=== PATIENT | female | born 1945 | race Caucasian/White ===

== ENCOUNTER → 2018-02-05 12:29 | Outpatient (CLI) | payer MEDICARE, SELFPAY ==
--- NOTE | 2018-02-05 12:33 | BI_ITS ---
MAMMOGRAPHY - BILATERAL SCREENING REASON FOR EXAM: Female, 72 years old. Routine annual screening examination. PERTINENT HISTORY: Mother with breast cancer. TECHNIQUE: Digital bilateral breast shayne (3D mammographic acquisition) in the CC and MLO projections. 2-D mediolateral oblique (MLO) and craniocaudad (CC) views of both breasts were obtained. CAD: Full Field Digital Mammography with Computer Added Detection was performed. COMPARISON: Comparison is made with prior examination dated April 22, 2015 and May 05, 2013. FINDINGS: Breast Composition: There are scattered areas of fibroglandular density. There are no dominant masses or suspicious calcifications. The right breast is larger than the left. This is unchanged. Stable 4.3 mm x 3.8 mm well-defined nodule in the anterior superior lateral portion of the right breast. This most likely represents a small lymph node. No other significant abnormalities are identified. There has been no significant change since the prior study. BI/SCREENING MAMM (CAD), BILAT IMPRESSION: Stable bilateral screening mammogram. Yearly follow-up mammogram recommended. (A) ASSESSMENT CATEGORY: BIRADS Category 2: Benign. A letter regarding these results will be sent to the patient by the facility within 30 days. Approximately 10% of breast cancers are not detected by mammography. A normal mammogram should not delay biopsy of a clinically suspicious abnormality. [id number] Electronically Signed: Juan Pablo Boo MD at 15:08 EST Tel [phone], Service support ,
--- NOTE | 2018-02-05 12:41 | BD_ITS ---
STUDY: DUAL ENERGY X-RAY ABSORPTIOMETRY / DXA REASON FOR EXAM: Female, 72 years old. Early menopause. Loss of height. TECHNIQUE: Bone Mineral Density (BMD) measurements of lumbar spine and bilateral hips were obtained. COMPARISON: Comparison is made with prior study dated January 22, 2013. FINDINGS: Lumbar Spine (L1-L4): g/cm2 (1.239) / T-score (0.6) / Z-score (2.3) Findings are suggestive of normal bone density with a low fracture risk. Left Femur Total: g/cm2 (0.937) / T-score (-0.6) / Z-score (1.0) Left Femoral Neck: g/cm2 (0.818) / T-score (-1.6) / Z-score (0.2) Right Femur Total: g/cm2 (0.923) / T-score (-0.7) / Z-score (0.9) Right Femoral Neck: g/cm2 (0.828) / T-score (-1.5) / Z-score (0.2) The T-Scores on the most recent prior examination were: Lumbar Spine (L1-L4): There has been improvement of bone density since the previous examination. Left Femur Total: which represents a worsening of 5.1%. Right Femur Total: which represents a worsening of 8.0%. BD/Dexa Bone Density Study IMPRESSION: The patient is considered osteopenic as outlined below according to World Chintan Organization (WHO) criteria with a moderate fracture risk. There has been worsening of bone density since the previous examination. Reference Information: The T-score is the number of standard deviations above or below the standard which is normal for young adults at their peak bone mineral density. The World Health Organization (WHO) interprets the T-scores as follows: Above -1 Normal bone density Between -1 and -2.5 Osteopenia Equal to / or below -2.5 Osteoporosis As a practical clinical guideline, osteopenia may be graded as follows: Mild -1 through -1.5 Moderate -1.6 through -2.0 Severe -2.1 through -2.4 The Z-score is the number of standard deviations above or below age-matched controls. A Z-score of less than -1.5 would be considered abnormal. References: 1. NIH Osteoporosis and Related Bone Diseases http://www.osteo.org 2. International Society for Clinical Densitometry http://www.iscd.org 3. National Osteoporosis Foundation http://www.nof.org Electronically Signed: Juan Pablo Boo MD at 13:18 EST Tel [phone], Service support ,
== END ==
PROVIDERS: Family Provider Nurse Practitioner; PCP Nurse Practitioner; Referring Provider Nurse Practitioner; Visit Provider Nurse Practitioner
DX: Z12.31 Encounter for screening mammogram for malignant neoplasm of breast (principal); Z78.0 Asymptomatic menopausal state; M85.80 Other specified disorders of bone density and structure, unspecified site
CPT/HCPCS: 77063; 77067; 77080

== ENCOUNTER → 2019-04-07 09:50 | Outpatient (CLI) | payer MEDICARE, SELFPAY ==
--- NOTE | 2019-04-07 09:58 | RAD_ITS ---
STUDY: X-RAY - LEFT WRIST REASON FOR EXAM: Female, 73 years old. PAIN AND SWELLING OVER WRIST NAVICULAR AREA TECHNIQUE: 3 view(s) of the wrist were obtained. COMPARISON: None. FINDINGS: Normal visualized distal radius and ulna. Normal radiocarpal articulation. Normal distal radioulnar articulation. Normal carpal bones. There is degenerative arthrosis of the carpal articulations. Normal carpometacarpal articulation of the thumb. Normal second through fifth carpometacarpal articulations. Normal visualized metacarpal bones. Calcification of the triangular fibrocartilage. 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 Calcification of the triangle fibrocartilage. Electronically Signed: Juan Pablo Boo, at 10:21 EST , Service support ,
--- NOTE | 2019-04-07 09:58 | RAD_ITS ---
STUDY: X-RAY - LEFT HAND REASON FOR EXAM: Female, 73 years old. PAIN AND SWELLING OVER WRIST AREA TECHNIQUE: 3 view(s) of the hand. COMPARISON: None. FINDINGS: Normal radiocarpal articulation. Normal distal radioulnar joint. Chondrocalcinosis of the triangular fibrocartilage. Normal visualized carpal bones. Normal carpal articulations There is degenerative arthrosis of the carpometacarpal (CMC) articulation of the thumb. Normal second through fifth carpometacarpal joints. Normal metacarpi. Normal metacarpophalangeal joint of the thumb. Normal interphalangeal joint of the thumb. Normal proximal and distal phalanges of the thumb. Normal metacarpophalangeal joints of the second through fifth fingers. Normal proximal and distal interphalangeal joints of the second through fifth fingers. Normal phalanges of the second through fifth fingers. The soft tissue structures are unremarkable. RAD/Hand Min 3 Views IMPRESSION: Degenerative changes of the carpometacarpal joint. Calcification of the triangular fibrocartilage. Electronically Signed: Juan Pablo Boo, at 10:21 EST , Service support ,
== END ==
PROVIDERS: PCP Nurse Practitioner; Referring Provider Nurse Practitioner Gerontology; Visit Provider Nurse Practitioner Gerontology
DX: M25.532 Pain in left wrist (principal); M79.642 Pain in left hand
CPT/HCPCS: 73110; 73130

== ENCOUNTER → 2019-09-04 15:19 | Outpatient (CLI) | payer MEDICARE, SELFPAY ==
--- NOTE | 2019-09-04 15:21 | BI_ITS ---
MAMMOGRAPHY - BILATERAL SCREENING REASON FOR EXAM: Female, 74 years old. Routine annual screening examination. PERTINENT HISTORY: Mother with breast cancer. TECHNIQUE: Digital bilateral breast ava (3D mammographic acquisition) in the CC and MLO projections. 2-D mediolateral oblique (MLO) and craniocaudad (CC) views of both breasts were obtained. CAD: Full Field Digital Mammography with Computer Added Detection was performed. COMPARISON: Comparison is made with prior examination dated February 05, 2018 and April 22, 2015. FINDINGS: Breast Composition: There are scattered areas of fibroglandular density. There are no dominant masses or suspicious calcifications. Once again, the right breast is larger than the left. This is unchanged. Stable 4.3 mm x 3.8 mm well-defined nodule with a central fatty hilum in the anterior upper lateral portion of the right breast. This most like represents a small lymph node. No other significant abnormalities are identified. There has been no significant change since the prior study. BI/SCREEN MAMM (CAD) W/AVA BILAT IMPRESSION: Stable bilateral screening mammogram. Yearly follow-up mammogram recommended. (A) ASSESSMENT CATEGORY: BIRADS Category 2: Benign. A letter regarding these results will be sent to the patient by the facility within 30 days. Approximately 10% of breast cancers are not detected by mammography. A normal mammogram should not delay biopsy of a clinically suspicious abnormality. [id number] Electronically Signed: Juan Pablo Boo, at 9:56 EDT , Service support ,
== END ==
PROVIDERS: PCP Nurse Practitioner; Referring Provider Nurse Practitioner; Visit Provider Nurse Practitioner
DX: Z12.31 Encounter for screening mammogram for malignant neoplasm of breast (principal); Z80.3 Family history of malignant neoplasm of breast
CPT/HCPCS: 77063; 77067

== ENCOUNTER → 2020-09-07 07:03 | Outpatient (CLI) | payer MEDICARE, SELFPAY ==
--- NOTE | 2020-09-07 07:07 | BI_ITS ---
MAMMOGRAPHY - BILATERAL SCREENING REASON FOR EXAM: Female, 75 years old. Routine annual screening examination. PERTINENT HISTORY: Mother with breast cancer. TECHNIQUE: Digital bilateral breast ava (3D mammographic acquisition) in the CC and MLO projections. 2-D mediolateral oblique (MLO) and craniocaudad (CC) views of both breasts were obtained. CAD: Full Field Digital Mammography with Computer Added Detection was performed. COMPARISON: Comparison is made with prior study dated 09/04/2019 and 02/05/2018. FINDINGS: Breast Composition: There are scattered areas of fibroglandular density. There are no dominant masses or suspicious calcifications. Stable 4.3 mm x 3.8 mm well-defined nodule with a central fatty hilum in the anterior upper lateral portion of the right breast suggestive of a small lymph node. No other significant abnormalities are identified. There has been no significant change since the prior study. BI/SCRN MAMM (CAD)W/AVA BILAT IMPRESSION: Stable bilateral screening mammogram. Yearly follow-up mammogram recommended. (A) ASSESSMENT CATEGORY: BIRADS Category 2: Benign. A letter regarding these results will be sent to the patient by the facility within 30 days. Approximately 10% of breast cancers are not detected by mammography. A normal mammogram should not delay biopsy of a clinically suspicious abnormality. [id number] Electronically Signed: Juan Pablo Boo MD at 9:29 EDT , Service support ,
== END ==
PROVIDERS: PCP Nurse Practitioner; Referring Provider Nurse Practitioner; Visit Provider Nurse Practitioner
DX: Z12.31 Encounter for screening mammogram for malignant neoplasm of breast (principal)
CPT/HCPCS: 77063; 77067

== ENCOUNTER → 2020-12-16 12:14 | Outpatient (CLI) | payer MEDICARE, SELFPAY ==
--- NOTE | 2020-12-16 12:20 | BD_ITS ---
STUDY: DUAL ENERGY X-RAY ABSORPTIOMETRY / DXA REASON FOR EXAM: Female, 75 years old. 627.8Menopausal postmenopausalBONE DENSITY REASON FOR EXAM TECHNIQUE: Bone Mineral Density (BMD) measurements of lumbar spine and bilateral hips were obtained. COMPARISON: Comparison is made with prior examination dated 02/05/2018. FINDINGS: Lumbar Spine (L1-L4): g/cm2 (1.027) / T-score (-0.2) / Z-score (2.2) Findings are suggestive of normal bone density with a low fracture risk. Left Femur Total: g/cm2 (0.835) / T-score (-0.9) / Z-score (0.9) Left Femoral Neck: g/cm2 (0.662) / T-score (-1.7) / Z-score (0.4) Right Femur Total: g/cm2 (0.867) / T-score (-0.6) / Z-score (1.1) Right Femoral Neck: g/cm2 (0.640) / T-score (-1.9) / Z-score (0.2) The T-Scores on the most recent prior examination were: Lumbar Spine (L1-L4): There has been worsening of bone density since the previous examination. Left Femur Total: which represents a worsening of 4.3%. Right Femur Total: which represents an improvement of 0.9%. BD/Dexa Bone Density Study IMPRESSION: The patient is considered osteopenic as outlined below according to World Chintan Organization (WHO) criteria with a moderate fracture risk. There has been worsening of bone density since the previous examination. Reference Information: The T-score is the number of standard deviations above or below the standard which is normal for young adults at their peak bone mineral density. The World Health Organization (WHO) interprets the T-scores as follows: Above -1 Normal bone density Between -1 and -2.5 Osteopenia Equal to / or below -2.5 Osteoporosis As a practical clinical guideline, osteopenia may be graded as follows: Mild -1 through -1.5 Moderate -1.6 through -2.0 Severe -2.1 through -2.4 The Z-score is the number of standard deviations above or below age-matched controls. A Z-score of less than -1.5 would be considered abnormal. References: 1. NIH Osteoporosis and Related Bone Diseases www osteo.org 2. International Society for Clinical Densitometry www iscd.org 3. National Osteoporosis Foundation www nof.org Electronically Signed: Juan Pablo Boo MD at 8:51 EDT , Service support ,
== END ==
PROVIDERS: PCP Nurse Practitioner; Referring Provider Nurse Practitioner; Visit Provider Nurse Practitioner
DX: Z78.0 Asymptomatic menopausal state (principal); N95.9 Unspecified menopausal and perimenopausal disorder; M85.80 Other specified disorders of bone density and structure, unspecified site
CPT/HCPCS: 77080

== ENCOUNTER 2021-11-15 16:21 | Emergency (ER) | payer MEDICARE, SELFPAY ==
[2021-11-15 16:22] VITALS: BP 156/88; PULSE 101; RESP 18; TEMP 36.9; O2SAT 100; BMI 30.6
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
--- NOTE | 2021-11-15 16:35 | RAD_ITS ---
STUDY: XR Hand Min 3 Views REASON FOR EXAM: Female, 76 years old. pain TECHNIQUE: XR Hand Min 3 Views RIGHT COMPARISON: None. FINDINGS: Normal radiocarpal articulation. Normal distal radioulnar joint. Normal visualized carpal bones. There is degenerative joint disease of the carpal articulations. There is degenerative arthrosis of the carpometacarpal (CMC) articulation of the thumb. Normal second through fifth carpometacarpal joints. Normal metacarpi. Normal metacarpophalangeal joint of the thumb. Normal interphalangeal joint of the thumb. Normal proximal and distal phalanges of the thumb. Normal metacarpophalangeal joints of the second through fifth fingers. Normal proximal and distal interphalangeal joints of the second through fifth fingers. Normal phalanges of the second through fifth fingers. The soft tissue structures are unremarkable. 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 There is degenerative arthrosis of the carpometacarpal (CMC) articulation of the thumb. Electronically Signed: Armando Pollack MD at 17:01 EDT ,
[2021-11-15] MEDS: Cephalexin 250 MG Capsule 500 MG PO (17:04)
[2021-11-15] MEDS: Ibuprofen 600 MG Tablet PO (17:04)
[2021-11-15 17:33] VITALS: PULSE 105; RESP 16; O2SAT 99
== END 2021-11-15 17:33 | disposition home or self-care (01) ==
PROVIDERS: Emergency Provider Student in an Organized Health Care Education/Training Program; PCP Nurse Practitioner Family; Visit Provider Student in an Organized Health Care Education/Training Program
DX: L03.113 Cellulitis of right upper limb (principal); F03.90 Unspecified dementia, unspecified severity, without behavioral disturbance, psychotic disturbance, mood disturbance, and anxiety; Z79.899 Other long term (current) drug therapy
CPT/HCPCS: 73130; 99283

== ENCOUNTER 2022-06-04 17:46 | Emergency (ER) | payer MEDICARE, SELFPAY ==
[2022-06-04 17:47] VITALS: BP 90/55; PULSE 79; RESP 17; TEMP 35.9; O2SAT 97; BMI 29.0
[2022-06-04 17:53] VITALS: BP 90/55; PULSE 71; RESP 17; O2SAT 98
--- NOTE | 2022-06-04 18:00 | EKG12_ITS ---
Test Reason : POSS SYNCOPE Blood Pressure : / mmHG Vent. Rate : 074 BPM Atrial Rate : 074 BPM P-R Int : 160 ms QRS Dur : 072 ms QT Int : 406 ms P-R-T Axes : 033 -01 013 degrees QTc Int : 450 ms Normal sinus rhythm Inferior infarct , age undetermined Abnormal ECG Confirmed by JAYRO DON, KELLY ([id number]), editor at large CHARITO HAJI ([id number]) on 06/07/2022 10:01:19 AM Referred By: GABRIELA/ETHAN Confirmed By:AKIKO DIAL MD
--- NOTE | 2022-06-04 18:10 | CT_ITS ---
STUDY: CT BRAIN WITHOUT CONTRAST REASON FOR EXAM: Female, 77 years old. confusion Individualized dose optimization techniques were used for this CT. TECHNIQUE: Transaxial CT imaging of the brain was performed without administration of intravenous contrast material. COMPARISON: 05.16.16 FINDINGS: There are calcifications noted in the distal vertebral arteries. There are calcifications noted in the cavernous carotid arteries. This is consistent for atherosclerotic disease. Normal calvarium. Normal soft tissues. There is mild cerebral atrophy with widening of the extra-axial spaces and ventricular dilatation. There are areas of decreased attenuation within the white matter tracts of the supratentorial brain, consistent with microvascular disease changes. Normal basal ganglia and thalami. Normal brainstem. There is mild cerebellar atrophy. There is no intracranial hemorrhage. There are no findings of an acute ischemic infarction. Normal visualized paranasal sinuses. ASPECTS Score for Acute Strokes: 12/12 CT/Brain/Head without Contrast IMPRESSION: There are no acute findings. Chronic involutional changes of the brain. Electronically Signed: Armando Pollack MD at 18:59 EDT ,
--- NOTE | 2022-06-04 18:11 | EX.ED.DYSGE1 ---
HPI History of Present Illness Chief Complaint: Alt LOC Detail of Chief Complaint: Syncope/mental status change Informant: family Narrative Narrative: Patient presents to the emergency department via EMS with complaint of mental status change. Apparently they were at a birthday libertarian with family and while seated she was noted to be going in and out of consciousness.. On EMS arrival patient was hypotensive. Patient has not been ill recently. Patient is a very poor historian as she has history of dementia that she has been been diagnosed with for about 7 or 8 years. The history comes from and family members. Patient has never had an episode like this before. PFSH PFSH Medical History Dementia Hyperlipidemia Hypertension Kidney stones Non-smoker Home Medications Quinapril Hcl [Accupril] 10 mg PO DAILY 07/31/16 [History Last Taken 07/31/16] diazepam 2 mg tablet 2 mg PO QHS PRN PRN Muscle Spasm ##5 07/31/16 [Rx Last Taken Unknown] memantine 10 mg tablet 10 mg PO BID 07/31/16 [History Last Taken 07/31/16] cephalexin 250 mg/5 mL oral suspension 500 mg (10 mL) PO TID 7 days #210 mL 11/15/21 [Rx Last Taken Unknown] lisinopril 10 mg tablet 10 mg PO DAILY 06/04/22 [History Last Taken Unknown] Allergy/AdvReac Type Severity Reaction Status Date / Time No Known Allergies Allergy Verified 06/04/22 17:52 Surgical History History of hysterectomy Social History Smoking Status: Never smoker ROS ROS ED Review of Systems ROS Unobtainable: due to mental condition and due to mental status EXAM Physical Exam Const Vital Signs: 06/04/22 17:47 06/04/22 17:53 06/04/22 18:58 Temperature 96.7 F L Temperature Source Temporal Pulse Rate 79 71 93 Respiratory Rate 17 17 15 Blood Pressure 90/55 L 90/55 L 106/65 Blood Pressure Mean 66 66 78 Pulse Ox 97 98 98 Oxygen Delivery Method Room Air Room Air Room Air Positive well nourished and well developed General Appearance ED: well developed and NAD HEENT Reports TM's clear and moist mucous membranes normocephalic and atraumatic; Negative for trauma or tenderness Tympanic Membrane ED: Yes TM's clear Eyes PERRL and EOMs intact bilaterally General Eye ED: Negative for pale conjunctiva or scleral icterus Neck no lymphadenopathy, supple and no JVD General: Negative for tenderness Chest Wall inspection of chest normal and palpation of chest normal Chest: Negative for tenderness Resp normal respiratory effort and clear to auscultation bilaterally Effort and Inspection: Negative for respiratory distress or pain with movement Auscultation: Negative for rhonchi, wheezes or diminished lung sounds Cardio regular rate, regular rhythm, S1 normal heart sound, S2 normal heart sound and no murmurs Peripheral Pulses: pulses 2+ throughout GI normal to inspection, nondistended, normoactive bowel sounds, soft to palpation, non-tender, non-distended and no masses Back/Spine no CVA tenderness and no thoracic nor lumbar tenderness Extremity normal to inspection General Extremety ED: Negative for edema General Extremity: Negative for edema Neuro oriented x3, CN's II-XII intact bilaterally, no sensory deficits noted and gait normal Neuro Narrative: Patient is awake and alert to person. She attempts to follow commands. No focal deficits noted. Sensorium / Orientation: awake, alert, oriented to person, oriented to place and oriented to time Motor Exam: strength 5/5 throughout and strength abnormal Psych mental status grossly normal Skin no rashes or lesions noted and no wounds MDM MDM MDM Narrative Medical decision making narrative: Patient presents with near syncopal episode and hypotension while at a birthday libertarian. Prior to patient's episode she was blowing out some candles on a cake. Patient's not had an episode like this before. She is not a good historian therefore the history comes from the . EKG obtained on arrival showed a sinus rhythm with a rate of 74 bpm with no acute ST segment changes. CBC with differential was normal. Chemistries were normal. BUN 20 and creatinine 1.49. Troponin was normal at 12. CT scan of the brain without contrast showed chronic involutional changes with no acute findings. Urinalysis was normal. 1 department she was given a liter normal same fluid bolus and her blood pressure normalized. She was ambulated in the department and was able to ambulate without difficulty. Her and family believes she is back to her baseline. At this point etiology of her episode unclear although I suspect likely vagal reaction. I advised on pushing fluids and follow-up with primary care physician within next 3 to 5 days. Lab Data Attestation: I reviewed the patient's lab results. Labs: Laboratory Results - last 24 hr 06/04/22 06/04/22 06/04/22 17:50 17:50 18:21 WBC 9.3 RBC 4.88 Hgb 14.2 Hct 42.6 MCV 87.3 MCH 29.1 MCHC 33.3 RDW Std Deviation 42.7 RDW Coeff of Karen 13.4 Plt Count 186 MPV 8.9 Immature Gran % (Auto) 0.500 Neut % (Auto) 57.7 Lymph % (Auto) 32.4 [place] % (Auto) 8.1 Eos % (Auto) 0.9 Baso % (Auto) 0.4 Absolute Neuts (auto) 5.3 Absolute Lymphs (auto) 3.00 Nucleated RBC % 0 Sodium 140 Potassium 3.8 Chloride 110 H Carbon Dioxide 24.0 Anion Gap 6 BUN 20 H Creatinine 1.49 H Estim Creat Clear Calc 24.24 Est GFR (MDRD) Af Amer 44 L Est GFR (MDRD) Non-Af 36 L BUN/Creatinine Ratio 13.4 Glucose 183 H Calcium 9.3 Troponin I High Sens 12 Urine Color Yellow Urine Clarity Clear Urine pH 5.0 Ur Specific [place] 1.020 Urine Protein 30 H Urine Glucose (UA) Normal Urine Ketones Negative Urine Occult Blood 50 H Urine Nitrite Negative Urine Bilirubin Negative Urine Urobilinogen 1 H Ur Leukocyte Esterase Negative Urine RBC 0-5 SEEN Urine WBC 0 SEEN Ur Squamous Epith Cells 0 SEEN Urine Bacteria 0 SEEN Hyaline Casts 5-10 SEEN Urine Mucus RARE Radiography Diagnostic Testing: Clinical Impression(s) from Imaging Studies Brain CT 06/04/22 18:10 IMPRESSION: There are no acute findings. Chronic involutional changes of the brain. Electronically Signed: Armando Pollack MD at 18:59 EDT , EKG Initial EKG: Attestation: I personally reviewed and interpreted this EKG as follows: Comments: Sinus rhythm with a rate of 74 bpm with no acute ST segment changes noted. Discharge Plan Triage Chief Complaint: Alt LOC ED Provider: Ungur,Remus Dx/Rx/DC Orders Clinical Impression: Syncope, near, Transient hypotension, Acute renal insufficiency Instructions: ED Fainting, Vagal Reaction, ED Near-Fainting, Uncertain Cause Prescriptions: No Action memantine 10 MG tablet 10 mg PO BID Quinapril Hcl [Accupril] 10 MG tablet 10 mg PO DAILY diazepam 2 MG tablet 2 mg PO QHS PRN PRN (Reason: Muscle Spasm) Qty: 5 0RF cephalexin 250 mg/5 mL suspension for reconstitution 500 mg PO TID 7 Days Qty: 210 0RF lisinopril 10 mg tablet 10 mg PO DAILY Label Comments: TAKE 1 TABLET BY MOUTH ONCE DAILY Primary Care Provider: Marivel Cox Referrals: Marivel Cox, [facility] [Primary Care Provider] - 3-5 Days Disposition Disposition: Home, Self Care
[2022-06-04] MEDS: 0.9% Normal Saline 1,000 ML 1000 ML IV (18:12)
[2022-06-04 18:18] LABS: Absolute Neutrophil Count 5.3 X10^3/uL (2.0-7.7); Basophil# 0.04 X10^3/uL; Basophil% 0.4 % (0-1); Eosinophil# 0.08 X10^3/uL; Eosinophils% 0.9 % (0-5); Hematocrit 42.6 % (37-47); Hemoglobin 14.2 g/dL (12.0-15.0); Lymphocyte % 32.4 % (19-41); Mean Corp Hgb Conc 33.3 g/dL (32-36); Mean Corpuscular Hgb 29.1 pg (27.0-32.0); Mean Corpuscular Volume 87.3 fL (81-99); Mean Platelet Vol. 8.9 fl (6.2-12.0); Monocyte# 0.75 X10^3/uL; Monocyte% 8.1 % (0-10); NRBC Flagged by Analyzer 0 % (0-5); Neutrophil # 5.33 X10^3/uL (2.7-7.7); Neutrophil % 57.7 % (47-70); Platelet Count 186 K/mm3 (150-450); RBC Distribution Width CV 13.4 % (11.6-14.6); RBC Distribution Width SD 42.7 fl (35.1-43.9); Red Blood Count 4.88 M/mm3 (4.2-5.4); White Blood Count 9.3 K/mm3 (4.4-11.0)
[2022-06-04 18:29] LABS: Bacteria 0 SEEN /hpf (None Seen); Squamous Epithelial Cells - UA 0 SEEN /hpf (5-10); White Blood Cells 0 SEEN /hpf (0-5)
[2022-06-04 18:30] LABS: Color, Urine Yellow (Yellow); Glucose, Dipstick Normal (Normal); Ketone-Dipstick Negative (Negative); Leukocyte Esterase-Dipstick Negative /ul (Negative); Nitrite-Dipstick Negative (Negative); Occult Blood-Urine 50 /ul (Negative); Protein-Dipstick 30 mg/dl (Negative); Urine Bilirubin Dipstick Negative (Negative); Urine Clarity Clear (Clear); Urine Urobilinogen 1 mg/dl (Normal)
[2022-06-04 18:35] LABS: Anion Gap 6 (5-15); BUN 20 mg/dL (7-18); BUN/Creat Ratio 13.4 RATIO (10-20); Calcium,Total 9.3 mg/dL (8.5-10.1); Chloride 110 mmol/L (98-107); Creatinine, Serum 1.49 mg/dL (0.55-1.02); EST Glomerular Filtration Rate 36 mL/min (>60); Est Glom Filt Rate - Afr Amer 44 mL/min (>60); Estimated Creatinine Clearance 24.24 ml/min; Glucose 183 mg/dL (74-106); Potassium 3.8 mmol/L (3.5-5.1); Sodium Level 140 mmol/L (136-145); Troponin-I HS (w/2H Reflex) 12 pg/mL (3.0-54.0)
[2022-06-04 18:42] LABS: Hyaline Cast 5-10 SEEN /lpf (0-5)
[2022-06-04 18:43] LABS: Mucous, Urine RARE /hpf (<or=2+); Red Blood Cells-Urine 0-5 SEEN /hpf (0-5)
[2022-06-04 18:58] VITALS: BP 106/65; PULSE 93; RESP 15; O2SAT 98
[2022-06-04 19:53] VITALS: BP 140/62; PULSE 93; RESP 20; O2SAT 95
[2022-06-04 20:15] LABS: Reflex Troponin-HS? (from REC) Y
== END 2022-06-04 20:28 | disposition home or self-care (01) ==
PROVIDERS: Emergency Provider Emergency Medicine; PCP Nurse Practitioner Family; Visit Provider Emergency Medicine
DX: R55 Syncope and collapse (principal); E78.5 Hyperlipidemia, unspecified; I10 Essential (primary) hypertension; I95.89 Other hypotension; N28.9 Disorder of kidney and ureter, unspecified; R41.82 Altered mental status, unspecified; Z79.899 Other long term (current) drug therapy
CPT/HCPCS: 70450; 80048; 81001; 84484; 85025; 93005; 96360; 96361; 99285

== ENCOUNTER 2023-01-12 16:42 | Emergency (ER) | payer MEDICARE, SELFPAY ==
[2023-01-12 16:43] VITALS: PULSE 98; RESP 16; TEMP 37.2; O2SAT 100
[2023-01-12 16:58] VITALS: BP 137/78; PULSE 89; RESP 20; O2SAT 97
--- NOTE | 2023-01-12 17:18 | EKG12_ITS ---
Test Reason : WEAKNESS Blood Pressure : / mmHG Vent. Rate : 088 BPM Atrial Rate : 088 BPM P-R Int : 144 ms QRS Dur : 070 ms QT Int : 374 ms P-R-T Axes : 015 005 034 degrees QTc Int : 452 ms Sinus rhythm with Premature atrial complexes with Aberrant conduction Nonspecific ST abnormality Abnormal ECG Confirmed by JAYRO DON, KELLY ([id number]), supervising editor news reel LONG PEDRO [id number]) on 01/15/2023 8:28:36 AM Referred By: Confirmed By:AKIKO DIAL MD
--- NOTE | 2023-01-12 17:19 | EX.ED.DYSGE1 ---
HPI History of Present Illness Chief Complaint: Weakness Informant: spouse/S.O. Limited: dementia Narrative Narrative: Patient is a 77-year-old female with history of severe dementia, nonverbal as well as hypertension presenting for increased malaise and fatigue today. She seemed fine yesterday per and ate dinner like normal (they had pizza). He dropped her off this morning at her care center and there she had decreased activity and slept most the day. She is also noted to be coughing, sneezing having watery eye. She did not really eat breakfast or lunch today. As its the weekend coming up the wanted to bring her in and have her evaluated to make sure nothing more severe going on. No report of any fevers. While driving here she did have an episode of urinary incontinence the does not think the center took her to the bathroom like they are supposed to today. In addition she seems to point to her throat as if it was bothering her. PFSH PFSH Medical History Dementia Hyperlipidemia Hypertension Kidney stones Non-smoker Home Medications Quinapril Hcl [Accupril] 10 mg PO DAILY 07/31/16 [History Last Taken 07/31/16] diazepam 2 mg tablet 2 mg PO QHS PRN PRN Muscle Spasm ##5 07/31/16 [Rx Last Taken Unknown] memantine 10 mg tablet 10 mg PO BID 07/31/16 [History Last Taken 07/31/16] cephalexin 250 mg/5 mL oral suspension 500 mg (10 mL) PO TID 7 days #210 mL 11/15/21 [Rx Last Taken Unknown] lisinopril 10 mg tablet 10 mg PO DAILY 06/04/22 [History Last Taken Unknown] nirmatrelvir 300 mg (150 mg x2)-ritonavir 100 mg tablet,dose pack (Paxlovid) See Rx Instructions PO .COMPLEX #30 tabs 01/12/23 [Rx Last Taken Unknown] Allergy/AdvReac Type Severity Reaction Status Date / Time No Known Allergies Allergy Verified 01/12/23 16:43 Surgical History History of hysterectomy Social History Smoking Status: Never smoker ROS ROS ED Review of Systems ROS Unobtainable: other Details: Dementia, nonverbal Constitutional Constitutional ED: Denies fever(s) Respiratory/Chest Respiratory/Chest: Reports cough EXAM Physical Exam Const Vital Signs: 01/12/23 16:43 01/12/23 16:58 01/12/23 16:58 Temperature 98.9 F Temperature Source Temporal Pulse Rate 98 89 Respiratory Rate 16 20 H Respiratory Pattern Normal Blood Pressure 137/78 H Blood Pressure Mean 97 Pulse Ox 100 97 Oxygen Delivery Method Room Air Room Air 01/12/23 18:21 Temperature Temperature Source Pulse Rate 98 Respiratory Rate 16 Respiratory Pattern Blood Pressure 107/76 Blood Pressure Mean 86 Pulse Ox 97 Oxygen Delivery Method Positive well nourished and well developed General Appearance ED: well developed and NAD HEENT Reports TM's clear and moist mucous membranes Tympanic Membrane ED: Yes TM's clear Eyes PERRL and EOMs intact bilaterally Eyes Narrative: tearing of eyes Neck supple and no JVD Chest Wall inspection of chest normal and palpation of chest normal Resp normal respiratory effort and clear to auscultation bilaterally Cardio regular rate and regular rhythm GI normal to inspection, nondistended, normoactive bowel sounds and non-tender Back/Spine no CVA tenderness Extremity normal to inspection Neuro Neuro Narrative: at baseline , nonverbal Sensorium / Orientation: alert and orientation impaired Psych mental status grossly normal Skin no rashes or lesions noted and no wounds MDM MDM MDM Narrative Medical decision making narrative: Patient evaluated for 1 day of weakness and cough. She appears nontoxic and in no acute distress. Vital signs are normal. No increased work of breathing. Does have a mild shallow cough on evaluation. Differential includes viral illness, aspiration pneumonia, urinary tract infection or dehydration. CBC, CMP and chest x-ray obtained as well as COVID test. Patient is COVID-positive which likely explains her symptoms. CBC is normal and CMP shows a mildly elevated creatinine of 1.2 which appears to be at her baseline if not slightly improved. She is given a 500 cc bolus in the ER. Unable to provide a urine sample but given I have another source of her symptoms will not attempt another straight cath. Chest x-rays not show any acute infiltrate. Patient is ambulated with no desaturation. At this time I do not think she requires admission. She is a candidate for Paxlovid due to her age. is agreeable with giving it to her. She will need to crush it up as she does not take pills. He is counseled and side effects of Paxlovid and if she experiences signs of dehydration, dizziness, worsening symptoms difficulty breathing she should return to the emergency room. He verbalizes agreement understanding of this and will encourage fluids at home. Discussed using honey to help with cough. Can also use [id number] cough medicines as long as they do not contain a decongestant. Lab Data Attestation: I reviewed the patient's lab results. Labs: Laboratory Results - last 24 hr 01/12/23 17:28 WBC 8.9 RBC 5.08 Hgb 14.5 Hct 45.8 MCV 90.2 MCH 28.5 MCHC 31.7 L RDW Std Deviation 42.4 RDW Coeff of Karen 13.0 Plt Count 106 L MPV 8.8 Immature Gran % (Auto) 0.200 Neut % (Auto) 60.8 Lymph % (Auto) 21.8 [place] % (Auto) 16.5 H Eos % (Auto) 0.3 Baso % (Auto) 0.4 Absolute Neuts (auto) 5.4 Absolute Lymphs (auto) 1.95 Nucleated RBC % 0 Sodium 138 Potassium 3.9 Chloride 110 H Carbon Dioxide 25.0 Anion Gap 3 L BUN 20 H Creatinine 1.20 H Est GFR (MDRD) Af Amer 56 L Est GFR (MDRD) Non-Af 46 L BUN/Creatinine Ratio 16.7 Glucose 93 Calcium 8.7 Total Bilirubin 0.50 AST 12 L ALT 10 L Alkaline Phosphatase 83 Total Protein 7.0 Albumin 3.3 Globulin 3.7 Albumin/Globulin Ratio 0.9 Radiography Chest X-Ray - ED: 1 View, Read by ED Physician, Read by Radiologist and No Acute Disease Diagnostic Testing: Clinical Impression(s) from Imaging Studies Chest X-Ray 01/12/23 17:37 IMPRESSION: No active disease. Electronically Signed: Roberto Dey MD at 18:11 EST , Rhythm Strip Rhythm Strip: Sinus Rhythm Rate: 88 Ectopy: None EKG Initial EKG: Attestation: I personally reviewed and interpreted this EKG as follows: Interpretation: Sinus Rhythm Comments: Sinus rhythm at a rate of 88 bpm with PAC Normal axis Normal intervals Normal ST segments Discharge Plan Triage Chief Complaint: Weakness ED Provider: Lynn Weinberg Dx/Rx/DC Orders Clinical Impression: COVID-19, Weakness Instructions: Coronavirus Disease 2019 (COVID-19): Caring for Yourself or Others Prescriptions: New Paxlovid 300 mg (150 mg x 2)-100 mg tablets,dose pack See Rx Instructions .ROUTE .COMPLEX Qty: 30 0RF Rx Instructions: take TWO 150 mg tablets of nirmatrelvir with ONE 100 mg tablet of ritonavir twice daily for 5 days. Crush pills and mix with soft food. No Action memantine 10 MG tablet 10 mg PO BID Quinapril Hcl [Accupril] 10 MG tablet 10 mg PO DAILY diazepam 2 MG tablet 2 mg PO QHS PRN PRN (Reason: Muscle Spasm) Qty: 5 0RF cephalexin 250 mg/5 mL suspension for reconstitution 500 mg PO TID 7 Days Qty: 210 0RF lisinopril 10 mg tablet 10 mg PO DAILY Patient Comments: TAKE 1 TABLET BY MOUTH ONCE DAILY Primary Care Provider: Marivel Cox Referrals: Marivel Cox, [facility] MANAGER-C [Primary Care Provider] - Activity Restrictions/Additional Instructions: Encourage fluids. Ms. Machado does have a COVID-19 infection which likely cause of her symptoms. Because of the acute onset she is a candidate for the antiviral medicine, Paxlovid. You can crush up the pills and mix with applesauce or other food that she would like/tolerate. Encourage fluids to prevent dehydration. If she seems to be worsening her have difficulty breathing please return to the emergency room. She may continue taking her memantine.
[2023-01-12] MEDS: 0.9% Normal Saline (500mL Bag) 500 ML 999 ML IV (17:31)
[2023-01-12 17:35] LABS: Absolute Lymphocyte Count 1.95 X10^3/uL (0.83-4.51); Absolute Neutrophil Count 5.4 X10^3/uL (2.0-7.7); Basophil# 0.04 X10^3/uL; Basophil% 0.4 % (0-1); Eosinophil# 0.03 X10^3/uL; Eosinophils% 0.3 % (0-5); Hematocrit 45.8 % (37-47); Hemoglobin 14.5 g/dL (12.0-15.0); Lymphocyte # 1.95 X10^3/ul (0.83-4.51); Lymphocyte % 21.8 % (19-41); Mean Corp Hgb Conc 31.7 g/dL (32-36); Mean Corpuscular Hgb 28.5 pg (27.0-32.0); Mean Corpuscular Volume 90.2 fL (81-99); Mean Platelet Vol. 8.8 fl (6.2-12.0); Monocyte# 1.47 X10^3/uL; Monocyte% 16.5 % (0-10); NRBC Flagged by Analyzer 0 % (0-5); Neutrophil # 5.42 X10^3/uL (2.7-7.7); Neutrophil % 60.8 % (47-70); Platelet Count 106 K/mm3 (150-450); RBC Distribution Width SD 42.4 fl (35.1-43.9); Red Blood Count 5.08 M/mm3 (4.2-5.4); White Blood Count 8.9 K/mm3 (4.4-11.0)
--- NOTE | 2023-01-12 17:37 | RAD_ITS ---
STUDY: X-RAY CHEST REASON FOR EXAM: Female, 77 years old. cough TECHNIQUE: Single AP portable view of the chest. COMPARISON: None. FINDINGS: The lungs are clear and expanded. Slightly elevated right hemidiaphragm. Normal size heart. Normal mediastinum and carlos a. Normal visualized pulmonary arteries. Normal visualized aortic arch and descending thoracic aorta. There is a dextroscoliosis of the thoracic spine. Normal visualized ribs, clavicles, and shoulders. There is no demonstrated abnormality of the visualized soft tissue structures of the upper abdomen. RAD/Chest 1 View (Portable) IMPRESSION: No active disease. Electronically Signed: oRberto Dey MD at 18:11 EST ,
[2023-01-12 17:52] LABS: ALB/GLOB Ratio 0.9 RATIO (0.9-2.4); AST(SGOT) 12 U/L (15-37); Alanine Aminotransfer ALT/SGPT 10 U/L (13-56); Albumin, Serum 3.3 g/dL (3.2-5.0); Alkaline Phosphatase 83 U/L (45-117); Anion Gap 3 (5-15); BUN 20 mg/dL (7-18); BUN/Creat Ratio 16.7 RATIO (10-20); Calcium,Total 8.7 mg/dL (8.5-10.1); Chloride 110 mmol/L (98-107); EST Glomerular Filtration Rate 46 mL/min (>60); Est Glom Filt Rate - Afr Amer 56 mL/min (>60); Globulin 3.7 g/dL (2.2-4.2); Glucose 93 mg/dL (74-106); Potassium 3.9 mmol/L (3.5-5.1); Sodium Level 138 mmol/L (136-145)
[2023-01-12 18:17] VITALS: O2SAT 99
[2023-01-12 18:21] VITALS: BP 107/76; PULSE 98; RESP 16; O2SAT 97
[2023-01-12 19:19] VITALS: BP 107/76
== END 2023-01-12 19:20 | disposition home or self-care (01) ==
PROVIDERS: Emergency Provider Emergency Medicine; PCP Nurse Practitioner Family; Visit Provider Emergency Medicine
DX: U07.1 COVID-19 (principal); F03.90 Unspecified dementia, unspecified severity, without behavioral disturbance, psychotic disturbance, mood disturbance, and anxiety; R53.1 Weakness; I10 Essential (primary) hypertension; E78.5 Hyperlipidemia, unspecified
CPT/HCPCS: 71045; 80053; 85025; 87811; 90471; 93005; 96360; 99283; J7040; A4216

== ENCOUNTER 2023-05-23 10:42 | Emergency (ER) | payer MEDICARE, SELFPAY ==
[2023-05-23] VITALS (13 sets, daily range): BP systolic 114–147; BP diastolic 70–127; PULSE 61–84; RESP 12–18; TEMP 35.9–37; O2SAT 95–97; BMI 27.3
--- NOTE | 2023-05-23 11:10 | EDS_ITS ---
HPI History of Present Illness Chief Complaint: Cough Informant: spouse/S.O. Limited: dementia Onset/Context/Timing Onset: Yesterday Context: Gradual Onset Timing: Continuous Quality: Decreased activity Location: Generalized Worsened by: Nothing Relieved by: Nothing Narrative Narrative: Patient presents with cough that has been getting worse over the past couple days. states that the patient has not been as active today. denies any sputum production. denies any subjective fevers or chills. denies any nausea, vomiting, or diarrhea. Patient has a history of dementia and is nonverbal. denies any difficulty breathing. states he had a recent upper respiratory infection. PFSH PFS Medical History Dementia Hyperlipidemia Hypertension Kidney stones Non-smoker Home Medications memantine 10 mg tablet 10 mg PO BID 07/31/16 [History Last Taken 05/22/23] Allergy/AdvReac Type Severity Reaction Status Date / Time No Known Allergies Allergy Verified 05/23/23 10:46 Surgical History History of hysterectomy Social History Smoking Status: Never smoker ROS ROS ED Review of Systems ROS Unobtainable: due to mental status EXAM Physical Exam Const Vital Signs: 05/23/23 10:43 05/23/23 10:43 05/23/23 10:54 Temperature 96.7 F L 96.7 F L Temperature Source Temporal Temporal Pulse Rate 84 84 Respiratory Rate 16 16 Respiratory Effort Normal Blood Pressure 130/92 H 130/92 H Blood Pressure Mean 104 104 Pulse Ox 95 95 Oxygen Delivery Method Room Air Room Air Room Air Positive well nourished and well developed General Appearance ED: well developed and NAD HEENT Reports moist mucous membranes Neck supple and no JVD Resp normal respiratory effort Auscultation: diminished lung sounds diffuse Cardio regular rate and regular rhythm GI non-distended Palpation: soft Neuro CN's II-XII intact bilaterally Sensorium / Orientation: alert Motor Exam: strength 5/5 throughout MDM MDM MDM Narrative Medical decision making narrative: Differential diagnosis includes pneumonia, viral illness, upper respiratory tract infection, and urinary tract infection. Chest x-ray will be obtained to assess for pneumonia and bronchitis. COVID-19, influenza, and RSV PCR will be obtained to assess for viral infection. CBC will be obtained to assess for leukocytosis and anemia. Basic metabolic profile will be obtained to assess for electrolyte abnormality and renal function. Urinalysis will be obtained to assess for urinary tract infection and hematuria. Lab Data Attestation: I reviewed the patient's lab results. Lab results narrative: CBC was reviewed and was within normal limits. Basic metabolic profile was reviewed and was essentially within normal limits. Urinalysis was reviewed. There is no evidence of urinary tract infection or hematuria. COVID-19 PCR was reviewed and was negative. Influenza PCR was reviewed and was negative for influenza A and influenza B. RSV PCR was reviewed and was negative. Labs: Laboratory Results - last 24 hr 05/23/23 05/23/23 11:25 13:20 WBC 8.2 RBC 5.09 Hgb 14.5 Hct 45.2 MCV 88.8 MCH 28.5 MCHC 32.1 RDW Std Deviation 41.3 RDW Coeff of Karen 12.7 Plt Count 113 L MPV 8.9 Immature Gran % (Auto) 0.200 Neut % (Auto) 66.6 Lymph % (Auto) 21.9 [place] % (Auto) 10.3 H Eos % (Auto) 0.6 Baso % (Auto) 0.4 Absolute Neuts (auto) 5.4 Absolute Lymphs (auto) 1.79 Nucleated RBC % 0 Sodium 141 Potassium 3.9 Chloride 109 H Carbon Dioxide 26.0 Anion Gap 6 BUN 15 Creatinine 1.11 H Estim Creat Clear Calc 35.86 Est GFR (MDRD) Af Amer 61 Est GFR (MDRD) Non-Af 51 L BUN/Creatinine Ratio 13.5 Glucose 99 Calcium 9.0 Urine Color Yellow Urine Clarity Clear Urine pH 7.0 Ur Specific [place] 1.010 Urine Protein Negative Urine Glucose (UA) Normal Urine Ketones 5 H Urine Occult Blood 50 H Urine Nitrite Negative Urine Bilirubin Negative Urine Urobilinogen 1 H Ur Leukocyte Esterase Negative Urine RBC 0-5 SEEN Urine WBC 0 SEEN Ur Squamous Epith Cells 0-5 SEEN Urine Bacteria 0 SEEN Urine Mucus 0 SEEN Radiography Diagnostic Testing: Clinical Impression(s) from Imaging Studies Chest X-Ray 05/23/23 11:35 IMPRESSION: Normal x-ray examination of the chest. Electronically Signed: Juan Pablo Boo MD at 12:04 EDT , PA and lateral chest x-ray was obtained. There are 2 views. On my independent interpretation, lung gao are clear. There is normal cardiac silhouette. Bony thorax is normal. There is no acute process noted. Radiologist also interpreted the x-ray and agrees. Treatment and Re-Evaluation :: Patient was given IV fluids. Spouse was advised of the findings. Patient is feeling better on reevaluation. Patient and spouse were instructed to follow-up with patient's primary care physician in 5 to 7 days. Spouse was advised that this is most likely a viral illness. Spouse understood and was agreeable with the plan. All questions were answered. Discharge Plan Triage Chief Complaint: Cough ED Provider: Adolph Garcia Dx/Rx/DC Orders Clinical Impression: Dementia, Viral URI Instructions: ED URI, Viral, No Abx (Adult) Prescriptions: No Action memantine 10 MG tablet 10 mg PO BID Primary Care Provider: Marivel Cox Referrals: Marivel Cox, NICOLA-C [Primary Care Provider] - 5-7 Days Disposition Disposition: Home, Self Care
[2023-05-23] MEDS: 0.9% Normal Saline (1000mL) 1,000 ML 1000 ML IV (11:27)
--- NOTE | 2023-05-23 11:35 | RAD_ITS ---
STUDY: X-RAY CHEST REASON FOR EXAM: Female, 77 years old. Cough TECHNIQUE: AP and lateral views of the chest. COMPARISON: Comparison is made with prior study January 12, 2023. FINDINGS: The lungs are clear and expanded. There is no demonstrated pleural abnormality. Normal size heart. Normal mediastinum and carlos a. Normal visualized pulmonary arteries. There is atherosclerotic tortuosity of the aortic arch and descending thoracic aorta. There are mild degenerative changes of the visualized thoracic spine. Normal visualized ribs, clavicles, and shoulders. There is no demonstrated abnormality of the visualized soft tissue structures of the upper abdomen. RAD/Chest PA and Lateral IMPRESSION: Normal x-ray examination of the chest. Electronically Signed: Juan Pablo Boo MD at 12:04 EDT ,
[2023-05-23 11:36] LABS: Absolute Lymphocyte Count 1.79 X10^3/uL (0.83-4.51); Absolute Neutrophil Count 5.4 X10^3/uL (2.0-7.7); Basophil# 0.03 X10^3/uL; Basophil% 0.4 % (0-1); Eosinophil# 0.05 X10^3/uL; Eosinophils% 0.6 % (0-5); Hematocrit 45.2 % (37-47); Hemoglobin 14.5 g/dL (12.0-15.0); Lymphocyte # 1.79 X10^3/ul (0.83-4.51); Lymphocyte % 21.9 % (19-41); Mean Corp Hgb Conc 32.1 g/dL (32-36); Mean Corpuscular Hgb 28.5 pg (27.0-32.0); Mean Corpuscular Volume 88.8 fL (81-99); Mean Platelet Vol. 8.9 fl (6.2-12.0); Monocyte# 0.84 X10^3/uL; Monocyte% 10.3 % (0-10); NRBC Flagged by Analyzer 0 % (0-5); Neutrophil # 5.43 X10^3/uL (2.7-7.7); Neutrophil % 66.6 % (47-70); Platelet Count 113 K/mm3 (150-450); RBC Distribution Width CV 12.7 % (11.6-14.6); RBC Distribution Width SD 41.3 fl (35.1-43.9); Red Blood Count 5.09 M/mm3 (4.2-5.4); White Blood Count 8.2 K/mm3 (4.4-11.0)
[2023-05-23 11:46] LABS: Anion Gap 6 (5-15); BUN 15 mg/dL (7-18); BUN/Creat Ratio 13.5 RATIO (10-20); Chloride 109 mmol/L (98-107); Creatinine, Serum 1.11 mg/dL (0.55-1.02); EST Glomerular Filtration Rate 51 mL/min (>60); Est Glom Filt Rate - Afr Amer 61 mL/min (>60); Estimated Creatinine Clearance 35.86 ml/min; Glucose 99 mg/dL (74-106); Potassium 3.9 mmol/L (3.5-5.1); Sodium Level 141 mmol/L (136-145)
[2023-05-23 13:33] LABS: Bacteria 0 SEEN /hpf (None Seen); Mucous, Urine 0 SEEN /hpf (<or=2+); White Blood Cells 0 SEEN /hpf (0-5)
[2023-05-23 13:34] LABS: Color, Urine Yellow (Yellow); Glucose, Dipstick Normal (Normal); Ketone-Dipstick 5 mg/dl (Negative); Leukocyte Esterase-Dipstick Negative /ul (Negative); Nitrite-Dipstick Negative (Negative); Occult Blood-Urine 50 /ul (Negative); Protein-Dipstick Negative (Negative); Urine Bilirubin Dipstick Negative (Negative); Urine Clarity Clear (Clear); Urine Urobilinogen 1 mg/dl (Normal)
[2023-05-23 13:41] LABS: Red Blood Cells-Urine 0-5 SEEN /hpf (0-5); Squamous Epithelial Cells - UA 0-5 SEEN /hpf (5-10)
== END 2023-05-23 15:06 | disposition home or self-care (01) ==
PROVIDERS: Emergency Provider Emergency Medicine; PCP Nurse Practitioner Family; Visit Provider Emergency Medicine
DX: J06.9 Acute upper respiratory infection, unspecified (principal); F03.90 Unspecified dementia, unspecified severity, without behavioral disturbance, psychotic disturbance, mood disturbance, and anxiety; Z11.52 Encounter for screening for COVID-19; E78.5 Hyperlipidemia, unspecified; I10 Essential (primary) hypertension
CPT/HCPCS: 71046; 80048; 81001; 85025; 87631; 96360; 96361; 99282; A4216

== ENCOUNTER 2024-01-27 08:49 | Inpatient (IN) | payer MEDICARE, SELFPAY ==
[2024-01-27] VITALS (12 sets, daily range): BP systolic 110–170; BP diastolic 86–118; PULSE 64–97; RESP 16–22; TEMP 36.2–38.1; O2SAT 88–170; BMI 24.3
[2024-01-27 10:14] LABS: Absolute Lymphocyte Count 0.88 X10^3/uL (0.83-4.51); Absolute Neutrophil Count 10.4 X10^3/uL (2.0-7.7); Basophil# 0.04 X10^3/uL; Basophil% 0.3 % (0-1); Eosinophil# 0.06 X10^3/uL; Eosinophils% 0.5 % (0-5); Hematocrit 46.5 % (37-47); Hemoglobin 15.2 g/dL (12.0-15.0); Lymphocyte # 0.88 X10^3/ul (0.83-4.51); Lymphocyte % 7.2 % (19-41); Mean Corp Hgb Conc 32.7 g/dL (32-36); Mean Corpuscular Hgb 29.1 pg (27.0-32.0); Mean Corpuscular Volume 88.9 fL (81-99); Mean Platelet Vol. 8.5 fl (6.2-12.0); Monocyte# 0.71 X10^3/uL; Monocyte% 5.8 % (0-10); NRBC Flagged by Analyzer 0 % (0-5); Neutrophil % 85.8 % (47-70); Platelet Count 112 K/mm3 (150-450); RBC Distribution Width CV 12.8 % (11.6-14.6); RBC Distribution Width SD 41.7 fl (35.1-43.9); Red Blood Count 5.23 M/mm3 (4.2-5.4); White Blood Count 12.1 K/mm3 (4.4-11.0)
[2024-01-27 10:41] LABS: ALB/GLOB Ratio 1.1 RATIO (0.9-2.4); AST(SGOT) 15 U/L (15-37); Alanine Aminotransfer ALT/SGPT 13 U/L (13-56); Albumin, Serum 3.8 g/dL (3.2-5.0); Alkaline Phosphatase 100 U/L (45-117); Anion Gap 8 (5-15); BUN 21 mg/dL (7-18); BUN/Creat Ratio 20.4 RATIO (10-20); Calcium,Total 9.2 mg/dL (8.5-10.1); Chloride 109 mmol/L (98-107); Creatinine, Serum 1.03 mg/dL (0.55-1.02); EST Glomerular Filtration Rate 55 mL/min (>60); Est Glom Filt Rate - Afr Amer 67 mL/min (>60); Estimated Creatinine Clearance 36.06 ml/min; Globulin 3.6 g/dL (2.2-4.2); Glucose 104 mg/dL (74-106); Potassium 4.2 mmol/L (3.5-5.1); Protein, Total 7.4 g/dL (6.4-8.2); Sodium Level 139 mmol/L (136-145); Troponin-I HS 25 pg/mL (3.0-54.0)
[2024-01-27 11:19] LABS: Bacteria 0 SEEN /hpf (None Seen); Mucous, Urine 0 SEEN /hpf (<or=2+); Squamous Epithelial Cells - UA 0 SEEN /hpf (5-10); White Blood Cells 0 SEEN /hpf (0-5)
[2024-01-27 11:20] LABS: Color, Urine Yellow (Yellow); Glucose, Dipstick Normal (Normal); Ketone-Dipstick Negative (Negative); Leukocyte Esterase-Dipstick Negative /ul (Negative); Nitrite-Dipstick Negative (Negative); Occult Blood-Urine 150 /ul (Negative); Protein-Dipstick Negative (Negative); Specific Gravity, Urine 1.015 (1.002-1.030); Urine Bilirubin Dipstick Negative (Negative); Urine Clarity Clear (Clear); Urine Urobilinogen Normal (Normal); Urine pH 6.5 (5.0 - 8.0)
[2024-01-27 11:27] LABS: Red Blood Cells-Urine 0-5 SEEN /hpf (0-5)
[2024-01-27 12:57] LABS: CPK Total, Creatine Kinase 67 U/L (26-192)
[2024-01-27] MEDS: 0.9% Normal Saline (1000mL) 1,000 ML 75 ML IV (13:46)
[2024-01-27 14:08] LABS: Erythrocyte Sedimentation Rate 3 mm/hr (0-30)
[2024-01-27 14:23] LABS: Lactic Acid 0.9 mmol/L (0.4-1.9)
[2024-01-27 14:42] LABS: Procalcitonin 0.06 ng/mL (0.00-0.09)
[2024-01-27 15:03] LABS: CRP < 2.90 mg/L (0.0-3.0)
[2024-01-27] MEDS: Lactated Ringers 1,000 ML 75 ML IV (17:12)
[2024-01-27] MEDS: Acetaminophen 650 MG Suppository RC (21:49)
[2024-01-28 01:16] LABS: M R Staph aureus DNA By PCR Negative (Negative); Probe Check PASS; Specimen Processing Control PASS
[2024-01-28 02:02] VITALS: BP 135/119; PULSE 74; RESP 20; TEMP 37; O2SAT 93
[2024-01-28 07:13] LABS: Basophil# 0.03 X10^3/uL; Basophil% 0.4 % (0-1); Eosinophil# 0.14 X10^3/uL; Eosinophils% 1.6 % (0-5); Hematocrit 40.9 % (37-47); Hemoglobin 13.5 g/dL (12.0-15.0); Lymphocyte % 17.6 % (19-41); Mean Corpuscular Hgb 28.7 pg (27.0-32.0); Mean Platelet Vol. 8.7 fl (6.2-12.0); Monocyte# 0.82 X10^3/uL; Monocyte% 9.6 % (0-10); NRBC Flagged by Analyzer 0 % (0-5); Neutrophil # 5.99 X10^3/uL (2.7-7.7); Neutrophil % 70.4 % (47-70); Platelet Count 117 K/mm3 (150-450); RBC Distribution Width CV 12.7 % (11.6-14.6); RBC Distribution Width SD 39.9 fl (35.1-43.9); White Blood Count 8.5 K/mm3 (4.4-11.0)
[2024-01-28] MEDS: Polyethylene Glycol 3350 17 GM PACKET PO (07:51)
[2024-01-28] MEDS: Senna/Docusate Sodium 1 Tablet 2 TABLET PO ×2 (07:51→22:49)
[2024-01-28] MEDS: Aspirin 81 MG TAB.CHEW PO (07:51)
[2024-01-28] MEDS: Enoxaparin 40 MG/0.4 ML Syringe SC (07:51)
[2024-01-28 07:52] LABS: AST(SGOT) 17 U/L (15-37); Alanine Aminotransfer ALT/SGPT 11 U/L (13-56); Albumin, Serum 3.1 g/dL (3.2-5.0); Alkaline Phosphatase 86 U/L (45-117); Anion Gap 5 (5-15); BUN 14 mg/dL (7-18); BUN/Creat Ratio 16.9 RATIO (10-20); Calcium,Total 8.4 mg/dL (8.5-10.1); Chloride 112 mmol/L (98-107); Creatinine, Serum 0.83 mg/dL (0.55-1.02); EST Glomerular Filtration Rate 71 mL/min (>60); Est Glom Filt Rate - Afr Amer 86 mL/min (>60); Estimated Creatinine Clearance 44.75 ml/min; Globulin 3.2 g/dL (2.2-4.2); Glucose 89 mg/dL (74-106); Magnesium 1.8 mg/dL (1.6-2.6); Phosphorus 2.7 mg/dL (2.5-4.9); Potassium 3.6 mmol/L (3.5-5.1); Protein, Total 6.3 g/dL (6.4-8.2); Sodium Level 142 mmol/L (136-145)
[2024-01-28 08:02] VITALS: O2SAT 99
[2024-01-28] MEDS: Nystatin Powder 15gm Bottle 1 APPLIC TOPICAL ×2 (08:28→22:55)
[2024-01-28] MEDS: Ensure Plus High Protein 120 ML LIQUID PO ×2 (08:29→11:27)
[2024-01-28] MEDS: Menthol/Lanolin/Calamine/Znox 113 GM Tube 1 APPLIC TOPICAL ×2 (08:29→22:54)
[2024-01-28 09:11] VITALS: BP 144/88; PULSE 73; RESP 16; TEMP 36.8; O2SAT 96
[2024-01-28 11:15] VITALS: BP 124/78; PULSE 74; RESP 16; TEMP 36.8; O2SAT 97
[2024-01-28 16:48] VITALS: BP 125/89; PULSE 106; RESP 16; TEMP 36.6; O2SAT 97
[2024-01-28 20:15] VITALS: BP 158/79; PULSE 68; RESP 16; TEMP 37.5; O2SAT 94
[2024-01-28] MEDS: MELATONIN 10 MG TABLET PO (22:48)
[2024-01-28] MEDS: RisperiDONE 0.25 MG Tablet PO (22:52)
[2024-01-29 03:18] VITALS: BP 144/103; PULSE 68; RESP 16; TEMP 36.9; O2SAT 97
[2024-01-29 09:31] VITALS: BP 149/92; PULSE 73; RESP 16; TEMP 36.8; O2SAT 96
[2024-01-29] MEDS: Aspirin 81 MG TAB.CHEW PO (09:44)
[2024-01-29] MEDS: Menthol/Lanolin/Calamine/Znox 113 GM Tube 1 APPLIC TOPICAL (09:45)
[2024-01-29] MEDS: Polyethylene Glycol 3350 17 GM PACKET PO (09:45)
[2024-01-29] MEDS: Senna/Docusate Sodium 1 Tablet 2 TABLET PO (09:45)
[2024-01-29] MEDS: Enoxaparin 40 MG/0.4 ML Syringe SC (09:45)
[2024-01-29] MEDS: Nystatin Powder 15gm Bottle 1 APPLIC TOPICAL (09:45)
[2024-01-29 10:01] VITALS: O2SAT 94
[2024-01-29 12:56] VITALS: BP 127/92; PULSE 68; RESP 16; TEMP 36.4; O2SAT 95
[2024-01-29 15:08] VITALS: BP 101/80; PULSE 69; RESP 16; TEMP 36.4; O2SAT 100
== END 2024-01-29 18:10 | disposition left against medical advice (07) | DRG 865 ==
LOC: ED 15:06 → MS3 16:00
PROVIDERS: Admitting Provider Internal Medicine; Emergency Provider Emergency Medicine; PCP Nurse Practitioner Family; Visit Provider Internal Medicine
DX: B34.8 Other viral infections of unspecified site (principal); G92.8 Other toxic encephalopathy; D69.6 Thrombocytopenia, unspecified; N18.32 Chronic kidney disease, stage 3b; F03.C0 Unspecified dementia, severe, without behavioral disturbance, psychotic disturbance, mood disturbance, and anxiety; I12.9 Hypertensive chronic kidney disease with stage 1 through stage 4 chronic kidney disease, or unspecified chronic kidney disease; E78.5 Hyperlipidemia, unspecified; K59.09 Other constipation; D75.1 Secondary polycythemia; I25.10 Atherosclerotic heart disease of native coronary artery without angina pectoris; R31.29 Other microscopic hematuria; Z79.82 Long term (current) use of aspirin; Z79.899 Other long term (current) drug therapy; Z86.16 Personal history of COVID-19; Z53.29 Procedure and treatment not carried out because of patient's decision for other reasons
CPT/HCPCS: 36415; 70450; 71045; 74177; 80053; 81001; 82550; 83605; 83735; 84100; 84145; 84443; 84484; 85025; 85652; 86140; 87040; 87631; 87633; 87641; 93005; 97162; 97166; 97530; 97802; 99284; J7030; J7120; Q9967; A4216

== ENCOUNTER 2024-07-04 10:34 | Emergency (ER) | payer MEDICARE, SELFPAY ==
[2024-07-04 10:36] VITALS: BP 95/69; PULSE 57; RESP 16; TEMP 36.3; O2SAT 96; BMI 23.8
--- NOTE | 2024-07-04 11:01 | CT_ITS ---
PROCEDURE: BRAIN/HEAD WITHOUT CONTRAST (CTBR), 07/04/2024 REASON FOR EXAM: AMS COMPARISON: 01/27/2024 TECHNIQUE: CT head was performed without IV contrast. Multiplanar reformats were generated. RADIATION DOSE SUMMARY: CTDlvol: 44.99+ 44.99+ 44.99 mGy DLP: 2438.95 mGycm One or more dose reduction techniques were used (e.g., Automated exposure control, adjustment of the mA and/or kV according to patient size, use of iterative reconstruction technique). FINDINGS: Cerebrum: No visible acute hemorrhage, definite acute territorial infarct, or visible mass. Similar [id number] diffuse cerebral volume loss and patchy presumed chronic microvascular ischemic supratentorial white matter changes. Slight upward bowing of the corpus callosum. Cerebellum/brainstem: Unremarkable. Note slight limitation due to beam hardening artifact. Ventricles/extra-axial spaces: Lateral and 3rd ventriculomegaly is perhaps slightly disproportionate to the degree of cerebral volume loss however the appearance is similar to 01/27/2024. Visualized paranasal sinuses/mastoid air cells: Mucous retention cyst or polyp in the LEFT maxillary sinus.. Scalp/calvarium: Unremarkable. Other: Intracranial atherosclerosis.. CT/Brain/Head without Contrast IMPRESSION: 1. No visible acute intracranial findings. If there is persistent concern for a n acute intracranial process, consider MRI. 2. Similar chronic findings including a constellation which may be suggestive o f normal pressure/communicating hydrocephalus given the appropriate clinical context. 3. Additional description as above. Reading Location: [id number]
--- NOTE | 2024-07-04 11:02 | EX.ED.DYSGE1 ---
HPI <ABRAM Reinoso - Last Filed: 07/04/24 13:09> History of Present Illness Chief Complaint: Seizure Narrative Narrative: 79-year-old female with history of Alzheimer's dementia, minimally verbal at baseline presents after possible seizure activity. PFSH <ABRAM Reinoso - Last Filed: 07/04/24 13:09> PFSH Medical History Atherosclerosis of abdominal aorta Hiatal hernia Osteopenia Carotid stenosis CKD stage 3a, GFR 45-59 ml/min Thrombocytopenia COVID-19 Hypertension Kidney stones Non-smoker Hyperlipidemia Dementia Home Medications ?Medication ?Instructions ?Recorded ?Last Taken ?Type memantine 10 mg tablet 10 mg PO BID 07/31/16 05/22/23 History aspirin 81 mg capsule 81 mg PO DAILY 01/27/24 Unknown History cholecalciferol (vitamin D3) 10 10 mcg PO DAILY 01/27/24 Unknown History mcg (400 unit) tablet (Vitamin D3) Allergy/AdvReac Type Severity Reaction Status Date / Time No Known Allergies Allergy Verified 05/23/23 10:46 Surgical History Hx of cholecystectomy History of hysterectomy Social History (Updated 01/27/24 @ 15:[address] Karma Johnson, DO) household members: spouse housing: house other: severe dementia an is non-verbal at baseline Smoking Status: Never smoker alcohol intake: never substance use type: does not use ROS <ABRAM Reinoso - Last Filed: 07/04/24 13:09> ROS ED ROS Narrative Unable to obtain due to nonverbal dementia EXAM <ABRAM Reinoso - Last Filed: 07/04/24 13:09> Physical Exam Narrative Exam Narrative: CONST: Patient sitting in no acute distress and smiles when I look at her. EYES: Normal inspection. ENT: Normal inspection, moist mucous membranes. NECK: Normal inspection. RESP: No respiratory distress, CTAB. CVS: Regular rate and rhythm, no murmur, no gallop. ABD: Soft and nontender, no guarding or rebound, nondistended. SKIN: Color normal, no rash, warm, dry, intact. EXTREMITIES: Normal appearance, no pedal edema. NEURO: Alert, nonverbal (baseline). Spontaneously moving all extremities but does not follow commands. PSYCH: Normal affect. Const Vital Signs: 07/04/24 10:36 07/04/24 12:08 07/04/24 13:00 Temperature 97.4 F L Temperature Source Temporal Pulse Rate 57 L 67 89 Respiratory Rate 16 16 18 Blood Pressure 95/69 107/83 H 102/78 Blood Pressure Mean 77 91 86 Pulse Ox 96 98 98 Oxygen Delivery Method Room Air Room Air 07/04/24 13:05 Temperature 98.3 F Temperature Source Pulse Rate 89 Respiratory Rate 18 Blood Pressure 102/78 Blood Pressure Mean 86 Pulse Ox 98 Oxygen Delivery Method <Dr. Alonso Marin MD - Last Filed: 07/04/24 11:21> Physical Exam Const Vital Signs: 07/04/24 10:36 07/04/24 12:08 07/04/24 13:00 Temperature 97.4 F L Temperature Source Temporal Pulse Rate 57 L 67 89 Respiratory Rate 16 16 18 Blood Pressure 95/69 107/83 H 102/78 Blood Pressure Mean 77 91 86 Pulse Ox 96 98 98 Oxygen Delivery Method Room Air Room Air 07/04/24 13:05 Temperature 98.3 F Temperature Source Pulse Rate 89 Respiratory Rate 18 Blood Pressure 102/78 Blood Pressure Mean 86 Pulse Ox 98 Oxygen Delivery Method MDM <ABRAM Reinoso - Last Filed: 07/04/24 13:09> MDM MDM Narrative Medical decision making narrative: arrived and provided more history. He states his goes to [employer] Sunday through Sunday. She went around 7:30 AM as usual and he got a call that she had tried to sit down on a trash can and fell. There was no head injury. They were concerned maybe she had brief seizure activity. He states patient has no history of seizures and upon his arrival she is acting at her normal baseline. He has no acute concerns. Initially her BP was slightly low at 95/69 but she does not look ill. After IV fluids it is 102/78. Screening blood work and CT brain scan were obtained prior to the arriving. Labs are unremarkable. CT brain shows no acute findings. Patient is acting at her baseline and was able to ambulate and is comfortable taking her home. She was discharged in stable condition. I have personally performed a face to face assessment of the patient and have reviewed the LEI Note. I performed a substantive portion of the visit including all aspects of the following. My leija findings include: History is [79-year-old female history of dementia and she is nonverbal. Brought in by squad today. Possible seizure at home. Patient is unable to give any history. Awaiting family to get more information. Currently not here in the emergency department as of yet.] Exam is [well-appearing 79-year-old female. Vital signs initial blood pressure is 95/69. Pulse ox 96% she is afebrile. She does not look septic or toxic. She is in no distress. She smiles. She is pleasantly confused. H EENT exam pupils are unreactive light. Moist with membranes. No trauma. Neck nontender no lymphadenopathy. Back nontender. Lungs clear to auscultation bilaterally. Heart regular rhythm rate about 60 no murmur. Chest wall ribs nontender. Abdomen soft nontender. Moving all 4 extremities. Nontender. No deformity. No edema. No redness. Normal radial pulse. Neurologically her eyes are open she is awake she does not verbalize or answer any questions. She really did not follow many commands.] Medical Decison Making [79-year-old female unsure of the history as of yet waiting for family for further information. Exam benign.] Other additions or changes: [None] Lab Data Labs: Laboratory Results - last 24 hr 07/04/24 11:13 WBC 9.0 RBC 4.60 Hgb 13.6 Hct 40.1 MCV 87.2 MCH 29.6 MCHC 33.9 RDW Std Deviation 39.8 RDW Coeff of Karen 12.6 Plt Count 142 L MPV 8.9 Immature Gran % (Auto) 1.100 H Neut % (Auto) 70.6 H Lymph % (Auto) 20.0 Dale % (Auto) 6.8 Eos % (Auto) 1.2 Baso % (Auto) 0.3 Absolute Neuts (auto) 6.4 Absolute Lymphs (auto) 1.80 Nucleated RBC % 0 Sodium 140 Potassium 4.3 Chloride 105 Carbon Dioxide 25.9 Anion Gap 9 BUN 21 H Creatinine 1.06 Estim Creat Clear Calc 34.13 L Est GFR (MDRD) Non-Af 54 L BUN/Creatinine Ratio 19.7 Glucose 100 H Calcium 9.2 Radiography Diagnostic Testing: Clinical Impression(s) from Imaging Studies Brain CT 07/04/24 11:01 IMPRESSION: 1. No visible acute intracranial findings. If there is persistent concern for an acute intracranial process, consider MRI. 2. Similar chronic findings including a constellation which may be suggestive of normal pressure/communicating hydrocephalus given the appropriate clinical context. 3. Additional description as above. Reading Location: [id number] <Dr. Alonso Marin MD - Last Filed: 07/04/24 11:21> [facility] Narrative Medical decision making narrative: I have personally performed a face to face assessment of the patient and have reviewed the ELI Note. I performed a substantive portion of the visit including all aspects of the following. My leija findings include: History is [79-year-old female history of dementia and she is nonverbal. Brought in by squad today. Possible seizure at home. Patient is unable to give any history. Awaiting family to get more information. Currently not here in the emergency department as of yet.] Exam is [well-appearing 79-year-old female. Vital signs initial blood pressure is 95/69. Pulse ox 96% she is afebrile. She does not look septic or toxic. She is in no distress. She smiles. She is pleasantly confused. H EENT exam pupils are unreactive light. Moist with membranes. No trauma. Neck nontender no lymphadenopathy. Back nontender. Lungs clear to auscultation bilaterally. Heart regular rhythm rate about 60 no murmur. Chest wall ribs nontender. Abdomen soft nontender. Moving all 4 extremities. Nontender. No deformity. No edema. No redness. Normal radial pulse. Neurologically her eyes are open she is awake she does not verbalize or answer any questions. She really did not follow many commands.] Medical Decison Making [79-year-old female unsure of the history as of yet waiting for family for further information. Exam benign.] Other additions or changes: [None] History & Record Review Discussion w/independent historian: Patient Additional record(s) reviewed:: Prior inpatient record, Prior outpatient record, Prior ED visit and Prior labs Lab Data Attestation: I reviewed the patient's lab results. Labs: Laboratory Results - last 24 hr 07/04/24 11:13 WBC 9.0 RBC 4.60 Hgb 13.6 Hct 40.1 MCV 87.2 MCH 29.6 MCHC 33.9 RDW Std Deviation 39.8 RDW Coeff of Karen 12.6 Plt Count 142 L MPV 8.9 Immature Gran % (Auto) 1.100 H Neut % (Auto) 70.6 H Lymph % (Auto) 20.0 Dale % (Auto) 6.8 Eos % (Auto) 1.2 Baso % (Auto) 0.3 Absolute Neuts (auto) 6.4 Absolute Lymphs (auto) 1.80 Nucleated RBC % 0 Sodium 140 Potassium 4.3 Chloride 105 Carbon Dioxide 25.9 Anion Gap 9 BUN 21 H Creatinine 1.06 Estim Creat Clear Calc 34.13 L Est GFR (MDRD) Non-Af 54 L BUN/Creatinine Ratio 19.7 Glucose 100 H Calcium 9.2 Radiography Diagnostic Testing: Clinical Impression(s) from Imaging Studies Brain CT 07/04/24 11:01 IMPRESSION: 1. No visible acute intracranial findings. If there is persistent concern for an acute intracranial process, consider MRI. 2. Similar chronic findings including a constellation which may be suggestive of normal pressure/communicating hydrocephalus given the appropriate clinical context. 3. Additional description as above. Reading Location: [id number] Discharge Plan Triage Chief Complaint: Seizure ED Midlevel Provider: Eileen Moss ED Provider: Alonso Marin Dx/Rx/DC Orders Clinical Impression: Fall, Advanced dementia Prescriptions: No Action memantine 10 MG tablet 10 mg PO BID cholecalciferol (vitamin D3) [Vitamin D3] 10 mcg (400 unit) tablet 10 mcg PO DAILY aspirin 81 mg capsule 81 mg PO DAILY Primary Care Provider: Marivel Cox Referrals: Marivel Cox, NICOL[facility] [Primary Care Provider] - Activity Restrictions/Additional Instructions: Her blood work looks normal. Continue to monitor and if new or worsening symptoms occur come back for reevaluation. Print Language: Jordanian Disposition Disposition: Home, Self Care Discharge Date/Time: 07/04/24 13:06
[2024-07-04 11:26] LABS: Absolute Neutrophil Count 6.4 X10^3/uL (2.0-7.7); Basophil# 0.03 X10^3/uL; Basophil% 0.3 % (0-1); Eosinophil# 0.11 X10^3/uL; Eosinophils% 1.2 % (0-5); Hematocrit 40.1 % (37-47); Hemoglobin 13.6 g/dL (12.0-15.0); Mean Corp Hgb Conc 33.9 g/dL (32-36); Mean Corpuscular Hgb 29.6 pg (27.0-32.0); Mean Corpuscular Volume 87.2 fL (81-99); Mean Platelet Vol. 8.9 fl (6.2-12.0); Monocyte# 0.61 X10^3/uL; Monocyte% 6.8 % (0-10); NRBC Flagged by Analyzer 0 % (0-5); Neutrophil # 6.35 X10^3/uL (2.7-7.7); Neutrophil % 70.6 % (47-70); Platelet Count 142 K/mm3 (150-450); RBC Distribution Width CV 12.6 % (11.6-14.6); RBC Distribution Width SD 39.8 fl (35.1-43.9)
[2024-07-04] MEDS: 0.9% Normal Saline (1000mL) 1,000 ML 999 ML IV (11:42)
--- NOTE | 2024-07-04 11:44 | ED.RN ---
iv started by squad, no blood drawn. 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
[2024-07-04 11:46] LABS: Anion Gap 9 (5-15); BUN 21 mg/dL (4-19); BUN/Creat Ratio 19.7 RATIO (10-20); Calcium,Total 9.2 mg/dL (7.6-11.0); Carbon Dioxide 25.9 mmol/L (21.0-32.0); Chloride 105 mmol/L (98-108); Creatinine, Serum 1.06 mg/dL (0.70-1.20); EST Glomerular Filtration Rate 54 (>60); Estimated Creatinine Clearance 34.13 ml/min (50-250); Glucose 100 mg/dL (70-99); Potassium 4.3 mmol/L (3.3-5.1); Sodium Level 140 mmol/L (133-145)
[2024-07-04 12:08] VITALS: BP 107/83; PULSE 67; RESP 16; O2SAT 98
--- NOTE | 2024-07-04 12:08 | ED.RN ---
CONFUSION AND NON-VERBAL IS BASELINE FOR PT WITH DEMENTIA
[2024-07-04 13:00] VITALS: BP 102/78; PULSE 89; RESP 18; O2SAT 98
[2024-07-04 13:05] VITALS: BP 102/78; PULSE 89; RESP 18; TEMP 36.8; O2SAT 98
== END 2024-07-04 13:06 | disposition home or self-care (01) ==
PROVIDERS: Physician Assistant; Emergency Provider Emergency Medicine; PCP Nurse Practitioner Family; Visit Provider Emergency Medicine
DX: Z04.3 Encounter for examination and observation following other accident (principal); G30.9 Alzheimer's disease, unspecified; F02.80 Dementia in other diseases classified elsewhere, unspecified severity, without behavioral disturbance, psychotic disturbance, mood disturbance, and anxiety; N18.31 Chronic kidney disease, stage 3a; W17.89XA Other fall from one level to another, initial encounter; Y92.210 Daycare center as the place of occurrence of the external cause; I95.9 Hypotension, unspecified; I12.9 Hypertensive chronic kidney disease with stage 1 through stage 4 chronic kidney disease, or unspecified chronic kidney disease; E78.5 Hyperlipidemia, unspecified; Z79.82 Long term (current) use of aspirin; Z79.899 Other long term (current) drug therapy
CPT/HCPCS: 70450; 80048; 85025; 96360; 99285; A4216

== ENCOUNTER 2025-03-01 16:52 | Emergency (ER) | payer MEDICARE, SELFPAY ==
[2025-03-01 16:53] VITALS: BP 138/94; PULSE 104; RESP 18; TEMP 36.7; O2SAT 100
--- NOTE | 2025-03-01 17:10 | ED.VIS.FALL ---
HPI HPI - Fall History of Present Illness Chief Complaint: Fall Informant: spouse/S.O. Limited: dementia Occured/Mechanism Occurred: Today Mechanism/Context: Yes same level fall Usually ambulates: Without assistance Pain/Injury Location: Right periorbital area and right wrist Pain Location: head, face and upper extremity Worsened by: Nothing Relieved by: Nothing Associated Symptoms Associated Symptoms: Negative for Parasthesias, Weakness, Loss of function, Inability to ambulate or Loss of consciousness Narrative Narrative: Patient presents after a fall that occurred today. states that he did not witness the fall but found her laying on the floor. states patient hit the right side of her head and right wrist. states patient is acting normally. states that he helped her up and she was able to ambulate after the fall. denies any loss of consciousness. is unsure of her last tetanus. noted some swelling to the right side of her face. Tetanus Immunization: Unknown PFSH PFS Medical History Rhinovirus infection Toxic metabolic encephalopathy Constipation Erythrocytosis Microscopic hematuria Leukocytosis Fever Atherosclerosis of abdominal aorta Hiatal hernia Osteopenia Carotid stenosis CKD stage 3a, GFR 45-59 ml/min Thrombocytopenia COVID-19 Hypertension Kidney stones Non-smoker Hyperlipidemia Dementia Home Medications ?Medication ?Instructions ?Recorded ?Last Taken ?Type memantine 10 mg tablet 10 mg PO BID 07/31/16 05/22/23 History aspirin 81 mg capsule 81 mg PO DAILY 01/27/24 Unknown History cholecalciferol (vitamin D3) 10 10 mcg PO DAILY 01/27/24 Unknown History mcg (400 unit) tablet (Vitamin D3) Allergy/AdvReac Type Severity Reaction Status Date / Time No Known Allergies Allergy Verified 03/01/25 16:53 Surgical History Hx of cholecystectomy History of hysterectomy Social History household members: spouse housing: house other: severe dementia an is non-verbal at baseline Smoking Status: Never smoker alcohol intake: never substance use type: does not use ROS ROS ED Review of Systems ROS Unobtainable: due to mental status Respiratory/Chest Respiratory/Chest: Denies cough or dyspnea Gastrointestinal Gastrointestinal: Denies nausea or vomiting EXAM Physical Exam Const Vital Signs: 03/01/25 16:53 03/01/25 17:52 03/01/25 18:00 Temperature 98.1 F Temperature Source Temporal Pulse Rate 104 H 89 84 Respiratory Rate 18 20 H 20 H Blood Pressure 138/94 H Blood Pressure Mean 108 Pulse Ox 100 99 100 Oxygen Delivery Method Room Air Room Air Positive well nourished and well developed General Appearance ED: well developed and NAD HEENT Reports normocephalic HEENT Narrative: There is a 2 cm full-thickness linear laceration above the right eyebrow. There is mild gapping of the wound margins. There is no foreign body noted. There is no bony crepitance or step-off. There is mild bleeding noted. There is edema and ecchymosis of the right zygomatic area and infraorbital area. Eyes PERRL and EOMs intact bilaterally Neck full ROM and supple Neuro CN's II-XII intact bilaterally, moves all extremities, no focal motor deficits and no sensory deficits noted Sensorium / Orientation: alert and orientation impaired Motor Exam: strength 5/5 throughout MDM MDM MDM Narrative Medical decision making narrative: Differential diagnosis includes closed head injury, orbital fracture, contusion, and laceration. CT scan of the orbits will be obtained to assess for orbital fracture. Radiography Diagnostic Testing: Clinical Impression(s) from Imaging Studies CT Orbit Sella Inner 03/01/25 17:27 IMPRESSION: Right periorbital soft tissue hematoma. No acute fractures. Intact bilateral globes. Reading Location: [id number] CT scan of the orbits was obtained. There is a periorbital hematoma. There is no acute fracture. This was interpreted by the radiologist. I also independently reviewed the images and did not see any fracture. Treatment and Re-Evaluation Narrative: The wound was cleaned with chlorhexidine. The wound was closed with Dermabond skin adhesive. Patient tolerated the procedure well. Patient was instructed to keep the wound clean and dry. Patient was instructed to follow-up with her primary care physician in 7 to 10 days. was also given head injury instructions. was instructed to use ice to the right periorbital area. understood and was agreeable with plan. All questions were answered. Discharge Plan Triage Chief Complaint: Fall ED Provider: Adolph Garcia Dx/Rx/DC Orders Clinical Impression: Laceration of right eyebrow, Fall, Head injury, Periorbital hematoma of right eye Instructions: ED Head Injury (Adult), ED Hematoma, ED Laceration, Face: Skin Glue Prescriptions: No Action memantine 10 MG tablet 10 mg PO BID cholecalciferol (vitamin D3) [Vitamin D3] 10 mcg (400 unit) tablet 10 mcg PO DAILY aspirin 81 mg capsule 81 mg PO DAILY Primary Care Provider: Marivel Cox Referrals: Marivel Cox, [facility] [Primary Care Provider, Internal Medicine] - 5-7 Days Print Language: Uzbek Disposition Disposition: Home, Self Care
--- NOTE | 2025-03-01 17:27 | CT_ITS ---
PROCEDURE: ORB SELLA POST FOSSA EAR W/O 03/01/2025 REASON FOR EXAM: TRAUMA TECHNIQUE: Procedure Code: CTORB Modality: CT Procedure: ORB SELLA POST FOSSA EAR W/O One or more dose reduction techniques were used (e.g., Automated exposure control, adjustment of the mA and/or kV according to patient size, use of iterative reconstruction technique). RADIATION DOSE SUMMARY: DLP: 576.84 mGycm FINDINGS: Globes: Intact. Extraocular Muscles: Unremarkable. Bones and soft tissue: No fractures. There is a right periorbital soft tissue hematoma. The sinuses are clear. There are no acute intracranial abnormalities. CT/Orb Sella Post Fossa Ear w/o IMPRESSION: Right periorbital soft tissue hematoma. No acute fractures. Intact bilateral globes. Reading Location: [id number]
--- OUTSIDE RECORDS SUMMARY | 2025-03-01 17:36 | XMS RPT_ITS | CCD ---
Author Organization [facility] Care Team Providers Care Steel Erector Name Role Phone Mary Bethea Unavailable Refugio Moreno Unavailable Aldo Marin Unavailable Hitesh Robles Unavailable Dami Castillo Unavailable Slarb, Sherrill Unavailable Unavailable Cindy Vaughn Unavailable Unavailable Unavailable Unavailable Mary Bethea Unavailable Refugio Moreno Unavailable Aldo Marin Unavailable Hitesh Robles Unavailable Dami Castillo Unavailable Slarb, Sherrill Unavailable Unavailable Nikole Haile Unavailable Unavailable Cindy Vaughn Unavailable Unavailable Unavailable Unavailable Refugio Moreno Unavailable Alonso Mcelroy Unavailable Unavailable Unavailable Unavailable abiel Shultz Unavailable Aldo Marin Unavailable Alonso East Unavailable Unavailable Mary Bethea CNP Unavailable abiel Shultz Jr Unavailable Dr. Aldo Marin MD Unavailable Dr. Hitesh Robles Unavailable Dami Castillo Unavailable Slarb POST ACUTE CARE NURSE PRACTITIONER, Sherrill Unavailable Unavailable Alonso East LPN Unavailable Unavailable Cindy Vaughn Unavailable Unavailable Unavailable Unavailable Unavailable Unavailable Linda Pappas MA Unavailable Unavailable Mary Bethea Unavailable Mary Bethea Unavailable Kenny YATES Marivel Unavailable [phone] Kenny MILAN Marivel Unavailable [phone] Mary Bethea Unavailable Sarah Jamie Unavailable Yaritza Newberry MA Unavailable Unavailable NEYMAR Cox Primary Care Provider [phone] Dr. Ruddy Cabezas Attending Provider [phone] Marivel Cox CNP Attending Unavailable SylvesterMary velez Referring Unavailable Marivel Cox CNP Consulting Unavailable Joaquin Larose Attending Unavailable Karma Johnson Admitting Unavailable Karma Johnson Consulting Unavailable Marivel Cox Primary Care Unavailable Deisi Hart Consulting Unavailable Richie, Helen Consulting Unavailable Salena Brandt Consulting Unavailable Korina aLm Consulting Unavailable Evita Escobar Consulting Unavailable Mae, Kisha Consulting Unavailable Joaquin Larose Consulting Unavailable Alonso Marin Attending Unavailable Marivel Cox Primary Care Unavailable Joaquin Larose Attending Unavailable Karma Johnson Admitting Unavailable Karma Johnson Consulting Unavailable Marivel Cox Primary Care Unavailable Deisi Hart Consulting Unavailable Richie, Helen Consulting Unavailable Cherrie Brandtnifer Consulting Unavailable Carole, Korina Consulting Unavailable Shawn, Evita Consulting Unavailable Mae, Kisha Consulting Unavailable Karma Johnson Attending Unavailable Marivel Cox Primary Care Unavailable Allergies Allergy Classification Reported Allergen(s) Allergy Type Date of Onset Reaction(s) Facility HMG-CoA Reductase Inhibitors (statins) (3 sources) Simvastatin; Translations: [SIMVASTATIN (Powder)] Drug Allergy [facility]; [facility] Work Phone: (20 sources) simvastatin; Translations: [SIMVASTATIN (Powder)] Drug Allergy [facility] Work Phone: Comment on above: vomiting (1 source) Allergy to drug (finding) [facility]; [facility] Work Phone: (1 source) Allergy to drug (finding) [facility]; [facility] Work Phone: (1 source) Allergy to drug (finding) [facility]; [facility] Work Phone: (1 source) Allergy to drug (finding) [facility]; [facility] Work Phone: (1 source) Allergy to drug (finding) [facility]; [facility] Work Phone: (1 source) Allergy to drug (finding) [facility]; [facility] Work Phone: (1 source) Allergy to drug (finding) [facility]; [facility] Work Phone: (1 source) Allergy to drug (finding) [facility]; [facility] Work Phone: (1 source) Allergy to drug (finding) [facility]; [facility] Work Phone: (1 source) Allergy to drug (finding) [facility]; [facility] Work Phone: (1 source) Allergy to drug (finding) [facility]; [facility] Work Phone: NEGATED: Highlighted row has been ruled out!Unclassified (1 source) Allergy to drug (finding) 4 [facility]; [facility] Work Phone: NEGATED: Highlighted row has been ruled out!Unclassified (1 source) Allergy to drug (finding) 4 [facility]; [facility] Work Phone: NEGATED: Highlighted row has been ruled out!Unclassified (1 source) Allergy to drug (finding) 4 [facility]; [facility] Work Phone: NEGATED: Highlighted row has been ruled out! (1 source) drug allergy 4 [facility] Work Phone: NEGATED: Highlighted row has been ruled out! (1 source) drug allergy 4 [facility] Work Phone: NEGATED: Highlighted row has been ruled out! (1 source) drug allergy 4 [facility] Work Phone: NEGATED: Highlighted row has been ruled out! (1 source) drug allergy 4 [facility] Work Phone: NEGATED: Highlighted row has been ruled out! (1 source) Allergy to drug (finding) 4 [facility]; [facility] Work Phone: NEGATED: Highlighted row has been ruled out! (1 source) Allergy to drug (finding) 4 [facility]; [facility] Work Phone: NEGATED: Highlighted row has been ruled out! (1 source) Allergy to drug (finding) 4 [facility]; [facility] Work Phone: NEGATED: Highlighted row has been ruled out! (1 source) Allergy to drug (finding) 4 [facility]; [facility] Work Phone: NEGATED: Highlighted row has been ruled out! (1 source) Allergy to drug (finding) [facility]; [facility] Work Phone: NEGATED: Highlighted row has been ruled out! (1 source) Allergy to drug (finding) 4 [facility]; [facility] Work Phone: NEGATED: Highlighted row has been ruled out! (1 source) Allergy to drug (finding) [facility]; [facility] Work Phone: NEGATED: Highlighted row has been ruled out! (1 source) Allergy to drug (finding) [facility]; [facility] Work Phone: NEGATED: Highlighted row has been ruled out! (1 source) Allergy to drug (finding) 4 [facility]; [facility] Work Phone: NEGATED: Highlighted row has been ruled out! (1 source) Allergy to drug (finding) 4 [facility]; [facility] Work Phone: NEGATED: Highlighted row has been ruled out! (1 source) Allergy to drug (finding) 4 [facility]; [facility] Work Phone: NEGATED: Highlighted row has been ruled out! (1 source) Allergy to drug (finding) 4 [facility]; [facility] Work Phone: NEGATED: Highlighted row has been ruled out! (1 source) Allergy to drug (finding) 4 [facility]; [facility] Work Phone: NEGATED: Highlighted row has been ruled out! (1 source) Allergy to drug (finding) 4 [facility]; [facility] Work Phone: NEGATED: Highlighted row has been ruled out! (1 source) Allergy to drug (finding) 4 [facility]; [facility] Work Phone: NEGATED: Highlighted row has been ruled out! (1 source) Allergy to drug (finding) [facility]; [facility] Work Phone: NEGATED: Highlighted row has been ruled out! (1 source) Allergy to drug (finding) [facility]; [facility] Work Phone: NEGATED: Highlighted row has been ruled out! (1 source) Allergy to drug (finding) [facility]; [facility] Work Phone: NEGATED: Highlighted row has been ruled out! (1 source) Allergy to drug (finding) 4 [facility]; [facility] Work Phone: NEGATED: Highlighted row has been ruled out! (1 source) Allergy to drug (finding) [facility]; [facility] Work Phone: NEGATED: Highlighted row has been ruled out! (1 source) Allergy to drug (finding) [facility]; [facility] Work Phone: NEGATED: Highlighted row has been ruled out! (1 source) Allergy to drug (finding) 01-08-201 4 [facility]; [facility] Work Phone: Medications Current Medications Medication Drug Class(es) Dates Sig (Normalized) Sig (Original) memantine hydrochloride 10 mg oral tablet (20 sources) [id number]-qfwpoc-C-aspart ate Receptor Antagonist Start: 07-31-2016 take 10 mg by mouth twice daily Memantine Active 10 MG PO TWICE A DAY July 31, 2016 12:00am Comment on above: Mail order. raNITIdine 150 mg oral tablet (1 source) Histamine-2 Receptor Antagonist Start: 07-31-2016 Ranitidine (Zantac) 150 MG tablet Active 75 MG PO DAILY July 31, 2016 12:00am Completed/Discontinued Medications Medication Drug Class(es) Dates Sig (Normalized) Sig (Original) amoxicillin 875 mg oral tablet (20 sources) Penicillin-class Antibacterial Start: 04-29-2015 End: 03-15-2016 amoxicillin 875 mg / clavulanate 125 mg oral tablet (20 sources) Penicillin-class Antibacterial Start: 11-06-2014 End: 11-16-2014 Start: 11-06-2014 End: 11-16-2014 AUGMENTIN, 875-125MG (Oral T ablet) 1 (one) Tablet bid for 10days for 10 days Quantity: 20 {Tablet} Refills: 0 Ordered: 06-Nov-2014 Che Olivarez DO Start : 06-Nov-2014 End : 16-Nov-2014 Inactive aspirin 81 mg delayed release oral tablet (20 sources) Nonsteroidal Anti-inflammatory Drug Start: 2020 Start: 04-12-2016 End: 11-27-2016 azithromycin 250 mg oral tab let (20 sources) Macrolide Antimicrobial Start: 09-23-2008 End: 11-27-2008 Start: 02-05-2008 End: 06-09-2008 Start: 02-05-2008 End: 06-09-2008 ZITHROMAX Z-FRANCISCO J, 250MG (Oral Tablet) 1 Tablet tad for 0 days Quantity: 1 {Package(s)} Refills: 0 Ordered: 05-Feb-2008 Julissa Rodríguez Start : 05-Feb-2008 End : 09-Jun-2008 Inactive Comment on above: 1 francisco j as directed benzonatate 100 mg oral capsule (20 sources) Non-narcotic Antitussive Start: 10-21-19 14 End: 02-13-20 15 bifidobacterium infantis 4 mg oral capsule (20 sources) Start: 05-28-19 14 End: 02-13-20 15 celecoxib 200 mg oral capsule (20 sources) Nonsteroidal Anti-inflammatory Drug Start: 10-05-19 10 cephalexin 50 mg/ml oral suspension (3 sources) Cephalosporin Antibacterial Start: 11-16-19 End: 05-23-19 24 take 500 mg by mouth three times daily Cephalexin Discontinued 500 MG PO THREE TIMES A DAY 210 7 November 15, 2021 12:00am May 23, 2023 10:57am cholecalciferol 0.05 mg oral capsule (20 sources) Vitamin D Start: 05-14-19 19 Start: 05-13-2018 take 2 capsules by m outh once daily Vitamin D 2000 UNIT Oral Capsule 2 (two) Capsule daily for 0 days Quantity: 30 {Capsule} Refills: 0 Ordered: 13-May-2018 Juanis ROBERSON Che Start : 13-May-2018 Active Start: 04-11-2017 take 1 capsule by mo [facility] once daily Vitamin D 2000 UNIT Oral Capsule 1 (one) Capsule Capsule daily for 0 days Quantity: 30 {Capsule} Refills: 0 Ordered: 12-Jun-2017 Neema YATES, Denise Neema YATES, Denise Start : 11-Apr-2017 Active End: 03-15-2016 End: 03-15-2016 take 1 capsule by mouth once daily VITAMIN D3, 2000UNIT (Oral Capsule) 1 cap qd (2000 UNIT) End : 15-Mar-2016 Discontinued ciprofloxacin 500 mg oral ta blet (20 sources) Quinolone Antimicrobial Start: 03-15-2016 End: 03-22-2016 codeine phosphate 2 mg/ml / guaiFENesin 20 mg/ml / pseudoephedrine hydrochloride 6 mg/ml oral solution (20 sources) alpha-Adrenergic Agonist, Opioid Agonist Start: 05-27-2013 End: 11-06-2014 Start: 05-27-2013 End: 11-06-2014 CHERATUSSIN DAC, 30-10-100MG /5ML (Oral Solution) 1 (one) Teaspoon Teaspoon q6-8hrs prn for 0 days Quantity: 6 {Ounce} Refills: 0 Ordered: 06-Nov-2014 Nikole Haile RN Start : 27-May-2013 End : 06-Nov-2014 Inactive cyclobenzaprine hydrochlorid e 10 mg oral tablet (20 sources) Muscle Relaxant Start: 10-04-2009 desoximetasone 2.5 mg/ml top ical cream (20 sources) Corticosteroid Start: 06-09-2008 End: 11-27-2008 Start: 06-09-2008 End: 11-27-2008 TOPICORT, 0.25% (External Cr eam) 1 Cream bid for 0 days Quantity: 1 {Cream} Refills: 0 Ordered: 09-Jun-2008 ROSSI Gustafson LPN Start : 09-Jun-2008 End : 27-Nov-2008 Inactive diazePAM 2 mg oral tablet (20 sources) Benzodiazepine Start: 08-02-2016 End: 11-27-2016 take 1 tablet by mouth once at bedtime as needed Valium 2 MG Oral Tablet 1 (one) Tablet q hs prn for 0 days Quantity: 5 {Tablet} Refills: 0 Ordered: 27-Nov-2016 Sherrill Payton LPN Start : 02-Aug-2016 End : 27-Nov-2016 Discontinued Comments: #5 from ER Start: 07-31-2016 End: 05-23-2023 take 2 mg by mouth at bedtime as needed Diazepam Discontinued 2 MG PO AT BEDTIME NEEDED July 31, 2016 7:20pm May 23, 2023 10:57am Comment on above: #5 from ER esomeprazole 40 mg delayed r elease oral capsule (20 sources) Proton Pump Inhibitor Start: 03-24-2009 estradiol 0.025 mg vaginal i nsert (20 sources) Estrogen Start: 03-24-2009 Start: 03-24-2009 VAGIFEM, 25MCG (Vaginal Tablet) 1 (one) Tablet vaginally daily for 2 weeks then 2 x a week for 0 days Refills: 2 Ordered: 04-Oct-2009 Aide Betts Start : 24-Mar-2009 Inactive famotidine 10 mg oral tablet (20 sources) Histamine-2 Receptor Antagonist Start: 08-02-2016 Start: 07-07-2008 End: 11-27-2008 fluticasone propionate 0.05 mg/actuat metered dose nasal spray (20 sources) Corticosteroid Start: 11-26-2012 End: 11-26-2012 Start: 11-26-2012 End: 11-26-2012 FLONASE, 50MCG/ACT (Nasal Jon spension) 2 (two) Puff(s) daily for 0 days Quantity: 3 {Suspension} Refills: 0 Ordered: 26-Nov-2012 Fast Nidhi ROBERSON Start : 26-Nov-2012 End : 26-Nov-2012 Discontinued ketorolac tromethamine 10 mg oral tablet (20 sources) Nonsteroidal Anti-inflammatory Drug, Cyclooxygenase Inhibitor Start: 07-03-2011 End: 07-05-2011 lactobacillus rhamnosus gg [id number] unt oral capsule (20 sources) Start: 11-26-2009 End: 12-06-2009 Start: 11-26-2009 End: 12-06-2009 take 1 capsule by mouth twice daily CULTURELLE, 10B CELL (Oral Capsule) 1 (one) Capsule bid for 10 days Quantity: 20 {Capsule} Refills: 0 Ordered: 26-Nov-2009 Nidhi Neal DO Start : 26-Nov-2009 End : 06-Dec-2009 Inactive lactulose 667 mg/ml oral carmen ution (20 sources) Osmotic Laxative Start: 07-04-2011 End: 07-11-2011 Start: 07-04-2011 End: 07-11-2011 take 15-30 mL by mouth once daily LACTULOSE, 20GM/30ML (Oral Solution) uad Solution 15-30 ml qd for 7 days Refills: 0 Ordered: 04-Jul-2011 Mary Bethea CNP, CNP Denise Start : 04-Jul-2011 End : 11-Jul-2011 Inactive levoFLOXacin 500 mg oral tab let (20 sources) Quinolone Antimicrobial Start: 11-26-2009 End: 12-06-2009 lidocaine 0.05 mg/mg medicat ed patch (20 sources) Antiarrhythmic, Amide Local Anesthetic Start: 10-04-2009 Start: 10-04-2009 LIDODERM, 5% ( External Patch) 1 Patch on 12 hrs off 12 hrs for 0 days Quantity: 6 {Patch} Refills: 0 Ordered: 20-Oct-2009 Esther Pennington LPN Start : 04-Oct-2009 Inactive lisinopril 10 mg oral tablet (8 sources) Angiotensin Converting Enzyme Inhibitor Start: 05-08-2022 End: 05-23-2023 take 10 mg by mouth once daily Lisinopril Discontinued 10 MG PO DAILY June 04, 2022 12:00am May 23, 2023 10:57am loratadine 10 mg oral tablet (20 sources) Start: 10-20-2013 End: 02-12-2015 losartan potassium 25 mg oral tablet (20 sources) Angiotensin 2 Receptor Norma Start: 10-22-2012 End: 11-21-2012 Comment on above: enough till apt meclizine hydrochloride 12.5 mg oral tablet (20 sources) Antiemetic Start: 11-26-2012 End: 11-26-2012 meloxicam 15 mg oral tablet (20 sources) Nonsteroidal Anti-inflammatory Drug Start: 11-26-2012 End: 11-26-2012 metroNIDAZOLE 500 mg oral tablet (20 sources) Nitroimidazole Antimicrobial Start: 11-06-2014 End: 02-12-2015 mometasone furoate 0.05 mg/actuat metered dose nasal spray (20 sources) Corticosteroid Start: 10-20-2013 End: 02-12-2015 Start: 10-20-2013 End: 02-12-2015 take 2 puff(s) by inhalation once daily NASONEX, 50MCG/ACT (Nasal Suspension) 2 (two) Puff Puff daily for 0 days Quantity: 1 {Inhaler} Refills: 0 Ordered: 12-Feb-2015 Salena Barone Start : 20-Oct-2013 End : 12-Feb-2015 Discontinued Start: 10-20-2013 End: 02-12-2015 NASONEX, 50MCG/ACT (Nasal Suspension) 2 (two) Puff Puff daily for 0 days Quantity: 1 {Inhaler} Refills: 0 Ordered: 12-Feb-2015 Salena Barone Start : 20-Oct-2013 End : 12-Feb-2015 Discontinued multivitamin (20 sources) End: 03-15-2016 End: 03-15-2016 Multivitamin Oral Liquid for 0 days Refills: 0 Ordered: 15-Mar-2016 Sherrill Payton LPN End : 15-Mar-2016 Discontinued Multivitamin Oral Liquid (14 sources) End: 03-15-2016 Multivitamin Oral Liquid for 0 days Refills: 0 Ordered: 15-Mar-2016 Sherrill Payton LPN End : 15-Mar-2016 Discontinued naproxen 500 mg oral tablet (20 sources) Nonsteroidal Anti-inflammatory Drug Start: 11-26-2012 End: 11-26-2012 Comment on above: Take with food Nirmatrelvir-Ritonavir (Paxlovid) 300 mg (150 mg x 2)-100 mg tablets,dose pack (1 source) Start: 01-12-2023 End: 05-23-2023 Nirmatrelvir-Ritonavi r (Paxlovid) 300 mg (150 mg x 2)-100 mg tablets,dose pack Discontinued 0 PO .COMPLEX January 12, 2023 1:00am May 23, 2023 10:57am take TWO 150 mg tablets of nirmatrelvir with ONE 100 mg tablet of ritonavir twice daily for 5 days. Crush pills and mix with soft food. omeprazole 20 mg delayed release oral tablet (20 sources) Proton Pump Inhibitor Start: 11-26-2012 End: 08-02-2016 Comment on above: not covered by insur anc polyethylene glycol [id number] mg powder for oral solution (20 sources) Osmotic Laxative Start: 04-12-2016 End: 04-05-2021 Start: 04-12-2016 pravastatin sodium 80 mg ora l tablet (20 sources) HMG-CoA Reductase Inhibitor Start: 12-28-2021 End: 03-17-2022 Start: 2020 take 1 tablet by faith th once at bedtime Pravastatin Sodium 80 MG Oral Tablet 1 (one) Tablet q hs for 90 days Quantity: 90 {Tablet} Refills: 3 Ordered: 25-May-2020 Alonso East LPN Start : 25-May-2020 Active Comments: Mail order. Start: 06-06-2019 take 1 tablet by faith th once at bedtime Pravastatin Sodium 80 MG Oral Tablet 1 (one) Tablet q hs for 90 days Quantity: 90 {Tablet} Refills: 3 Ordered: 06-Jun-2019 Mary Bethea CNP, CNP, Mary E Start : 06-Jun-2019 Active Start: 05-24-2018 take 1 tablet by faith th once at bedtime Pravachol 80 MG Oral Tablet 1 (one) Tablet q hs for 90 days Quantity: 90 {Tablet} Refills: 3 Ordered: 24-May-2018 Mary Bethea CNP, CNP, Mary E Start : 24-May-2018 Active Start: 04-18-2017 take 1 tablet by faith th once at bedtime Pravachol 80 MG Oral Tablet 1 (one) Tablet q hs for 90 days Quantity: 90 {Tablet} Refills: 3 Ordered: 18-Apr-2017 Mary Bethea CNP, CNP, Mary E Start : 18-Apr-2017 Active Start: 07-31-2016 Comment on above: Mail order. predniSONE 10 mg oral tablet (20 sources) Corticosteroid Start: 9 End: 9 quinapril 10 mg oral tablet (20 sources) Angiotensin Converting Enzyme Inhibitor Start: 7 End: 4 take 1 tablet by mouth once daily Quinapril Hcl (Accupril) 10 MG tablet Discontinued 10 MG PO DAILY July 31, 2016 12:00am May 23, 2023 10:57am Start: 11-26-2012 End: 11-26-2012 Comment on above: Mail order. rosuvastatin calcium 10 mg o ral tablet (20 sources) HMG-CoA Reductase Inhibitor Start: 03-27-2012 End: 03-27-2012 simvastatin 40 mg oral table t (20 sources) HMG-CoA Reductase Inhibitor Start: 12-19-2006 End: 12-21-2006 sulfamethoxazole 800 mg / trimethoprim 160 mg oral tablet (20 sources) Dihydrofolate Reductase Inhibitor Antibacterial, Sulfonamide Antimicrobial Start: 07-07-2011 End: 07-14-2011 Start: 07-07-2011 End: 07-14-2011 take 1 tablet by mouth twice daily BACTRIM DS, 800-160MG (Oral Tablet) 1 Tablet bid for 7 days Quantity: 14 Refills: 0 Ordered: 07-Jul-2011 Mary Bethea CNP, CNP, Mary E Start : 07-Jul-2011 End : 14-Jul-2011 Inactive Problems Active Problems Problem Classification Problem Date Documented Date Episodic/Chronic Abdominal pain (20 sources) Abdominal pain; Translations: [Right sided abdominal pain] Resolved: 7 04-06-2017 Episodic Comment on above: suspect diverticular flare? Allergic reactions (20 sources) Contact dermatitis due to poison celeste; Translations: [Contact dermatitis due to poison celeste] Resolved: 9 11-27-2016 Episodic Calculus of urinary tract (20 sources) Calculus of kidney; Translations: [Calculus, kidney] Resolved: 7 11-27-2016 Episodic Comment on above: left with mild hydro Chronic kidney disease (20 sources) Chronic kidney disease stage 3; Translations: [Chronic kidney disease, stage 3] 01-31-2022 Chronic Coagulation and hemorrhagic disorders (20 sources) Platelet count below reference range; Translations: [Platelets decreased] 12-24-2020 Chronic Conditions associated with dizziness or vertigo (20 sources) Dizziness; Translations: [Dizziness and giddiness] Resolved: 3 12-18-2017 Episodic Comment on above: pos stiven iverson on l eft, will reevaluate in aweek if still present and repeat neuro will get CT Conditions associated with dizziness or vertigo (20 sources) Conditions associated with dizziness or vertigo Delirium dementia and amnestic and other cognitive disorders (20 sources) Alzheimer's disease; Translations: [Alzheimer's dementia] 09-06-2018 Chronic Comment on above: per [facility] note stay on cholesterol med, asa, acupril per [facility] note stay on cholesterol med, asa, acupril, Unable to write name now, helpful per [facility] note stay on cholesterol med, asa, acupril, Unable to write name now, helpfulMini mental 01-23-2020 Diseases of white blood cells (1 source) Elevated white blood cell count, unspecified; Translations: [Elevated white blood cell count, unspecified] Onset: 4 Chronic Disorders of lipid metabolism (20 sources) Other and unspecified hyperlipidemia; Translations: [Hyperlipidemia] Resolved: 0 12-18-2017 Chronic Comment on above: stable on pravastati n stable on pravastati n, not fasting today will get it fasting next time stable on pravastati n,get cholesterol Epilepsy; convulsions (1 source) Unspecified convulsions; Translations: [Unspecified convulsions] Onset: 5 Episodic Esophageal disorders (20 sources) Gastroesophageal reflux disease; Translations: [GERD (gastroesophageal reflux disease)] 12-18-2017 Chronic Comment on above: chronic stable-olivier nue present regimen, 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 Essential hypertension (20 sources) Hypertensive disorder; Translations: [Essential hypertension] 12-18-2017 Chronic Comment on above: stable on accupril stable on accupril, sinus rthym Gastrointestinal hemorrhage (20 sources) Rectal hemorrhage; Translations: [Rectal bleeding] Resolved: 1 11-27-2016 Episodic Headache, including migraine (20 sources) Headache; Translations: [Headache] Resolved: 7 04-06-2017 Episodic Immunizations and screening for infectious disease (20 sources) Need for prophylactic vaccination and inoculation against influenza; Translations: [Patient encounter status] 2020 Episodic Lymphadenitis (20 sources) Lymphadenopathy; Translations: [Lymphadenopathy] 01-31-2022 Episodic Malaise and fatigue (1 source) Asthenia; Translations: [Weakness] 01-20-2023 Episodic Neoplasms of unspecified nature or uncertain behavior (20 sources) Neoplastic disease; Translations: [Neoplasm of uncertain behavior of skin] Resolved: 7 04-06-2017 Episodic Nutritional deficiencies (20 sources) Vitamin D deficiency; Translations: [Vitamin D deficiency] 12-18-2017 Chronic Comment on above: stable on 2 2000IU V it D3 daily decreasing Vit D to 1 2000 daily Occlusion or stenosis of precerebral arteries (20 sources) Right carotid artery stenosis; Translations: [Occlusion and stenosis of bilateral carotid arteries] Resolved: 0 12-18-2017 Chronic Comment on above: See MRA Significant Rt ICA stenosis get dopplrs and see how much plaque See MRA Significant Rt ICA stenosis, saw Dr. Marin has rt cavernus stenosis then sent to neuro [facility]avis reviewed note with bilateral stnosis Alzheimers with early onset, to maintain choles, asa, BP with accupril Other bone disease and musculoskeletal deformities (20 sources) Osteopenia; Translations: [Osteopenia] 12-18-2017 Episodic Comment on above: taking Vit D Other circulatory disease (2 sources) Transient hypotension; Translations: [Hypotension, unspecified] 06-04-2022 Episodic Other circulatory disease (8 sources) Low blood pressure; Translations: [Hypotension due to hypovolemia] Resolved: 3 06-19-2022 Episodic Other connective tissue disease (20 sources) Muscle pain; Translations: [Myalgia and myositis] Resolved: 2 11-27-2016 Episodic Other connective tissue disease (20 sources) Radial styloid tenosynovitis; Translations: [De Quervain's disease (radial styloid tenosynovitis)] Resolved: 7 04-06-2017 Episodic Comment on above: both wrist. injected . talk about risk include hypopigmentation, atrophy and weakness. Other connective tissue disease (20 sources) Myalgia Episodic Other connective tissue disease (20 sources) Plantar fasciitis; Translations: [Plantar fasciitis] Resolved: 7 04-06-2017 Episodic Other connective tissue disease (20 sources) Spasm; Translations: [Muscle spasm] Resolved: 2 11-27-2016 Episodic Other connective tissue disease (20 sources) Pain of left hand; Translations: [Left hand pain] Resolved: 0 01-12-2020 Episodic Other diseases of kidney and ureters (2 sources) Acute renal insufficiency; Translations: [Disorder of kidney and ureter, unspecified] 06-04-2022 Episodic Other ear and sense organ disorders (20 sources) Impacted cerumen; Translations: [Cerumen impaction] Resolved: 7 11-27-2016 Episodic Other ear and sense organ disorders (20 sources) Excessive cerumen in ear canal ; Translations: [Ceruminosis, bilateral (Renamed from Excessive cerumen in both ear canals)] Resolved: 7 11-27-2016 Episodic Other female genital disorders (20 sources) Vaginal dryness; Translations: [Vaginal dryness] Resolved: 7 11-27-2016 Episodic Other gastrointestinal disorders (20 sources) Constipation; Translations: [Constipation] Resolved: 7 04-06-2017 Episodic Other gastrointestinal disorders (20 sources) H/O: gastrointestinal disease; Translations: [History of constipation] Resolved: 7 04-06-2017 Episodic Comment on above: went to ER for impac tion Other injuries and conditions due to external causes (20 sources) Injury of left hand; Translations: [Hand injury, left, initial encounter] Resolved: 0 01-12-2020 Episodic Other lower respiratory disease (20 sources) Chronic cough; Translations: [Chronic cough] Resolved: 7 11-27-2016 Episodic Other lower respiratory disease (20 sources) Wheezing; Translations: [Wheezing] Resolved: 1 11-27-2016 Episodic Other lower respiratory disease (20 sources) Rib pain; Translations: [Rib pain on left side] Resolved: 7 11-27-2016 Episodic Comment on above: posteriorwoke up wit h pain back scapular area Other nervous system disorders (20 sources) Word finding difficulty ; Translations: [Word finding difficulty] Resolved: 0 01-12-2020 Episodic Other non-traumatic joint disorders (20 sources) Pain of left wrist; Translations: [Left wrist pain] Resolved: 0 01-12-2020 Episodic Other non-traumatic joint disorders (16 sources) Shoulder pain; Translations: [Right shoulder pain] Resolved: 3 03-17-2022 Episodic Other non-traumatic joint disorders (2 sources) Pain in right shoulder; Translations: [Right shoulder pain] Resolved: 3 08-01-2022 Episodic Other nutritional; endocrine; and metabolic disorders (20 sources) Body mass index 25-29 - overweight; Translations: [BMI 27.0-27.9,adult] Resolved: 9 08-07-2017 Chronic Other nutritional; endocrine; and metabolic disorders (20 sources) Body mass index 30+ - obesity; Translations: [BMI 30.0-30.9,adult] Resolved: 3 01-23-2020 Chronic Other nutritional; endocrine; and metabolic disorders (20 sources) Body mass index 25-29 - overweight; Translations: [BMI 26.0-26.9,adult] Resolved: 9 11-27-2016 Episodic Other nutritional; endocrine; and metabolic disorders (20 sources) Overweight in adulthood with body mass index of 25 or more but less than 30; Translations: [BMI 26.0-26.9,adult] Resolved: 3 11-27-2016 Episodic Other upper respiratory disease (20 sources) Allergic rhinitis due to other allergen; Translations: [Allergic rhinitis] Resolved: 7 04-06-2017 Chronic Other upper respiratory infections (20 sources) Acute sinusitis; Translations: [Acute sinusitis, unspecified] Resolved: 0 12-18-2017 Episodic Otitis media and related conditions (20 sources) Dysfunction of eustachian tube; Translations: [Eustachian tube dysfunction (Renamed from Dysfunction of eustachian tube)] Resolved: 7 04-06-2017 Episodic Peripheral and visceral atherosclerosis (20 sources) Unspecified atherosclerosis; Translations: [Atheroma of artery] 12-18-2017 Chronic Comment on above: per MRA of head on started pravachol, monitor lipid , ASA Pneumonia (20 sources) Bacterial pneumonia; Translations: [Pneumonia, bacterial] Resolved: 1 11-27-2016 Episodic Residual codes; unclassified (20 sources) Postmenopausal state; Translations: [Postmenopausal (Renamed from Postmenopausal status)] 05-10-2018 Episodic Residual codes; unclassified (20 sources) Poor short-term memory ; Translations: [Short-term memory loss] Resolved: 0 05-10-2018 Episodic Comment on above: mild atrophic change s per CT stay on BP ASA and cholesterol med, gets renewed by Alfredo on ASAPer Dr. Moreno wanted her to have a driving test, but wont let her drive.Family asking if I can renew namendaseeing Tiffanie on namenda early dementia mild atrophic change s per CT stay on BP ASA and cholesterol med, gets renewed by Alfredo on ASAPer Dr. Moreno wanted her to have a driving test, but wont let her drive.Family asking if I can renew namenda, this was doneseeing Tiffanie on namenda early dementia Residual codes; unclassified (20 sources) Body Mass Index between 19-24, adult; Translations: [Finding of body mass index] Resolved: 7 11-27-2016 Episodic Residual codes; unclassified (19 sources) Needs influenza immunization; Translations: [Need for prophylactic vaccination and inoculation against influenza] 05-10-2018 Episodic Residual codes; unclassified (4 sources) Increased body mass index; Translations: [BMI 29.0-29.9,adult] 09-06-2018 Episodic Residual codes; unclassified (20 sources) Non-smoker; Translations: [Nonsmoker] 2020 Episodic Residual codes; unclassified (20 sources) Influenza vaccination declined; Translations: [Influenza vaccination declined (Renamed from Refused influenza vaccine)] Resolved: 2 12-24-2020 Episodic Skin and subcutaneous tissue infections (20 sources) Cellulitis; Translations: [Cellulitis] Resolved: 0 11-27-2016 Episodic Spondylosis; intervertebral disc disorders; other back problems (20 sources) Neck pain; Translations: [Pain in thoracic spine] Resolved: 7 04-06-2017 Episodic Superficial injury; contusion (20 sources) Insect bite of head and neck; Translations: [Insect bite, nonvenomous of face, neck, and scalp except eye, without mention of infection] Resolved: 9 11-27-2016 Episodic Syncope (10 sources) Near syncope; Translations: [Syncope and collapse] Resolved: 3 06-04-2022 Episodic Unclassified (20 sources) Breast neoplasm screening status; Translations: [Magnetic resonance imaging of brain abnormal] Resolved: 3 12-18-2017 Episodic Unclassified (20 sources) Atherosclerotic plaque Unclassified (20 sources) Word finding difficulty Unclassified (20 sources) Unclassified (20 sources) Nonsmoker; Translations: [Non-smoker] 12-18-2017 Unclassified (20 sources) Short-term memory loss Unclassified (20 sources) Carotid stenosis, symptomatic w/o infarct, right Unclassified (17 sources) CERUMEN IMPACTION (380.4) Unclassified (20 sources) screening 12-18-2017 Unclassified (20 sources) BMI 27.0-27.9,adult Unclassified (20 sources) Colon cancer screening; Translations: [Screening status] 12-18-2017 Unclassified (20 sources) Encounter for screening mammogram for breast cancer (Renamed from Encounter for screening mammogram for malignant neoplasm of breast) Unclassified (20 sources) Hypercholesteremia Unclassified (20 sources) Abdominal Pain,LLQ (789.04) Unclassified (20 sources) Muscle spasm (728.85) Unclassified (20 sources) Lesion-Unknown behavior (238.2) Unclassified (17 sources) Ceruminosis, bilateral (Renamed from Excessive cerumen in both ear canals) Unclassified (20 sources) Bilateral carotid artery stenosis Unclassified (17 sources) Postmenopausal (Renamed from Postmenopausal status) Unclassified (20 sources) BMI 28.0-28.9,adult Unclassified (17 sources) Eustachian tube dysfunction (Renamed from Dysfunction of eustachian tube) Unclassified (20 sources) screen Resolved: 0 11-27-2016 Unclassified (17 sources) BMI between 19-24,adult Unclassified (17 sources) History of constipation Unclassified (17 sources) Plantar Fascititis (728.71) Unclassified (20 sources) BMI 29.0-29.9,adult Unclassified (20 sources) Alzheimer's dementia Unclassified (5 sources) BMI 30.0-30.9,adult Unclassified (1 source) Other toxic encephalopathy; Translations: [Other toxic encephalopathy] Onset: 4 Urinary tract infections (20 sources) Urinary tract infectious disease; Translations: [Urinary tract infection, site not specified] Resolved: 12-18-2017 Episodic Past or Other Problems Problem Classification Problem Date Documented Da te Episodic/Chronic Administrative/social admission (17 sources) Medical examinations/report s status; Translations: [Well woman exam] Resolved: 07-27-2010 11-27-2016 Episodic Developmental disorders (17 sources) Word finding difficulty ; Translations: [Word finding difficulty] Resolved: 07-22-2019 12-18-2017 Chronic Fever of unknown origin (20 sources) Fever; Translations: [Fever] Onset: 01-29-2024 Resolved: 07-27-2010 11-27-2016 Episodic Genitourinary symptoms and ill-defined conditions (20 sources) Abnormal urine; Translations: [Hematuria, unspecified] Onset: 01-29-2024 Resolved: 11-27-2016 04-06-2017 Episodic Comment on above: mod leucocytes and m od blood Hemorrhoids (20 sources) Hemorrhoids; Translations: [Hemorrhoids] Resolved: 11-27-2016 04-06-2017 Episodic Occlusion or stenosis of precerebral arteries (9 sources) Bilateral carotid artery stenosis; Translations: [Bilateral carotid artery stenosis] Resolved: 07-22-2019 01-15-2018 Comment on above: get dopplrs and see how much plaque Other connective tissue disease (7 sources) Pain of left hand; Translations: [Left hand pain] Resolved: 07-22-2019 07-22-2019 Other gastrointestinal disorders (1 source) Constipation, unspecified; Translations: [Constipation, unspecified] Onset: 01-29-2024 Episodic Other hematologic conditions (1 source) Secondary polycythemia; Translations: [Secondary polycythemia] Onset: 01-29-2024 Episodic Other non-traumatic joint disorders (7 sources) Pain of left wrist; Translations: [Left wrist pain] Resolved: 07-22-2019 07-22-2019 Other upper respiratory infections (20 sources) Chronic sinusitis; Translations: [Sinusitis, chronic] Resolved: 11-27-2016 04-06-2017 Chronic Pneumonia (20 sources) Pneumonia Residual codes; unclassified (11 sources) History of total hysterectomy; Translations: [Hysterectomy, Total] Resolved: 11-27-2016 04-06-2017 Episodic Comment on above: NO cancer Residual codes; unclassified (14 sources) History of appendectomy; Translations: [Appendectomy] Resolved: 11-27-2016 04-06-2017 Episodic Unclassified (20 sources) H/O: section; Translations: [Body Mass Index between 19-24, adult] Resolved: 11-27-2016 04-06-2017 Episodic Comment on above: NO cancer mild atrophic change s per CT stay on BP ASA and cholesterol med, gets renewed by Alfredo on ASAPer Dr. Moreno wanted her to have a driving test, but wont let her drive.Family asking if I can renew namendaseeing Tiffanie on namenda early dementia Unclassified (17 sources) UTI symptoms Unclassified (20 sources) BMI 26.0-26.9,adult Unclassified (17 sources) Abnormal MRA, brain Unclassified (17 sources) Rib pain on left side (786.50) Unclassified (17 sources) De Quervain's disease (radial styloid tenosynovitis) (727.04) Unclassified (20 sources) Unspecified Diagnosis 12-18-2017 Unclassified (17 sources) Calculus, kidney (592.0) Unclassified (20 sources) thoracic pain Resolved: 11-27-2016 11-27-2016 Unclassified (17 sources) D&C Resolved: 11-27-2016 04-06-2017 Unclassified (17 sources) Insect bite, nonvenomous of face, neck, and scalp except eye, without mention of infection (910.4) Unclassified (17 sources) CONTACT DERMATITIS D/T POISON CELESTE, (692.6) Unclassified (17 sources) Well Woman Exam (V72.31) (Pap,Mammo,Routine Female) (Renamed from Well Woman V72.31 (p,m)) Unclassified (20 sources) Pregnancies (); Translations: [Pregnancies ()] 12-18-2017 Comment on above: 2 Unclassified (20 sources) Deliveries (Parity); Translations: [Deliveries (Parity)] 12-18-2017 Comment on above: 2 Unclassified (20 sources) Patient encounter status; Translations: [Colon cancer screening] 05-10-2018 Unclassified (14 sources) Non-smoker; Translations: [Nonsmoker] 05-10-2018 Unclassified (12 sources) Finding of body mass index; Translations: [BMI between 19-24,adult] Resolved: 11-27-2016 11-27-2016 Unclassified (1 source) Screening status; Translations: [Colon cancer screening] 07-22-2019 Unclassified (14 sources) Injury of left hand; Translations: [Hand injury, left, initial encounter] Resolved: 07-22-2019 07-22-2019 Unclassified (7 sources) Left hand pain Unclassified (7 sources) Left wrist pain Unclassified (8 sources) Annual Medicare Physical (Renamed from Medicare annual wellness visit, subsequent) Unclassified (20 sources) Total hysterectomy; Translations: [Hysterectomy, Total] Resolved: 11-27-2016 04-06-2017 Comment on above: NO cancer Unclassified (1 source) Encounter for hepatitis C virus screening test for high risk patient Urinary tract infections (20 sources) Urinary tract infections Viral infection (2 sources) Disease caused by 2019-nCoV; Translations: [COVID-19] Onset: 01-29-2024 01-12-2023 Episodic Results Test Name Value Interpretation Reference Range Facility Basic Metabolic Profile (BMP )on 07-04-2024 BUN/CRE 19.7 RATIO Normal - [facility] Comment on above: Performed By: #### L 100.0100, L500.2500 #### [facility] [address] [place], [address] Calcium [Mass/Vol] 9.2 mg/dL Normal 7.6-11.0 [facility] Comment on above: Performed By: #### L 100.0100, L500.2500 #### [facility] [address] [place], [address] Chloride [Moles/Vol] 105 mmol/L Normal 98-108 [facility] Comment on above: Performed By: #### L 100.0100, L500.2500 #### [facility] [address] [place], [address] CO2 [Moles/Vol] 25.9 mmol/L Normal 21.0-32.0 [facility] Comment on above: Performed By: #### L 100.0100, L500.2500 #### [facility] [address] [place], [address] Creatinine [Mass/Vol] 1.06 mg/dL Normal 0.70-1.20 [facility] Comment on above: Performed By: #### L 100.0100, L500.2500 #### [facility] [address] [place], [address] ECRCL 34.13 ml/min Low 50-250 [facility] Comment on above: Performed By: #### L 100.0100, L500.2500 #### [facility] [address] [place], [address] GAP 9 Normal 5-15 [facility] Comment on above: Performed By: #### L 100.0100, L500.2500 #### [facility] [address] [place], [address] GFR/1.73 sq M.predicted among non-blacks MDRD (S/P/Bld) [Vol rate/Area] 54 mL/min/{1.73_m2} Low >60 [facility] Comment on above: Result Comment: mL/m in/1.73m2 CKD-EPI Creatinine Equation (2020) Performed By: #### L 100.0100, L500.2500 #### [facility] [address] [place], [address] Glucose [Mass/Vol] 100 mg/dL High 70-99 [facility] Comment on above: Performed By: #### L 100.0100, L500.2500 #### [facility] [address] [place], [address] Potassium [Moles/Vol] 4.3 mmol/L Normal 3.3-5.1 [facility] Comment on above: Performed By: #### L 100.0100, L500.2500 #### [facility] [address] [place], [address] Sodium [Moles/Vol] 140 mmol/L Normal 133-145 [facility] Comment on above: Performed By: #### L 100.0100, L500.2500 #### [facility] [address] [place], [address] Urea nitrogen [Mass/Vol] 21 mg/dL High 4-19 [facility] Comment on above: Performed By: #### L 100.0100, L500.2500 #### [facility] [address] [place], [address] Brain/Head without Contrasto n 07-04-2024 Brain/Head without Contrast [facility] [address] [place] [address] Brain/Head without Contrast MR#: [id number] Acct: [id number] Name: ARIS CR Rep #: [id number] : 1945 F 79 From: Joaquin Streeter MD PCP: NEYMAR Law Status: REG ER Study: Brain/Head without Contrast Date of Exam: 04/29 Exam# [id number] Ordering Dr: Eileen Moss PROCEDURE: BRAIN/HEAD WITHOUT CONTRAST (CTBR), 07/04/2024 REASON FOR EXAM: AMS COMPARISON: 01/27/2024 TECHNIQUE: CT head was performed without IV contrast. Multiplanar reformats were generated. RADIATION DOSE SUMMARY: CTDlvol: 44.99+ 44.99+ 44.99 mGy DLP: 2438.95 mGycm One or more dose reduction techniques were used (e.g., Automated exposure control, adjustment of the mA and/or kV according to patient size, use of iterative reconstruction technique). FINDINGS: Cerebrum: No visible acute hemorrhage, definite acute territorial infarct, or visible mass. Similar [id number] diffuse cerebral volume loss and patchy presumed chronic microvascular ischemic supratentorial white matter changes. Slight upward bowing of the corpus callosum. Cerebellum/brainstem: Unremarkable. Note slight limitation due to beam hardening artifact. Ventricles/extra-axial spaces: Lateral and 3rd ventriculomegaly is perhaps slightly disproportionate to the degree of cerebral volume loss however the appearance is similar to 01/27/2024. Visualized paranasal sinuses/mastoid air cells: Mucous retention cyst or polyp in the LEFT maxillary sinus.. Scalp/calvarium: Unremarkable. Other: Intracranial atherosclerosis.. CT/Brain/Head without Contrast IMPRESSION: 1. No visible acute intracranial findings. If there is persistent concern for an acute intracranial process, consider MRI. 2. Similar chronic findings including a constellation which may be suggestive of normal pressure/communicating hydrocephalus given the appropriate clinical context. 3. Additional description as above. Reading Location: [id number] CC: NEYMAR Cox; ABRAM [employer] Writer: Signed Normal [facility] CBC W/Diff, Automatedon 05-0 Absolute Lymph 1.80 X10 3/uL Normal 0.83-4.51 [facility] Comment on above: Performed By: #### L 100.0100, L500.2500 #### [facility] [address] [place], [place], [id number] Absolute Neut 6.4 X10 3/uL Normal 2.0-7.7 [facility] Comment on above: Performed By: #### L 100.0100, L500.2500 #### [facility] [address] [place], [address] Basophils/100 WBC (Bld) 0.3 % Normal 0-1 [facility] Comment on above: Performed By: #### L 100.0100, L500.2500 #### [facility] [address] [place], [address] Eosinophils/100 WBC (Bld) 1.2 % Normal 0-5 [facility] Comment on above: Performed By: #### L 100.0100, L500.2500 #### [facility] [address] [place], [address] Erythrocyte distribution width (RBC) [Ratio] 12.6 % Normal 11.6-14.6 [facility] Comment on above: Performed By: #### L 100.0100, L500.2500 #### [facility] [address] [place], [address] Hematocrit (Bld) [Volume fraction] 40.1 % Normal 37-47 [facility] Comment on above: Performed By: #### L 100.0100, L500.2500 #### [facility] [address] [place], [address] Hemoglobin (Bld) [Mass/Vol] 13.6 g/dL Normal 12.0-15.0 [facility] Comment on above: Performed By: #### L 100.0100, L500.2500 #### [facility] [address] [place], [address] IG% 1.100 High 0.0-0.9 [facility] Comment on above: Result Comment: IG% - Immature Granulocytes (promyelocytes, myelocytes and metamyelocytes) > 1% indicates that a LEFT SHIFT is Present. Performed By: #### L 100.0100, L500.2500 #### [facility] [address] [place], [address] Lymphocytes/100 WBC (Bld) 20.0 % Normal 19-41 [facility] Comment on above: Performed By: #### L 100.0100, L500.2500 #### [facility] [address] [place], [address] MCH (RBC) [Entitic mass] 29.6 pg Normal 27.0-32.0 [facility] Comment on above: Performed By: #### L 100.0100, L500.2500 #### [facility] [address] [place], [address] MCHC (RBC) [Mass/Vol] 33.9 g/dL Normal 32-36 [facility] Comment on above: Performed By: #### L 100.0100, L500.2500 #### [facility] [address] [place], [address] MCV (RBC) [Entitic vol] 87.2 fL Normal 81-99 [facility] Comment on above: Performed By: #### L 100.0100, L500.2500 #### [facility] [address] [place], [address] Monocytes/100 WBC (Bld) 6.8 % Normal 0-10 [facility] Comment on above: Performed By: #### L 100.0100, L500.2500 #### [facility] [address] [place], [address] Neutrophils/100 WBC (Bld) 70.6 % High 47-70 [facility] Comment on above: Performed By: #### L 100.0100, L500.2500 #### [facility] [address] [place], [address] Nucleated RBC (Bld) [#/Vol] 0 10*3/uL Normal 0-5 [facility] Comment on above: Performed By: #### L 100.0100, L500.2500 #### [facility] [address] [place], [address] Platelet mean volume (Bld) [Entitic vol] 8.9 fL Normal 6.2-12.0 [facility] Comment on above: Performed By: #### L 100.0100, L500.2500 #### [facility] [address] [place], [address] Platelets (Bld) [#/Vol] 142 10*3/uL Low 150-450 [facility] Comment on above: Performed By: #### L 100.0100, L500.2500 #### [facility] [address] [place], [address] RBC (Bld) [#/Vol] 4.60 10*6/uL Normal 4.2-5.4 [facility] Comment on above: Performed By: #### L 100.0100, L500.2500 #### [facility] [address] [place], [address] RDW SD 39.8 fl Normal 35.1-43.9 [facility] Comment on above: Performed By: #### L 100.0100, L500.2500 #### [facility] [address] [place], [address] WBC (Bld) [#/Vol] 9.0 10*3/uL Normal 4.4-11.0 [facility] Comment on above: Performed By: #### L 100.0100, L500.2500 #### [facility] [address] [place], [address] Emergency Department Summary on 07-04-2024 Emergency Department Summary [facility] Medical Records Department [address] [place] [address] Emergency Department Summary 07/04/24 MR#: [id number] Acct: [id number] Name: ARIS CR Nguyễn Rep #: [id number] : 1945 79 From: Alonso Marin MD PCP: NEYMAR Law Status:DEP ER Location: ED HPI History of Present Illness Chief Complaint: Seizure Narrative Narrative: 79-year-old female with history of Alzheimer's dementia, minimally verbal at baseline presents after possible seizure activity. [facility] Medical History Atherosclerosis of abdominal aorta Hiatal hernia Osteopenia Carotid stenosis CKD stage 3a, GFR 45-59 ml/min Thrombocytopenia COVID-19 Hypertension Kidney stones Non-smoker Hyperlipidemia Dementia Home Medications ???Medication ???Instructions ???Recorded ???Last Taken ???Type memantine 10 mg tablet 10 mg PO BID 07/31/16 05/22/23 His tory aspirin 81 mg capsule 81 mg PO DAILY 01/27/24 Unknown Hi story cholecalciferol (vitamin D3) 10 10 mcg PO DAILY 01/27/24 Unknown H istory mcg (400 unit) tablet (Vitamin D3) Allergy/AdvReac Type Severity Reaction Status Date / Time No Known Allergies Allergy Verified 05/23/23 10:46 Surgical History Hx of cholecystectomy History of hysterectomy Social History (Updated 01/27/24 @ 15:[address] Karma Johnson DO) household members: spouse housing: house other: severe dementia an is non-verbal at baseline Smoking Status: Never smoker alcohol intake: never substance use type: does not use ROS ROS ED ROS Narrative Unable to obtain due to nonverbal dementia EXAM Physical Exam Narrative Exam Narrative: CONST: Patient sitting in no acute distress and smiles when I look at her. EYES: Normal inspection. ENT: Normal inspection, moist mucous membranes. NECK: Normal inspection. RESP: No respiratory distress, CTAB. CVS: Regular rate and rhythm, no murmur, no gallop. ABD: Soft and nontender, no guarding or rebound, nondistended. SKIN: Color normal, no rash, warm, dry, intact. EXTREMITIES: Normal appearance, no pedal edema. NEURO: Alert, nonverbal (baseline). Spontaneously moving all extremities but does not follow commands. PSYCH: Normal affect. Const Vital Signs: 07/04/24 10:36 07/04/24 12:08 07/04/24 13:00 Temperature 97.4 F L Temperature Source Temporal Pulse Rate 57 L 67 89 Respiratory Rate 16 16 18 Blood Pressure 95/69 107/83 H 102/78 Blood Pressure Mean 77 91 86 Pulse Ox 96 98 98 Oxygen Delivery Method Room Air Room Air 07/04/24 13:05 Temperature 98.3 F Temperature Source Pulse Rate 89 Respiratory Rate 18 Blood Pressure 102/78 Blood Pressure Mean 86 Pulse Ox 98 Oxygen Delivery Method Physical Exam Const Vital Signs: 07/04/24 10:36 07/04/24 12:08 07/04/24 13:00 Temperature 97.4 F L Temperature Source Temporal Pulse Rate 57 L 67 89 Respiratory Rate 16 16 18 Blood Pressure 95/69 107/83 H 102/78 Blood Pressure Mean 77 91 86 Pulse Ox 96 98 98 Oxygen Delivery Method Room Air Room Air 07/04/24 13:05 Temperature 98.3 F Temperature Source Pulse Rate 89 Respiratory Rate 18 Blood Pressure 102/78 Blood Pressure Mean 86 Pulse Ox 98 Oxygen Delivery Method MDM MDM MDM Narrative Medical decision making narrative: arrived and provided more history. He states his goes to [employer] daycare Sunday through Sunday. She went around 7:30 AM as usual and he got a call that she had tried to sit down on a trash can and fell. There was no head injury. They were concerned maybe she had brief seizure activity. He states patient has no history of seizures and upon his arrival she is acting at her normal baseline. He has no acute concerns. Initially her BP was slightly low at 95/69 but she does not look ill. After IV fluids it is 102/78. Screening blood work and CT brain scan were obtained prior to the arriving. Labs are unremarkable. CT brain shows no acute findings. Patient is acting at her baseline and was able to ambulate and is comfortable taking her home. She was discharged in stable condition. I have personally performed a face to face assessment of the patient and have reviewed the ELI Note. I performed a substantive portion of the visit including all aspects of the following. My leija findings include: History is [79-year-old female history of dementia and she is nonverbal. Brought in by squad today. Possible seizure at home. Patient is unable to give any history. Awaiting family to get more information. Currently not here in the emergency department as of yet.] Exam is (more content not included)... Normal [facility] Urinalysis, Completeon 07-04 BACTERIA Normal None Seen [facility] Comment on above: Order Comment: JASMINA CTOR TO SPECIFY Result Comment: Jono zuluaga via OM: Ordered Performed By: #### L 400.0001 #### [facility] [address] [place], [address] BILIRUBIN URINE Normal Negative [facility] Comment on above: Order Comment: COLLE CTOR TO SPECIFY Result Comment: Canc elled via OM: MD Ordered Performed By: #### L 400.0001 #### [facility] [address] [place], [address] Clarity (U) Normal Clear [facility] Comment on above: Order Comment: COLLE CTOR TO SPECIFY Result Comment: Canc elled via OM: MD Ordered Performed By: #### L 400.0001 #### [facility] [address] [place], [address] Color (U) Normal Yellow [facility] Comment on above: Order Comment: JASMINA CTOR TO SPECIFY Result Comment: Canc elled via OM: MD Ordered Performed By: #### L 400.0001 #### [facility] [address] [place], [address] EPI,SQUAMOUS Normal 5-10 [facility] Comment on above: Order Comment: JASMINA CTOR TO SPECIFY Result Comment: Canc elled via OM: MD Ordered Performed By: #### L 400.0001 #### [facility] [address] [place], [address] GLUCOSE, UR Normal Normal [facility] Comment on above: Order Comment: JASMINA CTOR TO SPECIFY Result Comment: Canc elled via OM: MD Ordered Performed By: #### L 400.0001 #### [facility] [address] [place], [address] KETONE UR Normal Negative [facility] Comment on above: Order Comment: JASMINA CTOR TO SPECIFY Result Comment: Canc elled via OM: MD Ordered Performed By: #### L 400.0001 #### [facility] [address] [place], [address] LEUK ESTERASE Normal Negative [facility] Comment on above: Order Comment: COLLE CTOR TO SPECIFY Result Comment: Canc elled via OM: MD Ordered Performed By: #### L 400.0001 #### [facility] [address] [place], [address] Mucus Ql (Urine sed) Normal [facility] Comment on above: Order Comment: JASMINA CTOR TO SPECIFY Result Comment: Canc elled via OM: MD Ordered Performed By: #### L 400.0001 #### [facility] [address] [place], [address] Nitrite Ql (U) Normal Negative [facility] Comment on above: Order Comment: JASMINA CTOR TO SPECIFY Result Comment: Canc elled via OM: MD Ordered Performed By: #### L 400.0001 #### [facility] [address] [place], [address] OCCULT BLOOD-UR Normal Negative [facility] Comment on above: Order Comment: JASMINA CTOR TO SPECIFY Result Comment: Canc elled via OM: MD Ordered Performed By: #### L 400.0001 #### [facility] [address] [place], [address] pH UR Normal 5.0 - 8.0 [facility] Comment on above: Order Comment: JASMINA CTOR TO SPECIFY Result Comment: Canc elled via OM: MD Ordered Performed By: #### L 400.0001 #### [facility] [address] [place], [address] PROT DIPSTX Normal Negative [facility] Comment on above: Order Comment: JASMINA CTOR TO SPECIFY Result Comment: Canc elled via OM: MD Ordered Performed By: #### L 400.0001 #### [facility] [address] [place], [address] RBC Normal 0-5 [facility] Comment on above: Order Comment: JASMINA CTOR TO SPECIFY Result Comment: Canc elled via OM: MD Ordered Performed By: #### L 400.0001 #### [facility] [address] [place], [address] SP.GR. DIPSTX Normal 1.002-1.03 0 [facility] Comment on above: Order Comment: COLLE CTOR TO SPECIFY Result Comment: Canc elled via OM: MD Ordered Performed By: #### L 400.0001 #### [facility] [address] [place], [address] UR Preservative Normal [facility] Comment on above: Order Comment: COLLE CTOR TO SPECIFY Result Comment: Canc elled via OM: MD Ordered Performed By: #### L 400.0001 #### [facility] [address] [place], [address] UROBILI Normal Normal [facility] Comment on above: Order Comment: COLLE CTOR TO SPECIFY Result Comment: Canc elled via OM: MD Ordered Performed By: #### L 400.0001 #### [facility] [address] [place], [address] WBC Normal 0-5 [facility] Comment on above: Order Comment: COLLE CTOR TO SPECIFY Result Comment: Canc elled via OM: MD Ordered Performed By: #### L 400.0001 #### [facility] [address] [place], [address] Culture, Blood (WB)on 2023 CUB Blood cultures x2 fr om two different sites No growth in 5 days. Normal [facility] Comment on above: Performed By: #### M 100.678 #### [facility] [address] [place], [address] CUB No growth in 5 days. Normal [facility] Comment on above: Performed By: #### M 100.678 #### [facility] [address] [place], [address] Discharge Instructionon 01-04 Discharge Instruction [facility] Medical Records Department [address] [place] [address] Instructions for Home/Discharge Instructions 01/29/24 1806 MR#: [id number] Acct: [id number] Name: ARIS CR Rep #: [id number] : 1945 78 From: Joaquin Larose DO PCP: NEYMAR Law Status:ADM IN Discharge Instructions Diet Discharge Diet: - (Mechanical soft diet, thin liquids) DC O2, CPAP, BIPAP needs Additional Home O2 Discharge instructions: No Dressing / Incision Discharge Activity: Return to Normal Activity Weight Bearing Status: Full weight bearing Follow Up Care Test Results: Test results from this visit will be discussed in further detail at your follow-up appointment, if applicable. Discharge Plan Admission Admit Date/Time: 01/27/24 14:32 Primary Reason for Your Visit: Rhinovirus infection, debility, dementia Attending Provider: Joaquin Larose Primary Care Provider: Marivel Cox Consulting Providers: Karma Johnson; Deisi Hart; Helen Quiroz; Salena Brandt; Korina Lam; Evita Escobar NP; Kisha Wall Discharge Orders/Prescriptions Prescriptions: Continued memantine 10 MG tablet 10 mg PO BID cholecalciferol (vitamin D3) [Vitamin D3] 10 mcg (400 unit) tablet 10 mcg PO DAILY aspirin 81 mg capsule 81 mg PO DAILY Referrals / Follow Up: Marivel Cox NP-C [Primary Care Provider] - Disposition Disposition (needs filled in before D/C Order can be placed): Against Medical Advice 01/29/241813 Joaquin Larose DO CC: NEYMAR Cox; NEYMAR Lam; NEYMAR Escobar; Dr. Deisi Hart DO; Dr. Salena Brandt MD; Dr. Helen Quiroz MD; Dr. Karma Johnson DO; ABRAM Silvestre Signed Normal [facility] CBC W/Diff, Automatedon - Absolute Lymph 1.50 X10 3/uL Normal 0.83-4.51 [facility] Comment on above: Performed By: #### L 501.5200, L501.9520, L100.0100, L500.4050, L501.2300 #### [facility] [address] [place], [address] Absolute Neut 6.0 X10 3/uL Normal 2.0-7.7 [facility] Comment on above: Performed By: #### L 501.5200, L501.9520, L100.0100, L500.4050, L501.2300 #### [facility] [address] [place], [address] Basophils/100 WBC (Bld) 0.4 % Normal 0-1 [facility] Comment on above: Performed By: #### L 501.5200, L501.9520, L100.0100, L500.4050, L501.2300 #### [facility] [address] [place], [address] Eosinophils/100 WBC (Bld) 1.6 % Normal 0-5 [facility] Comment on above: Performed By: #### L 501.5200, L501.9520, L100.0100, L500.4050, L501.2300 #### [facility] [address] [place], [address] Erythrocyte distribution width (RBC) [Ratio] 12.7 % Normal 11.6-14.6 [facility] Comment on above: Performed By: #### L 501.5200, L501.9520, L100.0100, L500.4050, L501.2300 #### [facility] [address] [place], [address] Hematocrit (Bld) [Volume fraction] 40.9 % Normal 37-47 [facility] Comment on above: Performed By: #### L 501.5200, L501.9520, L100.0100, L500.4050, L501.2300 #### [facility] [address] [place], [address] Hemoglobin (Bld) [Mass/Vol] 13.5 g/dL Normal 12.0-15.0 [facility] Comment on above: Performed By: #### L 501.5200, L501.9520, L100.0100, L500.4050, L501.2300 #### [facility] [address] [place], [address] IG% 0.400 Normal 0.0-0.9 [facility] Comment on above: Result Comment: IG% - Immature Granulocytes (promyelocytes, myelocytes and metamyelocytes) > 1% indicates that a LEFT SHIFT is Present. Performed By: #### L 501.5200, L501.9520, L100.0100, L500.4050, L501.2300 #### [facility] [address] [place], [address] Lymphocytes/100 WBC (Bld) 17.6 % Low 19-41 [facility] Comment on above: Performed By: #### L 501.5200, L501.9520, L100.0100, L500.4050, L501.2300 #### [facility] [address] [place], [address] MCH (RBC) [Entitic mass] 28.7 pg Normal 27.0-32.0 [facility] Comment on above: Performed By: #### L 501.5200, L501.9520, L100.0100, L500.4050, L501.2300 #### [facility] [address] [place], [address] MCHC (RBC) [Mass/Vol] 33.0 g/dL Normal 32-36 [facility] Comment on above: Performed By: #### L 501.5200, L501.9520, L100.0100, L500.4050, L501.2300 #### [facility] [address] [place], [address] MCV (RBC) [Entitic vol] 87.0 fL Normal 81-99 [facility] Comment on above: Performed By: #### L 501.5200, L501.9520, L100.0100, L500.4050, L501.2300 #### [facility] [address] [place], [address] Monocytes/100 WBC (Bld) 9.6 % Normal 0-10 [facility] Comment on above: Performed By: #### L 501.5200, L501.9520, L100.0100, L500.4050, L501.2300 #### [facility] [address] [place], [address] Neutrophils/100 WBC (Bld) 70.4 % High 47-70 [facility] Comment on above: Performed By: #### L 501.5200, L501.9520, L100.0100, L500.4050, L501.2300 #### [facility] [address] [place], [address] Nucleated RBC (Bld) [#/Vol] 0 10*3/uL Normal 0-5 [facility] Comment on above: Performed By: #### L 501.5200, L501.9520, L100.0100, L500.4050, L501.2300 #### [facility] [address] [place], [address] Platelet mean volume (Bld) [Entitic vol] 8.7 fL Normal 6.2-12.0 [facility] Comment on above: Performed By: #### L 501.5200, L501.9520, L100.0100, L500.4050, L501.2300 #### [facility] [address] [place], [address] Platelets (Bld) [#/Vol] 117 10*3/uL Low 150-450 [facility] Comment on above: Performed By: #### L 501.5200, L501.9520, L100.0100, L500.4050, L501.2300 #### [facility] [address] [place], [address] RBC (Bld) [#/Vol] 4.70 10*6/uL Normal 4.2-5.4 [facility] Comment on above: Performed By: #### L 501.5200, L501.9520, L100.0100, L500.4050, L501.2300 #### [facility] [address] [place], [address] RDW SD 39.9 fl Normal 35.1-43.9 [facility] Comment on above: Performed By: #### L 501.5200, L501.9520, L100.0100, L500.4050, L501.2300 #### [facility] [address] [place], [address] WBC (Bld) [#/Vol] 8.5 10*3/uL Normal 4.4-11.0 [facility] Comment on above: Performed By: #### L 501.5200, L501.9520, L100.0100, L500.4050, L501.2300 #### [facility] [address] [place], [address] Comprehensive Metabolic [facility] 01-28-2024 Albumin [Mass/Vol] 3.1 g/dL Low 3.2-5.0 [facility] Comment on above: Performed By: #### L 501.5200, L501.9520, L100.0100, L500.4050, L501.2300 #### [facility] [address] [place], [address] Albumin/Globulin [Mass ratio] 1.0 {ratio} Normal 0.9-2.4 [facility] Comment on above: Performed By: #### L 501.5200, L501.9520, L100.0100, L500.4050, L501.2300 #### [facility] [address] [place], [address] ALK P 86 U/L Normal 45-117 [facility] Comment on above: Performed By: #### L 501.5200, L501.9520, L100.0100, L500.4050, L501.2300 #### [facility] [address] [place], [address] ALT [Catalytic activity/Vol] 11 U/L Low 13-56 [facility] Comment on above: Performed By: #### L 501.5200, L501.9520, L100.0100, L500.4050, L501.2300 #### [facility] [address] [place], [address] AST [Catalytic activity/Vol] 17 U/L Normal 15-37 [facility] Comment on above: Performed By: #### L 501.5200, L501.9520, L100.0100, L500.4050, L501.2300 #### [facility] [address] [place], [address] Bilirubin [Mass/Vol] 0.90 mg/dL Normal 0.20-1.00 [facility] Comment on above: Result Comment: For patients on eltrombopag therapy, use of Dimension Tyndall TBIL is not recommended. Performed By: #### L 501.5200, L501.9520, L100.0100, L500.4050, L501.2300 #### [facility] [address] [place], [address] BUN/CRE 16.9 RATIO Normal 10-20 [facility] Comment on above: Performed By: #### L 501.5200, L501.9520, L100.0100, L500.4050, L501.2300 #### [facility] [address] [place], [address] CA,Total 8.4 mg/dL Low 8.5-10.1 [facility] Comment on above: Performed By: #### L 501.5200, L501.9520, L100.0100, L500.4050, L501.2300 #### [facility] [address] [place], [address] Chloride [Moles/Vol] 112 mmol/L High 98-107 [facility] Comment on above: Performed By: #### L 501.5200, L501.9520, L100.0100, L500.4050, L501.2300 #### [facility] [address] [place], [address] CO2 [Moles/Vol] 24.0 mmol/L Normal 21.0-32.0 [facility] Comment on above: Performed By: #### L 501.5200, L501.9520, L100.0100, L500.4050, L501.2300 #### [facility] [address] [place], [address] Creatinine [Mass/Vol] 0.83 mg/dL Normal 0.55-1.02 [facility] Comment on above: Result Comment: The validity of the calculated GFR GFRAA in patients over 70 years has not been determined. Clinical correlation is essential. Performed By: #### L 501.5200, L501.9520, L100.0100, L500.4050, L501.2300 #### [facility] [address] [place], [address] ECRCL 44.75 ml/min Normal [facility] Comment on above: Performed By: #### L 501.5200, L501.9520, L100.0100, L500.4050, L501.2300 #### [facility] [address] [place], [address] EST GFR - AA 86 mL/min Normal >60 [facility] Comment on above: Result Comment: Afri can Bhutanese GFR Calc Performed By: #### L 501.5200, L501.9520, L100.0100, L500.4050, L501.2300 #### [facility] [address] [place], [address] GAP 5 Normal 5-15 [facility] Comment on above: Performed By: #### L 501.5200, L501.9520, L100.0100, L500.4050, L501.2300 #### [facility] [address] [place], [address] GFR/1.73 sq M.predicted among non-blacks MDRD (S/P/Bld) [Vol rate/Area] 71 mL/min/{1.73_m2} Normal >60 [facility] Comment on above: Result Comment: Non- GFR Calc Performed By: #### L 501.5200, L501.9520, L100.0100, L500.4050, L501.2300 #### [facility] [address] [place], [address] Globulin (S) [Mass/Vol] 3.2 g/dL Normal 2.2-4.2 [facility] Comment on above: Performed By: #### L 501.5200, L501.9520, L100.0100, L500.4050, L501.2300 #### [facility] [address] [place], [address] Glucose [Mass/Vol] 89 mg/dL Normal 74-106 [facility] Comment on above: Performed By: #### L 501.5200, L501.9520, L100.0100, L500.4050, L501.2300 #### [facility] [address] [place], [address] Potassium [Moles/Vol] 3.6 mmol/L Normal 3.5-5.1 [facility] Comment on above: Performed By: #### L 501.5200, L501.9520, L100.0100, L500.4050, L501.2300 #### [facility] [address] [place], [address] Sodium [Moles/Vol] 142 mmol/L Normal 136-145 [facility] Comment on above: Performed By: #### L 501.5200, L501.9520, L100.0100, L500.4050, L501.2300 #### [facility] [address] [place], [address] T PROT 6.3 g/dL Low 6.4-8.2 [facility] Comment on above: Performed By: #### L 501.5200, L501.9520, L100.0100, L500.4050, L501.2300 #### [facility] [address] [place], [address] Urea nitrogen [Mass/Vol] 14 mg/dL Normal 7-18 [facility] Comment on above: Performed By: #### L 501.5200, L501.9520, L100.0100, L500.4050, L501.2300 #### [facility] [address] [place], [address] M R Staph Aureus DNA by PCRo n 01-28-2024 MRSA DNA ASSAY Negative Normal Negative [facility] Comment on above: Performed By: #### M 100.678 #### [facility] [address] [place], [address] Magnesiumon 01-28-2024 Magnesium [Mass/Vol] 1.8 mg/dL Normal 1.6-2.6 [facility] Comment on above: Performed By: #### L 501.5200, L501.9520, L100.0100, L500.4050, L501.2300 #### [facility] [address] [place], [address] Phosphoruson 01-28-2024 Phosphate [Mass/Vol] 2.7 mg/dL Normal 2.5-4.9 [facility] Comment on above: Performed By: #### L 501.5200, L501.9520, L100.0100, L500.4050, L501.2300 #### [facility] [address] [place], [address] Thyroid Stim Hormone (TSH)on 01-28-2024 TSH 1.570 uIU/mL Normal 0.358-3.74 0 [facility] Comment on above: Performed By: #### M 100.678 #### [facility] [address] [place], [address] 12 Lead EKGon 01-27-2024 12 Lead EKG [facility] [address] [place] [address] 12 Lead EKG 01/27/24 1002 MR#: [id number] Acct: [id number] Name: ARIS CR Rep #: [id number] : 1945 78 From: Reece Louis MD Attending Dr: Dr. Joaquin Larose DO Status: A DM IN Ordering Dr: Lynn Weinberg DO Date: 01/27/24 [place] [facility] [place]: F C Admitted: 01/27/24 Test Reason : Blood Pressure : */* mmHG Vent. Rate : 83 BPM Atrial Rate : 83 BPM P-R Int : 150 ms QRS Dur : 68 ms QT Int : 388 ms P-R-T Axes : 50 32 38 degrees QTcB Int : 455 ms Normal sinus rhythm Normal ECG Confirmed by Reece Louis ([id number]), supervising editor news reel CHARITO HAJI ([id number]) on 01/29/2024 10:28:42 AM Referred By: Confirmed By: Reece Louis 01/29/24 1028 Date Reece Louis MD CC: SALES REPRESENTATIVE [employer]-C Marivel Cox; Dr. Lynn Weinberg DO; Dr. Joaquin Larose DO Signed Normal [facility] Abdomen/Pelvis W IV Cont ONL Yon 01-27-2024 Abdomen/Pelvis W IV Cont ONLY [facility] Imaging Services [address] [place] [address] Abdomen/Pelvis W IV Cont ONLY MR#: [id number] Acct: [id number] Name: ARIS CR Rep #: [id number] : 1945 F 78 From: Cedric Felton MD PCP: NEYMAR Law Status: REG ER Study: Abdomen/Pelvis W IV Cont ONLY Date of Exam: Exam# [id number] Ordering Dr: Lynn Weinberg DO [id number] EXAM: CT ABDOMEN AND PELVIS WITH INTRAVENOUS CONTRAST CLINICAL INDICATION: fever, AMS, TECHNIQUE: Helically acquired images were obtained of the abdomen and pelvis with intravenous contrast. This CT exam was performed using one or more of the following dose reduction techniques: automated exposure control, adjustment of the mA and/or kV according to patient size, and/or use of iterative reconstruction technique. CONTRAST: IV 100mL Isovue-370 COMPARISON: CT Abdomen Pelvis dated 10/26/2015 FINDINGS: LOWER THORAX: Small sliding hiatal hernia. ABDOMEN: LIVER: Normal. Homogeneous. No focal mass. GALLBLADDER AND BILE DUCTS: Cholecystectomy clips are in place. No intra- or extrahepatic biliary ductal dilation. PANCREAS: Normal. No focal cystic or solid mass. SPLEEN: Normal. Normal size without focal cystic or solid mass. ADRENALS: Normal. No nodules. KIDNEYS AND URETERS: Normal. Normal renal size and position. No hydronephrosis. STOMACH AND BOWEL: Normal. No bowel distention. No focal inflammatory change. PELVIS: APPENDIX: No evidence of acute appendicitis. BLADDER: Normal. REPRODUCTIVE: Hysterectomy noted. 2.8 cm right adnexal cyst noted. ACR White Paper guidelines (Chin, et. al. JACR 2020;17(2):248-254) suggest no follow-up is necessary. ABDOMEN and PELVIS: INTRAPERITONEAL SPACE: Normal. No ascites or other fluid collection. No free air. BONES/JOINTS: No suspicious lytic or blastic abnormality. SOFT TISSUES: Normal. No discrete abdominal or pelvic wall hernia. VASCULATURE: Normal. Abdominal aorta is non-dilated. LYMPH NODES: Normal. No enlarged lymph nodes. CT/Abdomen/Pelvis W IV Cont ONLY IMPRESSION: No acute intra-abdominal or pelvic abnormality. Electronically Signed: Cedric Felton MD at 15:25 EST , CC: NEYMAR Cox; Dr. Lynn Weinberg DO Customs Entry Writer: Signed Normal [facility] Brain/Head without Contrasto n 01-27-2024 Brain/Head without Contrast [facility] Imaging Services [address] [place] [address] [id number] Brain/Head without Contrast MR#: [id number] Acct: [id number] Name: ARIS CR Rep #: [id number] : 1945 F 78 From: Cedric Felton MD PCP: NEYMAR Law Status: REG ER Study: Brain/Head without Contrast Date of Exam: 01/04 06/26 Exam# [id number] Ordering Dr: Lynn Weinberg DO [id number] EXAM: CT HEAD WITHOUT INTRAVENOUS CONTRAST CLINICAL INDICATION: AMS TECHNIQUE: Multiple axial images were obtained of the head without intravenous contrast. This CT exam was performed using one or more of the following dose reduction techniques: automated exposure control, adjustment of the mA and/or kV according to patient size, and/or use of iterative reconstruction technique. COMPARISON: CT Head dated 06/04/2022 FINDINGS: BRAIN AND EXTRA-AXIAL SPACES: No hemorrhage or mass effect. No acute ischemia. Areas of diminished white matter density noted within both cerebral hemispheres suggestive of chronic microvascular change. Prominence of the cortical sulci and ventricles related to volume loss change. Posterior fossa is normal. Basilar cisterns are normal. BONES/JOINTS: Normal calvarium. SINUSES: Trace fluid within the left maxillary sinus. Mild mucosal thickening within the ethmoid sinuses. MASTOID AIR CELLS: Normal. Clear. CT/Brain/Head without Contrast IMPRESSION: 1. No acute intracranial abnormality. 2. Chronic small vessel ischemic change and age-related atrophy. Electronically Signed: Cedric Felton MD at 10:54 EST , CC: NEYMAR Cox; Dr. Lynn Weinberg, Customs Entry Writer: Signed Normal [facility] CBC W/Diff, Automatedon 01-04 Absolute Lymph 0.88 X10 3/uL Normal 0.83-4.51 [facility] Comment on above: Performed By: #### L 400.0001 #### [facility] [address] [facility] [address] Absolute Neut 10.4 X10 3/uL High 2.0-7.7 [facility] Comment on above: Performed By: #### L 400.0001 #### [facility] [address] [facility] [address] Basophils/100 WBC (Bld) 0.3 % Normal 0-1 [facility] Comment on above: Performed By: #### L 400.0001 #### [facility] [address] [place], [address] Eosinophils/100 WBC (Bld) 0.5 % Normal 0-5 [facility] Comment on above: Performed By: #### L 400.0001 #### [facility] [address] [facility] [address] Erythrocyte distribution width (RBC) [Ratio] 12.8 % Normal 11.6-14.6 [facility] Comment on above: Performed By: #### L 400.0001 #### [facility] [address] [place], [address] Hematocrit (Bld) [Volume fraction] 46.5 % Normal 37-47 [facility] Comment on above: Performed By: #### L 400.0001 #### [facility] [address] [place], [address] Hemoglobin (Bld) [Mass/Vol] 15.2 g/dL High 12.0-15.0 [facility] Comment on above: Performed By: #### L 400.0001 #### [facility] [address] [place], [address] IG% 0.400 Normal 0.0-0.9 [facility] Comment on above: Result Comment: IG% - Immature Granulocytes (promyelocytes, myelocytes and metamyelocytes) > 1% indicates that a LEFT SHIFT is Present. Performed By: #### L 400.0001 #### [facility] [address] [facility] [place], [address] Lymphocytes/100 WBC (Bld) 7.2 % Low 19-41 [facility] Comment on above: Performed By: #### L 400.0001 #### [facility] [address] [facility] [place], [address] MCH (RBC) [Entitic mass] 29.1 pg Normal 27.0-32.0 [facility] Comment on above: Performed By: #### L 400.0001 #### [facility] [address] [place], [address] MCHC (RBC) [Mass/Vol] 32.7 g/dL Normal 32-36 [facility] Comment on above: Performed By: #### L 400.0001 #### [facility] [address] [place], [address] MCV (RBC) [Entitic vol] 88.9 fL Normal 81-99 [facility] Comment on above: Performed By: #### L 400.0001 #### [facility] [address] [place], [address] Monocytes/100 WBC (Bld) 5.8 % Normal 0-10 [facility] Comment on above: Performed By: #### L 400.0001 #### [facility] [address] [place], [address] Neutrophils/100 WBC (Bld) 85.8 % High 47-70 [facility] Comment on above: Performed By: #### L 400.0001 #### [facility] [address] [place], [address] Nucleated RBC (Bld) [#/Vol] 0 10*3/uL Normal 0-5 [facility] Comment on above: Performed By: #### L 400.0001 #### [facility] [address] [place], [address] Platelet mean volume (Bld) [Entitic vol] 8.5 fL Normal 6.2-12.0 [facility] Comment on above: Performed By: #### L 400.0001 #### [facility] [address] [place], [address] Platelets (Bld) [#/Vol] 112 10*3/uL Low 150-450 [facility] Comment on above: Performed By: #### L 400.0001 #### [facility] [address] [place], [address] RBC (Bld) [#/Vol] 5.23 10*6/uL Normal 4.2-5.4 [facility] Comment on above: Performed By: #### L 400.0001 #### [facility] [address] [place], [address] RDW SD 41.7 fl Normal 35.1-43.9 [facility] Comment on above: Performed By: #### L 400.0001 #### [facility] [address] [place], [address] WBC (Bld) [#/Vol] 12.1 10*3/uL High 4.4-11.0 [facility] Comment on above: Performed By: #### L 400.0001 #### [facility] [address] [place], [address] CPK Total, Creatine Kinaseon 01-27-2024 CPK TOTAL 67 U/L Normal 26-192 [facility] Comment on above: Performed By: #### M 100.678 #### [facility] [address] [place], [address] CRPon 01-27-2024 C-REACTIVE PROT < 2.90 Normal 0.0-3.0 [facility] Comment on above: Result Comment: C-Re active Protein (CRP) provides useful information for the diagnosis, therapy and monitoring of inflammatory processes and associated diseases. For the evaluation of Relative Risk for Cardiovascular Disease, a High Sensitivity CRP (HSCRP) should be ordered. Performed By: #### M 100.678 #### [facility] [address] [place], [address] Chest 1 View (Portable)on Chest 1 View (Portable) [facility] Imaging Services [address] [place] [address] Chest 1 View (Portable) MR#: [id number] Acct: [id number] Name: ARIS CR Rep #: [id number] : 1945 F 78 From: Cedric Felton MD PCP: NEYMAR Law Status: REG ER Study: Chest 1 View (Portable) Date of Exam: 01/27/24 Exam# [id number] Ordering Dr: Lynn Weinberg DO [id number] EXAM: XR CHEST, 1 VIEW CLINICAL INDICATION: AMS TECHNIQUE: Frontal view of the chest. COMPARISON: XR Chest dated 05/23/2023 FINDINGS: LUNGS AND PLEURAL SPACES: Normal. No consolidation or edema. No pneumothorax. No effusion. HEART: Normal heart size. MEDIASTINUM: No mediastinal or hilar mass. BONES/JOINTS: No acute abnormality. RAD/Chest 1 View (Portable) IMPRESSION: No acute cardiopulmonary abnormality. No interval change. Electronically Signed: Cedric Felton MD at 10:54 EST Reading Location ID and State: [facility] / [place] Tel , Service support , CC: NEYMAR Cox; Dr. Lynn Weinberg DO Customs Entry Writer: Signed Normal [facility] Comprehensive Metabolic Prof ilon 01-27-2024 Albumin [Mass/Vol] 3.8 g/dL Normal 3.2-5.0 [facility] Comment on above: Order Comment: АЛЕКСАНДР TER SPECIMEN Performed By: #### L 400.0001 #### [facility] [address] [facility] [place], [address] Albumin/Globulin [Mass ratio] 1.1 {ratio} Normal 0.9-2.4 [facility] Comment on above: Order Comment: АЛЕКСАНДР TER SPECIMEN Performed By: #### L 400.0001 #### [facility] [address] [place], [address] ALK P 100 U/L Normal 45-117 [facility] Comment on above: Order Comment: АЛЕКСАНДР TER SPECIMEN Performed By: #### L 400.0001 #### [facility] [address] [place], [address] ALT [Catalytic activity/Vol] 13 U/L Normal 13-56 [facility] Comment on above: Order Comment: АЛЕКСАНДР TER SPECIMEN Performed By: #### L 400.0001 #### [facility] [address] [place], [address] AST [Catalytic activity/Vol] 15 U/L Normal 15-37 [facility] Comment on above: Order Comment: АЛЕКСАНДР TER SPECIMEN Performed By: #### L 400.0001 #### [facility] [address] [place], [address] Bilirubin [Mass/Vol] 0.70 mg/dL Normal 0.20-1.00 [facility] Comment on above: Order Comment: АЛЕКСАНДР TER SPECIMEN Result Comment: For patients on eltrombopag therapy, use of Dimension [place] TBIL is not recommended. Performed By: #### L 400.0001 #### [facility] [address] [place], [address] BUN/CRE 20.4 RATIO High 10-20 [facility] Comment on above: Order Comment: АЛЕКСАНДР TER SPECIMEN Performed By: #### L 400.0001 #### [facility] [address] [place], [address] CA,Total 9.2 mg/dL Normal 8.5-10.1 [facility] Comment on above: Order Comment: АЛЕКСАНДР TER SPECIMEN Performed By: #### L 400.0001 #### [facility] [address] [place], [address] Chloride [Moles/Vol] 109 mmol/L High 98-107 [facility] Comment on above: Order Comment: АЛЕКСАНДР TER SPECIMEN Performed By: #### L 400.0001 #### [facility] [address] [place], [address] CO2 [Moles/Vol] 22.0 mmol/L Normal 21.0-32.0 [facility] Comment on above: Order Comment: АЛЕКСАНДР TER SPECIMEN Performed By: #### L 400.0001 #### [facility] [address] [place], [address] Creatinine [Mass/Vol] 1.03 mg/dL High 0.55-1.02 [facility] Comment on above: Order Comment: АЛЕКСАНДР TER SPECIMEN Result Comment: The validity of the calculated GFR GFRAA in patients over 70 years has not been determined. Clinical correlation is essential. Performed By: #### L 400.0001 #### [facility] [address] [place], [address] ECRCL 36.06 ml/min Normal [facility] Comment on above: Order Comment: АЛЕКСАНДР TER SPECIMEN Performed By: #### L 400.0001 #### [facility] [address] [place], [address] EST GFR - AA 67 mL/min Normal >60 [facility] Comment on above: Order Comment: АЛЕКСАНДР TER SPECIMEN Result Comment: Afri can Bhutanese GFR Calc Performed By: #### L 400.0001 #### [facility] [address] [place], [address] GAP 8 Normal 5-15 [facility] Comment on above: Order Comment: АЛЕКСАНДР TER SPECIMEN Performed By: #### L 400.0001 #### [facility] [address] [place], [address] GFR/1.73 sq M.predicted among non-blacks MDRD (S/P/Bld) [Vol rate/Area] 55 mL/min/{1.73_m2} Low >60 [facility] Comment on above: Order Comment: АЛЕКСАНДР TER SPECIMEN Result Comment: Non- GFR Calc Performed By: #### L 400.0001 #### [facility] [address] [place], [address] Globulin (S) [Mass/Vol] 3.6 g/dL Normal 2.2-4.2 [facility] Comment on above: Order Comment: АЛЕКСАНДР TER SPECIMEN Performed By: #### L 400.0001 #### [facility] [address] [place], [address] Glucose [Mass/Vol] 104 mg/dL Normal 74-106 [facility] Comment on above: Order Comment: АЛЕКСАНДР TER SPECIMEN Result Comment: Fast ing Glucose result from 100 to 125 mg/dL suggests IMPAIRED HOMEOSTASIS per A.D.A. criteria. Performed By: #### L 400.0001 #### [facility] [address] [place], [address] Potassium [Moles/Vol] 4.2 mmol/L Normal 3.5-5.1 [facility] Comment on above: Order Comment: АЛЕКСАНДР TER SPECIMEN Performed By: #### L 400.0001 #### [facility] [address] [place], [address] Sodium [Moles/Vol] 139 mmol/L Normal 136-145 [facility] Comment on above: Order Comment: АЛЕКСАНДР TER SPECIMEN Performed By: #### L 400.0001 #### [facility] [address] [place], [address] T PROT 7.4 g/dL Normal 6.4-8.2 [facility] Comment on above: Order Comment: АЛЕКСАНДР TER SPECIMEN Performed By: #### L 400.0001 #### [facility] [address] [place], [address] Urea nitrogen [Mass/Vol] 21 mg/dL High 7-18 [facility] Comment on above: Order Comment: АЛЕКСАНДР TER SPECIMEN Performed By: #### L 400.0001 #### [facility] [address] [place], [address] Emergency Department Summary on 01-27-2024 Emergency Department Summary [facility] Medical Records Department [address] [place] [address] Emergency Department Summary 01/27/24 MR#: [id number] Acct: [id number] Name: ARIS CR Rep #: [id number] : 1945 78 From: Lynn Weinberg DO PCP: NEYMAR Law Status:REG ER Location: ED HPI History of Present Illness Chief Complaint: Alt LOC Informant: spouse/S.O. Limited: dementia Narrative Narrative: Patient is a 78-year-old female with history of dementia/Alzheimer's disease and prior history of hypertension presenting for generalized weakness. Patient is minimally verbal at baseline which states is been going on for years. He notes over the past few days she has been having more irregular and less urination. This morning she was much more tired than normal and fell asleep in the chair which is not abnormal for her but when her went to get her up she would not get up. She would not eat her normal breakfast. He was concerned and brought her to the emergency room. He notes her cheeks maybe look a little more flushed than normal. No report of any vomiting, change in bowel movements, fever or other acute symptoms. No report of any recent falls. No other complaints or concerns at this time. PFSH PFS Medical History Atherosclerosis of abdominal aorta Hiatal hernia Osteopenia Carotid stenosis CKD stage 3a, GFR 45-59 ml/min Thrombocytopenia COVID-19 Hypertension Kidney stones Non-smoker Hyperlipidemia Dementia Home Medications ???Medication ???Instructions ???Recorded ???Last Taken ???Type memantine 10 mg tablet 10 mg PO BID 07/31/16 05/22/23 History aspirin 81 mg capsule 81 mg PO DAILY 01/27/24 Unknown History cholecalciferol (vitamin D3) 10 10 mcg PO DAILY 01/27/24 Unknown History mcg (400 unit) tablet (Vitamin D3) Allergy/AdvReac Type Severity Reaction Status Date / Time No Known Allergies Allergy Verified 05/23/23 10:46 Family History unable to obtain Surgical History Hx of cholecystectomy History of hysterectomy Social History (Updated 01/27/24 @ 15:[address] Karma Johnson, ) household members: spouse housing: house other: severe dementia an is non-verbal at baseline Smoking Status: Never smoker alcohol intake: never substance use type: does not use ROS ROS ED Review of Systems ROS Unobtainable: due to mental status EXAM Physical Exam Const Vital Signs: 01/27/24 08:51 01/27/24 08:54 01/27/24 11:30 Temperature 98.6 F 97.1 F L 99.4 F H Temperature Source Oral Temporal Axillary Pulse Rate 78 87 81 Respiratory Rate 16 16 18 Blood Pressure 110/98 H 170/89 H 136/96 H Blood Pressure Mean 102 116 109 Pulse Ox 98 170 98 Oxygen Delivery Method Room Air Room Air Room Air 01/27/24 12:00 01/27/24 13:00 01/27/24 14:00 Temperature 99.4 F H 100.5 F H 100.5 F H Temperature Source Oral Axillary Axillary Pulse Rate 82 87 86 Respiratory Rate 16 18 18 Blood Pressure 143/111 H 140/118 H 136/86 H Blood Pressure Mean 121 125 102 Pulse Ox 98 98 98 Oxygen Delivery Method Room Air Room Air Room Air Positive well nourished and well developed General Appearance ED: well developed and NAD HEENT Reports TM's clear and moist mucous membranes HEENT Narrative: Cerumen with partial obstruction of the tympanic membrane on the right. Negative for trauma Tympanic Membrane ED: Yes TM's clear Eyes PERRL and EOMs intact bilaterally Neck supple Chest Wall inspection of chest normal and palpation of chest normal Resp normal respiratory effort and clear to auscultation bilaterally Cardio regular rate and regular rhythm GI normal to inspection, nondistended, normoactive bowel sounds, non-tender and non-distended Extremity normal to inspection General Extremety ED: Negative for edema General Extremity: Negative for edema Neuro Neuro Narrative: Patient nonverbal, does not follow all directions but overall cooperative. Sensorium / Orientation: alert Motor Exam: general weakness Psych Psych Narrative: Calm, agreeable Mood Affect: Negative for depressed or anxious Skin no rashes or lesions noted and no wounds Skin Narrative: Slightly flushed cheeks. MDM MDM MDM Narrative Medical decision making narrative: Patient valuated for increased weakness. She has a history of was also pretty advanced dementia and is nonverbal/minimally verbal at baseline. Vital signs initially normal but repeat does show hypertension. Differential includes encephalopathy, urinary tract infection, dehydration, JARRETT, intracranial hemorrhage, stroke, ACS, electrolyte abnormality. Will obtain workup and including CT of the brain, EKG, troponin (more content not included)... Normal [facility] Erythrocyte Sed Rateon 01-26 SED RATE 3 mm/hr Normal 0-30 [facility] Comment on above: Performed By: #### M 100.678 #### [facility] [address] [place], [address] H AND P Exam - [facility] 01-27-2024 H&P Exam - Hospitalist [facility] Medical Records Department [address] [place] [address] H P Exam - Hospitalist 01/27/24 1320 MR#: [id number] Acct: [id number] Name: ARIS CR Rep #: [id number] : 1945 78 From: Karmacarlos Johnson DO PCP: NEYMAR Law Status:REG ER Location: ED HPI - General General Date of Admission: 01/27/24 Date of Service: 01/27/24 Chief Complaint: Altered MS and decreased PO intake HPI Narrative ARIS CR, is a 78 F who presented to the emergency department with her due to generalized malaise and worsening fatigue. Patient has baseline dementia and lives at home with her . She goes to [employer] 5 days a week for adult daycare. At baseline she is nonverbal but is able to ambulate independently and will still pick out her close and get dressed independently. She cannot toilet independently anymore however. states she was in her normal state of health yesterday. He states she got up early this morning and got dressed and went out and sat in the chair and fell asleep at about 5 AM. At about 6 AM she woke up and was unable to get out of the chair independently. She seemed weaker and less arousable. reports that she has been having less urination that is a bit more irregular. After she woke up she would not eat her normal breakfast so he brought her to the emergency department. Prior to today there were no issues. She has not had any cough, shortness of breath, nausea, vomiting, diarrhea. She has chronic constipation issues. No known fever or chills at home. Her cheeks do appear flushed on exam but otherwise her exam is fairly benign. Vital signs on presentation showed temperature 98.6, heart rate 78, blood pressure 110/98, respiratory 16 oxygen saturation was 98% on room air. She did spike a temperature 1 in the emergency department with a Tmax of 100.5 degrees. CBC shows a mild leukocytosis with a white count of 12.1. Hemoglobin is slightly up from baseline of 15.2 with her baseline being between 14 and 15. Platelet count is chronically low and stable on presentation 112,000. She does have a left shift with an 85.8% neutrophilia and a lymphopenia. Her chemistry panel shows maybe mild dehydration with an elevated BUN from baseline however creatinine is stable with CKD stage IIIb. Blood glucose level is normal. Lactic acid was 0.9. Liver function was unremarkable. Her initial troponin was 25. CRP was less than 2.9. Sed rate was normal at 3. A procalcitonin was 0.06. Her UA is not consistent with infection. She does have some microscopic hematuria on her UA and does appear mildly dry with a specific gravity of 1.015. No bacteria or white cells were noted. Chest x-ray shows no acute abnormality. EKG was unremarkable for any acute findings. CT of the brain shows chronic small vessel ischemic changes and age-related atrophy with no acute intracranial abnormality and CT of the abdomen pelvis was pending on admission. COVID/flu/RSV was negative. [facility] Medical History Atherosclerosis of abdominal aorta Hiatal hernia Osteopenia Carotid stenosis CKD stage 3a, GFR 45-59 ml/min Thrombocytopenia COVID-19 Hypertension Kidney stones Non-smoker Hyperlipidemia Dementia Home Medications ???Medication ???Instructions ???Recorded ???Last Taken ???Type memantine 10 mg tablet 10 mg PO BID 07/31/16 05/22/23 History aspirin 81 mg capsule 81 mg PO DAILY 01/27/24 Unknown History cholecalciferol (vitamin D3) 10 10 mcg PO DAILY 01/27/24 Unknown History mcg (400 unit) tablet (Vitamin D3) Allergy/AdvReac Type Severity Reaction Status Date / Time No Known Allergies Allergy Verified 05/23/23 10:46 Family History unable to obtain unable to obtain Surgical History Hx of cholecystectomy History of hysterectomy Social History (Updated 01/27/24 @ 15:[address] Karma Johnson DO) household members: spouse housing: house other: severe dementia an is non-verbal at baseline Smoking Status: Never smoker alcohol intake: never substance use type: does not use ROS Review of Systems ROS Unobtainable: due to mental condition Vital Signs Vital Signs Vital Signs: 01/27/24 08:51 01/27/24 08:54 01/27/24 11:30 Temperature 98.6 F 97.1 F L 99.4 F H Temperature Source Oral Temporal Axillary Pulse Rate 78 87 81 Respiratory Rate 16 16 18 Blood Pressure 110/98 H 170/89 H 136/96 H Blood Pressure Mean 102 116 109 Pulse Ox 98 170 98 Oxygen Delivery Method Room Air Room Air Room Air 01/27/24 12:00 Temperature 99.4 F H Temperature Source Oral Pulse Rate 82 Respiratory Rate 16 Blood Pressure 143/111 H Blood Pressure Mean 121 Pulse Ox 98 Oxygen Delivery Method Room (more content not included)... Normal [facility] [id number] 01-27-2024 TROPONIN-I HS 25 pg/mL Normal 3.0-54.0 [facility] Comment on above: Order Comment: АЛЕКСАНДР BALDERAS SPECIMEN Result Comment: Adonis warner Note: New Test Units and Gender Specific Reference Ranges. For more information see Policy Stat Procedure [place] High Sensitivity Troponin (TNIH) and attachments. Performed By: #### L 400.0001 #### [facility] [address] [place], [address] Lactic Acidon 01-27-2024 Lactate [Moles/Vol] 0.9 mmol/L Normal 0.4-1.9 [facility] Comment on above: Order Comment: Y Performed By: #### M 100.678 #### [facility] [address] [place], [address] [id number] 01-27-2024 M100.678 Pending SARS-CoV-2 (COVID 19) Negative INFLUENZA A Negative INFLUENZA B Negative RSV PCR Negative Normal [facility] Comment on above: Performed By: #### M 100.678 #### [facility] [address] [place], [address] Procalcitoninon 01-27-2024 Procalcitonin 0.06 ng/mL Normal 0.00-0.09 [facility] Comment on above: Result Comment: A procalcitonin (PCT) level above 2.0 ng/mL on the first day of ICU admission is associated with a high risk for progression to severe sepsis and/or septic shock. A PCT level below 0.5 ng/mL on the first day of ICU admission is associated with a low risk for progression to severe and/or septic shock. Note: Concentrations <0.5 ng/mL do not exclude an infection on account of localized infections (without systemic signs) which can be associated with such low concentrations, or a systemic infection in its initial stages (<6 hours). Furthermore, increased procalcitonin can occur without infection. PCT concentrations between 0.5 and 2.0 ng/mL should be interpreted taking into account the patient's history. It is recommended to retest PCT within 6-24 hours if any concentrations <2 ng/mL are obtained. Performed By: #### M 100.678 #### [facility] [address] [place], [address] RESPIRATORY PANEL MOLECULARo n 01-27-2024 RP PANEL Normal Reference Ran ge = Not Detected Resp path DNA+RNA Pnl Resp KADEN+probe Nucleic acid amplification test method Resp path DNA+RNA Pnl Resp KADEN+probe Copy of report sent to Infection Control Printer [id number] 01/27/24 [id number] CFORMAN. ADENOVIRUS Not Detected INFLUENZA A Not Detected INFLUENZA A (SUBTYPE H1) Not Detected INFLUENZA A (SUBTYPE H3) Not Detected INFLUENZA B Not Detected HUMAN METAPHNEUMO Not Detected PARAINFLUENZA 1 Not Detected PARAINFLUENZA 2 Not Detected PARAINFLUENZA 3 Not Detected PARAINFLUENZA 4 Not Detected RHINOVIRUS A Positive for RHINOVIRUS by NAAT technology A RSV A Not Detected RSV B Not Detected RHINOVIRUS Normal [facility] Comment on above: Performed By: #### L 400.0001 #### [facility] [address] [place], [address] Urinalysis, Completeon 01-26 RBC 0-5 SEEN Normal 0-5 [facility] Comment on above: Order Comment: АЛЕКСАНДР TER SPECIMEN Performed By: #### L 400.0001 #### [facility] [address] [place], [address] BACTERIA 0 SEEN Normal None Seen [facility] Comment on above: Order Comment: АЛЕКСАНДР TER SPECIMEN Performed By: #### L 400.0001 #### [facility] [address] [place], [address] EPI,SQUAMOUS 0 SEEN Normal 5-10 [facility] Comment on above: Order Comment: АЛЕКСАНДР TER SPECIMEN Performed By: #### L 400.0001 #### [facility] [address] [place], [place], [id number] Mucus Ql (Urine sed) 0 SEEN Normal [facility] Comment on above: Order Comment: АЛЕКСАНДР TER SPECIMEN Performed By: #### L 400.0001 #### [facility] [address] [place], [address] WBC 0 SEEN Normal 0-5 [facility] Comment on above: Order Comment: АЛЕКСАНДР TER SPECIMEN Performed By: #### L [id number] #### [facility] [address] [place], [place], [id number] Absolute lymphocyte countOrd ered By: Adolph Garcia on 05-23-2023 Lymphocytes Auto (Unsp spec) [#/Vol] 1.79 10*3/uL 0.83-4.51 [facility] Automated lymphocyte count a s percentage of total leukocytesOrdered By: Adolph Garcia on 05-23-2023 Lymphocytes/100 WBC Auto (Unsp spec) 21.9 % 19-41 [facility] Basophil percentageOrdered B y: Adolph Garcia on 05-23-2023 Basophil percentage 0 SEEN /hpf 0-5 [facility] Basophils/100 WBC (Bld) 0.4 % 0-1 [facility] Chloride [Moles/Vol] 109 mmol/L 98-107 [facility] Eosinophils/100 WBC (Bld) 0.6 % 0-5 [facility] Glucose [Mass/Vol] 99 mg/dL 74-106 [facility] Hemoglobin (Bld) [Mass/Vol] 14.5 g/dL 12.0-15.0 [facility] Monocytes/100 WBC (Bld) 10.3 % 0-10 [facility] Neutrophils (Bld) [#/Vol] 5.4 10*3/uL 2.0-7.7 [facility] Neutrophils/100 WBC (Bld) 66.6 % 47-70 [facility] Potassium [Moles/Vol] 3.9 mmol/L 3.5-5.1 [facility] Sodium [Moles/Vol] 141 mmol/L 136-145 [facility] WBC (Bld) [#/Vol] 8.2 10*3/uL 4.4-11.0 [facility] Bilirubin Test strip Ql (U)O rdered By: Adolph Garcia on 05-23-2023 Bilirubin Ql (U) Negative Negative [facility] Determination of erythrocyte mean corpuscular volume (MCV)Ordered By: Adolph Garcia on 05-23-2023 MCV (RBC) [Entitic vol] 88.8 fL 81-99 [facility] Erythrocyte distribution wid th ratioOrdered By: Adolph Garcia on 05-23-2023 Erythrocyte distribution width (RBC) [Ratio] 12.7 % 11.6-14.6 [facility] Erythrocyte distribution wid th standard deviationOrdered By: Adolph Garcia on 05-23-2023 Erythrocyte distribution width (RBC) [Entitic vol] 41.3 fL 35.1-43.9 [facility] Hematocrit Auto (Bld) [Volum e fraction]Ordered By: Adolph Garcia on 05-23-2023 Hematocrit (Bld) [Volume fraction] 45.2 % 37-47 [facility] Immature granulocytes/100 WB C Auto (Bld)Ordered By: Adolph Garcia on 05-23-2023 Immature granulocytes/100 WBC (Bld) 0.200 % 0.0-0.9 [facility] Comment on above: IG% - Immature Granu locytes (promyelocytes, myelocytes and metamyelocytes) > 1% indicates that a LEFT SHIFT is Present. Ketones Test strip Ql (U)Ord ered By: Adolph Garcia on 05-23-2023 Ketones Ql (U) 5 mg/dl Negative [facility] - Chemistry and C hemistry - challengeOrdered By: Adolph Garcia on 05-23-2023 CO2 [Moles/Vol] 26.0 mmol/L 21.0-32.0 [facility] Urea nitrogen/Creatinine [Mass ratio] 13.5 mg/mg 10-20 [facility] - Hematology and Cell countsOrdered By: Adolph Garcia on 05-23-2023 MCH (RBC) [Entitic mass] 28.5 pg 27.0-32.0 [facility] MCHC (RBC) [Mass/Vol] 32.1 g/dL 32-36 [facility] Nucleated RBC/100 WBC (Bld) [Ratio] 0 % 0-5 [facility] Platelet mean volume (Bld) [Entitic vol] 8.9 fL 6.2-12.0 [facility] Platelets (Bld) [#/Vol] 113 10*3/uL 150-450 [facility] - Microbiology an d Antimicrobial susceptibilityOrdered By: Adolph Garcia on 05-23-2023 SARS-CoV-2 (COVID-19) RNA KADEN+probe Ql (Unsp spec) [facility] Mucus LM Ql (Urine sed)Order ed By: Adolph Garcia on 05-23-2023 Mucus Ql (Urine sed) 0 SEEN /hpf [facility] Nitrite Test strip Ql (U)Ord ered By: Adolph Garcia on 05-23-2023 Nitrite Ql (U) Negative Negative [facility] No Panel InformationOrdered By: Adolph Garcia on 05-23-2023 Urine RBC 0-5 SEEN /hpf 0-5 [facility] Estimated Creatinine Clearance Calc 35.86 ml/min [facility] Estimated GFR (MDRD) Amer 61 mL/min >60 [facility] Comment on above: GFR Calc Estimated GFR (MDRD) Non-Af Amer 51 mL/min >60 [facility] Comment on above: Non- GFR Calc Protein Test strip Ql (U)Ord ered By: Adolph Garcia on 05-23-2023 Protein Ql (U) Negative Negative [facility] RBC Auto (Bld) [#/Vol]Ordere d By: Adolph Garcia on 05-23-2023 RBC (Bld) [#/Vol] 5.09 10*6/uL 4.2-5.4 [facility] Serum or plasma calcium aleksandra urement (mass/volume)Ordered By: Adolph Garcia on 05-23-2023 Calcium [Mass/Vol] 9.0 mg/dL 8.5-10.1 [facility] Serum or plasma creatinine m easurement (mass/volume)Ordered By: Adolph Garcia on 05-23-2023 Creatinine [Mass/Vol] 1.11 mg/dL 0.55-1.02 [facility] Comment on above: The validity of the calculated GFR & GFRAA in patients over 70 years has not been determined. Clinical correlation is essential. Serum or plasma urea nitroge n measurement (mass/volume)Ordered By: Adolph Garcia on 05-23-2023 Urea nitrogen [Mass/Vol] 15 mg/dL 7-18 [facility] Squamous epithelial cells de tection in urine sediment by light microscopyOrdered By: Adolph Garcia on 05-23-2023 Epithelial cells.squamous LM Ql (Urine sed) 0-5 SEEN /hpf 5-10 [facility] Thin prep Papanicolaou smear with manual screeningOrdered By: Adolph Garcia on 05-23-2023 Thin prep Papanicolaou smear with manual screening 6 5-15 [facility] Urine blood detectionOrdered By: Adolph Garcia on 05-23-2023 RBC Ql (U) 50 /ul Negative [facility] Urine clarityOrdered By: Jayshree Garcia on 05-23-2023 Clarity (U) Clear Clear [facility] Urine color determinationOrd ered By: Adolph Garcia on 05-23-2023 Color (U) Yellow Yellow [facility] Urine glucose detectionOrder ed By: Adolph Garcia on 05-23-2023 Glucose Ql (U) Normal mg/dl Normal [facility] Urine leukocyte esterase det ection by dipstickOrdered By: Adolph Garcia on 05-23-2023 Leukocyte esterase Test strip Ql (U) Negative Negative [facility] Urine pHOrdered By: Adolph minor on 05-23-2023 pH (U) 7.0 [pH] 5.0 - 8.0 [facility] Urine sediment bacteria coun t by microscopy (number/high power field)Ordered By: Adolph Garcia on 05-23-2023 Bacteria LM.HPF (Urine sed) [#/Area] 0 /[HPF] None Seen [facility] Urine specific gravity measu rementOrdered By: Adolph Garcia on 05-23-2023 Specific gravity (U) [Rel density] 1.010 1.002-1.03 0 [facility] Urine urobilinogen measureme ntOrdered By: Adolph Garcia on 05-23-2023 Urobilinogen Ql (U) 1 mg/dl Normal [facility] Absolute lymphocyte countOrd ered By: Dr. Mayers on 06-04-2022 Lymphocytes Auto (Unsp spec) [#/Vol] 3.00 10*3/uL 0.83-4.51 [facility] Basophil percentageOrdered B y: Dr. Mayers on 06-04-2022 Basophil percentage 0 SEEN /hpf 0-5 [facility] Basophils/100 WBC (Bld) 0.4 % 0-1 [facility] Chloride [Moles/Vol] 110 mmol/L 98-107 [facility] Eosinophils/100 WBC (Bld) 0.9 % 0-5 [facility] Glucose [Mass/Vol] 183 mg/dL 74-106 [facility] Comment on above: Fasting Glucose resu lt greater than or equal to 126 mg/dL suggests DIABETES MELLITUS per A.D.A. criteria. Neutrophils (Bld) [#/Vol] 5.3 10*3/uL 2.0-7.7 [facility] Neutrophils/100 WBC (Bld) 57.7 % 47-70 [facility] Potassium [Moles/Vol] 3.8 mmol/L 3.5-5.1 [facility] Sodium [Moles/Vol] 140 mmol/L 136-145 [facility] WBC (Bld) [#/Vol] 9.3 10*3/uL 4.4-11.0 [facility] Bilirubin Test strip Ql (U)O rdered By: Dr. Mayers on 06-04-2022 Bilirubin Ql (U) Negative Negative [facility] Blood erythrocytes count (nu mber/volume)Ordered By: Dr. Mayers on 06-04-2022 RBC (Bld) [#/Vol] 4.88 10*6/uL 4.2-5.4 [facility] Blood hemoglobin measurement (mass/volume)Ordered By: Dr. Mayers on 06-04-2022 Hemoglobin (Bld) [Mass/Vol] 14.2 g/dL 12.0-15.0 [facility] Blood lymphocytes/100 leukoc ytesOrdered By: Dr. Mayers on 06-04-2022 Lymphocytes/100 WBC (Bld) 32.4 % 19-41 [facility] Blood monocytes/100 leukocyt esOrdered By: Dr. Mayers on 06-04-2022 Monocytes/100 WBC (Bld) 8.1 % 0-10 [facility] Blood platelet mean volumeOr dered By: Dr. Mayers on 06-04-2022 Platelet mean volume (Bld) [Entitic vol] 8.9 fL 6.2-12.0 [facility] Determination of erythrocyte mean corpuscular volume (MCV)Ordered By: Dr. Mayers on 06-04-2022 MCV (RBC) [Entitic vol] 87.3 fL 81-99 [facility] Hematocrit Auto (Bld) [Volum e fraction]Ordered By: Dr. Mayers on 06-04-2022 Hematocrit (Bld) [Volume fraction] 42.6 % 37-47 [facility] Hyaline casts LM.LPF (Urine sed) [#/Area]Ordered By: Dr. Mayers on 06-04-2022 Hyaline casts (Urine sed) [#/Area] 5 /[LPF] 0-5 [facility] Ketones Test strip Ql (U)Ord ered By: Dr. Mayers on 06-04-2022 Ketones Ql (U) Negative Negative [facility] - Chemistry and C hemistry - challengeOrdered By: Dr. Mayers on 06-04-2022 CO2 [Moles/Vol] 24.0 mmol/L 21.0-32.0 [facility] Urea nitrogen/Creatinine [Mass ratio] 13.4 mg/mg 10-20 [facility] - Hematology and Cell countsOrdered By: Dr. Mayers on 06-04-2022 Erythrocyte distribution width (RBC) [Entitic vol] 42.7 fL 35.1-43.9 [facility] Erythrocyte distribution width (RBC) [Ratio] 13.4 % 11.6-14.6 [facility] Immature granulocytes/100 WBC (Bld) 0.500 % 0.0-0.9 [facility] Comment on above: IG% - Immature Granu locytes (promyelocytes, myelocytes and metamyelocytes) > 1% indicates that a LEFT SHIFT is Present. MCH (RBC) [Entitic mass] 29.1 pg 27.0-32.0 [facility] Nucleated RBC/100 WBC (Bld) [Ratio] 0 % 0-5 [facility] MCHC Auto (RBC) [Mass/Vol]Or dered By: Dr. Mayers on 06-04-2022 MCHC (RBC) [Mass/Vol] 33.3 g/dL 32-36 [facility] Mucus LM Ql (Urine sed)Order ed By: Dr. Mayers on 06-04-2022 Mucus Ql (Urine sed) RARE /hpf [facility] Nitrite Test strip Ql (U)Ord ered By: Dr. Mayers on 06-04-2022 Nitrite Ql (U) Negative Negative [facility] No Panel InformationOrdered By: Dr. Mayers on 06-04-2022 Estimated Creatinine Clearance Calc 24.24 ml/min [facility] Estimated GFR (MDRD) Amer 44 mL/min >60 [facility] Comment on above: GFR Calc Estimated GFR (MDRD) Non-Af Amer 36 mL/min >60 [facility] Comment on above: Non- GFR Calc Troponin I High Sensitivity 12 pg/mL 3.0-54.0 [facility] Comment on above: Please Note: New Nan t Units and Gender Specific Reference Ranges. For more information see Policy Stat Procedure [place] High Sensitivity Troponin (TNIH) and attachments. Platelets bldOrdered By: Dr. Mayers on 06-04-2022 Platelets (Bld) [#/Vol] 186 10*3/uL 150-450 [facility] Protein Test strip Ql (U)Ord ered By: Dr. Mayers on 06-04-2022 Protein Ql (U) 30 mg/dl Negative [facility] Serum or plasma calcium aleksandra urement (mass/volume)Ordered By: Dr. Mayers on 06-04-2022 Calcium [Mass/Vol] 9.3 mg/dL 8.5-10.1 [facility] Serum or plasma creatinine m easurement (mass/volume)Ordered By: Dr. Mayers on 06-04-2022 Creatinine [Mass/Vol] 1.49 mg/dL 0.55-1.02 [facility] Comment on above: The validity of the calculated GFR & GFRAA in patients over 70 years has not been determined. Clinical correlation is essential. Serum or plasma urea nitroge n measurement (mass/volume)Ordered By: Dr. Mayers on 06-04-2022 Urea nitrogen [Mass/Vol] 20 mg/dL 7-18 [facility] Squamous epithelial cells de tection in urine sediment by light microscopyOrdered By: Dr. Mayers on 06-04-2022 Epithelial cells.squamous LM Ql (Urine sed) 0 SEEN /hpf 5-10 [facility] Thin prep Papanicolaou smear with manual screeningOrdered By: Dr. Mayers on 06-04-2022 Thin prep Papanicolaou smear with manual screening 6 5-15 [facility] Urine blood detectionOrdered By: Dr. Mayers on 06-04-2022 RBC Ql (U) 50 /ul Negative [facility] RBC Ql (U) 0-5 SEEN /hpf 0-5 [facility] Urine clarityOrdered By: Dr. Mayers on 06-04-2022 Clarity (U) Clear Clear [facility] Urine color determinationOrd ered By: Dr. Mayers on 06-04-2022 Color (U) Yellow Yellow [facility] Urine glucose detectionOrder ed By: Dr. Mayers on 06-04-2022 Glucose Ql (U) Normal mg/dl Normal [facility] Urine leukocyte esterase det ection by dipstickOrdered By: Dr. Mayers on 06-04-2022 Leukocyte esterase Test strip Ql (U) Negative Negative [facility] Urine pHOrdered By: Dr. Deyvi uriarte on 06-04-2022 pH (U) 5.0 [pH] 5.0 - 8.0 [facility] Urine sediment bacteria coun t by microscopy (number/high power field)Ordered By: Dr. Mayers on 06-04-2022 Bacteria LM.HPF (Urine sed) [#/Area] 0 /[HPF] None Seen [facility] Urine specific gravity measu rementOrdered By: Dr. Mayers on 06-04-2022 Specific gravity (U) [Rel density] 1.020 1.002-1.03 0 [facility] Urobilinogen Auto test strip Ql (U)Ordered By: Dr. Mayers on 06-04-2022 Urobilinogen Ql (U) 1 mg/dl Normal [facility] CBC, PLATELETS & AUT DIFF (1 1856)Ordered By: Supervisor [employer] on 01-31-2022 Basophils (Bld) [#/Vol] 0.0 10*3/uL Normal 0.0-0.2 [facility]; [facility] Work Phone: Basophils/100 WBC (Bld) 1 % Normal [facility]; [facility] Work Phone: Eosinophils (Bld) [#/Vol] 0.2 10*3/uL Normal 0.0-0.4 [facility]; [facility] Work Phone: Eosinophils/100 WBC (Bld) 2 % Normal [facility]; [facility] Work Phone: Erythrocyte distribution width (RBC) [Ratio] 13.6 % Normal 11.7-15.4 [facility]; [facility] Work Phone: Hematocrit (Bld) [Volume fraction] 45.9 % Normal 34.0-46.6 [facility]; [facility] Work Phone: Hemoglobin (Bld) [Mass/Vol] 14.8 g/dL Normal 11.1-15.9 [facility]; [facility] Work Phone: Immature granulocytes (Bld) [#/Vol] 0.0 10*3/uL Normal 0.0-0.1 [facility]; [facility] Work Phone: Immature granulocytes/100 WBC (Bld) 0 % Normal [facility]; [facility] Work Phone: Lymphocytes (Bld) [#/Vol] 2.0 10*3/uL Normal 0.7-3.1 [facility]; [facility] Work Phone: Lymphocytes/100 WBC (Bld) 28 % Normal [facility]; [facility] Work Phone: MCH (RBC) [Entitic mass] 28.1 pg Normal 26.6-33.0 [facility]; [facility] Work Phone: MCHC (RBC) [Mass/Vol] 32.2 g/dL Normal 31.5-35.7 [facility]; [facility] Work Phone: MCV (RBC) [Entitic vol] 87 fL Normal 79-97 [facility]; [facility] Work Phone: Monocytes (Bld) [#/Vol] 0.6 10*3/uL Normal 0.1-0.9 [facility]; [facility] Work Phone: Monocytes/100 WBC (Bld) 8 % Normal [facility]; [facility] Work Phone: Neutrophils (Bld) [#/Vol] 4.3 10*3/uL Normal 1.4-7.0 [facility]; [facility] Work Phone: Neutrophils/100 WBC (Bld) 61 % Normal [facility]; [facility] Work Phone: Platelets (Bld) [#/Vol] 183 10*3/uL Normal 150-450 [facility]; [facility] Work Phone: RBC (Bld) [#/Vol] 5.27 10*6/uL Normal 3.77-5.28 [facility]; [facility] Work Phone: WBC (Bld) [#/Vol] 7.1 10*3/uL Normal 3.4-10.8 [facility]; [facility] Work Phone: METABOLIC PANEL, COMPREHENSI VE ([id number])Ordered By: Supervisor [employer] on 01-31-2022 Albumin [Mass/Vol] 4.3 g/dL Normal 3.7-4.7 [facility]; [facility] Work Phone: Albumin/Globulin [Mass ratio] 1.5 {ratio} Normal 1.2-2.2 [facility]; [facility] Work Phone: ALP [Catalytic activity/Vol] 96 U/L Normal 44-121 [facility]; [facility] Work Phone: ALT [Catalytic activity/Vol] 8 U/L Normal 0-32 [facility]; [facility] Work Phone: AST [Catalytic activity/Vol] 12 U/L Normal 0-40 [facility]; [facility] Work Phone: Bilirubin [Mass/Vol] 0.3 mg/dL Normal 0.0-1.2 [facility]; [facility] Work Phone: Calcium [Mass/Vol] 9.7 mg/dL Normal 8.7-10.3 [facility]; [facility] Work Phone: Chloride [Moles/Vol] 106 mmol/L Normal 96-106 [facility]; [facility] Work Phone: CO2 [Moles/Vol] 22 mmol/L Normal 20-29 [facility]; [facility] Work Phone: Creatinine [Mass/Vol] 1.10 mg/dL Abnormal 0.57-1.00 [facility]; [facility] Work Phone: Globulin (S) [Mass/Vol] 2.8 g/dL Normal 1.5-4.5 [facility]; [facility] Work Phone: Glucose [Mass/Vol] 86 mg/dL Normal 70-99 [facility]; [facility] Work Phone: Potassium [Moles/Vol] 4.6 mmol/L Normal 3.5-5.2 [facility]; [facility] Work Phone: Protein [Mass/Vol] 7.1 g/dL Normal 6.0-8.5 [facility]; [facility] Work Phone: Sodium [Moles/Vol] 143 mmol/L Normal 134-144 [facility]; [facility] Work Phone: Urea nitrogen [Mass/Vol] 18 mg/dL Normal 8-27 [facility]; [facility] Work Phone: Urea nitrogen/Creatinine [Mass ratio] 16 mg/mg Normal 12-28 [facility]; [facility] Work Phone: METABOLIC PANEL, COMPREHENSIVE ([id number]) 52 mL/min/1.73 Abnormal [facility]; [facility] Work Phone: CBC, Platelets & Auto Diff ( [phone])Ordered By: Supervisor [employer] on 09-16-2021 Basophils (Bld) [#/Vol] 0.0 10*3/uL Normal 0.0-0.2 [facility]; [facility] Work Phone: Basophils/100 WBC (Bld) 0 % Normal [facility]; [facility] Work Phone: Eosinophils (Bld) [#/Vol] 0.2 10*3/uL Normal 0.0-0.4 [facility]; [facility] Work Phone: Eosinophils/100 WBC (Bld) 2 % Normal [facility]; [facility] Work Phone: Erythrocyte distribution width (RBC) [Ratio] 13.0 % Normal 11.7-15.4 [facility]; [facility] Work Phone: Hematocrit (Bld) [Volume fraction] 43.4 % Normal 34.0-46.6 [facility]; [facility] Work Phone: Hemoglobin (Bld) [Mass/Vol] 14.6 g/dL Normal 11.1-15.9 [facility]; [facility] Work Phone: Immature granulocytes (Bld) [#/Vol] 0.0 10*3/uL Normal 0.0-0.1 [facility]; [facility] Work Phone: Immature granulocytes/100 WBC (Bld) 1 % Normal [facility]; [facility] Work Phone: Lymphocytes (Bld) [#/Vol] 2.1 10*3/uL Normal 0.7-3.1 [facility]; [facility] Work Phone: Lymphocytes/100 WBC (Bld) 27 % Normal [facility]; [facility] Work Phone: MCH (RBC) [Entitic mass] 29.2 pg Normal 26.6-33.0 [facility]; [facility] Work Phone: MCHC (RBC) [Mass/Vol] 33.6 g/dL Normal 31.5-35.7 [facility] Work Phone: MCV (RBC) [Entitic vol] 87 fL Normal 79-97 [facility]; [facility] Work Phone: Monocytes (Bld) [#/Vol] 0.7 10*3/uL Normal 0.1-0.9 [facility]; [facility] Work Phone: Monocytes/100 WBC (Bld) 9 % Normal [facility]; [facility] Work Phone: Neutrophils (Bld) [#/Vol] 4.7 10*3/uL Normal 1.4-7.0 [facility]; [facility] Work Phone: Neutrophils/100 WBC (Bld) 61 % Normal [facility]; [facility] Work Phone: Platelets (Bld) [#/Vol] 156 10*3/uL Normal 150-450 [facility]; [facility] Work Phone: RBC (Bld) [#/Vol] 5.00 10*6/uL Normal 3.77-5.28 [facility]; [facility] Work Phone: WBC (Bld) [#/Vol] 7.7 10*3/uL Normal 3.4-10.8 [facility]; [facility] Work Phone: LIPID PANEL ([id number])Ordered B y: Supervisor Gas Meter Repair on 09-16-2021 Cholesterol [Mass/Vol] 155 mg/dL Normal 100-199 [facility]; [facility] Work Phone: Cholesterol in HDL [Mass/Vol] 42 mg/dL Normal [facility]; [facility] Work Phone: Triglyceride [Mass/Vol] 89 mg/dL Normal 0-149 [facility]; [facility] Work Phone: LIPID PANEL ([id number]) 17 mg/dL Normal 5-40 [facility]; [facility] Work Phone: LIPID PANEL ([id number]) 96 mg/dL Normal 0-99 [facility]; [facility] Work Phone: LIPID PANEL (43180) 2.3 {ratio} Normal 0.0-3.2 [facility] Internal Medicine; [facility] Medicine Work Phone: Metabolic Panel, Comprehensi ve ([id number])Ordered By: Supervisor Gas Meter Repair on 09-16-2021 Albumin [Mass/Vol] 4.0 g/dL Normal 3.7-4.7 [facility] Internal Medicine; [facility] Work Phone: Albumin/Globulin [Mass ratio] 1.5 {ratio} Normal 1.2-2.2 [facility]; [facility] Work Phone: ALP [Catalytic activity/Vol] 83 U/L Normal 44-121 [facility]; [facility] Work Phone: ALT [Catalytic activity/Vol] 11 U/L Normal 0-32 [facility]; [facility] Work Phone: AST [Catalytic activity/Vol] 18 U/L Normal 0-40 [facility]; [facility] Work Phone: Bilirubin [Mass/Vol] 0.3 mg/dL Normal 0.0-1.2 [facility] Internal Medicine; [facility] Internal [facility] Work Phone: Calcium [Mass/Vol] 9.0 mg/dL Normal 8.7-10.3 [facility] Internal Medicine; [facility] Internal Medicine Work Phone: Chloride [Moles/Vol] 107 mmol/L Abnormal 96-106 [facility]; [facility] Work Phone: CO2 [Moles/Vol] 20 mmol/L Normal 20-29 [facility]; [facility] Internal Medicine Work Phone: Creatinine [Mass/Vol] 1.27 mg/dL Abnormal 0.57-1.00 [facility] Internal Medicine; [facility] Internal Medicine Work Phone: Globulin (S) [Mass/Vol] 2.6 g/dL Normal 1.5-4.5 [facility]; [facility] Work Phone: Glucose [Mass/Vol] 91 mg/dL Normal 65-99 [facility]; [facility] Work Phone: Potassium [Moles/Vol] 4.5 mmol/L Normal 3.5-5.2 [facility] prehensive Internal Medicine; [facility] Work Phone: Protein [Mass/Vol] 6.6 g/dL Normal 6.0-8.5 [facility]; [facility] Work Phone: Sodium [Moles/Vol] 142 mmol/L Normal 134-144 [facility]; [facility] Work Phone: Urea nitrogen [Mass/Vol] 21 mg/dL Normal 8-27 [facility]; [facility] Work Phone: Urea nitrogen/Creatinine [Mass ratio] 17 mg/mg Normal 12-28 [facility] Internal [facility]; [facility] Internal [facility] Work Phone: Metabolic Panel, Comprehensive ([id number]) 44 mL/min/1.73 Abnormal Comprehens [facility] Internal [facility]; [facility] Internal Medicine Work Phone: TSH ([id number])Ordered By: Syste m Nurses' Registry Director on 09-16-2021 TSH Qn 2.020 {uIU/mL} Normal 0.450-4.50 0 [facility] Internal Medicine; [facility] Internal [facility] Work Phone: Metabolic Panel, Comprehensi ve ([id number])Ordered By: Supervisor [employer] Meter Rep[employer] on 12-24-2020 Albumin [Mass/Vol] 4.4 g/dL Normal 3.7-4.7 [facility] Internal Medicine; [facility] Internal Medicine Work Phone: Albumin/Globulin [Mass ratio] 1.7 {ratio} Normal 1.2-2.2 [facility] Internal [facility]; [facility] Internal [facility] Work Phone: ALP [Catalytic activity/Vol] 88 U/L Normal 44-121 [facility]; [facility] Work Phone: ALT [Catalytic activity/Vol] 14 U/L Normal 0-32 [facility]; [facility] Work Phone: AST [Catalytic activity/Vol] 15 U/L Normal 0-40 [facility]; [facility] Work Phone: Bilirubin [Mass/Vol] 0.2 mg/dL Normal 0.0-1.2 [facility] Internal Medicine; [facility] Internal [facility] Work Phone: Calcium [Mass/Vol] 9.2 mg/dL Normal 8.7-10.3 [facility] Internal Medicine; [facility] Internal Medicine Work Phone: Chloride [Moles/Vol] 106 mmol/L Normal 96-106 [facility] Internal Medicine; [facility] Internal Medicine Work Phone: CO2 [Moles/Vol] 21 mmol/L Normal 20-29 [facility] Internal Medicine; [facility] Internal [facility] Work Phone: Creatinine [Mass/Vol] 1.14 mg/dL Abnormal 0.57-1.00 [facility] Internal [facility]; [facility] Internal Medicine Work Phone: GFR/1.73 sq M.predicted among blacks CKD-EPI (S/P/Bld) [Vol rate/Area] 55 mL/min/1.73 Abnormal [facility]; [facility] Work Phone: GFR/1.73 sq M.predicted among non-blacks CKD-EPI (S/P/Bld) [Vol rate/Area] 47 mL/min/1.73 Abnormal [facility] Internal [facility]; [facility] Work Phone: Globulin (S) [Mass/Vol] 2.6 g/dL Normal 1.5-4.5 [facility] Internal [facility]; [facility] Internal [facility] Work Phone: Glucose [Mass/Vol] 85 mg/dL Normal 65-99 [facility] Internal [facility]; [facility] Internal [facility] Work Phone: Potassium [Moles/Vol] 4.6 mmol/L Normal 3.5-5.2 [facility] Internal Medicine; [facility] Internal Medicine Work Phone: Protein [Mass/Vol] 7.0 g/dL Normal 6.0-8.5 [facility] Internal Medicine; [facility] Internal Medicine Work Phone: Sodium [Moles/Vol] 142 mmol/L Normal 134-144 [facility]; [facility] Work Phone: Urea nitrogen [Mass/Vol] 17 mg/dL Normal 8-27 [facility]; [facility] Work Phone: Urea nitrogen/Creatinine [Mass ratio] 15 mg/mg Normal 12-28 [facility]; [facility] Work Phone: CALCIFEDIOL ([id number])Ordered B y: Supervisor [employer] Meter Rep[employer] on 09-07-2020 25-hydroxyvitamin D [Mass/Vol] 50.0 ng/mL Normal 30.0-100.0 [facility]; [facility] Work Phone: CBC, PLATELETS & MANUAL DIFF ([id number])Ordered By: Supervisor [employer] Meter Repair on 09-07-2020 Basophils (Bld) [#/Vol] 0.0 10*3/uL Normal 0.0-0.2 [facility]; [facility] Work Phone: Basophils/100 WBC (Bld) 0 % Normal [facility]; [facility] Work Phone: Eosinophils (Bld) [#/Vol] 0.1 10*3/uL Normal 0.0-0.4 [facility]; [facility] Work Phone: Eosinophils/100 WBC (Bld) 1 % Normal [facility]; [facility] Work Phone: Erythrocyte distribution width (RBC) [Ratio] 13.7 % Normal 11.7-15.4 [facility]; [facility] Work Phone: Hematocrit (Bld) [Volume fraction] 47.4 % Abnormal 34.0-46.6 [facility]; [facility] Work Phone: Hemoglobin (Bld) [Mass/Vol] 15.5 g/dL Normal 11.1-15.9 [facility]; [facility] Work Phone: Immature granulocytes (Bld) [#/Vol] 0.0 10*3/uL Normal 0.0-0.1 [facility]; [facility] Work Phone: Immature granulocytes/100 WBC (Bld) 0 % Normal [facility]; [facility] Work Phone: Lymphocytes (Bld) [#/Vol] 1.7 10*3/uL Normal 0.7-3.1 [facility]; [facility] Work Phone: Lymphocytes/100 WBC (Bld) 25 % Normal [facility]; [facility] Work Phone: MCH (RBC) [Entitic mass] 27.9 pg Normal 26.6-33.0 [facility]; [facility] Work Phone: MCHC (RBC) [Mass/Vol] 32.7 g/dL Normal 31.5-35.7 [facility] prehensive Internal Medicine; [facility] Work Phone: MCV (RBC) [Entitic vol] 85 fL Normal 79-97 [facility]; [facility] Work Phone: Monocytes (Bld) [#/Vol] 0.5 10*3/uL Normal 0.1-0.9 [facility]; [facility] Work Phone: Monocytes/100 WBC (Bld) 7 % Normal [facility]; [facility] Work Phone: Neutrophils (Bld) [#/Vol] 4.5 10*3/uL Normal 1.4-7.0 [facility]; [facility] Work Phone: Neutrophils/100 WBC (Bld) 67 % Normal [facility]; [facility] Work Phone: Platelets (Bld) [#/Vol] 137 10*3/uL Abnormal 150-450 [facility]; [facility] Work Phone: RBC (Bld) [#/Vol] 5.55 10*6/uL Abnormal 3.77-5.28 [facility] ehensive Internal Medicine; [facility] Work Phone: WBC (Bld) [#/Vol] 6.8 10*3/uL Normal 3.4-10.8 [facility]; [facility] Work Phone: LIPID PANEL ([id number])Ordered B y: Supervisor Gas Meter Repair on 09-07-2020 Cholesterol [Mass/Vol] 168 mg/dL Normal 100-199 [facility]; [facility] Internal [facility] Work Phone: Cholesterol in HDL [Mass/Vol] 42 mg/dL Normal [facility] Internal [facility]; [facility] Work Phone: Triglyceride [Mass/Vol] 129 mg/dL Normal 0-149 [facility]; [facility] Internal Medicine Work Phone: LIPID PANEL ([id number]) 23 mg/dL Normal 5-40 [facility] Internal [facility]; [facility] Work Phone: LIPID PANEL (25953) 103 mg/dL Abnormal 0-99 [facility] Internal Medicine; [facility] Internal Medicine Work Phone: LIPID PANEL (60490) 2.5 {ratio} Normal 0.0-3.2 [facility] Internal Medicine; [facility] Internal Medicine Work Phone: METABOLIC PANEL, COMPREHENSI VE ([id number])Ordered By: Supervisor Gas Meter Repair on 09-07-2020 Albumin [Mass/Vol] 4.3 g/dL Normal 3.7-4.7 [facility] Internal Medicine; [facility] Internal Medicine Work Phone: Albumin/Globulin [Mass ratio] 1.4 {ratio} Normal 1.2-2.2 [facility]; [facility] Internal [facility] Work Phone: ALP [Catalytic activity/Vol] 108 U/L Normal 48-121 [facility]; [facility] Work Phone: ALT [Catalytic activity/Vol] 10 U/L Normal 0-32 [facility]; [facility] Work Phone: AST [Catalytic activity/Vol] 15 U/L Normal 0-40 [facility] Internal [facility]; [facility] Internal [facility] Work Phone: Bilirubin [Mass/Vol] 0.4 mg/dL Normal 0.0-1.2 [facility] Internal Medicine; [facility] Work Phone: Calcium [Mass/Vol] 9.4 mg/dL Normal 8.7-10.3 [facility] Internal [facility]; [facility] Internal Medicine Work Phone: Chloride [Moles/Vol] 105 mmol/L Normal 96-106 [facility]; [facility] Work Phone: CO2 [Moles/Vol] 21 mmol/L Normal 20-29 [facility]; [facility] Work Phone: Creatinine [Mass/Vol] 1.25 mg/dL Abnormal 0.57-1.00 [facility] Internal [facility]; [facility] Work Phone: GFR/1.73 sq M.predicted among blacks CKD-EPI (S/P/Bld) [Vol rate/Area] 49 mL/min/1.73 Abnormal [facility]; [facility] Work Phone: GFR/1.73 sq M.predicted among non-blacks CKD-EPI (S/P/Bld) [Vol rate/Area] 42 mL/min/1.73 Abnormal [facility]; [facility] Work Phone: Globulin (S) [Mass/Vol] 3.0 g/dL Normal 1.5-4.5 [facility]; [facility] Work Phone: Glucose [Mass/Vol] 103 mg/dL Abnormal 65-99 [facility] Internal [facility]; [facility] Work Phone: Potassium [Moles/Vol] 4.6 mmol/L Normal 3.5-5.2 [facility]; [facility] Work Phone: Protein [Mass/Vol] 7.3 g/dL Normal 6.0-8.5 [facility]; [facility] Work Phone: Sodium [Moles/Vol] 140 mmol/L Normal 134-144 [facility]; [facility] Work Phone: Urea nitrogen [Mass/Vol] 19 mg/dL Normal 8-27 [facility]; [facility] Work Phone: Urea nitrogen/Creatinine [Mass ratio] 15 mg/mg Normal 12-28 [facility]; [facility] Work Phone: HEPATITIS C ANTIBODY ([id number]) Ordered By: Supervisor Gas Meter Repair on 2020 HCV Ab Signal/Cutoff IA [Rel units/Vol] {ratio} Normal 0.0-0.9 [facility]; [facility] Work Phone: Comment on above: Negative: < 0.8 Inde terminate: 0.8 - 0.9 Positive: > 0.9 . The CDC recommends that a positive HCV antibody result be followed up with a HCV Nucleic Acid Amplification test (953741). PATIENT NOT FASTINGP ERFORMED BY: VENTURA [facility] [id number] HCV Ab Signal/Cutoff IA [Rel units/Vol] {ratio} Normal 0.0-0.9 [facility]; [facility] Work Phone: LIPID PANEL ([id number])Ordered B y: Supervisor Gas Meter Repair on 01-09-2020 Cholesterol [Mass/Vol] 230 mg/dL Abnormal 100-199 [facility] Internal Medicine Work Phone: Comment on above: PATIENT WAS FASTINGP ERFORMED BY: VENTURA [employer]reyna EngTechNowVidant [facility] [id number] Cholesterol in HDL [Mass/Vol] 42 mg/dL Normal [facility] Work Phone: Comment on above: PATIENT WAS FASTINGP ERFORMED BY: VENTURA [employer] [facility]carereyna EngTechNowV[facility] [id number] Cholesterol in LDL/Cholesterol in HDL [Mass ratio] 4.0 {ratio} Abnormal 0.0-3.2 [facility] Work Phone: Comment on above: LDL/HDL Ratio Men Wo men 1/2 Avg.Risk 1.0 1.5 Avg.Risk 3.6 3.2 2X Avg.Risk 6.2 5.0 3X Avg.Risk 8.0 6.1 PATIENT WAS FASTINGP ERFORMED BY: VENTURA [employer]70 M87[facility] [id number] Triglyceride [Mass/Vol] 111 mg/dL Normal 0-149 [facility] Work Phone: Comment on above: PATIENT WAS FASTINGP ERFORMED BY: VENTURA [employer]70 M87[facility] [id number] LIPID PANEL ([id number]) 168 mg/dL Abnormal 0-99 [facility] Work Phone: Comment on above: PATIENT WAS FASTINGP ERFORMED BY: VENTURA [employer] [id number] [address]e RoadDublin [place] [id number] LIPID PANEL (47059) 20 mg/dL Normal 5-40 [facility] Internal Medicine Work Phone: Comment on above: PATIENT WAS FASTINGP ERFORMED BY: VENTURA [facility] [id number] [address] RoadDublin [place] [id number] LIPID PANEL (42566) 4.0 {ratio} Abnormal 0.0-3.2 [facility]; [facility] Work Phone: Metabolic Panel, Comprehensi ve ([id number])Ordered By: Supervisor Gas Meter Repair on 01-09-2020 Albumin [Mass/Vol] 4.4 g/dL Normal 3.7-4.7 [facility] Internal Medicine Work Phone: Comment on above: PATIENT WAS FASTINGP ERFORMED BY: VENTURA [facility] [id number] [address]e RoadDublin [place] [id number] Albumin/Globulin [Mass ratio] 1.6 {ratio} Normal 1.2-2.2 [facility] Internal Medicine Work Phone: Comment on above: PATIENT WAS FASTINGP ERFORMED BY: VENTURA [facility] [id number] [address]e RoadDublin [place] [id number] ALP [Catalytic activity/Vol] 107 [iU]/L Normal 39-117 [facility] Work Phone: Comment on above: PATIENT WAS FASTINGP ERFORMED BY: [facility] [id number] [address]Dublin [place] [id number] ALP [Catalytic activity/Vol] 107 U/L Normal 39-117 [facility]; [facility] Work Phone: ALT [Catalytic activity/Vol] 11 [iU]/L Normal 0-32 [facility] Work Phone: Comment on above: PATIENT WAS FASTINGP ERFORMED BY: [facility] [id number] [address]Dublin [place] [id number] ALT [Catalytic activity/Vol] 11 U/L Normal 0-32 [facility] Internal Medicine; [facility] Internal Medicine Work Phone: AST [Catalytic activity/Vol] 13 [iU]/L Normal 0-40 [facility] Internal Medicine Work Phone: Comment on above: PATIENT WAS FASTINGP ERFORMED BY: CB [facility] [id number] [address]e RoadDublin [place] [id number] AST [Catalytic activity/Vol] 13 U/L Normal 0-40 [facility] Internal Medicine; [facility] Internal Medicine Work Phone: Bilirubin [Mass/Vol] 0.3 mg/dL Normal 0.0-1.2 [facility] Work Phone: Comment on above: PATIENT WAS FASTINGP ERFORMED BY: CB [facility] [id number] [address]Dublin [place] [id number] Calcium [Mass/Vol] 9.4 mg/dL Normal 8.7-10.3 [facility] Internal Medicine Work Phone: Comment on above: PATIENT WAS FASTINGP ERFORMED BY: [facility] [id number] [address]Dublin [place] [id number] Chloride [Moles/Vol] 104 mmol/L Normal 96-106 [facility] Internal Medicine Work Phone: Comment on above: PATIENT WAS FASTINGP ERFORMED BY: [facility] [id number] [address]Dublin [place] [id number] CO2 [Moles/Vol] 21 mmol/L Normal 20-29 [facility] Internal Medicine Work Phone: Comment on above: PATIENT WAS FASTINGP ERFORMED BY: CB [facility] [id number] [address]Dublin [place] [id number] Creatinine [Mass/Vol] 1.33 mg/dL Abnormal 0.57-1.00 [facility] Internal Medicine Work Phone: Comment on above: PATIENT WAS FASTINGP ERFORMED BY: CB [facility] [id number] [address]Dublin [place] [id number] GFR/1.73 sq M predicted among blacks CKD-EPI (S/P/Bld) [Vol rate/Area] 46 mL/min/1.73 Abnormal [facility] Work Phone: Comment on above: PATIENT WAS FASTINGP ERFORMED BY: VENTURA [facility] [id number] [address]Dublin [place] [id number] GFR/1.73 sq M predicted among non-blacks CKD-EPI (S/P/Bld) [Vol rate/Area] 40 mL/min/1.73 Abnormal [facility] Work Phone: Comment on above: PATIENT WAS FASTINGP ERFORMED BY: VENTURA [facility] [id number] [address]Dublin [place] [id number] Globulin (S) [Mass/Vol] 2.8 g/dL Normal 1.5-4.5 [facility] Internal Medicine Work Phone: Comment on above: PATIENT WAS FASTINGP ERFORMED BY: VENTURA [facility] [id number] Foot[address] Roadblin [place] [id number] Glucose [Mass/Vol] 111 mg/dL Abnormal 65-99 [facility] Internal Medicine Work Phone: Comment on above: PATIENT WAS FASTINGP ERFORMED BY: VENTURA [facility] [id number] [facility] Centerin [place] [id number] Potassium [Moles/Vol] 4.4 mmol/L Normal 3.5-5.2 [facility] Internal Medicine Work Phone: Comment on above: PATIENT WAS FASTINGP ERFORMED BY: [facility] [id number] [address] RoadDublin [place] [id number] Protein [Mass/Vol] 7.2 g/dL Normal 6.0-8.5 [facility] Internal Medicine Work Phone: Comment on above: PATIENT WAS FASTINGP ERFORMED BY: [facility] [id number] [address] RoadDublin [place] [id number] Sodium [Moles/Vol] 139 mmol/L Normal 134-144 [facility] Internal Medicine Work Phone: Comment on above: PATIENT WAS FASTINGP ERFORMED BY: [facility] [id number] [address]Dublin [place] [id number] Urea nitrogen [Mass/Vol] 19 mg/dL Normal 8-27 [facility] Work Phone: Comment on above: PATIENT WAS FASTINGP ERFORMED BY: VENTURA Salter6370 [facility] [id number] Urea nitrogen/Creatinine [Mass ratio] 14 mg/mg Normal 12-28 [facility] Work Phone: Comment on above: PATIENT WAS FASTINGP ERFORMED BY: [facility] Wqcvin9414 [facility] [id number] CALCIFEDIOL ([id number])Ordered B y: Supervisor Gas Meter Repair on 01-24-2019 25-Hydroxyvitamin D2+25-Hydroxyvitamin D3 [Mass/Vol] 70.4 ng/mL Normal 30.0-100.0 [facility] Work Phone: Comment on above: Vitamin D deficiency has been defined by the [place] [facility] and an Endocrine Society practice guideline as alevel of serum 25-OH vitamin D less than 20 ng/mL (1,2).The Endocrine Society went on to further define vitamin Dinsufficiency as a level between 21 and 29 ng/mL (2).1. IOM ([place] of Medicine). 2010. Dietary reference intakes for calcium and D. [place]: The National Academies Press.2. Radu MF, Mary NC, Samy UMANA, et al. Evaluation, treatment, and prevention of vitamin D deficiency: an Endocrine Society clinical practice guideline. JCEM. 2010; 96(7):1911-30. PATIENT WAS FASTINGP ERFORMED BY: [employer] Jnncuc3362 [facility] [id number] CBC, Platelets & Auto Diff ( [id number])Ordered By: Supervisor Gas Meter Repair on 01-24-2019 Basophils (Bld) [#/Vol] 0.0 {x10E3/uL} Normal 0.0-0.2 [facility] Work Phone: Comment on above: PATIENT WAS FASTINGP ERFORMED BY: VENTURA [employer] Mrorop8010 [facility] [id number] Basophils (Bld) [#/Vol] 0.0 10*3/uL Normal 0.0-0.2 [facility]; [facility] Work Phone: Basophils/100 WBC (Bld) 0 % Normal [facility] Work Phone: Comment on above: PATIENT WAS FASTINGP ERFORMED BY: VENTURA [facility] Crppbq9694 [address] RoadDublin [place] [id number] Eosinophils (Bld) [#/Vol] 0.1 {x10E3/uL} Normal 0.0-0.4 [facility] Work Phone: Comment on above: PATIENT WAS FASTINGP ERFORMED BY: [facility] Gvehsm2624 [address] [place] [id number] Eosinophils (Bld) [#/Vol] 0.1 10*3/uL Normal 0.0-0.4 [facility]; [facility] Work Phone: Eosinophils/100 WBC (Bld) 1 % Normal [facility] Work Phone: Comment on above: PATIENT WAS FASTINGP ERFORMED BY: [facility] Zvreii[address] [facility] [id number] Erythrocyte distribution width (RBC) [Ratio] 14.0 % Normal 12.3-15.4 [facility] Work Phone: Comment on above: PATIENT WAS FASTINGP ERFORMED BY: [facility] Czjxqz5[address] [facility] Centerin [place] [id number] Hematocrit (Bld) [Volume fraction] 44.1 % Normal 34.0-46.6 [facility] Work Phone: Comment on above: PATIENT WAS FASTINGP ERFORMED BY: [facility] Yemwkr9598 [address] RoadAtrium Health Harrisburgin [place] [id number] Hemoglobin (Bld) [Mass/Vol] 15.1 g/dL Normal 11.1-15.9 [facility] Work Phone: Comment on above: PATIENT WAS FASTINGP ERFORMED BY: [facility] Nemgda3623 [address] RoadDublin [place] [id number] Immature granulocytes (Bld) [#/Vol] 0.0 {x10E3/uL} Normal 0.0-0.1 [facility] Work Phone: Comment on above: PATIENT WAS FASTINGP ERFORMED BY: VENTURA LabM[facility]6370 [facility] [id number] Immature granulocytes (Bld) [#/Vol] 0.0 10*3/uL Normal 0.0-0.1 [facility]; [facility] Work Phone: Immature granulocytes/100 WBC (Bld) 0 % Normal [facility] Work Phone: Comment on above: PATIENT WAS FASTINGP ERFORMED BY: VENTURA [facility] Zfxnbm2347 [facility] [id number] Lymphocytes (Bld) [#/Vol] 1.7 {x10E3/uL} Normal 0.7-3.1 [facility] Work Phone: Comment on above: PATIENT WAS FASTINGP ERFORMED BY: VENTURA [facility] Txndnb6138 [facility] [id number] Lymphocytes (Bld) [#/Vol] 1.7 10*3/uL Normal 0.7-3.1 [facility]; [facility] Work Phone: Lymphocytes/100 WBC (Bld) 22 % Normal [facility] Work Phone: Comment on above: PATIENT WAS FASTINGP ERFORMED BY: VENTURA [facility] Edbqys6269 [facility] [id number] MCH (RBC) [Entitic mass] 30.1 pg Normal 26.6-33.0 [facility] Internal Medicine Work Phone: Comment on above: PATIENT WAS FASTINGP ERFORMED BY: LabMcl[facility]6370 [facility] [id number] MCHC (RBC) [Mass/Vol] 34.2 g/dL Normal 31.5-35.7 [facility] Internal Medicine Work Phone: Comment on above: PATIENT WAS FASTINGP ERFORMED BY: LabMcl[facility] Region6370 [facility] [id number] MCV (RBC) [Entitic vol] 88 fL Normal 79-97 [facility] Work Phone: Comment on above: PATIENT WAS FASTINGP ERFORMED BY: VENTURA LabCoreyna GalvanAilijp7849 [address] RoadDublin [place] [id number] Monocytes (Bld) [#/Vol] 0.7 {x10E3/uL} Normal 0.1-0.9 [facility] Work Phone: Comment on above: PATIENT WAS FASTINGP ERFORMED BY: VENTURA [facility] Uurste9592 [address]Dublin [place] [id number] Monocytes (Bld) [#/Vol] 0.7 10*3/uL Normal 0.1-0.9 [facility]; [facility] Work Phone: Monocytes/100 WBC (Bld) 9 % Normal [facility] Work Phone: Comment on above: PATIENT WAS FASTINGP ERFORMED BY: VENTURA LabLizette GalvanEjberq6506 [address]Dublin [place] [id number] Neutrophils (Bld) [#/Vol] 5.2 {x10E3/uL} Normal 1.4-7.0 [facility] Work Phone: Comment on above: PATIENT WAS FASTINGP ERFORMED BY: VENTURA LabLizette GalvanEezewi6086 [address] RoadDublin [place] [id number] Neutrophils (Bld) [#/Vol] 5.2 10*3/uL Normal 1.4-7.0 [facility]; [facility] Work Phone: Neutrophils/100 WBC (Bld) 68 % Normal [facility] Work Phone: Comment on above: PATIENT WAS FASTINGP ERFORMED BY: VENTURA [facility] Qvsrqt2821 [address] RoadDublin [place] [id number] Platelets (Bld) [#/Vol] 140 {x10E3/uL} Abnormal 150-450 [facility] Work Phone: Comment on above: PATIENT WAS FASTINGP ERFORMED BY: VENTURA [facility] Gcvqld6707 [address] RoadDublin [place] [id number] Platelets (Bld) [#/Vol] 140 10*3/uL Abnormal 150-450 [facility]; [facility] Work Phone: RBC (Bld) [#/Vol] 5.02 {x10E6/uL} Normal 3.77-5.28 [facility] Work Phone: Comment on above: PATIENT WAS FASTINGP ERFORMED BY: CB [facility] Ntkdjz9486 [address] RoadDuin [place] [id number] RBC (Bld) [#/Vol] 5.02 10*6/uL Normal 3.77-5.28 [facility] Internal Medicine; [facility] Work Phone: WBC (Bld) [#/Vol] 7.8 {x10E3/uL} Normal 3.4-10.8 [facility] Internal Medicine Work Phone: Comment on above: PATIENT WAS FASTINGP ERFORMED BY: VENTURA LabTracsisrp Vfulyw[address] [facility]StatFirst[facility] [id number] WBC (Bld) [#/Vol] 7.8 10*3/uL Normal 3.4-10.8 [facility] Internal Medicine; [facility] Work Phone: LIPID PANEL ([id number])Ordered B y: Supervisor Gas Meter Repair on 01-24-2019 Cholesterol [Mass/Vol] 181 mg/dL Normal 100-199 [facility] Internal Medicine Work Phone: Comment on above: PATIENT WAS FASTINGP ERFORMED BY: VENTURA LabTracsisrp Gcbymk8[address] [facility] PharmStatFirst[facility] [id number] Cholesterol in HDL [Mass/Vol] 44 mg/dL Normal [facility] Work Phone: Comment on above: PATIENT WAS FASTINGP ERFORMED BY: CB [facility] Rjhncm7[address] AHS PharmStatDuin [place] [id number] Cholesterol in LDL [Mass/Vol] 117 mg/dL Abnormal 0-99 [facility] Work Phone: Comment on above: PATIENT WAS FASTINGP ERFORMED BY: CB LabTracsisrp Urmcwq3825 [address] [facility] PharmStatAtrium Health Harrisburgin [place] [id number] Cholesterol in LDL/Cholesterol in HDL [Mass ratio] 2.7 {ratio} Normal 0.0-3.2 [facility] Work Phone: Comment on above: LDL/HDL Ratio Men Wo men 1/2 Avg.Risk 1.0 1.5 Avg.Risk 3.6 3.2 2X Avg.Risk 6.2 5.0 3X Avg.Risk 8.0 6.1 PATIENT WAS FASTINGP ERFORMED BY: CB [facility] Mqeqer2692 [address]Dublin [place] [id number] Cholesterol in VLDL [Mass/Vol] 20 mg/dL Normal 5-40 [facility] Work Phone: Comment on above: PATIENT WAS FASTINGP ERFORMED BY: CB [facility] Bicwfx5837 [address] RoadDublin [place] [id number] Triglyceride [Mass/Vol] 101 mg/dL Normal 0-149 [facility] Work Phone: Comment on above: PATIENT WAS FASTINGP ERFORMED BY: CB [facility] Qpdqet9[address] [facility] Hospitalblin [place] [id number] Metabolic Panel, Comprehensi ve ([id number])Ordered By: Supervisor Gas Meter Repair on 01-24-2019 Albumin [Mass/Vol] 4.7 g/dL Normal 3.5-4.8 [facility] Internal Medicine Work Phone: Comment on above: PATIENT WAS FASTINGP ERFORMED BY: CB [facility] Krjjzw8553 [address] RoadDublin [place] [id number] Albumin/Globulin [Mass ratio] 2.0 {ratio} Normal 1.2-2.2 [facility] Work Phone: Comment on above: PATIENT WAS FASTINGP ERFORMED BY: CB [facility] Oepiym8430 [address] RoadDublin [place] [id number] ALP [Catalytic activity/Vol] 105 [iU]/L Normal 39-117 [facility] Work Phone: Comment on above: PATIENT WAS FASTINGP ERFORMED BY: CB [facility] Radfpk2692 [address]Dublin [place] [id number] ALP [Catalytic activity/Vol] 105 U/L Normal 39-117 [facility]; [facility] Work Phone: ALT [Catalytic activity/Vol] 16 [iU]/L Normal 0-32 [facility] Work Phone: Comment on above: PATIENT WAS FASTINGP ERFORMED BY: CB [facility] Tswcqw4036 [address] RoadDublin [place] [id number] ALT [Catalytic activity/Vol] 16 U/L Normal 0-32 [facility]; [facility] Internal Medicine Work Phone: AST [Catalytic activity/Vol] 20 [iU]/L Normal 0-40 [facility] Internal Medicine Work Phone: Comment on above: PATIENT WAS FASTINGP ERFORMED BY: CB [facility] Yyenru0982 [address] RoadDublin [place] [id number] AST [Catalytic activity/Vol] 20 U/L Normal 0-40 [facility] Internal Medicine; [facility] Internal Medicine Work Phone: Bilirubin [Mass/Vol] 0.4 mg/dL Normal 0.0-1.2 [facility]erens[facility] Internal [facility] Work Phone: Comment on above: PATIENT WAS FASTINGP ERFORMED BY: CB [facility] Wfggbm6060 [address]Dublin [place] [id number] Calcium [Mass/Vol] 9.6 mg/dL Normal 8.7-10.3 [facility] Internal Medicine Work Phone: Comment on above: PATIENT WAS FASTINGP ERFORMED BY: CB [facility] Qlmdyu6354 [address]Dublin [place] [id number] Chloride [Moles/Vol] 105 mmol/L Normal 96-106 [facility]erens[facility] Internal Medicine Work Phone: Comment on above: PATIENT WAS FASTINGP ERFORMED BY: CB [facility] Dwsvjo7240 [address]Dublin [place] [id number] CO2 [Moles/Vol] 19 mmol/L Abnormal 20-29 [facility] Internal Medicine Work Phone: Comment on above: PATIENT WAS FASTINGP ERFORMED BY: CB [facility] Leiiag2308 [address] RoadDublin [place] [id number] Creatinine [Mass/Vol] 1.09 mg/dL Abnormal 0.57-1.00 [facility] Work Phone: Comment on above: PATIENT WAS FASTINGP ERFORMED BY: CB [facility] Bppmmf2836 [address] RoadDublin [place] [id number] GFR/1.73 sq M predicted among blacks CKD-EPI (S/P/Bld) [Vol rate/Area] 59 mL/min/1.73 Abnormal [facility] Work Phone: Comment on above: PATIENT WAS FASTINGP ERFORMED BY: CB [facility] Fdhgkx3084 [address] RoadDublin [place] [id number] GFR/1.73 sq M predicted among non-blacks CKD-EPI (S/P/Bld) [Vol rate/Area] 51 mL/min/1.73 Abnormal [facility] Work Phone: Comment on above: PATIENT WAS FASTINGP ERFORMED BY: [facility] Knwwcm6241 [address]Dublin [place] [id number] Globulin (S) [Mass/Vol] 2.4 g/dL Normal 1.5-4.5 [facility] Internal Medicine Work Phone: Comment on above: PATIENT WAS FASTINGP ERFORMED BY: [facility] Xwyvmq6861 [address]Dublin [place] [id number] Glucose [Mass/Vol] 88 mg/dL Normal 65-99 [facility] Internal Medicine Work Phone: Comment on above: PATIENT WAS FASTINGP ERFORMED BY: [facility] Rchmmv6010 [address]Dublin [place] [id number] Potassium [Moles/Vol] 4.6 mmol/L Normal 3.5-5.2 [facility] Internal Medicine Work Phone: Comment on above: PATIENT WAS FASTINGP ERFORMED BY: CB [facility] Myswgg7342 [address]Dublin [place] [id number] Protein [Mass/Vol] 7.1 g/dL Normal 6.0-8.5 [facility] Internal Medicine Work Phone: Comment on above: PATIENT WAS FASTINGP ERFORMED BY: CB [facility] Banhld0905 [address] RoadDublin [place] [id number] Sodium [Moles/Vol] 144 mmol/L Normal 134-144 [facility] Internal Medicine Work Phone: Comment on above: PATIENT WAS FASTINGP ERFORMED BY: [employer] Kvemik0953 [facility] [id number] Urea nitrogen [Mass/Vol] 15 mg/dL Normal 8-27 [facility] Work Phone: Comment on above: PATIENT WAS FASTINGP ERFORMED BY: [employer] Cdclyp8366 [facility] [id number] Urea nitrogen/Creatinine [Mass ratio] 14 mg/mg Normal 12-28 [facility] Work Phone: Comment on above: PATIENT WAS FASTINGP ERFORMED BY: [employer] Zlndsb7842 [facility] [id number] CALCIFEDIOL ([id number])Ordered B y: Supervisor Gas Meter Repair on 05-10-2018 25-Hydroxyvitamin D2+25-Hydroxyvitamin D3 mass conc 33.5 ng/mL Normal 30.0-100.0 [facility] Work Phone: Comment on above: Vitamin D deficiency has been defined by the [place] ofMedicine and an Endocrine Society practice guideline as alevel of serum 25-OH vitamin D less than 20 ng/mL (1,2).The Endocrine Society went on to further define vitamin Dinsufficiency as a level between 21 and 29 ng/mL (2).1. IOM ([place] of Medicine). 2010. Dietary reference intakes for calcium and D. [place]: The National Academies Press.2. Radu MF, Mary [place], Samy UMANA, et al. Evaluation, treatment, and prevention of vitamin D deficiency: an Endocrine Society clinical practice guideline. JCEM. 2010; 96(7):1911-30. PATIENT NOT FASTINGP ERFORMED BY: [employer] Jhscqq8645 [facility] [id number] CBC, Platelets & Auto Diff ( [id number])Ordered By: Supervisor Gas Meter Repair on 05-10-2018 Basophils #/vol (Bld) 0.0 {x10E3/uL} Normal 0.0-0.2 [facility] Work Phone: Comment on above: PATIENT NOT FASTINGP ERFORMED BY: VENTURA Galvanlin6370 [facility] [id number] Basophils (Bld) [#/Vol] 0.0 10*3/uL Normal 0.0-0.2 [facility]; [facility] Work Phone: Basophils/100 WBC (Bld) 0 % Normal [facility] Work Phone: Comment on above: PATIENT NOT FASTINGP ERFORMED BY: VENTURA Galvanlin6370 [facility] [id number] Eosinophils #/vol (Bld) 0.2 {x10E3/uL} Normal 0.0-0.4 [facility] Work Phone: Comment on above: PATIENT NOT FASTINGP ERFORMED BY: VENTURA Galvanlin6370 [facility] [id number] Eosinophils (Bld) [#/Vol] 0.2 10*3/uL Normal 0.0-0.4 [facility]; [facility] Work Phone: Eosinophils/100 WBC (Bld) 2 % Normal [facility] Work Phone: Comment on above: PATIENT NOT FASTINGP ERFORMED BY: VENTURA Galvanlin6370 [facility] [id number] Erythrocyte distribution width Ratio (RBC) 14.3 % Normal 12.3-15.4 [facility] Work Phone: Comment on above: PATIENT NOT FASTINGP ERFORMED BY: VENTURA [place] Sdsjij4495 [facility] [id number] Hematocrit Volume Fraction (Bld) 45.8 % Normal 34.0-46.6 [facility] Work Phone: Comment on above: PATIENT NOT FASTINGP ERFORMED BY: VENTURA Galvanlin6370 [facility] [id number] Hemoglobin mass conc (Bld) 15.3 g/dL Normal 11.1-15.9 [facility] Work Phone: Comment on above: PATIENT NOT FASTINGP ERFORMED BY: LabCoHackensack University Medical CenterYfyumf4865 [address] [facility] [id number] Immature granulocytes #/vol (Bld) 0.0 {x10E3/uL} Normal 0.0-0.1 [facility] Work Phone: Comment on above: PATIENT NOT FASTINGP ERFORMED BY: LabMcl[facility] Region6370 [address] [facility] [id number] Immature granulocytes (Bld) [#/Vol] 0.0 10*3/uL Normal 0.0-0.1 [facility]; [facility] Work Phone: Immature granulocytes/100 WBC (Bld) 0 % Normal [facility] Work Phone: Comment on above: PATIENT NOT FASTINGP ERFORMED BY: [facility] Gdutlj6247 [facility] [id number] Lymphocytes #/vol (Bld) 2.2 {x10E3/uL} Normal 0.7-3.1 [facility] Work Phone: Comment on above: PATIENT NOT FASTINGP ERFORMED BY: LabMclaren [facility] Region6370 [facility] [id number] Lymphocytes (Bld) [#/Vol] 2.2 10*3/uL Normal 0.7-3.1 [facility]; [facility] Work Phone: Lymphocytes/100 WBC (Bld) 27 % Normal [facility] Work Phone: Comment on above: PATIENT NOT FASTINGP ERFORMED BY: LabMclaren [facility] Region6370 [facility] [id number] MCH Entitic mass (RBC) 28.7 pg Normal 26.6-33.0 [facility]thens[facility] Internal Medicine Work Phone: Comment on above: PATIENT NOT FASTINGP ERFORMED BY: LabM[facility]6370 [facility] [id number] MCHC mass conc (RBC) 33.4 g/dL Normal 31.5-35.7 Comp [facility] centerensive Internal Medicine Work Phone: Comment on above: PATIENT NOT FASTINGP ERFORMED BY: VENTURA [facility] Aeukzk3563 [address] RoadDublin [place] [id number] MCV Entitic volume (RBC) 86 fL Normal 79-97 [facility] Work Phone: Comment on above: PATIENT NOT FASTINGP ERFORMED BY: VENTURA [facility] Mslxyf8441 [address] RoadDublin [place] [id number] Monocytes #/vol (Bld) 0.7 {x10E3/uL} Normal 0.1-0.9 [facility] Work Phone: Comment on above: PATIENT NOT FASTINGP ERFORMED BY: VENTURA [facility] Uhakfi8173 [address]e RoadAtrium Health Harrisburgin [place] [id number] Monocytes (Bld) [#/Vol] 0.7 10*3/uL Normal 0.1-0.9 [facility]; [facility] Work Phone: Monocytes/100 WBC (Bld) 9 % Normal [facility] Work Phone: Comment on above: PATIENT NOT FASTINGP ERFORMED BY: VENTURA [facility] Hbnhem4280 [address] RoadDuin [place] [id number] Neutrophils #/vol (Bld) 5.1 {x10E3/uL} Normal 1.4-7.0 [facility] Work Phone: Comment on above: PATIENT NOT FASTINGP ERFORMED BY: VENTURA [facility] Ldtlmg5880 [address] RoadDublin [place] [id number] Neutrophils (Bld) [#/Vol] 5.1 10*3/uL Normal 1.4-7.0 [facility]; [facility] Work Phone: Neutrophils/100 WBC (Bld) 62 % Normal [facility] Work Phone: Comment on above: PATIENT NOT FASTINGP ERFORMED BY: VENTURA [facility] Uuirwd0434 [address] RoadDublin [place] [id number] Platelets #/vol (Bld) 154 {x10E3/uL} Normal 150-379 [facility] Work Phone: Comment on above: PATIENT NOT FASTINGP ERFORMED BY: VENTURA LabMclaren Caro Region6370 [facility] [id number] Platelets (Bld) [#/Vol] 154 10*3/uL Normal 150-379 [facility]; [facility] Work Phone: RBC #/vol (Bld) 5.34 {x10E6/uL} Abnormal 3.77-5.28 Comp [facility] centerensive Internal Medicine Work Phone: Comment on above: PATIENT NOT FASTINGP ERFORMED BY: [facility] Yfbcyf6328 [facility] [id number] RBC (Bld) [#/Vol] 5.34 10*6/uL Abnormal 3.77-5.28 Compr ensive Internal Medicine; [facility] Work Phone: WBC #/vol (Bld) 8.2 {x10E3/uL} Normal 3.4-10.8 Compr [facility] Internal Medicine Work Phone: Comment on above: PATIENT NOT FASTINGP ERFORMED BY: GianfrancoMclaren Caro Region6370 [facility] [id number] WBC (Bld) [#/Vol] 8.2 10*3/uL Normal 3.4-10.8 Compre [facility] Internal Medicine; [facility] Work Phone: Metabolic Panel, Comprehensi ve ([id number])Ordered By: Supervisor Gas Meter Repair on 05-10-2018 Albumin mass conc 4.6 g/dL Normal 3.5-4.8 Compreh [facility] Internal Medicine Work Phone: Comment on above: PATIENT NOT FASTINGP ERFORMED BY: [facility]6370 [facility] [id number] Albumin/Globulin mass ratio 1.9 {ratio} Normal 1.2-2.2 [facility] Work Phone: Comment on above: PATIENT NOT FASTINGP ERFORMED BY: GianfrancoMclaren Caro Region6370 [facility] [id number] ALP [Catalytic activity/Vol] 107 U/L Normal 39-117 [facility]; [facility] Work Phone: ALP enzyme act/vol 107 [iU]/L Normal 39-117 [facility] Internal Medicine Work Phone: Comment on above: PATIENT NOT FASTINGP ERFORMED BY: VENTURA [facility] Cxsulc2128 [address]Dublin [place] [id number] ALT [Catalytic activity/Vol] 14 U/L Normal 0-32 [facility]; [facility] Internal Medicine Work Phone: ALT enzyme act/vol 14 [iU]/L Normal 0-32 [facility] Internal Medicine Work Phone: Comment on above: PATIENT NOT FASTINGP ERFORMED BY: VENTURA [facility] Tftvrx9273 [address] RoadDublin [place] [id number] AST [Catalytic activity/Vol] 16 U/L Normal 0-40 [facility]; [facility] Internal Medicine Work Phone: AST enzyme act/vol 16 [iU]/L Normal 0-40 [facility] Internal Medicine Work Phone: Comment on above: PATIENT NOT FASTINGP ERFORMED BY: [facility] Cjnjxb3510 [address]Dublin [place] [id number] Bilirubin mass conc 0.4 mg/dL Normal 0.0-1.2 Compr ensive Internal Medicine Work Phone: Comment on above: PATIENT NOT FASTINGP ERFORMED BY: VENTURA [facility] Hhwgow1118 [address] RoadDublin [place] [id number] Calcium mass conc 9.6 mg/dL Normal 8.7-10.3 Compreh ensive Internal Medicine Work Phone: Comment on above: PATIENT NOT FASTINGP ERFORMED BY: [facility] Tqhvow7569 [address] RoadDublin [place] [id number] Chloride molar conc 109 mmol/L Abnormal 96-106 Compr ensive Internal Medicine Work Phone: Comment on above: PATIENT NOT FASTINGP ERFORMED BY: CB [facility] Zpiokj8442 [address]Dublin [place] [id number] CO2 molar conc 18 mmol/L Abnormal 20-29 Comprehens mehdi Internal Medicine Work Phone: Comment on above: PATIENT NOT FASTINGP ERFORMED BY: [facility] Atxbfs6814 [address]Dublin [place] [id number] Creatinine mass conc 1.19 mg/dL Abnormal 0.57-1.00 Comp rehensive Internal Medicine Work Phone: Comment on above: PATIENT NOT FASTINGP ERFORMED BY: [facility] Bpwane8881 [address] RoadDublin [place] [id number] GFR/1.73 sq M predicted among blacks CKD-EPI vol rate/area (S/P/Bld) 53 mL/min/1.73 Abnormal [facility] Work Phone: Comment on above: PATIENT NOT FASTINGP ERFORMED BY: [facility] Rcrgxv8966 [address] [facility] [place] [id number] GFR/1.73 sq M predicted among non-blacks CKD-EPI vol rate/area (S/P/Bld) 46 mL/min/1.73 Abnormal Comprehensiv e Internal Medicine Work Phone: Comment on above: PATIENT NOT FASTINGP ERFORMED BY: [facility]6370 [address] [facility]in [place] [id number] Globulin mass conc (S) 2.4 g/dL Normal 1.5-4.5 Co mprehensive Internal Medicine Work Phone: Comment on above: PATIENT NOT FASTINGP ERFORMED BY: [facility] Rgyojr0194 [address] [facility] [place] [id number] Glucose mass conc 87 mg/dL Normal 65-99 Compreh ensive Internal Medicine Work Phone: Comment on above: PATIENT NOT FASTINGP ERFORMED BY: [facility] Nehthc3119 [address] [facility] [place] [id number] Potassium molar conc 5.0 mmol/L Normal 3.5-5.2 Comp rehensive Internal Medicine Work Phone: Comment on above: PATIENT NOT FASTINGP ERFORMED BY: [facility] Cjkxau5371 [address] [place] [id number] Protein mass conc 7.0 g/dL Normal 6.0-8.5 Compreh ensive Internal Medicine Work Phone: Comment on above: PATIENT NOT FASTINGP ERFORMED BY: VENTURA [facility] Dolusm6628 [facility] [id number] Sodium molar conc 147 mmol/L Abnormal 134-144 Compreh ensive Internal Medicine Work Phone: Comment on above: PATIENT NOT FASTINGP ERFORMED BY: VENTURA [facility] Ddtyzd3198 [facility] [id number] Urea nitrogen mass conc 18 mg/dL Normal 8-27 [facility] Work Phone: Comment on above: PATIENT NOT FASTINGP ERFORMED BY: [facility] Oeemox3359 [facility] [id number] Urea nitrogen/Creatinine mass ratio 15 mg/mg Normal 12-28 [facility] Work Phone: Comment on above: PATIENT NOT FASTINGP ERFORMED BY: LabCoHackensack University Medical CenterGzltqh7790 [facility] [id number] TSH ([id number])Ordered By: Navigating Cancere m Nurses' Registry Director on 05-10-2018 Thyrotropin Qn 2.300 {uIU/mL} Normal 0.450-4.50 0 [facility] Work Phone: Comment on above: PATIENT NOT FASTINGP ERFORMED BY: [facility] Adwcii1658 [facility] [id number] CBC, Platelets & Auto Diff ( [id number])Ordered By: Supervisor Gas Meter Repair on 08-07-2017 Basophils (Bld) [#/Vol] 0.0 {x10E3/uL} Normal 0.0-0.2 [facility] Work Phone: Comment on above: PATIENT NOT FASTINGP ERFORMED BY: [facility] Icftdm8017 [facility] [id number] Basophils (Bld) [#/Vol] 0.0 10*3/uL Normal 0.0-0.2 [facility]; [facility] Work Phone: Basophils Auto #/vol (Bld) 0.0 {x10E3/uL} Normal 0.0-0.2 [facility] Work Phone: Basophils/100 WBC (Bld) 0 % Normal [facility] Work Phone: Comment on above: PATIENT NOT FASTINGP ERFORMED BY: VENTURA LabLizette GalvanCqmwfr2396 [facility] [id number] Basophils/100 WBC Auto (Bld) 0 % Normal [facility] Work Phone: Eosinophils (Bld) [#/Vol] 0.1 {x10E3/uL} Normal 0.0-0.4 [facility] Work Phone: Comment on above: PATIENT NOT FASTINGP ERFORMED BY: VENTURA [facility]Faisal Zxznyk4431 [facility] [id number] Eosinophils (Bld) [#/Vol] 0.1 10*3/uL Normal 0.0-0.4 [facility]; [facility] Work Phone: Eosinophils Auto #/vol (Bld) 0.1 {x10E3/uL} Normal 0.0-0.4 [facility] Work Phone: Eosinophils/100 WBC (Bld) 2 % Normal [facility] Work Phone: Comment on above: PATIENT NOT FASTINGP ERFORMED BY: VENTURA LabLizette GalvanRoggqz6227 [facility] [id number] Eosinophils/100 WBC Auto (Bld) 2 % Normal [facility] Work Phone: Erythrocyte distribution width (RBC) [Ratio] 13.8 % Normal 12.3-15.4 [facility] Work Phone: Comment on above: PATIENT NOT FASTINGP ERFORMED BY: VENTURA [facility] Dxjpsz0696 [facility] [id number] Erythrocyte distribution width Auto Ratio (RBC) 13.8 % Normal 12.3-15.4 [facility] Work Phone: Hematocrit (Bld) [Volume fraction] 43.6 % Normal 34.0-46.6 [facility] Work Phone: Comment on above: PATIENT NOT FASTINGP ERFORMED BY: VENTURA [facility] Ztnyac0462 [facility] [id number] Hematocrit Auto Volume Fraction (Bld) 43.6 % Normal 34.0-46.6 [facility] Work Phone: Hemoglobin mass conc (Bld) 14.6 g/dL Normal 11.1-15.9 [facility] Work Phone: Comment on above: PATIENT NOT FASTINGP ERFORMED BY: VENTURA [facility] Tzrxys1543 [address] [facility] [id number] Immature granulocytes #/vol (Bld) 0.0 {x10E3/uL} Normal 0.0-0.1 [facility] Work Phone: Comment on above: PATIENT NOT FASTINGP ERFORMED BY: [facility] Rxdxkm5035 [address] [facility] [id number] Immature granulocytes (Bld) [#/Vol] 0.0 10*3/uL Normal 0.0-0.1 [facility]; [facility] Work Phone: Immature granulocytes/100 WBC (Bld) 0 % Normal [facility] Work Phone: Comment on above: PATIENT NOT FASTINGP ERFORMED BY: LabCoHackensack University Medical CenterZjomlb1641 [address] [facility] [id number] Lymphocytes (Bld) [#/Vol] 2.1 {x10E3/uL} Normal 0.7-3.1 [facility] Work Phone: Comment on above: PATIENT NOT FASTINGP ERFORMED BY: [facility] Srzldh0515 [address] [facility] [id number] Lymphocytes (Bld) [#/Vol] 2.1 10*3/uL Normal 0.7-3.1 [facility]; [facility] Work Phone: Lymphocytes Auto #/vol (Bld) 2.1 {x10E3/uL} Normal 0.7-3.1 [facility] Work Phone: Lymphocytes/100 WBC (Bld) 30 % Normal [facility] Work Phone: Comment on above: PATIENT NOT FASTINGP ERFORMED BY: [facility] Xwlomc1314 [facility] [id number] Lymphocytes/100 WBC Auto (Bld) 30 % Normal [facility] Work Phone: MCH (RBC) [Entitic mass] 28.5 pg Normal 26.6-33.0 [facility] Internal Medicine Work Phone: Comment on above: PATIENT NOT FASTINGP ERFORMED BY: [facility]6370 [facility] [id number] MCH Auto Entitic mass (RBC) 28.5 pg Normal 26.6-33.0 [facility] Internal Medicine Work Phone: MCHC (RBC) [Mass/Vol] 33.5 g/dL Normal 31.5-35.7 [facility] Internal Medicine Work Phone: Comment on above: PATIENT NOT FASTINGP ERFORMED BY: VENTURA [facility]6370 [facility] [id number] MCHC Auto mass conc (RBC) 33.5 g/dL Normal 31.5-35.7 [facility] Internal Medicine Work Phone: MCV (RBC) [Entitic vol] 85 fL Normal 79-97 [facility] Internal Medicine Work Phone: Comment on above: PATIENT NOT FASTINGP ERFORMED BY: [facility]6370 [facility] [id number] MCV Auto Entitic volume (RBC) 85 fL Normal 79-97 [facility] Internal Medicine Work Phone: Monocytes (Bld) [#/Vol] 0.6 {x10E3/uL} Normal 0.1-0.9 [facility] Internal Medicine Work Phone: Comment on above: PATIENT NOT FASTINGP ERFORMED BY: LabM[facility]6370 [facility] [id number] Monocytes (Bld) [#/Vol] 0.6 10*3/uL Normal 0.1-0.9 [facility] Internal Medicine; [facility] Work Phone: Monocytes Auto #/vol (Bld) 0.6 {x10E3/uL} Normal 0.1-0.9 [facility] Internal Medicine Work Phone: Monocytes/100 WBC (Bld) 9 % Normal [facility] Work Phone: Comment on above: PATIENT NOT FASTINGP ERFORMED BY: VENTURA GianfrancoLizette GalvanAomhmf6680 [facility] [id number] Monocytes/100 WBC Auto (Bld) 9 % Normal [facility] Work Phone: Neutrophils (Bld) [#/Vol] 4.1 {x10E3/uL} Normal 1.4-7.0 [facility] Work Phone: Comment on above: PATIENT NOT FASTINGP ERFORMED BY: VENTURA LabLizette GalvanVotrbg5510 [facility] [id number] Neutrophils (Bld) [#/Vol] 4.1 10*3/uL Normal 1.4-7.0 [facility]; [facility] Work Phone: Neutrophils Auto #/vol (Bld) 4.1 {x10E3/uL} Normal 1.4-7.0 [facility] Work Phone: Neutrophils/100 WBC (Bld) 59 % Normal [facility] Work Phone: Comment on above: PATIENT NOT FASTINGP ERFORMED BY: VENTURA GianfrancoLizette GalvanOkknmt4302 [facility] [id number] Neutrophils/100 WBC Auto (Bld) 59 % Normal [facility] Work Phone: Platelets (Bld) [#/Vol] 159 {x10E3/uL} Normal 150-379 [facility] Work Phone: Comment on above: PATIENT NOT FASTINGP ERFORMED BY: VENTURA LabCoHackensack University Medical CenterSrcyoi8157 [facility] [id number] Platelets (Bld) [#/Vol] 159 10*3/uL Normal 150-379 [facility]; [facility] Work Phone: Platelets Auto #/vol (Bld) 159 {x10E3/uL} Normal 150-379 [facility] Work Phone: RBC (Bld) [#/Vol] 5.12 {x10E6/uL} Normal 3.77-5.28 Co [facility] healthensive Internal Medicine Work Phone: Comment on above: PATIENT NOT FASTINGP ERFORMED BY: VENTURA [facility] Xuzirz4380 [address] [facility] [id number] RBC (Bld) [#/Vol] 5.12 10*6/uL Normal 3.77-5.28 [facility]; [facility] Work Phone: RBC Auto #/vol (Bld) 5.12 {x10E6/uL} Normal 3.77-5.28 [facility] Work Phone: WBC (Bld) [#/Vol] 6.9 {x10E3/uL} Normal 3.4-10.8 [facility] Internal Medicine Work Phone: Comment on above: PATIENT NOT FASTINGP ERFORMED BY: VENTURA [facility] Qlgcsz0857 [facility] [id number] WBC (Bld) [#/Vol] 6.9 10*3/uL Normal 3.4-10.8 [facility] Internal Medicine; [facility] Work Phone: WBC Auto #/vol (Bld) 6.9 {x10E3/uL} Normal 3.4-10.8 [facility] Work Phone: MICROALBUMINOrdered By: Syst em Nurses' Registry Director on 08-07-2017 Albumin DL <= 20 mg/L mass conc (U) 4.0 ug/mL Normal [facility] Work Phone: Comment on above: PATIENT NOT FASTINGP ERFORMED BY: VENTURA [facility] Iakeqa6357 [address] [facility] [id number] Albumin/Creatinine mass ratio (U) 4.6 {mg/g_creat} Normal 0.0-30.0 [facility] Work Phone: Comment on above: PATIENT NOT FASTINGP ERFORMED BY: VENTURA [facility] Lvowtw9795 [facility] [id number] Creatinine mass conc (U) 86.1 mg/dL Normal [facility] Work Phone: Comment on above: PATIENT NOT FASTINGP ERFORMED BY: CB [facility] Wnvyym6835 [address]Dublin [place] [id number] Metabolic Panel, Comprehensi ve ([id number])Ordered By: Supervisor Gas Meter Repair on 08-07-2017 Albumin mass conc 4.2 g/dL Normal 3.5-4.8 Compreh [facility] Internal Medicine Work Phone: Comment on above: PATIENT NOT FASTINGP ERFORMED BY: CB [facility] Hlhndz5465 [address]Dublin [place] [id number] Albumin/Globulin mass ratio 1.6 {ratio} Normal 1.2-2.2 [facility] Work Phone: Comment on above: PATIENT NOT FASTINGP ERFORMED BY: CB [facility] Iuoclg2571 [address] RoadDublin [place] [id number] ALP [Catalytic activity/Vol] 90 U/L Normal 39-117 [facility]; [facility] Work Phone: ALP enzyme act/vol 90 [iU]/L Normal 39-117 [facility] Internal Medicine Work Phone: Comment on above: PATIENT NOT FASTINGP ERFORMED BY: CB [facility] Ldqklg9270 [address]Dublin [place] [id number] ALT [Catalytic activity/Vol] 10 U/L Normal 0-32 [facility]; [facility] Work Phone: ALT enzyme act/vol 10 [iU]/L Normal 0-32 [facility] Internal Medicine Work Phone: Comment on above: PATIENT NOT FASTINGP ERFORMED BY: CB [facility] Unormd1083 [address]Dublin [place] [id number] AST [Catalytic activity/Vol] 15 U/L Normal 0-40 [facility]; [facility] Work Phone: AST enzyme act/vol 15 [iU]/L Normal 0-40 [facility] Internal Medicine Work Phone: Comment on above: PATIENT NOT FASTINGP ERFORMED BY: CB [facility] Arbyth8001 [address]Dublin [place] [id number] Bilirubin [Mass/Vol] mg/dL Normal 0.0-1.2 Comp rehensive Internal Medicine; [facility] Work Phone: Bilirubin mass conc mg/dL Normal 0.0-1.2 Compr ensive Internal Medicine Work Phone: Comment on above: PATIENT NOT FASTINGP ERFORMED BY: VENTURA [facility] Efqczu5487 [address]Dublin [place] [id number] Calcium mass conc 9.2 mg/dL Normal 8.7-10.3 Compreh ensive Internal Medicine Work Phone: Comment on above: PATIENT NOT FASTINGP ERFORMED BY: VENTURA [facility] Hpfdnu9142 [address]Dublin [place] [id number] Chloride molar conc 105 mmol/L Normal 96-106 Compr ensive Internal Medicine Work Phone: Comment on above: PATIENT NOT FASTINGP ERFORMED BY: VENTURA [facility] Coqijd9972 [address] RoadDuin [place] [id number] CO2 molar conc 23 mmol/L Normal 18-29 Comprehens mehdi Internal Medicine Work Phone: Comment on above: Effective August 13, 2017 Carbon Dioxide, Total reference interval will be changing to: Age Male Female 0 days - 30 days 16 - 29 16 - 29 31 days - 1 year 15 - 25 15 - 25 2 years - 5 years 17 - 26 17 - 26 6 years - 12 years 19 - 27 19 - 27 >12 years 20 - 29 20 - 29 PATIENT NOT FASTINGP ERFORMED BY: VENTURA [facility] Jratxq4321 [address] [facility] [id number] Creatinine mass conc 1.08 mg/dL Abnormal 0.57-1.00 Comp [facility] centerensive Internal Medicine Work Phone: Comment on above: PATIENT NOT FASTINGP ERFORMED BY: CB [facility] Onmucz3638 [address] RoadDublin [place] [id number] GFR/1.73 sq M predicted among blacks CKD-EPI vol rate/area (S/P/Bld) 60 mL/min/1.73 Normal [facility] Work Phone: Comment on above: PATIENT NOT FASTINGP ERFORMED BY: VENTURA [facility] Bsywrr5086 [address] [facility] [place] [id number] GFR/1.73 sq M predicted among non-blacks CKD-EPI vol rate/area (S/P/Bld) 52 mL/min/1.73 Abnormal Comprehensiv e Internal Medicine Work Phone: Comment on above: PATIENT NOT FASTINGP ERFORMED BY: CB [facility] Nmuola7941 [address] RoadAtrium Health Harrisburgin [place] [id number] Globulin (S) [Mass/Vol] 2.7 g/dL Normal 1.5-4.5 [facility] Work Phone: Comment on above: PATIENT NOT FASTINGP ERFORMED BY: VENTURA [facility] Oqnpty7224 [address] [facility]in [place] [id number] Globulin Calculated mass conc (S) 2.7 g/dL Normal 1.5-4.5 [facility] Work Phone: Glucose mass conc 103 mg/dL Abnormal 65-99 Compreh ensive Internal Medicine Work Phone: Comment on above: PATIENT NOT FASTINGP ERFORMED BY: VENTURA [facility] Hdawen3003 [address] [facility] [id number] Potassium molar conc 4.6 mmol/L Normal 3.5-5.2 Comp rehensive Internal Medicine Work Phone: Comment on above: PATIENT NOT FASTINGP ERFORMED BY: VENTURA [facility] Dnptft2543 [facility] [id number] Protein mass conc 6.9 g/dL Normal 6.0-8.5 Compreh ensive Internal Medicine Work Phone: Comment on above: PATIENT NOT FASTINGP ERFORMED BY: CB [facility] Pcgorp4538 [address] [facility]in [place] [id number] Sodium molar conc 141 mmol/L Normal 134-144 Compreh ensive Internal Medicine Work Phone: Comment on above: PATIENT NOT FASTINGP ERFORMED BY: VENTURA [facility] Svvthn7156 [address] [facility]in [place] [id number] Urea nitrogen mass conc 18 mg/dL Normal 8-27 [facility] Work Phone: Comment on above: PATIENT NOT FASTINGP ERFORMED BY: VENTURA [facility] Dxfoll2674 [address]Dublin [place] [id number] Urea nitrogen/Creatinine mass ratio 17 mg/mg Normal 12-28 [facility] Work Phone: Comment on above: PATIENT NOT FASTINGP ERFORMED BY: VENTURA [facility] Jktfpy6832 [address] RoadDublin [place] [id number] Microscopic ExaminationOrder ed By: Supervisor Gas Meter Repair on 08-07-2017 Bacteria LM.HPF #/area (Urine sed) None seen Normal [facility] Work Phone: Comment on above: PATIENT NOT FASTINGP ERFORMED BY: VENTURA [facility] Opwlms6047 [address] RoadDublin [place] [id number] Epithelial cells LM.HPF #/area (Urine sed) 0-10 Normal 0 - 10 [facility] Work Phone: Comment on above: PATIENT NOT FASTINGP ERFORMED BY: VENTURA [facility] Kqwgmz0395 [address] RoadDublin [place] [id number] Mucus LM Ql (Urine sed) Present Normal [facility] Work Phone: Mucus Ql (Urine sed) Present Normal Comp rehensive Internal Medicine Work Phone: Comment on above: PATIENT NOT FASTINGP ERFORMED BY: CB [facility] Pipkmu8336 [address]Dublin [place] [id number] RBC LM.HPF #/area (Urine sed) 0-2 Normal 0 - 2 [facility] Work Phone: Comment on above: PATIENT NOT FASTINGP ERFORMED BY: CB [facility] Lugxws6120 [address] [place] [id number] WBC LM.HPF #/area (Urine sed) 0-5 Normal 0 - 5 [facility] Work Phone: Comment on above: PATIENT NOT FASTINGP ERFORMED BY: CB [facility] Lkiwsj0842 [address] [place] [id number] TSH ([id number])Ordered By: Valeria m Nurses' Registry Director on 08-07-2017 Thyrotropin Qn 1.730 {uIU/mL} Normal 0.450-4.50 0 [facility] Work Phone: Comment on above: PATIENT NOT FASTINGP ERFORMED BY: VENTURA [facility] Bipwbf3966 [address] RoadDublin [place] [id number] URINALYSIS ([id number])Ordered By : Supervisor Gas Meter Repair on 08-07-2017 Appearance Nom (U) Clear Normal Compre hensive Internal Medicine Work Phone: Comment on above: PATIENT NOT FASTINGP ERFORMED BY: VENTURA [facility] Rhufqc0105 [address]Dublin [place] [id number] Bilirubin Ql (U) Negative Normal Comprehe nsive Internal Medicine Work Phone: Comment on above: PATIENT NOT FASTINGP ERFORMED BY: VENTURA [facility] Rtlnwz4631 [address]Dublin [place] [id number] Bilirubin Ql (U) Negative Normal Comprehe nsive Internal Medicine; [facility] Work Phone: Color Nom (U) Yellow Normal Comprehensi ve Internal Medicine Work Phone: Comment on above: PATIENT NOT FASTINGP ERFORMED BY: VENTURA [facility] Mejgto3804 [address] RoadDublin [place] [id number] Glucose Ql (U) Negative Normal Comprehens mehdi Internal Medicine Work Phone: Comment on above: PATIENT NOT FASTINGP ERFORMED BY: VENTURA [facility] Zavrgo8328 [address]Dublin [place] [id number] Glucose Ql (U) Negative Normal Comprehens mehdi Internal Medicine; [facility] Work Phone: Hemoglobin Ql (U) 1+ Abnormal Compreh ensive Internal Medicine Work Phone: Comment on above: PATIENT NOT FASTINGP ERFORMED BY: VENTURA [facility] Uzgwdn8588 [address] [place] [id number] Hemoglobin Test strip Ql (U) 1+ Abnormal [facility] Work Phone: Ketones Ql (U) Negative Normal Comprehens mehdi Internal Medicine Work Phone: Comment on above: PATIENT NOT FASTINGP ERFORMED BY: VENTURA [facility] Oscwef6497 [address] [place] [id number] Ketones Ql (U) Negative Normal Comprehens mehdi Internal Medicine; [facility] Work Phone: Leukocyte esterase Test strip Ql (U) Negative Normal [facility] Work Phone: Comment on above: PATIENT NOT FASTINGP ERFORMED BY: VENTURA GianfrancoLizette GalvanPgpjad4494 [address] RoadDublin [place] [id number] Leukocyte esterase Test strip Ql (U) Negative Normal [facility]; [facility] Work Phone: Microscopic observation LM Nom (Urine sed) See below: Normal [facility] Work Phone: Comment on above: Microscopic was roma cated and was performed. PATIENT NOT FASTINGP ERFORMED BY: VENTURA Galvanlin6370 [address]Dublin [place] [id number] Nitrite Ql (U) Negative Normal Comprehens mehdi Internal Medicine Work Phone: Comment on above: PATIENT NOT FASTINGP ERFORMED BY: VENTURA Galvanlin6370 [address] [place] [id number] Nitrite Ql (U) Negative Normal Comprehens mehdi Internal Medicine; [facility] Work Phone: Nitrite Test strip Ql (U) Negative Normal [facility] Work Phone: pH (U) 6.0 [pH] Normal 5.0-7.5 [facility] Work Phone: Comment on above: PATIENT NOT FASTINGP ERFORMED BY: VENTURA Galvanlin6370 [address]bl[address] [place] [id number] pH Test strip (U) 6.0 [pH] Normal 5.0-7.5 Compreh ensive Internal Medicine Work Phone: Protein Ql (U) Negative Normal Comprehens mehdi Internal Medicine Work Phone: Comment on above: PATIENT NOT FASTINGP ERFORMED BY: VENTURA GianfrancoLizette GalvanKvroum0680 [address]Dublin [place] [id number] Protein Ql (U) Negative Normal Comprehens mehdi Internal Medicine; [facility] Work Phone: Protein Test strip Ql (U) Negative Normal [facility] Work Phone: Specific gravity Relative Density (U) 1.016 1 Normal 1.005-1.03 0 [facility] Work Phone: Comment on above: PATIENT NOT FASTINGP ERFORMED BY: [employer]6370 [facility] [id number] Urobilinogen (U) [Mass/Vol] 0.2 mg/dL Normal 0.2-1.0 [facility]; [facility] Work Phone: Urobilinogen Test strip mass conc (U) 0.2 mg/dL Normal 0.2-1.0 Comprehensiv e Internal Medicine Work Phone: Comment on above: PATIENT NOT FASTINGP ERFORMED BY: MyRoll[address] [facility] HospitalCoScheduleVidant Pung[facility] [id number] CALCIFEDIOL ([id number])Ordered B y: Supervisor Gas Meter Repair on 04-10-2017 25-Hydroxyvitamin D2+25-Hydroxyvitamin D3 mass conc 26.4 ng/mL Abnormal 30.0-100.0 [facility] Work Phone: Comment on above: Vitamin D deficiency has been defined by the [place] ofMedicine and an Endocrine Society practice guideline as alevel of serum 25-OH vitamin D less than 20 ng/mL (1,2).The Endocrine Society went on to further define vitamin Dinsufficiency as a level between 21 and 29 ng/mL (2).1. IOM ([place] of Medicine). 2010. Dietary reference intakes for calcium and D. [place]: The National Academies Press.2. Radu MF, Mary [place], Samy UMANA, et al. Evaluation, treatment, and prevention of vitamin D deficiency: an Endocrine Society clinical practice guideline. JCEM. 2010; 96(7):1911-30. PATIENT WAS FASTINGP ERFORMED BY: [employer]6370 [facility] [id number] CBC, Platelets & Auto Diff ( [id number])Ordered By: Supervisor Gas Meter Repair on 04-10-2017 Basophils (Bld) [#/Vol] 0.0 {x10E3/uL} Normal 0.0-0.2 [facility] Work Phone: Comment on above: PATIENT WAS FASTINGP ERFORMED BY: VENTURA [employer] Leeeqa5935 [facility] [id number] Basophils (Bld) [#/Vol] 0.0 10*3/uL Normal 0.0-0.2 [facility]; [facility] Work Phone: Basophils Auto #/vol (Bld) 0.0 {x10E3/uL} Normal 0.0-0.2 [facility] Work Phone: Basophils/100 WBC (Bld) 0 % Normal [facility] Work Phone: Comment on above: PATIENT WAS FASTINGP ERFORMED BY: VENTURA Next Heathcarereyna GalvanPxekgv9680 [facility] [id number] Basophils/100 WBC Auto (Bld) 0 % Normal [facility] Work Phone: Eosinophils (Bld) [#/Vol] 0.1 {x10E3/uL} Normal 0.0-0.4 [facility] Work Phone: Comment on above: PATIENT WAS FASTINGP ERFORMED BY: VENTURA Next Heathcarereyna Lylaxo0837 [facility] [id number] Eosinophils (Bld) [#/Vol] 0.1 10*3/uL Normal 0.0-0.4 [facility]; [facility] Work Phone: Eosinophils Auto #/vol (Bld) 0.1 {x10E3/uL} Normal 0.0-0.4 [facility] Work Phone: Eosinophils/100 WBC (Bld) 1 % Normal [facility] Work Phone: Comment on above: PATIENT WAS FASTINGP ERFORMED BY: Next HeathcareDonald Ville [id number] [facility] [id number] Eosinophils/100 WBC Auto (Bld) 1 % Normal [facility] Work Phone: Erythrocyte distribution width (RBC) [Ratio] 14.4 % Normal 12.3-15.4 [facility] Work Phone: Comment on above: PATIENT WAS FASTINGP ERFORMED BY: LabMclaren [facility] Region6370 [facility] [id number] Erythrocyte distribution width Auto Ratio (RBC) 14.4 % Normal 12.3-15.4 [facility] Work Phone: Hematocrit (Bld) [Volume fraction] 43.6 % Normal 34.0-46.6 [facility] Work Phone: Comment on above: PATIENT WAS FASTINGP ERFORMED BY: LabCoHackensack University Medical CenterKzfvmw1751 [facility] [id number] Hematocrit Auto Volume Fraction (Bld) 43.6 % Normal 34.0-46.6 [facility] Work Phone: Hemoglobin mass conc (Bld) 14.9 g/dL Normal 11.1-15.9 [facility] Work Phone: Comment on above: PATIENT WAS FASTINGP ERFORMED BY: [facility]6370 [facility] [id number] Immature granulocytes #/vol (Bld) 0.0 {x10E3/uL} Normal 0.0-0.1 [facility] Work Phone: Comment on above: PATIENT WAS FASTINGP ERFORMED BY: [facility]6370 [facility] [id number] Immature granulocytes (Bld) [#/Vol] 0.0 10*3/uL Normal 0.0-0.1 [facility]; [facility] Work Phone: Immature granulocytes/100 WBC (Bld) 0 % Normal [facility] Work Phone: Comment on above: PATIENT WAS FASTINGP ERFORMED BY: LabCo Hequyb9478 [address] [facility] [id number] Lymphocytes (Bld) [#/Vol] 2.2 {x10E3/uL} Normal 0.7-3.1 [facility] Work Phone: Comment on above: PATIENT WAS FASTINGP ERFORMED BY: LabMcl[facility] Region6370 [facility] [id number] Lymphocytes (Bld) [#/Vol] 2.2 10*3/uL Normal 0.7-3.1 [facility]; [facility] Work Phone: Lymphocytes Auto #/vol (Bld) 2.2 {x10E3/uL} Normal 0.7-3.1 [facility] Work Phone: Lymphocytes/100 WBC (Bld) 33 % Normal [facility] Internal Medicine Work Phone: Comment on above: PATIENT WAS FASTINGP ERFORMED BY: Next HeathcareChinle Comprehensive Health Care FacilityGdohnk6786 [facility] [id number] Lymphocytes/100 WBC Auto (Bld) 33 % Normal [facility] Work Phone: MCH (RBC) [Entitic mass] 28.5 pg Normal 26.6-33.0 [facility] Internal [facility] Work Phone: Comment on above: PATIENT WAS FASTINGP ERFORMED BY: Next HeathcareHackensack University Medical CenterScnjaj4314 [facility] [id number] MCH Auto Entitic mass (RBC) 28.5 pg Normal 26.6-33.0 [facility] Internal [facility] Work Phone: MCHC (RBC) [Mass/Vol] 34.2 g/dL Normal 31.5-35.7 [facility] Internal Medicine Work Phone: Comment on above: PATIENT WAS FASTINGP ERFORMED BY: [employer] Tffots2599 [facility] [id number] MCHC Auto mass conc (RBC) 34.2 g/dL Normal 31.5-35.7 [facility] Internal [facility] Work Phone: MCV (RBC) [Entitic vol] 84 fL Normal 79-97 [facility] Internal [facility] Work Phone: Comment on above: PATIENT WAS FASTINGP ERFORMED BY: Next HeathcareHackensack University Medical CenterLtzayg8797 [facility] [id number] MCV Auto Entitic volume (RBC) 84 fL Normal 79-97 [facility] Internal [facility] Work Phone: Monocytes (Bld) [#/Vol] 0.6 {x10E3/uL} Normal 0.1-0.9 [facility] Work Phone: Comment on above: PATIENT WAS FASTINGP ERFORMED BY: VENTURA Next HeathcareHackensack University Medical CenterElktpf8325 [facility] [id number] Monocytes (Bld) [#/Vol] 0.6 10*3/uL Normal 0.1-0.9 [facility]; [facility] Work Phone: Monocytes Auto #/vol (Bld) 0.6 {x10E3/uL} Normal 0.1-0.9 [facility] Work Phone: Monocytes/100 WBC (Bld) 8 % Normal [facility] Work Phone: Comment on above: PATIENT WAS FASTINGP ERFORMED BY: VENTURA Next Heathcarereyna GalvanGmwbdz[address] [place] [address] [id number] Monocytes/100 WBC Auto (Bld) 8 % Normal [facility] Work Phone: Neutrophils (Bld) [#/Vol] 3.8 {x10E3/uL} Normal 1.4-7.0 [facility] Work Phone: Comment on above: PATIENT WAS FASTINGP ERFORMED BY: VENTURA Galvanlin6370 [facility] [id number] Neutrophils (Bld) [#/Vol] 3.8 10*3/uL Normal 1.4-7.0 [facility]; [facility] Work Phone: Neutrophils Auto #/vol (Bld) 3.8 {x10E3/uL} Normal 1.4-7.0 [facility] Work Phone: Neutrophils/100 WBC (Bld) 58 % Normal [facility] Work Phone: Comment on above: PATIENT WAS FASTINGP ERFORMED BY: VENTURA Next HeathcareDonald V[place] [id number] [facility] [id number] Neutrophils/100 WBC Auto (Bld) 58 % Normal [facility] Work Phone: Platelets (Bld) [#/Vol] 147 {x10E3/uL} Abnormal 150-379 [facility] Work Phone: Comment on above: PATIENT WAS FASTINGP ERFORMED BY: [facility]6370 [facility] [id number] Platelets (Bld) [#/Vol] 147 10*3/uL Abnormal 150-379 [facility]; [facility] Work Phone: Platelets Auto #/vol (Bld) 147 {x10E3/uL} Abnormal 150-379 [facility] Work Phone: RBC (Bld) [#/Vol] 5.22 {x10E6/uL} Normal 3.77-5.28 [facility] Internal Medicine Work Phone: Comment on above: PATIENT WAS FASTINGP ERFORMED BY: [facility]6370 [facility] [id number] RBC (Bld) [#/Vol] 5.22 10*6/uL Normal 3.77-5.28 [facility]; [facility] Work Phone: RBC Auto #/vol (Bld) 5.22 {x10E6/uL} Normal 3.77-5.28 [facility] Work Phone: WBC (Bld) [#/Vol] 6.7 {x10E3/uL} Normal 3.4-10.8 [facility] Internal Medicine Work Phone: Comment on above: PATIENT WAS FASTINGP ERFORMED BY: [facility]6370 [facility] [id number] WBC (Bld) [#/Vol] 6.7 10*3/uL Normal 3.4-10.8 [facility] Internal Medicine; [facility] Work Phone: WBC Auto #/vol (Bld) 6.7 {x10E3/uL} Normal 3.4-10.8 [facility] Work Phone: Lipid Panel ([id number])Ordered B y: Supervisor Gas Meter Repair on 04-10-2017 Cholesterol in HDL mass conc 57 mg/dL Normal [facility] Work Phone: Comment on above: PATIENT WAS FASTINGP ERFORMED BY: VENTURA LabCoreyna Ppgrfv8937 [address] RoadDublin [place] [id number] Cholesterol in LDL mass conc 128 mg/dL Abnormal 0-99 [facility] Work Phone: Comment on above: PATIENT WAS FASTINGP ERFORMED BY: VENTURA LabCoreyna Rxaoqc8451 [address] RoadDublin [place] [id number] Cholesterol in LDL/Cholesterol in HDL mass ratio 2.2 {ratio_units} Normal 0.0-3.2 [facility] Work Phone: Comment on above: LDL/HDL Ratio Men Wo men 1/2 Avg.Risk 1.0 1.5 Avg.Risk 3.6 3.2 2X Avg.Risk 6.2 5.0 3X Avg.Risk 8.0 6.1 PATIENT WAS FASTINGP ERFORMED BY: VENTURA LabCoreyna GalvanCtlpom6552 [address]e RoadDublin [place] [id number] Cholesterol in VLDL mass conc 14 mg/dL Normal 5-40 [facility] Work Phone: Comment on above: PATIENT WAS FASTINGP ERFORMED BY: VENTURA LabCoreyna Wlehiw2034 [address] RoadDublin [place] [id number] Cholesterol mass conc 199 mg/dL Normal 100-199 Com prehensive Internal Medicine Work Phone: Comment on above: PATIENT WAS FASTINGP ERFORMED BY: VENTURA LabLizette GalvanQwqakx6386 [address] RoadDublin [place] [id number] Triglyceride mass conc 70 mg/dL Normal 0-149 Co cox monettehensive Internal Medicine Work Phone: Comment on above: PATIENT WAS FASTINGP ERFORMED BY: VENTURA [facility] Cmoykn7604 [address] RoadDublin [place] [id number] Metabolic Panel, Comprehensi ve ([id number])Ordered By: Supervisor Gas Meter Repair on 04-10-2017 Albumin mass conc 4.3 g/dL Normal 3.5-4.8 Compreh ensive Internal Medicine Work Phone: Comment on above: PATIENT WAS FASTINGP ERFORMED BY: VENTURA [facility] Mwtvhe3077 [address] RoadDublin [place] [id number] Albumin/Globulin mass ratio 1.5 {ratio} Normal 1.2-2.2 [facility] Internal Medicine Work Phone: Comment on above: PATIENT WAS FASTINGP ERFORMED BY: VENTURA Porfirioreyna GalvanEglzto5003 [address] RoadDublin [place] [id number] ALP [Catalytic activity/Vol] 104 U/L Normal 39-117 [facility]; [facility] Internal [facility] Work Phone: ALP enzyme act/vol 104 [iU]/L Normal 39-117 [facility] Internal Medicine Work Phone: Comment on above: PATIENT WAS FASTINGP ERFORMED BY: VENTURA [facility] Cmdcum1782 [address] RoadDublin [place] [id number] ALT [Catalytic activity/Vol] 14 U/L Normal 0-32 [facility]; [facility] Internal [facility] Work Phone: ALT enzyme act/vol 14 [iU]/L Normal 0-32 [facility] Internal Medicine Work Phone: Comment on above: PATIENT WAS FASTINGP ERFORMED BY: VENTURA GianfrancoRusk Rehabilitation Center Zunjmp0557 [address] RoadAtrium Health Harrisburgin [place] [id number] AST [Catalytic activity/Vol] 21 U/L Normal 0-40 [facility]; [facility] Internal Medicine Work Phone: AST enzyme act/vol 21 [iU]/L Normal 0-40 [facility] Internal Medicine Work Phone: Comment on above: PATIENT WAS FASTINGP ERFORMED BY: VENTURA MedelRusk Rehabilitation Center Axiqiy35[address] [facility] Centerin [place] [id number] Bilirubin mass conc 0.5 mg/dL Normal 0.0-1.2 [facility] Internal Medicine Work Phone: Comment on above: PATIENT WAS FASTINGP ERFORMED BY: VENTURA LabCo Cmjnqd4782 [address]e RoadDublin [place] [id number] Calcium mass conc 9.3 mg/dL Normal 8.7-10.3 [facility] Internal Medicine Work Phone: Comment on above: PATIENT WAS FASTINGP ERFORMED BY: VENTURA LabR[facility] Irwvsy5627 [address]e RoadDublin [place] [id number] Chloride molar conc 102 mmol/L Normal 96-106 Compr ehensive Internal Medicine Work Phone: Comment on above: PATIENT WAS FASTINGP ERFORMED BY: VENTURA Salter6370 [facility] [id number] CO2 molar conc 23 mmol/L Normal 18-29 Comprehens mehdi Internal Medicine Work Phone: Comment on above: PATIENT WAS FASTINGP ERFORMED BY: LabCo Itxdwa7854 [facility] [id number] Creatinine mass conc 1.10 mg/dL Abnormal 0.57-1.00 Comp [facility] centerensive Internal Medicine Work Phone: Comment on above: PATIENT WAS FASTINGP ERFORMED BY: VENTURA Monroy Epwnwf4943 [facility] [id number] GFR/1.73 sq M predicted among blacks CKD-EPI vol rate/area (S/P/Bld) 59 mL/min/1.73 Abnormal [facility] Work Phone: Comment on above: PATIENT WAS FASTINGP ERFORMED BY: GianfrancoRusk Rehabilitation Center Butumk9399 [facility] [id number] GFR/1.73 sq M predicted among non-blacks CKD-EPI vol rate/area (S/P/Bld) 51 mL/min/1.73 Abnormal Comprehensiv e Internal Medicine Work Phone: Comment on above: PATIENT WAS FASTINGP ERFORMED BY: LabRusk [facility] Center Ldlwvf8298 [facility] [id number] Globulin (S) [Mass/Vol] 2.8 g/dL Normal 1.5-4.5 [facility] Work Phone: Comment on above: PATIENT WAS FASTINGP ERFORMED BY: LabRusk [facility] Center Mlmufx9858 [facility] [id number] Globulin Calculated mass conc (S) 2.8 g/dL Normal 1.5-4.5 [facility] Work Phone: Glucose mass conc 97 mg/dL Normal 65-99 Compreh ensive Internal Medicine Work Phone: Comment on above: PATIENT WAS FASTINGP ERFORMED BY: VENTURA LabLizette GalvanIbhmlz3758 [address] [facility] [id number] Potassium molar conc 4.2 mmol/L Normal 3.5-5.2 Comp rehensive Internal Medicine Work Phone: Comment on above: PATIENT WAS FASTINGP ERFORMED BY: VENTURA LabLizette GalvanHhrkit1731 [facility] [id number] Protein mass conc 7.1 g/dL Normal 6.0-8.5 Compreh ensive Internal Medicine Work Phone: Comment on above: PATIENT WAS FASTINGP ERFORMED BY: VENTURA Salter6370 [facility] [id number] Sodium molar conc 142 mmol/L Normal 134-144 Compreh ensive Internal Medicine Work Phone: Comment on above: PATIENT WAS FASTINGP ERFORMED BY: VENTURA Salter6370 [facility] [id number] Urea nitrogen mass conc 19 mg/dL Normal 8-27 [facility] Work Phone: Comment on above: PATIENT WAS FASTINGP ERFORMED BY: VENTURA Salter6370 [facility] [id number] Urea nitrogen/Creatinine mass ratio 17 mg/mg Normal 12-28 [facility] Work Phone: Comment on above: PATIENT WAS FASTINGP ERFORMED BY: VENTURA Galvanlin6370 [facility] [id number] TSH ([id number])Ordered By: Syste m Nurses' Registry Director on 04-10-2017 Thyrotropin Qn 2.100 {uIU/mL} Normal 0.450-4.50 0 [facility] Work Phone: Comment on above: PATIENT WAS FASTINGP ERFORMED BY: VENTURA Galvanlin6370 [facility] [id number] Serum Creatinine AND GFROrde red By: Supervisor Gas Meter Repair on 05-16-2016 Creatinine mass conc 1.06 mg/dL Abnormal 0.55-1.02 Comp rehensive Internal Medicine Work Phone: Comment on above: The validity of the calculated GFR AND GFRAA in patients over70 years has not been determined. Clinical correlation isessential. [facility] [address]em[address] [place], [place], [address] EST GFR - AA 66 mL/min Normal Comprehensiv e Internal Medicine Work Phone: Comment on above: GFR Calc GFR/1.73 sq M predicted among non-blacks MDRD vol rate/area (S/P/Bld) 55 mL/min/{1.73_m2} Abnormal Comprehe nsive Internal Medicine Work Phone: Comment on above: Non- GFR Calc [facility] [address] [place], [place], [address] Serum Creatinine AND GFR 66 mL/min Normal [facility] Work Phone: Comment on above: GFR Calc [facility] X[address] [place], [place], [address] URINE WANDER CULTURE-IDENTIFICA [place] ([id number])Ordered By: Supervisor Gas Meter Repair on 03-22-2016 Bacteria identified Cx Nom (U) NG36 Normal [facility] Work Phone: Comment on above: No growth in 36 - 48 hours. PERFORMED BY: [facility]onV[facility] [id number] Information: SRC:UC Bacteria identified Cx Nom (U) Final report Normal [facility] Work Phone: Comment on above: PERFORMED BY: [facility]onV[facility] [id number] Information: SRC: Urinalysis, Office ([id number])Or dered By: Alessandro Daley on 03-22-2016 Bilirubin Ql (U) Negative Normal Comprehe nsive Internal Medicine Work Phone: Glucose Test strip mass conc (U) Negative Normal [facility] Work Phone: Hemoglobin Ql (U) Hemolyzed Moderate Normal [facility] Work Phone: Hemoglobin Test strip Ql (U) Hemolyzed Moderate Normal [facility] Work Phone: Ketones Ql (U) Negative Normal Comprehens mehdi Internal Medicine Work Phone: Leukocyte esterase Test strip Ql (U) Negative Normal [facility] Work Phone: Nitrite Ql (U) Negative Normal Comprehens mehdi [facility] Work Phone: Nitrite Test strip Ql (U) Negative Normal [facility] Work Phone: pH (U) 6 [pH] Abnormal [facility] Work Phone: pH Test strip (U) 6 [pH] Abnormal Compreh ensive Internal Medicine Work Phone: Protein Ql (U) Negative Normal Comprehens mehdi Internal Medicine Work Phone: Protein Test strip Ql (U) Negative Normal [facility] Work Phone: Specific gravity Relative Density (U) 1.030 1 Abnormal Comprehensi ve Internal Medicine Work Phone: Urobilinogen mass/time (24H U) Normal Normal [facility] Work Phone: Urinalysis, Office ([id number])on 03-22-2016 Bilirubin Ql (U) Negative Normal Comprehe nsive Internal Medicine; [facility] Work Phone: Glucose Test strip (U) [Mass/Vol] Negative Normal [facility]; [facility] Work Phone: Ketones Ql (U) Negative Normal Comprehens mehdi [facility]; [facility] Work Phone: Leukocyte esterase Test strip Ql (U) Negative Normal [facility]; [facility] Work Phone: Nitrite Ql (U) Negative Normal Comprehens mehdi [facility]; [facility] Work Phone: Protein Ql (U) Negative Normal Comprehens mehdi [facility]; [facility] Work Phone: CBC, Platelets & Auto Diff ( [id number])Ordered By: Supervisor Gas Meter Repair on 03-16-2016 Basophils (Bld) [#/Vol] 0.0 {x10E3/uL} Normal 0.0-0.2 [facility] Work Phone: Comment on above: PATIENT WAS FASTINGP ERFORMED BY: VENTURA DoubleBeamLizette Jznyzs7267 [facility] [id number] Basophils (Bld) [#/Vol] 0.0 10*3/uL Normal 0.0-0.2 [facility]; [facility] Work Phone: Basophils Auto #/vol (Bld) 0.0 {x10E3/uL} Normal 0.0-0.2 [facility] Work Phone: Basophils/100 WBC (Bld) 0 % Normal [facility] Work Phone: Comment on above: PATIENT WAS FASTINGP ERFORMED BY: VENTURA Galvanlin6370 [facility] [id number] Basophils/100 WBC Auto (Bld) 0 % Normal [facility] Work Phone: Eosinophils (Bld) [#/Vol] 0.1 {x10E3/uL} Normal 0.0-0.4 [facility] Work Phone: Comment on above: PATIENT WAS FASTINGP ERFORMED BY: VENTURA Galvanlin6370 [facility] [id number] Eosinophils (Bld) [#/Vol] 0.1 10*3/uL Normal 0.0-0.4 [facility]; [facility] Work Phone: Eosinophils Auto #/vol (Bld) 0.1 {x10E3/uL} Normal 0.0-0.4 [facility] Work Phone: Eosinophils/100 WBC (Bld) 1 % Normal [facility] Work Phone: Comment on above: PATIENT WAS FASTINGP ERFORMED BY: VENTURA [facility] Centerreyna [address] [id number] Eosinophils/100 WBC Auto (Bld) 1 % Normal [facility] Work Phone: Erythrocyte distribution width (RBC) [Ratio] 13.7 % Normal 12.3-15.4 [facility] Work Phone: Comment on above: PATIENT WAS FASTINGP ERFORMED BY: [facility] [id number] Erythrocyte distribution width Auto Ratio (RBC) 13.7 % Normal 12.3-15.4 [facility] Work Phone: Hematocrit (Bld) [Volume fraction] 44.2 % Normal 34.0-46.6 [facility] Work Phone: Comment on above: PATIENT WAS FASTINGP ERFORMED BY: [place] [id number] [facility] [id number] Hematocrit Auto Volume Fraction (Bld) 44.2 % Normal 34.0-46.6 [facility] Work Phone: Hemoglobin mass conc (Bld) 15.3 g/dL Normal 11.1-15.9 [facility] Work Phone: Comment on above: PATIENT WAS FASTINGP ERFORMED BY: [place] [id number] [facility] [id number] Immature granulocytes #/vol (Bld) 0.0 {x10E3/uL} Normal 0.0-0.1 [facility] Work Phone: Comment on above: PATIENT WAS FASTINGP ERFORMED BY: [place] [id number] [facility] [id number] Immature granulocytes (Bld) [#/Vol] 0.0 10*3/uL Normal 0.0-0.1 [facility]; [facility] Work Phone: Immature granulocytes/100 WBC (Bld) 0 % Normal [facility] Work Phone: Comment on above: PATIENT WAS FASTINGP ERFORMED BY: LabMclaren Car[facility] Region6370 [facility] [id number] Lymphocytes (Bld) [#/Vol] 2.1 {x10E3/uL} Normal 0.7-3.1 [facility] Work Phone: Comment on above: PATIENT WAS FASTINGP ERFORMED BY: [place] [id number] [facility] [id number] Lymphocytes (Bld) [#/Vol] 2.1 10*3/uL Normal 0.7-3.1 [facility]; [facility] Work Phone: Lymphocytes Auto #/vol (Bld) 2.1 {x10E3/uL} Normal 0.7-3.1 [facility] Work Phone: Lymphocytes/100 WBC (Bld) 30 % Normal [facility] Work Phone: Comment on above: PATIENT WAS FASTINGP ERFORMED BY: VENTURA [place] [id number] [facility] [id number] Lymphocytes/100 WBC Auto (Bld) 30 % Normal [facility] Work Phone: MCH (RBC) [Entitic mass] 29.2 pg Normal 26.6-33.0 [facility] Internal Medicine Work Phone: Comment on above: PATIENT WAS FASTINGP ERFORMED BY: VENTURA [place] [id number] [facility] [id number] MCH Auto Entitic mass (RBC) 29.2 pg Normal 26.6-33.0 [facility] Internal Medicine Work Phone: MCHC (RBC) [Mass/Vol] 34.6 g/dL Normal 31.5-35.7 [facility] Internal Medicine Work Phone: Comment on above: PATIENT WAS FASTINGP ERFORMED BY: VENTURA [place] [id number] [facility] [id number] MCHC Auto mass conc (RBC) 34.6 g/dL Normal 31.5-35.7 [facility] Internal Medicine Work Phone: MCV (RBC) [Entitic vol] 84 fL Normal 79-97 [facility] Internal Medicine Work Phone: Comment on above: PATIENT WAS FASTINGP ERFORMED BY: [place] [id number] [facility] [id number] MCV Auto Entitic volume (RBC) 84 fL Normal 79-97 [facility] Internal Medicine Work Phone: Monocytes (Bld) [#/Vol] 0.7 {x10E3/uL} Normal 0.1-0.9 [facility] Work Phone: Comment on above: PATIENT WAS FASTINGP ERFORMED BY: VENTURA [employer] Ixyxqm4357 [facility] [id number] Monocytes (Bld) [#/Vol] 0.7 10*3/uL Normal 0.1-0.9 [facility]; [facility] Work Phone: Monocytes Auto #/vol (Bld) 0.7 {x10E3/uL} Normal 0.1-0.9 [facility] Medicine Work Phone: Monocytes/100 WBC (Bld) 10 % Normal [facility] Work Phone: Comment on above: PATIENT WAS FASTINGP ERFORMED BY: VENTURA Next Heathcarereyna GalvanZmoxdc2589 [facility] [id number] Monocytes/100 WBC Auto (Bld) 10 % Normal [facility] Work Phone: Neutrophils (Bld) [#/Vol] 4.1 {x10E3/uL} Normal 1.4-7.0 [facility] Work Phone: Comment on above: PATIENT WAS FASTINGP ERFORMED BY: VENTURA DoubleBeamLizette GalvanDpasyf7787 [facility] [id number] Neutrophils (Bld) [#/Vol] 4.1 10*3/uL Normal 1.4-7.0 [facility]; [facility] Work Phone: Neutrophils Auto #/vol (Bld) 4.1 {x10E3/uL} Normal 1.4-7.0 [facility] Work Phone: Neutrophils/100 WBC (Bld) 59 % Normal [facility] Work Phone: Comment on above: PATIENT WAS FASTINGP ERFORMED BY: Next HeathcareDonald [place] [id number] [facility] [id number] Neutrophils/100 WBC Auto (Bld) 59 % Normal [facility] Work Phone: Platelets (Bld) [#/Vol] 143 {x10E3/uL} Abnormal 150-379 [facility] Work Phone: Comment on above: PATIENT WAS FASTINGP ERFORMED BY: Next HeathcareHackensack University Medical CenterPzlxto6865 [facility] [id number] Platelets (Bld) [#/Vol] 143 10*3/uL Abnormal 150-379 [facility]; [facility] Work Phone: Platelets Auto #/vol (Bld) 143 {x10E3/uL} Abnormal 150-379 [facility] Work Phone: RBC (Bld) [#/Vol] 5.24 {x10E6/uL} Normal 3.77-5.28 [facility] Internal Medicine Work Phone: Comment on above: PATIENT WAS FASTINGP ERFORMED BY: [employer] Whunxm9499 [facility] [id number] RBC (Bld) [#/Vol] 5.24 10*6/uL Normal 3.77-5.28 [facility]; [facility] Work Phone: RBC Auto #/vol (Bld) 5.24 {x10E6/uL} Normal 3.77-5.28 [facility] Work Phone: WBC (Bld) [#/Vol] 7.0 {x10E3/uL} Normal 3.4-10.8 [facility] Internal Medicine Work Phone: Comment on above: PATIENT WAS FASTINGP ERFORMED BY: LabMclaren Caro Region6370 [facility] [id number] WBC (Bld) [#/Vol] 7.0 10*3/uL Normal 3.4-10.8 [facility] Internal Medicine; [facility] Work Phone: WBC Auto #/vol (Bld) 7.0 {x10E3/uL} Normal 3.4-10.8 [facility] Work Phone: Lipid Panel ([id number])Ordered B y: Supervisor Gas Meter Repair on 03-16-2016 Cholesterol in HDL mass conc 53 mg/dL Normal [facility] Work Phone: Comment on above: PATIENT WAS FASTINGP ERFORMED BY: VENTURA LabCoreyna Poojvr7114 [address] RoadDublin [place] [id number] Cholesterol in LDL mass conc 186 mg/dL Abnormal 0-99 [facility] Work Phone: Comment on above: PATIENT WAS FASTINGP ERFORMED BY: VENTURA LabLizette GalvanFgsiwm8638 [address] Roadblin [place] [id number] Cholesterol in LDL/Cholesterol in HDL mass ratio 3.5 {ratio_units} Abnormal 0.0-3.2 [facility] Work Phone: Comment on above: LDL/HDL Ratio Men Wo men 1/2 Avg.Risk 1.0 1.5 Avg.Risk 3.6 3.2 2X Avg.Risk 6.2 5.0 3X Avg.Risk 8.0 6.1 PATIENT WAS FASTINGP ERFORMED BY: VENTURA LabLizette GalvanTaepzc7848 [address]e RoadDuin [place] [id number] Cholesterol in VLDL mass conc 16 mg/dL Normal 5-40 [facility] Work Phone: Comment on above: PATIENT WAS FASTINGP ERFORMED BY: VENTURA LabLizette GalvanQeocom7[address] RoadDublin [place] [id number] Cholesterol mass conc 255 mg/dL Abnormal 100-199 Com prehensive Internal Medicine Work Phone: Comment on above: PATIENT WAS FASTINGP ERFORMED BY: VENTURA LabLizette GalvanGrnmyl[address] [facility] HospitalDublin [place] [id number] Triglyceride mass conc 82 mg/dL Normal 0-149 Co cox monettehensive Internal Medicine Work Phone: Comment on above: PATIENT WAS FASTINGP ERFORMED BY: VENTURA [facility] Bozawb[address] [facility] HospitalDublin [place] [id number] Metabolic Panel, Comprehensi ve ([id number])Ordered By: Supervisor Gas Meter Repair on 03-16-2016 Albumin mass conc 4.5 g/dL Normal 3.6-4.8 Compreh ensive Internal Medicine Work Phone: Comment on above: PATIENT WAS FASTINGP ERFORMED BY: VENTURA [facility] Qcyhrt[address] [facility] [place] [id number] Albumin/Globulin mass ratio 1.7 {ratio} Normal 1.1-2.5 [facility] Internal Medicine Work Phone: Comment on above: PATIENT WAS FASTINGP ERFORMED BY: VENTURA GianfrancoLizette GalvanMfxtmc6640 [address] Roadblin [place] [id number] ALP [Catalytic activity/Vol] 97 U/L Normal 39-117 [facility]; [facility] Internal Medicine Work Phone: ALP enzyme act/vol 97 [iU]/L Normal 39-117 [facility] Internal Medicine Work Phone: Comment on above: PATIENT WAS FASTINGP ERFORMED BY: VENTURA Galvanlin[address] [facility] [id number] ALT [Catalytic activity/Vol] 14 U/L Normal 0-32 [facility]; [facility] Internal Medicine Work Phone: ALT enzyme act/vol 14 [iU]/L Normal 0-32 [facility] Internal Medicine Work Phone: Comment on above: PATIENT WAS FASTINGP ERFORMED BY: VENTURA Galvanlin6370 [address]e RoadFirstHealth [facility] [id number] AST [Catalytic activity/Vol] 16 U/L Normal 0-40 [facility] Internal Medicine; [facility] Internal Medicine Work Phone: AST enzyme act/vol 16 [iU]/L Normal 0-40 [facility] Internal Medicine Work Phone: Comment on above: PATIENT WAS FASTINGP ERFORMED BY: VENTURA [facility] Rfpteq0647 [address] RoadAtrium Health Harrisburgin [place] [id number] Bilirubin mass conc 0.5 mg/dL Normal 0.0-1.2 [facility] Internal Medicine Work Phone: Comment on above: PATIENT WAS FASTINGP ERFORMED BY: VENTURA LabCo Zddnix5992 [address] Roadblin [place] [id number] Calcium mass conc 9.0 mg/dL Normal 8.7-10.3 [facility] Internal Medicine Work Phone: Comment on above: PATIENT WAS FASTINGP ERFORMED BY: VENTURA LabCo Fgimte8746 [facility] [id number] Chloride molar conc 103 mmol/L Normal 96-106 Compr ehensive Internal Medicine Work Phone: Comment on above: PATIENT WAS FASTINGP ERFORMED BY: VENTURA Porfirio Hnrdzg3958 [facility] [id number] CO2 molar conc 21 mmol/L Normal 18-29 Comprehens mehdi Internal Medicine Work Phone: Comment on above: PATIENT WAS FASTINGP ERFORMED BY: VENTURA [facility]6370 [facility] [id number] Creatinine mass conc 1.01 mg/dL Abnormal 0.57-1.00 Comp rehensive Internal Medicine Work Phone: Comment on above: PATIENT WAS FASTINGP ERFORMED BY: VENTURA [facility]6370 [facility] [id number] GFR/1.73 sq M predicted among blacks CKD-EPI vol rate/area (S/P/Bld) 66 mL/min/1.73 Normal [facility] Work Phone: Comment on above: PATIENT WAS FASTINGP ERFORMED BY: VENTURA [facility]6370 [facility] [id number] GFR/1.73 sq M predicted among non-blacks CKD-EPI vol rate/area (S/P/Bld) 57 mL/min/1.73 Abnormal Comprehensiv e Internal Medicine Work Phone: Comment on above: PATIENT WAS FASTINGP ERFORMED BY: VENTURA [facility]6370 [facility] [id number] Globulin (S) [Mass/Vol] 2.6 g/dL Normal 1.5-4.5 [facility] Work Phone: Comment on above: PATIENT WAS FASTINGP ERFORMED BY: LabMclaren [facility] Region6370 [facility] [id number] Globulin Calculated mass conc (S) 2.6 g/dL Normal 1.5-4.5 [facility] Work Phone: Glucose mass conc 85 mg/dL Normal 65-99 Compreh ensive Internal Medicine Work Phone: Comment on above: PATIENT WAS FASTINGP ERFORMED BY: VENTURA Galvanlin[address] [facility]in [place] [id number] Potassium molar conc 4.3 mmol/L Normal 3.5-5.2 Comp rehensive Internal Medicine Work Phone: Comment on above: PATIENT WAS FASTINGP ERFORMED BY: VENTURA Salter[address] [facility] [id number] Protein mass conc 7.1 g/dL Normal 6.0-8.5 Compreh ensive Internal Medicine Work Phone: Comment on above: PATIENT WAS FASTINGP ERFORMED BY: VENTURA Salter6370 [facility] [id number] Sodium molar conc 141 mmol/L Normal 134-144 Compreh ensive Internal Medicine Work Phone: Comment on above: PATIENT WAS FASTINGP ERFORMED BY: VENTURA Salter6370 [facility] [id number] Urea nitrogen mass conc 24 mg/dL Normal 8-27 [facility] Work Phone: Comment on above: PATIENT WAS FASTINGP ERFORMED BY: VENTURA Salter6370 [facility] [id number] Urea nitrogen/Creatinine mass ratio 24 mg/mg Normal 11- [facility] Work Phone: Comment on above: PATIENT WAS FASTINGP ERFORMED BY: VENTURA Salter6370 [facility] [id number] TSH ([id number])Ordered By: Thaddeuse m Nurses' Registry Director on 03-16-2016 Thyrotropin Qn 1.990 {uIU/mL} Normal 0.450-4.50 0 [facility] Work Phone: Comment on above: PATIENT WAS FASTINGP ERFORMED BY: VENUTRA Galvanlin6370 [facility] [id number]; OV next week MICROALBUMINOrdered By: Syst em Nurses' Registry Director on 03-15-2016 Albumin DL <= 20 mg/L mass conc (U) 8.6 ug/mL Normal [facility] Work Phone: Comment on above: today; PATIENT NOT F ASTINGPERFORMED BY: [facility] Aepktz[address] [facility] [id number] Information: SRC: Albumin/Creatinine mass ratio (U) 7.4 {mg/g_creat} Normal 0.0-30.0 [facility] Work Phone: Comment on above: today; PATIENT NOT F ASTINGPERFORMED BY: [facility] Rsfexa[address] [facility] [id number] Information: SRC:UC Creatinine mass conc (U) 116.7 mg/dL Normal [facility] Work Phone: Comment on above: today; PATIENT NOT F ASTINGPERFORMED BY: [facility] Gvuuov1666 [facility] [id number] Information: SRC: URINE WANDER CULTURE-IDENTIF[place] ([id number])Ordered By: Supervisor Gas Meter Repair on 03-15-2016 Bacteria identified Cx Nom (U) Final report Abnormal [facility] Work Phone: Comment on above: PATIENT NOT FASTINGP ERFORMED BY: CB [facility] Jomixp7452 [facility] [id number] Bacteria identified Cx Nom (U) BETAGB Abnormal [facility] Work Phone: Comment on above: Beta hemolytic Strep tococcus, group B10,000-25,000 colony forming units per mLPenicillin and ampicillin are drugs of choice for treatment ofbeta-hemolytic streptococcal infections. Susceptibility testing ofpenicillins and other beta-lactam agents approved by the FDA fortreatment of beta-hemolytic streptococcal infections need not beperformed routinely because nonsusceptible isolates are extremelyrare in any beta-hemolytic streptococcus and have not been reportedfor Streptococcus pyogenes (group A). (CLSI 2011) PATIENT NOT FASTINGP ERFORMED BY: CB [facility] Wlxhzl1027 [facility] [id number] Bacteria identified Cx Nom (U) Lactobacillus species Normal Comprehens mehdi Internal Medicine Work Phone: Comment on above: 10,000-25,000 colony forming units per mLSusceptibility not normally performed on this organism. PATIENT NOT FASTINGP ERFORMED BY: LabCoHackensack University Medical CenterFmwtgr[address] [facility] [id number] Urinalysis, Office ([id number])Or dered By: Sherrill Payton on 03-15-2016 Bilirubin Ql (U) Negative Normal Comprehe nsive Internal Medicine Work Phone: Comment on above: today Bilirubin Ql (U) Negative Normal Comprehe nsive Internal Medicine; [facility] Work Phone: Glucose Test strip (U) [Mass/Vol] Negative Normal [facility]; [facility] Work Phone: Glucose Test strip mass conc (U) Negative Normal [facility] Work Phone: Comment on above: today Hemoglobin Ql (U) Non Hemolyzed Moderate Normal [facility] Work Phone: Comment on above: today Hemoglobin Test strip Ql (U) Non Hemolyzed Moderate Normal Comprehen sive Internal Medicine Work Phone: Ketones Ql (U) Negative Normal Comprehens mehdi Internal Medicine Work Phone: Comment on above: today Ketones Ql (U) Negative Normal Comprehens mehdi Internal Medicine; [facility] Work Phone: Leukocyte esterase Test strip Ql (U) Moderate Normal [facility] Work Phone: Comment on above: today Nitrite Ql (U) Negative Normal Comprehens mehdi Internal Medicine Work Phone: Comment on above: today Nitrite Ql (U) Negative Normal Comprehens mehdi Internal Medicine; [facility] Work Phone: Nitrite Test strip Ql (U) Negative Normal [facility] Work Phone: pH (U) 6.5 [pH] Normal [facility] Work Phone: Comment on above: today pH Test strip (U) 6.5 [pH] Normal Compreh ensive Internal Medicine Work Phone: Protein Ql (U) Negative Normal Comprehens mehdi Internal Medicine Work Phone: Comment on above: today Protein Ql (U) Negative Normal Comprehens mehdi Internal Medicine; [facility] Work Phone: Protein Test strip Ql (U) Negative Normal [facility] Work Phone: Specific gravity Relative Density (U) 1.020 1 Normal Comprehensi ve Internal Medicine Work Phone: Comment on above: today Urobilinogen mass/time (24H U) Normal Normal [facility] Work Phone: Comment on above: today URINE WANDER CULTURE-SUMI COL C OUNT ([id number])Ordered By: Supervisor Gas Meter Repair on 04-27-2015 Bacteria identified Cx Nom (U) Final report Abnormal [facility] Work Phone: Comment on above: PATIENT NOT FASTINGP ERFORMED BY: VENTURA [employer] Blrxsg5506 [facility] [id number] Information: SRC:UR [id number] Bacteria identified Cx Nom (U) BETAGB Abnormal [facility] Work Phone: Comment on above: Beta hemolytic Strep tococcus, group B25,000-50,000 colony forming units per mLPenicillin and ampicillin are drugs of choice for treatment ofbeta-hemolytic streptococcal infections. Susceptibility testing ofpenicillins and other beta-lactam agents approved by the FDA fortreatment of beta-hemolytic streptococcal infections need not beperformed routinely because nonsusceptible isolates are extremelyrare in any beta-hemolytic streptococcus and have not been reportedfor Streptococcus pyogenes (group A). (CLSI 2011) PATIENT NOT FASTINGP ERFORMED BY: [employer] Ynubyi8396 [facility] [id number] Information: SRC:URC K15699 CBC W/Diff, AutomatedOrdered By: Supervisor Gas Meter Repair on 04-22-2015 Absolute Lymph 1.45 {X10_3/ul} Normal 0.83-4.51 Compr ehensive Internal Medicine Work Phone: Absolute Neut 3.7 {X10_3/uL} Normal 2.0-7.7 Compreh ensive Internal Medicine Work Phone: Comment on above: [facility] [address] [place], [address] Basophils/100 WBC (Bld) 0.5 % Normal 0-1 [facility] Work Phone: Comment on above: [facility] [address] [place], [address] Basophils/100 WBC Auto (Bld) 0.5 % Normal 0-1 [facility] Work Phone: Eosinophils/100 WBC (Bld) 2.4 % Normal 0-5 [facility] Work Phone: Comment on above: [place] [address] [place], [address] Eosinophils/100 WBC Auto (Bld) 2.4 % Normal 0-5 [facility] Work Phone: Erythrocyte distribution width (RBC) [Ratio] 13.1 % Normal 11.6-14.6 [facility] Work Phone: Comment on above: [place] [address] [place], [address] Erythrocyte distribution width Auto Ratio (RBC) 13.1 % Normal 11.6-14.6 [facility] Work Phone: Hematocrit (Bld) [Volume fraction] 42.8 % Normal 37-47 [facility] Work Phone: Comment on above: [place] [address] [place], [address] Hematocrit Auto Volume Fraction (Bld) 42.8 % Normal 37-47 [facility] Work Phone: Hemoglobin mass conc (Bld) 14.7 g/dL Normal 12.0-15.0 [facility] Work Phone: Comment on above: [place] [address] [place], [address] IM GRAN % 0.200 % Normal 0.0-0.9 [facility] Work Phone: Comment on above: IG% - Immature Granu locytes (promyelocytes, myelocytes andmetamyelocytes) > 1% indicates that a LEFT SHIFT is Present. [facility] [address] [place], [address] Lymphocytes (Bld) [#/Vol] 1.45 {X10_3/ul} Normal 0.83-4.51 [facility] Work Phone: Comment on above: [facility] [address] [place], [address] Lymphocytes/100 WBC (Bld) 24.5 % Normal 19-41 [facility] Work Phone: Comment on above: [place] [address] [place], [address] Lymphocytes/100 WBC Auto (Bld) 24.5 % Normal 19-41 [facility] Work Phone: MCH (RBC) [Entitic mass] 29.7 pg Normal 27.0-32.0 [facility] Work Phone: Comment on above: [place] [address] [place], [address] MCH Auto Entitic mass (RBC) 29.7 pg Normal 27.0-32.0 [facility] Work Phone: MCHC (RBC) [Mass/Vol] 34.3 {g/gl} Normal 32-36 [facility] Internal Medicine Work Phone: Comment on above: [facility] [address] [place], [address] MCHC Auto mass conc (RBC) 34.3 {g/gl} Normal 32-36 [facility] Work Phone: MCV (RBC) [Entitic vol] 86.5 fL Normal 81-99 [facility] Work Phone: Comment on above: [facility] [address] [place], [address] MCV Auto Entitic volume (RBC) 86.5 fL Normal 81-99 [facility] Work Phone: Monocytes/100 WBC Auto (Bld) 9.5 % Normal 0-10 [facility] Work Phone: Comment on above: [facility] [address] [place], [address] Neutrophils/100 WBC (Bld) 62.9 % Normal 47-70 [facility] Work Phone: Comment on above: [facility] [address] [place], [address] Neutrophils/100 WBC Auto (Bld) 62.9 % Normal 47-70 [facility] Work Phone: Platelet mean volume (Bld) [Entitic vol] 8.6 fL Normal 6.2-12.0 Comprehensiv e Internal Medicine Work Phone: Comment on above: [facility] [address] [place], [address] Platelet mean volume Auto Entitic volume (Bld) 8.6 fL Normal 6.2-12.0 [facility] Work Phone: Platelets (Bld) [#/Vol] 151 10*3/uL Normal 150-450 [facility] Work Phone: Comment on above: [facility] [address] [place], [address] Platelets Auto #/vol (Bld) 151 10*3/uL Normal 150-450 [facility] Work Phone: RBC (Bld) [#/Vol] 4.95 {M/mm3} Normal 4.2-5.4 [facility] Internal Medicine Work Phone: Comment on above: [facility] [address] [place], [address] RBC Auto #/vol (Bld) 4.95 {M/mm3} Normal 4.2-5.4 Co mprehensive Internal Medicine Work Phone: RDW SD 40.1 fL Normal 35.1-43.9 [facility] Work Phone: Comment on above: [facility] [address] [place], [place], [id number] WBC (Bld) [#/Vol] 5.9 10*3/uL Normal 4.4-11.0 Compre [facility] Internal Medicine Work Phone: Comment on above: [facility] [address] [place], [place], [id number] WBC Auto #/vol (Bld) 5.9 10*3/uL Normal 4.4-11.0 [facility] prehensive Internal Medicine Work Phone: Comprehensive Metabolic Prof ilOrdered By: Supervisor Gas Meter Repair on 04-22-2015 Comprehensive metabolic 2000 panel 144 mmol/L Normal 136-145 Comprehensi ve Internal Medicine Work Phone: Comment on above: [facility] [address] [place], [place], [id number] Comprehensive metabolic 2000 panel 1.0 {RATIO} Normal 0.9-2.4 Comprehensi ve Internal Medicine Work Phone: Comment on above: [facility] [address] [place], [place], [id number] Comprehensive metabolic 2000 panel 19.0 {RATIO} Normal 10-20 Comprehensi ve Internal Medicine Work Phone: Comment on above: [facility] [address] [place], [place], [phone] Comprehensive metabolic 2000 panel 95 mg/dL Normal 70-110 Comprehensi ve Internal Medicine Work Phone: Comment on above: [facility] [address] [place], [place], [id number] Comprehensive metabolic 2000 panel 58 mL/min Abnormal Comprehensi ve Internal Medicine Work Phone: Comment on above: Non- GFR Calc [facility] [address] [place], [place], [address] Comprehensive metabolic 2000 panel 7.1 g/dL Normal 6.4-8.2 Comprehensi ve Internal Medicine Work Phone: Comment on above: [facility] [address] [place], [place], [phone] Comprehensive metabolic 2000 panel 3.6 g/dL Normal 3.4-5.0 Comprehensi ve Internal Medicine Work Phone: Comment on above: [facility] [address] [place], [place], [phone] Comprehensive metabolic 2000 panel 3.5 g/dL Normal 2.3-3.5 Comprehensi ve Internal Medicine Work Phone: Comment on above: [facility] [address] [place], [place], [phone] Comprehensive metabolic 2000 panel 8.8 mg/dL Normal 8.5-10.1 Comprehensi ve Internal Medicine Work Phone: Comment on above: [facility] [address] [place], [place], [phone] Comprehensive metabolic 2000 panel 18 U/L Normal 15-37 Comprehensi ve Internal Medicine Work Phone: Comment on above: [facility] [address] [place], [place], [address] Comprehensive metabolic 2000 panel 71 mL/min Normal Comprehensi ve Internal Medicine Work Phone: Comment on above: GFR Calc [facility] [address] [place], [place], [phone] Comprehensive metabolic 2000 panel 1.00 mg/dL Normal 0.55-1.20 Comprehensi ve Internal Medicine Work Phone: Comment on above: The validity of the calculated GFR AND GFRAA in patients over70 years has not been determined. Clinical correlation isessential. [facility] [address] [place], [address] Comprehensive metabolic 2000 panel 19 mg/dL Abnormal 7-18 Comprehensi ve Internal Medicine Work Phone: Comment on above: [facility] [address] [place], [address] Comprehensive metabolic 2000 panel 95 U/L Normal 50-136 Comprehensi ve Internal Medicine Work Phone: Comment on above: [facility] [address] [place], [address] Comprehensive metabolic 2000 panel 19 U/L Normal 12-78 Comprehensi ve Internal Medicine Work Phone: Comment on above: [facility] [address] [place], [place], [phone] Comprehensive metabolic 2000 panel 0.30 mg/dL Normal 0.20-1.00 Comprehensi ve Internal Medicine Work Phone: Comment on above: [facility] [address] [place], [place], [address] Comprehensive metabolic 2000 panel 4.2 mmol/L Normal 3.5-5.1 Comprehensi ve Internal Medicine Work Phone: Comment on above: [facility] [address] [place], [place], [address] Comprehensive metabolic 2000 panel 7 1 Normal 5-15 Comprehensi ve Internal Medicine Work Phone: Comment on above: [facility] [address] [place], [address] Comprehensive metabolic 2000 panel 28.0 mmol/L Normal 21.0-32.0 Comprehensi ve Internal Medicine Work Phone: Comment on above: [facility] [address] [place], [address] Comprehensive metabolic 2000 panel 109 mmol/L Abnormal 98-107 Comprehensi ve Internal Medicine Work Phone: Comment on above: [facility] [address] [place], [place], [id number] Lipid ProfileOrdered By: aKrri tem Nurses' Registry Director on 04-22-2015 Cholesterol in HDL mass conc 50 mg/dL Normal Comprehensive Internal Medicine Work Phone: Comment on above: Reference Range HDL <40 mg/dL Low HDL Cholesterol HDL >or= 60 mg/dL High HDL Cholesterol [facility] [address] [place], [place], [id number] Cholesterol in LDL [Mass/Vol] 145 mg/dL Abnormal 0-130 [facility] Medicine Work Phone: Comment on above: [facility] [address] [place], [place], [id number] Cholesterol in LDL mass conc 145 mg/dL Abnormal 0-130 [facility] Work Phone: Cholesterol in VLDL mass conc 43 mg/dL Abnormal 5-40 [facility] Medicine Work Phone: Comment on above: [facility] [address] [place], [place], [id number] Cholesterol mass conc 238 mg/dL Abnormal [facility] prehensive Internal Medicine Work Phone: Comment on above: <200 mg/dL Desirable 200-240 mg/dL Borderline >240 mg/dL High Risk [facility] [address] [place], [place], [id number] Triglyceride mass conc 213 mg/dL Abnormal Co [facility] Work Phone: Comment on above: Serum Triglycerides Reference Interval Normal <150 mg/dL Borderline high 150 - 199 mg/dL High 200 - 499 mg/dL Very High > or = 500 mg/dL [facility] [address] [place], [place], [id number] Thyroid Stim Hormone (TSH)Or dered By: Supervisor Gas Meter Repair on 04-22-2015 Thyrotropin Qn 1.00 {uIU/mL} Normal 0.358-3.74 Compreh ensive Internal Medicine Work Phone: Comment on above: [facility] [address] [place], [place], [address] Urinalysis, CompleteOrdered By: Supervisor Gas Meter Repair on 04-22-2015 BACTERIA 1+ Normal [facility] Work Phone: Comment on above: How was Urine Obtain ed? [facility] [address] [place], [place], [address] CLARITY Sl. Cloudy Normal [facility] Medicine Work Phone: Comment on above: How was Urine Obtain ed? [facility] [address] [place], [place], [address] COLOR Yellow Normal [facility] Medicine Work Phone: Comment on above: How was Urine Obtain ed? [facility] [address] [place], [address] LEUK ESTERASE 500 /ul Abnormal Comprehensi ve Internal Medicine Work Phone: Comment on above: How was Urine Obtain ed? [facility] [address] [place], [place], [id number] MUCUS, URINE 0 SEEN Normal Comprehensiv e Internal Medicine Work Phone: Comment on above: How was Urine Obtain ed? [facility] [address] [place], [address] NITRITE UR Negative Normal [facility] Work Phone: Comment on above: How was Urine Obtain ed? [facility] [address] [place], [place], [id number] OCCULT BLOOD-UR 50 /ul Abnormal Comprehen sive Internal Medicine Work Phone: Comment on above: How was Urine Obtain ed? [facility] [address] [place], [place], [id number] pH UR 7.0 1 Normal 5.0 - 8.0 [facility] Medicine Work Phone: Comment on above: How was Urine Obtain ed? [facility] [address] [place], [address] Protein mass conc (U) Negative Normal Com prehensive Internal Medicine Work Phone: Comment on above: How was Urine Obtain ed? [facility] [address] [place], [address] RBC (U) [#/Vol] 0-5 SEEN Normal 0-5 Comprehsharp [facility] Internal Medicine Work Phone: Comment on above: How was Urine Obtain ed? [facility] [address] [place], [address] RBC Test strip #/vol (U) 0-5 SEEN Normal 0-5 [facility] Medicine Work Phone: SP.GR. DIPSTX 1.015 1 Normal 1.002-1.03 0 [facility] Medicine Work Phone: Comment on above: How was Urine Obtain ed? [facility] [address] [place], [address] SQUAM EPI 0-5 SEEN Normal 5-10 [facility] Internal Medicine Work Phone: Comment on above: How was Urine Obtain ed? [facility] [address] [place], [address] UROBILI Normal Normal [facility] Medicine Work Phone: Comment on above: How was Urine Obtain ed? [facility] [address] [place], [address] WBC 25-50 SEEN Normal 0-5 [facility] Internal Medicine Work Phone: Comment on above: How was Urine Obtain ed? [facility] [address] [place], [id number] Vitamin W03Blwctyh By: Valeria Barraza on 04-22-2015 Cobalamin (Vitamin B12) mass conc 420 pg/mL Normal 211-911 [facility] Medicine Work Phone: Comment on above: [facility] [address] [place], [address] Vitamin D,25 HydroxyOrdered By: Supervisor Gas Meter Repair on 04-22-2015 Vitamin D 25-OH 26.5 ng/mL Normal Comprehen [facility] Internal Medicine Work Phone: Comment on above: Vitamin D 25(OH) Sta tus Range Deficiency <20 ng/mL (50nmol/L) Insuffciency 20 - 30 ng/mL (50 - 75 nmol/L) Sufficiency 30 - 100 ng/mL (75 - 250 nmol/L) Toxicity >100 ng/mL (>250 nmol/L) Vitamin D,25 Hydroxy 26.5 ng/mL Normal Comp rehensive Internal Medicine Work Phone: Comment on above: Vitamin D 25(OH) Sta tus Range Deficiency <20 ng/mL (50nmol/L) Insuffciency 20 - 30 ng/mL (50 - 75 nmol/L) Sufficiency 30 - 100 ng/mL (75 - 250 nmol/L) Toxicity >100 ng/mL (>250 nmol/L) [facility] [address] [place], [place], [id number] Basic Metabolic Profile (BMP )Ordered By: Supervisor Gas Meter Repair on 02-12-2015 Basic metabolic 2000 panel 5 1 Normal 5-15 [facility] Medicine Work Phone: Comment on above: [facility] [address] [place], [place], [phone] Basic metabolic 2000 panel 0.94 mg/dL Normal 0.55-1.20 [facility] Medicine Work Phone: Comment on above: The validity of the calculated GFR AND GFRAA in patients over70 years has not been determined. Clinical correlation isessential. [facility] [address] [place], [place], [phone] Basic metabolic 2000 panel 17 mg/dL Normal 7-18 Comprehensive Internal Medicine Work Phone: Comment on above: [facility] [address] [place], [place], [address] Basic metabolic 2000 panel 28.0 mmol/L Normal 21.0-32.0 [facility] Medicine Work Phone: Comment on above: [facility] [address] [place], [place], [address] Basic metabolic 2000 panel 111 mmol/L Abnormal 98-107 [facility] Medicine Work Phone: Comment on above: [facility] [address] [place], [place], [address] Basic metabolic 2000 panel 62 mL/min Normal [facility] Medicine Work Phone: Comment on above: Non- GFR Calc [facility] [address] [place], [place], [address] Basic metabolic 2000 panel 4.0 mmol/L Normal 3.5-5.1 [facility] Medicine Work Phone: Comment on above: [facility] [address] [place], [place], [address] Basic metabolic 2000 panel 144 mmol/L Normal 136-145 [facility] Medicine Work Phone: Comment on above: [facility] [address] [place], [address] Basic metabolic 2000 panel 9.2 mg/dL Normal 8.5-10.1 [facility] Medicine Work Phone: Comment on above: [facility] [address] [place], [address] Basic metabolic 2000 panel 18.0 {RATIO} Normal 10-20 [facility] Medicine Work Phone: Comment on above: [facility] [address] [place], [place], [address] Basic metabolic 2000 panel 76 mL/min Normal [facility] Medicine Work Phone: Comment on above: GFR Calc [facility] [address] [place], [place], [address] Basic metabolic 2000 panel 99 mg/dL Normal 70-110 [facility] Medicine Work Phone: Comment on above: [facility] [address] [place], [place], [address] URINE WANDER CULTURE (SUMI COL COUNT) ([id number])Ordered By: Supervisor Gas Meter Repair on 03-12-2013 Bacteria identified Cx Nom (U) Lactobacillus species Normal Comprehens mehdi Internal Medicine Work Phone: Comment on above: 50,000-100,000 colon y forming units per mLSusceptibility not normally performed on this organism. PATIENT NOT FASTINGP ERFORMED BY: [facility] [id number] Information: SRC: URINE Bacteria identified Cx Nom (U) Final report Normal [facility] Medicine Work Phone: Comment on above: PATIENT NOT FASTINGP ERFORMED BY: [email or web address] [id number] [facility] LimitedUofL [facility] [id number] Information: SRC: URINE Urinalysis, Office ([id number])Or dered By: Salena Barone on 03-12-2013 Bilirubin Ql (U) Negative Normal Comprehe nsive Internal Medicine Work Phone: Bilirubin Ql (U) Negative Normal Comprehe nsive Internal Medicine; [facility] Work Phone: Glucose Test strip (U) [Mass/Vol] Negative Normal [facility]; [facility] Work Phone: Glucose Test strip mass conc (U) Negative Normal [facility] Work Phone: Hemoglobin Ql (U) Hemolyzed Small Normal Co mprehensive Internal Medicine Work Phone: Hemoglobin Test strip Ql (U) Hemolyzed Small Normal [facility] Work Phone: Ketones Ql (U) Negative Normal Comprehens mehdi Internal Medicine Work Phone: Ketones Ql (U) Negative Normal Comprehens mehdi Internal Medicine; [facility] Work Phone: Leukocyte esterase Test strip Ql (U) Small Normal [facility] Work Phone: Nitrite Ql (U) Negative Normal Comprehens mehdi Internal Medicine Work Phone: Nitrite Ql (U) Negative Normal Comprehens mehdi Internal Medicine; [facility] Work Phone: Nitrite Test strip Ql (U) Negative Normal [facility] Work Phone: pH (U) 5.0 [pH] Normal [facility] Work Phone: pH Test strip (U) 5.0 [pH] Normal Compreh ensive Internal Medicine Work Phone: Protein Ql (U) Negative Normal Comprehens mehdi Internal Medicine Work Phone: Protein Ql (U) Negative Normal Comprehens mehdi Internal Medicine; [facility] Work Phone: Protein Test strip Ql (U) Negative Normal [facility] Work Phone: Specific gravity Relative Density (U) 1.020 1 Normal Comprehensi ve Internal Medicine Work Phone: Urobilinogen mass/time (24H U) Normal Normal [facility] Work Phone: CMPOrdered By: System Manage r on 01-22-2013 Albumin mass conc 3.9 g/dL Normal 3.4-5.0 Compreh ensive Internal Medicine Work Phone: Albumin/Globulin mass ratio 1.2 {RATIO} Normal 0.9-2.4 [facility] Work Phone: ALP enzyme act/vol 82 U/L Normal 50-136 [facility]pre [facility] Work Phone: ALT enzyme act/vol 24 U/L Normal 12-78 Compre [facility] Work Phone: AST enzyme act/vol 15 U/L Normal 15-37 [facility] Work Phone: Bilirubin mass conc 0.50 mg/dL Normal 0.00-1.00 Compr ehensive Internal Medicine Work Phone: Calcium mass conc 8.7 mg/dL Normal 8.5-10.1 Compreh ensive Internal Medicine Work Phone: Chloride molar conc 108 mmol/L Abnormal 98-107 Compr ehensive Internal Medicine Work Phone: CO2 molar conc 27.0 mmol/L Normal 21.0-32.0 Comprehen sive Internal Medicine Work Phone: Creatinine mass conc 0.9 mg/dL Normal 0.6-1.0 Comp rehensive Internal Medicine Work Phone: GFR/1.73 sq M predicted among non-blacks MDRD vol rate/area (S/P/Bld) 67 mL/min/{1.73_m2} Normal Comprehe nsive Internal Medicine Work Phone: Globulin Calculated mass conc (S) 3.3 g/dL Normal 2.7-4.2 [facility] Work Phone: Globulin mass conc (S) 3.3 g/dL Normal 2.7-4.2 Co mprehensive Internal Medicine Work Phone: Glucose mass conc 81 mg/dL Normal 70-110 Compreh ensive Internal Medicine Work Phone: Potassium molar conc 4.4 mmol/L Normal 3.5-5.1 Comp rehensive Internal Medicine Work Phone: Protein mass conc 7.2 g/dL Normal 6.4-8.2 Compreh ensive Internal Medicine Work Phone: Sodium molar conc 142 mmol/L Normal 136-145 Compreh ensive Internal Medicine Work Phone: Urea nitrogen mass conc 20 mg/dL Abnormal 7-18 Comprehensive [facility] Medicine Work Phone: Urea nitrogen/Creatinine mass ratio 22.2 {RATIO} Abnormal 10-20 [facility] Work Phone: CMP 7 1 Normal 5-15 [facility] Work Phone: CMP 81 mL/min Normal [facility] Work Phone: CMP 3.3 g/dL Normal 2.7-4.2 [facility] Work Phone: CMP 7.2 g/dL Normal 6.4-8.2 [facility] Medicine Work Phone: TSHOrdered By: System [employer] r on 01-22-2013 Thyrotropin Qn 1.55 {uIU/mL} Normal 0.358-3.74 [facility] Work Phone: UACOrdered By: System [employer] r on 01-22-2013 RBC (U) [#/Vol] 5-10 SEEN Normal 0-5 Comprehen [facility] Internal Medicine Work Phone: Comment on above: How was Urine Obtain ed? CLEAN CATCH WBC (U) [#/Vol] 10-25 SEEN Normal 0-5 Comprehsharp [facility] Internal Medicine Work Phone: Comment on above: How was Urine Obtain ed? CLEAN CATCH UAC 5-10 SEEN Normal 0-5 [facility] Internal Medicine Work Phone: UAC Clear Normal [facility] Work Phone: Comment on above: How was Urine Obtain ed? CLEAN CATCH UAC 0 SEEN Normal [facility] Work Phone: Comment on above: How was Urine Obtain ed? CLEAN CATCH UAC 2+ Normal [facility] Medicine Work Phone: Comment on above: How was Urine Obtain ed? CLEAN CATCH UAC 0-5 SEEN Normal 5-10 [facility] Medicine Work Phone: Comment on above: How was Urine Obtain ed? CLEAN CATCH UAC 10-25 SEEN Normal 0-5 [facility] Work Phone: UAC Yellow Normal [facility] Work Phone: Comment on above: How was Urine Obtain ed? CLEAN CATCH UAC 500 /ul Abnormal [facility] Work Phone: Comment on above: How was Urine Obtain ed? CLEAN CATCH UAC 50 /ul Abnormal [facility] Work Phone: Comment on above: How was Urine Obtain ed? CLEAN CATCH UAC Negative Normal [facility] Work Phone: Comment on above: How was Urine Obtain ed? CLEAN CATCH UAC Normal Normal [facility] Work Phone: Comment on above: How was Urine Obtain ed? CLEAN CATCH UAC 6.0 1 Normal 5.0 - 8.0 [facility] Work Phone: Comment on above: How was Urine Obtain ed? CLEAN CATCH UAC 1.020 1 Normal 1.002-1.03 0 [facility] Work Phone: Comment on above: How was Urine Obtain ed? CLEAN CATCH VITDOrdered By: System Manag er on 01-22-2013 VITD 22.8 mg/mL Normal [facility] Work Phone: Comment on above: Vitamin D 25(OH) Sta tus RangeDeficiency <20 ng/mL (50nmol/L)Insuffciency 20 - 30 ng/mL (50 - 75 nmol/L)Sufficiency 30 - 100 ng/mL (75 - 250 nmol/L)Toxicity >100 ng/mL (>250 nmol/L) BILAT SCRN DIGITAL & CADOrde red By: Supervisor Gas Meter Repair on 03-28-2012 BILAT SCRN DIGITAL & CAD See Note Normal [facility] Work Phone: Comment on above: MAMMOGRAPHY - BILATE RAL SCREENING REASON FOR EXAM: Female, 66 years old. Routine annual screeningexamination. PERTINENT HISTORY: Non-contributory. TECHNIQUE: Digital examination. Mediolateral oblique (MLO) andcraniocaudad (CC) views of both breasts were obtained. CAD: CAD wasperformed on this study. COMPARISON: Comparison is made with prior studies dated July 27ndDecember 05, 2007. FINDINGS:The breast composition is heterogeneously dense. There are no dominant masses or suspicious calcifications. No other significant abnormalities are identified. There has been nosignificant change since the prior study. IMPRESSION:Stable bilateral screening mammogram. Yearly follow-up recommended. (A) ASSESSMENT CATEGORY:BIRADS Category 2: Benign finding(s). A letter regarding these resultswill be sent to the patient by the facility within 30 days. Approximately 10% of breast cancers are not detected by mammography. Anormal mammogram should not delay biopsy of a clinically suspiciousabnormality. Signed:uJan Pablo Patel M.D.March 28, 2012 at 8:40:10 AM [id number] Signed GP/GP If you are the referring physician and would like to consult with theradiologist who provided this interpretation, please contact Jan Figueroa at [phone]. If this radiologist is unavailable, youwill be directed to another radiologist to assist. If you are a patient with a question regarding this report, pleasecontactyour referring physician directly. Professional Interpretation Provided By: [employer], Phone , These documents contain legally protected and confidential healthinformation intended only for the use of the individual or entity namedabove. If you are not the intended recipient, you are hereby notifiedthatany disclosure, copying, distribution, or other use of these documents isstrictly prohibited. If you have received this information in error,pleasenotify the sender immediately and arrange for the return or destructionofthese documents. Dictated on 03/28/12 0657 by Lea Patel MDranscribed on 03/28/12 0845 by ITS IMPORTSign by Juan Pablo Patel MD on 03/28/12 0846 Sign by: Juan Pablo Patel MD CMPOrdered By: System Manage r on 02-13-2012 Albumin mass conc 3.9 g/dL Normal 3.4-5.0 Compreh ensive Internal Medicine Work Phone: Albumin/Globulin mass ratio 1.1 {RATIO} Normal 0.9-2.4 [facility] Work Phone: ALP enzyme act/vol 72 U/L Normal 50-136 Compre hensive Internal Medicine Work Phone: ALT enzyme act/vol 28 U/L Normal 12-78 Compre hensive Internal Medicine Work Phone: Anion gap 3 molar conc 7 mmol/L Normal 5-15 Co mprehensive Internal Medicine Work Phone: Anion gap [Moles/Vol] 7 mmol/L Normal 5-15 Com prehensive Internal Medicine Work Phone: AST enzyme act/vol 20 U/L Normal 15-37 Compre hensive Internal Medicine Work Phone: Bilirubin mass conc 0.40 mg/dL Normal 0.00-1.00 Compr ehensive Internal Medicine Work Phone: Calcium mass conc 8.8 mg/dL Normal 8.5-10.1 Compreh ensive Internal Medicine Work Phone: Chloride molar conc 106 mmol/L Normal 98-107 Compr ehensive Internal Medicine Work Phone: CO2 molar conc 27.0 mmol/L Normal 21.0-32.0 Comprehen [facility] Internal Medicine Work Phone: Creatinine mass conc 1.0 mg/dL Normal 0.6-1.0 Comp [facility] Internal [facility] Work Phone: GFR/1.73 sq M predicted among blacks MDRD vol rate/area (S/P/Bld) 72 mL/min/{1.73_m2} Normal Comprehensiv e Internal Medicine Work Phone: GFR/1.73 sq M.predicted MDRD (S/P/Bld) [Vol rate/Area] 59 mL/min/{1.73_m2} Abnormal Comprehensiv e Internal Medicine Work Phone: GFR/1.73 sq M.predicted MDRD vol rate/area 59 mL/min/{1.73_m2} Abnormal Comprehensiv e Internal Medicine Work Phone: Globulin (S) [Mass/Vol] 3.5 g/dL Normal 2.7-4.2 [facility] Work Phone: Globulin Calculated mass conc (S) 3.5 g/dL Normal 2.7-4.2 [facility] Work Phone: Glucose mass conc 82 mg/dL Normal 70-110 Compreh ensive Internal Medicine Work Phone: Potassium molar conc 3.9 mmol/L Normal 3.5-5.1 Comp [facility] Internal [facility] Work Phone: Protein mass conc 7.4 g/dL Normal 6.4-8.2 Compreh ensive Internal Medicine Work Phone: Sodium molar conc 140 mmol/L Normal 136-145 Compreh ensive Internal Medicine Work Phone: Urea nitrogen mass conc 17 mg/dL Normal 7-18 [facility] Work Phone: Urea nitrogen/Creatinine mass ratio 17.0 {RATIO} Normal 10-20 [facility] Work Phone: CBCMDOrdered By: Briseyda lazar on 07-07-2011 Eosinophils/100 WBC (Bld) 3 % Normal 0-5 [facility] Work Phone: Eosinophils/100 WBC Auto (Bld) 3 % Normal 0-5 [facility] Work Phone: Erythrocyte distribution width (RBC) [Ratio] 13.4 % Normal 11.6-14.6 [facility] Work Phone: Erythrocyte distribution width Auto Ratio (RBC) 13.4 % Normal 11.6-14.6 [facility] Work Phone: Hematocrit (Bld) [Volume fraction] 42.9 % Normal 37-47 [facility] Work Phone: Hematocrit Auto Volume Fraction (Bld) 42.9 % Normal 37-47 [facility] Work Phone: Hemoglobin mass conc (Bld) 14.7 g/dL Normal 12.0-16.0 [facility] Work Phone: Lymphocytes/100 WBC (Bld) 26 % Normal 19-41 [facility] Work Phone: Lymphocytes/100 WBC Auto (Bld) 26 % Normal 19-41 [facility] Work Phone: MCH (RBC) [Entitic mass] 29.8 pg Normal 27.0-32.0 [facility] Work Phone: MCH Auto Entitic mass (RBC) 29.8 pg Normal 27.0-32.0 [facility] Internal Medicine Work Phone: MCHC (RBC) [Mass/Vol] 34.2 g/dL Normal 32-36 Com prehensive Internal Medicine Work Phone: MCHC Auto mass conc (RBC) 34.2 g/dL Normal 32-36 [facility] Work Phone: MCV (RBC) [Entitic vol] 87.3 fL Normal 81-99 [facility] Work Phone: MCV Auto Entitic volume (RBC) 87.3 fL Normal 81-99 [facility] Work Phone: Neutrophils (Bld) [#/Vol] 4.7 3/uL Normal 2.0-7.7 [facility] Work Phone: Neutrophils Auto #/vol (Bld) 4.7 3/uL Normal 2.0-7.7 [facility] Work Phone: Platelets (Bld) [#/Vol] 172 10*3/uL Normal 150-450 [facility] Work Phone: Platelets Auto #/vol (Bld) 172 10*3/uL Normal 150-450 [facility] Work Phone: RBC (Bld) [#/Vol] NORM C+C Normal Compreh ensive Internal Medicine Work Phone: RBC (Bld) [#/Vol] 4.91 {M/mm3} Normal 4.2-5.4 Compr ehensive Internal Medicine Work Phone: RBC Auto #/vol (Bld) 4.91 {M/mm3} Normal 4.2-5.4 Co mprehensive Internal Medicine Work Phone: RBC Auto #/vol (Bld) NORM C+C Normal Comp rehensive Internal Medicine Work Phone: WBC (Bld) [#/Vol] 7.1 10*3/uL Normal 4.4-11.0 Compre hensive Internal Medicine Work Phone: WBC Auto #/vol (Bld) 7.1 10*3/uL Normal 4.4-11.0 Com prehensive Internal Medicine Work Phone: CBCMD ADEQUATE Normal [facility] Work Phone: CBCMD 8 % Normal 0-10 [facility] Work Phone: CBCMD 63 % Normal 47-70 [facility] Work Phone: CBCMD 100 1 Normal [facility] Work Phone: CMPOrdered By: System Manage r on 07-07-2011 Albumin mass conc 4.2 g/dL Normal 3.4-5.0 Compreh ensive Internal Medicine Work Phone: Albumin/Globulin mass ratio 1.2 {RATIO} Normal 0.9-2.4 [facility] Work Phone: ALP enzyme act/vol 93 U/L Normal 50-136 Compre [facility] [facility] Work Phone: ALT enzyme act/vol 27 U/L Normal 12-78 [facility] Internal Medicine Work Phone: Anion gap 3 molar conc 11 mmol/L Normal 5-15 Co mprehensive Internal Medicine Work Phone: Anion gap [Moles/Vol] 11 mmol/L Normal 5-15 Com prehensive Internal Medicine Work Phone: AST enzyme act/vol 21 U/L Normal 15-37 Compre [facility] Work Phone: Bilirubin mass conc 0.60 mg/dL Normal 0.00-1.00 Compr ensive Internal Medicine Work Phone: Calcium mass conc 9.2 mg/dL Normal 8.5-10.1 Compreh ensive Internal Medicine Work Phone: Chloride molar conc 105 mmol/L Normal 98-107 Compr ensive Internal Medicine Work Phone: CO2 molar conc 28.0 mmol/L Normal 21.0-32.0 Comprehen [facility] Internal Medicine Work Phone: Creatinine mass conc 0.9 mg/dL Normal 0.6-1.0 Comp [facility] Work Phone: GFR/1.73 sq M predicted among blacks MDRD vol rate/area (S/P/Bld) 81 mL/min/{1.73_m2} Normal Comprehensiv e Internal Medicine Work Phone: GFR/1.73 sq M.predicted MDRD (S/P/Bld) [Vol rate/Area] 67 mL/min/{1.73_m2} Normal Comprehensiv e Internal Medicine Work Phone: GFR/1.73 sq M.predicted MDRD vol rate/area 67 mL/min/{1.73_m2} Normal Comprehensiv e Internal Medicine Work Phone: Globulin (S) [Mass/Vol] 3.4 g/dL Normal 2.7-4.2 [facility] Work Phone: Globulin Calculated mass conc (S) 3.4 g/dL Normal 2.7-4.2 [facility] Work Phone: Glucose mass conc 82 mg/dL Normal 70-110 Compreh ensive Internal Medicine Work Phone: Potassium molar conc 4.3 mmol/L Normal 3.5-5.1 Comp rehensive Internal Medicine Work Phone: Protein mass conc 7.6 g/dL Normal 6.4-8.2 Compreh ensive Internal Medicine Work Phone: Sodium molar conc 144 mmol/L Normal 136-145 Compreh ensive Internal Medicine Work Phone: Urea nitrogen mass conc 19 mg/dL Abnormal 7-18 [facility] Work Phone: Urea nitrogen/Creatinine mass ratio 21.1 {RATIO} Abnormal 10-20 [facility] Work Phone: UAOrdered By: Supervisor Gas Meter Repair on 07-07-2011 UA 2+ Abnormal [facility] Work Phone: UA YELLOW Normal [facility] Work Phone: UA CLEAR Normal [facility] Work Phone: UA Negative Normal [facility] Work Phone: UA 1.010 1 Normal 1.002-1.03 0 [facility] Work Phone: UA 6.0 1 Normal 5.0-8.0 [facility] Work Phone: UA 0.2 EU/dl Normal 0.2 - 1.0 [facility] Work Phone: UA 1+ Abnormal [facility] Work Phone: ABDOMEN/PELVIS WITHOUT CONTO rdered By: Supervisor [employer] M[employer] on 07-03-2011 ABDOMEN/PELVIS WITHOUT CONT See Note Normal [facility] Work Phone: Comment on above: PROCEDURE: CT ABDOME N AND PELVIS WITHOUT CONTRAST REASON FOR EXAM: Female, 66 years old. Left flank pain. Hematuria. TECHNIQUE: Transaxial images were obtained from the dome of thediaphragmto the symphysis pubis without oral contrast, and without intravenouscontrast. Multiplanar coronal and sagittal images were reformatted.Thisexamination is limited for the evaluation of solid organs and vascularstructures due to the lack of intravenous contrast. COMPARISON: Comparison is made with prior study dated January. FINDINGS:The visualized lung bases are unremarkable. There are atheroscleroticcalcifications of visualized coronary arteries. Normal unenhanced liver. There are surgical clips in the gallbladderfossaconsistent with a prior cholecystectomy. Normal unenhanced spleen.Normalpancreas. Normal bilateral adrenal glands. Normal size of the right kidney. There is no right renal mass. Thereareno right renal calculi. There is no right hydronephrosis. Normalvisualized right ureter. Normal size of the left kidney. There is no left renal mass. There arenoleft renal calculi. There is mild hydronephrosis of the left kidney. Isuspect a 2-mm calcification at the left ureterovesical junction. Normal visualized stomach. Normal small intestine. Normal colon. Thepatient is status-post appendectomy. There is no demonstrated peritoneal fluid. Normal abdominal aorta. Normal inferior vena cava. Normalretroperitoneum. Normal urinary bladder. There is no pelvic mass lesion orlymphadenopathy.There is no pelvic fluid. There is absence of the uterus consistent witha prior hysterectomy. There is a small umbilical hernia containing fat. Normal osseousstructures. IMPRESSION:Findings are suggestive of a 2-mm calcification at the leftureterovesicaljunction. Signed:Juan Pablo Patel M.D.July 03, 2011 at 11:11:03 AM EDTElectronically Signed GP/GP Professional Interpretation Provided By: [facility] [employer], , To consult with a radiologist regarding this report, please call our [id number] line @ Dictated on 07/03/11 1028 by Ema DON,Danaribed on 07/03/11 1130 by ITS IMPORTSign by Ema DON,Juan Pablo on 07/03/11 1131 Sign by: Juan Pablo Patel MD Urinalysis, Office ([id number])Or dered By: Nikole Haile on 07-03-2011 Bilirubin Ql (U) Negative Normal Comprehe nsive Internal Medicine Work Phone: Bilirubin Ql (U) Negative Normal Comprehe nsive Internal Medicine; [facility] Work Phone: Glucose Test strip (U) [Mass/Vol] Negative Normal [facility]; [facility] Work Phone: Glucose Test strip mass conc (U) Negative Normal [facility] Work Phone: Hemoglobin Ql (U) Hemolyzed Large Normal Co mprehensive Internal Medicine Work Phone: Hemoglobin Test strip Ql (U) Hemolyzed Large Normal [facility] Work Phone: Ketones Ql (U) Negative Normal Comprehens mehdi Internal Medicine Work Phone: Ketones Ql (U) Negative Normal Comprehens me[facility]di Internal Medicine; [facility] Work Phone: Leukocyte esterase Test strip Ql (U) Small Normal [facility] Work Phone: Nitrite Ql (U) Negative Normal Comprehens me[facility]di Internal Medicine Work Phone: Nitrite Ql (U) Negative Normal Comprehens [facility]di Internal Medicine; [facility] Work Phone: Nitrite Test strip Ql (U) Negative Normal [facility] Work Phone: pH (U) 7.0 [pH] Normal [facility] Work Phone: pH Test strip (U) 7.0 [pH] Normal Compreh ensive Internal Medicine Work Phone: Protein Ql (U) Negative Normal Comprehens mehdi Internal Medicine Work Phone: Protein Ql (U) Negative Normal Comprehens mehdi Internal Medicine; [facility] Work Phone: Protein Test strip Ql (U) Negative Normal [facility] Work Phone: Specific gravity Relative Density (U) 1.010 1 Normal Comprehensi ve Internal Medicine Work Phone: Urobilinogen mass/time (24H U) Normal Normal [facility] Work Phone: DEXA BONE DENSITY STUDY (HP) Ordered By: Supervisor Gas Meter Repair on 08-16-2010 DEXA BONE DENSITY STUDY (HP) See Note Normal [facility] Work Phone: Comment on above: CLINICAL:Female, 65 years old. The patient is postmenopausal. EXAMINATION:DUAL ENERGY X-RAY ABSORPTIOMETRY / DEXA. TECHNIQUE:Bone Mineral Density (BMD) measurements of lumbar spine and bilateralhipswere obtained. COMPARISON:Comparison is made with prior study dated May 02, 2001. FINDINGS: Lumbar Spine (L1-L4): g/cm2 (1.218) / T-score (0.3) / Z-score (1.8)Left Femur Total: g/cm2 (0.857) / T-score (- 1.3) / Z-score (0.1)Right Femur Total: g/cm2 (0.802) / T-score (-1.7) / Z-score (0.9) Since prior study, there has been an improvement of 1.9% in the bonedensity. IMPRESSION:The patient is considered osteopenic, as outlined above, according toWorldHealth Organization (WHO) criteria. Fracture risk is moderate. Reference Information:The T-score is the number of standard deviations above or below thestandard which is normal for young adults at their peak bone mineraldensity. The World Health Organization (WHO) interprets the T-scores asfollows: Above -1 Normal bone densityBetween -1 and -2.5 OsteopeniaEqual to / or below -2.5 Osteoporosis As a practical clinical guideline, osteopenia may be graded as follows:Mild -1 through -1.5Moderate -1.6 through -2.0Severe -2.1 through -2.4 The Z-score is the number of standard deviations above or below age-matchedcontrols. A Z-score of less than -1.5 would be considered abnormal. References:1. NIH Osteoporosis and Related Bone Diseases http://www.osteo.org2. International Society for Clinical Densitometry http://www.iscd.org3. National Osteoporosis Foundation http://www.nof.org Dictated on 08/16/10 1110 by Dana Patel MDribed on 08/17/10950 by ITS IMPORTSign by Juan Pablo Patel MD on 08/17/10950 Sign by: Juan Pablo Patel MD BILAT SCRN DIGITAL & CADOrde red By: Supervisor Gas Meter Rep[employer] on 07-27-2010 BILAT SCRN DIGITAL & CAD See Note Normal [facility] Work Phone: Comment on above: MAMMOGRAPHY - BILATE RAL SCREENING INDICATION:Female, 65 years old. Routine annual screening examination. PERTINENT HISTORY:Non-contributory. TECHNIQUE:Digital examination. Mediolateral oblique (MLO) and craniocaudad (CC)viewsof both breasts were obtained. CAD:Performed. COMPARISON:Comparison is made [facility] FINDINGS:The breast composition is almost entirely fatty replaced. There are no masses or suspicious microcalcifications. No other significant abnormalities are identified. There has been nosignificant change since the prior study. IMPRESSION:Normal bilateral screening mammogram. One year follow-up recommended. (1) ASSESSMENT CATEGORY:BIRADS Category 2: Benign finding(s). A letter regarding these resultswillbe sent to the patient by the facility within 30 days. Approximately 10% of breast cancers are not detected by mammography. Anormal mammogram should not delay biopsy of a clinically suspiciousabnormality. Dictated on 07/27/10 0854 by Dana Patel MDribed on 08/02/10 075 by ITS IMPORTSign by Juan Pablo Patel MD on 08/02/10 0751 Sign by: Juan Pablo Patel MD C-REACTIVE PROTEIN ([id number])Or dered By: Supervisor Gas Meter Repair on 11-26-2009 CRP mass conc 0.7 mg/L Normal 0.0-4.9 Comprehensi Internal Medicine Work Phone: Comment on above: PATIENT NOT FASTINGP ERFORMED BY: LabCoHackensack University Medical CenterMkoxfg4871 [facility] [id number] CBC WITH MANUAL DIFF ([id number]) Ordered By: Supervisor Gas Meter Rep[employer] on 11-26-2009 Basophils (Bld) [#/Vol] 0.0 {x10E3/uL} Normal 0.0-0.2 [facility] Work Phone: Comment on above: PATIENT NOT FASTINGP ERFORMED BY: VENTURA [facility] Uvugky3407 [facility] [id number] Information: [id number] Basophils (Bld) [#/Vol] 0.0 10*3/uL Normal 0.0-0.2 [facility]; [facility] Work Phone: Basophils Auto #/vol (Bld) 0.0 {x10E3/uL} Normal 0.0-0.2 [facility] Work Phone: Basophils/100 WBC (Bld) 0 % Normal 0-3 [facility] Work Phone: Comment on above: PATIENT NOT FASTINGP ERFORMED BY: LabCo Romgcn6361 [facility] [id number] Information: [id number] Basophils/100 WBC Auto (Bld) 0 % Normal 0-3 [facility] Work Phone: Eosinophils (Bld) [#/Vol] 0.1 {x10E3/uL} Normal 0.0-0.4 [facility] Work Phone: Comment on above: PATIENT NOT FASTINGP ERFORMED BY: LabCoHackensack University Medical CenterSpdyrh4874 [facility] [id number] Information: [id number] Eosinophils (Bld) [#/Vol] 0.1 10*3/uL Normal 0.0-0.4 [facility]; [facility] Work Phone: Eosinophils Auto #/vol (Bld) 0.1 {x10E3/uL} Normal 0.0-0.4 [facility] Work Phone: Eosinophils/100 WBC (Bld) 1 % Normal 0-7 [facility] Work Phone: Comment on above: PATIENT NOT FASTINGP ERFORMED BY: VENTURA DoubleBeamMclaren Caro Region6370 [facility] [id number] Information: [id number] Eosinophils/100 WBC Auto (Bld) 1 % Normal 0-7 [facility] Work Phone: Erythrocyte distribution width (RBC) [Ratio] 13.6 % Normal 11.7-15.0 [facility] Work Phone: Comment on above: PATIENT NOT FASTINGP ERFORMED BY: DoubleBeamMichael [place] 3160270 [facility] [id number] Information: [id number] Erythrocyte distribution width Auto Ratio (RBC) 13.6 % Normal 11.7-15.0 [facility] Work Phone: Hematocrit (Bld) [Volume fraction] 41.7 % Normal 34.0-44.0 [facility] Work Phone: Comment on above: PATIENT NOT FASTINGP ERFORMED BY: DoubleBeam[place] 3160270 [facility] [id number] Information: [id number] Hematocrit Auto Volume Fraction (Bld) 41.7 % Normal 34.0-44.0 [facility] Work Phone: Hemoglobin mass conc (Bld) 14.1 g/dL Normal 11.5-15.0 [facility] Work Phone: Comment on above: PATIENT NOT FASTINGP ERFORMED BY: Double[place]am[place] 3160270 [facility] [id number] Information: [id number] Immature granulocytes #/vol (Bld) 0.0 {x10E3/uL} Normal 0.0-0.1 [facility] Work Phone: Comment on above: PATIENT NOT FASTINGP ERFORMED BY: VENTURA PorfirioHackensack University Medical CenterLuypvl0556 [facility] [id number] Information: [id number] Immature granulocytes (Bld) [#/Vol] 0.0 10*3/uL Normal 0.0-0.1 [facility]; [facility] Work Phone: Immature granulocytes/100 WBC (Bld) 0 % Normal 0-1 [facility] Work Phone: Comment on above: PATIENT NOT FASTINGP ERFORMED BY: VENTURA [address] [id number] Information: [id number] Lymphocytes (Bld) [#/Vol] 1.8 {x10E3/uL} Normal 0.7-4.5 [facility] Work Phone: Comment on above: PATIENT NOT FASTINGP ERFORMED BY: VENTURA [address] [id number] Information: [id number] Lymphocytes (Bld) [#/Vol] 1.8 10*3/uL Normal 0.7-4.5 [facility]; [facility] Work Phone: Lymphocytes Auto #/vol (Bld) 1.8 {x10E3/uL} Normal 0.7-4.5 [facility] Work Phone: Lymphocytes/100 WBC (Bld) 24 % Normal 14-46 [facility] Work Phone: Comment on above: PATIENT NOT FASTINGP ERFORMED BY: VENTURA [place] [id number] [facility] [id number] Information: [id number] Lymphocytes/100 WBC Auto (Bld) 24 % Normal 14-46 [facility] Work Phone: MCH (RBC) [Entitic mass] 28.9 pg Normal 27.0-34.0 [facility] Work Phone: Comment on above: PATIENT NOT FASTINGP ERFORMED BY: VENTURA GianfrancoLizette GalvanGrweir1411 [facility] [id number] Information: [id number] MCH Auto Entitic mass (RBC) 28.9 pg Normal 27.0-34.0 [facility] Internal Medicine Work Phone: MCHC (RBC) [Mass/Vol] 33.8 g/dL Normal 32.0-36.0 [facility] Internal Medicine Work Phone: Comment on above: PATIENT NOT FASTINGP ERFORMED BY: VENTURA [place] [id number] [facility] [id number] Information: [id number] MCHC Auto mass conc (RBC) 33.8 g/dL Normal 32.0-36.0 [facility] Internal Medicine Work Phone: MCV (RBC) [Entitic vol] 86 fL Normal 80-98 [facility] Work Phone: Comment on above: PATIENT NOT FASTINGP ERFORMED BY: VENTURA [facility] HospitalFaisalHackensack University Medical CenterFahjnm6952 [facility] [id number] Information: [id number] MCV Auto Entitic volume (RBC) 86 fL Normal 80-98 [facility] Work Phone: Monocytes (Bld) [#/Vol] 0.7 {x10E3/uL} Normal 0.1-1.0 [facility] Internal Medicine Work Phone: Comment on above: PATIENT NOT FASTINGP ERFORMED BY: VENTURA [facility]6370 [facility] [id number] Information: [id number] Monocytes (Bld) [#/Vol] 0.7 10*3/uL Normal 0.1-1.0 [facility]; [facility] Work Phone: Monocytes Auto #/vol (Bld) 0.7 {x10E3/uL} Normal 0.1-1.0 [facility] Work Phone: Monocytes/100 WBC (Bld) 9 % Normal 4-13 [facility] Work Phone: Comment on above: PATIENT NOT FASTINGP ERFORMED BY: VENTURA GianfrancoLizette GalvanSbonld2955 [facility] [id number] Information: [id number] Monocytes/100 WBC Auto (Bld) 9 % Normal 4-13 [facility] Work Phone: Neutrophils (Bld) [#/Vol] 4.9 {x10E3/uL} Normal 1.8-7.8 [facility] Work Phone: Comment on above: PATIENT NOT FASTINGP ERFORMED BY: VENTURA GianfrancoLizette GalvanQfddqy1032 [facility] [id number] Information: [id number] Neutrophils (Bld) [#/Vol] 4.9 10*3/uL Normal 1.8-7.8 [facility]; [facility] Work Phone: Neutrophils Auto #/vol (Bld) 4.9 {x10E3/uL} Normal 1.8-7.8 [facility] Work Phone: Neutrophils/100 WBC (Bld) 66 % Normal 40-74 [facility] Work Phone: Comment on above: PATIENT NOT FASTINGP ERFORMED BY: VENTURA [facility]6370 [facility] [id number] Information: [id number] Neutrophils/100 WBC Auto (Bld) 66 % Normal 40-74 [facility] Work Phone: Platelets (Bld) [#/Vol] 153 {x10E3/uL} Normal 140-415 [facility] Work Phone: Comment on above: PATIENT NOT FASTINGP ERFORMED BY: VENTURA [facility]6370 [facility] [id number] Information: [id number] Platelets (Bld) [#/Vol] 153 10*3/uL Normal 140-415 [facility]; [facility] Work Phone: Platelets Auto #/vol (Bld) 153 {x10E3/uL} Normal 140-415 [facility] Work Phone: RBC (Bld) [#/Vol] 4.88 {x10E6/uL} Normal 3.80-5.10 [facility] Internal Medicine Work Phone: Comment on above: PATIENT NOT FASTINGP ERFORMED BY: VENTURA [employer]70 [facility] [id number] Information: [id number] RBC (Bld) [#/Vol] 4.88 10*6/uL Normal 3.80-5.10 [facility] Internal Medicine; [facility] Work Phone: RBC Auto #/vol (Bld) 4.88 {x10E6/uL} Normal 3.80-5.10 [facility] Work Phone: WBC (Bld) [#/Vol] 7.4 {x10E3/uL} Normal 4.0-10.5 [facility] Internal Medicine Work Phone: Comment on above: PATIENT NOT FASTINGP ERFORMED BY: [employer]6370 [facility] [id number] Information: [id number] WBC (Bld) [#/Vol] 7.4 10*3/uL Normal 4.0-10.5 [facility] Internal Medicine; [facility] Work Phone: WBC Auto #/vol (Bld) 7.4 {x10E3/uL} Normal 4.0-10.5 [facility] Work Phone: CHEST, PA AND LATERAL (MT)Or dered By: Supervisor Gas Meter Repair on 11-26-2009 CHEST, PA AND LATERAL (MT) See Note Normal [facility] Work Phone: Comment on above: Exam Number: [id number] CLINICAL:This is a 64-year-old female patient with history of back pain. X-RAY EXAMINATION - CHEST TECHNIQUE:PA and lateral views of the chest. COMPARISON:Comparison is made with prior study dated October 06, 2009. FINDINGS: The lungs are clear and expanded. There is no demonstrated pleuralabnormality. There is cardiomegaly. Normal mediastinum and hilar regions. Normal visualized pulmonary arteries. Normal visualized aortic archand descending thoracic aorta. Normal osseous structures. IMPRESSION:Cardiomegaly. Reported By: JUAN PABLO PATEL METABOLIC PANEL, COMPREHENSI VE ([id number])Ordered By: Supervisor Gas Meter Repair on 11-26-2009 Albumin mass conc 4.5 g/dL Normal 3.6-4.8 [facility] Internal Medicine Work Phone: Comment on above: PATIENT NOT FASTINGP ERFORMED BY: CB [facility] Sjocjw0223 [address] [facility] PharmStatFirstHealth [facility] [id number] Albumin/Globulin mass ratio 2.0 {ratio} Normal 1.1-2.5 [facility] Internal Medicine Work Phone: Comment on above: PATIENT NOT FASTINGP ERFORMED BY: CB [facility] Nqvmbe2589 [address] [facility] PharmStatFirstHealth [facility] [id number] ALP [Catalytic activity/Vol] 92 U/L Normal 25-165 [facility]; [facility] Internal Medicine Work Phone: ALP enzyme act/vol 92 [iU]/L Normal 25-165 [facility] Internal Medicine Work Phone: Comment on above: PATIENT NOT FASTINGP ERFORMED BY: CB [facility] Ksafjm4898 [address] [facility] PharmStatFirstHealth [facility] [id number] ALT [Catalytic activity/Vol] 28 U/L Normal 0-40 [facility]; [facility] Internal Medicine Work Phone: ALT enzyme act/vol 28 [iU]/L Normal 0-40 [facility] Internal Medicine Work Phone: Comment on above: PATIENT NOT FASTINGP ERFORMED BY: CB [facility] Jitcei5476 [address] [facility] PharmStatFirstHealth [facility] [id number] AST [Catalytic activity/Vol] 27 U/L Normal 0-40 [facility]; [facility] Internal Medicine Work Phone: AST enzyme act/vol 27 [iU]/L Normal 0-40 Compre hensive Internal Medicine Work Phone: Comment on above: PATIENT NOT FASTINGP ERFORMED BY: VENTURA [facility] Javfab6526 [address]e RoadDublin [place] [id number] Bilirubin mass conc 0.4 mg/dL Normal 0.0-1.2 Compr [facility] Internal Medicine Work Phone: Comment on above: PATIENT NOT FASTINGP ERFORMED BY: CB [facility] Athzuz7453 Foote RoadDublin [place] [id number] Calcium mass conc 9.4 mg/dL Normal 8.6-10.2 Compreh ensive Internal Medicine Work Phone: Comment on above: PATIENT NOT FASTINGP ERFORMED BY: CB [facility] Xtxeqw9045 Foote RoadDublin [place] [id number] Chloride molar conc 104 mmol/L Normal 97-108 Compr [facility] Internal Medicine Work Phone: Comment on above: PATIENT NOT FASTINGP ERFORMED BY: CB [facility] Ciexxg6316 Foote RoadDuin [place] [id number] CO2 molar conc 22 mmol/L Normal 20-32 Comprehens mehdi Internal Medicine Work Phone: Comment on above: PATIENT NOT FASTINGP ERFORMED BY: CB [facility] Vogwke4596 [address] RoadAtrium Health Harrisburgin [place] [id number] Creatinine mass conc 0.96 mg/dL Normal 0.57-1.00 Comp [facility] Internal Medicine Work Phone: Comment on above: PATIENT NOT FASTINGP ERFORMED BY: CB [facility] Yqmtdq3229 [address] [facility] [id number] GFR/1.73 sq M predicted among blacks MDRD vol rate/area (S/P/Bld) mL/min/{1.73_m2} Normal [facility] Work Phone: Comment on above: Note: Persistent red uction for 3 months or more in an eGFR<60 mL/min/1.73 m2 defines CKD. Patients with eGFR values>/=60 mL/min/1.73 m2 may also have CKD if evidence of persistentproteinuria is present. Additional information may be found atwww.kdoqi.org. PATIENT NOT FASTINGP ERFORMED BY: VENTURA Porfirio Gqqwpm9352 [address] [facility]in [place] [id number] GFR/1.73 sq M.predicted MDRD (S/P/Bld) [Vol rate/Area] 59 mL/min/{1.73_m2} Abnormal Comprehensiv e Internal Medicine Work Phone: Comment on above: PATIENT NOT FASTINGP ERFORMED BY: VENTURA LabFaisal Xrzqcq8949 [address] [facility] [id number] GFR/1.73 sq M.predicted MDRD vol rate/area 59 mL/min/{1.73_m2} Abnormal Comprehensiv e Internal Medicine Work Phone: Comment on above: PATIENT NOT FASTINGP ERFORMED BY: VENTURA Porfirio [id number] [facility] [id number] Globulin (S) [Mass/Vol] 2.3 g/dL Normal 1.5-4.5 [facility] Work Phone: Comment on above: PATIENT NOT FASTINGP ERFORMED BY: VENTURA [facility] [id number] [facility] [id number] Globulin Calculated mass conc (S) 2.3 g/dL Normal 1.5-4.5 [facility] Work Phone: Glucose mass conc 81 mg/dL Normal 65-99 Compreh ensive Internal Medicine Work Phone: Comment on above: PATIENT NOT FASTINGP ERFORMED BY: VENTURA LabFaisal Adtphp5089 [facility] [id number] Potassium molar conc 4.2 mmol/L Normal 3.5-5.2 Comp rehensive Internal Medicine Work Phone: Comment on above: PATIENT NOT FASTINGP ERFORMED BY: VENTURA [employer] [id number] [facility] [id number] Protein mass conc 6.8 g/dL Normal 6.0-8.5 Compreh ensive Internal Medicine Work Phone: Comment on above: PATIENT NOT FASTINGP ERFORMED BY: VENTURA [employer] Wyqejr9784 [facility] [id number] Sodium molar conc 140 mmol/L Normal 135-145 Compreh [facility] Internal Medicine Work Phone: Comment on above: PATIENT NOT FASTINGP ERFORMED BY: VENTURA [facility] [id number] [facility] ResourcesFirst[facility] [id number] Urea nitrogen mass conc 17 mg/dL Normal 5-26 [facility] Work Phone: Comment on above: PATIENT NOT FASTINGP ERFORMED BY: CB [facility] Wditak4759 [facility] PharmStatFirst[facility] [id number] Urea nitrogen/Creatinine mass ratio 18 mg/mg Normal 8-27 [facility] Work Phone: Comment on above: PATIENT NOT FASTINGP ERFORMED BY: VENTURA [facility] [id number] [facility] PharmStatFirst[facility] [id number] SED RATE ERYTHROCYTE ([id number]) Ordered By: Supervisor Gas Meter Repair on 11-26-2009 ESR Velocity (Bld) 2 mm/h Normal 0-30 Compre [facility] Internal Medicine Work Phone: Comment on above: PATIENT NOT FASTINGP ERFORMED BY: VENTURA [facility] Rijwue4355 [facility]StatFirst[facility] [id number] CBCD,SMEAR DIFFOrdered By: Scott ragsdaletem Nurses' Registry Director on 10-06-2009 Erythrocyte distribution width (RBC) [Ratio] 13.3 % Normal 11.6-14.6 [facility] Internal Medicine Work Phone: Erythrocyte distribution width Auto Ratio (RBC) 13.3 % Normal 11.6-14.6 [facility] Work Phone: Hematocrit (Bld) [Volume fraction] 41.1 % Normal 37-47 [facility] Work Phone: Hematocrit Auto Volume Fraction (Bld) 41.1 % Normal 37-47 [facility] Work Phone: Hemoglobin mass conc (Bld) 14.2 g/dL Normal 12.0-16.0 [facility] Work Phone: Lymphocytes/100 WBC (Bld) 12 % Abnormal 19-41 [facility] Work Phone: Lymphocytes/100 WBC Auto (Bld) 12 % Abnormal 19-41 [facility] Work Phone: MCH (RBC) [Entitic mass] 29.9 pg Normal 27.0-32.0 [facility] Work Phone: MCH Auto Entitic mass (RBC) 29.9 pg Normal 27.0-32.0 [facility] Work Phone: MCHC (RBC) [Mass/Vol] 34.6 g/dL Normal 32-36 [facility] Internal Medicine Work Phone: MCHC Auto mass conc (RBC) 34.6 g/dL Normal 32-36 [facility] Internal Medicine Work Phone: MCV (RBC) [Entitic vol] 86.4 fL Normal 81-99 [facility] Work Phone: MCV Auto Entitic volume (RBC) 86.4 fL Normal 81-99 [facility] Internal Medicine Work Phone: Monocytes/100 WBC (Bld) 3 % Normal 0-10 [facility] Work Phone: Monocytes/100 WBC Auto (Bld) 3 % Normal 0-10 [facility] Work Phone: Neutrophils (Bld) [#/Vol] 8.0 3/uL Abnormal 2.0-7.7 [facility] Work Phone: Neutrophils Auto #/vol (Bld) 8.0 3/uL Abnormal 2.0-7.7 [facility] Work Phone: Platelets (Bld) [#/Vol] SeeNote Normal [facility] Work Phone: Comment on above: Result: ADEQUATE Platelets (Bld) [#/Vol] 140 10*3/uL Abnormal 150-450 [facility] Work Phone: Platelets Auto #/vol (Bld) 140 10*3/uL Abnormal 150-450 [facility] Work Phone: RBC (Bld) [#/Vol] 4.75 {M/mm3} Normal 4.2-5.4 [facility] Internal Medicine Work Phone: RBC Auto #/vol (Bld) 4.75 {M/mm3} Normal 4.2-5.4 Co [facility] Work Phone: WBC (Bld) [#/Vol] 10.1 10*3/uL Normal 4.4-11.0 [facility] Work Phone: WBC Auto #/vol (Bld) 10.1 10*3/uL Normal 4.4-11.0 Co [facility] Work Phone: CBCD,SMEAR DIFF 85 % Abnormal 47-70 [facility] Work Phone: CBCD,SMEAR DIFF 100 1 Normal [facility] Work Phone: CHEST WITH CONTRASTOrdered B y: Supervisor Gas Meter Repair on 10-06-2009 CHEST WITH CONTRAST See Note Normal [facility] Work Phone: Comment on above: Exam Number: [id number] CLINICAL:This is a 63-year-old female patient with history of dyspnea andelevated d-dimer. CT CHEST WITH CONTRAST TECHNIQUE:High resolution transaxial imaging was performed followingintravenous administration of 75ml of Isovue 370 contrast material.Multiplanar coronal and sagittal images were reformatted. COMPARISON:Comparison is made with prior study dated September 16, 2003. FINDINGS:Normal visualized trachea and bronchi. The lungs are well expanded. There is evidence of a patchy infiltrate in the right lower lobe aswell is in the right middle lobe. Normal pleura. Normal heart and pericardium. Normal enhancement of the pulmonary arteries. There are nodemonstrated pulmonary emboli. Normal thoracic aorta and visualized great vessels. There is noaortic dissection. Normal mediastinum. Normal hilar regions. Normal chest wall structures. Normal osseous structures. Normal visualized upper abdomen. IMPRESSION:No pulmonary emboli. Patchy right lower lobe and right middle lobe infiltrate. Reported By: JUAN PABLO PATEL Exam Number: [id number] CLINICAL:Fever and back pain. X-RAY EXAMINATION - CHEST TECHNIQUE:PA and lateral views of the chest. COMPARISON:September 16, 2003 FINDINGS:.There is a poor degree of inspiration. This is associated withprominence of the transverse diameter of the heart and crowding oflung markings. There is increased density in both lung bases mostlikely representing atelectasis. Early infiltrate is not entirelyruled out. No area of consolidation , pleural effusion, or vascularcongestion is seen. There are mild degenerative changes of the spine IMPRESSION:There is increased density in both lung bases on for expiratorystudy. This may represent bibasilar atelectasis. Early pneumoniais not entirely excluded. Reported By: JUN KWOK M.D. Result: ADEQUATE Result: NORM C+C COMP METABOLICOrdered By: Sy stem Nurses' Registry Director on 10-06-2009 Albumin mass conc 3.6 g/dL Normal 3.4-5.0 Compreh ensive Internal Medicine Work Phone: Albumin/Globulin mass ratio 1.2 {RATIO} Normal 0.9-2.4 [facility] Internal Medicine Work Phone: ALP enzyme act/vol 109 U/L Normal 50-136 [facility] Internal Medicine Work Phone: ALT enzyme act/vol 27 U/L Normal 12-78 [facility] Internal Medicine Work Phone: Anion gap 3 molar conc 8 mmol/L Normal 5-15 Co mprehensive Internal Medicine Work Phone: Anion gap [Moles/Vol] 8 mmol/L Normal 5-15 Com prehensive Internal Medicine Work Phone: AST enzyme act/vol 13 U/L Abnormal 15-37 [facility] Internal Medicine Work Phone: Bilirubin mass conc 0.70 mg/dL Normal 0.00-1.00 Compr ensive Internal Medicine Work Phone: Calcium mass conc 8.8 mg/dL Normal 8.5-10.1 Compreh ensive Internal Medicine Work Phone: Chloride molar conc 104 mmol/L Normal 98-107 Compr ensive Internal Medicine Work Phone: CO2 molar conc 27.0 mmol/L Normal 21.0-32.0 Comprehen [facility] Internal Medicine Work Phone: Creatinine mass conc 1.0 mg/dL Normal 0.6-1.0 Comp [facility] Work Phone: GFR/1.73 sq M predicted among blacks MDRD vol rate/area (S/P/Bld) 73 mL/min/{1.73_m2} Normal Comprehensiv e Internal Medicine Work Phone: GFR/1.73 sq M.predicted MDRD (S/P/Bld) [Vol rate/Area] 60 mL/min/{1.73_m2} Normal Comprehensiv e Internal Medicine Work Phone: GFR/1.73 sq M.predicted MDRD vol rate/area 60 mL/min/{1.73_m2} Normal Comprehensiv e Internal Medicine Work Phone: Globulin (S) [Mass/Vol] 3.1 g/dL Normal 2.7-4.2 [facility] Work Phone: Globulin Calculated mass conc (S) 3.1 g/dL Normal 2.7-4.2 [facility] Work Phone: Glucose mass conc 92 mg/dL Normal 70-110 Compreh ensive Internal Medicine Work Phone: Potassium molar conc 4.1 mmol/L Normal 3.5-5.1 Comp rehensive Internal Medicine Work Phone: Protein mass conc 6.7 g/dL Normal 6.4-8.2 Compreh ensive Internal Medicine Work Phone: Sodium molar conc 139 mmol/L Normal 136-145 Compreh ensive Internal Medicine Work Phone: Urea nitrogen mass conc 15 mg/dL Normal 7-18 [facility] Work Phone: Urea nitrogen/Creatinine mass ratio 15.0 {RATIO} Normal 10-20 [facility] Work Phone: D BILIOrdered By: Briseyda Man ager on 10-06-2009 Bilirubin.direct mass conc 0.16 mg/dL Normal 0.00-0.30 [facility] Work Phone: D-DIMER QUANTOrdered By: Karri tem Nurses' Registry Director on 10-06-2009 D-DIMER QUANT 234 ng/mL Abnormal Comprehensi ve Internal Medicine Work Phone: Comment on above: D-Dimer ELEVATED: Ad ditional studies and clinicalassessments are indicated to conclude diagnosis of:Deep Vein Thrombosis (DVT) or Pulmonary Embolism (PE)CRITICAL VALUE REPEATED AND VERIFIED. CALLED TO RZWFAXE07/04/10 JADYN ABAD.RESULTS READ BACK BY COLIN FARIAS . COMP METABOLICOrdered By: Sy stem Nurses' Registry Director on 10-14-2007 Albumin mass conc 3.8 g/dL Normal 3.4-5.0 [facility] ensive Internal Medicine Work Phone: Albumin/Globulin mass ratio 1.2 {RATIO} Normal 0.9-2.4 [facility] Internal Medicine Work Phone: ALP enzyme act/vol 93 U/L Normal 50-136 [facility] Internal Medicine Work Phone: ALT enzyme act/vol 37 U/L Normal 30-65 [facility] Internal Medicine Work Phone: Anion gap 3 molar conc 4 mmol/L Abnormal 5-15 Co mprehensive Internal Medicine Work Phone: Anion gap [Moles/Vol] 4 mmol/L Abnormal 5-15 Com prehensive Internal Medicine Work Phone: AST enzyme act/vol 21 U/L Normal 15-37 [facility] Internal Medicine Work Phone: Bilirubin mass conc 0.45 mg/dL Normal 0.00-1.00 [facility] Internal Medicine Work Phone: Calcium mass conc 9.2 mg/dL Normal 8.5-10.1 Compreh [facility] Work Phone: Chloride molar conc 107 mmol/L Normal 98-107 [facility] Internal Medicine Work Phone: CO2 molar conc 32.1 mmol/L Abnormal 21.0-32.0 Comprehsharp [facility] Internal Medicine Work Phone: Creatinine mass conc 1.0 mg/dL Normal 0.6-1.0 [facility] Internal Medicine Work Phone: Globulin (S) [Mass/Vol] 3.1 g/dL Normal 2.7-4.2 [facility] Internal Medicine Work Phone: Globulin Calculated mass conc (S) 3.1 g/dL Normal 2.7-4.2 [facility] Work Phone: Glucose mass conc 87 mg/dL Normal 70-110 Compreh ensive Internal Medicine Work Phone: Potassium molar conc 4.0 mmol/L Normal 3.5-5.1 Comp rehensive Internal Medicine Work Phone: Protein mass conc 6.9 g/dL Normal 6.4-8.2 Compreh ensive Internal Medicine Work Phone: Sodium molar conc 143 mmol/L Normal 136-145 Compreh ensive Internal Medicine Work Phone: Urea nitrogen mass conc 20 mg/dL Abnormal 7-18 [facility] Work Phone: Urea nitrogen/Creatinine mass ratio 20.0 {RATIO} Normal 10-20 [facility] Work Phone: LIPIDOrdered By: Briseyda lazar on 10-14-2007 Cholesterol in HDL mass conc 50 mg/dL Normal [facility] Work Phone: Comment on above: Reference Range HDL <40 mg/dL Low HDL Cholesterol HDL >or= 60 mg/dL High HDL Cholesterol Cholesterol in LDL mass conc 109 mg/dL Normal 0-130 [facility] Work Phone: Cholesterol in VLDL mass conc 10 mg/dL Normal 5-40 [facility] Work Phone: Cholesterol mass conc 169 mg/dL Normal Com prehensive Internal Medicine Work Phone: Comment on above: <200 mg/dL Desirable 200-240 mg/dL Borderline >240 mg/dL High Risk Triglyceride mass conc 52 mg/dL Normal Co mprehensive Internal Medicine Work Phone: Comment on above: Serum Triglycerides Reference Interval Normal <150 mg/dL Borderline high 150 - 199 mg/dL High 200 - 499 mg/dL Very High > or = 500 mg/dL ROUTINE UAOrdered By: Supervisor Gas Meter Repair on 10-14-2007 Clarity (U) SeeNote Normal [facility] Work Phone: Comment on above: Result: SL CLOUDY Color (U) YELLOW Normal [facility] Work Phone: Glucose mass conc SeeNote Normal Compreh ensive Internal Medicine Work Phone: Comment on above: Result: NEGATIVE Protein mass conc SeeNote Normal Compreh ensive Internal Medicine Work Phone: Comment on above: Result: NEGATIVE ROUTINE UA SeeNote Normal [facility] Work Phone: Comment on above: Result: NEGATIVE Result: SL CLOUDY ROUTINE UA YELLOW Normal [facility] Work Phone: ROUTINE UA 0.2 EU/dl Normal 0.2 - 1.0 [facility] Work Phone: ROUTINE UA >=1.030 Normal 1.002-1.03 0 [facility] Work Phone: ROUTINE UA 5.5 1 Normal 5.0-8.0 [facility] Work Phone: ROUTINE UA 2+ Abnormal [facility] Work Phone: CBC WITH MANUAL DIFF ([id number]) Ordered By: Nidhi Neal on 03-28-2007 Basophils (Bld) [#/Vol] 0.0 {x10E3/uL} Normal 0.0-0.2 [facility] Work Phone: Comment on above: PATIENT WAS FASTINGC linical Information: ADD DRAW FEE [id number] ADD J [id number] PERFORMED BY: OKpandaox [facility] PharmStatFirst[facility] [id number] Basophils (Bld) [#/Vol] 0.0 10*3/uL Normal 0.0-0.2 [facility]; [facility] Work Phone: Basophils Auto #/vol (Bld) 0.0 {x10E3/uL} Normal 0.0-0.2 [facility] Work Phone: Basophils/100 WBC (Bld) 0 % Normal 0-3 [facility] Work Phone: Comment on above: PATIENT WAS FASTINGC linical Information: ADD DRAW FEE [id number] ADD J [id number] PERFORMED BY: Carmolex,lin6370 [facility] PharmStatFirst[facility] [id number] Basophils/100 WBC Auto (Bld) 0 % Normal 0-3 [facility] Work Phone: Eosinophils (Bld) [#/Vol] 0.1 {x10E3/uL} Normal 0.0-0.4 [facility] Work Phone: Comment on above: PATIENT WAS FASTINGC linical Information: ADD DRAW FEE [id number] [place] J [id number] PERFORMED BY: [employer]70 [facility] [facility]StatFirst[facility] [id number] Eosinophils (Bld) [#/Vol] 0.1 10*3/uL Normal 0.0-0.4 [facility]; [facility] Work Phone: Eosinophils Auto #/vol (Bld) 0.1 {x10E3/uL} Normal 0.0-0.4 [facility] Work Phone: Eosinophils/100 WBC (Bld) 1 % Normal 0-7 [facility] Work Phone: Comment on above: PATIENT WAS FASTINGC linical Information: ADD DRAW FEE [id number] ADD J [id number] PERFORMED BY: [employer]70 [facility] [facility]Stat[facility] [id number] Eosinophils/100 WBC Auto (Bld) 1 % Normal 0-7 [facility] Work Phone: Erythrocyte distribution width (RBC) [Ratio] 13.4 % Normal 11.7-15.0 [facility] Work Phone: Comment on above: PATIENT WAS FASTINGC linical Information: ADD DRAW FEE [id number] ADD J [id number] PERFORMED BY: [employer]70 [address] [facility]StatFirst[facility] [id number] Erythrocyte distribution width Auto Ratio (RBC) 13.4 % Normal 11.7-15.0 [facility] Work Phone: Hematocrit (Bld) [Volume fraction] 41.7 % Normal 34.0-44.0 [facility] Work Phone: Comment on above: PATIENT WAS FASTINGC linical Information: ADD DRAW FEE [id number] ADD J [id number] PERFORMED BY: [employer]70 [facility] [facility]Stat[facility] [id number] Hematocrit Auto Volume Fraction (Bld) 41.7 % Normal 34.0-44.0 [facility] Work Phone: Hemoglobin mass conc (Bld) 14.6 g/dL Normal 11.5-15.0 [facility] Work Phone: Comment on above: PATIENT WAS FASTINGC linical Information: ADD DRAW FEE [id number] ADD J [id number] PERFORMED BY: [employer] [id number] [facility] [id number] Lymphocytes (Bld) [#/Vol] 1.4 {x10E3/uL} Normal 0.7-4.5 [facility] Work Phone: Comment on above: PATIENT WAS FASTINGC linical Information: ADD DRAW FEE [id number] ADD J [id number] PERFORMED BY: VENTURA [employer] [place] [address] [id number] Lymphocytes (Bld) [#/Vol] 1.4 10*3/uL Normal 0.7-4.5 [facility]; [facility] Work Phone: Lymphocytes Auto #/vol (Bld) 1.4 {x10E3/uL} Normal 0.7-4.5 [facility] Work Phone: Lymphocytes/100 WBC (Bld) 26 % Normal [facility] Work Phone: Comment on above: PATIENT WAS FASTINGC linical Information: ADD DRAW FEE [id number] ADD J [id number] PERFORMED BY: [employer] Dbptpc4629 [facility] [id number] Lymphocytes/100 WBC Auto (Bld) 26 % Normal 14-46 [facility] Work Phone: MCH (RBC) [Entitic mass] 30.7 pg Normal 27.0-34.0 [facility] Work Phone: Comment on above: PATIENT WAS FASTINGC linical Information: ADD DRAW FEE [id number] ADD J [id number] PERFORMED BY: [employer] B[address]pt[address] [place] [address] [id number] MCH Auto Entitic mass (RBC) 30.7 pg Normal 27.0-34.0 [facility] Work Phone: MCHC (RBC) [Mass/Vol] 35.0 g/dL Normal 32.0-36.0 [facility] Internal Medicine Work Phone: Comment on above: PATIENT WAS FASTINGC linical Information: ADD DRAW FEE [id number] ADD J [id number] PERFORMED BY: VENTURA [employer]70 [facility] [id number] MCHC Auto mass conc (RBC) 35.0 g/dL Normal 32.0-36.0 [facility] Work Phone: MCV (RBC) [Entitic vol] 88 fL Normal 80-98 [facility] Work Phone: Comment on above: PATIENT WAS FASTINGC linical Information: ADD DRAW FEE [id number] ADD J [id number] PERFORMED BY: VENTURA [employer] [place] [facility] PharmStatFirst[facility] [id number] MCV Auto Entitic volume (RBC) 88 fL Normal 80-98 [facility] Work Phone: Monocytes (Bld) [#/Vol] 0.4 {x10E3/uL} Normal 0.1-1.0 [facility] Internal Medicine Work Phone: Comment on above: PATIENT WAS FASTINGC linical Information: ADD DRAW FEE [id number] ADD J [id number] PERFORMED BY: VENTURA [employer]70 [facility] [id number] Monocytes (Bld) [#/Vol] 0.4 10*3/uL Normal 0.1-1.0 [facility]; [facility] Work Phone: Monocytes Auto #/vol (Bld) 0.4 {x10E3/uL} Normal 0.1-1.0 [facility] Work Phone: Monocytes/100 WBC (Bld) 8 % Normal 4-13 [facility] Work Phone: Comment on above: PATIENT WAS FASTINGC linical Information: ADD DRAW FEE [id number] ADD J [id number] PERFORMED BY: [employer]70 [facility] [id number] Monocytes/100 WBC Auto (Bld) 8 % Normal 4-13 [facility] Work Phone: Neutrophils (Bld) [#/Vol] 3.4 {x10E3/uL} Normal 1.8-7.8 [facility] Work Phone: Comment on above: PATIENT WAS FASTINGC linical Information: ADD DRAW FEE [id number] ADD J [id number] PERFORMED BY: VENTURA [employer]6370 [address] 365netVidant Pungo Hospital [id number] Neutrophils (Bld) [#/Vol] 3.4 10*3/uL Normal 1.8-7.8 [facility]; [facility] Work Phone: Neutrophils Auto #/vol (Bld) 3.4 {x10E3/uL} Normal 1.8-7.8 [facility] Work Phone: Neutrophils/100 WBC (Bld) 65 % Normal 40-74 [facility] Work Phone: Comment on above: PATIENT WAS FASTINGC linical Information: ADD DRAW FEE [id number] ADD J [id number] PERFORMED BY: VENTURA [employer]70 [address] [facility] PharmStatFirst[facility] [id number] Neutrophils/100 WBC Auto (Bld) 65 % Normal 40-74 [facility] Work Phone: Platelets (Bld) [#/Vol] 161 {x10E3/uL} Normal 140-415 [facility] Work Phone: Comment on above: PATIENT WAS FASTINGC linical Information: ADD DRAW FEE [id number] ADD J [id number] PERFORMED BY: VENTURA [employer]70 [address] [facility]StatFirst[facility] [id number] Platelets (Bld) [#/Vol] 161 10*3/uL Normal 140-415 [facility]; [facility] Work Phone: Platelets Auto #/vol (Bld) 161 {x10E3/uL} Normal 140-415 [facility] Internal Medicine Work Phone: RBC (Bld) [#/Vol] 4.76 {x10E6/uL} Normal 3.80-5.10 [facility] Internal Medicine Work Phone: Comment on above: PATIENT WAS FASTINGC linical Information: ADD DRAW FEE [id number] ADD J [id number] PERFORMED BY: VENTURA DoubleBeamLizette GalvanHrwfoo2340 [address] [facility]StatFirst[facility] [id number] RBC (Bld) [#/Vol] 4.76 10*6/uL Normal 3.80-5.10 [facility]; [facility] Work Phone: RBC Auto #/vol (Bld) 4.76 {x10E6/uL} Normal 3.80-5.10 [facility] Work Phone: WBC (Bld) [#/Vol] 5.3 {x10E3/uL} Normal 4.0-10.5 [facility] prehensive Internal Medicine Work Phone: Comment on above: PATIENT WAS FASTINGC linical Information: ADD DRAW FEE [id number] ADD J [id number] PERFORMED BY: VENTURA DoubleBeamLizette GalvanCfmyjb3660 [address] [facility]StatFirst[facility] [id number] WBC (Bld) [#/Vol] 5.3 10*3/uL Normal 4.0-10.5 [facility] Internal Medicine; [facility] Work Phone: WBC Auto #/vol (Bld) 5.3 {x10E3/uL} Normal 4.0-10.5 [facility] Work Phone: LIPID PANEL ([id number])Ordered B y: Nidhi Fast on 03-28-2007 Cholesterol in HDL mass conc 49 mg/dL Normal 40-59 [facility] Work Phone: Comment on above: PATIENT WAS FASTINGP ERFORMED BY: VENTURA DoubleBeamLizette GalvanGwgqkx4949 [facility] [facility]Stat[facility] [id number] Cholesterol in LDL mass conc 103 mg/dL Abnormal 0-99 [facility] Work Phone: Comment on above: PATIENT WAS FASTINGP ERFORMED BY: VENTURA [employer] Heathcarereyna [id number] [address] 365netVidant Pung[facility] Hospital [id number] Cholesterol in LDL/Cholesterol in HDL mass ratio SPRCS Normal [facility] Work Phone: Comment on above: If initial LDL-abdirahman sterol result is >100 mg/dL, assess forrisk factors. PATIENT WAS FASTINGP ERFORMED BY: VENTURA DoubleBeamLizette Ifotba3239 Foote RoadDublin [place] [id number] Cholesterol in LDL/Cholesterol in HDL mass ratio 2.1 {ratio_units} Normal 0.0-3.2 [facility] Work Phone: Comment on above: PATIENT WAS FASTINGP ERFORMED BY: CB [facility] Eldwpl4411 [address] [facility] [place] [id number] Cholesterol in VLDL mass conc 19 mg/dL Normal 5-40 [facility] Work Phone: Comment on above: PATIENT WAS FASTINGP ERFORMED BY: VENTURA [facility] [id number] [address] [facility] [id number] Cholesterol mass conc 171 mg/dL Normal 100-199 Com prehensive Internal Medicine Work Phone: Comment on above: PATIENT WAS FASTINGP ERFORMED BY: VENTURA [facility] [id number] [address] [facility] [id number] Triglyceride mass conc 94 mg/dL Normal 0-149 [facility] Work Phone: Comment on above: PATIENT WAS FASTINGP ERFORMED BY: VENTURA [facility] [id number] [facility] [id number] METABOLIC PANEL, COMPREHENSI VE ([id number])Ordered By: Nidhi Neal on 03-28-2007 Albumin mass conc 4.4 g/dL Normal 3.6-4.8 Compreh [facility] Internal Medicine Work Phone: Comment on above: PATIENT WAS FASTINGP ERFORMED BY: CB [facility] [id number] [address] [facility] [id number] Albumin/Globulin mass ratio 1.7 {ratio} Normal 1.1-2.5 [facility] Work Phone: Comment on above: PATIENT WAS FASTINGP ERFORMED BY: CB [facility] [id number] [address] [facility] [place] [id number] ALP [Catalytic activity/Vol] 87 U/L Normal 25-165 [facility]; [facility] Work Phone: ALP enzyme act/vol 87 [iU]/L Normal 25-165 [facility] Work Phone: Comment on above: PATIENT WAS FASTINGP ERFORMED BY: VENTURA [facility] Owierq[address] [place] [id number] ALT [Catalytic activity/Vol] 25 U/L Normal 0-40 [facility]; [facility] Internal Medicine Work Phone: ALT enzyme act/vol 25 [iU]/L Normal 0-40 [facility] Internal Medicine Work Phone: Comment on above: PATIENT WAS FASTINGP ERFORMED BY: VENTURA [facility] Inufzc7352 [address] [place] [id number] AST [Catalytic activity/Vol] 22 U/L Normal 0-40 [facility]; [facility] Internal Medicine Work Phone: AST enzyme act/vol 22 [iU]/L Normal 0-40 [facility] Internal Medicine Work Phone: Comment on above: PATIENT WAS FASTINGP ERFORMED BY: VENTURA Galvanlin6370 [address] [facility] [id number] Bilirubin mass conc 0.3 mg/dL Normal 0.1-1.2 Compr ensive Internal Medicine Work Phone: Comment on above: PATIENT WAS FASTINGP ERFORMED BY: VENTURA LabCoreyna GalvanYnlgjd9314 [address] [facility] [place] [id number] Calcium mass conc 9.7 mg/dL Normal 8.5-10.6 Compreh [facility] Work Phone: Comment on above: PATIENT WAS FASTINGP ERFORMED BY: VENTURA LabCoreyna GalvanTchlem9938 [address] [facility] [id number] Chloride molar conc 107 mmol/L Normal 96-109 Compr ensive Internal Medicine Work Phone: Comment on above: PATIENT WAS FASTINGP ERFORMED BY: VENTURA [facility] Urndkv6840 [address] [place] [id number] CO2 molar conc 25 mmol/L Normal 20-32 Comprehens mehdi Internal Medicine Work Phone: Comment on above: PATIENT WAS FASTINGP ERFORMED BY: VENTURA [facility] Zzbjvj8892 [address] [place] [id number] Creatinine mass conc 1.0 mg/dL Normal 0.5-1.5 Comp rehensive Internal Medicine Work Phone: Comment on above: PATIENT WAS FASTINGP ERFORMED BY: VENTURA LabLizette Salter6370 [facility] [id number] Globulin (S) [Mass/Vol] 2.6 g/dL Normal 1.5-4.5 [facility] Work Phone: Comment on above: PATIENT WAS FASTINGP ERFORMED BY: CB [facility] Oxcpdc8083 [facility] [id number] Globulin Calculated mass conc (S) 2.6 g/dL Normal 1.5-4.5 [facility] Work Phone: Glucose mass conc 90 mg/dL Normal 65-99 Compreh ensive Internal Medicine Work Phone: Comment on above: PATIENT WAS FASTINGP ERFORMED BY: VENTURA LabLizette GalvanPpihrx2578 [facility] [id number] Potassium molar conc 4.5 mmol/L Normal 3.5-5.5 Comp rehensive Internal Medicine Work Phone: Comment on above: PATIENT WAS FASTINGP ERFORMED BY: VENTURA [facility] [id number] [facility] [id number] Protein mass conc 7.0 g/dL Normal 6.0-8.5 Compreh ensive Internal Medicine Work Phone: Comment on above: PATIENT WAS FASTINGP ERFORMED BY: VENTURA [facility] [id number] [facility] [id number] Sodium molar conc 144 mmol/L Normal 135-148 Compreh ensive Internal Medicine Work Phone: Comment on above: PATIENT WAS FASTINGP ERFORMED BY: VENTURA [facility] [id number] [address] [facility] [id number] Urea nitrogen mass conc 18 mg/dL Normal 5-26 [facility] Work Phone: Comment on above: PATIENT WAS FASTINGP ERFORMED BY: VENTURA [facility] Feozuh6[address] [facility] [id number] Urea nitrogen/Creatinine mass ratio 18 mg/mg Normal 8-27 [facility] Work Phone: Comment on above: PATIENT WAS FASTINGP ERFORMED BY: VENTURA [facility] Ipjdie6955 [facility] [id number] Microscopic ExaminationOrder ed By: Supervisor Gas Meter Repair on 03-28-2007 Bacteria LM.HPF #/area (Urine sed) None seen Normal [facility] Work Phone: Comment on above: PATIENT WAS FASTINGP ERFORMED BY: VENTURA [facility] Jbawma2932 [facility] [id number] Crystals LM Nom (Urine sed) Calcium Oxalate Normal [facility] Work Phone: Comment on above: Amorphous Sediment PATIENT WAS FASTINGP ERFORMED BY: VENTURA [facility] Ammzlg5615 [facility] [id number] Epithelial cells LM.HPF #/area (Urine sed) /[HPF] Abnormal 0 - 10 [facility] Work Phone: Comment on above: PATIENT WAS FASTINGP ERFORMED BY: VENTURA LabKsreyna GalvanOmsmfz1380 [facility] [id number] Mucus LM Ql (Urine sed) Present Abnormal [facility] Work Phone: Mucus Ql (Urine sed) Present Abnormal Comp rehensive Internal Medicine Work Phone: Comment on above: PATIENT WAS FASTINGP ERFORMED BY: VENTURA LabLizette GalvanWvzdka7820 [facility] [id number] RBC LM.HPF #/area (Urine sed) 4-10 Abnormal 0 - 3 [facility] Work Phone: Comment on above: PATIENT WAS FASTINGP ERFORMED BY: VENTURA [facility] Barkju7100 [facility] [id number] Unidentified crystals LM Ql (Urine sed) Present Abnormal [facility] Work Phone: Comment on above: PATIENT WAS FASTINGP ERFORMED BY: VENTURA [facility] Uujyza0904 [facility] [id number] WBC LM.HPF #/area (Urine sed) 11-30 Abnormal 0 - 5 [facility] Work Phone: Comment on above: PATIENT WAS FASTINGP ERFORMED BY: VENTURA [facility] Nxwhbz4080 [address] [facility] [place] [id number] TSH ([id number])Ordered By: Nidhi Fast on 03-28-2007 Thyrotropin Qn 1.507 {uIU/mL} Normal 0.350-5.50 0 [facility] Work Phone: Comment on above: PATIENT WAS FASTINGP ERFORMED BY: VENTURA [facility] Ebiogf1889 [address] [place] [id number] URINALYSIS W/O MICRO ([id number]) Ordered By: Nidhi Fast on 03-28-2007 Appearance Nom (U) Cloudy Abnormal Compre hensive Internal Medicine Work Phone: Comment on above: PATIENT WAS FASTINGP ERFORMED BY: VENTURA [facility] Pindhq8077 [address] [facility]At[facility]in [place] [id number] Bilirubin Ql (U) Negative Normal Comprehe nsive Internal Medicine Work Phone: Comment on above: PATIENT WAS FASTINGP ERFORMED BY: VENTURA [facility] Ltlvkf8038 [address] RoadAt[facility] [place]burgin [place] [id number] Bilirubin Ql (U) Negative Normal Comprehe nsive Internal Medicine; [facility] Work Phone: Color Nom (U) Yellow Normal Comprehensi ve Internal Medicine Work Phone: Comment on above: PATIENT WAS FASTINGP ERFORMED BY: VENTURA [facility] Fnxqtn9389 [address]Duin [place] [id number] Glucose Ql (U) Negative Normal Comprehens mehdi Internal Medicine Work Phone: Comment on above: PATIENT WAS FASTINGP ERFORMED BY: [facility] Ftxdog1183 [address] [place] [id number] Glucose Ql (U) Negative Normal Comprehens mehdi Internal Medicine; [facility] Work Phone: Hemoglobin Ql (U) Negative Normal Compreh ensive Internal Medicine Work Phone: Comment on above: PATIENT WAS FASTINGP ERFORMED BY: VENTURA [facility] Xeetep3572 [address] [place] [id number] Hemoglobin Ql (U) Negative Normal Compreh ensive Internal Medicine; [facility] Work Phone: Hemoglobin Test strip Ql (U) Negative Normal [facility] Work Phone: Ketones Ql (U) Negative Normal Comprehens mehdi Internal Medicine Work Phone: Comment on above: PATIENT WAS FASTINGP ERFORMED BY: VENTURA LabLizette Meeuhi3143 [address] [place] [id number] Ketones Ql (U) Negative Normal Comprehens mehdi Internal Medicine; [facility] Work Phone: Leukocyte esterase Test strip Ql (U) 1+ Abnormal [facility] Work Phone: Comment on above: PATIENT WAS FASTINGP ERFORMED BY: VENTURA LabLizette GalvanFozxbh1510 [address] [place] [id number] Microscopic observation LM Nom (Urine sed) See below: Normal [facility] Work Phone: Comment on above: PATIENT WAS FASTINGP ERFORMED BY: VENTURA Galvanlin6370 [address] [place] [id number] Nitrite Ql (U) Negative Normal Comprehens mehdi Internal Medicine Work Phone: Comment on above: PATIENT WAS FASTINGP ERFORMED BY: VENTURA LabLizette GalvanAzuwsu[address] [place] [id number] Nitrite Ql (U) Negative Normal Comprehens mehdi Internal Medicine; [facility] Work Phone: Nitrite Test strip Ql (U) Negative Normal [facility] Work Phone: pH (U) 6.5 [pH] Normal 5.0-7.5 [facility] Work Phone: Comment on above: PATIENT WAS FASTINGP ERFORMED BY: VENTURA [facility] Umtmdy7901 [address] [place] [id number] pH Test strip (U) 6.5 [pH] Normal 5.0-7.5 Compreh ensive Internal Medicine Work Phone: Protein Ql (U) Negative Normal Comprehens mehdi Internal Medicine Work Phone: Comment on above: PATIENT WAS FASTINGP ERFORMED BY: VENTURA [facility] Kahkbf1125 [address] [place] [id number] Protein Ql (U) Negative Normal Comprehens mehdi Internal Medicine; [facility] Work Phone: Protein Test strip Ql (U) Negative Normal [facility] Work Phone: Specific gravity Relative Density (U) 1.024 1 Normal 1.005-1.03 0 [facility] Work Phone: Comment on above: PATIENT WAS FASTINGP ERFORMED BY: MyRoll6370 [address] [place] [id number] Urobilinogen (U) [Mass/Vol] 0.2 mg/dL Normal 0.0-1.9 [facility]; [facility] Work Phone: Urobilinogen Test strip mass conc (U) 0.2 mg/dL Normal 0.0-1.9 Comprehensiv e Internal Medicine Work Phone: Comment on above: PATIENT WAS FASTINGP ERFORMED BY: MyRoll[address] [place] [id number] ABDOMEN W/WO CONTRASTOrdered By: Supervisor Gas Meter Repair on 01-17-2007 ABDOMEN W/WO CONTRAST See Note Normal Com prehensive Internal Medicine Work Phone: Comment on above: Exam Number: [id number] CT ABDOMEN WITHOUT AND WITH CONTRAST-MULTIPHASE IMAGING CLINICAL STATEMENTRenal lesion, hypoechoic abnormality right kidney on sonogram. Images of the January 02, 2007 prior ultrasound study were reviewed1.2-cm hypoechoic site anterior medially on the right mid kidney. Forthe current study oral contrast was given with scanning through thekidneys prior to intravenous enhancement, during arterial phaseenhancement, and lateral portal imaging of the full abdomen and repeatexpiratory phase imaging of the kidneys. There is no mass or cyst inrenal parenchyma corresponding to the site, questioned on sonogram. There are a few small peripelvic cysts in both kidneys. The bilateralrenal pelves are mildly distended tapering smoothly to normal caliberureters with no evidence or obstruction. Outside the urinary tract pancreas and adrenal glands are notenlarged. The liver and spleen have normal contours and enhancement.The gallbladder is absent. Biliary ducts are not dilated. Oralcontrast reached the left colon. IMPRESSIONAlthough there are peripelvic cysts in the kidney no abnormality isseen corresponding to the area of concern on sonography. A lobarinfectious process might produce sonolucency on a transient basis. Prior cholecystectomy. Reported By: MIRNA BIRCH M.D. KIDNEYOrdered By: Briseyda mullenr on 01-02-2007 KIDNEY See Note Normal [facility] Work Phone: Comment on above: Exam Number: [id number] ULTRASOUND OF THE KIDNEYS CLINICAL INFORMATIONHematuria. Bilateral renal ultrasound was performed. Comparison is made to astudy of August 10, 2004. The right kidney has dimensions ofapproximately 10 X 4.5 X 4.8 cm in longitudinal, AP and transversedimensions. There is no hydronephrosis. Cortical thickness andechogenicity appear to be within normal limits. Medially within thekidney in the cortex there is a hypoechoic area measuringapproximately 1.1 X 1.4 X 1.2 cm. There appears to be some low levelinternal echoes within this. There is not good through transmissionof sound. There appears to be some calcification in the periphery ofthis structure. This cannot be reliably characterized as a benigncyst. The left kidney measures 9.9 X 4.9 X 4.7 cm. There is nohydronephrosis. Cortical thickness and echogenicity are normal. Limited images of the urinary bladder were grossly normal. IMPRESSIONUnremarkable appearance of the left kidney. Right kidneydemonstrates a hypoechoic area appearing to contain calcium in theperiphery. This cannot be characterized as a benign cyst based onsonographic features and given the history of hematuria, recommendfurther evaluation with pre and postcontrast CT scanning. Reported By: MARY BROUSSARD M.D. CBCD,SMEAR DIFFOrdered By: Sctot ystem Nurses' Registry Director on 12-03-2006 Eosinophils/100 WBC (Bld) 1 % Normal 0-5 [facility] Work Phone: Eosinophils/100 WBC Auto (Bld) 1 % Normal 0-5 [facility] Work Phone: Erythrocyte distribution width (RBC) [Ratio] 12.6 % Normal 11.6-14.6 [facility] Work Phone: Erythrocyte distribution width Auto Ratio (RBC) 12.6 % Normal 11.6-14.6 [facility] Work Phone: Hematocrit (Bld) [Volume fraction] 40.3 % Normal 37-47 [facility] Work Phone: Hematocrit Auto Volume Fraction (Bld) 40.3 % Normal 37-47 [facility] Internal Medicine Work Phone: Hemoglobin mass conc (Bld) 14.0 g/dL Normal 12.0-16.0 [facility] Work Phone: Lymphocytes/100 WBC (Bld) 31 % Normal 19-41 [facility] Work Phone: Lymphocytes/100 WBC Auto (Bld) 31 % Normal 19-41 [facility] Internal Medicine Work Phone: MCH (RBC) [Entitic mass] 29.9 pg Normal 27.0-32.0 [facility] Internal Medicine Work Phone: MCH Auto Entitic mass (RBC) 29.9 pg Normal 27.0-32.0 [facility] Work Phone: MCHC (RBC) [Mass/Vol] 34.8 g/dL Normal 32-36 [facility] prehensive Internal Medicine Work Phone: MCHC Auto mass conc (RBC) 34.8 g/dL Normal 32-36 [facility] Internal Medicine Work Phone: MCV (RBC) [Entitic vol] 86.0 fL Normal 81-99 [facility] Internal Medicine Work Phone: MCV Auto Entitic volume (RBC) 86.0 fL Normal 81-99 [facility] Internal Medicine Work Phone: Monocytes/100 WBC (Bld) 3 % Normal 0-10 [facility] Work Phone: Monocytes/100 WBC Auto (Bld) 3 % Normal 0-10 [facility] Work Phone: Platelets (Bld) [#/Vol] 168 10*3/uL Normal 150-450 [facility] Work Phone: Platelets (Bld) [#/Vol] SeeNote Normal [facility] Work Phone: Comment on above: Result: ADEQUATE Platelets Auto #/vol (Bld) 168 10*3/uL Normal 150-450 [facility] Internal Medicine Work Phone: RBC (Bld) [#/Vol] 4.69 {M/mm3} Normal 4.2-5.4 [facility] Work Phone: RBC Auto #/vol (Bld) 4.69 {M/mm3} Normal 4.2-5.4 [facility] Work Phone: WBC (Bld) [#/Vol] 4.9 10*3/uL Normal 4.4-11.0 [facility] Internal Medicine Work Phone: WBC Auto #/vol (Bld) 4.9 10*3/uL Normal 4.4-11.0 [facility] Work Phone: CBCD,SMEAR DIFF 100 1 Normal [facility]sharp [facility] Internal [facility] Work Phone: CBCD,SMEAR DIFF 65 % Normal 47-70 [facility]prehsharp [facility] Internal [facility] Work Phone: COMP METABOLICOrdered By: Sy stem Nurses' Registry Director on 12-03-2006 Albumin mass conc 4.0 g/dL Normal 3.4-5.0 Compreh [facility] Internal Medicine Work Phone: Albumin/Globulin mass ratio 1.3 {RATIO} Normal 0.9-2.4 [facility] Internal Medicine Work Phone: ALP enzyme act/vol 94 U/L Normal 50-136 [facility] Internal Medicine Work Phone: ALT enzyme act/vol 38 [iU]/L Normal 30-65 [facility] Internal Medicine Work Phone: Anion gap 3 molar conc 6 mmol/L Normal 5-15 [facility] Internal Medicine Work Phone: Anion gap [Moles/Vol] 6 mmol/L Normal 5-15 Com [facility] Work Phone: AST enzyme act/vol 24 U/L Normal 15-37 [facility] Internal Medicine Work Phone: Bilirubin mass conc 0.85 mg/dL Normal 0.00-1.00 Compr ensive Internal Medicine Work Phone: Calcium mass conc 9.1 mg/dL Normal 8.5-10.1 Compreh ensive Internal Medicine Work Phone: Chloride molar conc 104 mmol/L Normal 98-107 Compr ensive Internal Medicine Work Phone: CO2 molar conc 28.8 mmol/L Normal 21.0-32.0 Comprehen [facility] Internal Medicine Work Phone: Comment on above: Please Note Refer ence Interval Change Creatinine mass conc 0.9 mg/dL Normal 0.6-1.0 Comp [facility]eren[facility] Internal [facility] Work Phone: Globulin (S) [Mass/Vol] 3.2 g/dL Normal 2.7-4.2 [facility] Work Phone: Comment on above: Please Note Refer ence Interval Change Globulin Calculated mass conc (S) 3.2 g/dL Normal 2.7-4.2 [facility] Work Phone: Comment on above: Please Note Refer ence Interval Change Glucose mass conc 82 mg/dL Normal 70-110 Compreh ensive Internal Medicine Work Phone: Potassium molar conc 3.9 mmol/L Normal 3.5-5.1 [facility] Work Phone: Protein mass conc 7.2 g/dL Normal 6.4-8.2 Compreh ensive Internal Medicine Work Phone: Sodium molar conc 139 mmol/L Normal 136-145 Compreh ensive Internal Medicine Work Phone: Urea nitrogen mass conc 21 mg/dL Abnormal 7-18 [facility] Work Phone: Urea nitrogen/Creatinine mass ratio 23.3 {RATIO} Abnormal 10-20 [facility] Work Phone: LIPIDOrdered By: Briseyda lazar on 12-03-2006 Cholesterol in HDL mass conc 47 mg/dL Normal [facility] Work Phone: Comment on above: Reference Range HDL <40 mg/dL Low HDL Cholesterol HDL >or= 60 mg/dL High HDL Cholesterol Cholesterol in LDL mass conc 210 mg/dL Abnormal 0-130 [facility] Work Phone: Cholesterol in VLDL mass conc 11 mg/dL Normal 5-40 [facility] Work Phone: Cholesterol mass conc 268 mg/dL Abnormal Com prehensive Internal Medicine Work Phone: Comment on above: <200 mg/dL Desirable 200-240 mg/dL Borderline >240 mg/dL High Risk Triglyceride mass conc 57 mg/dL Normal Co mprehensive Internal Medicine Work Phone: Comment on above: Serum Triglycerides Reference Interval Normal <150 mg/dL Borderline high 150 - 199 mg/dL High 200 - 499 mg/dL Very High > or = 500 mg/dL ROUTINE UAOrdered By: Supervisor Gas Meter Repair on 12-03-2006 Clarity (U) TURBID Normal [facility] Work Phone: Color (U) YELLOW Normal [facility] Work Phone: Glucose mass conc SeeNote Normal Compreh ensive Internal Medicine Work Phone: Comment on above: Result: NEGATIVE Protein mass conc SeeNote Normal Compreh ensive Internal Medicine Work Phone: Comment on above: Result: NEGATIVE ROUTINE UA SeeNote Normal [facility] Work Phone: Comment on above: Result: NEGATIVE Result: ADEQUATE Result: NORM C&C ROUTINE UA TURBID Normal [facility] Work Phone: ROUTINE UA YELLOW Normal [facility] Work Phone: ROUTINE UA TRACE Abnormal [facility] Work Phone: ROUTINE UA 1+ Abnormal [facility] Work Phone: ROUTINE UA 5.0 1 Normal 5.0-8.0 [facility] Work Phone: ROUTINE UA >=1.030 Normal 1.002-1.03 0 [facility] Work Phone: ROUTINE UA 0.2 EU/dl Normal 0.2 - 1.0 [facility] Work Phone: TSHOrdered By: System Manage r on 10-01-2007 Thyrotropin Qn 1.42 {uIU/mL} Normal 0.34-4.82 Compreh ensive Internal Medicine Work Phone: Vital Signs Date Time Vital Sign Value Performing Clinician Facility 05-23-2023 14:53-0400 Body temperature 98.6 [degF] [facility] 05-23-2023 14:53-0400 Diastolic blood pressure 95 mm[Hg] [facility] 05-23-2023 14:53-0400 Heart rate 70 /min [facility] 05-23-2023 14:53-0400 Respiratory rate 18 /min [facility] 05-23-2023 14:53-0400 SaO2% (BldA) [Mass fraction] 96 % [facility] 05-23-2023 14:53-0400 Systolic blood pressure 123 mm[Hg] [facility] 05-23-2023 10:43-0400 Body height 152.4 cm [facility] 05-23-2023 10:43-0400 Body mass index (BMI) [Ratio] 27.3 kg/m2 [facility] 05-23-2023 10:43-0400 Body weight 63.45 kg [facility] 08-01-2022 08:03-0400 Body height 154.94 cm Sherrill Fito NAVARRO [facility]; [facility] Work Phone: 08-01-2022 08:03-0400 Body mass index (BMI) [Ratio] 27.82 kg/m2 Sherrill Slarb [employer] NURSE PRACTITIONER [facility]; [facility] Work Phone: 08-01-2022 08:03-0400 Body surface area Derived from formula 1.66 m2 Sherrill Slarb [employer] NURSE PRACTITIONER [facility]; [facility] Work Phone: 08-01-2022 08:03-0400 Body temperature 97.1 [degF] Sherrill Chanarb [employer] NURSE PRACTITIONER [facility]; [facility] Work Phone: 08-01-2022 08:03-0400 Body weight 66.79 kg Sherrill Slarb [employer] AC[employer] NURSE PRACTITIONER [facility]; [facility] Work Phone: 08-01-2022 08:03-0400 Diastolic blood pressure 74 mm[Hg] Sherrill Slarb [employer] ACUTE [employer] NURSE PRACTITIONER [facility]; [facility] Work Phone: 08-01-2022 08:03-0400 Heart rate 63 /min Sherrill Slarb [employer] ACUTE [employer] NURSE PRACTITIONER [facility]; [facility] Work Phone: 08-01-2022 08:03-0400 Respiratory rate 16 /min Sherrill Slarb [employer] AC[employer] NURSE PRACTITIONER [facility]; [facility] Work Phone: 08-01-2022 08:03-0400 SaO2% (BldA) [Mass fraction] 98 % Sherrill Slarb [employer] NURSE PRACTITIONER [facility]; [facility] Work Phone: 08-01-2022 08:03-0400 Systolic blood pressure 116 mm[Hg] Sherrill Slarb [employer] ACUTE [employer] NURSE PRACTITIONER [facility]; [facility] Work Phone: 06-07-2022 09:27-0400 Body height 154.94 cm Sherrill Slarb [employer] AC[employer] NURSE PRACTITIONER [facility]; [facility] Work Phone: 06-07-2022 09:27-0400 Body mass index (BMI) [Ratio] 28.39 kg/m2 Sherrill Slarb [employer] ACUTE C[employer] NURSE PRACTITIONER Comprehensive [facility]; [facility] Work Phone: 06-07-2022 09:27-0400 Body surface area Derived from formula 1.67 m2 Sherrill Slarb POST ACUTE C[employer] NURSE PRACTITIONER [facility]; [facility] Work Phone: 06-07-2022 09:27-0400 Body temperature 97.6 [degF] Sherrill Slarb POST ACUTE C[employer] NURSE PRACTITIONER [facility]; [facility] Work Phone: 06-07-2022 09:27-0400 Body weight 68.15 kg Sherrill Slarb POST ACUTE CARE NURSE PRACTITIONER [facility]; [facility] Work Phone: 06-07-2022 09:27-0400 Diastolic blood pressure 72 mm[Hg] Sherrill Slarb POST ACUTE CARE NURSE PRACTITIONER [facility]; [facility] Work Phone: 06-07-2022 09:27-0400 Heart rate 76 /min Sherrill Slarb POST ACUTE CARE NURSE PRACTITIONER [facility]; [facility] Work Phone: 06-07-2022 09:27-0400 Respiratory rate 16 /min Sherrill Slarb POST ACUTE CARE NURSE PRACTITIONER [facility]; [facility] Work Phone: 06-07-2022 09:27-0400 SaO2% (BldA) [Mass fraction] 99 % Sherrill Slarb [employer] ACUTE CARE NURSE PRACTITIONER [facility]; [facility] Work Phone: 06-07-2022 09:27-0400 Systolic blood pressure 112 mm[Hg] Sherrill Slarb POST ACUTE CARE NURSE PRACTITIONER [facility]; [facility] Work Phone: 06-04-2022 19:53-0400 Diastolic blood pressure 62 mm[Hg] SALES REPRESENTATIVE [employer] Marivel Cox Work Phone: [facility] 06-04-2022 19:53-0400 Heart rate 93 /min SALES REPRESENTATIVE [employer] Marivel Cox Work Phone: [facility] 06-04-2022 19:53-0400 Respiratory rate 20 /min SALES REPRESENTATIVE [employer] Marivel Plunkettam Work Phone: [facility] 06-04-2022 19:53-0400 SaO2% (BldA) [Mass fraction] 95 % SALES REPRESENTATIVE [employer] Marivel Cox Work Phone: [facility] 06-04-2022 19:53-0400 Systolic blood pressure 140 mm[Hg] SALES REPRESENTATIVE [employer] Marivel Plunkettam Work Phone: [facility] 06-04-2022 17:47-0400 Body height 154.94 cm SALES REPRESENTATIVE [employer] Marivel Plunkettam Work Phone: [facility] 06-04-2022 17:47-0400 Body mass index (BMI) [Ratio] 29 kg/m2 SALES REPRESENTATIVE [employer] Marivel Plunkettam Work Phone: [facility] 06-04-2022 17:47-0400 Body temperature 96.7 [degF] SALES REPRESENTATIVE [employer] Marivel Cox Work Phone: [facility] 06-04-2022 17:47-0400 Body weight 69.7 kg NICOLA-C Marivel Kenny Work Phone: [facility] 03-17-2022 08:30-0500 Body height 154.94 cm Yaritza Newberry MA [facility]; [facility] Work Phone: 03-17-2022 08:30-0500 Body mass index (BMI) [Ratio] 30.47 kg/m2 Yaritza Newberry MA [facility]; [facility] Work Phone: 03-17-2022 08:30-0500 Body surface area Derived from formula 1.72 m2 Yaritza Newberry MA [facility]; [facility] Work Phone: 03-17-2022 08:30-0500 Body temperature 96 [degF] Yaritza Newberry MA [facility]; [facility] Work Phone: 03-17-2022 08:30-0500 Body weight 73.14 kg Yaritza Newberry MA [facility]; [facility] Work Phone: 03-17-2022 08:30-0500 Diastolic blood pressure 82 mm[Hg] Yaritza Newberry MA [facility]; [facility] Work Phone: 03-17-2022 08:30-0500 Heart rate 68 /min Yaritza Newberry MA [facility]; [facility] Work Phone: 03-17-2022 08:30-0500 Respiratory rate 18 /min Yaritza Newberry MA [facility]; [facility] Work Phone: 03-17-2022 08:30-0500 SaO2% (BldA) [Mass fraction] 93 % Yaritza Newberry MA [facility]; [facility] Work Phone: 03-17-2022 08:30-0500 Systolic blood pressure 120 mm[Hg] Yaritza Newberry MA [facility]; [facility] Work Phone: 01-31-2022 08:03-0500 Body height 154.94 cm Sherrill Slarb POST ACUTE CARE NURSE PRACTITIONER [facility]; [facility] Work Phone: 01-31-2022 08:03-0500 Body mass index (BMI) [Ratio] 30.47 kg/m2 Sherrill Slarb POST ACUTE CARE NURSE PRACTITIONER [facility]; [facility] Work Phone: 01-31-2022 08:03-0500 Body surface area Derived from formula 1.72 m2 Sherrill Slarb POST ACUTE CARE NURSE PRACTITIONER [facility]; [facility] Work Phone: 01-31-2022 08:03-0500 Body temperature 97.6 [degF] Sherrill Slarb POST ACUTE CARE NURSE PRACTITIONER [facility]; [facility] Work Phone: 01-31-2022 08:03-0500 Body weight 73.14 kg Sherrill Slarb POST ACUTE CARE NURSE PRACTITIONER [facility]; [facility] Work Phone: 01-31-2022 08:03-0500 Diastolic blood pressure 72 mm[Hg] Sherrill Slarb POST ACUTE CARE NURSE PRACTITIONER [facility]; [facility] Work Phone: 01-31-2022 08:03-0500 Heart rate 77 /min Sherrill Slarb POST ACUTE CARE NURSE PRACTITIONER [facility]; [facility] Work Phone: 01-31-2022 08:03-0500 Respiratory rate 16 /min Sherrill Slarb POST ACUTE CARE NURSE PRACTITIONER [facility]; [facility] Work Phone: 01-31-2022 08:03-0500 SaO2% (BldA) [Mass fraction] 94 % Sherrill Slarb POST ACUTE CARE NURSE PRACTITIONER [facility]; [facility] Work Phone: 01-31-2022 08:03-0500 Systolic blood pressure 118 mm[Hg] Sherrill Slarb POST ACUTE CARE NURSE PRACTITIONER [facility]; [facility] Work Phone: 11-15-2021 17:33-0400 Heart rate 105 /min [facility] Work Phone: 11-15-2021 17:33-0400 Respiratory rate 16 /min [facility] Work Phone: 11-15-2021 17:33-0400 SaO2% (BldA) [Mass fraction] 99 % [facility] Work Phone: 11-15-2021 16:22-0400 Body height 154.94 cm [facility] Work Phone: 11-15-2021 16:22-0400 Body mass index (BMI) [Ratio] 30.6 kg/m2 [facility] Work Phone: 11-15-2021 16:22-0400 Body temperature 98.5 [degF] [facility] Work Phone: 11-15-2021 16:22-0400 Body weight 73.48 kg [facility] Work Phone: 11-15-2021 16:22-0400 Diastolic blood pressure 88 mm[Hg] [facility] Work Phone: 11-15-2021 16:22-0400 Systolic blood pressure 156 mm[Hg] [facility] Work Phone: 09-23-2021 10:28-0400 Body height 154.94 cm Sherrill Slarb POST ACUTE CARE NURSE PRACTITIONER [facility]; [facility] Work Phone: 09-23-2021 10:28-0400 Body mass index (BMI) [Ratio] 30.44 kg/m2 Sherrill Slarb POST ACUTE CARE NURSE PRACTITIONER [facility]; [facility] Work Phone: 09-23-2021 10:28-0400 Body surface area Derived from formula 1.72 m2 Sherrill Slarb POST ACUTE CARE NURSE PRACTITIONER [facility]; [facility] Work Phone: 09-23-2021 10:28-0400 Body temperature 97.1 [degF] Sherrill Slarb POST ACUTE CARE NURSE PRACTITIONER [facility]; [facility] Work Phone: 09-23-2021 10:28-0400 Body weight 73.09 kg Sherrill Slarb POST ACUTE CARE NURSE PRACTITIONER [facility]; [facility] Work Phone: 09-23-2021 10:28-0400 Diastolic blood pressure 68 mm[Hg] Sherrill Slarb POST ACUTE CARE NURSE PRACTITIONER [facility]; [facility] Work Phone: 09-23-2021 10:28-0400 Heart rate 72 /min Sherrill Slarb POST ACUTE CARE NURSE PRACTITIONER [facility]; [facility] Work Phone: 09-23-2021 10:28-0400 Respiratory rate 16 /min Sherrill Slarb POST ACUTE CARE NURSE PRACTITIONER [facility]; [facility] Work Phone: 09-23-2021 10:28-0400 SaO2% (BldA) [Mass fraction] 97 % Sherrill Slarb POST ACUTE CARE NURSE PRACTITIONER [facility]; [facility] Work Phone: 09-23-2021 10:28-0400 Systolic blood pressure 114 mm[Hg] Sherrill Slarb POST ACUTE CARE NURSE PRACTITIONER [facility]; [facility] Work Phone: 04-05-2021 08:26-0500 Body height 154.94 cm Linda Pappas MA [facility]; [facility] Work Phone: 04-05-2021 08:26-0500 Body mass index (BMI) [Ratio] 30.87 kg/m2 Linda Pappas MA [facility]; [facility] Work Phone: 04-05-2021 08:26-0500 Body surface area Derived from formula 1.73 m2 Linda Pappas MA [facility]; [facility] Work Phone: 04-05-2021 08:26-0500 Body temperature 96.9 [degF] Linda Pappas MA [facility]; [facility] Work Phone: 04-05-2021 08:26-0500 Body weight 74.12 kg Linda Pappas MA [facility]; [facility] Work Phone: 04-05-2021 08:26-0500 Diastolic blood pressure 84 mm[Hg] Linda Pappas MA [facility]; [facility] Work Phone: 04-05-2021 08:26-0500 Heart rate 79 /min Linda Pappas MA [facility]; [facility] Work Phone: 04-05-2021 08:26-0500 Respiratory rate 16 /min Linda Pappas MA [facility]; [facility] Work Phone: 04-05-2021 08:26-0500 SaO2% (BldA) [Mass fraction] 97 % Linda Pappas MA [facility]; [facility] Work Phone: 04-05-2021 08:26-0500 Systolic blood pressure 128 mm[Hg] Linda Pappas MA [facility]; [facility] Work Phone: 12-24-2020 07:48-0400 Body height 154.94 cm Alonso East LPN [facility]; [facility] Work Phone: 12-24-2020 07:48-0400 Body mass index (BMI) [Ratio] 30.12 kg/m2 Alonso East LPN [facility]; [facility] Work Phone: 12-24-2020 07:48-0400 Body surface area Derived from formula 1.72 m2 Alonso East LPN [facility]; [facility] Work Phone: 12-24-2020 07:48-0400 Body temperature 98.6 [degF] Alonso East LPN [facility]; [facility] Work Phone: 12-24-2020 07:48-0400 Body weight 72.3 kg Alonso East LPN [facility]; [facility] Work Phone: 12-24-2020 07:48-0400 Diastolic blood pressure 78 mm[Hg] Alonso East LPN [facility]; [facility] Work Phone: 12-24-2020 07:48-0400 Heart rate 83 /min Alonso East LPN [facility]; [facility] Work Phone: 12-24-2020 07:48-0400 Respiratory rate 16 /min Alonso East LPN [facility]; [facility] Work Phone: 12-24-2020 07:48-0400 SaO2% (BldA) [Mass fraction] 97 % Alonso East LPN [facility]; [facility] Work Phone: 12-24-2020 07:48-0400 Systolic blood pressure 124 mm[Hg] Alonso East LPN [facility]; [facility] Work Phone: 09-17-2020 10:23-0400 Body height 154.94 cm Alonso East LPN [facility]; [facility] Work Phone: 09-17-2020 10:23-0400 Body mass index (BMI) [Ratio] 29.29 kg/m2 Alonso East LPN [facility]; [facility] Work Phone: 09-17-2020 10:23-0400 Body surface area Derived from formula 1.7 m2 Alonso East LPN [facility]; [facility] Work Phone: 09-17-2020 10:23-0400 Body temperature 97.8 [degF] Alonso East LPN [facility]; [facility] Work Phone: 09-17-2020 10:23-0400 Body weight 70.31 kg Alonso East LPN [facility]; [facility] Work Phone: 09-17-2020 10:23-0400 Diastolic blood pressure 78 mm[Hg] Alonso East LPN [facility]; [facility] Work Phone: 09-17-2020 10:23-0400 Heart rate 88 /min Alonso East LPN [facility]; [facility] Work Phone: 09-17-2020 10:23-0400 Respiratory rate 16 /min Alonso East LPN [facility]; [facility] Work Phone: 09-17-2020 10:23-0400 SaO2% (BldA) [Mass fraction] 96 % Alonso East LPN [facility]; [facility] Work Phone: 09-17-2020 10:23-0400 Systolic blood pressure 130 mm[Hg] Alonso East LPN [facility]; [facility] Work Phone: 2020 07:58-0400 BMI (Body Mass Index) 29.86 kg/m2 Mary Bethea CNP Work Phone: [facility]; [facility] Work Phone: 2020 07:58-0400 Body Temperature 97.1 [degF] Mary Bethea CNP Work Phone: [facility]; [facility] Work Phone: 2020 07:58-0400 Body weight 71.69 kg Mary Bethea CNP Work Phone: [facility]; [facility] Work Phone: 2020 07:58-0400 BP Diastolic 78 mm[Hg] Mary Bethea CNP Work Phone: [facility]; [facility] Work Phone: Comment on above: Patient Position: Supine; Cuff Location: Right Arm; Cuff Size: Standard 2020 07:58-0400 BP Systolic 122 mm[Hg] Mary Bethea CNP Work Phone: [facility]; [facility] Work Phone: Comment on above: Patient Position: Supine; Cuff Location: Right Arm; Cuff Size: Standard 2020 07:58-0400 BSA (Body Surface Area) 1.71 m2 Mary Bethea CNP Work Phone: [facility]; [facility] Work Phone: 2020 07:58-0400 Height 154.94 cm Mary Bethea CNP Work Phone: [facility]; [facility] Work Phone: 2020 07:58-0400 Pulse (Heart Rate) 91 /min Mary Bethea CNP Work Phone: [facility]; [facility] Work Phone: Comment on above: Pattern: Regular 2020 07:58-0400 Respiratory Rate 16 /min Mary Bethea CNP Work Phone: [facility]; [facility] Work Phone: 01-23-2020 07:26-0500 BMI (Body Mass Index) 30.43 kg/m2 Alonso East LPN [facility] Work Phone: 01-23-2020 07:26-0500 Body Temperature 97.9 [degF] Alonso East LPN [facility] Work Phone: Comment on above: Method: Infrared 01-23-2020 07:26-0500 Body weight 73.05 kg Alonso East LPN [facility] Work Phone: 01-23-2020 07:26-0500 BP Diastolic 80 mm[Hg] Alonso East LPN [facility] Work Phone: Comment on above: Patient Position: Sitting; Cuff Location : Left Arm; Cuff Size: Standard 01-23-2020 07:26-0500 BP Systolic 130 mm[Hg] Alonso East LPN [facility] Work Phone: Comment on above: Patient Position: Sitting; Cuff Location : Left Arm; Cuff Size: Standard 01-23-2020 07:26-0500 BSA (Body Surface Area) 1.72 m2 Alonso East LPN [facility] Work Phone: 01-23-2020 07:26-0500 Height 154.94 cm Alonso East LPN [facility] Work Phone: 01-23-2020 07:26-0500 Pulse (Heart Rate) 94 /min Alonso East LPN [facility] Work Phone: Comment on above: Pattern: Regular 01-23-2020 07:26-0500 Pulse Oximetry 96 % Mary Bethea [facility] Work Phone: Comment on above: Room air 01-23-2020 07:26-0500 Respiratory Rate 16 /min Alonso East LPN [facility] Work Phone: Comment on above: Pattern: Unlabored 01-23-2020 07:26-0500 SaO2% (BldA) [Mass fraction] 96 % Alonso East LPN [facility]; [facility] Work Phone: 07-22-2019 07:47-0400 BMI (Body Mass Index) 29.86 kg/m2 Alonso East LPN [facility] Work Phone: 07-22-2019 07:47-0400 Body Temperature 97.4 [degF] Alonso East LPN [facility] Work Phone: Comment on above: Method: Temporal 07-22-2019 07:47-0400 Body weight 71.67 kg Alonso East LPN [facility] Work Phone: 07-22-2019 07:47-0400 BP Diastolic 76 mm[Hg] Alonso East LPN [facility] Work Phone: Comment on above: Patient Position: Sitting; Cuff Location : Left Arm; Cuff Size: Standard 07-22-2019 07:47-0400 BP Systolic 122 mm[Hg] Alonso East LPN [facility] Work Phone: Comment on above: Patient Position: Sitting; Cuff Location : Left Arm; Cuff Size: Standard 07-22-2019 07:47-0400 BSA (Body Surface Area) 1.71 m2 Alonso East LPN [facility] Work Phone: 07-22-2019 07:47-0400 Height 154.94 cm Alonso East LPN [facility] Work Phone: 07-22-2019 07:47-0400 Pulse (Heart Rate) 87 /min Alonso East LPN [facility] Work Phone: Comment on above: Pattern: Regular 07-22-2019 07:47-0400 Pulse Oximetry 97 % Mary Bethea [facility] Work Phone: Comment on above: Room air 07-22-2019 07:47-0400 Respiratory Rate 16 /min Alonso East LPN [facility] Work Phone: Comment on above: Pattern: Unlabored 07-22-2019 07:47-0400 SaO2% (BldA) [Mass fraction] 97 % Alonso East LPN [facility]; [facility] Work Phone: 04-07-2019 09:14-0500 BMI (Body Mass Index) 29.48 kg/m2 Juana Haro RN [facility] Work Phone: 04-07-2019 09:14-0500 Body weight 70.76 kg Juana Haro RN [facility] Work Phone: 04-07-2019 09:14-0500 BP Diastolic 80 mm[Hg] Juana Haro RN [facility] Work Phone: Comment on above: Patient Position: Sitting; Cuff Location : Left Arm; Cuff Size: Large 04-07-2019 09:14-0500 BP Systolic 124 mm[Hg] Juana Haro RN [facility] Work Phone: Comment on above: Patient Position: Sitting; Cuff Location : Left Arm; Cuff Size: Large 04-07-2019 09:14-0500 BSA (Body Surface Area) 1.7 m2 Juana Haro RN [facility] Work Phone: 04-07-2019 09:14-0500 Height 154.94 cm Juana Haro RN [facility] Work Phone: 04-07-2019 09:14-0500 Pulse (Heart Rate) 83 /min Juana Haro RN [facility] Work Phone: Comment on above: Pattern: Regular 04-07-2019 09:14-0500 Pulse Oximetry 94 % Sylvesteragustin [facility] Work Phone: Comment on above: Room air 04-07-2019 09:14-0500 Respiratory Rate 18 /min Juana Haro RN [facility] Work Phone: Comment on above: Pattern: Unlabored 04-07-2019 09:14-0500 SaO2% (BldA) [Mass fraction] 94 % Juana Haro RN [facility]; [facility] Work Phone: 01-24-2019 06:52-0500 BMI (Body Mass Index) 29.48 kg/m2 Nikole Haile RN [facility] Work Phone: 01-24-2019 06:52-0500 Body Temperature 98 [degF] Nikole Haile RN [facility] Work Phone: 01-24-2019 06:52-0500 Body weight 70.76 kg Nikole L Long RN [facility] Work Phone: 01-24-2019 06:52-0500 BP Diastolic 76 mm[Hg] Nikole Haile RN [facility] Work Phone: Comment on above: Patient Position: Sitting; Cuff Location : Left Arm; Cuff Size: Standard 01-24-2019 06:52-0500 BP Systolic 124 mm[Hg] Nikole Haile RN [facility] Work Phone: Comment on above: Patient Position: Sitting; Cuff Location : Left Arm; Cuff Size: Standard 01-24-2019 06:52-0500 BSA (Body Surface Area) 1.7 m2 Nikole Haile RN [facility] Work Phone: 01-24-2019 06:52-0500 Height 154.94 cm Nikole Haile RN [facility] Work Phone: 01-24-2019 06:52-0500 Pulse (Heart Rate) 72 /min Nikole Haile RN [facility] Work Phone: Comment on above: Pattern: Regular 01-24-2019 06:52-0500 Pulse Oximetry 99 % Mary Bethea [facility] Work Phone: Comment on above: Room air 01-24-2019 06:52-0500 Respiratory Rate 16 /min Nikole Haile RN [facility] Work Phone: Comment on above: Pattern: Unlabored 01-24-2019 06:52-0500 SaO2% (BldA) [Mass fraction] 99 % Nikole Haile RN [facility]; [facility] Work Phone: 09-06-2018 07:36-0400 BMI (Body Mass Index) 29.48 kg/m2 Nikole Haile RN [facility] Work Phone: 09-06-2018 07:36-0400 Body Temperature 97.3 [degF] Nikole Haile RN [facility] Work Phone: Comment on above: Method: Temporal 09-06-2018 07:36-0400 Body weight 70.76 kg Nikole Haile RN [facility] Work Phone: 09-06-2018 07:36-0400 BP Diastolic 68 mm[Hg] Nikole Haile RN [facility] Work Phone: Comment on above: Patient Position: Sitting; Cuff Location : Left Arm; Cuff Size: Standard 09-06-2018 07:36-0400 BP Systolic 130 mm[Hg] Nikole Haile RN [facility] Work Phone: Comment on above: Patient Position: Sitting; Cuff Location : Left Arm; Cuff Size: Standard 09-06-2018 07:36-0400 BSA (Body Surface Area) 1.7 m2 Nikole Haile RN [facility] Work Phone: 09-06-2018 07:36-0400 Height 154.94 cm Nikole Haile RN [facility] Work Phone: 09-06-2018 07:36-0400 Pulse (Heart Rate) 82 /min Nikole Haile RN [facility] Work Phone: Comment on above: Pattern: Regular 09-06-2018 07:36-0400 Pulse Oximetry 96 % Mary Bethea [facility] Work Phone: Comment on above: Room air 09-06-2018 07:36-0400 Respiratory Rate 16 /min Nikole Haile RN [facility] Work Phone: Comment on above: Pattern: Unlabored 09-06-2018 07:36-0400 SaO2% (BldA) [Mass fraction] 96 % Nikole Haile RN [facility]; [facility] Work Phone: 05-10-2018 09:49-0500 BMI (Body Mass Index) 28.72 kg/m2 Cindy Vaughn [facility] Work Phone: 05-10-2018 09:49-0500 Body Temperature 98.1 [degF] Cindy Vaughn [facility] Work Phone: Comment on above: Method: Temporal 05-10-2018 09:49-0500 Body weight 68.95 kg Cindy Vaughn [facility] Work Phone: 05-10-2018 09:49-0500 BP Diastolic 88 mm[Hg] Cindy Vaughn [facility] Work Phone: Comment on above: Patient Position: Sitting; Cuff Location : Left Arm; Cuff Size: Standard 05-10-2018 09:49-0500 BP Systolic 148 mm[Hg] Cindy Vaughn [facility] Work Phone: Comment on above: Patient Position: Sitting; Cuff Location : Left Arm; Cuff Size: Standard 05-10-2018 09:49-0500 BSA (Body Surface Area) 1.68 m2 Cindy Vaughn [facility] Work Phone: 05-10-2018 09:49-0500 Height 154.94 cm Cindy Vaughn [facility] Work Phone: 05-10-2018 09:49-0500 Pulse (Heart Rate) 76 /min Cindy Vaughn [facility] Work Phone: Comment on above: Pattern: Regular 05-10-2018 09:49-0500 Pulse Oximetry 98 % Mary Bethea [facility] Work Phone: Comment on above: Room air 05-10-2018 09:49-0500 Respiratory Rate 16 /min Cindy Vaughn [facility] Work Phone: Comment on above: Pattern: Unlabored 05-10-2018 09:49-0500 SaO2% (BldA) [Mass fraction] 98 % Cindy Vaughn [facility] Internal Medicine; [facility] Work Phone: 05-10-2018 09:49-0500 Weight 68.95 kg Mary Bethea [facility] Internal Medicine Work Phone: 01-15-2018 10:10-0500 BMI (Body Mass Index) 27.78 kg/m2 Cindy Vaughn [facility] Internal Medicine Work Phone: 01-15-2018 10:10-0500 Body Temperature 98 [degF] Cindy Vaughn [facility] Internal Medicine Work Phone: Comment on above: Method: Temporal 01-15-2018 10:10-0500 Body weight 66.68 kg Cindy Vaughn [facility] Internal Medicine Work Phone: 01-15-2018 10:10-0500 BP Diastolic 80 mm[Hg] Cindy Vaughn [facility] Internal Medicine Work Phone: Comment on above: Patient Position: Sitting; Cuff Location : Left Arm; Cuff Size: Standard 01-15-2018 10:10-0500 BP Systolic 138 mm[Hg] Cindy Vaughn [facility] Internal Medicine Work Phone: Comment on above: Patient Position: Sitting; Cuff Location : Left Arm; Cuff Size: Standard 01-15-2018 10:10-0500 BSA (Body Surface Area) 1.66 m2 Cindy Vaughn [facility] Internal Medicine Work Phone: 01-15-2018 10:10-0500 Height 154.94 cm Cindy Vaughn [facility] Internal Medicine Work Phone: 01-15-2018 10:10-0500 Pulse (Heart Rate) 73 /min Cindy Vaughn [facility] Internal Medicine Work Phone: Comment on above: Pattern: Regular 01-15-2018 10:10-0500 Pulse Oximetry 98 % Mary Bethea [facility] Internal Medicine Work Phone: Comment on above: Room air 01-15-2018 10:10-0500 Respiratory Rate 16 /min Cindy Vaughn [facility] Internal Medicine Work Phone: Comment on above: Pattern: Unlabored 01-15-2018 10:10-0500 SaO2% (BldA) [Mass fraction] 98 % Cindy Vaughn [facility] Internal Medicine; [facility] Work Phone: 01-15-2018 10:10-0500 Weight 66.68 kg Mary Bethea [facility] Internal Medicine Work Phone: 12-18-2017 08:17-0400 BMI (Body Mass Index) 28.37 kg/m2 Cindy Vaughn [facility] Internal Medicine Work Phone: 12-18-2017 08:17-0400 Body Temperature 97.5 [degF] Cindy Vaughn [facility] Internal Medicine Work Phone: Comment on above: Method: Temporal 12-18-2017 08:170400 Body weight 68.1 kg Cindy Vaughn [facility] Internal Medicine Work Phone: 12-18-2017 08:17-0400 BP Diastolic 82 mm[Hg] Cindy Vaughn [facility] Internal Medicine Work Phone: Comment on above: Patient Position: Sitting; Cuff Location : Left Arm; Cuff Size: Standard 12-18-2017 08:17-0400 BP Systolic 138 mm[Hg] Cindy Vaughn [facility] Internal Medicine Work Phone: Comment on above: Patient Position: Sitting; Cuff Location : Left Arm; Cuff Size: Standard 12-18-2017 08:17-0400 BSA (Body Surface Area) 1.67 m2 Cindy Vaughn [facility] Internal Medicine Work Phone: 12-18-2017 08:170400 Height 154.94 cm Cindy Vaughn [facility] Internal Medicine Work Phone: 12-18-2017 08:17-0400 Pulse (Heart Rate) 78 /min Cindy Vaughn [facility] Internal Medicine Work Phone: Comment on above: Pattern: Regular 12-18-2017 08:17-0400 Pulse Oximetry 97 % Mary Bethea [facility] Internal Medicine Work Phone: Comment on above: Room air 12-18-2017 08:17-0400 Respiratory Rate 16 /min Cindy Vaughn [facility] Internal Medicine Work Phone: Comment on above: Pattern: Unlabored 12-18-2017 08:17-0400 SaO2% (BldA) [Mass fraction] 97 % Cindy Vaughn [facility] Internal Medicine; [facility] Work Phone: 12-18-2017 08:17-0400 Weight 68.1 kg Mary Bethea [facility] Internal Medicine Work Phone: 08-07-2017 09:05-0400 BMI (Body Mass Index) 27.59 kg/m2 Sherrill Payton LPN [facility] Internal Medicine Work Phone: 08-07-2017 09:05-0400 Body Temperature 97.8 [degF] Sherrill Payton LPN [facility] Internal Medicine Work Phone: 08-07-2017 09:05-0400 Body weight 66.23 kg Sherrill Payton LPN [facility] Internal Medicine Work Phone: 08-07-2017 09:05-0400 BP Diastolic 78 mm[Hg] Sherrill Payton POST ACUTE C[employer] NURSE PRACTITIONER [facility] Work Phone: Comment on above: Patient Position: Sitting; Cuff Location : Left Arm; Cuff Size: Standard 08-07-2017 09:05-0400 BP Systolic 126 mm[Hg] Sherrill Payton [employer] ACUTE CARE NURSE PRACTITIONER [facility] Work Phone: Comment on above: Patient Position: Sitting; Cuff Location : Left Arm; Cuff Size: Standard 08-07-2017 09:05-0400 BSA (Body Surface Area) 1.65 m2 Sherrill Payton [employer] ACUTE CARE NURSE PRACTITIONER [facility] Work Phone: 08-07-2017 09:05-0400 Height 154.94 cm Sherrill Payton [employer] ACUTE CARE NURSE PRACTITIONER [facility] Work Phone: 08-07-2017 09:05-0400 Pulse (Heart Rate) 82 /min Sherrillagustin Payton POST ACUTE CARE NURSE PRACTITIONER [facility] Internal Medicine Work Phone: Comment on above: Pattern: Regular 08-07-2017 09:05-0400 Pulse Oximetry 98 % Mary Bethea [facility] Work Phone: Comment on above: Room air 08-07-2017 09:05-0400 Respiratory Rate 18 /min Sherrill Payton POST ACUTE CARE NURSE PRACTITIONER [facility] Work Phone: Comment on above: Pattern: Unlabored 08-07-2017 09:05-0400 SaO2% (BldA) [Mass fraction] 98 % Sherrill Fito [place] [facility]; [facility] Work Phone: 08-07-2017 09:05-0400 Weight 66.23 kg Mary Bethea [facility] Internal Medicine Work Phone: 06-12-2017 09:20-0400 BMI (Body Mass Index) 27.02 kg/m2 Nikole Haile RN [facility] Internal Medicine Work Phone: 06-12-2017 09:20-0400 Body Temperature 97.6 [degF] Nikole Haile RN [facility] Work Phone: Comment on above: Method: Temporal 06-12-2017 09:20-0400 Body weight 64.86 kg Nikole Haile RN [facility] Work Phone: 06-12-2017 09:20-0400 BP Diastolic 78 mm[Hg] Nikole Haile RN [facility] Work Phone: Comment on above: Patient Position: Sitting; Cuff Location : Left Arm; Cuff Size: Standard 06-12-2017 09:20-0400 BP Systolic 122 mm[Hg] Nikole Haile RN [facility] Work Phone: Comment on above: Patient Position: Sitting; Cuff Location : Left Arm; Cuff Size: Standard 06-12-2017 09:20-0400 BSA (Body Surface Area) 1.64 m2 Nikole Haile RN [facility] Work Phone: 06-12-2017 09:20-0400 Height 154.94 cm Nikole Haile RN [facility] Work Phone: 06-12-2017 09:20-0400 Pulse (Heart Rate) 84 /min Nikole Haile RN [facility] Work Phone: Comment on above: Pattern: Regular 06-12-2017 09:20-0400 Pulse Oximetry 97 % Neema [facility] Internal Medicine Work Phone: Comment on above: Room air 06-12-2017 09:20-0400 Respiratory Rate 16 /min Nikole Haile RN [facility] Work Phone: Comment on above: Pattern: Unlabored 06-12-2017 09:20-0400 SaO2% (BldA) [Mass fraction] 97 % Nikole Haile RN [facility]; [facility] Work Phone: 06-12-2017 09:20-0400 Weight 64.86 kg Mary Bethea [facility] Internal Medicine Work Phone: 04-06-2017 09:08-0500 BMI (Body Mass Index) 27.02 kg/m2 Sherrill Payton LPN [facility] Internal Medicine Work Phone: 04-06-2017 09:08-0500 Body Temperature 97.7 [degF] Sherrill Slarb [employer] ACUTE CARE NURSE PRACTITIONER [facility] Work Phone: 04-06-2017 09:08-0500 Body weight 64.86 kg Sherrill Payton [employer] ACUTE CARE NURSE PRACTITIONER [facility] Work Phone: 04-06-2017 09:08-0500 BP Diastolic 80 mm[Hg] Sherrill Payton [employer] ACUTE CARE NURSE PRACTITIONER [facility] Work Phone: Comment on above: Patient Position: Sitting; Cuff Location : Left Arm; Cuff Size: Standard 04-06-2017 09:08-0500 BP Systolic 118 mm[Hg] Sherrill Payton [employer] ACUTE CARE NURSE PRACTITIONER [facility] Work Phone: Comment on above: Patient Position: Sitting; Cuff Location : Left Arm; Cuff Size: Standard 04-06-2017 09:08-0500 BSA (Body Surface Area) 1.64 m2 Sherrill Payton LPN [facility] Work Phone: 04-06-2017 09:08-0500 Height 154.94 cm Sherrill Payton [employer] ACUTE CARE NURSE PRACTITIONER [facility] Work Phone: 04-06-2017 09:08-0500 Pulse (Heart Rate) 83 /min Sherrill Payton [employer] ACUTE CARE NURSE PRACTITIONER [facility] e Internal Medicine Work Phone: Comment on above: Pattern: Regular 04-06-2017 09:08-0500 Pulse Oximetry 98 % Mary Bethea [facility] Internal Medicine Work Phone: Comment on above: Room air 04-06-2017 09:08-0500 Respiratory Rate 17 /min Sherrill Payton LPN [facility] Work Phone: Comment on above: Pattern: Unlabored 04-06-2017 09:08-0500 SaO2% (BldA) [Mass fraction] 98 % Sherrill Zayasrb [employer] ACUTE CARE NURSE PRACTITIONER [facility]; [facility] Work Phone: 04-06-2017 09:08-0500 Weight 64.86 kg Mary Bethea [facility] Internal Medicine Work Phone: 11-27-2016 09:07-0400 BMI (Body Mass Index) 27.21 kg/m2 Sherrill Zayasrb POST ACUTE CARE NURSE PRACTITIONER Compre[facility] Internal Medicine Work Phone: 11-27-2016 09:07-0400 Body Temperature 97.6 [degF] Sherrill Payton [employer] ACUTE CARE NURSE PRACTITIONER [facility] Work Phone: 11-27-2016 09:07-0400 Body weight 65.32 kg Sherrill Payton [employer] ACUTE CARE NURSE PRACTITIONER [facility] Work Phone: 11-27-2016 09:07-0400 BP Diastolic 76 mm[Hg] Sherrill Chanarb [employer] ACUTE CARE NURSE PRACTITIONER [facility] Work Phone: Comment on above: Patient Position: Sitting; Cuff Location : Left Arm; Cuff Size: Standard 11-27-2016 09:07-0400 BP Systolic 118 mm[Hg] Sherrill Chanarb [employer] ACUTE CARE NURSE PRACTITIONER [facility] Work Phone: Comment on above: Patient Position: Sitting; Cuff Location : Left Arm; Cuff Size: Standard 11-27-2016 09:07-0400 BSA (Body Surface Area) 1.64 m2 Sherrill Chanarb [employer] ACUTE CARE NURSE PRACTITIONER [facility] Work Phone: 11-27-2016 09:07-0400 Height 154.94 cm Sherrill Payton [employer] ACUTE CARE NURSE PRACTITIONER [facility] Work Phone: 11-27-2016 09:07-0400 Pulse (Heart Rate) 86 /min Sherrill Payton LPN [facility] Medicine Work Phone: Comment on above: Pattern: Regular 11-27-2016 09:07-0400 Pulse Oximetry 97 % Mary Bethea [facility] Internal Medicine Work Phone: Comment on above: Room air 11-27-2016 09:07-0400 Respiratory Rate 16 /min Sherrill Payton [employer] ACUTE CARE NURSE PRACTITIONER [facility] Work Phone: Comment on above: Pattern: Unlabored 11-27-2016 09:07-0400 SaO2% (BldA) [Mass fraction] 97 % Sherrill Chanarb POST ACUTE CARE NURSE PRACTITIONER [facility]; [facility] Work Phone: 11-27-2016 09:07-0400 Weight 65.32 kg Mary Bethea [facility] Internal Medicine Work Phone: 08-02-2016 09:10-0400 BMI (Body Mass Index) 27.21 kg/m2 Sherrill Chanarb POST ACUTE CARE NURSE PRACTITIONER [facility] Internal Medicine Work Phone: 08-02-2016 09:10-0400 Body Temperature 97.5 [degF] Sherrill Chanarb [employer] ACUTE CARE NURSE PRACTITIONER [facility] Work Phone: 08-02-2016 09:10-0400 Body weight 65.32 kg Sherrill Zayasrb POST ACUTE CARE NURSE PRACTITIONER [facility] Work Phone: 08-02-2016 09:10-0400 BP Diastolic 74 mm[Hg] Sherrill Slarb POST ACUTE CARE NURSE PRACTITIONER [facility] Work Phone: Comment on above: Patient Position: Sitting; Cuff Location : Left Arm; Cuff Size: Standard 08-02-2016 09:10-0400 BP Systolic 116 mm[Hg] Sherrill Fito [employer] ACUTE CARE NURSE PRACTITIONER [facility] Work Phone: Comment on above: Patient Position: Sitting; Cuff Location : Left Arm; Cuff Size: Standard 08-02-2016 09:10-0400 BSA (Body Surface Area) 1.64 m2 Sherrlil Zayasrb POST ACUTE CARE NURSE PRACTITIONER [facility] Work Phone: 08-02-2016 09:10-0400 Height 154.94 cm Sherrill Chanarb POST ACUTE CARE NURSE PRACTITIONER [facility] Work Phone: 08-02-2016 09:10-0400 Pulse (Heart Rate) 77 /min Sherrill Payton LPN [facility] Medicine Work Phone: Comment on above: Pattern: Regular 08-02-2016 09:10-0400 Pulse Oximetry 96 % Mary Bethea [facility] Internal Medicine Work Phone: Comment on above: Room air 08-02-2016 09:10-0400 Respiratory Rate 17 /min Sherrill Chanarb POST ACUTE CARE NURSE PRACTITIONER [facility] Work Phone: Comment on above: Pattern: Unlabored 08-02-2016 09:10-0400 SaO2% (BldA) [Mass fraction] 96 % Sherrill Payton POST ACUTE CARE NURSE PRACTITIONER [facility]; [facility] Work Phone: 08-02-2016 09:10-0400 Weight 65.32 kg Mary Bethea [facility] Internal Medicine Work Phone: 04-12-2016 08:57-0500 BMI (Body Mass Index) 26.45 kg/m2 Sherrill Payton POST ACUTE CARE NURSE PRACTITIONER [facility] Internal Medicine Work Phone: 04-12-2016 08:57-0500 Body Temperature 97.6 [degF] Sherrill Slarb POST ACUTE CARE NURSE PRACTITIONER [facility] Work Phone: 04-12-2016 08:57-0500 Body weight 63.5 kg Sherrill Payton POST ACUTE CARE NURSE PRACTITIONER [facility] Work Phone: 04-12-2016 08:57-0500 BP Diastolic 76 mm[Hg] Sherrill Zayasrb POST ACUTE CARE NURSE PRACTITIONER [facility] Work Phone: Comment on above: Patient Position: Sitting; Cuff Location : Left Arm; Cuff Size: Standard 04-12-2016 08:57-0500 BP Systolic 116 mm[Hg] Sherrill Fito [place] [facility] Internal Medicine Work Phone: Comment on above: Patient Position: Sitting; Cuff Location : Left Arm; Cuff Size: Standard 04-12-2016 08:57-0500 BSA (Body Surface Area) 1.62 m2 Sherrill Slafreida [place] [facility] Work Phone: 04-12-2016 08:57-0500 Height 154.94 cm Sherrill Zayasfreida [place] [facility] Work Phone: 04-12-2016 08:57-0500 Pulse (Heart Rate) 76 /min Sherrill Zayasfreida [place] [facility] Medicine Work Phone: Comment on above: Pattern: Regular 04-12-2016 08:57-0500 Pulse Oximetry 99 % Mary Bethea [facility] Internal Medicine Work Phone: Comment on above: Room air 04-12-2016 08:57-0500 Respiratory Rate 17 /min Sherrillagustin Payton POST ACUTE CARE NURSE PRACTITIONER [facility] Work Phone: Comment on above: Pattern: Unlabored 04-12-2016 08:57-0500 SaO2% (BldA) [Mass fraction] 99 % Sherrill Chanarb POST ACUTE CARE NURSE PRACTITIONER [facility]; [facility] Work Phone: 04-12-2016 08:57-0500 Weight 63.5 kg Mary Bethea [facility] Work Phone: 03-22-2016 10:37-0500 BMI (Body Mass Index) 26.07 kg/m2 Sherrill Zayasrb POST ACUTE CARE NURSE PRACTITIONER [facility] Internal Medicine Work Phone: 03-22-2016 10:37-0500 Body Temperature 97.6 [degF] Sherrill Zayasrb POST ACUTE CARE NURSE PRACTITIONER [facility] Work Phone: 03-22-2016 10:37-0500 Body weight 62.6 kg Sherrill Zayasrb POST ACUTE CARE NURSE PRACTITIONER [facility] Work Phone: 03-22-2016 10:37-0500 BP Diastolic 76 mm[Hg] Sherrill Zayasrb POST ACUTE CARE NURSE PRACTITIONER [facility] Work Phone: Comment on above: Patient Position: Sitting; Cuff Location : Left Arm; Cuff Size: Standard 03-22-2016 10:37-0500 BP Systolic 118 mm[Hg] Sherrill Payton POST ACUTE CARE NURSE PRACTITIONER [facility] Work Phone: Comment on above: Patient Position: Sitting; Cuff Location : Left Arm; Cuff Size: Standard 03-22-2016 10:37-0500 BSA (Body Surface Area) 1.61 m2 Sherrill Payton POST ACUTE CARE NURSE PRACTITIONER [facility] Work Phone: 03-22-2016 10:37-0500 Height 154.94 cm Sherrill Payton POST ACUTE CARE NURSE PRACTITIONER [facility] Work Phone: 03-22-2016 10:37-0500 Pulse (Heart Rate) 66 /min Sherrill Payton POST ACUTE CARE NURSE PRACTITIONER [facility] e Internal Medicine Work Phone: Comment on above: Pattern: Regular 03-22-2016 10:37-0500 Pulse Oximetry 99 % Mary Bethea [facility] Work Phone: Comment on above: Room air 03-22-2016 10:37-0500 Respiratory Rate 17 /min Sherrill Payton POST ACUTE CARE NURSE PRACTITIONER [facility] Work Phone: Comment on above: Pattern: Unlabored 03-22-2016 10:37-0500 SaO2% (BldA) [Mass fraction] 99 % Sherrill Fito [place] [facility]; [facility] Work Phone: 03-22-2016 10:37-0500 Weight 62.6 kg Mary Bethea [facility] Work Phone: 03-15-2016 08:19-0500 BMI (Body Mass Index) 24.94 kg/m2 Sherrill Chanarb POST ACUTE CARE NURSE PRACTITIONER Compre[facility] Internal Medicine Work Phone: 03-15-2016 08:19-0500 Body Temperature 97.8 [degF] Sherrill Chanarb POST ACUTE CARE NURSE PRACTITIONER [facility] Work Phone: 03-15-2016 08:19-0500 Body weight 59.88 kg Sherrill Chanarb POST ACUTE CARE NURSE PRACTITIONER [facility] Work Phone: 03-15-2016 08:19-0500 BP Diastolic 78 mm[Hg] Sherrill Slarb POST ACUTE CARE NURSE PRACTITIONER [facility] Work Phone: Comment on above: Patient Position: Sitting; Cuff Location : Left Arm; Cuff Size: Standard 03-15-2016 08:19-0500 BP Systolic 118 mm[Hg] Sherrill Slarb POST ACUTE CARE NURSE PRACTITIONER [facility] Work Phone: Comment on above: Patient Position: Sitting; Cuff Location : Left Arm; Cuff Size: Standard 03-15-2016 08:19-0500 BSA (Body Surface Area) 1.58 m2 Sherrill Chanarb POST ACUTE CARE NURSE PRACTITIONER [facility] Work Phone: 03-15-2016 08:19-0500 Height 154.94 cm Sherrill Slarb POST ACUTE CARE NURSE PRACTITIONER [facility] Work Phone: 03-15-2016 08:19-0500 Pulse (Heart Rate) 81 /min Sherrill Chanarb POST ACUTE CARE NURSE PRACTITIONER Comprehens[facility] e Internal Medicine Work Phone: Comment on above: Pattern: Regular 03-15-2016 08:19-0500 Pulse Oximetry 98 % Mray Bethea [facility] Internal Medicine Work Phone: Comment on above: Room air 03-15-2016 08:19-0500 Respiratory Rate 18 /min Sherrill Slarb POST ACUTE CARE NURSE PRACTITIONER [facility] Work Phone: Comment on above: Pattern: Unlabored 03-15-2016 08:19-0500 SaO2% (BldA) [Mass fraction] 98 % Sherrill [facility]; [facility] Work Phone: 03-15-2016 08:19-0500 Weight 59.88 kg Mary Bethea [facility] Internal Medicine Work Phone: 04-05-2015 16:20-0500 BMI (Body Mass Index) 24.94 kg/m2 [facility] Internal Medicine Work Phone: 04-05-2015 16:20-0500 Body Temperature 98.1 [degF] Salena Barone [facility] Internal Medicine Work Phone: Comment on above: Method: Temporal 04-05-2015 16:20-0500 Body weight 59.88 kg Salena Barone [facility] Internal Medicine Work Phone: 04-05-2015 16:20-0500 BP Diastolic 84 mm[Hg] Salena Barone [facility] Internal Medicine Work Phone: Comment on above: Patient Position: Sitting; Cuff Location : Left Arm; Cuff Size: Standard 04-05-2015 16:20-0500 BP Systolic 126 mm[Hg] Salena Barone [facility] Internal Medicine Work Phone: Comment on above: Patient Position: Sitting; Cuff Location : Left Arm; Cuff Size: Standard 04-05-2015 16:20-0500 BSA (Body Surface Area) 1.58 m2 Salena Barone [facility] Internal Medicine Work Phone: 04-05-2015 16:20-0500 Height 154.94 cm Salena Barone [facility] Internal Medicine Work Phone: 04-05-2015 16:20-0500 Pulse (Heart Rate) 71 /min Salena Carnesensiv e Internal Medicine Work Phone: Comment on above: Pattern: Regular 04-05-2015 16:20-0500 Pulse Oximetry 97 % Mary Bethea [facility] Internal Medicine Work Phone: Comment on above: Room air 04-05-2015 16:20-0500 Respiratory Rate 16 /min Salena Lizabeth [facility] Internal Medicine Work Phone: Comment on above: Pattern: Unlabored 04-05-2015 16:20-0500 SaO2% (BldA) [Mass fraction] 97 % Salena Lizabeth [facility] Internal Medicine; [facility] Work Phone: 04-05-2015 16:20-0500 Weight 59.88 kg Mary Bethea [facility] Internal Medicine Work Phone: 02-12-2015 07:26-0500 BMI (Body Mass Index) 24.11 kg/m2 Salena humphrey Internal Medicine Work Phone: 02-12-2015 07:26-0500 Body Temperature 96.9 [degF] Salena Barone [facility] Internal Medicine Work Phone: Comment on above: Method: Temporal 02-12-2015 07:26-0500 Body weight 57.88 kg Salena Lizabeth [facility] Internal Medicine Work Phone: 02-12-2015 07:26-0500 BP Diastolic 84 mm[Hg] Salena Lizabeth [facility] Internal Medicine Work Phone: Comment on above: Patient Position: Sitting; Cuff Location : Left Arm; Cuff Size: Standard 02-12-2015 07:26-0500 BP Systolic 138 mm[Hg] Salena Lizabeth [facility] Internal Medicine Work Phone: Comment on above: Patient Position: Sitting; Cuff Location : Left Arm; Cuff Size: Standard 02-12-2015 07:26-0500 BSA (Body Surface Area) 1.56 m2 Salena Lizabeth [facility] Internal Medicine Work Phone: 02-12-2015 07:26-0500 Height 154.94 cm Salena Barone [facility] Internal Medicine Work Phone: 02-12-2015 07:26-0500 Pulse (Heart Rate) 75 /min Salena Barone [facility] Internal Medicine Work Phone: Comment on above: Pattern: Regular 02-12-2015 07:26-0500 Pulse Oximetry 97 % Mary Bethea [facility] Internal Medicine Work Phone: Comment on above: Room air 02-12-2015 07:26-0500 Respiratory Rate 16 /min Salena Barone [facility] Work Phone: Comment on above: Pattern: Unlabored 02-12-2015 07:26-0500 SaO2% (BldA) [Mass fraction] 97 % Salena Barone [facility] Medicine; [facility] Work Phone: 02-12-2015 07:26-0500 Weight 57.88 kg Mary Bethea [facility] Internal Medicine Work Phone: 11-06-2014 08:39-0400 BMI (Body Mass Index) 24.11 kg/m2 Nikole Haile RN [facility] Internal Medicine Work Phone: 11-06-2014 08:39-0400 Body Temperature 98.6 [degF] Nikole Haile RN [facility] Work Phone: Comment on above: Method: Temporal 11-06-2014 08:39-0400 Body weight 57.88 kg Nikole Haile RN [facility] Work Phone: 11-06-2014 08:39-0400 BP Diastolic 78 mm[Hg] Nikole Haile RN [facility] Work Phone: Comment on above: Patient Position: Sitting; Cuff Location : Left Arm; Cuff Size: Standard 11-06-2014 08:39-0400 BP Systolic 144 mm[Hg] Nikole Haile RN Comprehensive Internal Medicine Work Phone: Comment on above: Patient Position: Sitting; Cuff Location : Left Arm; Cuff Size: Standard 11-06-2014 08:39-0400 BSA (Body Surface Area) 1.56 m2 Nikole Haile RN [facility] Work Phone: 11-06-2014 08:39-0400 Height 154.94 cm Nikole Haile RN [facility] Work Phone: 11-06-2014 08:39-0400 Pulse (Heart Rate) 65 /min Nikole Haile RN [facility] Internal Medicine Work Phone: Comment on above: Pattern: Regular 11-06-2014 08:39-0400 Pulse Oximetry 97 % Mary Bethea [facility] Internal Medicine Work Phone: Comment on above: Room air 11-06-2014 08:39-0400 Respiratory Rate 16 /min Nikole Haile RN [facility] Internal Medicine Work Phone: Comment on above: Pattern: Unlabored 11-06-2014 08:39-0400 SaO2% (BldA) [Mass fraction] 97 % Nikole Haile RN [facility] Internal Medicine; [facility] Work Phone: 11-06-2014 08:39-0400 Weight 57.88 kg Mary Bethea [facility] Internal Medicine Work Phone: 10-20-2013 10:55-0400 BMI (Body Mass Index) 24.56 kg/m2 Korina Mcelroy [facility] Internal Medicine Work Phone: 10-20-2013 10:55-0400 Body Temperature 98.1 [degF] Korina Mcelroy [facility] Internal Medicine Work Phone: Comment on above: Method: Oral 10-20-2013 10:55-0400 Body weight 58.97 kg Korina Mcelroy [facility] Internal Medicine Work Phone: 10-20-2013 10:55-0400 BP Diastolic 78 mm[Hg] Korina Mcelroy [facility] Internal Medicine Work Phone: Comment on above: Patient Position: Sitting; Cuff Location : Left Arm; Cuff Size: Standard 10-20-2013 10:55-0400 BP Systolic 120 mm[Hg] Korina Mcelroy [facility] Internal Medicine Work Phone: Comment on above: Patient Position: Sitting; Cuff Location : Left Arm; Cuff Size: Standard 10-20-2013 10:55-0400 BSA (Body Surface Area) 1.57 m2 Korina Mcelroy [facility] Internal Medicine Work Phone: 10-20-2013 10:55-0400 Height 154.94 cm Korina Mcelroy [facility] Internal Medicine Work Phone: 10-20-2013 10:55-0400 Pulse (Heart Rate) 71 /min Korina Mcelroy [facility] Internal Medicine Work Phone: Comment on above: Pattern: Regular 10-20-2013 10:55-0400 Pulse Oximetry 97 % Mary Bethea [facility] Internal Medicine Work Phone: Comment on above: Room air 10-20-2013 10:55-0400 Respiratory Rate 18 /min Korina Mcelroy [facility] Internal Medicine Work Phone: Comment on above: Pattern: Unlabored 10-20-2013 10:55-0400 SaO2% (BldA) [Mass fraction] 97 % Korina Mcelroy [facility] Medicine; [facility] Work Phone: 10-20-2013 10:55-0400 Weight 58.97 kg Mary Bethea [facility] Internal Medicine Work Phone: 05-27-2013 08:04-0400 BMI (Body Mass Index) 26.87 kg/m2 Esther Pennington RAMON [facility] Work Phone: 05-27-2013 08:04-0400 Body Temperature 97.9 [degF] Esther Pennington RAMON [facility] Work Phone: Comment on above: Method: Oral 05-27-2013 08:04-0400 Body weight 64.5 kg Esther Pennington RAMON [facility] Work Phone: 05-27-2013 08:04-0400 BP Diastolic 80 mm[Hg] Esther Pennington RAMON [facility] Internal Medicine Work Phone: Comment on above: Patient Position: Sitting; Cuff Location : Left Arm; Cuff Size: Standard 05-27-2013 08:04-0400 BP Systolic 128 mm[Hg] Esther Pennington RAMON [facility] Work Phone: Comment on above: Patient Position: Sitting; Cuff Location : Left Arm; Cuff Size: Standard 05-27-2013 08:04-0400 BSA (Body Surface Area) 1.63 m2 Esther Briscoecriss NAVARRO [facility] Work Phone: 05-27-2013 08:04-0400 Height 154.94 cm Esther Pennington RAMON [facility] Internal Medicine Work Phone: 05-27-2013 08:04-0400 Pulse (Heart Rate) 72 /min Esther Pennington LPN [facility] Internal Medicine Work Phone: Comment on above: Pattern: Regular 05-27-2013 08:04-0400 Pulse Oximetry 98 % Mary Bethea [facility] Internal Medicine Work Phone: Comment on above: Room air 05-27-2013 08:04-0400 Respiratory Rate 16 /min Esther Pennington RAMON [facility] Internal Medicine Work Phone: 05-27-2013 08:04-0400 SaO2% (BldA) [Mass fraction] 98 % Esther Pennington RAMON [facility] Internal Medicine; [facility] Internal Medicine Work Phone: 05-27-2013 08:04-0400 Weight 64.5 kg Mary Bethea [facility] Internal Medicine Work Phone: 03-12-2013 08:09-0500 BMI (Body Mass Index) 26.64 kg/m2 Salena Barone [facility] Internal Medicine Work Phone: 03-12-2013 08:09-0500 Body Temperature 96.9 [degF] Salena Barone [facility] Internal Medicine Work Phone: 03-12-2013 08:09-0500 Body weight 63.96 kg Salena Barone [facility] Internal Medicine Work Phone: 03-12-2013 08:09-0500 BP Diastolic 78 mm[Hg] Salena Barone [facility] Internal Medicine Work Phone: Comment on above: Patient Position: Sitting; Cuff Location : Left Arm; Cuff Size: Standard 03-12-2013 08:09-0500 BP Systolic 126 mm[Hg] Salena Barone [facility] Internal Medicine Work Phone: Comment on above: Patient Position: Sitting; Cuff Location : Left Arm; Cuff Size: Standard 03-12-2013 08:09-0500 BSA (Body Surface Area) 1.63 m2 Salena Barone [facility] Internal Medicine Work Phone: 03-12-2013 08:09-0500 Height 154.94 cm Salena Barone [facility] Internal Medicine Work Phone: 03-12-2013 08:09-0500 Pulse (Heart Rate) 68 /min Salena Barone [facility] Work Phone: Comment on above: Pattern: Regular 03-12-2013 08:09-0500 Respiratory Rate 16 /min Salena Barone [facility] Internal Medicine Work Phone: Comment on above: Pattern: Unlabored 03-12-2013 08:09-0500 Weight 63.96 kg Mary Bethea [facility] Internal Medicine Work Phone: 11-26-2012 11:42-0400 BMI (Body Mass Index) 27.59 kg/m2 Salena Barone [facility] Internal Medicine Work Phone: 11-26-2012 11:42-0400 Body Temperature 96.8 [degF] Salena Barone [facility] Internal Medicine Work Phone: 11-26-2012 11:42-0400 Body weight 66.23 kg Salena Barone [facility] Internal Medicine Work Phone: 11-26-2012 11:42-0400 BP Diastolic 90 mm[Hg] [facility] Work Phone: Comment on above: Patient Position: Sitting; Cuff Location : Left Arm; Cuff Size: Large 11-26-2012 11:42-0400 BP Systolic 120 mm[Hg] Salena Barone [facility] Internal Medicine Work Phone: Comment on above: Patient Position: Sitting; Cuff Location : Left Arm; Cuff Size: Large 11-26-2012 11:42-0400 BSA (Body Surface Area) 1.65 m2 Salena Barone [facility] Internal Medicine Work Phone: 11-26-2012 11:42-0400 Height 154.94 cm [facility] Work Phone: 11-26-2012 11:42-0400 Pulse (Heart Rate) 56 /min Salena Barone [facility] Internal Medicine Work Phone: Comment on above: Pattern: Regular 11-26-2012 11:42-0400 Respiratory Rate 16 /min Salena Barone [facility] Internal Medicine Work Phone: Comment on above: Pattern: Unlabored 11-26-2012 11:42-0400 Weight 66.23 kg Mary Bethea [facility] Internal Medicine Work Phone: 06-14-2012 07:59-0400 BMI (Body Mass Index) 27.96 kg/m2 Esther Pennington [employer]SE [employer]ACTITION[employer] [facility] Internal Medicine Work Phone: 06-14-2012 07:59-0400 Body Temperature 98 [degF] Esther Pennington [employer]SE [employer]ACTITION[employer] [facility] Internal Medicine Work Phone: Comment on above: Method: Oral 06-14-2012 07:59-0400 Body weight 67.13 kg Esther Pennington [employer] N[employer]SE [employer]ACTITIONER [facility] Internal Medicine Work Phone: 06-14-2012 07:59-0400 BP Diastolic 80 mm[Hg] Esther Pennington [employer] N[employer]SE PRACTITIONER [facility] Internal Medicine Work Phone: Comment on above: Patient Position: Sitting; Cuff Location : Left Arm; Cuff Size: Standard 06-14-2012 07:59-0400 BP Systolic 138 mm[Hg] Esther Pennington [employer] NURSE [employer]ACTITIONER [facility] Internal Medicine Work Phone: Comment on above: Patient Position: Sitting; Cuff Location : Left Arm; Cuff Size: Standard 06-14-2012 07:59-0400 BSA (Body Surface Area) 1.66 m2 Esther Pennington [employer] NURSE [employer]ACTITIONER [facility] Internal Medicine Work Phone: 06-14-2012 07:59-0400 Height 154.94 cm Esther Pennington LPN [facility] Internal Medicine Work Phone: 06-14-2012 07:59-0400 Pulse (Heart Rate) 86 /min Esther Pennington [employer]SE [employer]ACTITION[employer] [facility] Internal Medicine Work Phone: Comment on above: Pattern: Regular 06-14-2012 07:59-0400 Pulse Oximetry 98 % Mary Bethea [facility] Work Phone: Comment on above: Room air 06-14-2012 07:59-0400 Respiratory Rate 16 /min Esther Pennington LPN [facility] Work Phone: 06-14-2012 07:59-0400 SaO2% (BldA) [Mass fraction] 98 % Esther Tyler RAMON [facility]; [facility] Work Phone: 06-14-2012 07:59-0400 Weight 67.13 kg Mary Bethea [facility] Work Phone: 05-24-2012 10:13-0400 BMI (Body Mass Index) 27.96 kg/m2 Esther Pennington RAMON [facility] Work Phone: 05-24-2012 10:13-0400 Body Temperature 98.7 [degF] Esther Pennington RAMON [facility] Work Phone: Comment on above: Method: Oral 05-24-2012 10:130400 Body weight 67.13 kg Esther Pennington RAMON [facility] Work Phone: 05-24-2012 10:13-0400 BP Diastolic 80 mm[Hg] Esther Pennington LPN [facility] Work Phone: Comment on above: Patient Position: Sitting; Cuff Location : Left Arm; Cuff Size: Standard 05-24-2012 10:13-0400 BP Systolic 128 mm[Hg] Esther Pennington RAMON [facility] Work Phone: Comment on above: Patient Position: Sitting; Cuff Location : Left Arm; Cuff Size: Standard 05-24-2012 10:13-0400 BSA (Body Surface Area) 1.66 m2 Esther Pennington RAMON [facility] Work Phone: 05-24-2012 10:13-0400 Height 154.94 cm Esther Pennington RAMON [facility] Work Phone: 05-24-2012 10:13-0400 Pulse (Heart Rate) 88 /min Esther Pennington LPN [facility] Work Phone: Comment on above: Pattern: Regular 05-24-2012 10:13-0400 Respiratory Rate 17 /min Esther Gorge RAMON [facility] Work Phone: 05-24-2012 10:13-0400 Weight 67.13 kg Mary Bethea [facility] Work Phone: 01-17-2012 09:08-0500 BMI (Body Mass Index) 27.96 kg/m2 Nikole Haile RN [facility] Internal Medicine Work Phone: 01-17-2012 09:08-0500 Body Temperature 97.7 [degF] Niokle Haile RN [facility] Internal Medicine Work Phone: Comment on above: Method: Oral 01-17-2012 09:08-0500 Body weight 67.13 kg Nikole Haile RN [facility] Internal Medicine Work Phone: 01-17-2012 09:08-0500 BP Diastolic 78 mm[Hg] Nikole Haile RN [facility] Work Phone: Comment on above: Patient Position: Sitting; Cuff Location : Left Arm; Cuff Size: Standard 01-17-2012 09:08-0500 BP Systolic 124 mm[Hg] Nikole Haile RN [facility] Work Phone: Comment on above: Patient Position: Sitting; Cuff Location : Left Arm; Cuff Size: Standard 01-17-2012 09:08-0500 BSA (Body Surface Area) 1.66 m2 Nikole Haile RN [facility] Work Phone: 01-17-2012 09:08-0500 Height 154.94 cm Nikole Haile RN [facility] Work Phone: 01-17-2012 09:08-0500 Pulse (Heart Rate) 72 /min Nikole Haile RN [facility] Work Phone: Comment on above: Pattern: Regular 01-17-2012 09:08-0500 Respiratory Rate 16 /min Nikole Haile RN [facility] Work Phone: Comment on above: Pattern: Unlabored 01-17-2012 09:08-0500 Weight 67.13 kg Mary Bethea [facility] Internal Medicine Work Phone: 10-26-2011 07:07-0400 BMI (Body Mass Index) 27.96 kg/m2 Salena Lizabeth [facility] Internal Medicine Work Phone: 10-26-2011 07:07-0400 Body Temperature 97.9 [degF] Salena Lizabeth [facility] Internal Medicine Work Phone: 10-26-2011 07:07-0400 Body weight 67.13 kg Salena Lizabeth [facility] Internal Medicine Work Phone: 10-26-2011 07:07-0400 BP Diastolic 84 mm[Hg] Salena Lizabeth [facility] Internal Medicine Work Phone: Comment on above: Patient Position: Sitting; Cuff Location : Left Arm; Cuff Size: Standard 10-26-2011 07:07-0400 BP Systolic 120 mm[Hg] Salena Lizabeth [facility] Internal Medicine Work Phone: Comment on above: Patient Position: Sitting; Cuff Location : Left Arm; Cuff Size: Standard 10-26-2011 07:07-0400 BSA (Body Surface Area) 1.66 m2 Salena Lizabeth [facility] Internal Medicine Work Phone: 10-26-2011 07:07-0400 Height 154.94 cm Salena Barone [facility] Internal Medicine Work Phone: 10-26-2011 07:07-0400 Pulse (Heart Rate) 84 /min Salena Lizabeth [facility] Internal Medicine Work Phone: Comment on above: Pattern: Regular 10-26-2011 07:07-0400 Respiratory Rate 16 /min Salena Barone [facility] Internal Medicine Work Phone: Comment on above: Pattern: Unlabored 10-26-2011 07:07-0400 Weight 67.13 kg Mary Bethea [facility] Internal Medicine Work Phone: 10-10-2011 10:52-0400 BMI (Body Mass Index) 27.02 kg/m2 Esther Pennington LPN [facility] Work Phone: 10-10-2011 10:52-0400 Body Temperature 97.8 [degF] Esther Pennington LPN [facility] Work Phone: Comment on above: Method: Oral 10-10-2011 10:52-0400 Body weight 64.86 kg Esther Pennington LPN [facility] Work Phone: 10-10-2011 10:52-0400 BP Diastolic 70 mm[Hg] Esther Pennington LPN [facility] Work Phone: Comment on above: Patient Position: Sitting; Cuff Location : Left Arm; Cuff Size: Standard 10-10-2011 10:52-0400 BP Systolic 120 mm[Hg] Esther Pennington LPN [facility] Work Phone: Comment on above: Patient Position: Sitting; Cuff Location : Left Arm; Cuff Size: Standard 10-10-2011 10:52-0400 BSA (Body Surface Area) 1.64 m2 Esther Pennington LPN [facility] Work Phone: 10-10-2011 10:52-0400 Height 154.94 cm Esther Pennington LPN [facility] Work Phone: 10-10-2011 10:52-0400 Pulse (Heart Rate) 74 /min Esther Pennington LPN [facility] Work Phone: Comment on above: Pattern: Regular 10-10-2011 10:52-0400 Pulse Oximetry 98 % Mary Bethea [facility] Work Phone: Comment on above: Room air 10-10-2011 10:52-0400 Respiratory Rate 17 /min Esther Pennington LPN [facility] Work Phone: 10-10-2011 10:52-0400 SaO2% (BldA) [Mass fraction] 98 % Esther Pennington LPN [facility]; [facility] Work Phone: 10-10-2011 10:52-0400 Weight 64.86 kg Mary Bethea [facility] Work Phone: 07-03-2011 08:52-0400 BMI (Body Mass Index) 27.02 kg/m2 Maria Victoria Armendariz RN [facility] Internal Medicine Work Phone: 07-03-2011 08:52-0400 Body Temperature 97.1 [degF] Maria Victoria Armendariz RN [facility] Work Phone: Comment on above: Method: Oral 07-03-2011 08:52-0400 Body weight 64.86 kg Maria Victoria Armendariz RN [facility] Work Phone: 07-03-2011 08:52-0400 BP Diastolic 70 mm[Hg] Maria Victoria Armendariz RN [facility] Work Phone: Comment on above: Patient Position: Sitting; Cuff Location : Left Arm; Cuff Size: Large 07-03-2011 08:52-0400 BP Systolic 120 mm[Hg] Maria Victoria Armendariz RN [facility] Work Phone: Comment on above: Patient Position: Sitting; Cuff Location : Left Arm; Cuff Size: Large 07-03-2011 08:52-0400 BSA (Body Surface Area) 1.64 m2 Maria Victoria Armendariz RN [facility] Work Phone: 07-03-2011 08:52-0400 Height 154.94 cm Maria iVctoria Armendariz RN [facility] Work Phone: 07-03-2011 08:52-0400 Pulse (Heart Rate) 88 /min Maria Victoria Armendariz RN [facility] Work Phone: Comment on above: Pattern: Regular 07-03-2011 08:52-0400 Respiratory Rate 20 /min Maria Victoria Armendariz RN [facility] Work Phone: Comment on above: Pattern: Unlabored 07-03-2011 08:52-0400 Weight 64.86 kg Mary Bethea [facility] Work Phone: 06-29-2011 07:03-0400 BMI (Body Mass Index) 27.02 kg/m2 Nikole Haile RN [facility] Internal Medicine Work Phone: 06-29-2011 07:03-0400 Body Temperature 98 [degF] Nikole Haile RN [facility] Work Phone: Comment on above: Method: Oral 06-29-2011 07:03-0400 Body weight 64.86 kg Nikole Haile RN [facility] Work Phone: 06-29-2011 07:03-0400 BP Diastolic 66 mm[Hg] Nikole Haile RN [facility] Work Phone: Comment on above: Patient Position: Sitting; Cuff Location : Left Arm; Cuff Size: Standard 06-29-2011 07:03-0400 BP Systolic 122 mm[Hg] Nikole Haile RN [facility] Work Phone: Comment on above: Patient Position: Sitting; Cuff Location : Left Arm; Cuff Size: Standard 06-29-2011 07:03-0400 BSA (Body Surface Area) 1.64 m2 Nikole Haile RN [facility] Work Phone: 06-29-2011 07:03-0400 Height 154.94 cm Nikole Haile RN [facility] Work Phone: 06-29-2011 07:03-0400 Pulse (Heart Rate) 68 /min Nikole Haile RN [facility] Work Phone: Comment on above: Pattern: Regular 06-29-2011 07:03-0400 Respiratory Rate 16 /min Nikole Haile RN [facility] Work Phone: Comment on above: Pattern: Unlabored 06-29-2011 07:03-0400 Weight 64.86 kg Mary Bethea [facility] Internal Medicine Work Phone: 07-27-2010 08:24-0400 BMI (Body Mass Index) 27.02 kg/m2 Salena Barone [facility] Internal Medicine Work Phone: 07-27-2010 08:24-0400 Body Temperature 96.3 [degF] Salena Barone [facility] Internal Medicine Work Phone: 07-27-2010 08:24-0400 Body weight 64.86 kg Salena Barone [facility] Internal Medicine Work Phone: 07-27-2010 08:24-0400 BP Diastolic 80 mm[Hg] Salena Barone [facility] Internal Medicine Work Phone: Comment on above: Patient Position: Sitting; Cuff Location : Left Arm; Cuff Size: Standard 07-27-2010 08:24-0400 BP Systolic 118 mm[Hg] Salena Barone [facility] Internal Medicine Work Phone: Comment on above: Patient Position: Sitting; Cuff Location : Left Arm; Cuff Size: Standard 07-27-2010 08:24-0400 BSA (Body Surface Area) 1.64 m2 Salena Barone [facility] Internal Medicine Work Phone: 07-27-2010 08:24-0400 Height 154.94 cm Salena Barone [facility] Internal Medicine Work Phone: 07-27-2010 08:24-0400 Pulse (Heart Rate) 68 /min Salena Barone [facility] Internal Medicine Work Phone: Comment on above: Pattern: Regular 07-27-2010 08:24-0400 Respiratory Rate 16 /min Salena Barone [facility] Internal Medicine Work Phone: Comment on above: Pattern: Unlabored 07-27-2010 08:24-0400 Weight 64.86 kg Mary Bethea [facility] Internal Medicine Work Phone: 11-26-2009 10:27-0400 Body Temperature 97.7 [degF] [facility] Internal Medicine Work Phone: Comment on above: Method: Oral 11-26-2009 10:27-0400 Body weight 66.45 kg [facility] Internal Medicine Work Phone: 11-26-2009 10:27-0400 BP Diastolic 88 mm[Hg] [facility] Internal Medicine Work Phone: Comment on above: Patient Position: Sitting; Cuff Location : Left Arm; Cuff Size: Standard 11-26-2009 10:27-0400 BP Systolic 120 mm[Hg] [facility] Internal Medicine Work Phone: Comment on above: Patient Position: Sitting; Cuff Location : Left Arm; Cuff Size: Standard 11-26-2009 10:27-0400 Pulse (Heart Rate) 76 /min Aide Betts [facility] Internal Medicine Work Phone: Comment on above: Pattern: Regular 11-26-2009 10:27-0400 Respiratory Rate 18 /min Aide Betts [facility] Internal Medicine Work Phone: Comment on above: Pattern: Unlabored 11-26-2009 10:27-0400 Weight 66.45 kg Mary Bethea [facility] Internal Medicine Work Phone: 10-20-2009 08:00-0400 Body Temperature 97.1 [degF] Esther Gorge NAVARRO [facility] Internal Medicine Work Phone: Comment on above: Method: Oral 10-20-2009 08:00-0400 Body weight 67.27 kg Esther Gorge NAVARRO [facility] Internal Medicine Work Phone: 10-20-2009 08:00-0400 BP Diastolic 72 mm[Hg] Esther Gorge NAVARRO [facility] Work Phone: Comment on above: Patient Position: Sitting; Cuff Location : Left Arm; Cuff Size: Standard 10-20-2009 08:00-0400 BP Systolic 120 mm[Hg] Esther Gorge NAVARRO [facility] Work Phone: Comment on above: Patient Position: Sitting; Cuff Location : Left Arm; Cuff Size: Standard 10-20-2009 08:00-0400 Pulse (Heart Rate) 76 /min Esther Gorge NAVARRO [facility] Internal Medicine Work Phone: Comment on above: Pattern: Regular 10-20-2009 08:00-0400 Pulse Oximetry 98 % Mary Bethea [facility] Internal Medicine Work Phone: Comment on above: Room air 10-20-2009 08:00-0400 Respiratory Rate 16 /min Esther Gorge NAVARRO [facility] Internal Medicine Work Phone: Comment on above: Pattern: Unlabored 10-20-2009 08:00-0400 SaO2% (BldA) [Mass fraction] 98 % Esther Pennington LPN [facility]; [facility] Work Phone: 10-20-2009 08:00-0400 Weight 67.27 kg Mary Bethea [facility] Internal Medicine Work Phone: 10-06-2009 08:39-0400 Pulse Oximetry 97 % Mary Bethea [facility] Internal Medicine Work Phone: Comment on above: Room air 10-06-2009 08:39-0400 SaO2% (BldA) [Mass fraction] 97 % Mary Bethea [facility] Work Phone: [facility]; [facility] Work Phone: 10-06-2009 08:07-0400 Body Temperature 99.2 [degF] Esther Pennington [employer] NURSE [employer]ACTITIONER [facility] Work Phone: Comment on above: Method: Oral 10-06-2009 08:07-0400 Body weight 67.27 kg Esther Pennington RAMON [facility] Work Phone: 10-06-2009 08:07-0400 BP Diastolic 84 mm[Hg] Esther Pennington POST ACUTE CARE NURSE PRACTITIONER [facility] Work Phone: Comment on above: Patient Position: Sitting; Cuff Location : Left Arm; Cuff Size: Standard 10-06-2009 08:07-0400 BP Systolic 112 mm[Hg] Esther Pennington POST ACUTE CARE NURSE PRACTITIONER [facility] Work Phone: Comment on above: Patient Position: Sitting; Cuff Location : Left Arm; Cuff Size: Standard 10-06-2009 08:07-0400 Pulse (Heart Rate) 74 /min Esther Pennington POST ACUTE CARE NURSE PRACTITIONER [facility] Work Phone: Comment on above: Pattern: Regular 10-06-2009 08:07-0400 Respiratory Rate 18 /min Esther Pennington POST ACUTE CARE NURSE PRACTITIONER [facility] Work Phone: Comment on above: Pattern: Unlabored 10-06-2009 08:07-0400 Weight 67.27 kg Mary Bethea [facility] Work Phone: 10-04-2009 08:00-0400 Body Temperature 95.6 [degF] Aide [employer] [facility] Work Phone: Comment on above: Method: Oral 10-04-2009 08:00-0400 Body weight 67.27 kg Aide [facility] Internal Medicine Work Phone: 10-04-2009 08:00-0400 BP Diastolic 78 mm[Hg] [facility] Medicine Work Phone: Comment on above: Patient Position: Sitting; Cuff Location : Left Arm; Cuff Size: Standard 10-04-2009 08:00-0400 BP Systolic 122 mm[Hg] [facility] Medicine Work Phone: Comment on above: Patient Position: Sitting; Cuff Location : Left Arm; Cuff Size: Standard 10-04-2009 08:00-0400 Pulse (Heart Rate) 72 /min [facility] Internal Medicine Work Phone: Comment on above: Pattern: Regular 10-04-2009 08:00-0400 Respiratory Rate 18 /min [facility] Internal Medicine Work Phone: Comment on above: Pattern: Unlabored 10-04-2009 08:00-0400 Weight 67.27 kg Mary Bethea [facility] Work Phone: 03-24-2009 08:12-0500 Body Temperature 97.3 [degF] Salena Barone [facility] Work Phone: 03-24-2009 08:12-0500 Body weight 68.04 kg Salena Barone [facility] Work Phone: 03-24-2009 08:12-0500 BP Diastolic 84 mm[Hg] Salena Barone [facility] Work Phone: Comment on above: Patient Position: Sitting; Cuff Location : Left Arm; Cuff Size: Standard 03-24-2009 08:12-0500 BP Systolic 130 mm[Hg] Salena Barone [facility] Work Phone: Comment on above: Patient Position: Sitting; Cuff Location : Left Arm; Cuff Size: Standard 03-24-2009 08:12-0500 Pulse (Heart Rate) 80 /min Salena Barone [facility] Internal Medicine Work Phone: Comment on above: Pattern: Regular 03-24-2009 08:12-0500 Respiratory Rate 16 /min Salena Barone [facility] Work Phone: Comment on above: Pattern: Unlabored 03-24-2009 08:12-0500 Weight 68.04 kg Mary Bethea [facility] Work Phone: 11-30-2008 08:23-0400 BMI (Body Mass Index) 27.02 kg/m2 Esther Pennington LPN [facility] Work Phone: 11-30-2008 08:23-0400 Body weight 64.86 kg Esther Pennington LPN [facility] Work Phone: 11-30-2008 08:23-0400 BP Diastolic 78 mm[Hg] Esther Pennington POST ACUTE CARE NURSE PRACTITIONER [facility] Work Phone: Comment on above: Patient Position: Sitting; Cuff Location : Left Arm; Cuff Size: Standard 11-30-2008 08:23-0400 BP Systolic 118 mm[Hg] Esther Pennington LPN [facility] Work Phone: Comment on above: Patient Position: Sitting; Cuff Location : Left Arm; Cuff Size: Standard 11-30-2008 08:23-0400 BSA (Body Surface Area) 1.64 m2 Esther Pennington LPN [facility] Work Phone: 11-30-2008 08:23-0400 Head Circumference 0 cm Mary Bethea [facility] Work Phone: 11-30-2008 08:23-0400 Head Occipital-frontal circumference 0 cm Esther Pennington POST ACUTE CARE NURSE PRACTITIONER [facility]; [facility] Work Phone: 11-30-2008 08:23-0400 Height 154.94 cm Esther Pennington POST ACUTE CARE NURSE PRACTITIONER [facility] Work Phone: 11-30-2008 08:23-0400 Pulse (Heart Rate) 72 /min Esther Pennington LPN [facility] Work Phone: Comment on above: Pattern: Regular 11-30-2008 08:23-0400 Respiratory Rate 16 /min Esther Pennington [facility] Work Phone: Comment on above: Pattern: Unlabored 11-30-2008 08:23-0400 Weight 64.86 kg Mary Bethea [facility] Work Phone: 11-27-2008 07:54-0400 Body weight 0 kg ROSSI Gustafson [facility] Work Phone: 11-27-2008 07:54-0400 BP Diastolic 72 mm[Hg] ROSSI Gustafson [facility] Work Phone: Comment on above: Patient Position: Sitting; Cuff Location : Left Arm; Cuff Size: Standard 11-27-2008 07:54-0400 BP Systolic 114 mm[Hg] ROSSI Gustafson [facility] Work Phone: Comment on above: Patient Position: Sitting; Cuff Location : Left Arm; Cuff Size: Standard 11-27-2008 07:54-0400 Head Circumference 0 cm Mary Alvaradoagustin [facility] Work Phone: 11-27-2008 07:54-0400 Head Occipital-frontal circumference 0 cm ROSSI Gustafson [facility]; [facility] Work Phone: 11-27-2008 07:54-0400 Height 0 cm ROSSI Gustafson POST ACUTE CARE NURSE PRACTITIONER [facility] Work Phone: 11-27-2008 07:54-0400 Pulse (Heart Rate) 74 /min ROSSI Gustafson [facility] Work Phone: Comment on above: Pattern: Regular 11-27-2008 07:54-0400 Respiratory Rate 16 /min ROSSI Gustafson [facility] Work Phone: Comment on above: Pattern: Unlabored 11-27-2008 07:54-0400 Weight 0 kg Mary Bethea [facility] Work Phone: 09-23-2008 09:11-0400 BMI (Body Mass Index) 27.02 kg/m2 Salena [facility] Internal [facility] Work Phone: 09-23-2008 09:11-0400 Body Temperature 97.5 [degF] Salena Barone [facility] Work Phone: Comment on above: Method: Undefined 09-23-2008 09:11-0400 Body weight 64.86 kg Salena Barone [facility] Work Phone: 09-23-2008 09:11-0400 BP Diastolic 70 mm[Hg] Salena Barone [facility] Work Phone: Comment on above: Patient Position: Sitting; Cuff Location : Right Arm; Cuff Size: Standard 09-23-2008 09:11-0400 BP Systolic 116 mm[Hg] Salena Barone [facility] Work Phone: Comment on above: Patient Position: Sitting; Cuff Location : Right Arm; Cuff Size: Standard 09-23-2008 [id number]:110400 BSA (Body Surface Area) 1.64 m2 Salena Benitezfrancheska [facility] Work Phone: 09-23-2008 09:11-0400 Head Circumference 0 cm Mary Bethea [facility] Work Phone: 09-23-2008 09:11-0400 Head Occipital-frontal circumference 0 cm Salena Lizabeth [facility]; [facility] Work Phone: 09-23-2008 09:11-0400 Height 154.94 cm Salena Benitezfrancheska [facility] Work Phone: 09-23-2008 09:11-0400 Pulse (Heart Rate) 80 /min [facility]ena [facility]spinorissa [facility] Work Phone: Comment on above: Pattern: Regular 09-23-2008 09:11-0400 Respiratory Rate 16 /min Salena Benitezfrancheska [facility] Work Phone: Comment on above: Pattern: Undefined 09-23-2008 09:11-0400 Weight 64.86 kg Mary Bethea [facility] Work Phone: 07-07-2008 07:53-0400 Body Temperature 98.8 [degF] Maria Victoria Armendariz RN [facility] Work Phone: Comment on above: Method: Oral 07-07-2008 07:53-0400 Body weight 0 kg Maria Victoria Armendariz RN [facility] Work Phone: 07-07-2008 07:53-0400 BP Diastolic 82 mm[Hg] Maria Victoria Armendariz RN [facility] Work Phone: Comment on above: Patient Position: Sitting; Cuff Location : Left Arm; Cuff Size: Standard 07-07-2008 07:53-0400 BP Systolic 122 mm[Hg] Maria Victoria Armendariz RN [facility] Work Phone: Comment on above: Patient Position: Sitting; Cuff Location : Left Arm; Cuff Size: Standard 07-07-2008 07:53-0400 Head Circumference 0 cm Mary Alvaradoantonio [facility] Work Phone: 07-07-2008 07:53-0400 Head Occipital-frontal circumference 0 cm Maria Victoria Armendariz RN [facility]; [facility] Work Phone: 07-07-2008 07:53-0400 Height 0 cm Maria Victoria Armendariz RN [facility] Work Phone: 07-07-2008 07:53-0400 Pulse (Heart Rate) 76 /min Maria Victoria Armendariz RN [facility] Work Phone: Comment on above: Pattern: Regular 07-07-2008 07:53-0400 Respiratory Rate 16 /min Maria Victoria Armendariz RN [facility] Work Phone: Comment on above: Pattern: Unlabored 07-07-2008 07:53-0400 Weight 0 kg Mary Phanagustin [facility] Work Phone: 06-09-2008 08:13-0400 Body Temperature 97.9 [degF] Julissa Rodríguez [facility] Work Phone: Comment on above: Method: Oral 06-09-2008 08:13-0400 Body weight 0 kg Julissa Rodríguez [facility] Work Phone: 06-09-2008 08:13-0400 BP Diastolic 68 mm[Hg] Julissa Rodríguez [facility] Work Phone: Comment on above: Patient Position: Sitting; Cuff Location : Left Arm; Cuff Size: Standard 06-09-2008 08:13-0400 BP Systolic 116 mm[Hg] [facility] Internal Medicine Work Phone: Comment on above: Patient Position: Sitting; Cuff Location : Left Arm; Cuff Size: Standard 06-09-2008 08:13-0400 Head Circumference 0 cm [facility] Internal Medicine Work Phone: 06-09-2008 08:13-0400 Head Occipital-frontal circumference 0 cm [facility] Internal [facility]; [facility] Work Phone: 06-09-2008 08:13-0400 Height 0 cm [facility] Medicine Work Phone: 06-09-2008 08:13-0400 Pulse (Heart Rate) 64 /min [facility] Medicine Work Phone: Comment on above: Pattern: Regular 06-09-2008 08:13-0400 Respiratory Rate 18 /min [facility] Medicine Work Phone: Comment on above: Pattern: Unlabored 06-09-2008 08:13-0400 Weight 0 kg [facility] Internal Medicine Work Phone: 02-05-2008 08:00-0500 Body Temperature 98.8 [degF] [facility] Internal Medicine Work Phone: Comment on above: Method: Oral 02-05-2008 08:00-0500 Body weight 64.41 kg [facility] Work Phone: 02-05-2008 08:00-0500 BP Diastolic 70 mm[Hg] [facility] Work Phone: Comment on above: Patient Position: Sitting; Cuff Location : Left Arm; Cuff Size: Standard 02-05-2008 08:00-0500 BP Systolic 108 mm[Hg] [facility] Medicine Work Phone: Comment on above: Patient Position: Sitting; Cuff Location : Left Arm; Cuff Size: Standard 02-05-2008 08:00-0500 Head Circumference 0 cm [facility] Medicine Work Phone: 02-05-2008 08:00-0500 Head Occipital-frontal circumference 0 cm Tania Lambert [facility]; [facility] Work Phone: 02-05-2008 08:00-0500 Height 0 cm Tania Lambert [facility] Work Phone: 02-05-2008 08:00-0500 Pulse (Heart Rate) 87 /min Tania Lambert [facility] Work Phone: Comment on above: Pattern: Regular 02-05-2008 08:00-0500 Pulse Oximetry 96 % Mary Bethea [facility] Work Phone: Comment on above: Room air 02-05-2008 08:00-0500 Respiratory Rate 18 /min Tania Lambert [facility] Work Phone: Comment on above: Pattern: Unlabored 02-05-2008 08:00-0500 SaO2% (BldA) [Mass fraction] 96 % Tania Lambert [facility]; [facility] Work Phone: 02-05-2008 08:00-0500 Weight 64.41 kg Mary Bethea [facility] Work Phone: 10-18-2007 09:55-0400 Body Temperature 97.2 [degF] Salena Espinorissa [facility] Work Phone: Comment on above: Method: Undefined 10-18-2007 09:55-0400 Body weight 64.41 kg Salena Benitezfrancheska [facility] Work Phone: 10-18-2007 09:55-0400 BP Diastolic 70 mm[Hg] Salena Barone [facility] Work Phone: Comment on above: Patient Position: Sitting; Cuff Location : Left Arm; Cuff Size: Large 10-18-2007 09:55-0400 BP Systolic 104 mm[Hg] Salena Flfrancheska [facility] Work Phone: Comment on above: Patient Position: Sitting; Cuff Location : Left Arm; Cuff Size: Large 10-18-2007 09:55-0400 Head Circumference 0 cm Mary Bethea [facility] Work Phone: 10-18-2007 09:55-0400 Head Occipital-frontal circumference 0 cm Salena Barone [facility]; [facility] Work Phone: 10-18-2007 09:55-0400 Height 0 cm Salena Barone [facility] Work Phone: 10-18-2007 09:55-0400 Pulse (Heart Rate) 60 /min Salena Barone [facility] Work Phone: Comment on above: Pattern: Regular 10-18-2007 09:55-0400 Respiratory Rate 16 /min Salena Barone [facility] Work Phone: Comment on above: Pattern: Undefined 10-18-2007 09:55-0400 Weight 64.41 kg Mary Bethea [facility] Work Phone: 04-05-2007 11:02-0500 Body Temperature 98.5 [degF] Maria Victoria Armendariz RN [facility] Work Phone: Comment on above: Method: Oral 04-05-2007 11:02-0500 Body weight 63.96 kg Maria Victoria Armendariz RN [facility] Work Phone: 04-05-2007 11:02-0500 BP Diastolic 82 mm[Hg] Maria Victoria Armendariz RN [facility] Work Phone: Comment on above: Patient Position: Sitting; Cuff Location : Left Arm; Cuff Size: Standard 04-05-2007 11:02-0500 BP Systolic 112 mm[Hg] Maria Victoria Armendariz RN [facility] Work Phone: Comment on above: Patient Position: Sitting; Cuff Location : Left Arm; Cuff Size: Standard 04-05-2007 11:02-0500 Head Circumference 0 cm Mary Bethea [facility] Work Phone: 04-05-2007 11:02-0500 Head Occipital-frontal circumference 0 cm Maria Victoria Armendariz RN [facility]; [facility] Work Phone: 04-05-2007 11:02-0500 Height 0 cm Maria Victoria Armendariz RN [facility] Work Phone: 04-05-2007 11:02-0500 Pulse (Heart Rate) 72 /min Maria Victoria Armendariz RN [facility] Work Phone: Comment on above: Pattern: Regular 04-05-2007 11:02-0500 Respiratory Rate 16 /min Maria Victoria Armendariz RN [facility] Work Phone: Comment on above: Pattern: Unlabored 04-05-2007 11:02-0500 Weight 63.96 kg Neema [facility] Work Phone: 12-19-2006 14:09-0400 BMI (Body Mass Index) 27.74 kg/m2 Salena Barone [facility] Work Phone: 12-19-2006 14:090400 Body Temperature 98.2 [degF] Salena Barone [facility] Work Phone: Comment on above: Method: Oral 12-19-2006 14:0400 Body weight 67.13 kg Salena Barone [facility] Work Phone: 12-19-2006 14:09-0400 BP Diastolic 74 mm[Hg] Salena Barone [facility] Work Phone: Comment on above: Patient Position: Sitting; Cuff Location : Left Arm; Cuff Size: Large 12-19-2006 14:090400 BP Systolic 110 mm[Hg] Salena Barone [facility] Work Phone: Comment on above: Patient Position: Sitting; Cuff Location : Left Arm; Cuff Size: Large 12-19-2006 14:090400 BSA (Body Surface Area) 1.67 m2 Salena Barone [facility] Work Phone: 12-19-2006 14:090400 Head Circumference 0 cm Neema [facility] Work Phone: 12-19-2006 14:090400 Head Occipital-frontal circumference 0 cm Salena Herrera Internal [facility]; [facility] Work Phone: 12-19-2006 14:09-0400 Height 155.57 cm Salena Barone [facility] Work Phone: 12-19-2006 14:09-0400 Pulse (Heart Rate) 68 /min Salena Barone [facility] Work Phone: Comment on above: Pattern: Regular 12-19-2006 14:09-0400 Respiratory Rate 16 /min Salena Barone [facility] Work Phone: Comment on above: Pattern: Unlabored 12-19-2006 14:09-0400 Weight 67.13 kg Mary Bethea [facility] Work Phone: 11-30-2006 07:33-0400 Body Temperature 98.1 [degF] Salena Barone [facility] Work Phone: Comment on above: Method: Oral 11-30-2006 07:33-0400 Body weight 67.13 kg Salena Barone [facility] Work Phone: 11-30-2006 07:33-0400 BP Diastolic 84 mm[Hg] Salena Barone [facility] Work Phone: Comment on above: Patient Position: Sitting; Cuff Location : Right Arm; Cuff Size: Standard 11-30-2006 07:33-0400 BP Systolic 116 mm[Hg] Salena Barone [facility] Work Phone: Comment on above: Patient Position: Sitting; Cuff Location : Right Arm; Cuff Size: Standard 11-30-2006 07:33-0400 Head Circumference 0 cm Mary Bethea [facility] Work Phone: 11-30-2006 07:33-0400 Head Occipital-frontal circumference 0 cm Salena Barone [facility]; [facility] Work Phone: 11-30-2006 07:33-0400 Height 0 cm Salena Barone [facility] Work Phone: 11-30-2006 07:33-0400 Pulse (Heart Rate) 64 /min Salena Barone [facility] Work Phone: Comment on above: Pattern: Regular 11-30-2006 07:33-0400 Respiratory Rate 16 /min Salena Espinorissa [facility] Work Phone: Comment on above: Pattern: Unlabored 11-30-2006 07:33-0400 Weight 67.13 kg Mary Bethea [facility] Work Phone: 04-19-2006 08:08-0500 Body Temperature 98.7 [degF] ROSSI Gustafson LPN [facility] Work Phone: Comment on above: Method: Oral 04-19-2006 08:08-0500 Body weight 0 kg ROSSI Gustafson LPN [facility] Work Phone: 04-19-2006 08:08-0500 BP Diastolic 80 mm[Hg] ROSSI Gustafson LPN [facility] Work Phone: Comment on above: Patient Position: Sitting; Cuff Location : Left Arm; Cuff Size: Standard 04-19-2006 08:08-0500 BP Systolic 110 mm[Hg] ROSSI Gustafson LPN [facility] Work Phone: Comment on above: Patient Position: Sitting; Cuff Location : Left Arm; Cuff Size: Standard 04-19-2006 08:08-0500 Head Circumference 0 cm Mary Bethea [facility] Work Phone: 04-19-2006 08:08-0500 Head Occipital-frontal circumference 0 cm ROSSI Gustafson LPN [facility]; [facility] Work Phone: 04-19-2006 08:08-0500 Height 0 cm ROSSI Gustafson LPN [facility] Work Phone: 04-19-2006 08:08-0500 Pulse (Heart Rate) 70 /min ROSSI Gustafson LPN [facility] Work Phone: Comment on above: Pattern: Regular 04-19-2006 08:08-0500 Respiratory Rate 20 /min ROSSI Gustafson LPN [facility] Work Phone: Comment on above: Pattern: Unlabored 04-19-2006 08:08-0500 Weight 0 kg Mary Bethea [facility] Work Phone: Encounters Encounter Date Encounter Type Care Provider Facility Start: 07-04-2024 End: 07-04-2024 Emergency department patient visit Alonso Marin Facility:[facility] Start: 01-27-2024 ambulatory Joaquin Ornelas y:[facility] Start: 01-27-2024 End: 01-29-2024 Evaluation and management of inpatient Joaquin Larose Facility:[facility] Start: 01-27-2024 ambulatory Karma Johnson [facility] Start: 05-23-2023 End: 05-23-2023 Emergency department patient visit [facility] Work Phone: Start: 08-01-2022 End: 08-01-2022 Office outpatient visit 15 minutes Marivel Cox CNP Work Phone: [facility] Start: 08-01-2022 Marivel Cox CNP Work Phone: [facility] Start: 06-07-2022 End: 06-19-2022 Office consultation new/estab patient 40 min Marivel Cox CNP Work Phone: [facility] Start: 06-05-2022 ambulatory Marivel Cox CNP [facility] Start: 06-04-2022 End: 06-04-2022 Emergency department patient visit SALES REPRESENTATIVE [employer]C Marivel Cox Work Phone: [facility]-Emergency Department Start: 05-08-2022 End: 05-08-2022 Marivel Cox CNP Work Phone: [facility] Start: 03-17-2022 End: 03-17-2022 Patient encounter procedure SALES REPRESENTATIVE [employer]-Nguyễn Cox Work Phone: [facility] Start: 03-17-2022 End: 03-22-2022 Office outpatient visit 15 minutes Marivel Cox CNP Work Phone: [facility] Start: 03-17-2022 Marivel Cox CNP Work Phone: [facility] Start: 01-31-2022 End: 01-31-2022 Office outpatient visit 15 minutes Marivel Cox CNP Work Phone: [facility] Start: 01-31-2022 Marivel Plunkettam DIRECTOR HOUSEKEEPING Work Phone: [facility] Start: 11-15-2021 End: 11-15-2021 Emergency department patient visit [facility]Emergency Department Start: 09-23-2021 End: 10-03-2021 Office outpatient visit 25 minutes Marivel Kenny DIRECTOR HOUSEKEEPING Work Phone: [facility] Start: 09-23-2021 Marivel Kenny DIRECTOR HOUSEKEEPING Work Phone: [facility] Start: 04-05-2021 End: 04-05-2021 Office outpatient visit 25 minutes Mary Bethea DIRECTOR HOUSEKEEPING Work Phone: [facility] Start: 04-05-2021 Mary Bethea DIRECTOR HOUSEKEEPING Work Phone: [facility] Start: 12-24-2020 End: 12-24-2020 Office outpatient visit 25 minutes Mary Bethea DIRECTOR HOUSEKEEPING Work Phone: [facility] Start: 09-17-2020 End: 09-17-2020 Office outpatient visit 25 minutes Mary Bethea DIRECTOR HOUSEKEEPING Work Phone: [facility] Start: 08-06-2020 End: 08-06-2020 Mary Bethea DIRECTOR HOUSEKEEPING Work Phone: [facility] Start: 2020 End: 2020 Patient encounter procedure Alonso East LPN [facility]; [facility] Work Phone: Start: 2020 End: 2020 Periodic preventive med est patient 65yrs& older Mary Bethea [facility] Start: 01-23-2020 End: 01-23-2020 Office outpatient visit 25 minutes Mary Bethea [facility] Start: 09-08-2019 End: 09-08-2019 Annotation/Addendum Mary Bethea [facility] Start: 09-08-2019 End: 09-08-2019 Mary Bethea DIRECTOR HOUSEKEEPING Work Phone: [facility] Start: 07-22-2019 End: 07-22-2019 Office outpatient visit 25 minutes Mary Bethea [facility] Start: 04-07-2019 End: 04-07-2019 Office outpatient visit 15 minutes Mary Phanagustin [facility] Start: 01-24-2019 End: 01-24-2019 Patient encounter procedure Marivel Cox DIRECTOR HOUSEKEEPING Work Phone: [facility] Start: 01-24-2019 End: 01-24-2019 Periodic preventive med est patient 65yrs& older Mary Phanagustin [facility] Start: 09-06-2018 End: 09-06-2018 Office outpatient visit 25 minutes Mary [facility] Start: 09-06-2018 Review Mary Alvaradoantonio Joshua [facility] Start: 05-24-2018 End: 05-24-2018 Annotation/Addendum Mary Bethea [facility] Start: 05-24-2018 End: 05-24-2018 Mary Bethea DIRECTOR HOUSEKEEPING Work Phone: [facility] Start: 05-10-2018 End: 05-10-2018 Office outpatient visit 25 minutes Mary [facility] Start: 02-06-2018 End: 02-06-2018 Annotation/Addendum Sylvesteragustin [facility] Start: 02-06-2018 End: 02-06-2018 Mary Phanagustin DIRECTOR HOUSEKEEPING Work Phone: [facility] Start: 01-15-2018 End: 01-15-2018 Office outpatient visit 25 minutes Jennyantonio [facility] Start: 12-18-2017 End: 12-18-2017 Office outpatient visit 25 minutes Sylvesteragustin [facility] Start: 08-07-2017 End: 08-07-2017 Office outpatient visit 25 minutes Mary [facility] Start: 06-12-2017 End: 06-12-2017 Office outpatient visit 25 minutes Sylvesteragustin [facility] Start: 04-11-2017 End: 04-11-2017 Annotation/Addendum Mary Phanagustin [facility] Start: 04-11-2017 End: 04-11-2017 Mary Phanagustin DIRECTOR HOUSEKEEPING Work Phone: [facility] Start: 04-06-2017 End: 04-06-2017 Office outpatient visit 15 minutes Mary [facility] Start: 11-27-2016 End: 11-27-2016 Office outpatient visit 25 minutes Mary [facility] Start: 08-02-2016 End: 08-02-2016 Office outpatient visit 25 minutes Mary Bethea [facility] Start: 06-20-2016 End: 06-20-2016 Annotation/Addendum Mary Bethea [facility] Start: 06-20-2016 End: 06-20-2016 Mary Bethea DIRECTOR HOUSEKEEPING Work Phone: [facility] Start: 04-25-2016 End: 04-25-2016 Annotation/Addendum Mary Bethea [facility] Start: 04-25-2016 End: 04-25-2016 Mary Bethea DIRECTOR HOUSEKEEPING Work Phone: [facility] Start: 04-12-2016 End: 04-12-2016 Office outpatient visit 25 minutes Mary Phanagustin [facility] Start: 03-27-2016 End: 03-27-2016 Annotation/Addendum Mary Bethea [facility] Start: 03-27-2016 End: 03-27-2016 Mary Bethea DIRECTOR HOUSEKEEPING Work Phone: [facility] Start: 03-22-2016 End: 03-22-2016 Office outpatient visit 25 minutes Mary Bethea [facility] Start: 03-15-2016 End: 03-15-2016 Office outpatient visit 25 minutes Mary Bethea [facility] Start: 04-29-2015 End: 04-29-2015 Lab Order Mary Bethea [facility] Start: 04-29-2015 End: 04-29-2015 Mary Bethea DIRECTOR HOUSEKEEPING Work Phone: [facility] Start: 04-26-2015 End: 04-26-2015 Lab Order Mary Bethea [facility] Start: 04-26-2015 End: 04-26-2015 Mary Bethea DIRECTOR HOUSEKEEPING Work Phone: [facility] Start: 04-05-2015 End: 04-05-2015 Office outpatient visit 25 minutes Mary Alvaradorocagustin [facility] Start: 02-12-2015 End: 02-15-2015 Office outpatient visit 40 minutes Mary Alvaradorocagustin [facility] Start: 11-06-2014 End: 11-06-2014 Office outpatient visit 15 minutes Mary Bethea [facility] Start: 10-20-2013 End: 10-20-2013 Office outpatient visit 25 minutes Mary Bethea [facility] Start: 05-27-2013 End: 05-27-2013 Office outpatient visit 15 minutes Mary Bethea [facility] Start: 03-14-2013 End: 03-14-2013 Phone Encounter Mary Bethea [facility] Start: 03-14-2013 End: 03-14-2013 Mary Bethea DIRECTOR HOUSEKEEPING Work Phone: [facility] Start: 03-12-2013 End: 03-12-2013 Patient encounter Mary Bethea [facility] Start: 03-12-2013 End: 03-12-2013 Mary Bethea DIRECTOR HOUSEKEEPING Work Phone: [facility] Start: 01-22-2013 End: 01-22-2013 Phone Encounter Mary Bethea [facility] Start: 01-22-2013 End: 01-22-2013 Mary Bethea DIRECTOR HOUSEKEEPING Work Phone: [facility] Start: 11-26-2012 End: 11-26-2012 Patient encounter Mary Bethea [facility] Start: 11-26-2012 End: 11-26-2012 Mary Bethea DIRECTOR HOUSEKEEPING Work Phone: [facility] Start: 06-14-2012 End: 06-14-2012 Office outpatient visit 15 minutes Mary Bethea [facility] Start: 05-24-2012 End: 05-24-2012 Patient encounter Mary Bethea [facility] Start: 05-24-2012 End: 05-24-2012 Mary Bethea DIRECTOR HOUSEKEEPING Work Phone: [facility] Start: 03-27-2012 End: 03-27-2012 Phone Encounter Mary Bethea [facility] Start: 03-27-2012 End: 03-27-2012 Mary Bethea DIRECTOR HOUSEKEEPING Work Phone: [facility] Start: 01-17-2012 End: 01-17-2012 Patient encounter Mary Bethea [facility] Start: 01-17-2012 End: 01-17-2012 Mary Bethea DIRECTOR HOUSEKEEPING Work Phone: [facility] Start: 10-26-2011 End: 10-27-2011 Patient encounter Mary Bethea [facility] Start: 10-26-2011 End: 10-27-2011 Mary Behtea DIRECTOR HOUSEKEEPING Work Phone: [facility] Start: 10-10-2011 End: 10-10-2011 Office outpatient visit 15 minutes Mary Bethea [facility] Start: 07-07-2011 End: 07-07-2011 Patient encounter Mary Bethea [facility] Start: 07-07-2011 End: 07-07-2011 Mary Bethea DIRECTOR HOUSEKEEPING Work Phone: [facility] Start: 07-03-2011 End: 07-03-2011 Office outpatient visit 25 minutes Mary Bethea [facility] Start: 06-29-2011 End: 06-29-2011 Patient encounter Mary Bethea [facility] Start: 06-29-2011 End: 06-29-2011 Mary Bethea DIRECTOR HOUSEKEEPING Work Phone: [facility] Start: 07-27-2010 End: 07-27-2010 Patient encounter Sherrill Fito [facility] Start: 07-27-2010 End: 07-27-2010 Mary Bethea DIRECTOR HOUSEKEEPING Work Phone: [facility] Start: 07-15-2010 End: 07-15-2010 Phone Encounter Mary Bethea [facility] Start: 07-15-2010 End: 07-15-2010 Mary Bethea DIRECTOR HOUSEKEEPING Work Phone: [facility] Start: 11-26-2009 End: 11-28-2009 Patient encounter Mary Bethea [facility] Start: 11-26-2009 End: 11-28-2009 Mary Bethea DIRECTOR HOUSEKEEPING Work Phone: [facility] Start: 10-20-2009 End: 10-20-2009 Office outpatient visit 15 minutes Mary Bethea [facility] Start: 10-06-2009 End: 10-06-2009 Patient encounter Mary Bethea [facility] Start: 10-06-2009 End: 10-06-2009 Mary Bethea DIRECTOR HOUSEKEEPING Work Phone: [facility] Start: 10-06-2009 End: 10-06-2009 Office outpatient visit 25 minutes Mary Bethea [facility] Start: 10-04-2009 End: 10-04-2009 Office outpatient visit 25 minutes Mary Bethea [facility] Start: 07-14-2009 End: 07-14-2009 Historical Summary Mary Bethea [facility] Start: 07-14-2009 End: 07-14-2009 Mary Bethea DIRECTOR HOUSEKEEPING Work Phone: [facility] Start: 03-24-2009 End: 03-25-2009 Patient encounter Mary Bethea [facility] Start: 03-24-2009 End: 03-25-2009 Mary Bethea DIRECTOR HOUSEKEEPING Work Phone: [facility] Start: 11-30-2008 End: 11-30-2008 Patient encounter Mary Bethea [facility] Start: 11-30-2008 End: 11-30-2008 Mary Bethea DIRECTOR HOUSEKEEPING Work Phone: [facility] Start: 11-27-2008 End: 11-27-2008 Patient encounter Mary Bethea [facility] Start: 11-27-2008 End: 11-27-2008 Mary Bethea DIRECTOR HOUSEKEEPING Work Phone: [facility] Start: 09-23-2008 End: 09-23-2008 Patient encounter Mary Bethea [facility] Start: 09-23-2008 End: 09-23-2008 Mary Bethea DIRECTOR HOUSEKEEPING Work Phone: [facility] Start: 07-07-2008 End: 07-07-2008 Office outpatient visit 15 minutes Mary Bethea [facility] Start: 06-09-2008 End: 06-09-2008 Office outpatient visit 15 minutes Mary Bethea [facility] Start: 02-05-2008 End: 02-05-2008 Office outpatient visit 15 minutes Mary Bethea [facility] Start: 10-18-2007 End: 10-20-2007 Patient encounter Mary Bethea [facility] Start: 10-18-2007 End: 10-20-2007 Mary Bethea DIRECTOR HOUSEKEEPING Work Phone: [facility] Start: 04-05-2007 End: 04-08-2007 Patient encounter Mary Bethea [facility] Start: 04-05-2007 End: 04-08-2007 Mary Bethea DIRECTOR HOUSEKEEPING Work Phone: [facility] Start: 12-21-2006 End: 12-21-2006 Refill Request Mary Bethea [facility] Start: 12-21-2006 End: 12-21-2006 Mary Bethea DIRECTOR HOUSEKEEPING Work Phone: [facility] Start: 12-19-2006 End: 12-20-2006 Patient encounter Mary Bethea [facility] Start: 12-19-2006 End: 12-20-2006 Mary Bethea DIRECTOR HOUSEKEEPING Work Phone: [facility] Start: 11-30-2006 End: 11-30-2006 Office outpatient visit 40 minutes Mary Bethea [facility] Start: 11-29-2006 End: 11-29-2006 Historical Summary Mary Bethea [facility] Start: 11-29-2006 End: 11-29-2006 Mary Bethea DIRECTOR HOUSEKEEPING Work Phone: [facility] Start: 04-19-2006 End: 04-19-2006 Office outpatient visit 25 minutes Mary Bethea [facility] Start: 11-23-2005 End: 11-23-2005 Historical Summary Mary Behtea [facility] Start: 11-23-2005 End: 11-23-2005 Mary Bethea DIRECTOR HOUSEKEEPING Work Phone: [facility] Patient encounter procedure Alonso East LPN [facility] Work Phone: Patient encounter procedure Alonso East LPN [facility]; [facility] Work Phone: Patient encounter procedure Linda Pappas MA [facility] Work Phone: Patient encounter procedure Sherrill Slarb POST ACUTE CARE NURSE PRACTITIONER [facility] Work Phone: Patient encounter procedure Sherrill Slarb POST ACUTE CARE NURSE PRACTITIONER [facility] Work Phone: Patient encounter procedure Yaritza Newberry MA [facility]; [facility] Work Phone: Patient encounter procedure Sherrill Slarb POST ACUTE CARE NURSE PRACTITIONER [facility]; [facility] Work Phone: Patient encounter procedure Sherrill Slarb POST ACUTE CARE NURSE PRACTITIONER [facility]; [facility] Work Phone: Procedures Date Procedure Procedure Detail Performing Clinician Start: 05-23-2023 SARS-CoV-2, Influenza & RSV (PCR) Start: 05-23-2023 Plain chest X-ray Start: 06-04-2022 End: 06-04-2022 Procedure Note: See Note; NOTES: [facility] Medical Records Department [address] [place] [address] Emergency Department Summary 06/04/22 MR#: [id number] Acct: [id number] Name: ARIS CR Rep #: [id number] : 1945 77 From: Marilyn Mayers DO PCP: NEYMAR Law Status:DEP ER Location: ED HPI History of Present Illness Chief Complaint: Alt LOC Detail of Chief Complaint: Syncope/mental status change Informant: family Narrative Narrative: Patient presents to the emergency department via EMS with complaint of mental status change. Apparently they were at a birthday democrat with family and while seated she was noted to be going in and out of consciousness.. On EMS arrival patient was hypotensive. Patient has not been ill recently. Patient is a very poor historian as she has history of dementia that she has been been diagnosed with for about 7 or 8 years. The history comes from and family members. Patient has never had an episode like this before. PFSH PFSH Medical History Dementia Hyperlipidemia Hypertension Kidney stones Non-smoker Home Medications Quinapril Hcl [Accupril] 10 mg PO DAILY 07/31/16 [History Last Taken 07/31/16] diazepam 2 mg tablet 2 mg PO QHS PRN PRN Muscle Spasm ##5 07/31/16 [Rx Last Taken Unknown] memantine 10 mg tablet 10 mg PO BID 07/31/16 [History Last Taken 07/31/16] cephalexin 250 mg/5 mL oral suspension 500 mg (10 mL) PO TID 7 days #210 mL 11/15/21 [Rx Last Taken Unknown] lisinopril 10 mg tablet 10 mg PO DAILY 06/04/22 [History Last Taken Unknown] Allergy/AdvReac Type Severity Reaction Status Date / Time No Known Allergies Allergy Verified 06/04/22 17:52 Surgical History History of hysterectomy Social History Smoking Status: Never smoker ROS ROS ED Review of Systems ROS Unobtainable: due to mental condition and due to mental status EXAM Physical Exam Const Vital Signs: 06/04/22 17:47 06/04/22 17:53 06/04/22 18:58 Temperature 96.7 F L Temperature Source Temporal Pulse Rate 79 71 93 Respiratory Rate 17 17 15 Blood Pressure 90/55 L 90/55 L 106/65 Blood Pressure Mean 66 66 78 Pulse Ox 97 98 98 Oxygen Delivery Method Room Air Room Air Room Air Positive well nourished and well developed General Appearance ED: well developed and NAD HEENT Reports TM's clear and moist mucous membranes normocephalic and atraumatic; Negative for trauma or tenderness Tympanic Membrane ED: Yes TM's clear Eyes PERRL and EOMs intact bilaterally General Eye ED: Negative for pale conjunctiva or scleral icterus Neck no lymphadenopathy, supple and no JVD General: Negative for tenderness Chest Wall inspection of chest normal and palpation of chest normal Chest: Negative for tenderness Resp normal respiratory effort and clear to auscultation bilaterally Effort and Inspection: Negative for respiratory distress or pain with movement Auscultation: Negative for rhonchi, wheezes or diminished lung sounds Cardio regular rate, regular rhythm, S1 normal heart sound, S2 normal heart sound and no murmurs Peripheral Pulses: pulses 2+ throughout GI normal to inspection, nondistended, normoactive bowel sounds, soft to palpation, non-tender, non- distended and no masses Back/Spine no CVA tenderness and no thoracic nor lumbar tenderness Extremity normal to inspection General Extremety ED: Negative for edema General Extremity: Negative for edema Neuro oriented x3, CN's II-XII intact bilaterally, no sensory deficits noted and gait normal Neuro Narrative: Patient is awake and alert to person. She attempts to follow commands. No focal deficits noted. Sensorium / Orientation: awake, alert, oriented to person, oriented to place and oriented to time Motor Exam: strength 5/5 throughout and strength abnormal Psych mental status grossly normal Skin no rashes or lesions noted and no wounds MDM MDM MDM Narrative Medical decision making narrative: Patient presents with near syncopal episode and hypotension while at a birthday democrat. Prior to patient's episode she was blowing out some candles on a cake. Patient's not had an episode like this before. She is not a good historian therefore the history comes from the . EKG obtained on arrival showed a sinus rhythm with a rate of 74 bpm with no acute ST segment changes. CBC with differential was normal. Chemistries were normal. BUN 20 and creatinine 1.49. Troponin was normal at 12. CT scan of the brain without contrast showed chronic involutional changes with no acute findings. Urinalysis was normal. 1 department she was given a liter normal same fluid bolus and her blood pressure normalized. She was ambulated in the department and was able to ambulate without difficulty. Her and family believes she is back to her baseline. At this point etiology of her episode unclear although I suspect likely vagal reaction. I advised on pushing fluids and follow-up with primary care physician within next 3 to 5 days. Lab Data Attestation: I reviewed the patient's lab results. Labs: Laboratory Results - last 24 hr 06/04/22 06/04/22 06/04/22 17:50 17:50 18:21 WBC 9.3 RBC 4.88 Hgb 14.2 Hct 42.6 MCV 87.3 MCH 29.1 MCHC 33.3 RDW Std Deviation 42.7 RDW Coeff of Karen 13.4 Plt Count 186 MPV 8.9 Immature Gran % (Auto) 0.500 Neut % (Auto) 57.7 Lymph % (Auto) 32.4 [place] % (Auto) 8.1 Eos % (Auto) 0.9 Baso % (Auto) 0.4 Absolute Neuts (auto) 5.3 Absolute Lymphs (auto) 3.00 Nucleated RBC % 0 Sodium 140 Potassium 3.8 Chloride 110 H Carbon Dioxide 24.0 Anion Gap 6 BUN 20 H Creatinine 1.49 H Estim Creat Clear Calc 24.24 Est GFR (MDRD) Af Amer 44 L Est GFR (MDRD) Non-Af 36 L BUN/Creatinine Ratio 13.4 Glucose 183 H Calcium 9.3 Troponin I High Sens 12 Urine Color Yellow Urine Clarity Clear Urine pH 5.0 Ur Specific [place] 1.020 Urine Protein 30 H Urine Glucose (UA) Normal Urine Ketones Negative Urine Occult Blood 50 H Urine Nitrite Negative Urine Bilirubin Negative Urine Urobilinogen 1 H Ur Leukocyte Esterase Negative Urine RBC 0-5 SEEN Urine WBC 0 SEEN Ur Squamous Epith Cells 0 SEEN Urine Bacteria 0 SEEN Hyaline Casts 5-10 SEEN Urine Mucus RARE Radiography Diagnostic Testing: Clinical Impression(s) from Imaging Studies Brain CT 06/04/22 18:10 IMPRESSION: There are no acute findings. Chronic involutional changes of the brain. Electronically Signed: Armando Pollack MD at 18:59 EDT , EKG Initial EKG: Attestation: I personally reviewed and interpreted this EKG as follows: Comments: Sinus rhythm with a rate of 74 bpm with no acute ST segment changes noted. Discharge Plan Triage Chief Complaint: Alt LOC ED Provider: Marilyn Mayers Dx/Rx/DC Orders Clinical Impression: Syncope, near, Transient hypotension, Acute renal insufficiency Instructions: ED Fainting, Vagal Reaction, ED Near-Fainting, Uncertain Cause Prescriptions: No Action memantine 10 MG tablet 10 mg PO BID Quinapril Hcl [Accupril] 10 MG tablet 10 mg PO DAILY diazepam 2 MG tablet 2 mg PO QHS PRN PRN (Reason: Muscle Spasm) Qty: 5 0RF cephalexin 250 mg/5 mL suspension for reconstitution 500 mg PO TID 7 Days Qty: 210 0RF lisinopril 10 mg tablet 10 mg PO DAILY Label Comments: TAKE 1 TABLET BY MOUTH ONCE DAILY Primary Care Provider: Marivel Cox Referrals: Marivel Cox, NICOLA-C [Primary Care Provider] - 3-5 Days Disposition Disposition: Home, Self Care What to do if you have Problems For any increased pain, shortness of breath, bleeding, nausea or vomiting, chest pain, or any unexpected problems, contact your Primary Care Provider. Call [facility] ([phone]) or report to the closest Emergency Room. Call 911 if necessary. 06/04/222307 <Electronically signed by Marilyn Mayers DO> Cosigner Signature (if applicable): CC: NEYMAR Cox Signed Marivel Cox [facility] Work Phone: Start: 06-04-2022 CT of head without contrast NEYMAR Cox Work Phone: Start: 06-04-2022 End: 06-04-2022 Procedure Note: See Note; NOTES: [facility] Imaging Services [address] [place] [address] Brain/Head without Contrast MR#: [id number] Acct: [id number] Name: ARIS CR Rep #: [id number] : 1945 F 77 From: Armando Mascorro PCP: NEYMAR Law Status: REG ER Study: Brain/Head without Contrast Date of Exam: 04/27 Exam# [id number] Ordering Dr: Marilyn Mayers DO STUDY: CT BRAIN WITHOUT CONTRAST REASON FOR EXAM: Female, 77 years old. confusion Individualized dose optimization techniques were used for this CT. TECHNIQUE: Transaxial CT imaging of the brain was performed without administration of intravenous contrast material. COMPARISON: 05.16.16 FINDINGS: There are calcifications noted in the distal vertebral arteries. There are calcifications noted in the cavernous carotid arteries. This is consistent for atherosclerotic disease. Normal calvarium. Normal soft tissues. There is mild cerebral atrophy with widening of the extra-axial spaces and ventricular dilatation. There are areas of decreased attenuation within the white matter tracts of the supratentorial brain, consistent with microvascular disease changes. Normal basal ganglia and thalami. Normal brainstem. There is mild cerebellar atrophy. There is no intracranial hemorrhage. There are no findings of an acute ischemic infarction. Normal visualized paranasal sinuses. ASPECTS Score for Acute Strokes: 12/12 CT/Brain/Head without Contrast IMPRESSION: There are no acute findings. Chronic involutional changes of the brain. Electronically Signed: Armando Pollack MD at 18:59 EDT Reading Location ID and State: [facility] / [place] , Service support , CC: NEYMAR Cox; Dr. Marilyn Mayers DO Customs Entry Writer: Signed Marivel Cox CNP Work Phone: Start: 06-04-2022 End: 06-07-2022 Procedure Note: See Note; NOTES: [facility] Cardiovascular Services [address] [place] [address] 12 Lead EKG 06/04/22 1751 MR#: [id number] Acct: [id number] Name: ARIS CR Rep #: [id number] : 1945 77 From: Jarrett Lee MD Attending Dr: Status: DEP ER Ordering Dr: Carson Boswell Date: 06/04/22 Location: ED Sex: F C Admitted: Test Reason : POSS SYNCOPE Blood Pressure : / mmHG Vent. Rate : 074 BPM Atrial Rate : 074 BPM P-R Int : 160 ms QRS Dur : 072 ms QT Int : 406 ms P-R-T Axes : 033 -01 013 degrees QTc Int : 450 ms Normal sinus rhythm Inferior infarct , age undetermined Abnormal ECG Confirmed by JAYRO DON, KELLY ([id number]), supervising editor news reel CHARITO HAJI [id number]) on 06/07/2022 10:01:19 AM Referred By: GABRIELA/ETHAN Confirmed By:AKIKO LEE MD 06/07/22 1001 Date Jarrett Lee MD CC: NICOLA-C Marivel Cox; Dr. Marilyn Mayers DO; ED PHYSICIAN PROVIDER Signed Marivel Cox CNP Work Phone: Start: 03-17-2022 Plain X-ray of shoulder SALES REPRESENTATIVE [employer] Marivel gaitan Work Phone: Start: 03-17-2022 End: 03-17-2022 Procedure Note: See Note; NOTES: [place] [facility] [address] [place] [address] Shoulder min 2 Views MR#: [id number] Acct: [id number] Name: ARIS CR Rep #: [id number] : 1945 F 76 From: Leonardo Bonilla MD PCP: NEYMAR Law Status: DEP AMB Study: Shoulder min 2 Views Date of Exam: 03/17/22 Exam# [id number] Ordering Dr: Marivel Cox INDICATION: PAIN EXAMINATION/TECHNIQUE: X-RAY - RIGHT XR Shoulder Min 2 Views 4 VIEWS COMPARISON: None. FINDINGS: SOFT TISSUES: No soft tissue swelling or gas. No radiopaque foreign body. BONES/JOINTS: No acute fracture or subluxation.. Normal alignment. Mildly narrowed glenohumeral joint. .. No sclerotic or destructive changes observed. RAD/Shoulder min 2 Views IMPRESSION: Mild degenerative change. No acute fracture or other significant bony pathology Electronically Signed: Leonardo Bonilla MD at 17:25 EST Reading Location ID and State: [facility] / [place] , Service support , CC: NEYMAR Cox Customs Entry Writer: Signed Marivel Cox [facility] Work Phone: Start: 11-15-2021 Plain x-ray of hand Start: 11-15-2021 End: 11-15-2021 Procedure Note: See Note; NOTES: [facility] Imaging Services [address] [place] [id number] Hand Min 3 Views MR#: [id number] Acct: [id number] Name: ARIS CR Rep #: [id number] : 1945 F 76 From: Armando Mascorro PCP: NEYMAR Law Status: REG ER Study: Hand Min 3 Views Date of Exam: 11/15/21 Exam# [id number] Ordering Dr: Daniel Awad DO STUDY: XR Hand Min 3 Views REASON FOR EXAM: Female, 76 years old. pain TECHNIQUE: XR Hand Min 3 Views RIGHT COMPARISON: None. FINDINGS: Normal radiocarpal articulation. Normal distal radioulnar joint. Normal visualized carpal bones. There is degenerative joint disease of the carpal articulations. There is degenerative arthrosis of the carpometacarpal (CMC) articulation of the thumb. Normal second through fifth carpometacarpal joints. Normal metacarpi. Normal metacarpophalangeal joint of the thumb. Normal interphalangeal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 consistent with microvascular disease changes. These findings predominate in the deep periventricular frontal lobe white matter of each hemisphere. Normal basal ganglia and thalami. Normal brainstem. Normal cerebellum. Normal bilateral petrous carotid arteries. There is calcified plaque formation of the right cavernous carotid artery, without a cross-sectional luminal stenosis. There is calcified plaque formation of the left cavernous carotid artery, without a cross-sectional luminal stenosis. There is hypoplastic development of the right A1 segment of the anterior cerebral arteries with an atretic but intact artery. Normal left A1 segments of the anterior cerebral artery. Normal intact anterior communicating artery (ACOM). Normal bilateral A2 segments of the anterior cerebral arteries. Normal right M1 and M2 segments of the middle cerebral arteries, with a normal M1 bifurcation. Normal left M1 and M2 segments of the middle cerebral arteries, with a normal M1 bifurcation. Normal right posterior communicating artery (PCOM). There is non-visualization of the left posterior communicating artery (PCOM). Normal bilateral vertebral arteries. Normal basilar artery with a normal basilar bifurcation. The visualized bilateral superior cerebellar (SCA) arteries are normal. Normal bilateral P1, P2 and visualized P3 segments of the posterior cerebral arteries. There is no demonstrated aneurysm of the [place]. There is no demonstrated abnormality of the visualized brain. CT/CTA Head W/WO Contrast IMPRESSION: Incomplete [place]. Calculated stenosis of the right cavernous carotid artery is 47%. Stenosis of the left cavernous carotid artery is less than 50%. Electronically Signed: Armando Pollack MD at 23:09 EDT , Service support [phone], CC: Mary Bethea; Refugio Moreno Customs Entry Writer: Signed Refugio Moreno Work Phone: Start: 03-30-2016 End: 03-30-2016 Brain W/WO Contrast Comments: See Note; NOTES: [facility] Imaging Services [address] [place] [address] Ver[address] 4d Brain W/WO Contrast MR#: [id number] Acct: [id number] Name: ARIS CR Rep #: [id number] : 1945 F 70 From: Jenny Page MD PCP: Mary Bethea Status: REG CLI Study: Brain W/WO Contrast Date of Exam: 03/30/16 Exam# [id number] Ordering Dr: Mary Bethea STUDY: MRI BRAIN WITH AND WITHOUT CONTRAST REASON FOR EXAM: Female, 70 years old. Short-term memory loss. Patient fell 2 years ago with closed head injury. TECHNIQUE: Standardized multiplanar fat and water weighted pulse sequences were obtained. 6 ml of Gadavist contrast material was administered intravenously for the contrast portion of the examination. COMPARISON: None. FINDINGS: There is mild cerebral atrophy with widening of the extra-axial spaces and ventricular dilatation. There are a limited number of small white matter hyperintensities, distributed throughout the deep white matter tracts of the cerebral hemispheres, consistent with mild chronic white matter ischemic changes. There is no evidence for recent intracranial ischemia or other cause of cytotoxic edema on diffusion weighted imaging (DWI). Normal T2* images of the brain without demonstrated susceptibility artifact. There is no demonstrated hemosiderin stain. There are prominent perivascular spaces (PVS) involving the basal ganglia. Normal thalami. There is no extra-axial fluid accumulation. Normal flow voids within the major intracranial circulation suggesting patency by spin echo criteria. Normal venous enhancement. There is no enhancing intra-axial or extra-axial abnormality. Normal sella turcica, pituitary gland, infundibular stalk, optic chiasm and hypothalamus. Normal tectal plate and pineal gland. Normal midbrain, bambi and medulla. Normal cerebellum. There may be a cystic lesion of the left cerebellomedullary angle measuring approximately 9.1 mm. This has signal that is isointense to CSF on all sequences. This is of uncertain clinical significance. Normal bilateral temporal bones. Normal bilateral internal auditory canals. No demonstrated orbital abnormality, within the constraints of a routine brain study. There is left maxillary mucous retention cyst versus polyp measuring approximately 1.5 cm. There is mild mucoperiosteal thickening within the ethmoid sinuses. Normal calvarium and skull base. Normal visualized soft tissue structures. Normal visualized upper cervical spine. MRI/Brain W/WO Contrast IMPRESSION: 1. Involutional changes of the brain, as described above. 2. Left cerebellomedullary angle arachnoid cyst. 3. No MR evidence for acute infarct. Electronically Signed: Jenny Page MD at 10:36 EST , Service support [phone], CC: Mary Bethea Customs Entry Writer: Signed Mary Bethea Work Phone: Start: 03-30-2016 End: 03-30-2016 MRA Head ONLY without Contrast Comments: See Note; NOTES: [facility] Imaging Services [address] [place] [address] Vincentdana 4d MRA Head ONLY without Contrast MR#: [id number] Acct: [id number] Name: ARIS CR Rep #: [id number] : 1945 F 70 From: Jenny Page MD PCP: Mary Bethea Status: REG CLI Study: MRA Head ONLY without Contrast Date of Exam: 03/30/16 Exam# [id number] Ordering Dr: Mary Bethea STUDY: MRA OF THE HEAD WITHOUT CONTRAST REASON FOR EXAM: Female, 70 years old. Short-term memory loss. TECHNIQUE: 3-D zztt-nt-anyprv (TOF) imaging was performed with MIPs. The study was performed unenhanced. COMPARISON: None. FINDINGS: Normal bilateral petrous carotid arteries. There is atheromatous plague formation of the right cavernous carotid artery, with a moderate stenosis (50-75%). Normal left cavernous carotid artery with a normal supraclinoid bifurcation. There is non-visualization of the right A1 segment of the anterior cerebral arteries consistent with either aplastic development or an occlusion. Normal left A1 segments of the anterior cerebral artery. Normal intact anterior communicating artery (ACOM). Normal bilateral A2 segments of the anterior cerebral arteries. There is irregularity of the right M1 and M2 branches with minimal luminal narrowing, suggesting atherosclerotic plaque formation, without an occlusion. There is irregularity of the left M1 and M2 branches with minimal luminal narrowing, suggesting atherosclerotic plaque formation, without an occlusion. There is non-visualization of the right posterior communicating artery (PCOM). Normal left posterior communicating artery (PCOM). Normal bilateral vertebral arteries. Normal basilar artery with a normal basilar bifurcation. The visualized bilateral superior cerebellar (SCA) arteries are normal. Normal bilateral P1, P2 and visualized P3 segments of the posterior cerebral arteries. There is no demonstrated aneurysm of the [place]. Involutional changes of the brain are present. MRI/MRA Head ONLY without Contrast IMPRESSION: 1. Hemodynamically significant stenosis of the right cavernous internal carotid artery. 2. Incomplete [place]. Electronically Signed: Jenny Page MD at 9:41 EST , Service support [phone], CC: Mary Bethea Customs Entry Writer: Signed Denise Neema Work Phone: Start: 03-29-2016 End: 03-29-2016 Carotid Duplex Ultrasound Comments: See Note; NOTES: [facility] Cardiovascular Services [address] [place] [address] Carotid Duplex Ultrasound 03/29/16 0947 MR#: [id number] Acct: [id number] Name: ARIS CR Rep #: [id number] : 1945 70 From: Roman Neri MD Attending Dr: Mary Bethea Status: REG CLI Ordering Dr: Mary Bethea Date: 03/29/16 Location: [facility] Sex: F C Admitted: Reason For Study: memory loss Rt. Velocities/BP Lt. Velocities/BP Prox CCA 62.1/14.7 cm/sec. Prox CCA 87.4/24.6 cm/sec. Mid CCA 65.1/19.9 cm/sec. Mid CCA 76.2/27.0 cm/sec. Dist CCA 65.7/20.5 cm/sec. Dist CCA 62.1/22.3 cm/sec. Prox ICA 62.1/18.5 cm/sec. Prox ICA 59.2/22.9 cm/sec. Mid ICA 72.1/24.6 cm/sec. Mid ICA 50.7/18.9 cm/sec. Dist ICA 120.0/41.6 cm/sec. Dist ICA 80.3/36.9 cm/sec. Rt. ICA/CCA = 1.8. Lt. ICA/CCA = 1.05. Prox ECA 68.6/17.6 cm/sec. Prox ECA 70.9/16.4 cm/sec. Rt. Vert. 49.5/14.9 cm/sec. Lt. Vert. 39.3/16.5 cm/sec. Right Extracranial There is intimal thickening but no significant atherosclerotic plaque noted in the right common carotid artery. There is homogeneous, smooth atherosclerotic plaque noted in the right internal carotid artery. The tortuous nature of the right distal internal carotid artery may result in flow velocities overestimating the degree of stenosis. There is intimal thickening but no significant atherosclerotic plaque noted in the right external carotid artery. Antegrade flow is noted in the right vertebral artery. Left Extracranial There is intimal thickening but no significant atherosclerotic plaque noted in the left common carotid artery. There is heterogeneous, smooth atherosclerotic plaque noted in the left internal carotid artery. There is intimal thickening but no significant atherosclerotic plaque noted in the left external carotid artery. Antegrade flow is noted in the left vertebral artery. Procedure Carotid Duplex [address]. The exam was diagnostic. Exam performed in department. Interpretation Summary Mild (<50%) stenosis right extracranial internal carotid. Mild (<50%) stenosis left extracranial internal carotid. Flow within the vertebral arteries is antegrade bilaterally. Ordering Physician: Mary Bethea Performed By: China Medellin, RDCS, RVT 03/29/161226 Date Roman Neri MD CC: Mary Bethea Date Dictated: 03/29/16 0947 Date Transcribed: 03/29/161226 Customs Entry Writer: Signed Mary Bethea Work Phone: Start: 03-28-2016 End: 03-28-2016 Brain/Head without Contrast Comments: See Note; NOTES: [facility] Imaging Services [address] [place] [address] Verdana 4d Brain/Head without Contrast MR#: [id number] Acct: [id number] Name: ARIS CR Rep #: [id number] : 1945 F 70 From: Raul Norris MD PCP: Mary Bethea Status: REG CLI Study: Brain/Head without Contrast Date of Exam: 03/28/16 Exam# [id number] Ordering Dr: Mary Bethea STUDY: CT BRAIN WITHOUT CONTRAST REASON FOR EXAM: Female, 70 years old. Short-term memory loss RADIATION DOSAGE (If Supplied By Facility): CTDIvol = ( 44.99 ) mGy, DLP = ( 745.49 ) mGycm TECHNIQUE: Transaxial CT imaging of the brain was performed without administration of intravenous contrast material. Individualized dose optimization techniques were used for this CT. COMPARISON: 02/12/2015 FINDINGS: Normal soft tissue structures. Normal calvarium. There are slight atrophic changes with prominence of the ventricles, cortical sulci and basal cisterns proportionately, unchanged. There are areas of decreased attenuation within the white matter tracts of the supratentorial brain, consistent with microvascular disease changes. These findings predominate in the deep periventricular frontal lobe white matter of each hemisphere. Normal basal ganglia and thalami. Normal brainstem. Normal cerebellum. There is no intracranial hemorrhage. There are no findings of an acute ischemic infarction. Note is made of rather extensive vertebral artery atheromatous calcifications particularly of the left vertebral artery, also involving the cavernous internal carotids bilaterally. Normal visualized paranasal sinuses. CT/Brain/Head without Contrast IMPRESSION: No acute intracranial pathology, mild cerebral atrophic changes showing no interval progression and not unusual in degree for the patient's age group. Note made also of very mild chronic ischemic white matter disease, with no interval change overall. Electronically Signed: Berny Norris MD at 7:58 EST Tel , Service support [phone], CC: Mary Bethea Customs Entry Writer: Signed Denise Neema Work Phone: Start: 04-22-2015 End: 04-22-2015 Bilat Scrn Digital AND CAD Comments: See Note; NOTES: [facility] Imaging Services [address] [place] [address] Verdana 4d Bilat Scrn Digital AND CAD MR#: [id number] Acct: [id number] Name: ARIS CR Rep #: [id number] : 1945 F 69 From: Juan Pablo Patel MD PCP: Ndihi Neal DO Status: REG CLI Study: Bilat Scrn Digital AND CAD Date of Exam: 04/22/15 Exam# [id number] Ordering Dr: Nidhi Neal DO MAMMOGRAPHY - BILATERAL SCREENING REASON FOR EXAM: Female, 69 years old. Routine annual screening examination. PERTINENT HISTORY: Non-contributory. TECHNIQUE: Digital examination. Mediolateral oblique (MLO) and craniocaudad (CC) views of both breasts were obtained. CAD: CAD was performed on this study. COMPARISON: Comparison is made with prior study dated May 05, 2013 and March 28, 2012. FINDINGS: Breast Composition: There are scattered areas of fibroglandular density. There are no dominant masses or suspicious calcifications. No other significant abnormalities are identified. There has been no significant change since the prior study. IMPRESSION: Stable bilateral screening mammogram. Yearly follow-up mammogram recommended. (A) ASSESSMENT CATEGORY: BIRADS Category 1: Negative. A letter regarding these results will be sent to the patient by the facility within 30 days. Approximately 10% of breast cancers are not detected by mammography. A normal mammogram should not delay biopsy of a clinically suspicious abnormality. [id number] Electronically Signed: Juan Pablo Patel MD at 11:18 EST Tel [phone], Service support [phone], CC: Nidhi Neal DO Customs Entry Writer: Signed Nidhi Neal Work Phone: Start: 02-12-2015 End: 02-12-2015 Brain/Head W/WO Contrast Comments: See Note; NOTES: [facility] Imaging Services [address] [place] [address] Verdana 4d Brain/Head W/WO Contrast MR#: [id number] Acct: [id number] Name: ARIS CR Rep #: [id number] : 1945 F 69 From: Juan Pablo Patel MD PCP: Nidhi Nela DO Status: REG CLI Study: Brain/Head W/WO Contrast Date of Exam: 02/12/15 Exam# [id number] Ordering Dr: Nidhi Neal DO STUDY: CT BRAIN WITH AND WITHOUT CONTRAST REASON FOR EXAM: Female, 69 years old. Headaches and left visual changes. RADIATION DOSAGE (If Supplied By Facility): CTDIvol = ( 58.44 ) mGy, DLP = ( 1958.15 ) mGycm TECHNIQUE: Transaxial CT imaging of the brain was performed pre and post contrast administration. The examination was performed with intravenous administration of 50CC ml of Isovue 370 contrast material. COMPARISON: None. FINDINGS: Normal soft tissue structures. Normal calvarium. There is mild cerebral atrophy with widening of the extra-axial spaces and ventricular dilatation. There are areas of decreased attenuation within the white matter tracts of the supratentorial brain, consistent with microvascular disease changes. Normal basal ganglia and thalami. Normal brainstem. Normal cerebellum. There is no intracranial hemorrhage. There are no findings of an acute ischemic infarction. There is calcification of the vertebral arteries as well as the cavernous portions of the internal carotid arteries bilaterally. Normal visualized paranasal sinuses. IMPRESSION: Chronic involutional changes of the brain. Electronically Signed: Juan Pablo Patel MD at 9:51 EST Tel [phone], Service support [phone], CC: Nidhi Neal DO Customs Entry Writer: Signed Nidhi Neal Work Phone: Start: 05-05-2013 End: 05-05-2013 Bilat Scrn Digital & CAD Comments: See Note; NOTES: [facility] Imaging Services [address] [place] [address] Breast Imaging Report MR#: [id number] Acct: [id number] Name: ARIS CR Rep #: [id number] : 1945 F 67 From: Juan Pablo Patel MD PCP: Nidhi Neal DO Status: REG CLI Exam# [id number] Ordering Dr: Nidhi Neal DO MAMMOGRAPHY - BILATERAL SCREENING REASON FOR EXAM: Female, 67 years old. Routine annual screening examination. PERTINENT HISTORY: Non-contributory. TECHNIQUE: Digital examination. Mediolateral oblique (MLO) and craniocaudad (CC) views of both breasts were obtained. CAD: CAD was performed on this study. COMPARISON: Comparison is made with prior study dated March 28, 2012 and July 27, 2010. FINDINGS: The breast composition is composed of scattered fibroglandular tissues ranging from 25% to 50% of the breast. There are no dominant masses or suspicious calcifications. No other significant abnormalities are identified. There has been no significant change since the prior study. IMPRESSION: Stable bilateral screening mammogram. Yearly follow-up recommended. (A) ASSESSMENT CATEGORY: BIRADS Category 2: Benign finding(s). A letter regarding these results will be sent to the patient by the facility within 30 days. Approximately 10% of breast cancers are not detected by mammography. A normal mammogram should not delay biopsy of a clinically suspicious abnormality. Electronically Signed: Juan Pablo Patel M.D. at 8:42 EST , Service support [phone], CC: Nidhi Neal DO Customs Entry Writer: Signed Nidhi Neal Work Phone: Start: 01-22-2013 End: 01-22-2013 Dexa Bone Density Study (HP) Comments: See Note; NOTES: [facility] Imaging Services [address] [place] [address] Bone Density Report MR#: [id number] Acct: [id number] Name: ARIS CR Rep #: [id number] : 1945 F 67 From: Juan Pablo Patel MD PCP: Nidhi Neal DO Status: REG CLI Study: Dexa Bone Density Study (HP) Date of Exam: 01/22/13 Exam# [id number] Ordering Dr: Nidhi Neal DO STUDY: DUAL ENERGY X-RAY ABSORPTIOMETRY / DXA REASON FOR EXAM: Female, 67 years old. Early menopause. TECHNIQUE: Bone Mineral Density (BMD) measurements of lumbar spine and bilateral hips were obtained. COMPARISON: Comparison is made with prior study dated August 16, 2010. FINDINGS: Lumbar Spine (L1-L4): g/cm2 (1.253) / T-score (0.6) / Z-score (2.2) Findings are suggestive of normal bone density with a low fracture risk. Left Femur Total: g/cm2 (0.987) / T-score (-0.2) / Z-score (1.1) Left Femoral Neck: g/cm2 (0.800) / T-score (-1.7) / Z-score (-0.2) Right Femur Total: g/cm2 (1.003) / T-score (0.0) / Z-score (1.2) Right Femoral Neck: g/cm2 (0.815) / T-score (-1.6) / Z-score (-0.1) The T-Scores on the most recent prior examination were: Lumbar Spine (L1-L4): There has been improvement of bone density since the previous examination. Left Femur Total: which represents an improvement of 0.9%. Right Femur Total: which represents an improvement of 3.0%. IMPRESSION: The patient is considered osteopenic as outlined below according to World Chint[place] Organization (WHO) criteria with a moderate fracture risk. There has been improvement of bone density since the previous examination. Reference Information: The T-score is the number of standard deviations above or below the standard which is normal for young adults at their peak bone mineral density. The World Health Organization (WHO) interprets the T-scores as follows: Above -1 Normal bone density Between -1 and -2.5 Osteopenia Equal to / or below -2.5 Osteoporosis As a practical clinical guideline, osteopenia may be graded as follows: Mild -1 through -1.5 Moderate -1.6 through -2.0 Severe -2.1 through -2.4 The Z-score is the number of standard deviations above or below age-matched controls. A Z-score of less than -1.5 would be considered abnormal. References: 1. NIH Osteoporosis and Related Bone Diseases http://www.osteo.org 2. International Society for Clinical Densitometry http://www.iscd.org 3. National Osteoporosis Foundation http://www.nof.org Signed: Juan Pablo Patel M.D. January 22, 2013 at 12:56:59 PM EST [phone] Electronically Signed GP/GP If you are the referring physician and would like to consult with the radiologist who provided this interpretation, please contact Juan Pablo Patel M.D. at [phone]. If this radiologist is unavailable, you will be directed to another radiologist to assist. If you are a patient with a question regarding this report, please contact your referring physician directly. Professional Interpretation Provided By: [employer], Phone , These documents contain legally protected and confidential health information intended only for the use of the individual or entity named above. If you are not the intended recipient, you are hereby notified that any disclosure, copying, distribution, or other use of these documents is strictly prohibited. If you have received this information in error, please notify the sender immediately and arrange for the return or destruction of these documents. CC: Nidhi Neal DO Customs Entry Writer: Signed Nidhi Neal Work Phone: End: 11-27-2016 Cholecystectomy Cholecystectomy Sherrill Payton [facility] NURSE PRACTITIONER End: 11-27-2016 H/O: section Sherrill Zayasfreida NAVARRO End: 11-27-2016 History of appendectomy Sherrill Fito NAVARRO Plan of Treatment Date Care Activity Detail Author Start: 05-23-2023 [facility] Start: 08-01-2022 25 hydroxy includes fractions if performed [facility]; [facility] Work Phone: Start: 08-01-2022 Comprehensive metabo lic panel [facility]; [facility] Work Phone: Start: 08-01-2022 Lipid panel [facility]; [facility] Work Phone: Start: 08-01-2022 Procedure Education [facility]; [facility] Work Phone: Start: 08-01-2022 Provider Instruction s for Treatment [facility]; [facility] Work Phone: Start: 08-01-2022 Assay of thyroid stimulating hormone tsh [facility]; [facility] Work Phone: Start: 06-07-2022 Procedure Education [facility]; [facility] Work Phone: Start: 06-07-2022 Provider Instruction s for Treatment [facility]; [facility] Work Phone: Start: 06-04-2022 Troponin I measurement [facility] Start: 03-17-2022 Patient Education [facility]pr [facility]; [facility] Work Phone: Start: 03-17-2022 Procedure Education [facility]; [facility] Work Phone: Start: 01-31-2022 Comprehensive metabo lic panel [facility] Medicine; [facility] Work Phone: Start: 01-31-2022 Procedure Education [facility]; [facility] Work Phone: Start: 01-31-2022 Provider Instruction s for Treatment [facility]; [facility] Work Phone: Start: 01-31-2022 Blood count complete auto&auto difrntl wbc [facility]; [facility] Work Phone: Start: 09-23-2021 Procedure Education [facility]; [facility] Work Phone: Start: 09-23-2021 Provider Instruction s for Treatment [facility]; [facility] Work Phone: Start: 04-05-2021 Procedure Education [facility]; [facility] Work Phone: Start: 04-05-2021 Provider Instruction s for Treatment [facility]; [facility] Work Phone: Start: 04-05-2021 Lipid panel [facility]; [facility] Work Phone: Start: 04-05-2021 Assay of thyroid stimulating hormone tsh [facility]; [facility] Work Phone: Start: 04-05-2021 Blood count complete auto&auto difrntl wbc [facility]; [facility] Work Phone: Start: 04-05-2021 Comprehensive metabo lic panel [facility]; [facility] Work Phone: Start: 12-24-2020 Procedure Education [facility]; [facility] Work Phone: Start: 12-24-2020 Provider Instruction s for Treatment [facility]; [facility] Work Phone: Start: 09-17-2020 Procedure Education [facility]; [facility] Work Phone: Start: 09-17-2020 Provider Instruction s for Treatment [facility]; [facility] Work Phone: Start: 08-24-2020 Comprehensive metabo lic panel [facility]; [facility] Work Phone: Start: 08-24-2020 Lipid panel [facility]; [facility] Work Phone: Start: 08-06-2020 Comprehensive metabo lic panel [facility]; [facility] Work Phone: Start: 08-06-2020 Lipid panel [facility]; [facility] Work Phone: Start: 08-06-2020 25 hydroxy includes fractions if performed [facility]; [facility] Work Phone: Start: 08-06-2020 CBC, PLATELETS & MAN UAL DIFF (53565) [facility]; [facility] Work Phone: Start: 2020 Procedure Education [facility]; [facility] Work Phone: Start: 2020 Provider Instruction s for Treatment [facility]; [facility] Work Phone: Start: 01-23-2020 Procedure Education [facility] Work Phone: Start: 01-23-2020 Provider Instruction s for Treatment [facility] Work Phone: Start: 01-06-2020 Urine albumin quantitative [facility] Work Phone: Start: 01-06-2020 Comprehensive metabo lic panel Metabolic Panel, Comprehensive (27847) [facility] Work Phone: Start: 01-06-2020 Lipid panel LIPID PANEL ([id number]) [facility] Work Phone: Start: 07-22-2019 Procedure Education [facility] Work Phone: Start: 07-22-2019 Provider Instruction s for Treatment [facility] Work Phone: Start: 04-07-2019 Patient Education [facility] Work Phone: Start: 01-24-2019 Provider Instruction s for Treatment [facility] Work Phone: Start: 12-09-2018 Urine albumin quantitative [facility] Work Phone: Start: 12-09-2018 Comprehensive metabo lic panel [facility] Work Phone: Start: 12-09-2018 Blood count manual c ell count each [facility] Work Phone: Start: 09-06-2018 Procedure Education [facility] Work Phone: Start: 09-06-2018 Provider Instruction s for Treatment [facility] Work Phone: Start: 09-06-2018 Comprehensive metabo lic panel Metabolic Panel, Comprehensive ([id number]) [facility] Work Phone: Start: 09-06-2018 Urine albumin quantitative MICROALBUMIN: CREATININE RATIO (02569) AND (04532) [facility] Work Phone: Start: 09-06-2018 25 hydroxy includes fractions if performed CALCIFEDIOL (28981) [facility] Work Phone: Start: 09-06-2018 Blood count manual c ell count each CBC WITH MANUAL DIFF (27529) [facility] Work Phone: Start: 09-06-2018 Lipid panel [facility] Work Phone: Start: 05-10-2018 Procedure Education [facility] Work Phone: Start: 05-10-2018 Provider Instruction s for Treatment [facility] Work Phone: Start: 05-10-2018 25 hydroxy includes fractions if performed CALCIFEDIOL (03622) [facility] Work Phone: Start: 05-10-2018 Comprehensive metabo lic panel [facility] Work Phone: Start: 05-10-2018 Assay of thyroid stimulating hormone tsh [facility]; [facility] Work Phone: Start: 05-10-2018 Thyrotropin Qn TSH ([id number]) [facility] Work Phone: Start: 05-10-2018 Blood count complete auto&auto difrntl wbc [facility] Work Phone: Start: 04-08-2018 25 hydroxy includes fractions if performed CALCIFEDIOL (25860) [facility] Work Phone: Start: 04-08-2018 Urnls dip stick/tabl et reagent auto microscopy URINALYSIS, W/ MICRO (62481) [facility] Work Phone: Start: 04-08-2018 Urine albumin quantitative MICROALBUMIN: CREATININE RATIO (15917) AND (67489) [facility] Work Phone: Start: 04-08-2018 Thyrotropin Qn TSH (46909) [facility] Work Phone: Start: 04-08-2018 Blood count complete auto&auto difrntl wbc CBC, Platelets & Auto Diff (26445) [facility] Work Phone: Start: 04-08-2018 Comprehensive metabo lic panel Metabolic Panel, Comprehensive (27144) [facility] Work Phone: Start: 04-08-2018 Lipid panel Lipid Panel (12590) [facility] Work Phone: Start: 01-15-2018 Procedure Education [facility] Work Phone: Start: 01-15-2018 Provider Instruction s for Treatment [facility] Work Phone: Start: 12-18-2017 Procedure Education [facility] Work Phone: Start: 12-18-2017 Provider Instruction s for Treatment [facility] Work Phone: Start: 08-07-2017 Procedure Education [facility] Work Phone: Start: 08-07-2017 Provider Instruction s for Treatment [facility] Work Phone: Start: 06-12-2017 Procedure Education [facility] Work Phone: Start: 06-12-2017 Provider Instruction s for Treatment [facility] Work Phone: Start: 04-06-2017 Procedure Education [facility] Work Phone: Start: 04-06-2017 Provider Instruction s for Treatment [facility] Work Phone: Start: 11-27-2016 Procedure Education [facility] Work Phone: Start: 11-27-2016 Provider Instruction s for Treatment [facility] Work Phone: Start: 11-27-2016 25 hydroxy includes fractions if performed [facility] Work Phone: Comment on above: Mar 2016 Start: 11-27-2016 Urine albumin quantitative [facility] Work Phone: Comment on above: mar 2017 Start: 11-27-2016 Urinalysis qual/semiquant except immunoassays [facility] Work Phone: Comment on above: Mar 2017 Start: 11-27-2016 Blood count complete auto&auto difrntl wbc [facility] Work Phone: Comment on above: mar 2016 Start: 11-27-2016 Comprehensive metabo lic panel [facility] Work Phone: Comment on above: Mar 2016 Start: 11-27-2016 Lipid panel [facility] Work Phone: Comment on above: Mar 2017 Start: 08-02-2016 Procedure Education [facility] Work Phone: Start: 08-02-2016 Provider Instruction s for Treatment [facility] Work Phone: Start: 08-02-2016 Lipid panel [facility] Work Phone: Comment on above: Fasting Nov 2016 Start: 08-02-2016 Urine albumin quantitative [facility] Work Phone: Comment on above: Nov 2016 Start: 08-02-2016 Urinalysis qual/semiquant except immunoassays [facility] Work Phone: Comment on above: Nov 2016 Start: 08-02-2016 Comprehensive metabo lic panel [facility] Work Phone: Comment on above: Nov 2016 Start: 08-02-2016 Assay of thyroid stimulating hormone tsh [facility]; [facility] Work Phone: Start: 08-02-2016 Thyrotropin Qn TSH ([id number]) [facility] Work Phone: Comment on above: Nov 2016 Start: 08-02-2016 Blood count complete auto&auto difrntl wbc [facility] Work Phone: Comment on above: Nov 2016 Start: 04-12-2016 Provider Instruction s for Treatment [facility] Work Phone: Start: 04-12-2016 Comprehensive metabo lic panel [facility] Work Phone: Comment on above: get around June 14 Start: 04-12-2016 Lipid panel [facility] Work Phone: Comment on above: get fasting lipid Ar ound June 14 Start: 03-22-2016 Procedure Education [facility] Work Phone: Start: 03-22-2016 Provider Instruction s for Treatment [facility] Work Phone: Start: 03-15-2016 Procedure Education [facility] Work Phone: Start: 03-15-2016 Provider Instruction s for Treatment [facility] Work Phone: Start: 04-29-2015 Culture bct isol&prs mptv id isolate ea urine [facility] Work Phone: Start: 04-29-2015 Urinalysis qual/semiquant except immunoassays [facility] Work Phone: Start: 04-05-2015 Cobalamin (Vitamin B 12) mass conc VITAMIN B-12 (CYANOCOBALAMIN) (59680) [facility] Work Phone: Start: 04-05-2015 Cyanocobalamin vitam in b-12 [facility]; [facility] Work Phone: Start: 04-05-2015 Assay of thyroid stimulating hormone tsh [facility]; [facility] Work Phone: Start: 04-05-2015 Thyrotropin Qn TSH (70506) [facility] Work Phone: Start: 04-05-2015 25 hydroxy includes fractions if performed [facility] Work Phone: Start: 04-05-2015 Urnls dip stick/tabl et reagent auto microscopy [facility] Work Phone: Start: 04-05-2015 Blood count complete auto&auto difrntl wbc [facility] Work Phone: Start: 04-05-2015 Comprehensive metabo lic panel [facility] Work Phone: Start: 04-05-2015 Lipid panel [facility] Work Phone: Start: 04-05-2015 Procedure Education [facility] Work Phone: Start: 02-12-2015 Procedure Education [facility] Work Phone: Start: 02-12-2015 Basic metabolic pane l calcium total [facility] Work Phone: Comment on above: stat Start: 11-06-2014 Procedure Education [facility] Work Phone: Start: 11-06-2014 Urnls dip stick/tabl et rgnt non-auto w/o micrscp [facility] Work Phone: Start: 10-20-2013 Provider Instruction s for Treatment [facility] Work Phone: Start: 05-27-2013 Provider Instruction s for Treatment [facility] Work Phone: Start: 03-14-2013 Culture bacterial quanttative colony count urine [facility] Work Phone: Comment on above: repeat 7 days after atb Start: 03-12-2013 Patient Education [facility] Work Phone: Start: 01-22-2013 Culture bacterial quanttative colony count urine [facility] Work Phone: Start: 11-26-2012 Provider Instruction s for Treatment [facility] Work Phone: Start: 11-26-2012 Lipid panel [facility] Work Phone: Start: 11-26-2012 Comprehensive metabo lic panel [facility] Work Phone: Start: 11-26-2012 Assay of thyroid stimulating hormone tsh [facility]; [facility] Work Phone: Start: 11-26-2012 Thyrotropin Qn TSH (68279) [facility] Work Phone: Start: 11-26-2012 25 hydroxy includes fractions if performed [facility] Work Phone: Start: 11-26-2012 Urnls dip stick/tabl et reagent auto microscopy [facility] Work Phone: Start: 06-14-2012 Provider Instruction s for Treatment [facility] Work Phone: Start: 05-24-2012 Provider Instruction s for Treatment [facility] Work Phone: Start: 01-17-2012 Lipid panel [facility] Work Phone: Start: 01-17-2012 Comprehensive metabo lic panel [facility] Work Phone: Start: 10-10-2011 Provider Instruction s for Treatment [facility] Work Phone: Start: 07-03-2011 Provider Instruction s for Treatment [facility] Work Phone: Start: 06-29-2011 Urnls dip stick/tabl et reagent auto microscopy [facility] Work Phone: Start: 06-29-2011 Comprehensive metabo lic panel [facility] Work Phone: Start: 06-29-2011 Lipid panel [facility] Work Phone: Start: 06-29-2011 Blood count manual c ell count each [facility] Work Phone: Start: 07-27-2010 Assay of thyroid stimulating hormone tsh [facility]; [facility] Work Phone: Start: 07-27-2010 Thyrotropin Qn TSH (17810) [facility] Work Phone: Start: 07-27-2010 25 hydroxy includes fractions if performed [facility] Work Phone: Start: 07-27-2010 Lipid panel [facility] Work Phone: Start: 07-27-2010 Comprehensive metabo lic panel [facility] Work Phone: Start: 07-15-2010 Hepatic function panel [facility] Work Phone: Start: 10-06-2009 Fibrin dgradj produc ts d-dimer quantitative [facility] Work Phone: Start: 10-06-2009 Blood count manual c ell count each [facility] Work Phone: Start: 10-06-2009 Hepatic function panel [facility] Work Phone: Start: 10-06-2009 Comprehensive metabo lic panel [facility] Work Phone: Start: 10-04-2009 Provider Instruction s for Treatment [facility] Work Phone: Start: 03-24-2009 Lipid panel [facility] Work Phone: Start: 03-24-2009 Urnls dip stick/tabl et reagent auto microscopy [facility] Work Phone: Start: 03-24-2009 Assay of thyroid stimulating hormone tsh [facility]; [facility] Work Phone: Start: 03-24-2009 Thyrotropin Qn TSH ([id number]) [facility] Work Phone: Start: 03-24-2009 Comprehensive metabo lic panel [facility] Work Phone: Start: 03-24-2009 Blood count manual c ell count each [facility] Work Phone: Start: 11-30-2008 Provider Instruction s for Treatment [facility] Work Phone: Start: 11-27-2008 Provider Instruction s for Treatment [facility] Work Phone: Start: 09-23-2008 Urnls dip stick/tabl et rgnt auto w/o microscopy [facility] Work Phone: Start: 09-23-2008 Assay of thyroid stimulating hormone tsh [facility]; [facility] Work Phone: Start: 09-23-2008 Thyrotropin Qn TSH ([id number]) [facility] Work Phone: Start: 09-23-2008 Comprehensive metabo lic panel [facility] Work Phone: Start: 09-23-2008 Blood count manual c ell count each [facility] Work Phone: Start: 09-23-2008 Lipid panel [facility] Work Phone: Start: 06-09-2008 Provider Instruction s for Treatment [facility] Work Phone: Start: 02-05-2008 Provider Instruction s for Treatment [facility] Work Phone: Start: 10-18-2007 Lipid panel [facility] Work Phone: Start: 10-18-2007 Hepatic function panel [facility] Work Phone: Start: 04-05-2007 Lipid panel [facility] Work Phone: Start: 04-05-2007 Hepatic function panel [facility] Work Phone: Start: 12-19-2006 Hepatic function panel [facility] Work Phone: Start: 12-19-2006 Lipid panel [facility] Work Phone: Start: 12-19-2006 Cytp cerv/vag auto t hin layer prep mnl screen [facility] Work Phone: Start: 12-19-2006 Provider Instruction s for Treatment [facility] Work Phone: Start: 04-19-2006 Provider Instruction s for Treatment [facility] Work Phone: Patient referral [facility] Work Phone: [facility] Work [facility]: [facility] Work Phone: [facility] Work Phone[facility] Work Phone: [facility] Work Phone[facility] Work Phone: [facility] Work Phone: [facility] Work Phone: [facility] Work Phone: [facility] Work Phone: [facility] Work Phone: [facility] Work Phone: [facility] Work Phone: [facility] Phone: [facility]: [facility]: [facility]: [facility]: [facility]: [facility]: [facility] Work [facility]: [facility]: [facility] Work Phone: [facility] Work [facility]: [facility] Work [facility]: [facility]: [facility] Work Phone: [facility] Work Phone: [facility] Work Phone: [facility] Work Phone: [facility] Work Phone: [facility] Work Phone: [facility] Work Phone: [facility] Work Phone[facility] Work Phone[facility] Work Phone: [facility] Work Phone: [facility]; [facility] Work Phone: [facility]; [facility] Work Phone: [facility]; [facility] Work Phone: [facility]; [facility] Work Phone: [facility]; [facility] Work Phone: Immunizations Immunization Date Immunization Notes Care Provider [facility] 03-05-2021 COVID-Pfizer (30 MCG/0.3 ML) 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 Work Phone: [facility]; [facility] Work Phone: 07-24-2020 COVID-19 (Pfizer) Mary Phanagustin DIRECTOR HOUSEKEEPING Work Phone: [facility]; [facility] Work Phone: 07-03-2020 COVID-19 (Pfizer) Mary Phanagustin DIRECTOR HOUSEKEEPING Work Phone: [facility]; [facility] Work Phone: Payers Date Payer Category Payer Self-pay [id number] 2011 Medicare [id number] 1945 Unknown [id number] Private Health Insurance [id number] Private Health Insurance [id number] Unknown Unknown [id number] Unknown [id number] [id number] Unknown [id number] Unknown [id number] Unknown [id number] [id number] Social History Date Type Detail Facility Caffeine Use Never smoker [facility] Work Phone: Comment on above: 1 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 [facility] Work Phone: Comment on above: 07/03/11 Never smoker. [facility]; [facility] Work Phone: Start: 11-15-2021 End: 05-23-2023 Tobacco smoking status LAIS Unknown if ever smoked [facility] Start: 1945 Sex Assigned At Female W [facility] Mental Status Date Assessment Result Facility 06-04-2022 Cognitive function Voice/Name [facility] Work Phone: Clinical Notes Note Date & Type Note Facility Evaluation note No assessment information availa ble [facility] Work Phone: Instructions Name Patient Instructions Indication:Nonsmoker Start:26-May-19 Instruction Type:Provider Instructions for Treatment How to Access Health Information Online using Patient Portal and [employer] Apps Indication:Nonsmoker Start:26-May-19 Instruction Type:Patient Education How to access health information online Indication:Nonsmoker Start:23-Jan-20 Instruction Type:Patient Education How to access health information online - Detail Indication:Nonsmoker Start:23-Jan-20 Instruction Type:Patient Education Patient Instructions Indication:BMI 30.0-30.9,adult Start:23-Jan-20 Instruction Type:Provider Instructions for Treatment How to access health information online Indication:Nonsmoker Start:22-Jul-19 Instruction Type:Patient Education How to access health information online - Detail Indication:Nonsmoker Start:22-Jul-19 Instruction Type:Patient Education Patient Instructions Indication:BMI 29.0-29.9,adult Start:22-Jul-19 Instruction Type:Provider Instructions for Treatment How to access health information online Indication:BMI 29.0-29.9,adult Start: 0 Instruction Type:Patient Education How to access health information online - Detail Indication:BMI 29.0-29.9,adult Start: 0 Instruction Type:Patient Education Patient Instructions Indication:Hand injury, left, initial encounter Start: 0 Instruction Type:Provider Instructions for Treatment How to access health information online - Detail Indication:Nonsmoker Start: Instruction Type:Patient Education How to access health information online Indication:Nonsmoker Start: Instruction Type:Patient Education Patient Instructions Indication:Alzheimer's dementia Start: Instruction Type:Provider Instructions for Treatment How to access health information online Indication:Nonsmoker Start: Instruction Type:Patient Education How to access health information online - Detail Indication:Nonsmoker Start: Instruction Type:Patient Education Patient Instructions Indication:BMI 28.0-28.9,adult Start: Instruction Type:Provider Instructions for Treatment How to access health information online Indication:Nonsmoker Start:16-Jan-20 Instruction Type:Patient Education How to access health information online - Detail Indication:Nonsmoker Start:16-Jan-20 Instruction Type:Patient Education Patient Instructions Indication:Nonsmoker Start:16-Jan-20 Instruction Type:Provider Instructions for Treatment How to access health information online Indication:Nonsmoker Start:19-Dec-19 Instruction Type:Patient Education How to access health information online - Detail Indication:Nonsmoker Start:19-Dec-19 Instruction Type:Patient Education Patient Instructions Indication:BMI 28.0-28.9,adult Start:19-Dec-19 Instruction Type:Provider Instructions for Treatment How to access health information online Indication:Hypercholesteremia Start: Instruction Type:Patient Education How to access health information online - Detail Indication:Hypercholesteremia Start: Instruction Type:Patient Education Patient Instructions Indication:Hypercholesteremia Start: 8 Instruction Type:Provider Instructions for Treatment How to access health information online Indication:Essential hypertension Start:13-Jun-19 Instruction Type:Patient Education How to access health information online - Detail Indication:Essential hypertension Start:13-Jun-19 Instruction Type:Patient Education Patient Instructions Indication:Essential hypertension Start:13-Jun-19 Instruction Type:Provider Instructions for Treatment How to access health information online Indication:Essential hypertension Start: Instruction Type:Patient Education How to access health information online - Detail Indication:Essential hypertension Start: Instruction Type:Patient Education Patient Instructions Indication:Encounter for screening mammogram for breast cancer (Renamed from Encounter for screening mammogram for malignant neoplasm of breast) Start: Instruction Type:Provider Instructions for Treatment Patient Instructions Indication:Vitamin D deficiency Start:28-Nov-19 Instruction Type:Provider Instructions for Treatment DISCONTINUED - LIPID PANEL (39810) Indication:Atherosclerotic plaque Start:28-Nov-19 Instruction Type:Patient Education DISCONTINUED - LIPID PANEL ([id number]) Indication:Other and unspecified hyperlipidemia Start:28-Nov-19 Instruction Type:Patient Education DISCONTINUED - METABOLIC PANEL, COMPREHENSIVE ([id number]) Indication:Essential hypertension Start:28-Nov-19 Instruction Type:Patient Education How to access health information online Indication:Essential hypertension Start:28-Nov-19 Instruction Type:Patient Education How to access health information online - Detail Indication:Essential hypertension Start:28-Nov-19 Instruction Type:Patient Education Patient Instructions Indication:Essential hypertension Start:28-Nov-19 Instruction Type:Provider Instructions for Treatment How to access health information online Indication:Neck pain Start:03-Aug-19 Instruction Type:Patient Education How to access health information online - Detail Indication:Neck pain Start:03-Aug-19 Instruction Type:Patient Education Patient Instructions Indication:BMI 27.0-27.9,adult Start:03-Aug-19 Instruction Type:Provider Instructions for Treatment Patient Instructions Indication:Carotid stenosis, symptomatic w/o infarct, right Start: 7 Instruction Type:Provider Instructions for Treatment How to access health information online Indication:UTI symptoms Start:22-Mar-19 Instruction Type:Patient Education How to access health information online - Detail Indication:UTI symptoms Start:22-Mar-19 Instruction Type:Patient Education Patient Instructions Indication:UTI symptoms Start:22-Mar-19 Instruction Type:Provider Instructions for Treatment How to access health information online Indication:Essential hypertension Start:15-Mar-19 Instruction Type:Patient Education How to access health information online - Detail Indication:Essential hypertension Start:15-Mar-19 Instruction Type:Patient Education Patient Instructions Indication:Essential hypertension Start:15-Mar-19 Instruction Type:Provider Instructions for Treatment How to access health information online Indication:Right sided abdominal pain Start: Instruction Type:Patient Education How to access health information online - Detail Indication:Right sided abdominal pain Start: 6 Instruction Type:Patient Education Patient Instructions Indication:Right sided abdominal pain Start: Instruction Type:Provider Instructions for Treatment How to access health information online Indication:Headache Start:13-Feb-20 Instruction Type:Patient Education How to access health information online - Detail Indication:Headache Start:13-Feb-20 Instruction Type:Patient Education Patient Instructions Indication:Headache Start:13-Feb-20 Instruction Type:Provider Instructions for Treatment How to access health information online Indication:Abdominal pain Start: 5 Instruction Type:Patient Education How to access health information online - Detail Indication:Abdominal pain Start: 5 Instruction Type:Patient Education Patient Instructions Indication:Abdominal pain Start: 5 Instruction Type:Provider Instructions for Treatment Patient Instructions Indication:Chronic cough Start:28-May-19 14 Instruction Type:Provider Instructions for Treatment Patient Instructions Indication:Essential hypertension Start: 4 Instruction Type:Provider Instructions for Treatment Patient Instructions Indication:Essential hypertension Start:27-Nov-19 13 Instruction Type:Provider Instructions for Treatment Patient Instructions Indication:Essential hypertension Start:17-Jan-20 12 Instruction Type:Provider Instructions for Treatment [facility]; [facility] Work Phone: Instructions* Name Dates Details Patient Instructions Indication:Nonsmoker Start:25-May-2020 Instruction Type:Provider Instructions for Treatment How to Access Health Informa tion Online using Patient Portal and [employer]rd [employer] Apps Indication:Nonsmoker Start:25-May-2020 Instruction Type:Patient Education How to access health informa tion online Indication:Nonsmoker Start:23-Jan-2020 Instruction Type:Patient Education How to access health informa tion online - Detail Indication:Nonsmoker Start:23-Jan-2020 Instruction Type:Patient Education Patient Instructions Indication:BMI 30.0-30.9,adult Start:23-Jan-2020 Instruction Type:Provider Instructions for Treatment How to access health informa tion online Indication:Nonsmoker Start:22-Jul-2019 Instruction Type:Patient Education How to access health informa tion online - Detail Indication:Nonsmoker Start:22-Jul-2019 Instruction Type:Patient Education Patient Instructions Indication:BMI 29.0-29.9,adult Start:22-Jul-2019 Instruction Type:Provider Instructions for Treatment How to access health informa tion online Indication:BMI 29.0-29.9,adult Start:07-Apr-2019 Instruction Type:Patient Education How to access health informa tion online - Detail Indication:BMI 29.0-29.9,adult Start:07-Apr-2019 Instruction Type:Patient Education Patient Instructions Indication:Hand injury, left, initial encounter Start:07-Apr-2019 Instruction Type:Provider Instructions for Treatment How to access health informa tion online - Detail Indication:Nonsmoker Start:06-Sep-2018 Instruction Type:Patient Education How to access health informa tion online Indication:Nonsmoker Start:06-Sep-2018 Instruction Type:Patient Education Patient Instructions Indication:Alzheimer's dementia Start:06-Sep-2018 Instruction Type:Provider Instructions for Treatment How to access health informa tion online Indication:Nonsmoker Start:10-May-2018 Instruction Type:Patient Education How to access health informa tion online - Detail Indication:Nonsmoker Start:10-May-2018 Instruction Type:Patient Education Patient Instructions Indication:BMI 28.0-28.9,adult Start:10-May-2018 Instruction Type:Provider Instructions for Treatment How to access health informa tion online Indication:Nonsmoker Start:15-Jan-2018 Instruction Type:Patient Education How to access health informa tion online - Detail Indication:Nonsmoker Start:15-Jan-2018 Instruction Type:Patient Education Patient Instructions Indication:Nonsmoker Start:15-Jan-2018 Instruction Type:Provider Instructions for Treatment How to access health informa tion online Indication:Nonsmoker Start:18-Dec-2017 Instruction Type:Patient Education How to access health informa tion online - Detail Indication:Nonsmoker Start:18-Dec-2017 Instruction Type:Patient Education Patient Instructions Indication:BMI 28.0-28.9,adult Start:18-Dec-2017 Instruction Type:Provider Instructions for Treatment How to access health informa tion online Indication:Hypercholesteremia Start:07-Aug-2017 Instruction Type:Patient Education How to access health informa tion online - Detail Indication:Hypercholesteremia Start:07-Aug-2017 Instruction Type:Patient Education Patient Instructions Indication:Hypercholesteremia Start:07-Aug-2017 Instruction Type:Provider Instructions for Treatment How to access health informa tion online Indication:Essential hypertension Start:12-Jun-2017 Instruction Type:Patient Education How to access health informa tion online - Detail Indication:Essential hypertension Start:12-Jun-2017 Instruction Type:Patient Education Patient Instructions Indication:Essential hypertension Start:12-Jun-2017 Instruction Type:Provider Instructions for Treatment How to access health informa tion online Indication:Essential hypertension Start:06-Apr-2017 Instruction Type:Patient Education How to access health informa tion online - Detail Indication:Essential hypertension Start:06-Apr-2017 Instruction Type:Patient Education Patient Instructions Indication:Encounter for screening mammogram for breast cancer (Renamed from Encounter for screening mammogram for malignant neoplasm of breast) Start:06-Apr-2017 Instruction Type:Provider Instructions for Treatment Patient Instructions Indication:Vitamin D deficiency Start:27-Nov-2016 Instruction Type:Provider Instructions for Treatment DISCONTINUED - LIPID PANEL ( [id number]) Indication:Atherosclerotic plaque Start:27-Nov-2016 Instruction Type:Patient Education DISCONTINUED - LIPID PANEL ( [id number]) Indication:Other and unspecified hyperlipidemia Start:27-Nov-2016 Instruction Type:Patient Education DISCONTINUED - METABOLIC STRAUSS EL, COMPREHENSIVE ([id number]) Indication:Essential hypertension Start:27-Nov-2016 Instruction Type:Patient Education How to access health informa tion online Indication:Essential hypertension Start:27-Nov-2016 Instruction Type:Patient Education How to access health informa tion online - Detail Indication:Essential hypertension Start:27-Nov-2016 Instruction Type:Patient Education Patient Instructions Indication:Essential hypertension Start:27-Nov-2016 Instruction Type:Provider Instructions for Treatment How to access health informa tion online Indication:Neck pain Start:02-Aug-2016 Instruction Type:Patient Education How to access health informa tion online - Detail Indication:Neck pain Start:02-Aug-2016 Instruction Type:Patient Education Patient Instructions Indication:BMI 27.0-27.9,adult Start:02-Aug-2016 Instruction Type:Provider Instructions for Treatment Patient Instructions Indication:Carotid stenosis, symptomatic w/o infarct, right Start:12-Apr-2016 Instruction Type:Provider Instructions for Treatment How to access health informa tion online Indication:UTI symptoms Start:22-Mar-2016 Instruction Type:Patient Education How to access health informa tion online - Detail Indication:UTI symptoms Start:22-Mar-2016 Instruction Type:Patient Education Patient Instructions Indication:UTI symptoms Start:22-Mar-2016 Instruction Type:Provider Instructions for Treatment How to access health informa tion online Indication:Essential hypertension Start:15-Mar-2016 Instruction Type:Patient Education How to access health informa tion online - Detail Indication:Essential hypertension Start:15-Mar-2016 Instruction Type:Patient Education Patient Instructions Indication:Essential hypertension Start:15-Mar-2016 Instruction Type:Provider Instructions for Treatment How to access health informa tion online Indication:Right sided abdominal pain Start:05-Apr-2015 Instruction Type:Patient Education How to access health informa tion online - Detail Indication:Right sided abdominal pain Start:05-Apr-2015 Instruction Type:Patient Education Patient Instructions Indication:Right sided abdominal pain Start:05-Apr-2015 Instruction Type:Provider Instructions for Treatment How to access health informa tion online Indication:Headache Start:12-Feb-2015 Instruction Type:Patient Education How to access health informa tion online - Detail Indication:Headache Start:12-Feb-2015 Instruction Type:Patient Education Patient Instructions Indication:Headache Start:12-Feb-2015 Instruction Type:Provider Instructions for Treatment How to access health informa tion online Indication:Abdominal pain Start:06-Nov-2014 Instruction Type:Patient Education How to access health informa tion online - Detail Indication:Abdominal pain Start:06-Nov-2014 Instruction Type:Patient Education Patient Instructions Indication:Abdominal pain Start:06-Nov-2014 Instruction Type:Provider Instructions for Treatment Patient Instructions Indication:Chronic cough Start:27-May-2013 Instruction Type:Provider Instructions for Treatment Patient Instructions Indication:Essential hypertension Start:12-Mar-2013 Instruction Type:Provider Instructions for Treatment Patient Instructions Indication:Essential hypertension Start:26-Nov-2012 Instruction Type:Provider Instructions for Treatment Patient Instructions Indication:Essential hypertension Start:17-Jan-2012 Instruction Type:Provider Instructions for Treatment [facility]; [facility] Work Phone: Instructions* Name Dates Details Patient Instructions Indication:Nonsmoker Start:25-May-2020 Instruction Type:Provider Instructions for Treatment How to Access Health Informa tion Online using Patient Portal and [employer]rd [employer] Apps Indication:Nonsmoker Start:25-May-2020 Instruction Type:Patient Education How to access health informa tion online Indication:Nonsmoker Start:23-Jan-2020 Instruction Type:Patient Education How to access health informa tion online - Detail Indication:Nonsmoker Start:23-Jan-2020 Instruction Type:Patient Education Patient Instructions Indication:BMI 30.0-30.9,adult Start:23-Jan-2020 Instruction Type:Provider Instructions for Treatment How to access health informa tion online Indication:Nonsmoker Start:22-Jul-2019 Instruction Type:Patient Education How to access health informa tion online - Detail Indication:Nonsmoker Start:22-Jul-2019 Instruction Type:Patient Education Patient Instructions Indication:BMI 29.0-29.9,adult Start:22-Jul-2019 Instruction Type:Provider Instructions for Treatment How to access health informa tion online Indication:BMI 29.0-29.9,adult Start:07-Apr-2019 Instruction Type:Patient Education How to access health informa tion online - Detail Indication:BMI 29.0-29.9,adult Start:07-Apr-2019 Instruction Type:Patient Education Patient Instructions Indication:Hand injury, left, initial encounter Start:07-Apr-2019 Instruction Type:Provider Instructions for Treatment How to access health informa tion online - Detail Indication:Nonsmoker Start:06-Sep-2018 Instruction Type:Patient Education How to access health informa tion online Indication:Nonsmoker Start:06-Sep-2018 Instruction Type:Patient Education Patient Instructions Indication:Alzheimer's dementia Start:06-Sep-2018 Instruction Type:Provider Instructions for Treatment How to access health informa tion online Indication:Nonsmoker Start:10-May-2018 Instruction Type:Patient Education How to access health informa tion online - Detail Indication:Nonsmoker Start:10-May-2018 Instruction Type:Patient Education Patient Instructions Indication:BMI 28.0-28.9,adult Start:10-May-2018 Instruction Type:Provider Instructions for Treatment How to access health informa tion online Indication:Nonsmoker Start:15-Jan-2018 Instruction Type:Patient Education How to access health informa tion online - Detail Indication:Nonsmoker Start:15-Jan-2018 Instruction Type:Patient Education Patient Instructions Indication:Nonsmoker Start:15-Jan-2018 Instruction Type:Provider Instructions for Treatment How to access health informa tion online Indication:Nonsmoker Start:18-Dec-2017 Instruction Type:Patient Education How to access health informa tion online - Detail Indication:Nonsmoker Start:18-Dec-2017 Instruction Type:Patient Education Patient Instructions Indication:BMI 28.0-28.9,adult Start:18-Dec-2017 Instruction Type:Provider Instructions for Treatment How to access health informa tion online Indication:Hypercholesteremia Start:07-Aug-2017 Instruction Type:Patient Education How to access health informa tion online - Detail Indication:Hypercholesteremia Start:07-Aug-2017 Instruction Type:Patient Education Patient Instructions Indication:Hypercholesteremia Start:07-Aug-2017 Instruction Type:Provider Instructions for Treatment How to access health informa tion online Indication:Essential hypertension Start:12-Jun-2017 Instruction Type:Patient Education How to access health informa tion online - Detail Indication:Essential hypertension Start:12-Jun-2017 Instruction Type:Patient Education Patient Instructions Indication:Essential hypertension Start:12-Jun-2017 Instruction Type:Provider Instructions for Treatment How to access health informa tion online Indication:Essential hypertension Start:06-Apr-2017 Instruction Type:Patient Education How to access health informa tion online - Detail Indication:Essential hypertension Start:06-Apr-2017 Instruction Type:Patient Education Patient Instructions Indication:Encounter for screening mammogram for breast cancer (Renamed from Encounter for screening mammogram for malignant neoplasm of breast) Start:06-Apr-2017 Instruction Type:Provider Instructions for Treatment Patient Instructions Indication:Vitamin D deficiency Start:27-Nov-2016 Instruction Type:Provider Instructions for Treatment DISCONTINUED - LIPID PANEL ( [id number]) Indication:Atherosclerotic plaque Start:27-Nov-2016 Instruction Type:Patient Education DISCONTINUED - LIPID PANEL ( [id number]) Indication:Other and unspecified hyperlipidemia Start:27-Nov-2016 Instruction Type:Patient Education DISCONTINUED - METABOLIC STRAUSS EL, COMPREHENSIVE ([id number]) Indication:Essential hypertension Start:27-Nov-2016 Instruction Type:Patient Education How to access health informa tion online Indication:Essential hypertension Start:27-Nov-2016 Instruction Type:Patient Education How to access health informa tion online - Detail Indication:Essential hypertension Start:27-Nov-2016 Instruction Type:Patient Education Patient Instructions Indication:Essential hypertension Start:27-Nov-2016 Instruction Type:Provider Instructions for Treatment How to access health informa tion online Indication:Neck pain Start:02-Aug-2016 Instruction Type:Patient Education How to access health informa tion online - Detail Indication:Neck pain Start:02-Aug-2016 Instruction Type:Patient Education Patient Instructions Indication:BMI 27.0-27.9,adult Start:02-Aug-2016 Instruction Type:Provider Instructions for Treatment Patient Instructions Indication:Carotid stenosis, symptomatic w/o infarct, right Start:12-Apr-2016 Instruction Type:Provider Instructions for Treatment How to access health informa tion online Indication:UTI symptoms Start:22-Mar-2016 Instruction Type:Patient Education How to access health informa tion online - Detail Indication:UTI symptoms Start:22-Mar-2016 Instruction Type:Patient Education Patient Instructions Indication:UTI symptoms Start:22-Mar-2016 Instruction Type:Provider Instructions for Treatment How to access health informa tion online Indication:Essential hypertension Start:15-Mar-2016 Instruction Type:Patient Education How to access health informa tion online - Detail Indication:Essential hypertension Start:15-Mar-2016 Instruction Type:Patient Education Patient Instructions Indication:Essential hypertension Start:15-Mar-2016 Instruction Type:Provider Instructions for Treatment How to access health informa tion online Indication:Right sided abdominal pain Start:05-Apr-2015 Instruction Type:Patient Education How to access health informa tion online - Detail Indication:Right sided abdominal pain Start:05-Apr-2015 Instruction Type:Patient Education Patient Instructions Indication:Right sided abdominal pain Start:05-Apr-2015 Instruction Type:Provider Instructions for Treatment How to access health informa tion online Indication:Headache Start:12-Feb-2015 Instruction Type:Patient Education How to access health informa tion online - Detail Indication:Headache Start:12-Feb-2015 Instruction Type:Patient Education Patient Instructions Indication:Headache Start:12-Feb-2015 Instruction Type:Provider Instructions for Treatment How to access health informa tion online Indication:Abdominal pain Start:06-Nov-2014 Instruction Type:Patient Education How to access health informa tion online - Detail Indication:Abdominal pain Start:06-Nov-2014 Instruction Type:Patient Education Patient Instructions Indication:Abdominal pain Start:06-Nov-2014 Instruction Type:Provider Instructions for Treatment Patient Instructions Indication:Chronic cough Start:27-May-2013 Instruction Type:Provider Instructions for Treatment Patient Instructions Indication:Essential hypertension Start:12-Mar-2013 Instruction Type:Provider Instructions for Treatment Patient Instructions Indication:Essential hypertension Start:26-Nov-2012 Instruction Type:Provider Instructions for Treatment Patient Instructions Indication:Essential hypertension Start:17-Jan-2012 Instruction Type:Provider Instructions for Treatment [facility]; [facility] Work Phone: Instructions* Name Dates Details Patient Instructions Indication:Nonsmoker Start:24-Dec-2020 Instruction Type:Provider Instructions for Treatment How to Access Health Informa tion Online using Patient Portal and [employer]rd [employer] Apps Indication:Nonsmoker Start:24-Dec-2020 Instruction Type:Patient Education Patient Instructions Indication:Nonsmoker Start:17-Sep-2020 Instruction Type:Provider Instructions for Treatment How to Access Health Informa tion Online using Patient Portal and [employer]rd [employer] Apps Indication:Nonsmoker Start:17-Sep-2020 Instruction Type:Patient Education Patient Instructions Indication:Nonsmoker Start:25-May-2020 Instruction Type:Provider Instructions for Treatment How to Access Health Informa tion Online using Patient Portal and [employer]rd [employer] Apps Indication:Nonsmoker Start:25-May-2020 Instruction Type:Patient Education How to access health informa tion online Indication:Nonsmoker Start:23-Jan-2020 Instruction Type:Patient Education How to access health informa tion online - Detail Indication:Nonsmoker Start:23-Jan-2020 Instruction Type:Patient Education Patient Instructions Indication:BMI 30.0-30.9,adult Start:23-Jan-2020 Instruction Type:Provider Instructions for Treatment How to access health informa tion online Indication:Nonsmoker Start:22-Jul-2019 Instruction Type:Patient Education How to access health informa tion online - Detail Indication:Nonsmoker Start:22-Jul-2019 Instruction Type:Patient Education Patient Instructions Indication:BMI 29.0-29.9,adult Start:22-Jul-2019 Instruction Type:Provider Instructions for Treatment How to access health informa tion online Indication:BMI 29.0-29.9,adult Start:07-Apr-2019 Instruction Type:Patient Education How to access health informa tion online - Detail Indication:BMI 29.0-29.9,adult Start:07-Apr-2019 Instruction Type:Patient Education Patient Instructions Indication:Hand injury, left, initial encounter Start:07-Apr-2019 Instruction Type:Provider Instructions for Treatment How to access health informa tion online - Detail Indication:Nonsmoker Start:06-Sep-2018 Instruction Type:Patient Education How to access health informa tion online Indication:Nonsmoker Start:06-Sep-2018 Instruction Type:Patient Education Patient Instructions Indication:Alzheimer's dementia Start:06-Sep-2018 Instruction Type:Provider Instructions for Treatment How to access health informa tion online Indication:Nonsmoker Start:10-May-2018 Instruction Type:Patient Education How to access health informa tion online - Detail Indication:Nonsmoker Start:10-May-2018 Instruction Type:Patient Education Patient Instructions Indication:BMI 28.0-28.9,adult Start:10-May-2018 Instruction Type:Provider Instructions for Treatment How to access health informa tion online Indication:Nonsmoker Start:15-Jan-2018 Instruction Type:Patient Education How to access health informa tion online - Detail Indication:Nonsmoker Start:15-Jan-2018 Instruction Type:Patient Education Patient Instructions Indication:Nonsmoker Start:15-Jan-2018 Instruction Type:Provider Instructions for Treatment How to access health informa tion online Indication:Nonsmoker Start:18-Dec-2017 Instruction Type:Patient Education How to access health informa tion online - Detail Indication:Nonsmoker Start:18-Dec-2017 Instruction Type:Patient Education Patient Instructions Indication:BMI 28.0-28.9,adult Start:18-Dec-2017 Instruction Type:Provider Instructions for Treatment How to access health informa tion online Indication:Hypercholesteremia Start:07-Aug-2017 Instruction Type:Patient Education How to access health informa tion online - Detail Indication:Hypercholesteremia Start:07-Aug-2017 Instruction Type:Patient Education Patient Instructions Indication:Hypercholesteremia Start:07-Aug-2017 Instruction Type:Provider Instructions for Treatment How to access health informa tion online Indication:Essential hypertension Start:12-Jun-2017 Instruction Type:Patient Education How to access health informa tion online - Detail Indication:Essential hypertension Start:12-Jun-2017 Instruction Type:Patient Education Patient Instructions Indication:Essential hypertension Start:12-Jun-2017 Instruction Type:Provider Instructions for Treatment How to access health informa tion online Indication:Essential hypertension Start:06-Apr-2017 Instruction Type:Patient Education How to access health informa tion online - Detail Indication:Essential hypertension Start:06-Apr-2017 Instruction Type:Patient Education Patient Instructions Indication:Encounter for screening mammogram for breast cancer (Renamed from Encounter for screening mammogram for malignant neoplasm of breast) Start:06-Apr-2017 Instruction Type:Provider Instructions for Treatment Patient Instructions Indication:Vitamin D deficiency Start:27-Nov-2016 Instruction Type:Provider Instructions for Treatment DISCONTINUED - LIPID PANEL ( [id number]) Indication:Atherosclerotic plaque Start:27-Nov-2016 Instruction Type:Patient Education DISCONTINUED - LIPID PANEL ( [id number]) Indication:Other and unspecified hyperlipidemia Start:27-Nov-2016 Instruction Type:Patient Education DISCONTINUED - METABOLIC STRAUSS EL, COMPREHENSIVE ([id number]) Indication:Essential hypertension Start:27-Nov-2016 Instruction Type:Patient Education How to access health informa tion online Indication:Essential hypertension Start:27-Nov-2016 Instruction Type:Patient Education How to access health informa tion online - Detail Indication:Essential hypertension Start:27-Nov-2016 Instruction Type:Patient Education Patient Instructions Indication:Essential hypertension Start:27-Nov-2016 Instruction Type:Provider Instructions for Treatment How to access health informa tion online Indication:Neck pain Start:02-Aug-2016 Instruction Type:Patient Education How to access health informa tion online - Detail Indication:Neck pain Start:02-Aug-2016 Instruction Type:Patient Education Patient Instructions Indication:BMI 27.0-27.9,adult Start:02-Aug-2016 Instruction Type:Provider Instructions for Treatment Patient Instructions Indication:Carotid stenosis, symptomatic w/o infarct, right Start:12-Apr-2016 Instruction Type:Provider Instructions for Treatment How to access health informa tion online Indication:UTI symptoms Start:22-Mar-2016 Instruction Type:Patient Education How to access health informa tion online - Detail Indication:UTI symptoms Start:22-Mar-2016 Instruction Type:Patient Education Patient Instructions Indication:UTI symptoms Start:22-Mar-2016 Instruction Type:Provider Instructions for Treatment How to access health informa tion online Indication:Essential hypertension Start:15-Mar-2016 Instruction Type:Patient Education How to access health informa tion online - Detail Indication:Essential hypertension Start:15-Mar-2016 Instruction Type:Patient Education Patient Instructions Indication:Essential hypertension Start:15-Mar-2016 Instruction Type:Provider Instructions for Treatment How to access health informa tion online Indication:Right sided abdominal pain Start:05-Apr-2015 Instruction Type:Patient Education How to access health informa tion online - Detail Indication:Right sided abdominal pain Start:05-Apr-2015 Instruction Type:Patient Education Patient Instructions Indication:Right sided abdominal pain Start:05-Apr-2015 Instruction Type:Provider Instructions for Treatment How to access health informa tion online Indication:Headache Start:12-Feb-2015 Instruction Type:Patient Education How to access health informa tion online - Detail Indication:Headache Start:12-Feb-2015 Instruction Type:Patient Education Patient Instructions Indication:Headache Start:12-Feb-2015 Instruction Type:Provider Instructions for Treatment How to access health informa tion online Indication:Abdominal pain Start:06-Nov-2014 Instruction Type:Patient Education How to access health informa tion online - Detail Indication:Abdominal pain Start:06-Nov-2014 Instruction Type:Patient Education Patient Instructions Indication:Abdominal pain Start:06-Nov-2014 Instruction Type:Provider Instructions for Treatment Patient Instructions Indication:Chronic cough Start:27-May-2013 Instruction Type:Provider Instructions for Treatment Patient Instructions Indication:Essential hypertension Start:12-Mar-2013 Instruction Type:Provider Instructions for Treatment Patient Instructions Indication:Essential hypertension Start:26-Nov-2012 Instruction Type:Provider Instructions for Treatment Patient Instructions Indication:Essential hypertension Start:17-Jan-2012 Instruction Type:Provider Instructions for Treatment [facility]; [facility] Work Phone: Instructions* Name Dates Details Patient Instructions Indication:Nonsmoker Start:24-Dec-2020 Instruction Type:Provider Instructions for Treatment How to Access Health Informa tion Online using Patient Portal and [employer]rd [employer] Apps Indication:Nonsmoker Start:24-Dec-2020 Instruction Type:Patient Education Patient Instructions Indication:Nonsmoker Start:17-Sep-2020 Instruction Type:Provider Instructions for Treatment How to Access Health Informa tion Online using Patient Portal and [employer]rd [employer] Apps Indication:Nonsmoker Start:17-Sep-2020 Instruction Type:Patient Education Patient Instructions Indication:Nonsmoker Start:25-May-2020 Instruction Type:Provider Instructions for Treatment How to Access Health Informa tion Online using Patient Portal and [employer]rd [employer] Apps Indication:Nonsmoker Start:25-May-2020 Instruction Type:Patient Education How to access health informa tion online Indication:Nonsmoker Start:23-Jan-2020 Instruction Type:Patient Education How to access health informa tion online - Detail Indication:Nonsmoker Start:23-Jan-2020 Instruction Type:Patient Education Patient Instructions Indication:BMI 30.0-30.9,adult Start:23-Jan-2020 Instruction Type:Provider Instructions for Treatment How to access health informa tion online Indication:Nonsmoker Start:22-Jul-2019 Instruction Type:Patient Education How to access health informa tion online - Detail Indication:Nonsmoker Start:22-Jul-2019 Instruction Type:Patient Education Patient Instructions Indication:BMI 29.0-29.9,adult Start:22-Jul-2019 Instruction Type:Provider Instructions for Treatment How to access health informa tion online Indication:BMI 29.0-29.9,adult Start:07-Apr-2019 Instruction Type:Patient Education How to access health informa tion online - Detail Indication:BMI 29.0-29.9,adult Start:07-Apr-2019 Instruction Type:Patient Education Patient Instructions Indication:Hand injury, left, initial encounter Start:07-Apr-2019 Instruction Type:Provider Instructions for Treatment How to access health informa tion online - Detail Indication:Nonsmoker Start:06-Sep-2018 Instruction Type:Patient Education How to access health informa tion online Indication:Nonsmoker Start:06-Sep-2018 Instruction Type:Patient Education Patient Instructions Indication:Alzheimer's dementia Start:06-Sep-2018 Instruction Type:Provider Instructions for Treatment How to access health informa tion online Indication:Nonsmoker Start:10-May-2018 Instruction Type:Patient Education How to access health informa tion online - Detail Indication:Nonsmoker Start:10-May-2018 Instruction Type:Patient Education Patient Instructions Indication:BMI 28.0-28.9,adult Start:10-May-2018 Instruction Type:Provider Instructions for Treatment How to access health informa tion online Indication:Nonsmoker Start:15-Jan-2018 Instruction Type:Patient Education How to access health informa tion online - Detail Indication:Nonsmoker Start:15-Jan-2018 Instruction Type:Patient Education Patient Instructions Indication:Nonsmoker Start:15-Jan-2018 Instruction Type:Provider Instructions for Treatment How to access health informa tion online Indication:Nonsmoker Start:18-Dec-2017 Instruction Type:Patient Education How to access health informa tion online - Detail Indication:Nonsmoker Start:18-Dec-2017 Instruction Type:Patient Education Patient Instructions Indication:BMI 28.0-28.9,adult Start:18-Dec-2017 Instruction Type:Provider Instructions for Treatment How to access health informa tion online Indication:Hypercholesteremia Start:07-Aug-2017 Instruction Type:Patient Education How to access health informa tion online - Detail Indication:Hypercholesteremia Start:07-Aug-2017 Instruction Type:Patient Education Patient Instructions Indication:Hypercholesteremia Start:07-Aug-2017 Instruction Type:Provider Instructions for Treatment How to access health informa tion online Indication:Essential hypertension Start:12-Jun-2017 Instruction Type:Patient Education How to access health informa tion online - Detail Indication:Essential hypertension Start:12-Jun-2017 Instruction Type:Patient Education Patient Instructions Indication:Essential hypertension Start:12-Jun-2017 Instruction Type:Provider Instructions for Treatment How to access health informa tion online Indication:Essential hypertension Start:06-Apr-2017 Instruction Type:Patient Education How to access health informa tion online - Detail Indication:Essential hypertension Start:06-Apr-2017 Instruction Type:Patient Education Patient Instructions Indication:Encounter for screening mammogram for breast cancer (Renamed from Encounter for screening mammogram for malignant neoplasm of breast) Start:06-Apr-2017 Instruction Type:Provider Instructions for Treatment Patient Instructions Indication:Vitamin D deficiency Start:27-Nov-2016 Instruction Type:Provider Instructions for Treatment DISCONTINUED - LIPID PANEL ( [id number]) Indication:Atherosclerotic plaque Start:27-Nov-2016 Instruction Type:Patient Education DISCONTINUED - LIPID PANEL ( [id number]) Indication:Other and unspecified hyperlipidemia Start:27-Nov-2016 Instruction Type:Patient Education DISCONTINUED - METABOLIC STRAUSS EL, COMPREHENSIVE ([id number]) Indication:Essential hypertension Start:27-Nov-2016 Instruction Type:Patient Education How to access health informa tion online Indication:Essential hypertension Start:27-Nov-2016 Instruction Type:Patient Education How to access health informa tion online - Detail Indication:Essential hypertension Start:27-Nov-2016 Instruction Type:Patient Education Patient Instructions Indication:Essential hypertension Start:27-Nov-2016 Instruction Type:Provider Instructions for Treatment How to access health informa tion online Indication:Neck pain Start:02-Aug-2016 Instruction Type:Patient Education How to access health informa tion online - Detail Indication:Neck pain Start:02-Aug-2016 Instruction Type:Patient Education Patient Instructions Indication:BMI 27.0-27.9,adult Start:02-Aug-2016 Instruction Type:Provider Instructions for Treatment Patient Instructions Indication:Carotid stenosis, symptomatic w/o infarct, right Start:12-Apr-2016 Instruction Type:Provider Instructions for Treatment How to access health informa tion online Indication:UTI symptoms Start:22-Mar-2016 Instruction Type:Patient Education How to access health informa tion online - Detail Indication:UTI symptoms Start:22-Mar-2016 Instruction Type:Patient Education Patient Instructions Indication:UTI symptoms Start:22-Mar-2016 Instruction Type:Provider Instructions for Treatment How to access health informa tion online Indication:Essential hypertension Start:15-Mar-2016 Instruction Type:Patient Education How to access health informa tion online - Detail Indication:Essential hypertension Start:15-Mar-2016 Instruction Type:Patient Education Patient Instructions Indication:Essential hypertension Start:15-Mar-2016 Instruction Type:Provider Instructions for Treatment How to access health informa tion online Indication:Right sided abdominal pain Start:05-Apr-2015 Instruction Type:Patient Education How to access health informa tion online - Detail Indication:Right sided abdominal pain Start:05-Apr-2015 Instruction Type:Patient Education Patient Instructions Indication:Right sided abdominal pain Start:05-Apr-2015 Instruction Type:Provider Instructions for Treatment How to access health informa tion online Indication:Headache Start:12-Feb-2015 Instruction Type:Patient Education How to access health informa tion online - Detail Indication:Headache Start:12-Feb-2015 Instruction Type:Patient Education Patient Instructions Indication:Headache Start:12-Feb-2015 Instruction Type:Provider Instructions for Treatment How to access health informa tion online Indication:Abdominal pain Start:06-Nov-2014 Instruction Type:Patient Education How to access health informa tion online - Detail Indication:Abdominal pain Start:06-Nov-2014 Instruction Type:Patient Education Patient Instructions Indication:Abdominal pain Start:06-Nov-2014 Instruction Type:Provider Instructions for Treatment Patient Instructions Indication:Chronic cough Start:27-May-2013 Instruction Type:Provider Instructions for Treatment Patient Instructions Indication:Essential hypertension Start:12-Mar-2013 Instruction Type:Provider Instructions for Treatment Patient Instructions Indication:Essential hypertension Start:26-Nov-2012 Instruction Type:Provider Instructions for Treatment Patient Instructions Indication:Essential hypertension Start:17-Jan-2012 Instruction Type:Provider Instructions for Treatment [facility]; [facility] Work Phone: Instructions* Name Dates Details Patient Instructions Indication:Nonsmoker Start:05-Apr-2021 Instruction Type:Provider Instructions for Treatment How to Access Health Informa tion Online using Patient Portal and [employer]rd [employer] Apps Indication:Nonsmoker Start:05-Apr-2021 Instruction Type:Patient Education Patient Instructions Indication:Nonsmoker Start:24-Dec-2020 Instruction Type:Provider Instructions for Treatment How to Access Health Informa tion Online using Patient Portal and [employer]rd [employer] Apps Indication:Nonsmoker Start:24-Dec-2020 Instruction Type:Patient Education Patient Instructions Indication:Nonsmoker Start:17-Sep-2020 Instruction Type:Provider Instructions for Treatment How to Access Health Informa tion Online using Patient Portal and [employer]rd [employer] Apps Indication:Nonsmoker Start:17-Sep-2020 Instruction Type:Patient Education Patient Instructions Indication:Nonsmoker Start:25-May-2020 Instruction Type:Provider Instructions for Treatment How to Access Health Informa tion Online using Patient Portal and [employer]rd [employer] Apps Indication:Nonsmoker Start:25-May-2020 Instruction Type:Patient Education How to access health informa tion online Indication:Nonsmoker Start:23-Jan-2020 Instruction Type:Patient Education How to access health informa tion online - Detail Indication:Nonsmoker Start:23-Jan-2020 Instruction Type:Patient Education Patient Instructions Indication:BMI 30.0-30.9,adult Start:23-Jan-2020 Instruction Type:Provider Instructions for Treatment How to access health informa tion online Indication:Nonsmoker Start:22-Jul-2019 Instruction Type:Patient Education How to access health informa tion online - Detail Indication:Nonsmoker Start:22-Jul-2019 Instruction Type:Patient Education Patient Instructions Indication:BMI 29.0-29.9,adult Start:22-Jul-2019 Instruction Type:Provider Instructions for Treatment How to access health informa tion online Indication:BMI 29.0-29.9,adult Start:07-Apr-2019 Instruction Type:Patient Education How to access health informa tion online - Detail Indication:BMI 29.0-29.9,adult Start:07-Apr-2019 Instruction Type:Patient Education Patient Instructions Indication:Hand injury, left, initial encounter Start:07-Apr-2019 Instruction Type:Provider Instructions for Treatment How to access health informa tion online - Detail Indication:Nonsmoker Start:06-Sep-2018 Instruction Type:Patient Education How to access health informa tion online Indication:Nonsmoker Start:06-Sep-2018 Instruction Type:Patient Education Patient Instructions Indication:Alzheimer's dementia Start:06-Sep-2018 Instruction Type:Provider Instructions for Treatment How to access health informa tion online Indication:Nonsmoker Start:10-May-2018 Instruction Type:Patient Education How to access health informa tion online - Detail Indication:Nonsmoker Start:10-May-2018 Instruction Type:Patient Education Patient Instructions Indication:BMI 28.0-28.9,adult Start:10-May-2018 Instruction Type:Provider Instructions for Treatment How to access health informa tion online Indication:Nonsmoker Start:15-Jan-2018 Instruction Type:Patient Education How to access health informa tion online - Detail Indication:Nonsmoker Start:15-Jan-2018 Instruction Type:Patient Education Patient Instructions Indication:Nonsmoker Start:15-Jan-2018 Instruction Type:Provider Instructions for Treatment How to access health informa tion online Indication:Nonsmoker Start:18-Dec-2017 Instruction Type:Patient Education How to access health informa tion online - Detail Indication:Nonsmoker Start:18-Dec-2017 Instruction Type:Patient Education Patient Instructions Indication:BMI 28.0-28.9,adult Start:18-Dec-2017 Instruction Type:Provider Instructions for Treatment How to access health informa tion online Indication:Hypercholesteremia Start:07-Aug-2017 Instruction Type:Patient Education How to access health informa tion online - Detail Indication:Hypercholesteremia Start:07-Aug-2017 Instruction Type:Patient Education Patient Instructions Indication:Hypercholesteremia Start:07-Aug-2017 Instruction Type:Provider Instructions for Treatment How to access health informa tion online Indication:Essential hypertension Start:12-Jun-2017 Instruction Type:Patient Education How to access health informa tion online - Detail Indication:Essential hypertension Start:12-Jun-2017 Instruction Type:Patient Education Patient Instructions Indication:Essential hypertension Start:12-Jun-2017 Instruction Type:Provider Instructions for Treatment How to access health informa tion online Indication:Essential hypertension Start:06-Apr-2017 Instruction Type:Patient Education How to access health informa tion online - Detail Indication:Essential hypertension Start:06-Apr-2017 Instruction Type:Patient Education Patient Instructions Indication:Encounter for screening mammogram for breast cancer (Renamed from Encounter for screening mammogram for malignant neoplasm of breast) Start:06-Apr-2017 Instruction Type:Provider Instructions for Treatment Patient Instructions Indication:Vitamin D deficiency Start:27-Nov-2016 Instruction Type:Provider Instructions for Treatment DISCONTINUED - LIPID PANEL ( [id number]) Indication:Atherosclerotic plaque Start:27-Nov-2016 Instruction Type:Patient Education DISCONTINUED - LIPID PANEL ( [id number]) Indication:Other and unspecified hyperlipidemia Start:27-Nov-2016 Instruction Type:Patient Education DISCONTINUED - METABOLIC STRAUSS EL, COMPREHENSIVE ([id number]) Indication:Essential hypertension Start:27-Nov-2016 Instruction Type:Patient Education How to access health informa tion online Indication:Essential hypertension Start:27-Nov-2016 Instruction Type:Patient Education How to access health informa tion online - Detail Indication:Essential hypertension Start:27-Nov-2016 Instruction Type:Patient Education Patient Instructions Indication:Essential hypertension Start:27-Nov-2016 Instruction Type:Provider Instructions for Treatment How to access health informa tion online Indication:Neck pain Start:02-Aug-2016 Instruction Type:Patient Education How to access health informa tion online - Detail Indication:Neck pain Start:02-Aug-2016 Instruction Type:Patient Education Patient Instructions Indication:BMI 27.0-27.9,adult Start:02-Aug-2016 Instruction Type:Provider Instructions for Treatment Patient Instructions Indication:Carotid stenosis, symptomatic w/o infarct, right Start:12-Apr-2016 Instruction Type:Provider Instructions for Treatment How to access health informa tion online Indication:UTI symptoms Start:22-Mar-2016 Instruction Type:Patient Education How to access health informa tion online - Detail Indication:UTI symptoms Start:22-Mar-2016 Instruction Type:Patient Education Patient Instructions Indication:UTI symptoms Start:22-Mar-2016 Instruction Type:Provider Instructions for Treatment How to access health informa tion online Indication:Essential hypertension Start:15-Mar-2016 Instruction Type:Patient Education How to access health informa tion online - Detail Indication:Essential hypertension Start:15-Mar-2016 Instruction Type:Patient Education Patient Instructions Indication:Essential hypertension Start:15-Mar-2016 Instruction Type:Provider Instructions for Treatment How to access health informa tion online Indication:Right sided abdominal pain Start:05-Apr-2015 Instruction Type:Patient Education How to access health informa tion online - Detail Indication:Right sided abdominal pain Start:05-Apr-2015 Instruction Type:Patient Education Patient Instructions Indication:Right sided abdominal pain Start:05-Apr-2015 Instruction Type:Provider Instructions for Treatment How to access health informa tion online Indication:Headache Start:12-Feb-2015 Instruction Type:Patient Education How to access health informa tion online - Detail Indication:Headache Start:12-Feb-2015 Instruction Type:Patient Education Patient Instructions Indication:Headache Start:12-Feb-2015 Instruction Type:Provider Instructions for Treatment How to access health informa tion online Indication:Abdominal pain Start:06-Nov-2014 Instruction Type:Patient Education How to access health informa tion online - Detail Indication:Abdominal pain Start:06-Nov-2014 Instruction Type:Patient Education Patient Instructions Indication:Abdominal pain Start:06-Nov-2014 Instruction Type:Provider Instructions for Treatment Patient Instructions Indication:Chronic cough Start:27-May-2013 Instruction Type:Provider Instructions for Treatment Patient Instructions Indication:Essential hypertension Start:12-Mar-2013 Instruction Type:Provider Instructions for Treatment Patient Instructions Indication:Essential hypertension Start:26-Nov-2012 Instruction Type:Provider Instructions for Treatment Patient Instructions Indication:Essential hypertension Start:17-Jan-2012 Instruction Type:Provider Instructions for Treatment [facility]; [facility] Work Phone: Instructions* Name Dates Details Patient Instructions Indication:Nonsmoker Start:05-Apr-2021 Instruction Type:Provider Instructions for Treatment How to Access Health Informa tion Online using Patient Portal and [employer]rd [employer] Apps Indication:Nonsmoker Start:05-Apr-2021 Instruction Type:Patient Education Patient Instructions Indication:Nonsmoker Start:24-Dec-2020 Instruction Type:Provider Instructions for Treatment How to Access Health Informa tion Online using Patient Portal and [employer]rd [employer] Apps Indication:Nonsmoker Start:24-Dec-2020 Instruction Type:Patient Education Patient Instructions Indication:Nonsmoker Start:17-Sep-2020 Instruction Type:Provider Instructions for Treatment How to Access Health Informa tion Online using Patient Portal and [employer]rd [employer] Apps Indication:Nonsmoker Start:17-Sep-2020 Instruction Type:Patient Education Patient Instructions Indication:Nonsmoker Start:25-May-2020 Instruction Type:Provider Instructions for Treatment How to Access Health Informa tion Online using Patient Portal and 3rd [employer] Apps Indication:Nonsmoker Start:25-May-2020 Instruction Type:Patient Education How to access health informa tion online Indication:Nonsmoker Start:23-Jan-2020 Instruction Type:Patient Education How to access health informa tion online - Detail Indication:Nonsmoker Start:23-Jan-2020 Instruction Type:Patient Education Patient Instructions Indication:BMI 30.0-30.9,adult Start:23-Jan-2020 Instruction Type:Provider Instructions for Treatment How to access health informa tion online Indication:Nonsmoker Start:22-Jul-2019 Instruction Type:Patient Education How to access health informa tion online - Detail Indication:Nonsmoker Start:22-Jul-2019 Instruction Type:Patient Education Patient Instructions Indication:BMI 29.0-29.9,adult Start:22-Jul-2019 Instruction Type:Provider Instructions for Treatment How to access health informa tion online Indication:BMI 29.0-29.9,adult Start:07-Apr-2019 Instruction Type:Patient Education How to access health informa tion online - Detail Indication:BMI 29.0-29.9,adult Start:07-Apr-2019 Instruction Type:Patient Education Patient Instructions Indication:Hand injury, left, initial encounter Start:07-Apr-2019 Instruction Type:Provider Instructions for Treatment How to access health informa tion online - Detail Indication:Nonsmoker Start:06-Sep-2018 Instruction Type:Patient Education How to access health informa tion online Indication:Nonsmoker Start:06-Sep-2018 Instruction Type:Patient Education Patient Instructions Indication:Alzheimer's dementia Start:06-Sep-2018 Instruction Type:Provider Instructions for Treatment How to access health informa tion online Indication:Nonsmoker Start:10-May-2018 Instruction Type:Patient Education How to access health informa tion online - Detail Indication:Nonsmoker Start:10-May-2018 Instruction Type:Patient Education Patient Instructions Indication:BMI 28.0-28.9,adult Start:10-May-2018 Instruction Type:Provider Instructions for Treatment How to access health informa tion online Indication:Nonsmoker Start:15-Jan-2018 Instruction Type:Patient Education How to access health informa tion online - Detail Indication:Nonsmoker Start:15-Jan-2018 Instruction Type:Patient Education Patient Instructions Indication:Nonsmoker Start:15-Jan-2018 Instruction Type:Provider Instructions for Treatment How to access health informa tion online Indication:Nonsmoker Start:18-Dec-2017 Instruction Type:Patient Education How to access health informa tion online - Detail Indication:Nonsmoker Start:18-Dec-2017 Instruction Type:Patient Education Patient Instructions Indication:BMI 28.0-28.9,adult Start:18-Dec-2017 Instruction Type:Provider Instructions for Treatment How to access health informa tion online Indication:Hypercholesteremia Start:07-Aug-2017 Instruction Type:Patient Education How to access health informa tion online - Detail Indication:Hypercholesteremia Start:07-Aug-2017 Instruction Type:Patient Education Patient Instructions Indication:Hypercholesteremia Start:07-Aug-2017 Instruction Type:Provider Instructions for Treatment How to access health informa tion online Indication:Essential hypertension Start:12-Jun-2017 Instruction Type:Patient Education How to access health informa tion online - Detail Indication:Essential hypertension Start:12-Jun-2017 Instruction Type:Patient Education Patient Instructions Indication:Essential hypertension Start:12-Jun-2017 Instruction Type:Provider Instructions for Treatment How to access health informa tion online Indication:Essential hypertension Start:06-Apr-2017 Instruction Type:Patient Education How to access health informa tion online - Detail Indication:Essential hypertension Start:06-Apr-2017 Instruction Type:Patient Education Patient Instructions Indication:Encounter for screening mammogram for breast cancer (Renamed from Encounter for screening mammogram for malignant neoplasm of breast) Start:06-Apr-2017 Instruction Type:Provider Instructions for Treatment Patient Instructions Indication:Vitamin D deficiency Start:27-Nov-2016 Instruction Type:Provider Instructions for Treatment DISCONTINUED - LIPID PANEL ( [id number]) Indication:Atherosclerotic plaque Start:27-Nov-2016 Instruction Type:Patient Education DISCONTINUED - LIPID PANEL ( [id number]) Indication:Other and unspecified hyperlipidemia Start:27-Nov-2016 Instruction Type:Patient Education DISCONTINUED - METABOLIC STRAUSS EL, COMPREHENSIVE ([id number]) Indication:Essential hypertension Start:27-Nov-2016 Instruction Type:Patient Education How to access health informa tion online Indication:Essential hypertension Start:27-Nov-2016 Instruction Type:Patient Education How to access health informa tion online - Detail Indication:Essential hypertension Start:27-Nov-2016 Instruction Type:Patient Education Patient Instructions Indication:Essential hypertension Start:27-Nov-2016 Instruction Type:Provider Instructions for Treatment How to access health informa tion online Indication:Neck pain Start:02-Aug-2016 Instruction Type:Patient Education How to access health informa tion online - Detail Indication:Neck pain Start:02-Aug-2016 Instruction Type:Patient Education Patient Instructions Indication:BMI 27.0-27.9,adult Start:02-Aug-2016 Instruction Type:Provider Instructions for Treatment Patient Instructions Indication:Carotid stenosis, symptomatic w/o infarct, right Start:12-Apr-2016 Instruction Type:Provider Instructions for Treatment How to access health informa tion online Indication:UTI symptoms Start:22-Mar-2016 Instruction Type:Patient Education How to access health informa tion online - Detail Indication:UTI symptoms Start:22-Mar-2016 Instruction Type:Patient Education Patient Instructions Indication:UTI symptoms Start:22-Mar-2016 Instruction Type:Provider Instructions for Treatment How to access health informa tion online Indication:Essential hypertension Start:15-Mar-2016 Instruction Type:Patient Education How to access health informa tion online - Detail Indication:Essential hypertension Start:15-Mar-2016 Instruction Type:Patient Education Patient Instructions Indication:Essential hypertension Start:15-Mar-2016 Instruction Type:Provider Instructions for Treatment How to access health informa tion online Indication:Right sided abdominal pain Start:05-Apr-2015 Instruction Type:Patient Education How to access health informa tion online - Detail Indication:Right sided abdominal pain Start:05-Apr-2015 Instruction Type:Patient Education Patient Instructions Indication:Right sided abdominal pain Start:05-Apr-2015 Instruction Type:Provider Instructions for Treatment How to access health informa tion online Indication:Headache Start:12-Feb-2015 Instruction Type:Patient Education How to access health informa tion online - Detail Indication:Headache Start:12-Feb-2015 Instruction Type:Patient Education Patient Instructions Indication:Headache Start:12-Feb-2015 Instruction Type:Provider Instructions for Treatment How to access health informa tion online Indication:Abdominal pain Start:06-Nov-2014 Instruction Type:Patient Education How to access health informa tion online - Detail Indication:Abdominal pain Start:06-Nov-2014 Instruction Type:Patient Education Patient Instructions Indication:Abdominal pain Start:06-Nov-2014 Instruction Type:Provider Instructions for Treatment Patient Instructions Indication:Chronic cough Start:27-May-2013 Instruction Type:Provider Instructions for Treatment Patient Instructions Indication:Essential hypertension Start:12-Mar-2013 Instruction Type:Provider Instructions for Treatment Patient Instructions Indication:Essential hypertension Start:26-Nov-2012 Instruction Type:Provider Instructions for Treatment Patient Instructions Indication:Essential hypertension Start:17-Jan-2012 Instruction Type:Provider Instructions for Treatment [facility]; [facility] Work Phone: Instructions* Name Dates Details Patient Instructions Indication:Nonsmoker Start:05-Apr-2021 Instruction Type:Provider Instructions for Treatment How to Access Health Informa tion Online using Patient Portal and [employer]rd [employer] Apps Indication:Nonsmoker Start:05-Apr-2021 Instruction Type:Patient Education Patient Instructions Indication:Nonsmoker Start:24-Dec-2020 Instruction Type:Provider Instructions for Treatment How to Access Health Informa tion Online using Patient Portal and [employer]rd [employer] Apps Indication:Nonsmoker Start:24-Dec-2020 Instruction Type:Patient Education Patient Instructions Indication:Nonsmoker Start:17-Sep-2020 Instruction Type:Provider Instructions for Treatment How to Access Health Informa tion Online using Patient Portal and [employer]rd [employer] Apps Indication:Nonsmoker Start:17-Sep-2020 Instruction Type:Patient Education Patient Instructions Indication:Nonsmoker Start:25-May-2020 Instruction Type:Provider Instructions for Treatment How to Access Health Informa tion Online using Patient Portal and [employer]rd [employer] Apps Indication:Nonsmoker Start:25-May-2020 Instruction Type:Patient Education How to access health informa tion online Indication:Nonsmoker Start:23-Jan-2020 Instruction Type:Patient Education How to access health informa tion online - Detail Indication:Nonsmoker Start:23-Jan-2020 Instruction Type:Patient Education Patient Instructions Indication:BMI 30.0-30.9,adult Start:23-Jan-2020 Instruction Type:Provider Instructions for Treatment How to access health informa tion online Indication:Nonsmoker Start:22-Jul-2019 Instruction Type:Patient Education How to access health informa tion online - Detail Indication:Nonsmoker Start:22-Jul-2019 Instruction Type:Patient Education Patient Instructions Indication:BMI 29.0-29.9,adult Start:22-Jul-2019 Instruction Type:Provider Instructions for Treatment How to access health informa tion online Indication:BMI 29.0-29.9,adult Start:07-Apr-2019 Instruction Type:Patient Education How to access health informa tion online - Detail Indication:BMI 29.0-29.9,adult Start:07-Apr-2019 Instruction Type:Patient Education Patient Instructions Indication:Hand injury, left, initial encounter Start:07-Apr-2019 Instruction Type:Provider Instructions for Treatment How to access health informa tion online - Detail Indication:Nonsmoker Start:06-Sep-2018 Instruction Type:Patient Education How to access health informa tion online Indication:Nonsmoker Start:06-Sep-2018 Instruction Type:Patient Education Patient Instructions Indication:Alzheimer's dementia Start:06-Sep-2018 Instruction Type:Provider Instructions for Treatment How to access health informa tion online Indication:Nonsmoker Start:10-May-2018 Instruction Type:Patient Education How to access health informa tion online - Detail Indication:Nonsmoker Start:10-May-2018 Instruction Type:Patient Education Patient Instructions Indication:BMI 28.0-28.9,adult Start:10-May-2018 Instruction Type:Provider Instructions for Treatment How to access health informa tion online Indication:Nonsmoker Start:15-Jan-2018 Instruction Type:Patient Education How to access health informa tion online - Detail Indication:Nonsmoker Start:15-Jan-2018 Instruction Type:Patient Education Patient Instructions Indication:Nonsmoker Start:15-Jan-2018 Instruction Type:Provider Instructions for Treatment How to access health informa tion online Indication:Nonsmoker Start:18-Dec-2017 Instruction Type:Patient Education How to access health informa tion online - Detail Indication:Nonsmoker Start:18-Dec-2017 Instruction Type:Patient Education Patient Instructions Indication:BMI 28.0-28.9,adult Start:18-Dec-2017 Instruction Type:Provider Instructions for Treatment How to access health informa tion online Indication:Hypercholesteremia Start:07-Aug-2017 Instruction Type:Patient Education How to access health informa tion online - Detail Indication:Hypercholesteremia Start:07-Aug-2017 Instruction Type:Patient Education Patient Instructions Indication:Hypercholesteremia Start:07-Aug-2017 Instruction Type:Provider Instructions for Treatment How to access health informa tion online Indication:Essential hypertension Start:12-Jun-2017 Instruction Type:Patient Education How to access health informa tion online - Detail Indication:Essential hypertension Start:12-Jun-2017 Instruction Type:Patient Education Patient Instructions Indication:Essential hypertension Start:12-Jun-2017 Instruction Type:Provider Instructions for Treatment How to access health informa tion online Indication:Essential hypertension Start:06-Apr-2017 Instruction Type:Patient Education How to access health informa tion online - Detail Indication:Essential hypertension Start:06-Apr-2017 Instruction Type:Patient Education Patient Instructions Indication:Encounter for screening mammogram for breast cancer (Renamed from Encounter for screening mammogram for malignant neoplasm of breast) Start:06-Apr-2017 Instruction Type:Provider Instructions for Treatment Patient Instructions Indication:Vitamin D deficiency Start:27-Nov-2016 Instruction Type:Provider Instructions for Treatment DISCONTINUED - LIPID PANEL ( [id number]) Indication:Atherosclerotic plaque Start:27-Nov-2016 Instruction Type:Patient Education DISCONTINUED - LIPID PANEL ( [id number]) Indication:Other and unspecified hyperlipidemia Start:27-Nov-2016 Instruction Type:Patient Education DISCONTINUED - METABOLIC STRAUSS EL, COMPREHENSIVE ([id number]) Indication:Essential hypertension Start:27-Nov-2016 Instruction Type:Patient Education How to access health informa tion online Indication:Essential hypertension Start:27-Nov-2016 Instruction Type:Patient Education How to access health informa tion online - Detail Indication:Essential hypertension Start:27-Nov-2016 Instruction Type:Patient Education Patient Instructions Indication:Essential hypertension Start:27-Nov-2016 Instruction Type:Provider Instructions for Treatment How to access health informa tion online Indication:Neck pain Start:02-Aug-2016 Instruction Type:Patient Education How to access health informa tion online - Detail Indication:Neck pain Start:02-Aug-2016 Instruction Type:Patient Education Patient Instructions Indication:BMI 27.0-27.9,adult Start:02-Aug-2016 Instruction Type:Provider Instructions for Treatment Patient Instructions Indication:Carotid stenosis, symptomatic w/o infarct, right Start:12-Apr-2016 Instruction Type:Provider Instructions for Treatment How to access health informa tion online Indication:UTI symptoms Start:22-Mar-2016 Instruction Type:Patient Education How to access health informa tion online - Detail Indication:UTI symptoms Start:22-Mar-2016 Instruction Type:Patient Education Patient Instructions Indication:UTI symptoms Start:22-Mar-2016 Instruction Type:Provider Instructions for Treatment How to access health informa tion online Indication:Essential hypertension Start:15-Mar-2016 Instruction Type:Patient Education How to access health informa tion online - Detail Indication:Essential hypertension Start:15-Mar-2016 Instruction Type:Patient Education Patient Instructions Indication:Essential hypertension Start:15-Mar-2016 Instruction Type:Provider Instructions for Treatment How to access health informa tion online Indication:Right sided abdominal pain Start:05-Apr-2015 Instruction Type:Patient Education How to access health informa tion online - Detail Indication:Right sided abdominal pain Start:05-Apr-2015 Instruction Type:Patient Education Patient Instructions Indication:Right sided abdominal pain Start:05-Apr-2015 Instruction Type:Provider Instructions for Treatment How to access health informa tion online Indication:Headache Start:12-Feb-2015 Instruction Type:Patient Education How to access health informa tion online - Detail Indication:Headache Start:12-Feb-2015 Instruction Type:Patient Education Patient Instructions Indication:Headache Start:12-Feb-2015 Instruction Type:Provider Instructions for Treatment How to access health informa tion online Indication:Abdominal pain Start:06-Nov-2014 Instruction Type:Patient Education How to access health informa tion online - Detail Indication:Abdominal pain Start:06-Nov-2014 Instruction Type:Patient Education Patient Instructions Indication:Abdominal pain Start:06-Nov-2014 Instruction Type:Provider Instructions for Treatment Patient Instructions Indication:Chronic cough Start:27-May-2013 Instruction Type:Provider Instructions for Treatment Patient Instructions Indication:Essential hypertension Start:12-Mar-2013 Instruction Type:Provider Instructions for Treatment Patient Instructions Indication:Essential hypertension Start:26-Nov-2012 Instruction Type:Provider Instructions for Treatment Patient Instructions Indication:Essential hypertension Start:17-Jan-2012 Instruction Type:Provider Instructions for Treatment [facility]; [facility] Work Phone: Instructions* Name Dates Details Patient Instructions Indication:Nonsmoker Start:05-Apr-2021 Instruction Type:Provider Instructions for Treatment How to Access Health Informa tion Online using Patient Portal and [employer]rd [employer] Apps Indication:Nonsmoker Start:05-Apr-2021 Instruction Type:Patient Education Patient Instructions Indication:Nonsmoker Start:24-Dec-2020 Instruction Type:Provider Instructions for Treatment How to Access Health Informa tion Online using Patient Portal and [employer]rd [employer] Apps Indication:Nonsmoker Start:24-Dec-2020 Instruction Type:Patient Education Patient Instructions Indication:Nonsmoker Start:17-Sep-2020 Instruction Type:Provider Instructions for Treatment How to Access Health Informa tion Online using Patient Portal and [employer]rd [employer] Apps Indication:Nonsmoker Start:17-Sep-2020 Instruction Type:Patient Education Patient Instructions Indication:Nonsmoker Start:25-May-2020 Instruction Type:Provider Instructions for Treatment How to Access Health Informa tion Online using Patient Portal and [employer]rd [employer] Apps Indication:Nonsmoker Start:25-May-2020 Instruction Type:Patient Education How to access health informa tion online Indication:Nonsmoker Start:23-Jan-2020 Instruction Type:Patient Education How to access health informa tion online - Detail Indication:Nonsmoker Start:23-Jan-2020 Instruction Type:Patient Education Patient Instructions Indication:BMI 30.0-30.9,adult Start:23-Jan-2020 Instruction Type:Provider Instructions for Treatment How to access health informa tion online Indication:Nonsmoker Start:22-Jul-2019 Instruction Type:Patient Education How to access health informa tion online - Detail Indication:Nonsmoker Start:22-Jul-2019 Instruction Type:Patient Education Patient Instructions Indication:BMI 29.0-29.9,adult Start:22-Jul-2019 Instruction Type:Provider Instructions for Treatment How to access health informa tion online Indication:BMI 29.0-29.9,adult Start:07-Apr-2019 Instruction Type:Patient Education How to access health informa tion online - Detail Indication:BMI 29.0-29.9,adult Start:07-Apr-2019 Instruction Type:Patient Education Patient Instructions Indication:Hand injury, left, initial encounter Start:07-Apr-2019 Instruction Type:Provider Instructions for Treatment How to access health informa tion online - Detail Indication:Nonsmoker Start:06-Sep-2018 Instruction Type:Patient Education How to access health informa tion online Indication:Nonsmoker Start:06-Sep-2018 Instruction Type:Patient Education Patient Instructions Indication:Alzheimer's dementia Start:06-Sep-2018 Instruction Type:Provider Instructions for Treatment How to access health informa tion online Indication:Nonsmoker Start:10-May-2018 Instruction Type:Patient Education How to access health informa tion online - Detail Indication:Nonsmoker Start:10-May-2018 Instruction Type:Patient Education Patient Instructions Indication:BMI 28.0-28.9,adult Start:10-May-2018 Instruction Type:Provider Instructions for Treatment How to access health informa tion online Indication:Nonsmoker Start:15-Jan-2018 Instruction Type:Patient Education How to access health informa tion online - Detail Indication:Nonsmoker Start:15-Jan-2018 Instruction Type:Patient Education Patient Instructions Indication:Nonsmoker Start:15-Jan-2018 Instruction Type:Provider Instructions for Treatment How to access health informa tion online Indication:Nonsmoker Start:18-Dec-2017 Instruction Type:Patient Education How to access health informa tion online - Detail Indication:Nonsmoker Start:18-Dec-2017 Instruction Type:Patient Education Patient Instructions Indication:BMI 28.0-28.9,adult Start:18-Dec-2017 Instruction Type:Provider Instructions for Treatment How to access health informa tion online Indication:Hypercholesteremia Start:07-Aug-2017 Instruction Type:Patient Education How to access health informa tion online - Detail Indication:Hypercholesteremia Start:07-Aug-2017 Instruction Type:Patient Education Patient Instructions Indication:Hypercholesteremia Start:07-Aug-2017 Instruction Type:Provider Instructions for Treatment How to access health informa tion online Indication:Essential hypertension Start:12-Jun-2017 Instruction Type:Patient Education How to access health informa tion online - Detail Indication:Essential hypertension Start:12-Jun-2017 Instruction Type:Patient Education Patient Instructions Indication:Essential hypertension Start:12-Jun-2017 Instruction Type:Provider Instructions for Treatment How to access health informa tion online Indication:Essential hypertension Start:06-Apr-2017 Instruction Type:Patient Education How to access health informa tion online - Detail Indication:Essential hypertension Start:06-Apr-2017 Instruction Type:Patient Education Patient Instructions Indication:Encounter for screening mammogram for breast cancer (Renamed from Encounter for screening mammogram for malignant neoplasm of breast) Start:06-Apr-2017 Instruction Type:Provider Instructions for Treatment Patient Instructions Indication:Vitamin D deficiency Start:27-Nov-2016 Instruction Type:Provider Instructions for Treatment DISCONTINUED - LIPID PANEL ( [id number]) Indication:Atherosclerotic plaque Start:27-Nov-2016 Instruction Type:Patient Education DISCONTINUED - LIPID PANEL ( [id number]) Indication:Other and unspecified hyperlipidemia Start:27-Nov-2016 Instruction Type:Patient Education DISCONTINUED - METABOLIC STRAUSS EL, COMPREHENSIVE ([id number]) Indication:Essential hypertension Start:27-Nov-2016 Instruction Type:Patient Education How to access health informa tion online Indication:Essential hypertension Start:27-Nov-2016 Instruction Type:Patient Education How to access health informa tion online - Detail Indication:Essential hypertension Start:27-Nov-2016 Instruction Type:Patient Education Patient Instructions Indication:Essential hypertension Start:27-Nov-2016 Instruction Type:Provider Instructions for Treatment How to access health informa tion online Indication:Neck pain Start:02-Aug-2016 Instruction Type:Patient Education How to access health informa tion online - Detail Indication:Neck pain Start:02-Aug-2016 Instruction Type:Patient Education Patient Instructions Indication:BMI 27.0-27.9,adult Start:02-Aug-2016 Instruction Type:Provider Instructions for Treatment Patient Instructions Indication:Carotid stenosis, symptomatic w/o infarct, right Start:12-Apr-2016 Instruction Type:Provider Instructions for Treatment How to access health informa tion online Indication:UTI symptoms Start:22-Mar-2016 Instruction Type:Patient Education How to access health informa tion online - Detail Indication:UTI symptoms Start:22-Mar-2016 Instruction Type:Patient Education Patient Instructions Indication:UTI symptoms Start:22-Mar-2016 Instruction Type:Provider Instructions for Treatment How to access health informa tion online Indication:Essential hypertension Start:15-Mar-2016 Instruction Type:Patient Education How to access health informa tion online - Detail Indication:Essential hypertension Start:15-Mar-2016 Instruction Type:Patient Education Patient Instructions Indication:Essential hypertension Start:15-Mar-2016 Instruction Type:Provider Instructions for Treatment How to access health informa tion online Indication:Right sided abdominal pain Start:05-Apr-2015 Instruction Type:Patient Education How to access health informa tion online - Detail Indication:Right sided abdominal pain Start:05-Apr-2015 Instruction Type:Patient Education Patient Instructions Indication:Right sided abdominal pain Start:05-Apr-2015 Instruction Type:Provider Instructions for Treatment How to access health informa tion online Indication:Headache Start:12-Feb-2015 Instruction Type:Patient Education How to access health informa tion online - Detail Indication:Headache Start:12-Feb-2015 Instruction Type:Patient Education Patient Instructions Indication:Headache Start:12-Feb-2015 Instruction Type:Provider Instructions for Treatment How to access health informa tion online Indication:Abdominal pain Start:06-Nov-2014 Instruction Type:Patient Education How to access health informa tion online - Detail Indication:Abdominal pain Start:06-Nov-2014 Instruction Type:Patient Education Patient Instructions Indication:Abdominal pain Start:06-Nov-2014 Instruction Type:Provider Instructions for Treatment Patient Instructions Indication:Chronic cough Start:27-May-2013 Instruction Type:Provider Instructions for Treatment Patient Instructions Indication:Essential hypertension Start:12-Mar-2013 Instruction Type:Provider Instructions for Treatment Patient Instructions Indication:Essential hypertension Start:26-Nov-2012 Instruction Type:Provider Instructions for Treatment Patient Instructions Indication:Essential hypertension Start:17-Jan-2012 Instruction Type:Provider Instructions for Treatment [facility]; [facility] Work Phone: Instructions* Name Dates Details Patient Instructions Indication:Nonsmoker Start:05-Apr-2021 Instruction Type:Provider Instructions for Treatment How to Access Health Informa tion Online using Patient Portal and [employer]rd [employer] Apps Indication:Nonsmoker Start:05-Apr-2021 Instruction Type:Patient Education Patient Instructions Indication:Nonsmoker Start:24-Dec-2020 Instruction Type:Provider Instructions for Treatment How to Access Health Informa tion Online using Patient Portal and [employer]rd [employer] Apps Indication:Nonsmoker Start:24-Dec-2020 Instruction Type:Patient Education Patient Instructions Indication:Nonsmoker Start:17-Sep-2020 Instruction Type:Provider Instructions for Treatment How to Access Health Informa tion Online using Patient Portal and [employer]rd [employer] Apps Indication:Nonsmoker Start:17-Sep-2020 Instruction Type:Patient Education Patient Instructions Indication:Nonsmoker Start:25-May-2020 Instruction Type:Provider Instructions for Treatment How to Access Health Informa tion Online using Patient Portal and [employer] Apps Indication:Nonsmoker Start:25-May-2020 Instruction Type:Patient Education How to access health informa tion online Indication:Nonsmoker Start:23-Jan-2020 Instruction Type:Patient Education How to access health informa tion online - Detail Indication:Nonsmoker Start:23-Jan-2020 Instruction Type:Patient Education Patient Instructions Indication:BMI 30.0-30.9,adult Start:23-Jan-2020 Instruction Type:Provider Instructions for Treatment How to access health informa tion online Indication:Nonsmoker Start:22-Jul-2019 Instruction Type:Patient Education How to access health informa tion online - Detail Indication:Nonsmoker Start:22-Jul-2019 Instruction Type:Patient Education Patient Instructions Indication:BMI 29.0-29.9,adult Start:22-Jul-2019 Instruction Type:Provider Instructions for Treatment How to access health informa tion online Indication:BMI 29.0-29.9,adult Start:07-Apr-2019 Instruction Type:Patient Education How to access health informa tion online - Detail Indication:BMI 29.0-29.9,adult Start:07-Apr-2019 Instruction Type:Patient Education Patient Instructions Indication:Hand injury, left, initial encounter Start:07-Apr-2019 Instruction Type:Provider Instructions for Treatment How to access health informa tion online - Detail Indication:Nonsmoker Start:06-Sep-2018 Instruction Type:Patient Education How to access health informa tion online Indication:Nonsmoker Start:06-Sep-2018 Instruction Type:Patient Education Patient Instructions Indication:Alzheimer's dementia Start:06-Sep-2018 Instruction Type:Provider Instructions for Treatment How to access health informa tion online Indication:Nonsmoker Start:10-May-2018 Instruction Type:Patient Education How to access health informa tion online - Detail Indication:Nonsmoker Start:10-May-2018 Instruction Type:Patient Education Patient Instructions Indication:BMI 28.0-28.9,adult Start:10-May-2018 Instruction Type:Provider Instructions for Treatment How to access health informa tion online Indication:Nonsmoker Start:15-Jan-2018 Instruction Type:Patient Education How to access health informa tion online - Detail Indication:Nonsmoker Start:15-Jan-2018 Instruction Type:Patient Education Patient Instructions Indication:Nonsmoker Start:15-Jan-2018 Instruction Type:Provider Instructions for Treatment How to access health informa tion online Indication:Nonsmoker Start:18-Dec-2017 Instruction Type:Patient Education How to access health informa tion online - Detail Indication:Nonsmoker Start:18-Dec-2017 Instruction Type:Patient Education Patient Instructions Indication:BMI 28.0-28.9,adult Start:18-Dec-2017 Instruction Type:Provider Instructions for Treatment How to access health informa tion online Indication:Hypercholesteremia Start:07-Aug-2017 Instruction Type:Patient Education How to access health informa tion online - Detail Indication:Hypercholesteremia Start:07-Aug-2017 Instruction Type:Patient Education Patient Instructions Indication:Hypercholesteremia Start:07-Aug-2017 Instruction Type:Provider Instructions for Treatment How to access health informa tion online Indication:Essential hypertension Start:12-Jun-2017 Instruction Type:Patient Education How to access health informa tion online - Detail Indication:Essential hypertension Start:12-Jun-2017 Instruction Type:Patient Education Patient Instructions Indication:Essential hypertension Start:12-Jun-2017 Instruction Type:Provider Instructions for Treatment How to access health informa tion online Indication:Essential hypertension Start:06-Apr-2017 Instruction Type:Patient Education How to access health informa tion online - Detail Indication:Essential hypertension Start:06-Apr-2017 Instruction Type:Patient Education Patient Instructions Indication:Encounter for screening mammogram for breast cancer (Renamed from Encounter for screening mammogram for malignant neoplasm of breast) Start:06-Apr-2017 Instruction Type:Provider Instructions for Treatment Patient Instructions Indication:Vitamin D deficiency Start:27-Nov-2016 Instruction Type:Provider Instructions for Treatment DISCONTINUED - LIPID PANEL ( [id number]) Indication:Atherosclerotic plaque Start:27-Nov-2016 Instruction Type:Patient Education DISCONTINUED - LIPID PANEL ( [id number]) Indication:Other and unspecified hyperlipidemia Start:27-Nov-2016 Instruction Type:Patient Education DISCONTINUED - METABOLIC STRAUSS EL, COMPREHENSIVE (88940) Indication:Essential hypertension Start:27-Nov-2016 Instruction Type:Patient Education How to access health informa tion online Indication:Essential hypertension Start:27-Nov-2016 Instruction Type:Patient Education How to access health informa tion online - Detail Indication:Essential hypertension Start:27-Nov-2016 Instruction Type:Patient Education Patient Instructions Indication:Essential hypertension Start:27-Nov-2016 Instruction Type:Provider Instructions for Treatment How to access health informa tion online Indication:Neck pain Start:02-Aug-2016 Instruction Type:Patient Education How to access health informa tion online - Detail Indication:Neck pain Start:02-Aug-2016 Instruction Type:Patient Education Patient Instructions Indication:BMI 27.0-27.9,adult Start:02-Aug-2016 Instruction Type:Provider Instructions for Treatment Patient Instructions Indication:Carotid stenosis, symptomatic w/o infarct, right Start:12-Apr-2016 Instruction Type:Provider Instructions for Treatment How to access health informa tion online Indication:UTI symptoms Start:22-Mar-2016 Instruction Type:Patient Education How to access health informa tion online - Detail Indication:UTI symptoms Start:22-Mar-2016 Instruction Type:Patient Education Patient Instructions Indication:UTI symptoms Start:22-Mar-2016 Instruction Type:Provider Instructions for Treatment How to access health informa tion online Indication:Essential hypertension Start:15-Mar-2016 Instruction Type:Patient Education How to access health informa tion online - Detail Indication:Essential hypertension Start:15-Mar-2016 Instruction Type:Patient Education Patient Instructions Indication:Essential hypertension Start:15-Mar-2016 Instruction Type:Provider Instructions for Treatment How to access health informa tion online Indication:Right sided abdominal pain Start:05-Apr-2015 Instruction Type:Patient Education How to access health informa tion online - Detail Indication:Right sided abdominal pain Start:05-Apr-2015 Instruction Type:Patient Education Patient Instructions Indication:Right sided abdominal pain Start:05-Apr-2015 Instruction Type:Provider Instructions for Treatment How to access health informa tion online Indication:Headache Start:12-Feb-2015 Instruction Type:Patient Education How to access health informa tion online - Detail Indication:Headache Start:12-Feb-2015 Instruction Type:Patient Education Patient Instructions Indication:Headache Start:12-Feb-2015 Instruction Type:Provider Instructions for Treatment How to access health informa tion online Indication:Abdominal pain Start:06-Nov-2014 Instruction Type:Patient Education How to access health informa tion online - Detail Indication:Abdominal pain Start:06-Nov-2014 Instruction Type:Patient Education Patient Instructions Indication:Abdominal pain Start:06-Nov-2014 Instruction Type:Provider Instructions for Treatment Patient Instructions Indication:Chronic cough Start:27-May-2013 Instruction Type:Provider Instructions for Treatment Patient Instructions Indication:Essential hypertension Start:12-Mar-2013 Instruction Type:Provider Instructions for Treatment Patient Instructions Indication:Essential hypertension Start:26-Nov-2012 Instruction Type:Provider Instructions for Treatment Patient Instructions Indication:Essential hypertension Start:17-Jan-2012 Instruction Type:Provider Instructions for Treatment [facility]; [facility] Work Phone: Instructions* Name Dates Details Patient Instructions Indication:Nonsmoker Start:23-Sep-2021 Instruction Type:Provider Instructions for Treatment How to Access Health Informa tion Online using Patient Portal and [employer] Apps Indication:Nonsmoker Start:23-Sep-2021 Instruction Type:Patient Education Patient Instructions Indication:Nonsmoker Start:05-Apr-2021 Instruction Type:Provider Instructions for Treatment How to Access Health Informa tion Online using Patient Portal and [employer] Apps Indication:Nonsmoker Start:05-Apr-2021 Instruction Type:Patient Education Patient Instructions Indication:Nonsmoker Start:24-Dec-2020 Instruction Type:Provider Instructions for Treatment How to Access Health Informa tion Online using Patient Portal and [employer] Apps Indication:Nonsmoker Start:24-Dec-2020 Instruction Type:Patient Education Patient Instructions Indication:Nonsmoker Start:17-Sep-2020 Instruction Type:Provider Instructions for Treatment How to Access Health Informa tion Online using Patient Portal and [employer] Apps Indication:Nonsmoker Start:17-Sep-2020 Instruction Type:Patient Education Patient Instructions Indication:Nonsmoker Start:25-May-2020 Instruction Type:Provider Instructions for Treatment How to Access Health Informa tion Online using Patient Portal and [employer] Apps Indication:Nonsmoker Start:25-May-2020 Instruction Type:Patient Education How to access health informa tion online Indication:Nonsmoker Start:23-Jan-2020 Instruction Type:Patient Education How to access health informa tion online - Detail Indication:Nonsmoker Start:23-Jan-2020 Instruction Type:Patient Education Patient Instructions Indication:BMI 30.0-30.9,adult Start:23-Jan-2020 Instruction Type:Provider Instructions for Treatment How to access health informa tion online Indication:Nonsmoker Start:22-Jul-2019 Instruction Type:Patient Education How to access health informa tion online - Detail Indication:Nonsmoker Start:22-Jul-2019 Instruction Type:Patient Education Patient Instructions Indication:BMI 29.0-29.9,adult Start:22-Jul-2019 Instruction Type:Provider Instructions for Treatment How to access health informa tion online Indication:BMI 29.0-29.9,adult Start:07-Apr-2019 Instruction Type:Patient Education How to access health informa tion online - Detail Indication:BMI 29.0-29.9,adult Start:07-Apr-2019 Instruction Type:Patient Education Patient Instructions Indication:Hand injury, left, initial encounter Start:07-Apr-2019 Instruction Type:Provider Instructions for Treatment How to access health informa tion online - Detail Indication:Nonsmoker Start:06-Sep-2018 Instruction Type:Patient Education How to access health informa tion online Indication:Nonsmoker Start:06-Sep-2018 Instruction Type:Patient Education Patient Instructions Indication:Alzheimer's dementia Start:06-Sep-2018 Instruction Type:Provider Instructions for Treatment How to access health informa tion online Indication:Nonsmoker Start:10-May-2018 Instruction Type:Patient Education How to access health informa tion online - Detail Indication:Nonsmoker Start:10-May-2018 Instruction Type:Patient Education Patient Instructions Indication:BMI 28.0-28.9,adult Start:10-May-2018 Instruction Type:Provider Instructions for Treatment How to access health informa tion online Indication:Nonsmoker Start:15-Jan-2018 Instruction Type:Patient Education How to access health informa tion online - Detail Indication:Nonsmoker Start:15-Jan-2018 Instruction Type:Patient Education Patient Instructions Indication:Nonsmoker Start:15-Jan-2018 Instruction Type:Provider Instructions for Treatment How to access health informa tion online Indication:Nonsmoker Start:18-Dec-2017 Instruction Type:Patient Education How to access health informa tion online - Detail Indication:Nonsmoker Start:18-Dec-2017 Instruction Type:Patient Education Patient Instructions Indication:BMI 28.0-28.9,adult Start:18-Dec-2017 Instruction Type:Provider Instructions for Treatment How to access health informa tion online Indication:Hypercholesteremia Start:07-Aug-2017 Instruction Type:Patient Education How to access health informa tion online - Detail Indication:Hypercholesteremia Start:07-Aug-2017 Instruction Type:Patient Education Patient Instructions Indication:Hypercholesteremia Start:07-Aug-2017 Instruction Type:Provider Instructions for Treatment How to access health informa tion online Indication:Essential hypertension Start:12-Jun-2017 Instruction Type:Patient Education How to access health informa tion online - Detail Indication:Essential hypertension Start:12-Jun-2017 Instruction Type:Patient Education Patient Instructions Indication:Essential hypertension Start:12-Jun-2017 Instruction Type:Provider Instructions for Treatment How to access health informa tion online Indication:Essential hypertension Start:06-Apr-2017 Instruction Type:Patient Education How to access health informa tion online - Detail Indication:Essential hypertension Start:06-Apr-2017 Instruction Type:Patient Education Patient Instructions Indication:Encounter for screening mammogram for breast cancer (Renamed from Encounter for screening mammogram for malignant neoplasm of breast) Start:06-Apr-2017 Instruction Type:Provider Instructions for Treatment Patient Instructions Indication:Vitamin D deficiency Start:27-Nov-2016 Instruction Type:Provider Instructions for Treatment DISCONTINUED - LIPID PANEL ( [id number]) Indication:Atherosclerotic plaque Start:27-Nov-2016 Instruction Type:Patient Education DISCONTINUED - LIPID PANEL ( [id number]) Indication:Other and unspecified hyperlipidemia Start:27-Nov-2016 Instruction Type:Patient Education DISCONTINUED - METABOLIC STRAUSS EL, COMPREHENSIVE ([id number]) Indication:Essential hypertension Start:27-Nov-2016 Instruction Type:Patient Education How to access health informa tion online Indication:Essential hypertension Start:27-Nov-2016 Instruction Type:Patient Education How to access health informa tion online - Detail Indication:Essential hypertension Start:27-Nov-2016 Instruction Type:Patient Education Patient Instructions Indication:Essential hypertension Start:27-Nov-2016 Instruction Type:Provider Instructions for Treatment How to access health informa tion online Indication:Neck pain Start:02-Aug-2016 Instruction Type:Patient Education How to access health informa tion online - Detail Indication:Neck pain Start:02-Aug-2016 Instruction Type:Patient Education Patient Instructions Indication:BMI 27.0-27.9,adult Start:02-Aug-2016 Instruction Type:Provider Instructions for Treatment Patient Instructions Indication:Carotid stenosis, symptomatic w/o infarct, right Start:12-Apr-2016 Instruction Type:Provider Instructions for Treatment How to access health informa tion online Indication:UTI symptoms Start:22-Mar-2016 Instruction Type:Patient Education How to access health informa tion online - Detail Indication:UTI symptoms Start:22-Mar-2016 Instruction Type:Patient Education Patient Instructions Indication:UTI symptoms Start:22-Mar-2016 Instruction Type:Provider Instructions for Treatment How to access health informa tion online Indication:Essential hypertension Start:15-Mar-2016 Instruction Type:Patient Education How to access health informa tion online - Detail Indication:Essential hypertension Start:15-Mar-2016 Instruction Type:Patient Education Patient Instructions Indication:Essential hypertension Start:15-Mar-2016 Instruction Type:Provider Instructions for Treatment How to access health informa tion online Indication:Right sided abdominal pain Start:05-Apr-2015 Instruction Type:Patient Education How to access health informa tion online - Detail Indication:Right sided abdominal pain Start:05-Apr-2015 Instruction Type:Patient Education Patient Instructions Indication:Right sided abdominal pain Start:05-Apr-2015 Instruction Type:Provider Instructions for Treatment How to access health informa tion online Indication:Headache Start:12-Feb-2015 Instruction Type:Patient Education How to access health informa tion online - Detail Indication:Headache Start:12-Feb-2015 Instruction Type:Patient Education Patient Instructions Indication:Headache Start:12-Feb-2015 Instruction Type:Provider Instructions for Treatment How to access health informa tion online Indication:Abdominal pain Start:06-Nov-2014 Instruction Type:Patient Education How to access health informa tion online - Detail Indication:Abdominal pain Start:06-Nov-2014 Instruction Type:Patient Education Patient Instructions Indication:Abdominal pain Start:06-Nov-2014 Instruction Type:Provider Instructions for Treatment Patient Instructions Indication:Chronic cough Start:27-May-2013 Instruction Type:Provider Instructions for Treatment Patient Instructions Indication:Essential hypertension Start:12-Mar-2013 Instruction Type:Provider Instructions for Treatment Patient Instructions Indication:Essential hypertension Start:26-Nov-2012 Instruction Type:Provider Instructions for Treatment Patient Instructions Indication:Essential hypertension Start:17-Jan-2012 Instruction Type:Provider Instructions for Treatment [facility]; [facility] Work Phone: Instructions* Name Dates Details Patient Instructions Indication:Nonsmoker Start:23-Sep-2021 Instruction Type:Provider Instructions for Treatment How to Access Health Informa tion Online using Patient Portal and [employer] Apps Indication:Nonsmoker Start:23-Sep-2021 Instruction Type:Patient Education Patient Instructions Indication:Nonsmoker Start:05-Apr-2021 Instruction Type:Provider Instructions for Treatment How to Access Health Informa tion Online using Patient Portal and [employer] Apps Indication:Nonsmoker Start:05-Apr-2021 Instruction Type:Patient Education Patient Instructions Indication:Nonsmoker Start:24-Dec-2020 Instruction Type:Provider Instructions for Treatment How to Access Health Informa tion Online using Patient Portal and [employer] Apps Indication:Nonsmoker Start:24-Dec-2020 Instruction Type:Patient Education Patient Instructions Indication:Nonsmoker Start:17-Sep-2020 Instruction Type:Provider Instructions for Treatment How to Access Health Informa tion Online using Patient Portal and [employer] Apps Indication:Nonsmoker Start:17-Sep-2020 Instruction Type:Patient Education Patient Instructions Indication:Nonsmoker Start:25-May-2020 Instruction Type:Provider Instructions for Treatment How to Access Health Informa tion Online using Patient Portal and [employer] Apps Indication:Nonsmoker Start:25-May-2020 Instruction Type:Patient Education How to access health informa tion online Indication:Nonsmoker Start:23-Jan-2020 Instruction Type:Patient Education How to access health informa tion online - Detail Indication:Nonsmoker Start:23-Jan-2020 Instruction Type:Patient Education Patient Instructions Indication:BMI 30.0-30.9,adult Start:23-Jan-2020 Instruction Type:Provider Instructions for Treatment How to access health informa tion online Indication:Nonsmoker Start:22-Jul-2019 Instruction Type:Patient Education How to access health informa tion online - Detail Indication:Nonsmoker Start:22-Jul-2019 Instruction Type:Patient Education Patient Instructions Indication:BMI 29.0-29.9,adult Start:22-Jul-2019 Instruction Type:Provider Instructions for Treatment How to access health informa tion online Indication:BMI 29.0-29.9,adult Start:07-Apr-2019 Instruction Type:Patient Education How to access health informa tion online - Detail Indication:BMI 29.0-29.9,adult Start:07-Apr-2019 Instruction Type:Patient Education Patient Instructions Indication:Hand injury, left, initial encounter Start:07-Apr-2019 Instruction Type:Provider Instructions for Treatment How to access health informa tion online - Detail Indication:Nonsmoker Start:06-Sep-2018 Instruction Type:Patient Education How to access health informa tion online Indication:Nonsmoker Start:06-Sep-2018 Instruction Type:Patient Education Patient Instructions Indication:Alzheimer's dementia Start:06-Sep-2018 Instruction Type:Provider Instructions for Treatment How to access health informa tion online Indication:Nonsmoker Start:10-May-2018 Instruction Type:Patient Education How to access health informa tion online - Detail Indication:Nonsmoker Start:10-May-2018 Instruction Type:Patient Education Patient Instructions Indication:BMI 28.0-28.9,adult Start:10-May-2018 Instruction Type:Provider Instructions for Treatment How to access health informa tion online Indication:Nonsmoker Start:15-Jan-2018 Instruction Type:Patient Education How to access health informa tion online - Detail Indication:Nonsmoker Start:15-Jan-2018 Instruction Type:Patient Education Patient Instructions Indication:Nonsmoker Start:15-Jan-2018 Instruction Type:Provider Instructions for Treatment How to access health informa tion online Indication:Nonsmoker Start:18-Dec-2017 Instruction Type:Patient Education How to access health informa tion online - Detail Indication:Nonsmoker Start:18-Dec-2017 Instruction Type:Patient Education Patient Instructions Indication:BMI 28.0-28.9,adult Start:18-Dec-2017 Instruction Type:Provider Instructions for Treatment How to access health informa tion online Indication:Hypercholesteremia Start:07-Aug-2017 Instruction Type:Patient Education How to access health informa tion online - Detail Indication:Hypercholesteremia Start:07-Aug-2017 Instruction Type:Patient Education Patient Instructions Indication:Hypercholesteremia Start:07-Aug-2017 Instruction Type:Provider Instructions for Treatment How to access health informa tion online Indication:Essential hypertension Start:12-Jun-2017 Instruction Type:Patient Education How to access health informa tion online - Detail Indication:Essential hypertension Start:12-Jun-2017 Instruction Type:Patient Education Patient Instructions Indication:Essential hypertension Start:12-Jun-2017 Instruction Type:Provider Instructions for Treatment How to access health informa tion online Indication:Essential hypertension Start:06-Apr-2017 Instruction Type:Patient Education How to access health informa tion online - Detail Indication:Essential hypertension Start:06-Apr-2017 Instruction Type:Patient Education Patient Instructions Indication:Encounter for screening mammogram for breast cancer (Renamed from Encounter for screening mammogram for malignant neoplasm of breast) Start:06-Apr-2017 Instruction Type:Provider Instructions for Treatment Patient Instructions Indication:Vitamin D deficiency Start:27-Nov-2016 Instruction Type:Provider Instructions for Treatment DISCONTINUED - LIPID PANEL ( [id number]) Indication:Atherosclerotic plaque Start:27-Nov-2016 Instruction Type:Patient Education DISCONTINUED - LIPID PANEL ( [id number]) Indication:Other and unspecified hyperlipidemia Start:27-Nov-2016 Instruction Type:Patient Education DISCONTINUED - METABOLIC STRAUSS EL, COMPREHENSIVE ([id number]) Indication:Essential hypertension Start:27-Nov-2016 Instruction Type:Patient Education How to access health informa tion online Indication:Essential hypertension Start:27-Nov-2016 Instruction Type:Patient Education How to access health informa tion online - Detail Indication:Essential hypertension Start:27-Nov-2016 Instruction Type:Patient Education Patient Instructions Indication:Essential hypertension Start:27-Nov-2016 Instruction Type:Provider Instructions for Treatment How to access health informa tion online Indication:Neck pain Start:02-Aug-2016 Instruction Type:Patient Education How to access health informa tion online - Detail Indication:Neck pain Start:02-Aug-2016 Instruction Type:Patient Education Patient Instructions Indication:BMI 27.0-27.9,adult Start:02-Aug-2016 Instruction Type:Provider Instructions for Treatment Patient Instructions Indication:Carotid stenosis, symptomatic w/o infarct, right Start:12-Apr-2016 Instruction Type:Provider Instructions for Treatment How to access health informa tion online Indication:UTI symptoms Start:22-Mar-2016 Instruction Type:Patient Education How to access health informa tion online - Detail Indication:UTI symptoms Start:22-Mar-2016 Instruction Type:Patient Education Patient Instructions Indication:UTI symptoms Start:22-Mar-2016 Instruction Type:Provider Instructions for Treatment How to access health informa tion online Indication:Essential hypertension Start:15-Mar-2016 Instruction Type:Patient Education How to access health informa tion online - Detail Indication:Essential hypertension Start:15-Mar-2016 Instruction Type:Patient Education Patient Instructions Indication:Essential hypertension Start:15-Mar-2016 Instruction Type:Provider Instructions for Treatment How to access health informa tion online Indication:Right sided abdominal pain Start:05-Apr-2015 Instruction Type:Patient Education How to access health informa tion online - Detail Indication:Right sided abdominal pain Start:05-Apr-2015 Instruction Type:Patient Education Patient Instructions Indication:Right sided abdominal pain Start:05-Apr-2015 Instruction Type:Provider Instructions for Treatment How to access health informa tion online Indication:Headache Start:12-Feb-2015 Instruction Type:Patient Education How to access health informa tion online - Detail Indication:Headache Start:12-Feb-2015 Instruction Type:Patient Education Patient Instructions Indication:Headache Start:12-Feb-2015 Instruction Type:Provider Instructions for Treatment How to access health informa tion online Indication:Abdominal pain Start:06-Nov-2014 Instruction Type:Patient Education How to access health informa tion online - Detail Indication:Abdominal pain Start:06-Nov-2014 Instruction Type:Patient Education Patient Instructions Indication:Abdominal pain Start:06-Nov-2014 Instruction Type:Provider Instructions for Treatment Patient Instructions Indication:Chronic cough Start:27-May-2013 Instruction Type:Provider Instructions for Treatment Patient Instructions Indication:Essential hypertension Start:12-Mar-2013 Instruction Type:Provider Instructions for Treatment Patient Instructions Indication:Essential hypertension Start:26-Nov-2012 Instruction Type:Provider Instructions for Treatment Patient Instructions Indication:Essential hypertension Start:17-Jan-2012 Instruction Type:Provider Instructions for Treatment [facility]; [facility] Work Phone: Instructions* Name Dates Details How to Access Health Informa tion Online using Patient Portal and [employer] Apps Indication:Nonsmoker Start:31-Jan-2022 Instruction Type:Patient Education Patient Instructions Indication:Nonsmoker Start:31-Jan-2022 Instruction Type:Provider Instructions for Treatment Patient Instructions Indication:Nonsmoker Start:23-Sep-2021 Instruction Type:Provider Instructions for Treatment How to Access Health Informa tion Online using Patient Portal and [employer] Apps Indication:Nonsmoker Start:23-Sep-2021 Instruction Type:Patient Education Patient Instructions Indication:Nonsmoker Start:05-Apr-2021 Instruction Type:Provider Instructions for Treatment How to Access Health Informa tion Online using Patient Portal and [employer] Apps Indication:Nonsmoker Start:05-Apr-2021 Instruction Type:Patient Education Patient Instructions Indication:Nonsmoker Start:24-Dec-2020 Instruction Type:Provider Instructions for Treatment How to Access Health Informa tion Online using Patient Portal and [employer] Apps Indication:Nonsmoker Start:24-Dec-2020 Instruction Type:Patient Education Patient Instructions Indication:Nonsmoker Start:17-Sep-2020 Instruction Type:Provider Instructions for Treatment How to Access Health Informa tion Online using Patient Portal and [employer] Apps Indication:Nonsmoker Start:17-Sep-2020 Instruction Type:Patient Education Patient Instructions Indication:Nonsmoker Start:25-May-2020 Instruction Type:Provider Instructions for Treatment How to Access Health Informa tion Online using Patient Portal and [employer] Apps Indication:Nonsmoker Start:25-May-2020 Instruction Type:Patient Education How to access health informa tion online Indication:Nonsmoker Start:23-Jan-2020 Instruction Type:Patient Education How to access health informa tion online - Detail Indication:Nonsmoker Start:23-Jan-2020 Instruction Type:Patient Education Patient Instructions Indication:BMI 30.0-30.9,adult Start:23-Jan-2020 Instruction Type:Provider Instructions for Treatment How to access health informa tion online Indication:Nonsmoker Start:22-Jul-2019 Instruction Type:Patient Education How to access health informa tion online - Detail Indication:Nonsmoker Start:22-Jul-2019 Instruction Type:Patient Education Patient Instructions Indication:BMI 29.0-29.9,adult Start:22-Jul-2019 Instruction Type:Provider Instructions for Treatment How to access health informa tion online Indication:BMI 29.0-29.9,adult Start:07-Apr-2019 Instruction Type:Patient Education How to access health informa tion online - Detail Indication:BMI 29.0-29.9,adult Start:07-Apr-2019 Instruction Type:Patient Education Patient Instructions Indication:Hand injury, left, initial encounter Start:07-Apr-2019 Instruction Type:Provider Instructions for Treatment How to access health informa tion online - Detail Indication:Nonsmoker Start:06-Sep-2018 Instruction Type:Patient Education How to access health informa tion online Indication:Nonsmoker Start:06-Sep-2018 Instruction Type:Patient Education Patient Instructions Indication:Alzheimer's dementia Start:06-Sep-2018 Instruction Type:Provider Instructions for Treatment How to access health informa tion online Indication:Nonsmoker Start:10-May-2018 Instruction Type:Patient Education How to access health informa tion online - Detail Indication:Nonsmoker Start:10-May-2018 Instruction Type:Patient Education Patient Instructions Indication:BMI 28.0-28.9,adult Start:10-May-2018 Instruction Type:Provider Instructions for Treatment How to access health informa tion online Indication:Nonsmoker Start:15-Jan-2018 Instruction Type:Patient Education How to access health informa tion online - Detail Indication:Nonsmoker Start:15-Jan-2018 Instruction Type:Patient Education Patient Instructions Indication:Nonsmoker Start:15-Jan-2018 Instruction Type:Provider Instructions for Treatment How to access health informa tion online Indication:Nonsmoker Start:18-Dec-2017 Instruction Type:Patient Education How to access health informa tion online - Detail Indication:Nonsmoker Start:18-Dec-2017 Instruction Type:Patient Education Patient Instructions Indication:BMI 28.0-28.9,adult Start:18-Dec-2017 Instruction Type:Provider Instructions for Treatment How to access health informa tion online Indication:Hypercholesteremia Start:07-Aug-2017 Instruction Type:Patient Education How to access health informa tion online - Detail Indication:Hypercholesteremia Start:07-Aug-2017 Instruction Type:Patient Education Patient Instructions Indication:Hypercholesteremia Start:07-Aug-2017 Instruction Type:Provider Instructions for Treatment How to access health informa tion online Indication:Essential hypertension Start:12-Jun-2017 Instruction Type:Patient Education How to access health informa tion online - Detail Indication:Essential hypertension Start:12-Jun-2017 Instruction Type:Patient Education Patient Instructions Indication:Essential hypertension Start:12-Jun-2017 Instruction Type:Provider Instructions for Treatment How to access health informa tion online Indication:Essential hypertension Start:06-Apr-2017 Instruction Type:Patient Education How to access health informa tion online - Detail Indication:Essential hypertension Start:06-Apr-2017 Instruction Type:Patient Education Patient Instructions Indication:Encounter for screening mammogram for breast cancer (Renamed from Encounter for screening mammogram for malignant neoplasm of breast) Start:06-Apr-2017 Instruction Type:Provider Instructions for Treatment Patient Instructions Indication:Vitamin D deficiency Start:27-Nov-2016 Instruction Type:Provider Instructions for Treatment DISCONTINUED - LIPID PANEL ( [id number]) Indication:Atherosclerotic plaque Start:27-Nov-2016 Instruction Type:Patient Education DISCONTINUED - LIPID PANEL ( [id number]) Indication:Other and unspecified hyperlipidemia Start:27-Nov-2016 Instruction Type:Patient Education DISCONTINUED - METABOLIC STRAUSS EL, COMPREHENSIVE ([id number]) Indication:Essential hypertension Start:27-Nov-2016 Instruction Type:Patient Education How to access health informa tion online Indication:Essential hypertension Start:27-Nov-2016 Instruction Type:Patient Education How to access health informa tion online - Detail Indication:Essential hypertension Start:27-Nov-2016 Instruction Type:Patient Education Patient Instructions Indication:Essential hypertension Start:27-Nov-2016 Instruction Type:Provider Instructions for Treatment How to access health informa tion online Indication:Neck pain Start:02-Aug-2016 Instruction Type:Patient Education How to access health informa tion online - Detail Indication:Neck pain Start:02-Aug-2016 Instruction Type:Patient Education Patient Instructions Indication:BMI 27.0-27.9,adult Start:02-Aug-2016 Instruction Type:Provider Instructions for Treatment Patient Instructions Indication:Carotid stenosis, symptomatic w/o infarct, right Start:12-Apr-2016 Instruction Type:Provider Instructions for Treatment How to access health informa tion online Indication:UTI symptoms Start:22-Mar-2016 Instruction Type:Patient Education How to access health informa tion online - Detail Indication:UTI symptoms Start:22-Mar-2016 Instruction Type:Patient Education Patient Instructions Indication:UTI symptoms Start:22-Mar-2016 Instruction Type:Provider Instructions for Treatment How to access health informa tion online Indication:Essential hypertension Start:15-Mar-2016 Instruction Type:Patient Education How to access health informa tion online - Detail Indication:Essential hypertension Start:15-Mar-2016 Instruction Type:Patient Education Patient Instructions Indication:Essential hypertension Start:15-Mar-2016 Instruction Type:Provider Instructions for Treatment How to access health informa tion online Indication:Right sided abdominal pain Start:05-Apr-2015 Instruction Type:Patient Education How to access health informa tion online - Detail Indication:Right sided abdominal pain Start:05-Apr-2015 Instruction Type:Patient Education Patient Instructions Indication:Right sided abdominal pain Start:05-Apr-2015 Instruction Type:Provider Instructions for Treatment How to access health informa tion online Indication:Headache Start:12-Feb-2015 Instruction Type:Patient Education How to access health informa tion online - Detail Indication:Headache Start:12-Feb-2015 Instruction Type:Patient Education Patient Instructions Indication:Headache Start:12-Feb-2015 Instruction Type:Provider Instructions for Treatment How to access health informa tion online Indication:Abdominal pain Start:06-Nov-2014 Instruction Type:Patient Education How to access health informa tion online - Detail Indication:Abdominal pain Start:06-Nov-2014 Instruction Type:Patient Education Patient Instructions Indication:Abdominal pain Start:06-Nov-2014 Instruction Type:Provider Instructions for Treatment Patient Instructions Indication:Chronic cough Start:27-May-2013 Instruction Type:Provider Instructions for Treatment Patient Instructions Indication:Essential hypertension Start:12-Mar-2013 Instruction Type:Provider Instructions for Treatment Patient Instructions Indication:Essential hypertension Start:26-Nov-2012 Instruction Type:Provider Instructions for Treatment Patient Instructions Indication:Essential hypertension Start:17-Jan-2012 Instruction Type:Provider Instructions for Treatment [facility]; [facility] Work Phone: Instructions* Name Dates Details How to Access Health Informa tion Online using Patient Portal and [employer]rd [employer] Apps Indication:Nonsmoker Start:31-Jan-2022 Instruction Type:Patient Education Patient Instructions Indication:Nonsmoker Start:31-Jan-2022 Instruction Type:Provider Instructions for Treatment Patient Instructions Indication:Nonsmoker Start:23-Sep-2021 Instruction Type:Provider Instructions for Treatment How to Access Health Informa tion Online using Patient Portal and [employer] Apps Indication:Nonsmoker Start:23-Sep-2021 Instruction Type:Patient Education Patient Instructions Indication:Nonsmoker Start:05-Apr-2021 Instruction Type:Provider Instructions for Treatment How to Access Health Informa tion Online using Patient Portal and [employer] Apps Indication:Nonsmoker Start:05-Apr-2021 Instruction Type:Patient Education Patient Instructions Indication:Nonsmoker Start:24-Dec-2020 Instruction Type:Provider Instructions for Treatment How to Access Health Informa tion Online using Patient Portal and [employer] Apps Indication:Nonsmoker Start:24-Dec-2020 Instruction Type:Patient Education Patient Instructions Indication:Nonsmoker Start:17-Sep-2020 Instruction Type:Provider Instructions for Treatment How to Access Health Informa tion Online using Patient Portal and [employer] Apps Indication:Nonsmoker Start:17-Sep-2020 Instruction Type:Patient Education Patient Instructions Indication:Nonsmoker Start:25-May-2020 Instruction Type:Provider Instructions for Treatment How to Access Health Informa tion Online using Patient Portal and [employer] Apps Indication:Nonsmoker Start:25-May-2020 Instruction Type:Patient Education How to access health informa tion online Indication:Nonsmoker Start:23-Jan-2020 Instruction Type:Patient Education How to access health informa tion online - Detail Indication:Nonsmoker Start:23-Jan-2020 Instruction Type:Patient Education Patient Instructions Indication:BMI 30.0-30.9,adult Start:23-Jan-2020 Instruction Type:Provider Instructions for Treatment How to access health informa tion online Indication:Nonsmoker Start:22-Jul-2019 Instruction Type:Patient Education How to access health informa tion online - Detail Indication:Nonsmoker Start:22-Jul-2019 Instruction Type:Patient Education Patient Instructions Indication:BMI 29.0-29.9,adult Start:22-Jul-2019 Instruction Type:Provider Instructions for Treatment How to access health informa tion online Indication:BMI 29.0-29.9,adult Start:07-Apr-2019 Instruction Type:Patient Education How to access health informa tion online - Detail Indication:BMI 29.0-29.9,adult Start:07-Apr-2019 Instruction Type:Patient Education Patient Instructions Indication:Hand injury, left, initial encounter Start:07-Apr-2019 Instruction Type:Provider Instructions for Treatment How to access health informa tion online - Detail Indication:Nonsmoker Start:06-Sep-2018 Instruction Type:Patient Education How to access health informa tion online Indication:Nonsmoker Start:06-Sep-2018 Instruction Type:Patient Education Patient Instructions Indication:Alzheimer's dementia Start:06-Sep-2018 Instruction Type:Provider Instructions for Treatment How to access health informa tion online Indication:Nonsmoker Start:10-May-2018 Instruction Type:Patient Education How to access health informa tion online - Detail Indication:Nonsmoker Start:10-May-2018 Instruction Type:Patient Education Patient Instructions Indication:BMI 28.0-28.9,adult Start:10-May-2018 Instruction Type:Provider Instructions for Treatment How to access health informa tion online Indication:Nonsmoker Start:15-Jan-2018 Instruction Type:Patient Education How to access health informa tion online - Detail Indication:Nonsmoker Start:15-Jan-2018 Instruction Type:Patient Education Patient Instructions Indication:Nonsmoker Start:15-Jan-2018 Instruction Type:Provider Instructions for Treatment How to access health informa tion online Indication:Nonsmoker Start:18-Dec-2017 Instruction Type:Patient Education How to access health informa tion online - Detail Indication:Nonsmoker Start:18-Dec-2017 Instruction Type:Patient Education Patient Instructions Indication:BMI 28.0-28.9,adult Start:18-Dec-2017 Instruction Type:Provider Instructions for Treatment How to access health informa tion online Indication:Hypercholesteremia Start:07-Aug-2017 Instruction Type:Patient Education How to access health informa tion online - Detail Indication:Hypercholesteremia Start:07-Aug-2017 Instruction Type:Patient Education Patient Instructions Indication:Hypercholesteremia Start:07-Aug-2017 Instruction Type:Provider Instructions for Treatment How to access health informa tion online Indication:Essential hypertension Start:12-Jun-2017 Instruction Type:Patient Education How to access health informa tion online - Detail Indication:Essential hypertension Start:12-Jun-2017 Instruction Type:Patient Education Patient Instructions Indication:Essential hypertension Start:12-Jun-2017 Instruction Type:Provider Instructions for Treatment How to access health informa tion online Indication:Essential hypertension Start:06-Apr-2017 Instruction Type:Patient Education How to access health informa tion online - Detail Indication:Essential hypertension Start:06-Apr-2017 Instruction Type:Patient Education Patient Instructions Indication:Encounter for screening mammogram for breast cancer (Renamed from Encounter for screening mammogram for malignant neoplasm of breast) Start:06-Apr-2017 Instruction Type:Provider Instructions for Treatment Patient Instructions Indication:Vitamin D deficiency Start:27-Nov-2016 Instruction Type:Provider Instructions for Treatment DISCONTINUED - LIPID PANEL ( [id number]) Indication:Atherosclerotic plaque Start:27-Nov-2016 Instruction Type:Patient Education DISCONTINUED - LIPID PANEL ( [id number]) Indication:Other and unspecified hyperlipidemia Start:27-Nov-2016 Instruction Type:Patient Education DISCONTINUED - METABOLIC STRAUSS EL, COMPREHENSIVE ([id number]) Indication:Essential hypertension Start:27-Nov-2016 Instruction Type:Patient Education How to access health informa tion online Indication:Essential hypertension Start:27-Nov-2016 Instruction Type:Patient Education How to access health informa tion online - Detail Indication:Essential hypertension Start:27-Nov-2016 Instruction Type:Patient Education Patient Instructions Indication:Essential hypertension Start:27-Nov-2016 Instruction Type:Provider Instructions for Treatment How to access health informa tion online Indication:Neck pain Start:02-Aug-2016 Instruction Type:Patient Education How to access health informa tion online - Detail Indication:Neck pain Start:02-Aug-2016 Instruction Type:Patient Education Patient Instructions Indication:BMI 27.0-27.9,adult Start:02-Aug-2016 Instruction Type:Provider Instructions for Treatment Patient Instructions Indication:Carotid stenosis, symptomatic w/o infarct, right Start:12-Apr-2016 Instruction Type:Provider Instructions for Treatment How to access health informa tion online Indication:UTI symptoms Start:22-Mar-2016 Instruction Type:Patient Education How to access health informa tion online - Detail Indication:UTI symptoms Start:22-Mar-2016 Instruction Type:Patient Education Patient Instructions Indication:UTI symptoms Start:22-Mar-2016 Instruction Type:Provider Instructions for Treatment How to access health informa tion online Indication:Essential hypertension Start:15-Mar-2016 Instruction Type:Patient Education How to access health informa tion online - Detail Indication:Essential hypertension Start:15-Mar-2016 Instruction Type:Patient Education Patient Instructions Indication:Essential hypertension Start:15-Mar-2016 Instruction Type:Provider Instructions for Treatment How to access health informa tion online Indication:Right sided abdominal pain Start:05-Apr-2015 Instruction Type:Patient Education How to access health informa tion online - Detail Indication:Right sided abdominal pain Start:05-Apr-2015 Instruction Type:Patient Education Patient Instructions Indication:Right sided abdominal pain Start:05-Apr-2015 Instruction Type:Provider Instructions for Treatment How to access health informa tion online Indication:Headache Start:12-Feb-2015 Instruction Type:Patient Education How to access health informa tion online - Detail Indication:Headache Start:12-Feb-2015 Instruction Type:Patient Education Patient Instructions Indication:Headache Start:12-Feb-2015 Instruction Type:Provider Instructions for Treatment How to access health informa tion online Indication:Abdominal pain Start:06-Nov-2014 Instruction Type:Patient Education How to access health informa tion online - Detail Indication:Abdominal pain Start:06-Nov-2014 Instruction Type:Patient Education Patient Instructions Indication:Abdominal pain Start:06-Nov-2014 Instruction Type:Provider Instructions for Treatment Patient Instructions Indication:Chronic cough Start:27-May-2013 Instruction Type:Provider Instructions for Treatment Patient Instructions Indication:Essential hypertension Start:12-Mar-2013 Instruction Type:Provider Instructions for Treatment Patient Instructions Indication:Essential hypertension Start:26-Nov-2012 Instruction Type:Provider Instructions for Treatment Patient Instructions Indication:Essential hypertension Start:17-Jan-2012 Instruction Type:Provider Instructions for Treatment [facility]; [facility] Work Phone: Instructions* Name Dates Details How to Access Health Informa tion Online using Patient Portal and [employer] Apps Indication:BMI 30.0-30.9,adult Start:17-Mar-2022 Instruction Type:Patient Education Patient Instructions Indication:BMI 30.0-30.9,adult Start:17-Mar-2022 Instruction Type:Provider Instructions for Treatment How to Access Health Informa tion Online using Patient Portal and [employer] Apps Indication:Nonsmoker Start:31-Jan-2022 Instruction Type:Patient Education Patient Instructions Indication:Nonsmoker Start:31-Jan-2022 Instruction Type:Provider Instructions for Treatment Patient Instructions Indication:Nonsmoker Start:23-Sep-2021 Instruction Type:Provider Instructions for Treatment How to Access Health Informa tion Online using Patient Portal and [employer] Apps Indication:Nonsmoker Start:23-Sep-2021 Instruction Type:Patient Education Patient Instructions Indication:Nonsmoker Start:05-Apr-2021 Instruction Type:Provider Instructions for Treatment How to Access Health Informa tion Online using Patient Portal and [employer]rd [employer] Apps Indication:Nonsmoker Start:05-Apr-2021 Instruction Type:Patient Education Patient Instructions Indication:Nonsmoker Start:24-Dec-2020 Instruction Type:Provider Instructions for Treatment How to Access Health Informa tion Online using Patient Portal and [employer]rd [employer] Apps Indication:Nonsmoker Start:24-Dec-2020 Instruction Type:Patient Education Patient Instructions Indication:Nonsmoker Start:17-Sep-2020 Instruction Type:Provider Instructions for Treatment How to Access Health Informa tion Online using Patient Portal and [employer] Apps Indication:Nonsmoker Start:17-Sep-2020 Instruction Type:Patient Education Patient Instructions Indication:Nonsmoker Start:25-May-2020 Instruction Type:Provider Instructions for Treatment How to Access Health Informa tion Online using Patient Portal and [employer] Apps Indication:Nonsmoker Start:25-May-2020 Instruction Type:Patient Education How to access health informa tion online Indication:Nonsmoker Start:23-Jan-2020 Instruction Type:Patient Education How to access health informa tion online - Detail Indication:Nonsmoker Start:23-Jan-2020 Instruction Type:Patient Education Patient Instructions Indication:BMI 30.0-30.9,adult Start:23-Jan-2020 Instruction Type:Provider Instructions for Treatment How to access health informa tion online Indication:Nonsmoker Start:22-Jul-2019 Instruction Type:Patient Education How to access health informa tion online - Detail Indication:Nonsmoker Start:22-Jul-2019 Instruction Type:Patient Education Patient Instructions Indication:BMI 29.0-29.9,adult Start:22-Jul-2019 Instruction Type:Provider Instructions for Treatment How to access health informa tion online Indication:BMI 29.0-29.9,adult Start:07-Apr-2019 Instruction Type:Patient Education How to access health informa tion online - Detail Indication:BMI 29.0-29.9,adult Start:07-Apr-2019 Instruction Type:Patient Education Patient Instructions Indication:Hand injury, left, initial encounter Start:07-Apr-2019 Instruction Type:Provider Instructions for Treatment How to access health informa tion online - Detail Indication:Nonsmoker Start:06-Sep-2018 Instruction Type:Patient Education How to access health informa tion online Indication:Nonsmoker Start:06-Sep-2018 Instruction Type:Patient Education Patient Instructions Indication:Alzheimer's dementia Start:06-Sep-2018 Instruction Type:Provider Instructions for Treatment How to access health informa tion online Indication:Nonsmoker Start:10-May-2018 Instruction Type:Patient Education How to access health informa tion online - Detail Indication:Nonsmoker Start:10-May-2018 Instruction Type:Patient Education Patient Instructions Indication:BMI 28.0-28.9,adult Start:10-May-2018 Instruction Type:Provider Instructions for Treatment How to access health informa tion online Indication:Nonsmoker Start:15-Jan-2018 Instruction Type:Patient Education How to access health informa tion online - Detail Indication:Nonsmoker Start:15-Jan-2018 Instruction Type:Patient Education Patient Instructions Indication:Nonsmoker Start:15-Jan-2018 Instruction Type:Provider Instructions for Treatment How to access health informa tion online Indication:Nonsmoker Start:18-Dec-2017 Instruction Type:Patient Education How to access health informa tion online - Detail Indication:Nonsmoker Start:18-Dec-2017 Instruction Type:Patient Education Patient Instructions Indication:BMI 28.0-28.9,adult Start:18-Dec-2017 Instruction Type:Provider Instructions for Treatment How to access health informa tion online Indication:Hypercholesteremia Start:07-Aug-2017 Instruction Type:Patient Education How to access health informa tion online - Detail Indication:Hypercholesteremia Start:07-Aug-2017 Instruction Type:Patient Education Patient Instructions Indication:Hypercholesteremia Start:07-Aug-2017 Instruction Type:Provider Instructions for Treatment How to access health informa tion online Indication:Essential hypertension Start:12-Jun-2017 Instruction Type:Patient Education How to access health informa tion online - Detail Indication:Essential hypertension Start:12-Jun-2017 Instruction Type:Patient Education Patient Instructions Indication:Essential hypertension Start:12-Jun-2017 Instruction Type:Provider Instructions for Treatment How to access health informa tion online Indication:Essential hypertension Start:06-Apr-2017 Instruction Type:Patient Education How to access health informa tion online - Detail Indication:Essential hypertension Start:06-Apr-2017 Instruction Type:Patient Education Patient Instructions Indication:Encounter for screening mammogram for breast cancer (Renamed from Encounter for screening mammogram for malignant neoplasm of breast) Start:06-Apr-2017 Instruction Type:Provider Instructions for Treatment Patient Instructions Indication:Vitamin D deficiency Start:27-Nov-2016 Instruction Type:Provider Instructions for Treatment DISCONTINUED - LIPID PANEL ( [id number]) Indication:Atherosclerotic plaque Start:27-Nov-2016 Instruction Type:Patient Education DISCONTINUED - LIPID PANEL ( [id number]) Indication:Other and unspecified hyperlipidemia Start:27-Nov-2016 Instruction Type:Patient Education DISCONTINUED - METABOLIC STRAUSS EL, COMPREHENSIVE ([id number]) Indication:Essential hypertension Start:27-Nov-2016 Instruction Type:Patient Education How to access health informa tion online Indication:Essential hypertension Start:27-Nov-2016 Instruction Type:Patient Education How to access health informa tion online - Detail Indication:Essential hypertension Start:27-Nov-2016 Instruction Type:Patient Education Patient Instructions Indication:Essential hypertension Start:27-Nov-2016 Instruction Type:Provider Instructions for Treatment How to access health informa tion online Indication:Neck pain Start:02-Aug-2016 Instruction Type:Patient Education How to access health informa tion online - Detail Indication:Neck pain Start:02-Aug-2016 Instruction Type:Patient Education Patient Instructions Indication:BMI 27.0-27.9,adult Start:02-Aug-2016 Instruction Type:Provider Instructions for Treatment Patient Instructions Indication:Carotid stenosis, symptomatic w/o infarct, right Start:12-Apr-2016 Instruction Type:Provider Instructions for Treatment How to access health informa tion online Indication:UTI symptoms Start:22-Mar-2016 Instruction Type:Patient Education How to access health informa tion online - Detail Indication:UTI symptoms Start:22-Mar-2016 Instruction Type:Patient Education Patient Instructions Indication:UTI symptoms Start:22-Mar-2016 Instruction Type:Provider Instructions for Treatment How to access health informa tion online Indication:Essential hypertension Start:15-Mar-2016 Instruction Type:Patient Education How to access health informa tion online - Detail Indication:Essential hypertension Start:15-Mar-2016 Instruction Type:Patient Education Patient Instructions Indication:Essential hypertension Start:15-Mar-2016 Instruction Type:Provider Instructions for Treatment How to access health informa tion online Indication:Right sided abdominal pain Start:05-Apr-2015 Instruction Type:Patient Education How to access health informa tion online - Detail Indication:Right sided abdominal pain Start:05-Apr-2015 Instruction Type:Patient Education Patient Instructions Indication:Right sided abdominal pain Start:05-Apr-2015 Instruction Type:Provider Instructions for Treatment How to access health informa tion online Indication:Headache Start:12-Feb-2015 Instruction Type:Patient Education How to access health informa tion online - Detail Indication:Headache Start:12-Feb-2015 Instruction Type:Patient Education Patient Instructions Indication:Headache Start:12-Feb-2015 Instruction Type:Provider Instructions for Treatment How to access health informa tion online Indication:Abdominal pain Start:06-Nov-2014 Instruction Type:Patient Education How to access health informa tion online - Detail Indication:Abdominal pain Start:06-Nov-2014 Instruction Type:Patient Education Patient Instructions Indication:Abdominal pain Start:06-Nov-2014 Instruction Type:Provider Instructions for Treatment Patient Instructions Indication:Chronic cough Start:27-May-2013 Instruction Type:Provider Instructions for Treatment Patient Instructions Indication:Essential hypertension Start:12-Mar-2013 Instruction Type:Provider Instructions for Treatment Patient Instructions Indication:Essential hypertension Start:26-Nov-2012 Instruction Type:Provider Instructions for Treatment Patient Instructions Indication:Essential hypertension Start:17-Jan-2012 Instruction Type:Provider Instructions for Treatment [facility]; [facility] Work Phone: Instructions* Name Dates Details How to Access Health Informa tion Online using Patient Portal and [employer] Apps Indication:BMI 30.0-30.9,adult Start:17-Mar-2022 Instruction Type:Patient Education Patient Instructions Indication:BMI 30.0-30.9,adult Start:17-Mar-2022 Instruction Type:Provider Instructions for Treatment How to Access Health Informa tion Online using Patient Portal and [employer] Apps Indication:Nonsmoker Start:31-Jan-2022 Instruction Type:Patient Education Patient Instructions Indication:Nonsmoker Start:31-Jan-2022 Instruction Type:Provider Instructions for Treatment Patient Instructions Indication:Nonsmoker Start:23-Sep-2021 Instruction Type:Provider Instructions for Treatment How to Access Health Informa tion Online using Patient Portal and [employer] Apps Indication:Nonsmoker Start:23-Sep-2021 Instruction Type:Patient Education Patient Instructions Indication:Nonsmoker Start:05-Apr-2021 Instruction Type:Provider Instructions for Treatment How to Access Health Informa tion Online using Patient Portal and [employer] Apps Indication:Nonsmoker Start:05-Apr-2021 Instruction Type:Patient Education Patient Instructions Indication:Nonsmoker Start:24-Dec-2020 Instruction Type:Provider Instructions for Treatment How to Access Health Informa tion Online using Patient Portal and [employer] Apps Indication:Nonsmoker Start:24-Dec-2020 Instruction Type:Patient Education Patient Instructions Indication:Nonsmoker Start:17-Sep-2020 Instruction Type:Provider Instructions for Treatment How to Access Health Informa tion Online using Patient Portal and [employer] Apps Indication:Nonsmoker Start:17-Sep-2020 Instruction Type:Patient Education Patient Instructions Indication:Nonsmoker Start:25-May-2020 Instruction Type:Provider Instructions for Treatment How to Access Health Informa tion Online using Patient Portal and [employer] Apps Indication:Nonsmoker Start:25-May-2020 Instruction Type:Patient Education How to access health informa tion online Indication:Nonsmoker Start:23-Jan-2020 Instruction Type:Patient Education How to access health informa tion online - Detail Indication:Nonsmoker Start:23-Jan-2020 Instruction Type:Patient Education Patient Instructions Indication:BMI 30.0-30.9,adult Start:23-Jan-2020 Instruction Type:Provider Instructions for Treatment How to access health informa tion online Indication:Nonsmoker Start:22-Jul-2019 Instruction Type:Patient Education How to access health informa tion online - Detail Indication:Nonsmoker Start:22-Jul-2019 Instruction Type:Patient Education Patient Instructions Indication:BMI 29.0-29.9,adult Start:22-Jul-2019 Instruction Type:Provider Instructions for Treatment How to access health informa tion online Indication:BMI 29.0-29.9,adult Start:07-Apr-2019 Instruction Type:Patient Education How to access health informa tion online - Detail Indication:BMI 29.0-29.9,adult Start:07-Apr-2019 Instruction Type:Patient Education Patient Instructions Indication:Hand injury, left, initial encounter Start:07-Apr-2019 Instruction Type:Provider Instructions for Treatment How to access health informa tion online - Detail Indication:Nonsmoker Start:06-Sep-2018 Instruction Type:Patient Education How to access health informa tion online Indication:Nonsmoker Start:06-Sep-2018 Instruction Type:Patient Education Patient Instructions Indication:Alzheimer's dementia Start:06-Sep-2018 Instruction Type:Provider Instructions for Treatment How to access health informa tion online Indication:Nonsmoker Start:10-May-2018 Instruction Type:Patient Education How to access health informa tion online - Detail Indication:Nonsmoker Start:10-May-2018 Instruction Type:Patient Education Patient Instructions Indication:BMI 28.0-28.9,adult Start:10-May-2018 Instruction Type:Provider Instructions for Treatment How to access health informa tion online Indication:Nonsmoker Start:15-Jan-2018 Instruction Type:Patient Education How to access health informa tion online - Detail Indication:Nonsmoker Start:15-Jan-2018 Instruction Type:Patient Education Patient Instructions Indication:Nonsmoker Start:15-Jan-2018 Instruction Type:Provider Instructions for Treatment How to access health informa tion online Indication:Nonsmoker Start:18-Dec-2017 Instruction Type:Patient Education How to access health informa tion online - Detail Indication:Nonsmoker Start:18-Dec-2017 Instruction Type:Patient Education Patient Instructions Indication:BMI 28.0-28.9,adult Start:18-Dec-2017 Instruction Type:Provider Instructions for Treatment How to access health informa tion online Indication:Hypercholesteremia Start:07-Aug-2017 Instruction Type:Patient Education How to access health informa tion online - Detail Indication:Hypercholesteremia Start:07-Aug-2017 Instruction Type:Patient Education Patient Instructions Indication:Hypercholesteremia Start:07-Aug-2017 Instruction Type:Provider Instructions for Treatment How to access health informa tion online Indication:Essential hypertension Start:12-Jun-2017 Instruction Type:Patient Education How to access health informa tion online - Detail Indication:Essential hypertension Start:12-Jun-2017 Instruction Type:Patient Education Patient Instructions Indication:Essential hypertension Start:12-Jun-2017 Instruction Type:Provider Instructions for Treatment How to access health informa tion online Indication:Essential hypertension Start:06-Apr-2017 Instruction Type:Patient Education How to access health informa tion online - Detail Indication:Essential hypertension Start:06-Apr-2017 Instruction Type:Patient Education Patient Instructions Indication:Encounter for screening mammogram for breast cancer (Renamed from Encounter for screening mammogram for malignant neoplasm of breast) Start:06-Apr-2017 Instruction Type:Provider Instructions for Treatment Patient Instructions Indication:Vitamin D deficiency Start:27-Nov-2016 Instruction Type:Provider Instructions for Treatment DISCONTINUED - LIPID PANEL ( [id number]) Indication:Atherosclerotic plaque Start:27-Nov-2016 Instruction Type:Patient Education DISCONTINUED - LIPID PANEL ( [id number]) Indication:Other and unspecified hyperlipidemia Start:27-Nov-2016 Instruction Type:Patient Education DISCONTINUED - METABOLIC STRAUSS EL, COMPREHENSIVE ([id number]) Indication:Essential hypertension Start:27-Nov-2016 Instruction Type:Patient Education How to access health informa tion online Indication:Essential hypertension Start:27-Nov-2016 Instruction Type:Patient Education How to access health informa tion online - Detail Indication:Essential hypertension Start:27-Nov-2016 Instruction Type:Patient Education Patient Instructions Indication:Essential hypertension Start:27-Nov-2016 Instruction Type:Provider Instructions for Treatment How to access health informa tion online Indication:Neck pain Start:02-Aug-2016 Instruction Type:Patient Education How to access health informa tion online - Detail Indication:Neck pain Start:02-Aug-2016 Instruction Type:Patient Education Patient Instructions Indication:BMI 27.0-27.9,adult Start:02-Aug-2016 Instruction Type:Provider Instructions for Treatment Patient Instructions Indication:Carotid stenosis, symptomatic w/o infarct, right Start:12-Apr-2016 Instruction Type:Provider Instructions for Treatment How to access health informa tion online Indication:UTI symptoms Start:22-Mar-2016 Instruction Type:Patient Education How to access health informa tion online - Detail Indication:UTI symptoms Start:22-Mar-2016 Instruction Type:Patient Education Patient Instructions Indication:UTI symptoms Start:22-Mar-2016 Instruction Type:Provider Instructions for Treatment How to access health informa tion online Indication:Essential hypertension Start:15-Mar-2016 Instruction Type:Patient Education How to access health informa tion online - Detail Indication:Essential hypertension Start:15-Mar-2016 Instruction Type:Patient Education Patient Instructions Indication:Essential hypertension Start:15-Mar-2016 Instruction Type:Provider Instructions for Treatment How to access health informa tion online Indication:Right sided abdominal pain Start:05-Apr-2015 Instruction Type:Patient Education How to access health informa tion online - Detail Indication:Right sided abdominal pain Start:05-Apr-2015 Instruction Type:Patient Education Patient Instructions Indication:Right sided abdominal pain Start:05-Apr-2015 Instruction Type:Provider Instructions for Treatment How to access health informa tion online Indication:Headache Start:12-Feb-2015 Instruction Type:Patient Education How to access health informa tion online - Detail Indication:Headache Start:12-Feb-2015 Instruction Type:Patient Education Patient Instructions Indication:Headache Start:12-Feb-2015 Instruction Type:Provider Instructions for Treatment How to access health informa tion online Indication:Abdominal pain Start:06-Nov-2014 Instruction Type:Patient Education How to access health informa tion online - Detail Indication:Abdominal pain Start:06-Nov-2014 Instruction Type:Patient Education Patient Instructions Indication:Abdominal pain Start:06-Nov-2014 Instruction Type:Provider Instructions for Treatment Patient Instructions Indication:Chronic cough Start:27-May-2013 Instruction Type:Provider Instructions for Treatment Patient Instructions Indication:Essential hypertension Start:12-Mar-2013 Instruction Type:Provider Instructions for Treatment Patient Instructions Indication:Essential hypertension Start:26-Nov-2012 Instruction Type:Provider Instructions for Treatment Patient Instructions Indication:Essential hypertension Start:17-Jan-2012 Instruction Type:Provider Instructions for Treatment [facility]; [facility] Work Phone: Instructions* Name Dates Details How to Access Health Informa tion Online using Patient Portal and [employer] Apps Indication:BMI 30.0-30.9,adult Start:17-Mar-2022 Instruction Type:Patient Education Patient Instructions Indication:BMI 30.0-30.9,adult Start:17-Mar-2022 Instruction Type:Provider Instructions for Treatment How to Access Health Informa tion Online using Patient Portal and [employer] Apps Indication:Nonsmoker Start:31-Jan-2022 Instruction Type:Patient Education Patient Instructions Indication:Nonsmoker Start:31-Jan-2022 Instruction Type:Provider Instructions for Treatment Patient Instructions Indication:Nonsmoker Start:23-Sep-2021 Instruction Type:Provider Instructions for Treatment How to Access Health Informa tion Online using Patient Portal and [employer] Apps Indication:Nonsmoker Start:23-Sep-2021 Instruction Type:Patient Education Patient Instructions Indication:Nonsmoker Start:05-Apr-2021 Instruction Type:Provider Instructions for Treatment How to Access Health Informa tion Online using Patient Portal and [employer] Apps Indication:Nonsmoker Start:05-Apr-2021 Instruction Type:Patient Education Patient Instructions Indication:Nonsmoker Start:24-Dec-2020 Instruction Type:Provider Instructions for Treatment How to Access Health Informa tion Online using Patient Portal and [employer] Apps Indication:Nonsmoker Start:24-Dec-2020 Instruction Type:Patient Education Patient Instructions Indication:Nonsmoker Start:17-Sep-2020 Instruction Type:Provider Instructions for Treatment How to Access Health Informa tion Online using Patient Portal and [employer] Apps Indication:Nonsmoker Start:17-Sep-2020 Instruction Type:Patient Education Patient Instructions Indication:Nonsmoker Start:25-May-2020 Instruction Type:Provider Instructions for Treatment How to Access Health Informa tion Online using Patient Portal and [employer] Apps Indication:Nonsmoker Start:25-May-2020 Instruction Type:Patient Education How to access health informa tion online Indication:Nonsmoker Start:23-Jan-2020 Instruction Type:Patient Education How to access health informa tion online - Detail Indication:Nonsmoker Start:23-Jan-2020 Instruction Type:Patient Education Patient Instructions Indication:BMI 30.0-30.9,adult Start:23-Jan-2020 Instruction Type:Provider Instructions for Treatment How to access health informa tion online Indication:Nonsmoker Start:22-Jul-2019 Instruction Type:Patient Education How to access health informa tion online - Detail Indication:Nonsmoker Start:22-Jul-2019 Instruction Type:Patient Education Patient Instructions Indication:BMI 29.0-29.9,adult Start:22-Jul-2019 Instruction Type:Provider Instructions for Treatment How to access health informa tion online Indication:BMI 29.0-29.9,adult Start:07-Apr-2019 Instruction Type:Patient Education How to access health informa tion online - Detail Indication:BMI 29.0-29.9,adult Start:07-Apr-2019 Instruction Type:Patient Education Patient Instructions Indication:Hand injury, left, initial encounter Start:07-Apr-2019 Instruction Type:Provider Instructions for Treatment How to access health informa tion online - Detail Indication:Nonsmoker Start:06-Sep-2018 Instruction Type:Patient Education How to access health informa tion online Indication:Nonsmoker Start:06-Sep-2018 Instruction Type:Patient Education Patient Instructions Indication:Alzheimer's dementia Start:06-Sep-2018 Instruction Type:Provider Instructions for Treatment How to access health informa tion online Indication:Nonsmoker Start:10-May-2018 Instruction Type:Patient Education How to access health informa tion online - Detail Indication:Nonsmoker Start:10-May-2018 Instruction Type:Patient Education Patient Instructions Indication:BMI 28.0-28.9,adult Start:10-May-2018 Instruction Type:Provider Instructions for Treatment How to access health informa tion online Indication:Nonsmoker Start:15-Jan-2018 Instruction Type:Patient Education How to access health informa tion online - Detail Indication:Nonsmoker Start:15-Jan-2018 Instruction Type:Patient Education Patient Instructions Indication:Nonsmoker Start:15-Jan-2018 Instruction Type:Provider Instructions for Treatment How to access health informa tion online Indication:Nonsmoker Start:18-Dec-2017 Instruction Type:Patient Education How to access health informa tion online - Detail Indication:Nonsmoker Start:18-Dec-2017 Instruction Type:Patient Education Patient Instructions Indication:BMI 28.0-28.9,adult Start:18-Dec-2017 Instruction Type:Provider Instructions for Treatment How to access health informa tion online Indication:Hypercholesteremia Start:07-Aug-2017 Instruction Type:Patient Education How to access health informa tion online - Detail Indication:Hypercholesteremia Start:07-Aug-2017 Instruction Type:Patient Education Patient Instructions Indication:Hypercholesteremia Start:07-Aug-2017 Instruction Type:Provider Instructions for Treatment How to access health informa tion online Indication:Essential hypertension Start:12-Jun-2017 Instruction Type:Patient Education How to access health informa tion online - Detail Indication:Essential hypertension Start:12-Jun-2017 Instruction Type:Patient Education Patient Instructions Indication:Essential hypertension Start:12-Jun-2017 Instruction Type:Provider Instructions for Treatment How to access health informa tion online Indication:Essential hypertension Start:06-Apr-2017 Instruction Type:Patient Education How to access health informa tion online - Detail Indication:Essential hypertension Start:06-Apr-2017 Instruction Type:Patient Education Patient Instructions Indication:Encounter for screening mammogram for breast cancer (Renamed from Encounter for screening mammogram for malignant neoplasm of breast) Start:06-Apr-2017 Instruction Type:Provider Instructions for Treatment Patient Instructions Indication:Vitamin D deficiency Start:27-Nov-2016 Instruction Type:Provider Instructions for Treatment DISCONTINUED - LIPID PANEL ( [id number]) Indication:Atherosclerotic plaque Start:27-Nov-2016 Instruction Type:Patient Education DISCONTINUED - LIPID PANEL ( [id number]) Indication:Other and unspecified hyperlipidemia Start:27-Nov-2016 Instruction Type:Patient Education DISCONTINUED - METABOLIC STRAUSS EL, COMPREHENSIVE ([id number]) Indication:Essential hypertension Start:27-Nov-2016 Instruction Type:Patient Education How to access health informa tion online Indication:Essential hypertension Start:27-Nov-2016 Instruction Type:Patient Education How to access health informa tion online - Detail Indication:Essential hypertension Start:27-Nov-2016 Instruction Type:Patient Education Patient Instructions Indication:Essential hypertension Start:27-Nov-2016 Instruction Type:Provider Instructions for Treatment How to access health informa tion online Indication:Neck pain Start:02-Aug-2016 Instruction Type:Patient Education How to access health informa tion online - Detail Indication:Neck pain Start:02-Aug-2016 Instruction Type:Patient Education Patient Instructions Indication:BMI 27.0-27.9,adult Start:02-Aug-2016 Instruction Type:Provider Instructions for Treatment Patient Instructions Indication:Carotid stenosis, symptomatic w/o infarct, right Start:12-Apr-2016 Instruction Type:Provider Instructions for Treatment How to access health informa tion online Indication:UTI symptoms Start:22-Mar-2016 Instruction Type:Patient Education How to access health informa tion online - Detail Indication:UTI symptoms Start:22-Mar-2016 Instruction Type:Patient Education Patient Instructions Indication:UTI symptoms Start:22-Mar-2016 Instruction Type:Provider Instructions for Treatment How to access health informa tion online Indication:Essential hypertension Start:15-Mar-2016 Instruction Type:Patient Education How to access health informa tion online - Detail Indication:Essential hypertension Start:15-Mar-2016 Instruction Type:Patient Education Patient Instructions Indication:Essential hypertension Start:15-Mar-2016 Instruction Type:Provider Instructions for Treatment How to access health informa tion online Indication:Right sided abdominal pain Start:05-Apr-2015 Instruction Type:Patient Education How to access health informa tion online - Detail Indication:Right sided abdominal pain Start:05-Apr-2015 Instruction Type:Patient Education Patient Instructions Indication:Right sided abdominal pain Start:05-Apr-2015 Instruction Type:Provider Instructions for Treatment How to access health informa tion online Indication:Headache Start:12-Feb-2015 Instruction Type:Patient Education How to access health informa tion online - Detail Indication:Headache Start:12-Feb-2015 Instruction Type:Patient Education Patient Instructions Indication:Headache Start:12-Feb-2015 Instruction Type:Provider Instructions for Treatment How to access health informa tion online Indication:Abdominal pain Start:06-Nov-2014 Instruction Type:Patient Education How to access health informa tion online - Detail Indication:Abdominal pain Start:06-Nov-2014 Instruction Type:Patient Education Patient Instructions Indication:Abdominal pain Start:06-Nov-2014 Instruction Type:Provider Instructions for Treatment Patient Instructions Indication:Chronic cough Start:27-May-2013 Instruction Type:Provider Instructions for Treatment Patient Instructions Indication:Essential hypertension Start:12-Mar-2013 Instruction Type:Provider Instructions for Treatment Patient Instructions Indication:Essential hypertension Start:26-Nov-2012 Instruction Type:Provider Instructions for Treatment Patient Instructions Indication:Essential hypertension Start:17-Jan-2012 Instruction Type:Provider Instructions for Treatment [facility]; [facility] Work Phone: Instructions* Name Dates Details How to Access Health Informa tion Online using Patient Portal and [employer] Apps Indication:BMI 30.0-30.9,adult Start:17-Mar-2022 Instruction Type:Patient Education Patient Instructions Indication:BMI 30.0-30.9,adult Start:17-Mar-2022 Instruction Type:Provider Instructions for Treatment How to Access Health Informa tion Online using Patient Portal and [employer] Apps Indication:Nonsmoker Start:31-Jan-2022 Instruction Type:Patient Education Patient Instructions Indication:Nonsmoker Start:31-Jan-2022 Instruction Type:Provider Instructions for Treatment Patient Instructions Indication:Nonsmoker Start:23-Sep-2021 Instruction Type:Provider Instructions for Treatment How to Access Health Informa tion Online using Patient Portal and [employer] Apps Indication:Nonsmoker Start:23-Sep-2021 Instruction Type:Patient Education Patient Instructions Indication:Nonsmoker Start:05-Apr-2021 Instruction Type:Provider Instructions for Treatment How to Access Health Informa tion Online using Patient Portal and [employer] Apps Indication:Nonsmoker Start:05-Apr-2021 Instruction Type:Patient Education Patient Instructions Indication:Nonsmoker Start:24-Dec-2020 Instruction Type:Provider Instructions for Treatment How to Access Health Informa tion Online using Patient Portal and [employer] Apps Indication:Nonsmoker Start:24-Dec-2020 Instruction Type:Patient Education Patient Instructions Indication:Nonsmoker Start:17-Sep-2020 Instruction Type:Provider Instructions for Treatment How to Access Health Informa tion Online using Patient Portal and [employer] Apps Indication:Nonsmoker Start:17-Sep-2020 Instruction Type:Patient Education Patient Instructions Indication:Nonsmoker Start:25-May-2020 Instruction Type:Provider Instructions for Treatment How to Access Health Informa tion Online using Patient Portal and [employer] Apps Indication:Nonsmoker Start:25-May-2020 Instruction Type:Patient Education How to access health informa tion online Indication:Nonsmoker Start:23-Jan-2020 Instruction Type:Patient Education How to access health informa tion online - Detail Indication:Nonsmoker Start:23-Jan-2020 Instruction Type:Patient Education Patient Instructions Indication:BMI 30.0-30.9,adult Start:23-Jan-2020 Instruction Type:Provider Instructions for Treatment How to access health informa tion online Indication:Nonsmoker Start:22-Jul-2019 Instruction Type:Patient Education How to access health informa tion online - Detail Indication:Nonsmoker Start:22-Jul-2019 Instruction Type:Patient Education Patient Instructions Indication:BMI 29.0-29.9,adult Start:22-Jul-2019 Instruction Type:Provider Instructions for Treatment How to access health informa tion online Indication:BMI 29.0-29.9,adult Start:07-Apr-2019 Instruction Type:Patient Education How to access health informa tion online - Detail Indication:BMI 29.0-29.9,adult Start:07-Apr-2019 Instruction Type:Patient Education Patient Instructions Indication:Hand injury, left, initial encounter Start:07-Apr-2019 Instruction Type:Provider Instructions for Treatment How to access health informa tion online - Detail Indication:Nonsmoker Start:06-Sep-2018 Instruction Type:Patient Education How to access health informa tion online Indication:Nonsmoker Start:06-Sep-2018 Instruction Type:Patient Education Patient Instructions Indication:Alzheimer's dementia Start:06-Sep-2018 Instruction Type:Provider Instructions for Treatment How to access health informa tion online Indication:Nonsmoker Start:10-May-2018 Instruction Type:Patient Education How to access health informa tion online - Detail Indication:Nonsmoker Start:10-May-2018 Instruction Type:Patient Education Patient Instructions Indication:BMI 28.0-28.9,adult Start:10-May-2018 Instruction Type:Provider Instructions for Treatment How to access health informa tion online Indication:Nonsmoker Start:15-Jan-2018 Instruction Type:Patient Education How to access health informa tion online - Detail Indication:Nonsmoker Start:15-Jan-2018 Instruction Type:Patient Education Patient Instructions Indication:Nonsmoker Start:15-Jan-2018 Instruction Type:Provider Instructions for Treatment How to access health informa tion online Indication:Nonsmoker Start:18-Dec-2017 Instruction Type:Patient Education How to access health informa tion online - Detail Indication:Nonsmoker Start:18-Dec-2017 Instruction Type:Patient Education Patient Instructions Indication:BMI 28.0-28.9,adult Start:18-Dec-2017 Instruction Type:Provider Instructions for Treatment How to access health informa tion online Indication:Hypercholesteremia Start:07-Aug-2017 Instruction Type:Patient Education How to access health informa tion online - Detail Indication:Hypercholesteremia Start:07-Aug-2017 Instruction Type:Patient Education Patient Instructions Indication:Hypercholesteremia Start:07-Aug-2017 Instruction Type:Provider Instructions for Treatment How to access health informa tion online Indication:Essential hypertension Start:12-Jun-2017 Instruction Type:Patient Education How to access health informa tion online - Detail Indication:Essential hypertension Start:12-Jun-2017 Instruction Type:Patient Education Patient Instructions Indication:Essential hypertension Start:12-Jun-2017 Instruction Type:Provider Instructions for Treatment How to access health informa tion online Indication:Essential hypertension Start:06-Apr-2017 Instruction Type:Patient Education How to access health informa tion online - Detail Indication:Essential hypertension Start:06-Apr-2017 Instruction Type:Patient Education Patient Instructions Indication:Encounter for screening mammogram for breast cancer (Renamed from Encounter for screening mammogram for malignant neoplasm of breast) Start:06-Apr-2017 Instruction Type:Provider Instructions for Treatment Patient Instructions Indication:Vitamin D deficiency Start:27-Nov-2016 Instruction Type:Provider Instructions for Treatment DISCONTINUED - LIPID PANEL ( [id number]) Indication:Atherosclerotic plaque Start:27-Nov-2016 Instruction Type:Patient Education DISCONTINUED - LIPID PANEL ( [id number]) Indication:Other and unspecified hyperlipidemia Start:27-Nov-2016 Instruction Type:Patient Education DISCONTINUED - METABOLIC STRAUSS EL, COMPREHENSIVE ([id number]) Indication:Essential hypertension Start:27-Nov-2016 Instruction Type:Patient Education How to access health informa tion online Indication:Essential hypertension Start:27-Nov-2016 Instruction Type:Patient Education How to access health informa tion online - Detail Indication:Essential hypertension Start:27-Nov-2016 Instruction Type:Patient Education Patient Instructions Indication:Essential hypertension Start:27-Nov-2016 Instruction Type:Provider Instructions for Treatment How to access health informa tion online Indication:Neck pain Start:02-Aug-2016 Instruction Type:Patient Education How to access health informa tion online - Detail Indication:Neck pain Start:02-Aug-2016 Instruction Type:Patient Education Patient Instructions Indication:BMI 27.0-27.9,adult Start:02-Aug-2016 Instruction Type:Provider Instructions for Treatment Patient Instructions Indication:Carotid stenosis, symptomatic w/o infarct, right Start:12-Apr-2016 Instruction Type:Provider Instructions for Treatment How to access health informa tion online Indication:UTI symptoms Start:22-Mar-2016 Instruction Type:Patient Education How to access health informa tion online - Detail Indication:UTI symptoms Start:22-Mar-2016 Instruction Type:Patient Education Patient Instructions Indication:UTI symptoms Start:22-Mar-2016 Instruction Type:Provider Instructions for Treatment How to access health informa tion online Indication:Essential hypertension Start:15-Mar-2016 Instruction Type:Patient Education How to access health informa tion online - Detail Indication:Essential hypertension Start:15-Mar-2016 Instruction Type:Patient Education Patient Instructions Indication:Essential hypertension Start:15-Mar-2016 Instruction Type:Provider Instructions for Treatment How to access health informa tion online Indication:Right sided abdominal pain Start:05-Apr-2015 Instruction Type:Patient Education How to access health informa tion online - Detail Indication:Right sided abdominal pain Start:05-Apr-2015 Instruction Type:Patient Education Patient Instructions Indication:Right sided abdominal pain Start:05-Apr-2015 Instruction Type:Provider Instructions for Treatment How to access health informa tion online Indication:Headache Start:12-Feb-2015 Instruction Type:Patient Education How to access health informa tion online - Detail Indication:Headache Start:12-Feb-2015 Instruction Type:Patient Education Patient Instructions Indication:Headache Start:12-Feb-2015 Instruction Type:Provider Instructions for Treatment How to access health informa tion online Indication:Abdominal pain Start:06-Nov-2014 Instruction Type:Patient Education How to access health informa tion online - Detail Indication:Abdominal pain Start:06-Nov-2014 Instruction Type:Patient Education Patient Instructions Indication:Abdominal pain Start:06-Nov-2014 Instruction Type:Provider Instructions for Treatment Patient Instructions Indication:Chronic cough Start:27-May-2013 Instruction Type:Provider Instructions for Treatment Patient Instructions Indication:Essential hypertension Start:12-Mar-2013 Instruction Type:Provider Instructions for Treatment Patient Instructions Indication:Essential hypertension Start:26-Nov-2012 Instruction Type:Provider Instructions for Treatment Patient Instructions Indication:Essential hypertension Start:17-Jan-2012 Instruction Type:Provider Instructions for Treatment [facility]; [facility] Work Phone: Instructions* Name Dates Details How to Access Health Informa tion Online using Patient Portal and [employer] Apps Indication:BMI 30.0-30.9,adult Start:17-Mar-2022 Instruction Type:Patient Education Patient Instructions Indication:BMI 30.0-30.9,adult Start:17-Mar-2022 Instruction Type:Provider Instructions for Treatment How to Access Health Informa tion Online using Patient Portal and [employer] Apps Indication:Nonsmoker Start:31-Jan-2022 Instruction Type:Patient Education Patient Instructions Indication:Nonsmoker Start:31-Jan-2022 Instruction Type:Provider Instructions for Treatment Patient Instructions Indication:Nonsmoker Start:23-Sep-2021 Instruction Type:Provider Instructions for Treatment How to Access Health Informa tion Online using Patient Portal and [employer] Apps Indication:Nonsmoker Start:23-Sep-2021 Instruction Type:Patient Education Patient Instructions Indication:Nonsmoker Start:05-Apr-2021 Instruction Type:Provider Instructions for Treatment How to Access Health Informa tion Online using Patient Portal and [employer] Apps Indication:Nonsmoker Start:05-Apr-2021 Instruction Type:Patient Education Patient Instructions Indication:Nonsmoker Start:24-Dec-2020 Instruction Type:Provider Instructions for Treatment How to Access Health Informa tion Online using Patient Portal and [employer] Apps Indication:Nonsmoker Start:24-Dec-2020 Instruction Type:Patient Education Patient Instructions Indication:Nonsmoker Start:17-Sep-2020 Instruction Type:Provider Instructions for Treatment How to Access Health Informa tion Online using Patient Portal and [employer] Apps Indication:Nonsmoker Start:17-Sep-2020 Instruction Type:Patient Education Patient Instructions Indication:Nonsmoker Start:25-May-2020 Instruction Type:Provider Instructions for Treatment How to Access Health Informa tion Online using Patient Portal and [employer] Apps Indication:Nonsmoker Start:25-May-2020 Instruction Type:Patient Education How to access health informa tion online Indication:Nonsmoker Start:23-Jan-2020 Instruction Type:Patient Education How to access health informa tion online - Detail Indication:Nonsmoker Start:23-Jan-2020 Instruction Type:Patient Education Patient Instructions Indication:BMI 30.0-30.9,adult Start:23-Jan-2020 Instruction Type:Provider Instructions for Treatment How to access health informa tion online Indication:Nonsmoker Start:22-Jul-2019 Instruction Type:Patient Education How to access health informa tion online - Detail Indication:Nonsmoker Start:22-Jul-2019 Instruction Type:Patient Education Patient Instructions Indication:BMI 29.0-29.9,adult Start:22-Jul-2019 Instruction Type:Provider Instructions for Treatment How to access health informa tion online Indication:BMI 29.0-29.9,adult Start:07-Apr-2019 Instruction Type:Patient Education How to access health informa tion online - Detail Indication:BMI 29.0-29.9,adult Start:07-Apr-2019 Instruction Type:Patient Education Patient Instructions Indication:Hand injury, left, initial encounter Start:07-Apr-2019 Instruction Type:Provider Instructions for Treatment How to access health informa tion online - Detail Indication:Nonsmoker Start:06-Sep-2018 Instruction Type:Patient Education How to access health informa tion online Indication:Nonsmoker Start:06-Sep-2018 Instruction Type:Patient Education Patient Instructions Indication:Alzheimer's dementia Start:06-Sep-2018 Instruction Type:Provider Instructions for Treatment How to access health informa tion online Indication:Nonsmoker Start:10-May-2018 Instruction Type:Patient Education How to access health informa tion online - Detail Indication:Nonsmoker Start:10-May-2018 Instruction Type:Patient Education Patient Instructions Indication:BMI 28.0-28.9,adult Start:10-May-2018 Instruction Type:Provider Instructions for Treatment How to access health informa tion online Indication:Nonsmoker Start:15-Jan-2018 Instruction Type:Patient Education How to access health informa tion online - Detail Indication:Nonsmoker Start:15-Jan-2018 Instruction Type:Patient Education Patient Instructions Indication:Nonsmoker Start:15-Jan-2018 Instruction Type:Provider Instructions for Treatment How to access health informa tion online Indication:Nonsmoker Start:18-Dec-2017 Instruction Type:Patient Education How to access health informa tion online - Detail Indication:Nonsmoker Start:18-Dec-2017 Instruction Type:Patient Education Patient Instructions Indication:BMI 28.0-28.9,adult Start:18-Dec-2017 Instruction Type:Provider Instructions for Treatment How to access health informa tion online Indication:Hypercholesteremia Start:07-Aug-2017 Instruction Type:Patient Education How to access health informa tion online - Detail Indication:Hypercholesteremia Start:07-Aug-2017 Instruction Type:Patient Education Patient Instructions Indication:Hypercholesteremia Start:07-Aug-2017 Instruction Type:Provider Instructions for Treatment How to access health informa tion online Indication:Essential hypertension Start:12-Jun-2017 Instruction Type:Patient Education How to access health informa tion online - Detail Indication:Essential hypertension Start:12-Jun-2017 Instruction Type:Patient Education Patient Instructions Indication:Essential hypertension Start:12-Jun-2017 Instruction Type:Provider Instructions for Treatment How to access health informa tion online Indication:Essential hypertension Start:06-Apr-2017 Instruction Type:Patient Education How to access health informa tion online - Detail Indication:Essential hypertension Start:06-Apr-2017 Instruction Type:Patient Education Patient Instructions Indication:Encounter for screening mammogram for breast cancer (Renamed from Encounter for screening mammogram for malignant neoplasm of breast) Start:06-Apr-2017 Instruction Type:Provider Instructions for Treatment Patient Instructions Indication:Vitamin D deficiency Start:27-Nov-2016 Instruction Type:Provider Instructions for Treatment DISCONTINUED - LIPID PANEL ( [id number]) Indication:Atherosclerotic plaque Start:27-Nov-2016 Instruction Type:Patient Education DISCONTINUED - LIPID PANEL ( [id number]) Indication:Other and unspecified hyperlipidemia Start:27-Nov-2016 Instruction Type:Patient Education DISCONTINUED - METABOLIC STRAUSS EL, COMPREHENSIVE ([id number]) Indication:Essential hypertension Start:27-Nov-2016 Instruction Type:Patient Education How to access health informa tion online Indication:Essential hypertension Start:27-Nov-2016 Instruction Type:Patient Education How to access health informa tion online - Detail Indication:Essential hypertension Start:27-Nov-2016 Instruction Type:Patient Education Patient Instructions Indication:Essential hypertension Start:27-Nov-2016 Instruction Type:Provider Instructions for Treatment How to access health informa tion online Indication:Neck pain Start:02-Aug-2016 Instruction Type:Patient Education How to access health informa tion online - Detail Indication:Neck pain Start:02-Aug-2016 Instruction Type:Patient Education Patient Instructions Indication:BMI 27.0-27.9,adult Start:02-Aug-2016 Instruction Type:Provider Instructions for Treatment Patient Instructions Indication:Carotid stenosis, symptomatic w/o infarct, right Start:12-Apr-2016 Instruction Type:Provider Instructions for Treatment How to access health informa tion online Indication:UTI symptoms Start:22-Mar-2016 Instruction Type:Patient Education How to access health informa tion online - Detail Indication:UTI symptoms Start:22-Mar-2016 Instruction Type:Patient Education Patient Instructions Indication:UTI symptoms Start:22-Mar-2016 Instruction Type:Provider Instructions for Treatment How to access health informa tion online Indication:Essential hypertension Start:15-Mar-2016 Instruction Type:Patient Education How to access health informa tion online - Detail Indication:Essential hypertension Start:15-Mar-2016 Instruction Type:Patient Education Patient Instructions Indication:Essential hypertension Start:15-Mar-2016 Instruction Type:Provider Instructions for Treatment How to access health informa tion online Indication:Right sided abdominal pain Start:05-Apr-2015 Instruction Type:Patient Education How to access health informa tion online - Detail Indication:Right sided abdominal pain Start:05-Apr-2015 Instruction Type:Patient Education Patient Instructions Indication:Right sided abdominal pain Start:05-Apr-2015 Instruction Type:Provider Instructions for Treatment How to access health informa tion online Indication:Headache Start:12-Feb-2015 Instruction Type:Patient Education How to access health informa tion online - Detail Indication:Headache Start:12-Feb-2015 Instruction Type:Patient Education Patient Instructions Indication:Headache Start:12-Feb-2015 Instruction Type:Provider Instructions for Treatment How to access health informa tion online Indication:Abdominal pain Start:06-Nov-2014 Instruction Type:Patient Education How to access health informa tion online - Detail Indication:Abdominal pain Start:06-Nov-2014 Instruction Type:Patient Education Patient Instructions Indication:Abdominal pain Start:06-Nov-2014 Instruction Type:Provider Instructions for Treatment Patient Instructions Indication:Chronic cough Start:27-May-2013 Instruction Type:Provider Instructions for Treatment Patient Instructions Indication:Essential hypertension Start:12-Mar-2013 Instruction Type:Provider Instructions for Treatment Patient Instructions Indication:Essential hypertension Start:26-Nov-2012 Instruction Type:Provider Instructions for Treatment Patient Instructions Indication:Essential hypertension Start:17-Jan-2012 Instruction Type:Provider Instructions for Treatment [facility] Work Phone: Instructions* Name Dates Details Patient Instructions Indication:Nonsmoker Start:07-Jun-2022 Instruction Type:Provider Instructions for Treatment How to Access Health Informa tion Online using Patient Portal and 3rd [employer] Apps Indication:Nonsmoker Start:07-Jun-2022 Instruction Type:Patient Education How to Access Health Informa tion Online using Patient Portal and [employer]rd [employer] Apps Indication:BMI 30.0-30.9,adult Start:17-Mar-2022 Instruction Type:Patient Education Patient Instructions Indication:BMI 30.0-30.9,adult Start:17-Mar-2022 Instruction Type:Provider Instructions for Treatment How to Access Health Informa tion Online using Patient Portal and [employer]rd [employer] Apps Indication:Nonsmoker Start:31-Jan-2022 Instruction Type:Patient Education Patient Instructions Indication:Nonsmoker Start:31-Jan-2022 Instruction Type:Provider Instructions for Treatment Patient Instructions Indication:Nonsmoker Start:23-Sep-2021 Instruction Type:Provider Instructions for Treatment How to Access Health Informa tion Online using Patient Portal and [employer]rd [employer] Apps Indication:Nonsmoker Start:23-Sep-2021 Instruction Type:Patient Education Patient Instructions Indication:Nonsmoker Start:05-Apr-2021 Instruction Type:Provider Instructions for Treatment How to Access Health Informa tion Online using Patient Portal and [employer]rd [employer] Apps Indication:Nonsmoker Start:05-Apr-2021 Instruction Type:Patient Education Patient Instructions Indication:Nonsmoker Start:24-Dec-2020 Instruction Type:Provider Instructions for Treatment How to Access Health Informa tion Online using Patient Portal and [employer]rd [employer] Apps Indication:Nonsmoker Start:24-Dec-2020 Instruction Type:Patient Education Patient Instructions Indication:Nonsmoker Start:17-Sep-2020 Instruction Type:Provider Instructions for Treatment How to Access Health Informa tion Online using Patient Portal and [employer]rd [employer] Apps Indication:Nonsmoker Start:17-Sep-2020 Instruction Type:Patient Education Patient Instructions Indication:Nonsmoker Start:25-May-2020 Instruction Type:Provider Instructions for Treatment How to Access Health Informa tion Online using Patient Portal and [employer]rd [employer] Apps Indication:Nonsmoker Start:25-May-2020 Instruction Type:Patient Education How to access health informa tion online Indication:Nonsmoker Start:23-Jan-2020 Instruction Type:Patient Education How to access health informa tion online - Detail Indication:Nonsmoker Start:23-Jan-2020 Instruction Type:Patient Education Patient Instructions Indication:BMI 30.0-30.9,adult Start:23-Jan-2020 Instruction Type:Provider Instructions for Treatment How to access health informa tion online Indication:Nonsmoker Start:22-Jul-2019 Instruction Type:Patient Education How to access health informa tion online - Detail Indication:Nonsmoker Start:22-Jul-2019 Instruction Type:Patient Education Patient Instructions Indication:BMI 29.0-29.9,adult Start:22-Jul-2019 Instruction Type:Provider Instructions for Treatment How to access health informa tion online Indication:BMI 29.0-29.9,adult Start:07-Apr-2019 Instruction Type:Patient Education How to access health informa tion online - Detail Indication:BMI 29.0-29.9,adult Start:07-Apr-2019 Instruction Type:Patient Education Patient Instructions Indication:Hand injury, left, initial encounter Start:07-Apr-2019 Instruction Type:Provider Instructions for Treatment How to access health informa tion online - Detail Indication:Nonsmoker Start:06-Sep-2018 Instruction Type:Patient Education How to access health informa tion online Indication:Nonsmoker Start:06-Sep-2018 Instruction Type:Patient Education Patient Instructions Indication:Alzheimer's dementia Start:06-Sep-2018 Instruction Type:Provider Instructions for Treatment How to access health informa tion online Indication:Nonsmoker Start:10-May-2018 Instruction Type:Patient Education How to access health informa tion online - Detail Indication:Nonsmoker Start:10-May-2018 Instruction Type:Patient Education Patient Instructions Indication:BMI 28.0-28.9,adult Start:10-May-2018 Instruction Type:Provider Instructions for Treatment How to access health informa tion online Indication:Nonsmoker Start:15-Jan-2018 Instruction Type:Patient Education How to access health informa tion online - Detail Indication:Nonsmoker Start:15-Jan-2018 Instruction Type:Patient Education Patient Instructions Indication:Nonsmoker Start:15-Jan-2018 Instruction Type:Provider Instructions for Treatment How to access health informa tion online Indication:Nonsmoker Start:18-Dec-2017 Instruction Type:Patient Education How to access health informa tion online - Detail Indication:Nonsmoker Start:18-Dec-2017 Instruction Type:Patient Education Patient Instructions Indication:BMI 28.0-28.9,adult Start:18-Dec-2017 Instruction Type:Provider Instructions for Treatment How to access health informa tion online Indication:Hypercholesteremia Start:07-Aug-2017 Instruction Type:Patient Education How to access health informa tion online - Detail Indication:Hypercholesteremia Start:07-Aug-2017 Instruction Type:Patient Education Patient Instructions Indication:Hypercholesteremia Start:07-Aug-2017 Instruction Type:Provider Instructions for Treatment How to access health informa tion online Indication:Essential hypertension Start:12-Jun-2017 Instruction Type:Patient Education How to access health informa tion online - Detail Indication:Essential hypertension Start:12-Jun-2017 Instruction Type:Patient Education Patient Instructions Indication:Essential hypertension Start:12-Jun-2017 Instruction Type:Provider Instructions for Treatment How to access health informa tion online Indication:Essential hypertension Start:06-Apr-2017 Instruction Type:Patient Education How to access health informa tion online - Detail Indication:Essential hypertension Start:06-Apr-2017 Instruction Type:Patient Education Patient Instructions Indication:Encounter for screening mammogram for breast cancer (Renamed from Encounter for screening mammogram for malignant neoplasm of breast) Start:06-Apr-2017 Instruction Type:Provider Instructions for Treatment Patient Instructions Indication:Vitamin D deficiency Start:27-Nov-2016 Instruction Type:Provider Instructions for Treatment DISCONTINUED - LIPID PANEL ( [id number]) Indication:Atherosclerotic plaque Start:27-Nov-2016 Instruction Type:Patient Education DISCONTINUED - LIPID PANEL ( [id number]) Indication:Other and unspecified hyperlipidemia Start:27-Nov-2016 Instruction Type:Patient Education DISCONTINUED - METABOLIC STRAUSS EL, COMPREHENSIVE ([id number]) Indication:Essential hypertension Start:27-Nov-2016 Instruction Type:Patient Education How to access health informa tion online Indication:Essential hypertension Start:27-Nov-2016 Instruction Type:Patient Education How to access health informa tion online - Detail Indication:Essential hypertension Start:27-Nov-2016 Instruction Type:Patient Education Patient Instructions Indication:Essential hypertension Start:27-Nov-2016 Instruction Type:Provider Instructions for Treatment How to access health informa tion online Indication:Neck pain Start:02-Aug-2016 Instruction Type:Patient Education How to access health informa tion online - Detail Indication:Neck pain Start:02-Aug-2016 Instruction Type:Patient Education Patient Instructions Indication:BMI 27.0-27.9,adult Start:02-Aug-2016 Instruction Type:Provider Instructions for Treatment Patient Instructions Indication:Carotid stenosis, symptomatic w/o infarct, right Start:12-Apr-2016 Instruction Type:Provider Instructions for Treatment How to access health informa tion online Indication:UTI symptoms Start:22-Mar-2016 Instruction Type:Patient Education How to access health informa tion online - Detail Indication:UTI symptoms Start:22-Mar-2016 Instruction Type:Patient Education Patient Instructions Indication:UTI symptoms Start:22-Mar-2016 Instruction Type:Provider Instructions for Treatment How to access health informa tion online Indication:Essential hypertension Start:15-Mar-2016 Instruction Type:Patient Education How to access health informa tion online - Detail Indication:Essential hypertension Start:15-Mar-2016 Instruction Type:Patient Education Patient Instructions Indication:Essential hypertension Start:15-Mar-2016 Instruction Type:Provider Instructions for Treatment How to access health informa tion online Indication:Right sided abdominal pain Start:05-Apr-2015 Instruction Type:Patient Education How to access health informa tion online - Detail Indication:Right sided abdominal pain Start:05-Apr-2015 Instruction Type:Patient Education Patient Instructions Indication:Right sided abdominal pain Start:05-Apr-2015 Instruction Type:Provider Instructions for Treatment How to access health informa tion online Indication:Headache Start:12-Feb-2015 Instruction Type:Patient Education How to access health informa tion online - Detail Indication:Headache Start:12-Feb-2015 Instruction Type:Patient Education Patient Instructions Indication:Headache Start:12-Feb-2015 Instruction Type:Provider Instructions for Treatment How to access health informa tion online Indication:Abdominal pain Start:06-Nov-2014 Instruction Type:Patient Education How to access health informa tion online - Detail Indication:Abdominal pain Start:06-Nov-2014 Instruction Type:Patient Education Patient Instructions Indication:Abdominal pain Start:06-Nov-2014 Instruction Type:Provider Instructions for Treatment Patient Instructions Indication:Chronic cough Start:27-May-2013 Instruction Type:Provider Instructions for Treatment Patient Instructions Indication:Essential hypertension Start:12-Mar-2013 Instruction Type:Provider Instructions for Treatment Patient Instructions Indication:Essential hypertension Start:26-Nov-2012 Instruction Type:Provider Instructions for Treatment Patient Instructions Indication:Essential hypertension Start:17-Jan-2012 Instruction Type:Provider Instructions for Treatment [facility] Work Phone: Instructions* Name Dates Details Patient Instructions Indication:Alzheimer's dementia Start:01-Aug-2022 Instruction Type:Provider Instructions for Treatment How to Access Health Informa tion Online using Patient Portal and [employer]rd [employer] Apps Indication:Alzheimer's dementia Start:01-Aug-2022 Instruction Type:Patient Education Patient Instructions Indication:Nonsmoker Start:07-Jun-2022 Instruction Type:Provider Instructions for Treatment How to Access Health Informa tion Online using Patient Portal and [employer]rd [employer] Apps Indication:Nonsmoker Start:07-Jun-2022 Instruction Type:Patient Education How to Access Health Informa tion Online using Patient Portal and [employer]rd [employer] Apps Indication:BMI 30.0-30.9,adult Start:17-Mar-2022 Instruction Type:Patient Education Patient Instructions Indication:BMI 30.0-30.9,adult Start:17-Mar-2022 Instruction Type:Provider Instructions for Treatment How to Access Health Informa tion Online using Patient Portal and [employer]rd [employer] Apps Indication:Nonsmoker Start:31-Jan-2022 Instruction Type:Patient Education Patient Instructions Indication:Nonsmoker Start:31-Jan-2022 Instruction Type:Provider Instructions for Treatment Patient Instructions Indication:Nonsmoker Start:23-Sep-2021 Instruction Type:Provider Instructions for Treatment How to Access Health Informa tion Online using Patient Portal and [employer]rd [employer] Apps Indication:Nonsmoker Start:23-Sep-2021 Instruction Type:Patient Education Patient Instructions Indication:Nonsmoker Start:05-Apr-2021 Instruction Type:Provider Instructions for Treatment How to Access Health Informa tion Online using Patient Portal and [employer]rd [employer] Apps Indication:Nonsmoker Start:05-Apr-2021 Instruction Type:Patient Education Patient Instructions Indication:Nonsmoker Start:24-Dec-2020 Instruction Type:Provider Instructions for Treatment How to Access Health Informa tion Online using Patient Portal and [employer]rd [employer] Apps Indication:Nonsmoker Start:24-Dec-2020 Instruction Type:Patient Education Patient Instructions Indication:Nonsmoker Start:17-Sep-2020 Instruction Type:Provider Instructions for Treatment How to Access Health Informa tion Online using Patient Portal and [employer]rd [employer] Apps Indication:Nonsmoker Start:17-Sep-2020 Instruction Type:Patient Education Patient Instructions Indication:Nonsmoker Start:25-May-2020 Instruction Type:Provider Instructions for Treatment How to Access Health Informa tion Online using Patient Portal and [employer]rd [employer] Apps Indication:Nonsmoker Start:25-May-2020 Instruction Type:Patient Education How to access health informa tion online Indication:Nonsmoker Start:23-Jan-2020 Instruction Type:Patient Education How to access health informa tion online - Detail Indication:Nonsmoker Start:23-Jan-2020 Instruction Type:Patient Education Patient Instructions Indication:BMI 30.0-30.9,adult Start:23-Jan-2020 Instruction Type:Provider Instructions for Treatment How to access health informa tion online Indication:Nonsmoker Start:22-Jul-2019 Instruction Type:Patient Education How to access health informa tion online - Detail Indication:Nonsmoker Start:22-Jul-2019 Instruction Type:Patient Education Patient Instructions Indication:BMI 29.0-29.9,adult Start:22-Jul-2019 Instruction Type:Provider Instructions for Treatment How to access health informa tion online Indication:BMI 29.0-29.9,adult Start:07-Apr-2019 Instruction Type:Patient Education How to access health informa tion online - Detail Indication:BMI 29.0-29.9,adult Start:07-Apr-2019 Instruction Type:Patient Education Patient Instructions Indication:Hand injury, left, initial encounter Start:07-Apr-2019 Instruction Type:Provider Instructions for Treatment How to access health informa tion online - Detail Indication:Nonsmoker Start:06-Sep-2018 Instruction Type:Patient Education How to access health informa tion online Indication:Nonsmoker Start:06-Sep-2018 Instruction Type:Patient Education Patient Instructions Indication:Alzheimer's dementia Start:06-Sep-2018 Instruction Type:Provider Instructions for Treatment How to access health informa tion online Indication:Nonsmoker Start:10-May-2018 Instruction Type:Patient Education How to access health informa tion online - Detail Indication:Nonsmoker Start:10-May-2018 Instruction Type:Patient Education Patient Instructions Indication:BMI 28.0-28.9,adult Start:10-May-2018 Instruction Type:Provider Instructions for Treatment How to access health informa tion online Indication:Nonsmoker Start:15-Jan-2018 Instruction Type:Patient Education How to access health informa tion online - Detail Indication:Nonsmoker Start:15-Jan-2018 Instruction Type:Patient Education Patient Instructions Indication:Nonsmoker Start:15-Jan-2018 Instruction Type:Provider Instructions for Treatment How to access health informa tion online Indication:Nonsmoker Start:18-Dec-2017 Instruction Type:Patient Education How to access health informa tion online - Detail Indication:Nonsmoker Start:18-Dec-2017 Instruction Type:Patient Education Patient Instructions Indication:BMI 28.0-28.9,adult Start:18-Dec-2017 Instruction Type:Provider Instructions for Treatment How to access health informa tion online Indication:Hypercholesteremia Start:07-Aug-2017 Instruction Type:Patient Education How to access health informa tion online - Detail Indication:Hypercholesteremia Start:07-Aug-2017 Instruction Type:Patient Education Patient Instructions Indication:Hypercholesteremia Start:07-Aug-2017 Instruction Type:Provider Instructions for Treatment How to access health informa tion online Indication:Essential hypertension Start:12-Jun-2017 Instruction Type:Patient Education How to access health informa tion online - Detail Indication:Essential hypertension Start:12-Jun-2017 Instruction Type:Patient Education Patient Instructions Indication:Essential hypertension Start:12-Jun-2017 Instruction Type:Provider Instructions for Treatment How to access health informa tion online Indication:Essential hypertension Start:06-Apr-2017 Instruction Type:Patient Education How to access health informa tion online - Detail Indication:Essential hypertension Start:06-Apr-2017 Instruction Type:Patient Education Patient Instructions Indication:Encounter for screening mammogram for breast cancer (Renamed from Encounter for screening mammogram for malignant neoplasm of breast) Start:06-Apr-2017 Instruction Type:Provider Instructions for Treatment Patient Instructions Indication:Vitamin D deficiency Start:27-Nov-2016 Instruction Type:Provider Instructions for Treatment DISCONTINUED - LIPID PANEL ( [id number]) Indication:Atherosclerotic plaque Start:27-Nov-2016 Instruction Type:Patient Education DISCONTINUED - LIPID PANEL ( [id number]) Indication:Other and unspecified hyperlipidemia Start:27-Nov-2016 Instruction Type:Patient Education DISCONTINUED - METABOLIC STRAUSS EL, COMPREHENSIVE ([id number]) Indication:Essential hypertension Start:27-Nov-2016 Instruction Type:Patient Education How to access health informa tion online Indication:Essential hypertension Start:27-Nov-2016 Instruction Type:Patient Education How to access health informa tion online - Detail Indication:Essential hypertension Start:27-Nov-2016 Instruction Type:Patient Education Patient Instructions Indication:Essential hypertension Start:27-Nov-2016 Instruction Type:Provider Instructions for Treatment How to access health informa tion online Indication:Neck pain Start:02-Aug-2016 Instruction Type:Patient Education How to access health informa tion online - Detail Indication:Neck pain Start:02-Aug-2016 Instruction Type:Patient Education Patient Instructions Indication:BMI 27.0-27.9,adult Start:02-Aug-2016 Instruction Type:Provider Instructions for Treatment Patient Instructions Indication:Carotid stenosis, symptomatic w/o infarct, right Start:12-Apr-2016 Instruction Type:Provider Instructions for Treatment How to access health informa tion online Indication:UTI symptoms Start:22-Mar-2016 Instruction Type:Patient Education How to access health informa tion online - Detail Indication:UTI symptoms Start:22-Mar-2016 Instruction Type:Patient Education Patient Instructions Indication:UTI symptoms Start:22-Mar-2016 Instruction Type:Provider Instructions for Treatment How to access health informa tion online Indication:Essential hypertension Start:15-Mar-2016 Instruction Type:Patient Education How to access health informa tion online - Detail Indication:Essential hypertension Start:15-Mar-2016 Instruction Type:Patient Education Patient Instructions Indication:Essential hypertension Start:15-Mar-2016 Instruction Type:Provider Instructions for Treatment How to access health informa tion online Indication:Right sided abdominal pain Start:05-Apr-2015 Instruction Type:Patient Education How to access health informa tion online - Detail Indication:Right sided abdominal pain Start:05-Apr-2015 Instruction Type:Patient Education Patient Instructions Indication:Right sided abdominal pain Start:05-Apr-2015 Instruction Type:Provider Instructions for Treatment How to access health informa tion online Indication:Headache Start:12-Feb-2015 Instruction Type:Patient Education How to access health informa tion online - Detail Indication:Headache Start:12-Feb-2015 Instruction Type:Patient Education Patient Instructions Indication:Headache Start:12-Feb-2015 Instruction Type:Provider Instructions for Treatment How to access health informa tion online Indication:Abdominal pain Start:06-Nov-2014 Instruction Type:Patient Education How to access health informa tion online - Detail Indication:Abdominal pain Start:06-Nov-2014 Instruction Type:Patient Education Patient Instructions Indication:Abdominal pain Start:06-Nov-2014 Instruction Type:Provider Instructions for Treatment Patient Instructions Indication:Chronic cough Start:27-May-2013 Instruction Type:Provider Instructions for Treatment Patient Instructions Indication:Essential hypertension Start:12-Mar-2013 Instruction Type:Provider Instructions for Treatment Patient Instructions Indication:Essential hypertension Start:26-Nov-2012 Instruction Type:Provider Instructions for Treatment Patient Instructions Indication:Essential hypertension Start:17-Jan-2012 Instruction Type:Provider Instructions for Treatment [facility] Work Phone: Instructions* Name Dates Details Patient Instructions Indication:Alzheimer's dementia Start:01-Aug-2022 Instruction Type:Provider Instructions for Treatment How to Access Health Informa tion Online using Patient Portal and [employer]rd [employer] Apps Indication:Alzheimer's dementia Start:01-Aug-2022 Instruction Type:Patient Education Patient Instructions Indication:Nonsmoker Start:07-Jun-2022 Instruction Type:Provider Instructions for Treatment How to Access Health Informa tion Online using Patient Portal and [employer]rd [employer] Apps Indication:Nonsmoker Start:07-Jun-2022 Instruction Type:Patient Education How to Access Health Informa tion Online using Patient Portal and [employer]rd [employer] Apps Indication:BMI 30.0-30.9,adult Start:17-Mar-2022 Instruction Type:Patient Education Patient Instructions Indication:BMI 30.0-30.9,adult Start:17-Mar-2022 Instruction Type:Provider Instructions for Treatment How to Access Health Informa tion Online using Patient Portal and [employer]rd [employer] Apps Indication:Nonsmoker Start:31-Jan-2022 Instruction Type:Patient Education Patient Instructions Indication:Nonsmoker Start:31-Jan-2022 Instruction Type:Provider Instructions for Treatment Patient Instructions Indication:Nonsmoker Start:23-Sep-2021 Instruction Type:Provider Instructions for Treatment How to Access Health Informa tion Online using Patient Portal and [employer]rd [employer] Apps Indication:Nonsmoker Start:23-Sep-2021 Instruction Type:Patient Education Patient Instructions Indication:Nonsmoker Start:05-Apr-2021 Instruction Type:Provider Instructions for Treatment How to Access Health Informa tion Online using Patient Portal and [employer]rd [employer] Apps Indication:Nonsmoker Start:05-Apr-2021 Instruction Type:Patient Education Patient Instructions Indication:Nonsmoker Start:24-Dec-2020 Instruction Type:Provider Instructions for Treatment How to Access Health Informa tion Online using Patient Portal and [employer]rd [employer] Apps Indication:Nonsmoker Start:24-Dec-2020 Instruction Type:Patient Education Patient Instructions Indication:Nonsmoker Start:17-Sep-2020 Instruction Type:Provider Instructions for Treatment How to Access Health Informa tion Online using Patient Portal and [employer]rd [employer] Apps Indication:Nonsmoker Start:17-Sep-2020 Instruction Type:Patient Education Patient Instructions Indication:Nonsmoker Start:25-May-2020 Instruction Type:Provider Instructions for Treatment How to Access Health Informa tion Online using Patient Portal and [employer]rd [employer] Apps Indication:Nonsmoker Start:25-May-2020 Instruction Type:Patient Education How to access health informa tion online Indication:Nonsmoker Start:23-Jan-2020 Instruction Type:Patient Education How to access health informa tion online - Detail Indication:Nonsmoker Start:23-Jan-2020 Instruction Type:Patient Education Patient Instructions Indication:BMI 30.0-30.9,adult Start:23-Jan-2020 Instruction Type:Provider Instructions for Treatment How to access health informa tion online Indication:Nonsmoker Start:22-Jul-2019 Instruction Type:Patient Education How to access health informa tion online - Detail Indication:Nonsmoker Start:22-Jul-2019 Instruction Type:Patient Education Patient Instructions Indication:BMI 29.0-29.9,adult Start:22-Jul-2019 Instruction Type:Provider Instructions for Treatment How to access health informa tion online Indication:BMI 29.0-29.9,adult Start:07-Apr-2019 Instruction Type:Patient Education How to access health informa tion online - Detail Indication:BMI 29.0-29.9,adult Start:07-Apr-2019 Instruction Type:Patient Education Patient Instructions Indication:Hand injury, left, initial encounter Start:07-Apr-2019 Instruction Type:Provider Instructions for Treatment How to access health informa tion online - Detail Indication:Nonsmoker Start:06-Sep-2018 Instruction Type:Patient Education How to access health informa tion online Indication:Nonsmoker Start:06-Sep-2018 Instruction Type:Patient Education Patient Instructions Indication:Alzheimer's dementia Start:06-Sep-2018 Instruction Type:Provider Instructions for Treatment How to access health informa tion online Indication:Nonsmoker Start:10-May-2018 Instruction Type:Patient Education How to access health informa tion online - Detail Indication:Nonsmoker Start:10-May-2018 Instruction Type:Patient Education Patient Instructions Indication:BMI 28.0-28.9,adult Start:10-May-2018 Instruction Type:Provider Instructions for Treatment How to access health informa tion online Indication:Nonsmoker Start:15-Jan-2018 Instruction Type:Patient Education How to access health informa tion online - Detail Indication:Nonsmoker Start:15-Jan-2018 Instruction Type:Patient Education Patient Instructions Indication:Nonsmoker Start:15-Jan-2018 Instruction Type:Provider Instructions for Treatment How to access health informa tion online Indication:Nonsmoker Start:18-Dec-2017 Instruction Type:Patient Education How to access health informa tion online - Detail Indication:Nonsmoker Start:18-Dec-2017 Instruction Type:Patient Education Patient Instructions Indication:BMI 28.0-28.9,adult Start:18-Dec-2017 Instruction Type:Provider Instructions for Treatment How to access health informa tion online Indication:Hypercholesteremia Start:07-Aug-2017 Instruction Type:Patient Education How to access health informa tion online - Detail Indication:Hypercholesteremia Start:07-Aug-2017 Instruction Type:Patient Education Patient Instructions Indication:Hypercholesteremia Start:07-Aug-2017 Instruction Type:Provider Instructions for Treatment How to access health informa tion online Indication:Essential hypertension Start:12-Jun-2017 Instruction Type:Patient Education How to access health informa tion online - Detail Indication:Essential hypertension Start:12-Jun-2017 Instruction Type:Patient Education Patient Instructions Indication:Essential hypertension Start:12-Jun-2017 Instruction Type:Provider Instructions for Treatment How to access health informa tion online Indication:Essential hypertension Start:06-Apr-2017 Instruction Type:Patient Education How to access health informa tion online - Detail Indication:Essential hypertension Start:06-Apr-2017 Instruction Type:Patient Education Patient Instructions Indication:Encounter for screening mammogram for breast cancer (Renamed from Encounter for screening mammogram for malignant neoplasm of breast) Start:06-Apr-2017 Instruction Type:Provider Instructions for Treatment Patient Instructions Indication:Vitamin D deficiency Start:27-Nov-2016 Instruction Type:Provider Instructions for Treatment DISCONTINUED - LIPID PANEL ( 78546) Indication:Atherosclerotic plaque Start:27-Nov-2016 Instruction Type:Patient Education DISCONTINUED - LIPID PANEL ( 50268) Indication:Other and unspecified hyperlipidemia Start:27-Nov-2016 Instruction Type:Patient Education DISCONTINUED - METABOLIC STRAUSS EL, COMPREHENSIVE (21705) Indication:Essential hypertension Start:27-Nov-2016 Instruction Type:Patient Education How to access health informa tion online Indication:Essential hypertension Start:27-Nov-2016 Instruction Type:Patient Education How to access health informa tion online - Detail Indication:Essential hypertension Start:27-Nov-2016 Instruction Type:Patient Education Patient Instructions Indication:Essential hypertension Start:27-Nov-2016 Instruction Type:Provider Instructions for Treatment How to access health informa tion online Indication:Neck pain Start:02-Aug-2016 Instruction Type:Patient Education How to access health informa tion online - Detail Indication:Neck pain Start:02-Aug-2016 Instruction Type:Patient Education Patient Instructions Indication:BMI 27.0-27.9,adult Start:02-Aug-2016 Instruction Type:Provider Instructions for Treatment Patient Instructions Indication:Carotid stenosis, symptomatic w/o infarct, right Start:12-Apr-2016 Instruction Type:Provider Instructions for Treatment How to access health informa tion online Indication:UTI symptoms Start:22-Mar-2016 Instruction Type:Patient Education How to access health informa tion online - Detail Indication:UTI symptoms Start:22-Mar-2016 Instruction Type:Patient Education Patient Instructions Indication:UTI symptoms Start:22-Mar-2016 Instruction Type:Provider Instructions for Treatment How to access health informa tion online Indication:Essential hypertension Start:15-Mar-2016 Instruction Type:Patient Education How to access health informa tion online - Detail Indication:Essential hypertension Start:15-Mar-2016 Instruction Type:Patient Education Patient Instructions Indication:Essential hypertension Start:15-Mar-2016 Instruction Type:Provider Instructions for Treatment How to access health informa tion online Indication:Right sided abdominal pain Start:05-Apr-2015 Instruction Type:Patient Education How to access health informa tion online - Detail Indication:Right sided abdominal pain Start:05-Apr-2015 Instruction Type:Patient Education Patient Instructions Indication:Right sided abdominal pain Start:05-Apr-2015 Instruction Type:Provider Instructions for Treatment How to access health informa tion online Indication:Headache Start:12-Feb-2015 Instruction Type:Patient Education How to access health informa tion online - Detail Indication:Headache Start:12-Feb-2015 Instruction Type:Patient Education Patient Instructions Indication:Headache Start:12-Feb-2015 Instruction Type:Provider Instructions for Treatment How to access health informa tion online Indication:Abdominal pain Start:06-Nov-2014 Instruction Type:Patient Education How to access health informa tion online - Detail Indication:Abdominal pain Start:06-Nov-2014 Instruction Type:Patient Education Patient Instructions Indication:Abdominal pain Start:06-Nov-2014 Instruction Type:Provider Instructions for Treatment Patient Instructions Indication:Chronic cough Start:27-May-2013 Instruction Type:Provider Instructions for Treatment Patient Instructions Indication:Essential hypertension Start:12-Mar-2013 Instruction Type:Provider Instructions for Treatment Patient Instructions Indication:Essential hypertension Start:26-Nov-2012 Instruction Type:Provider Instructions for Treatment Patient Instructions Indication:Essential hypertension Start:17-Jan-2012 Instruction Type:Provider Instructions for Treatment [facility]; [facility] Work Phone: Family History No Family History Records FoundUnknown Family Member Name Dates Details Father Comments: at 54 from [place], smoker, ETOH Status:Active Mother Comments: of [place] at 73, s moker, ETOH Status:Active Sister 1 Comments:Hodgkins at 26 Status:Active Unknown Family Member Name Dates Details Father Comments: at 54 [place], smoker, ETOH Status:Active Mother Comments: of [place] at 73, s moker, ETOH Status:Active Sister 1 Comments:Hodgkins at 26 Status:Active Unknown Family Member Name Dates Details Father Comments: at 54 [place], smoker, ETOH Status:Active Mother Comments: of [place] at 73, s moker, ETOH Status:Active Sister 1 Comments:Hodgkins at 26 Status:Active Unknown Family Member Name Dates Details Father Comments: at 54 [place], smoker, ETOH Status:Active Mother Comments: of [place] at 73, s moker, ETOH Status:Active Sister 1 Comments:Hodgkins at 26 Status:Active Unknown Family Member Name Dates Details Father Comments: at 54 [place], smoker, ETOH Status:Active Mother Comments: of [place] at 73, s moker, ETOH Status:Active Sister 1 Comments:Hodgkins at 26 Status:Active Unknown Family Member Name Dates Details Father Comments: at 54 [place], smoker, ETOH Status:Active Mother Comments: of [place] at 73, s moker, ETOH Status:Active Sister 1 Comments:Hodgkins at 26 Status:Active Unknown Family Member Name Dates Details Father Comments: at 54 [place], smoker, ETOH Status:Active Mother Comments: of [place] at 73, s moker, ETOH Status:Active Sister 1 Comments:Hodgkins at 26 Status:Active Unknown Family Member Name Dates Details Father Comments: at 54 [place], smoker, ETOH Status:Active Mother Comments: of [place] at 73, s moker, ETOH Status:Active Sister 1 Comments:Hodgkins at 26 Status:Active Unknown Family Member Name Dates Details Father Comments: at 54 [place], smoker, ETOH Status:Active Mother Comments: of [place] at 73, s moker, ETOH Status:Active Sister 1 Comments:Hodgkins at 26 Status:Active Unknown Family Member Name Dates Details Father Comments: at 54 [place], smoker, ETOH Status:Active Mother Comments: of [place] at 73, s moker, ETOH Status:Active Sister 1 Comments:Hodgkins at 26 Status:Active Unknown Family Member Name Dates Details Father Comments: at 54 [place], smoker, ETOH Status:Active Mother Comments: of [place] at 73, s moker, ETOH Status:Active Sister 1 Comments:Hodgkins at 26 Status:Active Unknown Family Member Name Dates Details Father Comments: at 54 [place], smoker, ETOH Status:Active Mother Comments: of [place] at 73, s moker, ETOH Status:Active Sister 1 Comments:Hodgkins at 26 Status:Active Unknown Family Member Name Dates Details Father Comments: at 54 [place], smoker, ETOH Status:Active Mother Comments: of [place] at 73, s moker, ETOH Status:Active Sister 1 Comments:Hodgkins at 26 Status:Active Unknown Family Member Name Dates Details Father Comments: at 54 [place], smoker, ETOH Status:Active Mother Comments: of [place] at 73, s moker, ETOH Status:Active Sister 1 Comments:Hodgkins at 26 Status:Active Unknown Family Member Name Dates Details Father Comments: at 54 [place], smoker, ETOH Status:Active Mother Comments: of [place] at 73, s moker, ETOH Status:Active Sister 1 Comments:Hodgkins at 26 Status:Active Unknown Family Member Name Dates Details Father Comments: at 54 [place], smoker, ETOH Status:Active Mother Comments: of [place] at 73, s moker, ETOH Status:Active Sister 1 Comments:Hodgkins at 26 Status:Active Unknown Family Member Name Dates Details Father Comments: at 54 [place], smoker, ETOH Status:Active Mother Comments: of [place] at 73, s moker, ETOH Status:Active Sister 1 Comments:Hodgkins at 26 Status:Active Unknown Family Member Name Dates Details Father Comments: at 54 [place], smoker, ETOH Status:Active Mother Comments: of [place] at 73, s moker, ETOH Status:Active Sister 1 Comments:Hodgkins at 26 Status:Active Unknown Family Member Name Dates Details Father Comments: at 54 [place], smoker, ETOH Status:Active Mother Comments: of [place] at 73, s moker, ETOH Status:Active Sister 1 Comments:Hodgkins at 26 Status:Active Unknown Family Member Name Dates Details Father Comments: at 54 [place], smoker, ETOH Status:Active Mother Comments: of [place] at 73, s moker, ETOH Status:Active Sister 1 Comments:Hodgkins at 26 Status:Active Unknown Family Member Name Dates Details Father Comments: at 54 [place], smoker, ETOH Status:Active Mother Comments: of [place] at 73, s moker, ETOH Status:Active Sister 1 Comments:Hodgkins at 26 Status:Active Unknown Family Member Name Dates Details Father Comments: at 54 [place], smoker, ETOH Status:Active Mother Comments: of [place] at 73, s moker, ETOH Status:Active Sister 1 Comments:Hodgkins at 26 Status:Active Unknown Family Member Name Dates Details Father Comments: at 54 [place], smoker, ETOH Status:Active Mother Comments: of [place] at 73, s moker, ETOH Status:Active Sister 1 Comments:Hodgkins at 26 Status:Active Unknown Family Member Name Dates Details Father Comments: at 54 [place], smoker, ETOH Status:Active Mother Comments: of [place] at 73, s moker, ETOH Status:Active Sister 1 Comments:Hodgkins at 26 Status:Active Unknown Family Member Name Dates Details Father Comments: at 54 [place], smoker, ETOH Status:Active Mother Comments: of [place] at 73, s moker, ETOH Status:Active Sister 1 Comments:Hodgkins at 26 Status:Active Unknown Family Member Name Dates Details Father Comments: at 54 [place], smoker, ETOH Status:Active Mother Comments: of [place] at 73, s moker, ETOH Status:Active Sister 1 Comments:Hodgkins at 26 Status:Active Unknown Family Member Name Dates Details Father Comments: at 54 [place], smoker, ETOH Status:Active Mother Comments: of [place] at 73, s moker, ETOH Status:Active Sister 1 Comments:Hodgkins at 26 Status:Active Unknown Family Member Name Dates Details Father Comments: at 54 [place], smoker, ETOH Status:Active Mother Comments: of [place] at 73, s moker, ETOH Status:Active Sister 1 Comments:Hodgkins at 26 Status:Active Unknown Family Member Name Dates Details Father Comments: at 54 [place], smoker, ETOH Status:Active Mother Comments: of [place] at 73, s moker, ETOH Status:Active Sister 1 Comments:Hodgkins at 26 Status:Active Unknown Family Member Name Dates Details Father Comments: at 54 [place], smoker, ETOH Status:Active Mother Comments: of [place] at 73, s moker, ETOH Status:Active Sister 1 Comments:Hodgkins at 26 Status:Active Unknown Family Member Name Dates Details Father Comments: at 54 [place], smoker, ETOH Status:Active Mother Comments: of [place] at 73, s moker, ETOH Status:Active Sister 1 Comments:Hodgkins at 26 Status:Active Unknown Family Member Name Dates Details Father Comments: at 54 [place], smoker, ETOH Status:Active Mother Comments: of [place] at 73, s moker, ETOH Status:Active Sister 1 Comments:Hodgkins at 26 Status:Active Unknown Family Member Name Dates Details Father Comments: at 54 [place], smoker, ETOH Status:Active Mother Comments: of [place] at 73, s moker, ETOH Status:Active Sister 1 Comments:Hodgkins at 26 Status:Active Unknown Family Member Name Dates Details Father Comments: at 54 from [place], smoker, ETOH Status:Active Mother Comments: of [place] at 73, s moker, ETOH Status:Active Sister 1 Comments:Hodgkins at 26 Status:Active Unknown Family Member Name Dates Details Father Comments: at 54 from [place], smoker, ETOH Status:Active Mother Comments: of [place] at 73, s moker, ETOH Status:Active Sister 1 Comments:Hodgkins at 26 Status:Active Instructions Name Dates Details Nonsmoker : How to access he alth information online Indication:Nonsmoker Nonsmoker : How to access he alth information online - Detail Indication:Nonsmoker BMI 28.0-28.9,adult : Patien t Instructions Indication:BMI 28.0-28.9,adult Hypercholesteremia : How to access health information online Indication:Hypercholesteremia Hypercholesteremia : How to access health information online - Detail Indication:Hypercholesteremia Hypercholesteremia : Patient Instructions Indication:Hypercholesteremia Essential hypertension : How to access health information online Indication:Essential hypertension Essential hypertension : How to access health information online - Detail Indication:Essential hypertension Essential hypertension : Pat ient Instructions Indication:Essential hypertension Encounter for screening mamm ogram for breast cancer (Renamed from Encounter for screening mammogram for malignant neoplasm of breast) : Patient Instructions Indication:Encounter for screening mammogram for breast cancer (Renamed from Encounter for screening mammogram for malignant neoplasm of breast) Vitamin D deficiency : Patie nt Instructions Indication:Vitamin D deficiency Atherosclerotic plaque : DIS CONTINUED - LIPID PANEL (01616) Indication:Atherosclerotic plaque Other and unspecified hyperl ipidemia : DISCONTINUED - LIPID PANEL ([id number]) Indication:Other and unspecified hyperlipidemia Essential hypertension : DIS CONTINUED - METABOLIC PANEL, COMPREHENSIVE ([id number]) Indication:Essential hypertension Neck pain : How to access he alth information online Indication:Neck pain Neck pain : How to access he alth information online - Detail Indication:Neck pain BMI 27.0-27.9,adult : Patien t Instructions Indication:BMI 27.0-27.9,adult Carotid stenosis, symptomati c w/o infarct, right : Patient Instructions Indication:Carotid stenosis, symptomatic w/o infarct, right UTI symptoms : How to access health information online Indication:UTI symptoms UTI symptoms : How to access health information online - Detail Indication:UTI symptoms UTI symptoms : Patient Instr uctions Indication:UTI symptoms Right sided abdominal pain : How to access health information online Indication:Right sided abdominal pain Right sided abdominal pain : How to access health information online - Detail Indication:Right sided abdominal pain Right sided abdominal pain : Patient Instructions Indication:Right sided abdominal pain Headache : How to access hea lth information online Indication:Headache Headache : How to access hea lth information online - Detail Indication:Headache Headache : Patient Instructi ons Indication:Headache Abdominal pain : How to acce ss health information online Indication:Abdominal pain Abdominal pain : How to acce ss health information online - Detail Indication:Abdominal pain Abdominal pain : Patient Ins tructions Indication:Abdominal pain Chronic cough : Patient Inst ructions Indication:Chronic cough Name Dates Details Nonsmoker : How to access he alth information online Indication:Nonsmoker Nonsmoker : How to access he alth information online - Detail Indication:Nonsmoker Nonsmoker : Patient Instruct ions Indication:Nonsmoker BMI 28.0-28.9,adult : Patien t Instructions Indication:BMI 28.0-28.9,adult Hypercholesteremia : How to access health information online Indication:Hypercholesteremia Hypercholesteremia : How to access health information online - Detail Indication:Hypercholesteremia Hypercholesteremia : Patient Instructions Indication:Hypercholesteremia Essential hypertension : How to access health information online Indication:Essential hypertension Essential hypertension : How to access health information online - Detail Indication:Essential hypertension Essential hypertension : Pat ient Instructions Indication:Essential hypertension Encounter for screening mamm ogram for breast cancer (Renamed from Encounter for screening mammogram for malignant neoplasm of breast) : Patient Instructions Indication:Encounter for screening mammogram for breast cancer (Renamed from Encounter for screening mammogram for malignant neoplasm of breast) Vitamin D deficiency : Patie nt Instructions Indication:Vitamin D deficiency Atherosclerotic plaque : DIS CONTINUED - LIPID PANEL (38885) Indication:Atherosclerotic plaque Other and unspecified hyperl ipidemia : DISCONTINUED - LIPID PANEL ([id number]) Indication:Other and unspecified hyperlipidemia Essential hypertension : DIS CONTINUED - METABOLIC PANEL, COMPREHENSIVE (74536) Indication:Essential hypertension Neck pain : How to access he alth information online Indication:Neck pain Neck pain : How to access he alth information online - Detail Indication:Neck pain BMI 27.0-27.9,adult : Patien t Instructions Indication:BMI 27.0-27.9,adult Carotid stenosis, symptomati c w/o infarct, right : Patient Instructions Indication:Carotid stenosis, symptomatic w/o infarct, right UTI symptoms : How to access health information online Indication:UTI symptoms UTI symptoms : How to access health information online - Detail Indication:UTI symptoms UTI symptoms : Patient Instr uctions Indication:UTI symptoms Right sided abdominal pain : How to access health information online Indication:Right sided abdominal pain Right sided abdominal pain : How to access health information online - Detail Indication:Right sided abdominal pain Right sided abdominal pain : Patient Instructions Indication:Right sided abdominal pain Headache : How to access hea lth information online Indication:Headache Headache : How to access hea lth information online - Detail Indication:Headache Headache : Patient Instructi ons Indication:Headache Abdominal pain : How to acce ss health information online Indication:Abdominal pain Abdominal pain : How to acce ss health information online - Detail Indication:Abdominal pain Abdominal pain : Patient Ins tructions Indication:Abdominal pain Chronic cough : Patient Inst ructions Indication:Chronic cough Name Dates Details Nonsmoker : How to access he alth information online Indication:Nonsmoker Nonsmoker : How to access he alth information online - Detail Indication:Nonsmoker BMI 28.0-28.9,adult : Patien t Instructions Indication:BMI 28.0-28.9,adult Nonsmoker : Patient Instruct ions Indication:Nonsmoker Hypercholesteremia : How to access health information online Indication:Hypercholesteremia Hypercholesteremia : How to access health information online - Detail Indication:Hypercholesteremia Hypercholesteremia : Patient Instructions Indication:Hypercholesteremia Essential hypertension : How to access health information online Indication:Essential hypertension Essential hypertension : How to access health information online - Detail Indication:Essential hypertension Essential hypertension : Pat ient Instructions Indication:Essential hypertension Encounter for screening mamm ogram for breast cancer (Renamed from Encounter for screening mammogram for malignant neoplasm of breast) : Patient Instructions Indication:Encounter for screening mammogram for breast cancer (Renamed from Encounter for screening mammogram for malignant neoplasm of breast) Vitamin D deficiency : Patie nt Instructions Indication:Vitamin D deficiency Atherosclerotic plaque : DIS CONTINUED - LIPID PANEL ([id number]) Indication:Atherosclerotic plaque Other and unspecified hyperl ipidemia : DISCONTINUED - LIPID PANEL ([id number]) Indication:Other and unspecified hyperlipidemia Essential hypertension : DIS CONTINUED - METABOLIC PANEL, COMPREHENSIVE ([id number]) Indication:Essential hypertension Neck pain : How to access he alth information online Indication:Neck pain Neck pain : How to access he alth information online - Detail Indication:Neck pain BMI 27.0-27.9,adult : Patien t Instructions Indication:BMI 27.0-27.9,adult Carotid stenosis, symptomati c w/o infarct, right : Patient Instructions Indication:Carotid stenosis, symptomatic w/o infarct, right UTI symptoms : How to access health information online Indication:UTI symptoms UTI symptoms : How to access health information online - Detail Indication:UTI symptoms UTI symptoms : Patient Instr uctions Indication:UTI symptoms Right sided abdominal pain : How to access health information online Indication:Right sided abdominal pain Right sided abdominal pain : How to access health information online - Detail Indication:Right sided abdominal pain Right sided abdominal pain : Patient Instructions Indication:Right sided abdominal pain Headache : How to access hea lth information online Indication:Headache Headache : How to access hea lth information online - Detail Indication:Headache Headache : Patient Instructi ons Indication:Headache Abdominal pain : How to acce ss health information online Indication:Abdominal pain Abdominal pain : How to acce ss health information online - Detail Indication:Abdominal pain Abdominal pain : Patient Ins tructions Indication:Abdominal pain Chronic cough : Patient Inst ructions Indication:Chronic cough Name Dates Details Nonsmoker : How to access he alth information online Indication:Nonsmoker Nonsmoker : How to access he alth information online - Detail Indication:Nonsmoker BMI 28.0-28.9,adult : Patien t Instructions Indication:BMI 28.0-28.9,adult Nonsmoker : Patient Instruct ions Indication:Nonsmoker Hypercholesteremia : How to access health information online Indication:Hypercholesteremia Hypercholesteremia : How to access health information online - Detail Indication:Hypercholesteremia Hypercholesteremia : Patient Instructions Indication:Hypercholesteremia Essential hypertension : How to access health information online Indication:Essential hypertension Essential hypertension : How to access health information online - Detail Indication:Essential hypertension Essential hypertension : Pat ient Instructions Indication:Essential hypertension Encounter for screening mamm ogram for breast cancer (Renamed from Encounter for screening mammogram for malignant neoplasm of breast) : Patient Instructions Indication:Encounter for screening mammogram for breast cancer (Renamed from Encounter for screening mammogram for malignant neoplasm of breast) Vitamin D deficiency : Patie nt Instructions Indication:Vitamin D deficiency Atherosclerotic plaque : DIS CONTINUED - LIPID PANEL (98088) Indication:Atherosclerotic plaque Other and unspecified hyperl ipidemia : DISCONTINUED - LIPID PANEL ([id number]) Indication:Other and unspecified hyperlipidemia Essential hypertension : DIS CONTINUED - METABOLIC PANEL, COMPREHENSIVE ([id number]) Indication:Essential hypertension Neck pain : How to access he alth information online Indication:Neck pain Neck pain : How to access he alth information online - Detail Indication:Neck pain BMI 27.0-27.9,adult : Patien t Instructions Indication:BMI 27.0-27.9,adult Carotid stenosis, symptomati c w/o infarct, right : Patient Instructions Indication:Carotid stenosis, symptomatic w/o infarct, right UTI symptoms : How to access health information online Indication:UTI symptoms UTI symptoms : How to access health information online - Detail Indication:UTI symptoms UTI symptoms : Patient Instr uctions Indication:UTI symptoms Right sided abdominal pain : How to access health information online Indication:Right sided abdominal pain Right sided abdominal pain : How to access health information online - Detail Indication:Right sided abdominal pain Right sided abdominal pain : Patient Instructions Indication:Right sided abdominal pain Headache : How to access hea lth information online Indication:Headache Headache : How to access hea lth information online - Detail Indication:Headache Headache : Patient Instructi ons Indication:Headache Abdominal pain : How to acce ss health information online Indication:Abdominal pain Abdominal pain : How to acce ss health information online - Detail Indication:Abdominal pain Abdominal pain : Patient Ins tructions Indication:Abdominal pain Chronic cough : Patient Inst ructions Indication:Chronic cough Name Dates Details How to access health informa tion online - Detail Indication:Nonsmoker Start:06-Sep-2018 Instruction Type:Patient Education How to access health informa tion online Indication:Nonsmoker Start:06-Sep-2018 Instruction Type:Patient Education Patient Instructions Indication:Alzheimer's dementia Start:06-Sep-2018 Instruction Type:Provider Instructions for Treatment How to access health informa tion online Indication:Nonsmoker Start:10-May-2018 Instruction Type:Patient Education How to access health informa tion online - Detail Indication:Nonsmoker Start:10-May-2018 Instruction Type:Patient Education Patient Instructions Indication:BMI 28.0-28.9,adult Start:10-May-2018 Instruction Type:Provider Instructions for Treatment How to access health informa tion online Indication:Nonsmoker Start:15-Jan-2018 Instruction Type:Patient Education How to access health informa tion online - Detail Indication:Nonsmoker Start:15-Jan-2018 Instruction Type:Patient Education Patient Instructions Indication:Nonsmoker Start:15-Jan-2018 Instruction Type:Provider Instructions for Treatment How to access health informa tion online Indication:Nonsmoker Start:18-Dec-2017 Instruction Type:Patient Education How to access health informa tion online - Detail Indication:Nonsmoker Start:18-Dec-2017 Instruction Type:Patient Education Patient Instructions Indication:BMI 28.0-28.9,adult Start:18-Dec-2017 Instruction Type:Provider Instructions for Treatment How to access health informa tion online Indication:Hypercholesteremia Start:07-Aug-2017 Instruction Type:Patient Education How to access health informa tion online - Detail Indication:Hypercholesteremia Start:07-Aug-2017 Instruction Type:Patient Education Patient Instructions Indication:Hypercholesteremia Start:07-Aug-2017 Instruction Type:Provider Instructions for Treatment How to access health informa tion online Indication:Essential hypertension Start:12-Jun-2017 Instruction Type:Patient Education How to access health informa tion online - Detail Indication:Essential hypertension Start:12-Jun-2017 Instruction Type:Patient Education Patient Instructions Indication:Essential hypertension Start:12-Jun-2017 Instruction Type:Provider Instructions for Treatment How to access health informa tion online Indication:Essential hypertension Start:06-Apr-2017 Instruction Type:Patient Education How to access health informa tion online - Detail Indication:Essential hypertension Start:06-Apr-2017 Instruction Type:Patient Education Patient Instructions Indication:Encounter for screening mammogram for breast cancer (Renamed from Encounter for screening mammogram for malignant neoplasm of breast) Start:06-Apr-2017 Instruction Type:Provider Instructions for Treatment Patient Instructions Indication:Vitamin D deficiency Start:27-Nov-2016 Instruction Type:Provider Instructions for Treatment DISCONTINUED - LIPID PANEL ( [id number]) Indication:Atherosclerotic plaque Start:27-Nov-2016 Instruction Type:Patient Education DISCONTINUED - LIPID PANEL ( [id number]) Indication:Other and unspecified hyperlipidemia Start:27-Nov-2016 Instruction Type:Patient Education DISCONTINUED - METABOLIC STRAUSS EL, COMPREHENSIVE ([id number]) Indication:Essential hypertension Start:27-Nov-2016 Instruction Type:Patient Education How to access health informa tion online Indication:Essential hypertension Start:27-Nov-2016 Instruction Type:Patient Education How to access health informa tion online - Detail Indication:Essential hypertension Start:27-Nov-2016 Instruction Type:Patient Education Patient Instructions Indication:Essential hypertension Start:27-Nov-2016 Instruction Type:Provider Instructions for Treatment How to access health informa tion online Indication:Neck pain Start:02-Aug-2016 Instruction Type:Patient Education How to access health informa tion online - Detail Indication:Neck pain Start:02-Aug-2016 Instruction Type:Patient Education Patient Instructions Indication:BMI 27.0-27.9,adult Start:02-Aug-2016 Instruction Type:Provider Instructions for Treatment Patient Instructions Indication:Carotid stenosis, symptomatic w/o infarct, right Start:12-Apr-2016 Instruction Type:Provider Instructions for Treatment How to access health informa tion online Indication:UTI symptoms Start:22-Mar-2016 Instruction Type:Patient Education How to access health informa tion online - Detail Indication:UTI symptoms Start:22-Mar-2016 Instruction Type:Patient Education Patient Instructions Indication:UTI symptoms Start:22-Mar-2016 Instruction Type:Provider Instructions for Treatment How to access health informa tion online Indication:Essential hypertension Start:15-Mar-2016 Instruction Type:Patient Education How to access health informa tion online - Detail Indication:Essential hypertension Start:15-Mar-2016 Instruction Type:Patient Education Patient Instructions Indication:Essential hypertension Start:15-Mar-2016 Instruction Type:Provider Instructions for Treatment How to access health informa tion online Indication:Right sided abdominal pain Start:05-Apr-2015 Instruction Type:Patient Education How to access health informa tion online - Detail Indication:Right sided abdominal pain Start:05-Apr-2015 Instruction Type:Patient Education Patient Instructions Indication:Right sided abdominal pain Start:05-Apr-2015 Instruction Type:Provider Instructions for Treatment How to access health informa tion online Indication:Headache Start:12-Feb-2015 Instruction Type:Patient Education How to access health informa tion online - Detail Indication:Headache Start:12-Feb-2015 Instruction Type:Patient Education Patient Instructions Indication:Headache Start:12-Feb-2015 Instruction Type:Provider Instructions for Treatment How to access health informa tion online Indication:Abdominal pain Start:06-Nov-2014 Instruction Type:Patient Education How to access health informa tion online - Detail Indication:Abdominal pain Start:06-Nov-2014 Instruction Type:Patient Education Patient Instructions Indication:Abdominal pain Start:06-Nov-2014 Instruction Type:Provider Instructions for Treatment Patient Instructions Indication:Chronic cough Start:27-May-2013 Instruction Type:Provider Instructions for Treatment Patient Instructions Indication:Essential hypertension Start:12-Mar-2013 Instruction Type:Provider Instructions for Treatment Patient Instructions Indication:Essential hypertension Start:26-Nov-2012 Instruction Type:Provider Instructions for Treatment Patient Instructions Indication:Essential hypertension Start:17-Jan-2012 Instruction Type:Provider Instructions for Treatment Name Dates Details How to access health informa tion online Indication:Nonsmoker Start:22-Jul-2019 Instruction Type:Patient Education How to access health informa tion online - Detail Indication:Nonsmoker Start:22-Jul-2019 Instruction Type:Patient Education Patient Instructions Indication:BMI 29.0-29.9,adult Start:22-Jul-2019 Instruction Type:Provider Instructions for Treatment How to access health informa tion online Indication:BMI 29.0-29.9,adult Start:07-Apr-2019 Instruction Type:Patient Education How to access health informa tion online - Detail Indication:BMI 29.0-29.9,adult Start:07-Apr-2019 Instruction Type:Patient Education Patient Instructions Indication:Hand injury, left, initial encounter Start:07-Apr-2019 Instruction Type:Provider Instructions for Treatment How to access health informa tion online - Detail Indication:Nonsmoker Start:06-Sep-2018 Instruction Type:Patient Education How to access health informa tion online Indication:Nonsmoker Start:06-Sep-2018 Instruction Type:Patient Education Patient Instructions Indication:Alzheimer's dementia Start:06-Sep-2018 Instruction Type:Provider Instructions for Treatment How to access health informa tion online Indication:Nonsmoker Start:10-May-2018 Instruction Type:Patient Education How to access health informa tion online - Detail Indication:Nonsmoker Start:10-May-2018 Instruction Type:Patient Education Patient Instructions Indication:BMI 28.0-28.9,adult Start:10-May-2018 Instruction Type:Provider Instructions for Treatment How to access health informa tion online Indication:Nonsmoker Start:15-Jan-2018 Instruction Type:Patient Education How to access health informa tion online - Detail Indication:Nonsmoker Start:15-Jan-2018 Instruction Type:Patient Education Patient Instructions Indication:Nonsmoker Start:15-Jan-2018 Instruction Type:Provider Instructions for Treatment How to access health informa tion online Indication:Nonsmoker Start:18-Dec-2017 Instruction Type:Patient Education How to access health informa tion online - Detail Indication:Nonsmoker Start:18-Dec-2017 Instruction Type:Patient Education Patient Instructions Indication:BMI 28.0-28.9,adult Start:18-Dec-2017 Instruction Type:Provider Instructions for Treatment How to access health informa tion online Indication:Hypercholesteremia Start:07-Aug-2017 Instruction Type:Patient Education How to access health informa tion online - Detail Indication:Hypercholesteremia Start:07-Aug-2017 Instruction Type:Patient Education Patient Instructions Indication:Hypercholesteremia Start:07-Aug-2017 Instruction Type:Provider Instructions for Treatment How to access health informa tion online Indication:Essential hypertension Start:12-Jun-2017 Instruction Type:Patient Education How to access health informa tion online - Detail Indication:Essential hypertension Start:12-Jun-2017 Instruction Type:Patient Education Patient Instructions Indication:Essential hypertension Start:12-Jun-2017 Instruction Type:Provider Instructions for Treatment How to access health informa tion online Indication:Essential hypertension Start:06-Apr-2017 Instruction Type:Patient Education How to access health informa tion online - Detail Indication:Essential hypertension Start:06-Apr-2017 Instruction Type:Patient Education Patient Instructions Indication:Encounter for screening mammogram for breast cancer (Renamed from Encounter for screening mammogram for malignant neoplasm of breast) Start:06-Apr-2017 Instruction Type:Provider Instructions for Treatment Patient Instructions Indication:Vitamin D deficiency Start:27-Nov-2016 Instruction Type:Provider Instructions for Treatment DISCONTINUED - LIPID PANEL ( [id number]) Indication:Atherosclerotic plaque Start:27-Nov-2016 Instruction Type:Patient Education DISCONTINUED - LIPID PANEL ( [id number]) Indication:Other and unspecified hyperlipidemia Start:27-Nov-2016 Instruction Type:Patient Education DISCONTINUED - METABOLIC STRAUSS EL, COMPREHENSIVE ([id number]) Indication:Essential hypertension Start:27-Nov-2016 Instruction Type:Patient Education How to access health informa tion online Indication:Essential hypertension Start:27-Nov-2016 Instruction Type:Patient Education How to access health informa tion online - Detail Indication:Essential hypertension Start:27-Nov-2016 Instruction Type:Patient Education Patient Instructions Indication:Essential hypertension Start:27-Nov-2016 Instruction Type:Provider Instructions for Treatment How to access health informa tion online Indication:Neck pain Start:02-Aug-2016 Instruction Type:Patient Education How to access health informa tion online - Detail Indication:Neck pain Start:02-Aug-2016 Instruction Type:Patient Education Patient Instructions Indication:BMI 27.0-27.9,adult Start:02-Aug-2016 Instruction Type:Provider Instructions for Treatment Patient Instructions Indication:Carotid stenosis, symptomatic w/o infarct, right Start:12-Apr-2016 Instruction Type:Provider Instructions for Treatment How to access health informa tion online Indication:UTI symptoms Start:22-Mar-2016 Instruction Type:Patient Education How to access health informa tion online - Detail Indication:UTI symptoms Start:22-Mar-2016 Instruction Type:Patient Education Patient Instructions Indication:UTI symptoms Start:22-Mar-2016 Instruction Type:Provider Instructions for Treatment How to access health informa tion online Indication:Essential hypertension Start:15-Mar-2016 Instruction Type:Patient Education How to access health informa tion online - Detail Indication:Essential hypertension Start:15-Mar-2016 Instruction Type:Patient Education Patient Instructions Indication:Essential hypertension Start:15-Mar-2016 Instruction Type:Provider Instructions for Treatment How to access health informa tion online Indication:Right sided abdominal pain Start:05-Apr-2015 Instruction Type:Patient Education How to access health informa tion online - Detail Indication:Right sided abdominal pain Start:05-Apr-2015 Instruction Type:Patient Education Patient Instructions Indication:Right sided abdominal pain Start:05-Apr-2015 Instruction Type:Provider Instructions for Treatment How to access health informa tion online Indication:Headache Start:12-Feb-2015 Instruction Type:Patient Education How to access health informa tion online - Detail Indication:Headache Start:12-Feb-2015 Instruction Type:Patient Education Patient Instructions Indication:Headache Start:12-Feb-2015 Instruction Type:Provider Instructions for Treatment How to access health informa tion online Indication:Abdominal pain Start:06-Nov-2014 Instruction Type:Patient Education How to access health informa tion online - Detail Indication:Abdominal pain Start:06-Nov-2014 Instruction Type:Patient Education Patient Instructions Indication:Abdominal pain Start:06-Nov-2014 Instruction Type:Provider Instructions for Treatment Patient Instructions Indication:Chronic cough Start:27-May-2013 Instruction Type:Provider Instructions for Treatment Patient Instructions Indication:Essential hypertension Start:12-Mar-2013 Instruction Type:Provider Instructions for Treatment Patient Instructions Indication:Essential hypertension Start:26-Nov-2012 Instruction Type:Provider Instructions for Treatment Patient Instructions Indication:Essential hypertension Start:17-Jan-2012 Instruction Type:Provider Instructions for Treatment Name Dates Details How to access health informa tion online Indication:Nonsmoker Start:22-Jul-2019 Instruction Type:Patient Education How to access health informa tion online - Detail Indication:Nonsmoker Start:22-Jul-2019 Instruction Type:Patient Education Patient Instructions Indication:BMI 29.0-29.9,adult Start:22-Jul-2019 Instruction Type:Provider Instructions for Treatment How to access health informa tion online Indication:BMI 29.0-29.9,adult Start:07-Apr-2019 Instruction Type:Patient Education How to access health informa tion online - Detail Indication:BMI 29.0-29.9,adult Start:07-Apr-2019 Instruction Type:Patient Education Patient Instructions Indication:Hand injury, left, initial encounter Start:07-Apr-2019 Instruction Type:Provider Instructions for Treatment How to access health informa tion online - Detail Indication:Nonsmoker Start:06-Sep-2018 Instruction Type:Patient Education How to access health informa tion online Indication:Nonsmoker Start:06-Sep-2018 Instruction Type:Patient Education Patient Instructions Indication:Alzheimer's dementia Start:06-Sep-2018 Instruction Type:Provider Instructions for Treatment How to access health informa tion online Indication:Nonsmoker Start:10-May-2018 Instruction Type:Patient Education How to access health informa tion online - Detail Indication:Nonsmoker Start:10-May-2018 Instruction Type:Patient Education Patient Instructions Indication:BMI 28.0-28.9,adult Start:10-May-2018 Instruction Type:Provider Instructions for Treatment How to access health informa tion online Indication:Nonsmoker Start:15-Jan-2018 Instruction Type:Patient Education How to access health informa tion online - Detail Indication:Nonsmoker Start:15-Jan-2018 Instruction Type:Patient Education Patient Instructions Indication:Nonsmoker Start:15-Jan-2018 Instruction Type:Provider Instructions for Treatment How to access health informa tion online Indication:Nonsmoker Start:18-Dec-2017 Instruction Type:Patient Education How to access health informa tion online - Detail Indication:Nonsmoker Start:18-Dec-2017 Instruction Type:Patient Education Patient Instructions Indication:BMI 28.0-28.9,adult Start:18-Dec-2017 Instruction Type:Provider Instructions for Treatment How to access health informa tion online Indication:Hypercholesteremia Start:07-Aug-2017 Instruction Type:Patient Education How to access health informa tion online - Detail Indication:Hypercholesteremia Start:07-Aug-2017 Instruction Type:Patient Education Patient Instructions Indication:Hypercholesteremia Start:07-Aug-2017 Instruction Type:Provider Instructions for Treatment How to access health informa tion online Indication:Essential hypertension Start:12-Jun-2017 Instruction Type:Patient Education How to access health informa tion online - Detail Indication:Essential hypertension Start:12-Jun-2017 Instruction Type:Patient Education Patient Instructions Indication:Essential hypertension Start:12-Jun-2017 Instruction Type:Provider Instructions for Treatment How to access health informa tion online Indication:Essential hypertension Start:06-Apr-2017 Instruction Type:Patient Education How to access health informa tion online - Detail Indication:Essential hypertension Start:06-Apr-2017 Instruction Type:Patient Education Patient Instructions Indication:Encounter for screening mammogram for breast cancer (Renamed from Encounter for screening mammogram for malignant neoplasm of breast) Start:06-Apr-2017 Instruction Type:Provider Instructions for Treatment Patient Instructions Indication:Vitamin D deficiency Start:27-Nov-2016 Instruction Type:Provider Instructions for Treatment DISCONTINUED - LIPID PANEL ( [id number]) Indication:Atherosclerotic plaque Start:27-Nov-2016 Instruction Type:Patient Education DISCONTINUED - LIPID PANEL ( [id number]) Indication:Other and unspecified hyperlipidemia Start:27-Nov-2016 Instruction Type:Patient Education DISCONTINUED - METABOLIC STRAUSS EL, COMPREHENSIVE ([id number]) Indication:Essential hypertension Start:27-Nov-2016 Instruction Type:Patient Education How to access health informa tion online Indication:Essential hypertension Start:27-Nov-2016 Instruction Type:Patient Education How to access health informa tion online - Detail Indication:Essential hypertension Start:27-Nov-2016 Instruction Type:Patient Education Patient Instructions Indication:Essential hypertension Start:27-Nov-2016 Instruction Type:Provider Instructions for Treatment How to access health informa tion online Indication:Neck pain Start:02-Aug-2016 Instruction Type:Patient Education How to access health informa tion online - Detail Indication:Neck pain Start:02-Aug-2016 Instruction Type:Patient Education Patient Instructions Indication:BMI 27.0-27.9,adult Start:02-Aug-2016 Instruction Type:Provider Instructions for Treatment Patient Instructions Indication:Carotid stenosis, symptomatic w/o infarct, right Start:12-Apr-2016 Instruction Type:Provider Instructions for Treatment How to access health informa tion online Indication:UTI symptoms Start:22-Mar-2016 Instruction Type:Patient Education How to access health informa tion online - Detail Indication:UTI symptoms Start:22-Mar-2016 Instruction Type:Patient Education Patient Instructions Indication:UTI symptoms Start:22-Mar-2016 Instruction Type:Provider Instructions for Treatment How to access health informa tion online Indication:Essential hypertension Start:15-Mar-2016 Instruction Type:Patient Education How to access health informa tion online - Detail Indication:Essential hypertension Start:15-Mar-2016 Instruction Type:Patient Education Patient Instructions Indication:Essential hypertension Start:15-Mar-2016 Instruction Type:Provider Instructions for Treatment How to access health informa tion online Indication:Right sided abdominal pain Start:05-Apr-2015 Instruction Type:Patient Education How to access health informa tion online - Detail Indication:Right sided abdominal pain Start:05-Apr-2015 Instruction Type:Patient Education Patient Instructions Indication:Right sided abdominal pain Start:05-Apr-2015 Instruction Type:Provider Instructions for Treatment How to access health informa tion online Indication:Headache Start:12-Feb-2015 Instruction Type:Patient Education How to access health informa tion online - Detail Indication:Headache Start:12-Feb-2015 Instruction Type:Patient Education Patient Instructions Indication:Headache Start:12-Feb-2015 Instruction Type:Provider Instructions for Treatment How to access health informa tion online Indication:Abdominal pain Start:06-Nov-2014 Instruction Type:Patient Education How to access health informa tion online - Detail Indication:Abdominal pain Start:06-Nov-2014 Instruction Type:Patient Education Patient Instructions Indication:Abdominal pain Start:06-Nov-2014 Instruction Type:Provider Instructions for Treatment Patient Instructions Indication:Chronic cough Start:27-May-2013 Instruction Type:Provider Instructions for Treatment Patient Instructions Indication:Essential hypertension Start:12-Mar-2013 Instruction Type:Provider Instructions for Treatment Patient Instructions Indication:Essential hypertension Start:26-Nov-2012 Instruction Type:Provider Instructions for Treatment Patient Instructions Indication:Essential hypertension Start:17-Jan-2012 Instruction Type:Provider Instructions for Treatment Name Dates Details How to access health informa tion online Indication:Nonsmoker Start:23-Jan-2020 Instruction Type:Patient Education How to access health informa tion online - Detail Indication:Nonsmoker Start:23-Jan-2020 Instruction Type:Patient Education Patient Instructions Indication:BMI 30.0-30.9,adult Start:23-Jan-2020 Instruction Type:Provider Instructions for Treatment How to access health informa tion online Indication:Nonsmoker Start:22-Jul-2019 Instruction Type:Patient Education How to access health informa tion online - Detail Indication:Nonsmoker Start:22-Jul-2019 Instruction Type:Patient Education Patient Instructions Indication:BMI 29.0-29.9,adult Start:22-Jul-2019 Instruction Type:Provider Instructions for Treatment How to access health informa tion online Indication:BMI 29.0-29.9,adult Start:07-Apr-2019 Instruction Type:Patient Education How to access health informa tion online - Detail Indication:BMI 29.0-29.9,adult Start:07-Apr-2019 Instruction Type:Patient Education Patient Instructions Indication:Hand injury, left, initial encounter Start:07-Apr-2019 Instruction Type:Provider Instructions for Treatment How to access health informa tion online - Detail Indication:Nonsmoker Start:06-Sep-2018 Instruction Type:Patient Education How to access health informa tion online Indication:Nonsmoker Start:06-Sep-2018 Instruction Type:Patient Education Patient Instructions Indication:Alzheimer's dementia Start:06-Sep-2018 Instruction Type:Provider Instructions for Treatment How to access health informa tion online Indication:Nonsmoker Start:10-May-2018 Instruction Type:Patient Education How to access health informa tion online - Detail Indication:Nonsmoker Start:10-May-2018 Instruction Type:Patient Education Patient Instructions Indication:BMI 28.0-28.9,adult Start:10-May-2018 Instruction Type:Provider Instructions for Treatment How to access health informa tion online Indication:Nonsmoker Start:15-Jan-2018 Instruction Type:Patient Education How to access health informa tion online - Detail Indication:Nonsmoker Start:15-Jan-2018 Instruction Type:Patient Education Patient Instructions Indication:Nonsmoker Start:15-Jan-2018 Instruction Type:Provider Instructions for Treatment How to access health informa tion online Indication:Nonsmoker Start:18-Dec-2017 Instruction Type:Patient Education How to access health informa tion online - Detail Indication:Nonsmoker Start:18-Dec-2017 Instruction Type:Patient Education Patient Instructions Indication:BMI 28.0-28.9,adult Start:18-Dec-2017 Instruction Type:Provider Instructions for Treatment How to access health informa tion online Indication:Hypercholesteremia Start:07-Aug-2017 Instruction Type:Patient Education How to access health informa tion online - Detail Indication:Hypercholesteremia Start:07-Aug-2017 Instruction Type:Patient Education Patient Instructions Indication:Hypercholesteremia Start:07-Aug-2017 Instruction Type:Provider Instructions for Treatment How to access health informa tion online Indication:Essential hypertension Start:12-Jun-2017 Instruction Type:Patient Education How to access health informa tion online - Detail Indication:Essential hypertension Start:12-Jun-2017 Instruction Type:Patient Education Patient Instructions Indication:Essential hypertension Start:12-Jun-2017 Instruction Type:Provider Instructions for Treatment How to access health informa tion online Indication:Essential hypertension Start:06-Apr-2017 Instruction Type:Patient Education How to access health informa tion online - Detail Indication:Essential hypertension Start:06-Apr-2017 Instruction Type:Patient Education Patient Instructions Indication:Encounter for screening mammogram for breast cancer (Renamed from Encounter for screening mammogram for malignant neoplasm of breast) Start:06-Apr-2017 Instruction Type:Provider Instructions for Treatment Patient Instructions Indication:Vitamin D deficiency Start:27-Nov-2016 Instruction Type:Provider Instructions for Treatment DISCONTINUED - LIPID PANEL ( [id number]) Indication:Atherosclerotic plaque Start:27-Nov-2016 Instruction Type:Patient Education DISCONTINUED - LIPID PANEL ( [id number]) Indication:Other and unspecified hyperlipidemia Start:27-Nov-2016 Instruction Type:Patient Education DISCONTINUED - METABOLIC STRAUSS EL, COMPREHENSIVE ([id number]) Indication:Essential hypertension Start:27-Nov-2016 Instruction Type:Patient Education How to access health informa tion online Indication:Essential hypertension Start:27-Nov-2016 Instruction Type:Patient Education How to access health informa tion online - Detail Indication:Essential hypertension Start:27-Nov-2016 Instruction Type:Patient Education Patient Instructions Indication:Essential hypertension Start:27-Nov-2016 Instruction Type:Provider Instructions for Treatment How to access health informa tion online Indication:Neck pain Start:02-Aug-2016 Instruction Type:Patient Education How to access health informa tion online - Detail Indication:Neck pain Start:02-Aug-2016 Instruction Type:Patient Education Patient Instructions Indication:BMI 27.0-27.9,adult Start:02-Aug-2016 Instruction Type:Provider Instructions for Treatment Patient Instructions Indication:Carotid stenosis, symptomatic w/o infarct, right Start:12-Apr-2016 Instruction Type:Provider Instructions for Treatment How to access health informa tion online Indication:UTI symptoms Start:22-Mar-2016 Instruction Type:Patient Education How to access health informa tion online - Detail Indication:UTI symptoms Start:22-Mar-2016 Instruction Type:Patient Education Patient Instructions Indication:UTI symptoms Start:22-Mar-2016 Instruction Type:Provider Instructions for Treatment How to access health informa tion online Indication:Essential hypertension Start:15-Mar-2016 Instruction Type:Patient Education How to access health informa tion online - Detail Indication:Essential hypertension Start:15-Mar-2016 Instruction Type:Patient Education Patient Instructions Indication:Essential hypertension Start:15-Mar-2016 Instruction Type:Provider Instructions for Treatment How to access health informa tion online Indication:Right sided abdominal pain Start:05-Apr-2015 Instruction Type:Patient Education How to access health informa tion online - Detail Indication:Right sided abdominal pain Start:05-Apr-2015 Instruction Type:Patient Education Patient Instructions Indication:Right sided abdominal pain Start:05-Apr-2015 Instruction Type:Provider Instructions for Treatment How to access health informa tion online Indication:Headache Start:12-Feb-2015 Instruction Type:Patient Education How to access health informa tion online - Detail Indication:Headache Start:12-Feb-2015 Instruction Type:Patient Education Patient Instructions Indication:Headache Start:12-Feb-2015 Instruction Type:Provider Instructions for Treatment How to access health informa tion online Indication:Abdominal pain Start:06-Nov-2014 Instruction Type:Patient Education How to access health informa tion online - Detail Indication:Abdominal pain Start:06-Nov-2014 Instruction Type:Patient Education Patient Instructions Indication:Abdominal pain Start:06-Nov-2014 Instruction Type:Provider Instructions for Treatment Patient Instructions Indication:Chronic cough Start:27-May-2013 Instruction Type:Provider Instructions for Treatment Patient Instructions Indication:Essential hypertension Start:12-Mar-2013 Instruction Type:Provider Instructions for Treatment Patient Instructions Indication:Essential hypertension Start:26-Nov-2012 Instruction Type:Provider Instructions for Treatment Patient Instructions Indication:Essential hypertension Start:17-Jan-2012 Instruction Type:Provider Instructions for Treatment Name Dates Details How to access health informa tion online - Detail Indication:Nonsmoker Start:06-Sep-2018 Instruction Type:Patient Education How to access health informa tion online Indication:Nonsmoker Start:06-Sep-2018 Instruction Type:Patient Education Patient Instructions Indication:Nonsmoker Start:06-Sep-2018 Instruction Type:Provider Instructions for Treatment How to access health informa tion online Indication:Nonsmoker Start:10-May-2018 Instruction Type:Patient Education How to access health informa tion online - Detail Indication:Nonsmoker Start:10-May-2018 Instruction Type:Patient Education Patient Instructions Indication:BMI 28.0-28.9,adult Start:10-May-2018 Instruction Type:Provider Instructions for Treatment How to access health informa tion online Indication:Nonsmoker Start:15-Jan-2018 Instruction Type:Patient Education How to access health informa tion online - Detail Indication:Nonsmoker Start:15-Jan-2018 Instruction Type:Patient Education Patient Instructions Indication:Nonsmoker Start:15-Jan-2018 Instruction Type:Provider Instructions for Treatment How to access health informa tion online Indication:Nonsmoker Start:18-Dec-2017 Instruction Type:Patient Education How to access health informa tion online - Detail Indication:Nonsmoker Start:18-Dec-2017 Instruction Type:Patient Education Patient Instructions Indication:BMI 28.0-28.9,adult Start:18-Dec-2017 Instruction Type:Provider Instructions for Treatment How to access health informa tion online Indication:Hypercholesteremia Start:07-Aug-2017 Instruction Type:Patient Education How to access health informa tion online - Detail Indication:Hypercholesteremia Start:07-Aug-2017 Instruction Type:Patient Education Patient Instructions Indication:Hypercholesteremia Start:07-Aug-2017 Instruction Type:Provider Instructions for Treatment How to access health informa tion online Indication:Essential hypertension Start:12-Jun-2017 Instruction Type:Patient Education How to access health informa tion online - Detail Indication:Essential hypertension Start:12-Jun-2017 Instruction Type:Patient Education Patient Instructions Indication:Essential hypertension Start:12-Jun-2017 Instruction Type:Provider Instructions for Treatment How to access health informa tion online Indication:Essential hypertension Start:06-Apr-2017 Instruction Type:Patient Education How to access health informa tion online - Detail Indication:Essential hypertension Start:06-Apr-2017 Instruction Type:Patient Education Patient Instructions Indication:Encounter for screening mammogram for breast cancer (Renamed from Encounter for screening mammogram for malignant neoplasm of breast) Start:06-Apr-2017 Instruction Type:Provider Instructions for Treatment Patient Instructions Indication:Vitamin D deficiency Start:27-Nov-2016 Instruction Type:Provider Instructions for Treatment DISCONTINUED - LIPID PANEL ( [id number]) Indication:Atherosclerotic plaque Start:27-Nov-2016 Instruction Type:Patient Education DISCONTINUED - LIPID PANEL ( [id number]) Indication:Other and unspecified hyperlipidemia Start:27-Nov-2016 Instruction Type:Patient Education DISCONTINUED - METABOLIC STRAUSS EL, COMPREHENSIVE ([id number]) Indication:Essential hypertension Start:27-Nov-2016 Instruction Type:Patient Education How to access health informa tion online Indication:Essential hypertension Start:27-Nov-2016 Instruction Type:Patient Education How to access health informa tion online - Detail Indication:Essential hypertension Start:27-Nov-2016 Instruction Type:Patient Education Patient Instructions Indication:Essential hypertension Start:27-Nov-2016 Instruction Type:Provider Instructions for Treatment How to access health informa tion online Indication:Neck pain Start:02-Aug-2016 Instruction Type:Patient Education How to access health informa tion online - Detail Indication:Neck pain Start:02-Aug-2016 Instruction Type:Patient Education Patient Instructions Indication:BMI 27.0-27.9,adult Start:02-Aug-2016 Instruction Type:Provider Instructions for Treatment Patient Instructions Indication:Carotid stenosis, symptomatic w/o infarct, right Start:12-Apr-2016 Instruction Type:Provider Instructions for Treatment How to access health informa tion online Indication:UTI symptoms Start:22-Mar-2016 Instruction Type:Patient Education How to access health informa tion online - Detail Indication:UTI symptoms Start:22-Mar-2016 Instruction Type:Patient Education Patient Instructions Indication:UTI symptoms Start:22-Mar-2016 Instruction Type:Provider Instructions for Treatment How to access health informa tion online Indication:Essential hypertension Start:15-Mar-2016 Instruction Type:Patient Education How to access health informa tion online - Detail Indication:Essential hypertension Start:15-Mar-2016 Instruction Type:Patient Education Patient Instructions Indication:Essential hypertension Start:15-Mar-2016 Instruction Type:Provider Instructions for Treatment How to access health informa tion online Indication:Right sided abdominal pain Start:05-Apr-2015 Instruction Type:Patient Education How to access health informa tion online - Detail Indication:Right sided abdominal pain Start:05-Apr-2015 Instruction Type:Patient Education Patient Instructions Indication:Right sided abdominal pain Start:05-Apr-2015 Instruction Type:Provider Instructions for Treatment How to access health informa tion online Indication:Headache Start:12-Feb-2015 Instruction Type:Patient Education How to access health informa tion online - Detail Indication:Headache Start:12-Feb-2015 Instruction Type:Patient Education Patient Instructions Indication:Headache Start:12-Feb-2015 Instruction Type:Provider Instructions for Treatment How to access health informa tion online Indication:Abdominal pain Start:06-Nov-2014 Instruction Type:Patient Education How to access health informa tion online - Detail Indication:Abdominal pain Start:06-Nov-2014 Instruction Type:Patient Education Patient Instructions Indication:Abdominal pain Start:06-Nov-2014 Instruction Type:Provider Instructions for Treatment Patient Instructions Indication:Chronic cough Start:27-May-2013 Instruction Type:Provider Instructions for Treatment Patient Instructions Indication:Essential hypertension Start:12-Mar-2013 Instruction Type:Provider Instructions for Treatment Patient Instructions Indication:Essential hypertension Start:26-Nov-2012 Instruction Type:Provider Instructions for Treatment Patient Instructions Indication:Essential hypertension Start:17-Jan-2012 Instruction Type:Provider Instructions for Treatment Name Dates Details How to access health informa tion online Indication:Nonsmoker Start:23-Jan-2020 Instruction Type:Patient Education How to access health informa tion online - Detail Indication:Nonsmoker Start:23-Jan-2020 Instruction Type:Patient Education Patient Instructions Indication:BMI 30.0-30.9,adult Start:23-Jan-2020 Instruction Type:Provider Instructions for Treatment How to access health informa tion online Indication:Nonsmoker Start:22-Jul-2019 Instruction Type:Patient Education How to access health informa tion online - Detail Indication:Nonsmoker Start:22-Jul-2019 Instruction Type:Patient Education Patient Instructions Indication:BMI 29.0-29.9,adult Start:22-Jul-2019 Instruction Type:Provider Instructions for Treatment How to access health informa tion online Indication:BMI 29.0-29.9,adult Start:07-Apr-2019 Instruction Type:Patient Education How to access health informa tion online - Detail Indication:BMI 29.0-29.9,adult Start:07-Apr-2019 Instruction Type:Patient Education Patient Instructions Indication:Hand injury, left, initial encounter Start:07-Apr-2019 Instruction Type:Provider Instructions for Treatment How to access health informa tion online - Detail Indication:Nonsmoker Start:06-Sep-2018 Instruction Type:Patient Education How to access health informa tion online Indication:Nonsmoker Start:06-Sep-2018 Instruction Type:Patient Education Patient Instructions Indication:Alzheimer's dementia Start:06-Sep-2018 Instruction Type:Provider Instructions for Treatment How to access health informa tion online Indication:Nonsmoker Start:10-May-2018 Instruction Type:Patient Education How to access health informa tion online - Detail Indication:Nonsmoker Start:10-May-2018 Instruction Type:Patient Education Patient Instructions Indication:BMI 28.0-28.9,adult Start:10-May-2018 Instruction Type:Provider Instructions for Treatment How to access health informa tion online Indication:Nonsmoker Start:15-Jan-2018 Instruction Type:Patient Education How to access health informa tion online - Detail Indication:Nonsmoker Start:15-Jan-2018 Instruction Type:Patient Education Patient Instructions Indication:Nonsmoker Start:15-Jan-2018 Instruction Type:Provider Instructions for Treatment How to access health informa tion online Indication:Nonsmoker Start:18-Dec-2017 Instruction Type:Patient Education How to access health informa tion online - Detail Indication:Nonsmoker Start:18-Dec-2017 Instruction Type:Patient Education Patient Instructions Indication:BMI 28.0-28.9,adult Start:18-Dec-2017 Instruction Type:Provider Instructions for Treatment How to access health informa tion online Indication:Hypercholesteremia Start:07-Aug-2017 Instruction Type:Patient Education How to access health informa tion online - Detail Indication:Hypercholesteremia Start:07-Aug-2017 Instruction Type:Patient Education Patient Instructions Indication:Hypercholesteremia Start:07-Aug-2017 Instruction Type:Provider Instructions for Treatment How to access health informa tion online Indication:Essential hypertension Start:12-Jun-2017 Instruction Type:Patient Education How to access health informa tion online - Detail Indication:Essential hypertension Start:12-Jun-2017 Instruction Type:Patient Education Patient Instructions Indication:Essential hypertension Start:12-Jun-2017 Instruction Type:Provider Instructions for Treatment How to access health informa tion online Indication:Essential hypertension Start:06-Apr-2017 Instruction Type:Patient Education How to access health informa tion online - Detail Indication:Essential hypertension Start:06-Apr-2017 Instruction Type:Patient Education Patient Instructions Indication:Encounter for screening mammogram for breast cancer (Renamed from Encounter for screening mammogram for malignant neoplasm of breast) Start:06-Apr-2017 Instruction Type:Provider Instructions for Treatment Patient Instructions Indication:Vitamin D deficiency Start:27-Nov-2016 Instruction Type:Provider Instructions for Treatment DISCONTINUED - LIPID PANEL ( [id number]) Indication:Atherosclerotic plaque Start:27-Nov-2016 Instruction Type:Patient Education DISCONTINUED - LIPID PANEL ( [id number]) Indication:Other and unspecified hyperlipidemia Start:27-Nov-2016 Instruction Type:Patient Education DISCONTINUED - METABOLIC STRAUSS EL, COMPREHENSIVE ([id number]) Indication:Essential hypertension Start:27-Nov-2016 Instruction Type:Patient Education How to access health informa tion online Indication:Essential hypertension Start:27-Nov-2016 Instruction Type:Patient Education How to access health informa tion online - Detail Indication:Essential hypertension Start:27-Nov-2016 Instruction Type:Patient Education Patient Instructions Indication:Essential hypertension Start:27-Nov-2016 Instruction Type:Provider Instructions for Treatment How to access health informa tion online Indication:Neck pain Start:02-Aug-2016 Instruction Type:Patient Education How to access health informa tion online - Detail Indication:Neck pain Start:02-Aug-2016 Instruction Type:Patient Education Patient Instructions Indication:BMI 27.0-27.9,adult Start:02-Aug-2016 Instruction Type:Provider Instructions for Treatment Patient Instructions Indication:Carotid stenosis, symptomatic w/o infarct, right Start:12-Apr-2016 Instruction Type:Provider Instructions for Treatment How to access health informa tion online Indication:UTI symptoms Start:22-Mar-2016 Instruction Type:Patient Education How to access health informa tion online - Detail Indication:UTI symptoms Start:22-Mar-2016 Instruction Type:Patient Education Patient Instructions Indication:UTI symptoms Start:22-Mar-2016 Instruction Type:Provider Instructions for Treatment How to access health informa tion online Indication:Essential hypertension Start:15-Mar-2016 Instruction Type:Patient Education How to access health informa tion online - Detail Indication:Essential hypertension Start:15-Mar-2016 Instruction Type:Patient Education Patient Instructions Indication:Essential hypertension Start:15-Mar-2016 Instruction Type:Provider Instructions for Treatment How to access health informa tion online Indication:Right sided abdominal pain Start:05-Apr-2015 Instruction Type:Patient Education How to access health informa tion online - Detail Indication:Right sided abdominal pain Start:05-Apr-2015 Instruction Type:Patient Education Patient Instructions Indication:Right sided abdominal pain Start:05-Apr-2015 Instruction Type:Provider Instructions for Treatment How to access health informa tion online Indication:Headache Start:12-Feb-2015 Instruction Type:Patient Education How to access health informa tion online - Detail Indication:Headache Start:12-Feb-2015 Instruction Type:Patient Education Patient Instructions Indication:Headache Start:12-Feb-2015 Instruction Type:Provider Instructions for Treatment How to access health informa tion online Indication:Abdominal pain Start:06-Nov-2014 Instruction Type:Patient Education How to access health informa tion online - Detail Indication:Abdominal pain Start:06-Nov-2014 Instruction Type:Patient Education Patient Instructions Indication:Abdominal pain Start:06-Nov-2014 Instruction Type:Provider Instructions for Treatment Patient Instructions Indication:Chronic cough Start:27-May-2013 Instruction Type:Provider Instructions for Treatment Patient Instructions Indication:Essential hypertension Start:12-Mar-2013 Instruction Type:Provider Instructions for Treatment Patient Instructions Indication:Essential hypertension Start:26-Nov-2012 Instruction Type:Provider Instructions for Treatment Patient Instructions Indication:Essential hypertension Start:17-Jan-2012 Instruction Type:Provider Instructions for Treatment Name Dates Details How to access health informa tion online Indication:Nonsmoker Start:23-Jan-2020 Instruction Type:Patient Education How to access health informa tion online - Detail Indication:Nonsmoker Start:23-Jan-2020 Instruction Type:Patient Education Patient Instructions Indication:BMI 30.0-30.9,adult Start:23-Jan-2020 Instruction Type:Provider Instructions for Treatment How to access health informa tion online Indication:Nonsmoker Start:22-Jul-2019 Instruction Type:Patient Education How to access health informa tion online - Detail Indication:Nonsmoker Start:22-Jul-2019 Instruction Type:Patient Education Patient Instructions Indication:BMI 29.0-29.9,adult Start:22-Jul-2019 Instruction Type:Provider Instructions for Treatment How to access health informa tion online Indication:BMI 29.0-29.9,adult Start:07-Apr-2019 Instruction Type:Patient Education How to access health informa tion online - Detail Indication:BMI 29.0-29.9,adult Start:07-Apr-2019 Instruction Type:Patient Education Patient Instructions Indication:Hand injury, left, initial encounter Start:07-Apr-2019 Instruction Type:Provider Instructions for Treatment How to access health informa tion online - Detail Indication:Nonsmoker Start:06-Sep-2018 Instruction Type:Patient Education How to access health informa tion online Indication:Nonsmoker Start:06-Sep-2018 Instruction Type:Patient Education Patient Instructions Indication:Alzheimer's dementia Start:06-Sep-2018 Instruction Type:Provider Instructions for Treatment How to access health informa tion online Indication:Nonsmoker Start:10-May-2018 Instruction Type:Patient Education How to access health informa tion online - Detail Indication:Nonsmoker Start:10-May-2018 Instruction Type:Patient Education Patient Instructions Indication:BMI 28.0-28.9,adult Start:10-May-2018 Instruction Type:Provider Instructions for Treatment How to access health informa tion online Indication:Nonsmoker Start:15-Jan-2018 Instruction Type:Patient Education How to access health informa tion online - Detail Indication:Nonsmoker Start:15-Jan-2018 Instruction Type:Patient Education Patient Instructions Indication:Nonsmoker Start:15-Jan-2018 Instruction Type:Provider Instructions for Treatment How to access health informa tion online Indication:Nonsmoker Start:18-Dec-2017 Instruction Type:Patient Education How to access health informa tion online - Detail Indication:Nonsmoker Start:18-Dec-2017 Instruction Type:Patient Education Patient Instructions Indication:BMI 28.0-28.9,adult Start:18-Dec-2017 Instruction Type:Provider Instructions for Treatment How to access health informa tion online Indication:Hypercholesteremia Start:07-Aug-2017 Instruction Type:Patient Education How to access health informa tion online - Detail Indication:Hypercholesteremia Start:07-Aug-2017 Instruction Type:Patient Education Patient Instructions Indication:Hypercholesteremia Start:07-Aug-2017 Instruction Type:Provider Instructions for Treatment How to access health informa tion online Indication:Essential hypertension Start:12-Jun-2017 Instruction Type:Patient Education How to access health informa tion online - Detail Indication:Essential hypertension Start:12-Jun-2017 Instruction Type:Patient Education Patient Instructions Indication:Essential hypertension Start:12-Jun-2017 Instruction Type:Provider Instructions for Treatment How to access health informa tion online Indication:Essential hypertension Start:06-Apr-2017 Instruction Type:Patient Education How to access health informa tion online - Detail Indication:Essential hypertension Start:06-Apr-2017 Instruction Type:Patient Education Patient Instructions Indication:Encounter for screening mammogram for breast cancer (Renamed from Encounter for screening mammogram for malignant neoplasm of breast) Start:06-Apr-2017 Instruction Type:Provider Instructions for Treatment Patient Instructions Indication:Vitamin D deficiency Start:27-Nov-2016 Instruction Type:Provider Instructions for Treatment DISCONTINUED - LIPID PANEL ( [id number]) Indication:Atherosclerotic plaque Start:27-Nov-2016 Instruction Type:Patient Education DISCONTINUED - LIPID PANEL ( [id number]) Indication:Other and unspecified hyperlipidemia Start:27-Nov-2016 Instruction Type:Patient Education DISCONTINUED - METABOLIC STRAUSS EL, COMPREHENSIVE ([id number]) Indication:Essential hypertension Start:27-Nov-2016 Instruction Type:Patient Education How to access health informa tion online Indication:Essential hypertension Start:27-Nov-2016 Instruction Type:Patient Education How to access health informa tion online - Detail Indication:Essential hypertension Start:27-Nov-2016 Instruction Type:Patient Education Patient Instructions Indication:Essential hypertension Start:27-Nov-2016 Instruction Type:Provider Instructions for Treatment How to access health informa tion online Indication:Neck pain Start:02-Aug-2016 Instruction Type:Patient Education How to access health informa tion online - Detail Indication:Neck pain Start:02-Aug-2016 Instruction Type:Patient Education Patient Instructions Indication:BMI 27.0-27.9,adult Start:02-Aug-2016 Instruction Type:Provider Instructions for Treatment Patient Instructions Indication:Carotid stenosis, symptomatic w/o infarct, right Start:12-Apr-2016 Instruction Type:Provider Instructions for Treatment How to access health informa tion online Indication:UTI symptoms Start:22-Mar-2016 Instruction Type:Patient Education How to access health informa tion online - Detail Indication:UTI symptoms Start:22-Mar-2016 Instruction Type:Patient Education Patient Instructions Indication:UTI symptoms Start:22-Mar-2016 Instruction Type:Provider Instructions for Treatment How to access health informa tion online Indication:Essential hypertension Start:15-Mar-2016 Instruction Type:Patient Education How to access health informa tion online - Detail Indication:Essential hypertension Start:15-Mar-2016 Instruction Type:Patient Education Patient Instructions Indication:Essential hypertension Start:15-Mar-2016 Instruction Type:Provider Instructions for Treatment How to access health informa tion online Indication:Right sided abdominal pain Start:05-Apr-2015 Instruction Type:Patient Education How to access health informa tion online - Detail Indication:Right sided abdominal pain Start:05-Apr-2015 Instruction Type:Patient Education Patient Instructions Indication:Right sided abdominal pain Start:05-Apr-2015 Instruction Type:Provider Instructions for Treatment How to access health informa tion online Indication:Headache Start:12-Feb-2015 Instruction Type:Patient Education How to access health informa tion online - Detail Indication:Headache Start:12-Feb-2015 Instruction Type:Patient Education Patient Instructions Indication:Headache Start:12-Feb-2015 Instruction Type:Provider Instructions for Treatment How to access health informa tion online Indication:Abdominal pain Start:06-Nov-2014 Instruction Type:Patient Education How to access health informa tion online - Detail Indication:Abdominal pain Start:06-Nov-2014 Instruction Type:Patient Education Patient Instructions Indication:Abdominal pain Start:06-Nov-2014 Instruction Type:Provider Instructions for Treatment Patient Instructions Indication:Chronic cough Start:27-May-2013 Instruction Type:Provider Instructions for Treatment Patient Instructions Indication:Essential hypertension Start:12-Mar-2013 Instruction Type:Provider Instructions for Treatment Patient Instructions Indication:Essential hypertension Start:26-Nov-2012 Instruction Type:Provider Instructions for Treatment Patient Instructions Indication:Essential hypertension Start:17-Jan-2012 Instruction Type:Provider Instructions for Treatment Name Dates Details Nonsmoker : How to access he alth information online Indication:Nonsmoker Nonsmoker : How to access he alth information online - Detail Indication:Nonsmoker BMI 28.0-28.9,adult : Patien t Instructions Indication:BMI 28.0-28.9,adult Nonsmoker : Patient Instruct ions Indication:Nonsmoker Hypercholesteremia : How to access health information online Indication:Hypercholesteremia Hypercholesteremia : How to access health information online - Detail Indication:Hypercholesteremia Hypercholesteremia : Patient Instructions Indication:Hypercholesteremia Essential hypertension : How to access health information online Indication:Essential hypertension Essential hypertension : How to access health information online - Detail Indication:Essential hypertension Essential hypertension : Pat ient Instructions Indication:Essential hypertension Encounter for screening mamm ogram for breast cancer (Renamed from Encounter for screening mammogram for malignant neoplasm of breast) : Patient Instructions Indication:Encounter for screening mammogram for breast cancer (Renamed from Encounter for screening mammogram for malignant neoplasm of breast) Vitamin D deficiency : Patie nt Instructions Indication:Vitamin D deficiency Atherosclerotic plaque : DIS CONTINUED - LIPID PANEL ([id number]) Indication:Atherosclerotic plaque Other and unspecified hyperl ipidemia : DISCONTINUED - LIPID PANEL ([id number]) Indication:Other and unspecified hyperlipidemia Essential hypertension : DIS CONTINUED - METABOLIC PANEL, COMPREHENSIVE ([id number]) Indication:Essential hypertension Neck pain : How to access he alth information online Indication:Neck pain Neck pain : How to access he alth information online - Detail Indication:Neck pain BMI 27.0-27.9,adult : Patien t Instructions Indication:BMI 27.0-27.9,adult Carotid stenosis, symptomati c w/o infarct, right : Patient Instructions Indication:Carotid stenosis, symptomatic w/o infarct, right UTI symptoms : How to access health information online Indication:UTI symptoms UTI symptoms : How to access health information online - Detail Indication:UTI symptoms UTI symptoms : Patient Instr uctions Indication:UTI symptoms Right sided abdominal pain : How to access health information online Indication:Right sided abdominal pain Right sided abdominal pain : How to access health information online - Detail Indication:Right sided abdominal pain Right sided abdominal pain : Patient Instructions Indication:Right sided abdominal pain Headache : How to access hea lth information online Indication:Headache Headache : How to access hea lth information online - Detail Indication:Headache Headache : Patient Instructi ons Indication:Headache Abdominal pain : How to acce ss health information online Indication:Abdominal pain Abdominal pain : How to acce ss health information online - Detail Indication:Abdominal pain Abdominal pain : Patient Ins tructions Indication:Abdominal pain Chronic cough : Patient Inst ructions Indication:Chronic cough Name Dates Details Patient Instructions Indication:Nonsmoker Start:25-May-2020 Instruction Type:Provider Instructions for Treatment How to Access Health Informa tion Online using Patient Portal and [employer] Apps Indication:Nonsmoker Start:25-May-2020 Instruction Type:Patient Education How to access health informa tion online Indication:Nonsmoker Start:23-Jan-2020 Instruction Type:Patient Education How to access health informa tion online - Detail Indication:Nonsmoker Start:23-Jan-2020 Instruction Type:Patient Education Patient Instructions Indication:BMI 30.0-30.9,adult Start:23-Jan-2020 Instruction Type:Provider Instructions for Treatment How to access health informa tion online Indication:Nonsmoker Start:22-Jul-2019 Instruction Type:Patient Education How to access health informa tion online - Detail Indication:Nonsmoker Start:22-Jul-2019 Instruction Type:Patient Education Patient Instructions Indication:BMI 29.0-29.9,adult Start:22-Jul-2019 Instruction Type:Provider Instructions for Treatment How to access health informa tion online Indication:BMI 29.0-29.9,adult Start:07-Apr-2019 Instruction Type:Patient Education How to access health informa tion online - Detail Indication:BMI 29.0-29.9,adult Start:07-Apr-2019 Instruction Type:Patient Education Patient Instructions Indication:Hand injury, left, initial encounter Start:07-Apr-2019 Instruction Type:Provider Instructions for Treatment How to access health informa tion online - Detail Indication:Nonsmoker Start:06-Sep-2018 Instruction Type:Patient Education How to access health informa tion online Indication:Nonsmoker Start:06-Sep-2018 Instruction Type:Patient Education Patient Instructions Indication:Alzheimer's dementia Start:06-Sep-2018 Instruction Type:Provider Instructions for Treatment How to access health informa tion online Indication:Nonsmoker Start:10-May-2018 Instruction Type:Patient Education How to access health informa tion online - Detail Indication:Nonsmoker Start:10-May-2018 Instruction Type:Patient Education Patient Instructions Indication:BMI 28.0-28.9,adult Start:10-May-2018 Instruction Type:Provider Instructions for Treatment How to access health informa tion online Indication:Nonsmoker Start:15-Jan-2018 Instruction Type:Patient Education How to access health informa tion online - Detail Indication:Nonsmoker Start:15-Jan-2018 Instruction Type:Patient Education Patient Instructions Indication:Nonsmoker Start:15-Jan-2018 Instruction Type:Provider Instructions for Treatment How to access health informa tion online Indication:Nonsmoker Start:18-Dec-2017 Instruction Type:Patient Education How to access health informa tion online - Detail Indication:Nonsmoker Start:18-Dec-2017 Instruction Type:Patient Education Patient Instructions Indication:BMI 28.0-28.9,adult Start:18-Dec-2017 Instruction Type:Provider Instructions for Treatment How to access health informa tion online Indication:Hypercholesteremia Start:07-Aug-2017 Instruction Type:Patient Education How to access health informa tion online - Detail Indication:Hypercholesteremia Start:07-Aug-2017 Instruction Type:Patient Education Patient Instructions Indication:Hypercholesteremia Start:07-Aug-2017 Instruction Type:Provider Instructions for Treatment How to access health informa tion online Indication:Essential hypertension Start:12-Jun-2017 Instruction Type:Patient Education How to access health informa tion online - Detail Indication:Essential hypertension Start:12-Jun-2017 Instruction Type:Patient Education Patient Instructions Indication:Essential hypertension Start:12-Jun-2017 Instruction Type:Provider Instructions for Treatment How to access health informa tion online Indication:Essential hypertension Start:06-Apr-2017 Instruction Type:Patient Education How to access health informa tion online - Detail Indication:Essential hypertension Start:06-Apr-2017 Instruction Type:Patient Education Patient Instructions Indication:Encounter for screening mammogram for breast cancer (Renamed from Encounter for screening mammogram for malignant neoplasm of breast) Start:06-Apr-2017 Instruction Type:Provider Instructions for Treatment Patient Instructions Indication:Vitamin D deficiency Start:27-Nov-2016 Instruction Type:Provider Instructions for Treatment DISCONTINUED - LIPID PANEL ( [id number]) Indication:Atherosclerotic plaque Start:27-Nov-2016 Instruction Type:Patient Education DISCONTINUED - LIPID PANEL ( [id number]) Indication:Other and unspecified hyperlipidemia Start:27-Nov-2016 Instruction Type:Patient Education DISCONTINUED - METABOLIC STRAUSS EL, COMPREHENSIVE ([id number]) Indication:Essential hypertension Start:27-Nov-2016 Instruction Type:Patient Education How to access health informa tion online Indication:Essential hypertension Start:27-Nov-2016 Instruction Type:Patient Education How to access health informa tion online - Detail Indication:Essential hypertension Start:27-Nov-2016 Instruction Type:Patient Education Patient Instructions Indication:Essential hypertension Start:27-Nov-2016 Instruction Type:Provider Instructions for Treatment How to access health informa tion online Indication:Neck pain Start:02-Aug-2016 Instruction Type:Patient Education How to access health informa tion online - Detail Indication:Neck pain Start:02-Aug-2016 Instruction Type:Patient Education Patient Instructions Indication:BMI 27.0-27.9,adult Start:02-Aug-2016 Instruction Type:Provider Instructions for Treatment Patient Instructions Indication:Carotid stenosis, symptomatic w/o infarct, right Start:12-Apr-2016 Instruction Type:Provider Instructions for Treatment How to access health informa tion online Indication:UTI symptoms Start:22-Mar-2016 Instruction Type:Patient Education How to access health informa tion online - Detail Indication:UTI symptoms Start:22-Mar-2016 Instruction Type:Patient Education Patient Instructions Indication:UTI symptoms Start:22-Mar-2016 Instruction Type:Provider Instructions for Treatment How to access health informa tion online Indication:Essential hypertension Start:15-Mar-2016 Instruction Type:Patient Education How to access health informa tion online - Detail Indication:Essential hypertension Start:15-Mar-2016 Instruction Type:Patient Education Patient Instructions Indication:Essential hypertension Start:15-Mar-2016 Instruction Type:Provider Instructions for Treatment How to access health informa tion online Indication:Right sided abdominal pain Start:05-Apr-2015 Instruction Type:Patient Education How to access health informa tion online - Detail Indication:Right sided abdominal pain Start:05-Apr-2015 Instruction Type:Patient Education Patient Instructions Indication:Right sided abdominal pain Start:05-Apr-2015 Instruction Type:Provider Instructions for Treatment How to access health informa tion online Indication:Headache Start:12-Feb-2015 Instruction Type:Patient Education How to access health informa tion online - Detail Indication:Headache Start:12-Feb-2015 Instruction Type:Patient Education Patient Instructions Indication:Headache Start:12-Feb-2015 Instruction Type:Provider Instructions for Treatment How to access health informa tion online Indication:Abdominal pain Start:06-Nov-2014 Instruction Type:Patient Education How to access health informa tion online - Detail Indication:Abdominal pain Start:06-Nov-2014 Instruction Type:Patient Education Patient Instructions Indication:Abdominal pain Start:06-Nov-2014 Instruction Type:Provider Instructions for Treatment Patient Instructions Indication:Chronic cough Start:27-May-2013 Instruction Type:Provider Instructions for Treatment Patient Instructions Indication:Essential hypertension Start:12-Mar-2013 Instruction Type:Provider Instructions for Treatment Patient Instructions Indication:Essential hypertension Start:26-Nov-2012 Instruction Type:Provider Instructions for Treatment Patient Instructions Indication:Essential hypertension Start:17-Jan-2012 Instruction Type:Provider Instructions for Treatment Advance Directives No Advanced Directives Records Found Name Dates Details Immunization Registry [employer] - Effective on 07/05/2020. Expiration date unspecified Effective:05-Jul-2020 Name Dates Details Immunization Registry [employer] - Effective on 07/05/2020. Expiration date unspecified Effective:05-Jul-2020 Name Dates Details Immunization Registry [employer] - Effective on 07/05/2020. Expiration date unspecified Effective:05-Jul-2020 Name Dates Details Immunization Registry [employer] - Effective on 07/05/2020. Expiration date unspecified Effective:05-Jul-2020 Name Dates Details Immunization Registry [employer] - Effective on 07/05/2020. Expiration date unspecified Effective:05-Jul-2020 Name Dates Details Immunization Registry [employer] - Effective on 07/05/2020. Expiration date unspecified Effective:05-Jul-2020 Name Dates Details Immunization Registry [employer] - Effective on 07/05/2020. Expiration date unspecified Effective:05-Jul-2020 Name Dates Details Immunization Registry [employer] - Effective on 07/05/2020. Expiration date unspecified Effective:05-Jul-2020 Name Dates Details Immunization Registry [employer] - Effective on 07/05/2020. Expiration date unspecified Effective:05-Jul-2020 Advance Directive Response Recorded Date/ Time Living Will No November 15, 2021 4:57pm Power of Welder Machine Operator Yes November 4:57pm Name of Medical Power of Welder Machine Operator deisi cr November 15, 2021 4:57pm Name Dates Details Immunization Registry [employer] - Effective on 07/05/2020. Expiration date unspecified Effective:05-Jul-2020 Name Dates Details Immunization Registry [employer] - Effective on 07/05/2020. Expiration date unspecified Effective:05-Jul-2020 Name Dates Details Immunization Registry [employer] - Effective on 07/05/2020. Expiration date unspecified Effective:05-Jul-2020 Name Dates Details Immunization Registry [employer] - Effective on 07/05/2020. Expiration date unspecified Effective:05-Jul-2020 Name Dates Details Immunization Registry [employer] - Effective on 07/05/2020. Expiration date unspecified Effective:05-Jul-2020 Name Dates Details Immunization Registry [employer] - Effective on 07/05/2020. Expiration date unspecified Effective:05-Jul-2020 Advance Directive Response Recorded Date/ Time Name of Medical Power of Welder Machine Operator [facility] June 04, 2022 5:55pm Living Will Yes June 04, 2022 5:55pm Power of Welder Machine Operator Yes June 04 5:55pm Name Dates Details Immunization Registry [employer] - Effective on 07/05/2020. Expiration date unspecified Effective:05-Jul-2020 Name Dates Details Immunization Registry [employer] - Effective on 07/05/2020. Expiration date unspecified Effective:05-Jul-2020 Name Dates Details Immunization Registry [employer] - Effective on 07/05/2020. Expiration date unspecified Effective:05-Jul-2020 Advance Directive Response Recorded Date/ Time Living Will Yes May 23, 2023 10:54am Power of Welder Machine Operator Joon May 22 10:54am Name of Medical Power of Welder Machine Operator Deisi Cr May 23, 2023 10:54am Chief Complaint and Reason for Visit Chief Complaint CELLULITIS Chief Complaint XRAY LOC Chief Complaint COUGH Summary Purpose Additional Source Comments Goals (unrecognized section and content) Goals may be documented in a n alternate sectionGoals may be documented in an alternate sectionGoals may be documented in an alternate section Care Teams (unrecognized sec tion and content) Team Status: Active Member Role Status Dates Mary Bethea SALES REPRESENTATIVE METALS, SALES REPRESENTATIVE METALS-C Family Provider Active Marivel Cox NP-C Primary Care Provider Active Team Status: Inactive Member Role Status Dates Marivel Cox NP-C Primary Care Provider Active Dr. Ruddy Cabezas MD Attending Provider Active Team Status: Inactive Member Role Status Dates Marivel Cox NP-C Primary Care Provider Active Dr. Marilyn Mayers , Emergency Provider Active Team Status: Inactive Member Role Status Dates Marivel Cox NP-C Primary Care Provider Active Dr. Adolph Garcia , Emergency Provider Active INFORMATION SOURCE (unrecogn ized section and content) DATE CREATED AUTHOR 06/08/2022 [facility] DATE CREATED AUTHOR AUTHOR'S ORGANIZ ATION 07/12/2024 [facility] FOR RECORDS PERTAINING TO PATIENTS WHO ARE OR HAVE BEEN ENROLLED IN A CHEMICAL DEPENDENCY/SUBSTANCEABUSE PROGRAM, SOME INFORMATION MAY BE OMITTED. This clinical summary was aggregated from multiple sources. Caution should be exercised in using it in the provision of clinical care. This summary normalizes information from multiple sources, and as a consequence, information in this document may materially change the coding, format and clinical context of patient data. In addition, data may be omitted in some cases. CLINICAL DECISIONS SHOULD BE BASED ON THE PRIMARY CLINICAL RECORDS. [email or web address] provides no warranty or guarantee of the accuracy or completeness of information in this document.
[2025-03-01 17:52] VITALS: PULSE 89; RESP 20; O2SAT 99
[2025-03-01] MEDS: Lidocaine/Epi/Tetracaine 50 ML 1 APPLIC TOPICAL (17:59)
[2025-03-01] MEDS: Lidocaine 1% (20 ml mdv) 20 ML Vial INFILT (17:59)
[2025-03-01 18:00] VITALS: PULSE 84; RESP 20; O2SAT 100
[2025-03-01 18:07] VITALS: BMI 19.4
== END 2025-03-01 20:12 | disposition home or self-care (01) ==
PROVIDERS: Emergency Provider Emergency Medicine; PCP Nurse Practitioner Family; Visit Provider Emergency Medicine
DX: S01.111A Laceration without foreign body of right eyelid and periocular area, initial encounter (principal); F03.90 Unspecified dementia, unspecified severity, without behavioral disturbance, psychotic disturbance, mood disturbance, and anxiety; S05.11XA Contusion of eyeball and orbital tissues, right eye, initial encounter; Z23 Encounter for immunization; W18.30XA Fall on same level, unspecified, initial encounter; Z86.16 Personal history of COVID-19
CPT/HCPCS: 99282; 70480; 90471; 90715